=== PATIENT | male | born 1955 | race Caucasian/White ===

== ENCOUNTER → 2017-01-30 | Outpatient (CLI) | payer OTHER | END | disposition home or self-care (01) | LOC: LAB 10:38 | PROVIDERS: ATTEND Internal Medicine | DX: J45.31 Mild persistent asthma with (acute) exacerbation (principal) | CPT/HCPCS: 87086 ==

== ENCOUNTER 2017-07-10 16:49 | Inpatient (IN) | payer OTHER ==
[~2017-07-10] VITALS: Ht 165.1 cm; Wt 83.9 kg
[~2017-07-10 16:49] MED LIST: ASPI81CH43 PO; DOCU-94 PO; GABA-339 PO; IBUP800T24 PO; LOSA50TA6 PO; MORP15TA PO; OMEP20CA74 PO; SERT-274 PO
[2017-07-10] MEDS ORDERED: SODIUM CHLORIDE 0.9% 1,000 ML IV ONE (17:45)
[2017-07-10 17:55] LABS: Basophils # (auto) 0.1 uL; Basophils % (auto) 0.6 % (0.0-2.0); CONDITION Y; Eosinophils # (auto) 0.1 uL; Hemoglobin 15.6 g/dL (12.2-16.2); Mean Corpuscular Hemoglobin 29.9 pg (28.0-32.0); Mean Corpuscular Hgb Conc. 34.7 g/dL (32.0-36.0); Mean Corpuscular Volume 85.9 fL (80.0-100.0); Mean Platelet Volume 7.1 fL (7.4-10.4); Monocytes # (auto) 0.4 uL; Monocytes % (auto) 3.8 % (0.0-12.0); Neutrophils # (auto) 6.8 uL; Neutrophils % (auto) 65.6 % (37.0-80.0); Platelet Count (auto) 350 10^3/uL (140-450); Red Cell Distribution Width 14.3 % (11.6-16.0); White Blood Cell 10.4 10^3/uL (4.4-10.8)
[2017-07-10 18:12] LABS: Albumin 3.5 g/dL (3.4-5.0); BUN/Creatinine Ratio 11.8; Potassium 3.9 mmol/L (3.5-5.1)
[2017-07-10 18:14] LABS: Bilirubin, Total 0.4 mg/dL (0.2-1.0); Total Protein 7.4 g/dL (6.4-8.2)
[2017-07-10 18:18] LABS: Acetaminophen < 2.0 ug/mL (10-30); Salicylate < 1.7 mg/dL (2.8-20.0)
[2017-07-10] MEDS: SODIUM CHLORIDE 0.9% 1,000 ML IV SCH (20:01)
[2017-07-10] MEDS ORDERED: ONDANSETRON HCL 4 MG/2 ML VIAL IV PRN (20:15)
[2017-07-10] MEDS ORDERED: MORPHINE SULF INJ 2 MG/ML SYRINGE 1ML IV PRN (20:15)
[2017-07-10] MEDS ORDERED: DOCUSATE SOD 100 MG CAP PO PRN (20:15)
[2017-07-10] MEDS ORDERED: METOCLOPRAMIDE HCL 5MG/ml INJ 2ml VIAL IV PRN (20:15)
[2017-07-10] MEDS ORDERED: ALUM & MAG HYDROX-SIMETH LIQ(MAALOX) 30 ML PO PRN (20:15)
[2017-07-10] MEDS ORDERED: NITROGLYCERIN 0.4 MG SL TAB SL PRN (20:15)
[2017-07-10] MEDS ORDERED: DEXTROSE (50%) 50ML SYRG IV PRN (20:15)
[2017-07-10] MEDS: InsuLIN REG 1unit/0.01ml Soln (100units/ml) SC SCH (22:00)
[2017-07-10] MEDS: ACCU-CHEK COMFORT CURVE STRIP VI SCH (22:06)
[2017-07-11 00:53] VITALS: BP 166/102
[2017-07-11] MEDS: InsuLIN REG 1unit/0.01ml Soln (100units/ml) SC SCH ×6 (07:00→22:34)
[2017-07-11] MEDS: ACCU-CHEK COMFORT CURVE STRIP VI SCH ×4 (07:22→22:00)
[2017-07-11 08:19] LABS: Basophils # (auto) 0 uL; Basophils % (auto) 0.4 % (0.0-2.0); CONDITION Y; Eosinophils # (auto) 0.1 uL; Eosinophils % (auto) 0.6 % (0.0-7.0); Hematocrit 46.6 % (36.0-46.0); Hemoglobin 15.9 g/dL (12.2-16.2); Lymphocytes # (auto) 3.2 uL; Lymphocytes % (auto) 29.6 % (10.0-50.0); Mean Corpuscular Hemoglobin 29.8 pg (28.0-32.0); Mean Corpuscular Hgb Conc. 34.2 g/dL (32.0-36.0); Mean Corpuscular Volume 87.3 fL (80.0-100.0); Mean Platelet Volume 7.1 fL (7.4-10.4); Monocytes # (auto) 0.6 uL; Monocytes % (auto) 5.3 % (0.0-12.0); Neutrophils # (auto) 6.9 uL; Neutrophils % (auto) 64.1 % (37.0-80.0); Platelet Count (auto) 388 10^3/uL (140-450); Red Cell Distribution Width 14.4 % (11.6-16.0); White Blood Cell 10.8 10^3/uL (4.4-10.8)
[2017-07-11 08:33] LABS: Potassium 3.8 mmol/L (3.5-5.1)
[2017-07-11 08:38] LABS: Albumin 3.7 g/dL (3.4-5.0); BUN/Creatinine Ratio 11.6; Calcium 9.2 mg/dL (8.5-10.1)
[2017-07-11 08:40] LABS: Bilirubin, Total 0.5 mg/dL (0.2-1.0); Total Protein 7.7 g/dL (6.4-8.2)
[2017-07-11] MEDS: SODIUM CHLORIDE 0.9% 1,000 ML IV SCH (12:41)
[2017-07-11 22:00] VITALS: BP 156/94
[2017-07-11] MEDS: HYDROcodone-ACET 5/325MG TAB PO PRN (22:26)
[2017-07-12] MEDS: HYDROcodone-ACET 5/325MG TAB PO PRN ×3 (04:42→20:21)
[2017-07-12 05:12] VITALS: BP 155/74
[2017-07-12] MEDS: SODIUM CHLORIDE 0.9% 1,000 ML IV SCH ×2 (05:21→22:01)
[2017-07-12 06:24] LABS: Basophils # (auto) 0 uL; Basophils % (auto) 0.3 % (0.0-2.0); CONDITION Y; Eosinophils # (auto) 0.1 uL; Eosinophils % (auto) 1.3 % (0.0-7.0); Hematocrit 45.9 % (36.0-46.0); Hemoglobin 15.9 g/dL (12.2-16.2); Lymphocytes # (auto) 4.1 uL; Lymphocytes % (auto) 42.8 % (10.0-50.0); Mean Corpuscular Hemoglobin 30.3 pg (28.0-32.0); Mean Corpuscular Hgb Conc. 34.7 g/dL (32.0-36.0); Mean Corpuscular Volume 87.3 fL (80.0-100.0); Mean Platelet Volume 7.4 fL (7.4-10.4); Monocytes # (auto) 0.6 uL; Monocytes % (auto) 5.7 % (0.0-12.0); Neutrophils # (auto) 4.8 uL; Neutrophils % (auto) 49.9 % (37.0-80.0); Platelet Count (auto) 384 10^3/uL (140-450); Red Cell Distribution Width 14.4 % (11.6-16.0); White Blood Cell 9.7 10^3/uL (4.4-10.8)
[2017-07-12 06:45] LABS: Albumin 3.6 g/dL (3.4-5.0); Potassium 3.6 mmol/L (3.5-5.1)
[2017-07-12 06:48] LABS: BUN/Creatinine Ratio 17.9
[2017-07-12 06:50] LABS: Bilirubin, Total 0.6 mg/dL (0.2-1.0); Total Protein 7.4 g/dL (6.4-8.2)
[2017-07-12] MEDS: ACCU-CHEK COMFORT CURVE STRIP VI SCH ×4 (07:10→21:38)
[2017-07-12] MEDS: InsuLIN REG 1unit/0.01ml Soln (100units/ml) SC SCH ×4 (07:11→21:38)
[2017-07-12 08:00] VITALS: BP 198/89
[2017-07-12] MEDS ORDERED: cloNIDine HCL 0.1 MG TAB PO PRN (12:45)
[2017-07-12 20:00] VITALS: BP 121/49
[2017-07-12 22:00] VITALS: BP 121/49
[2017-07-13] MEDS: HYDROcodone-ACET 5/325MG TAB PO PRN ×2 (01:19→10:48)
[2017-07-13 05:00] VITALS: BP 144/78
[2017-07-13] MEDS: InsuLIN REG 1unit/0.01ml Soln (100units/ml) SC SCH ×4 (06:02→21:56)
[2017-07-13] MEDS: ACCU-CHEK COMFORT CURVE STRIP VI SCH ×4 (06:03→21:56)
[2017-07-13 09:00] VITALS: BP 147/83
[2017-07-13] MEDS ORDERED: HYDROcodone-ACET 10/325MG TAB PO ONE (12:30)
[2017-07-13 12:35] VITALS: BP 155/73
[2017-07-13] MEDS ORDERED: IBUP800T24 PO (15:48)
[2017-07-13] MEDS ORDERED: OMEP20CA74 PO (15:50)
[2017-07-13] MEDS ORDERED: INSUINJ IJ (15:52)
[2017-07-13] MEDS ORDERED: INSUINJ2 SC (15:53)
[2017-07-13] MEDS ORDERED: HYDR-2651 PO (15:54)
[2017-07-13] MEDS ORDERED: ASPI-498 PO (15:56)
[2017-07-13] MEDS ORDERED: LORazepam 2MG/ML-1ML VIAL IV PRN (16:15)
[2017-07-13] MEDS: HYDROcodone-ACET 10/325MG TAB PO PRN ×2 (16:20→20:30)
[2017-07-13 17:00] VITALS: BP 156/66
[2017-07-13] MEDS: SODIUM CHLORIDE 0.9% 1,000 ML IV SCH (17:41)
[2017-07-13 22:00] VITALS: BP 158/63
[2017-07-14] MEDS: HYDROcodone-ACET 10/325MG TAB PO PRN ×2 (02:49→08:45)
[2017-07-14] MEDS: InsuLIN REG 1unit/0.01ml Soln (100units/ml) SC SCH ×2 (06:33→11:30)
[2017-07-14] MEDS: ACCU-CHEK COMFORT CURVE STRIP VI SCH ×2 (06:33→11:30)
[2017-07-14] MEDS: SODIUM CHLORIDE 0.9% 1,000 ML IV SCH (07:21)
[2017-07-14] MEDS ORDERED: cefTRIAXone 1GM/50ML D5W 50 ML IV SCH (11:45)
== END 2017-07-14 16:08 | disposition home or self-care (01) | DRG 948 ==
LOC: EDBD 16:49 → EDUNIT# 16:49 → ER 16:58 → TELE 16:59 → TELE-WESTW 22:35
PROVIDERS: ADMIT Internal Medicine; ATTEND Family Medicine
DX: R41.82 Altered mental status, unspecified (principal); R45.851 Suicidal ideations; E11.40 Type 2 diabetes mellitus with diabetic neuropathy, unspecified; N39.0 Urinary tract infection, site not specified; E11.65 Type 2 diabetes mellitus with hyperglycemia; E66.01 Morbid (severe) obesity due to excess calories; M54.89 Other dorsalgia; F32.9 Major depressive disorder, single episode, unspecified; F41.9 Anxiety disorder, unspecified; I10 Essential (primary) hypertension; M51.36 Other intervertebral disc degeneration, lumbar region; G89.4 Chronic pain syndrome; J44.9 Chronic obstructive pulmonary disease, unspecified; Z86.73 Personal history of transient ischemic attack (TIA), and cerebral infarction without residual deficits; Z87.11 Personal history of peptic ulcer disease; Z79.4 Long term (current) use of insulin; Z83.3 Family history of diabetes mellitus; Z82.49 Family history of ischemic heart disease and other diseases of the circulatory system; Z91.041 Radiographic dye allergy status; Z79.82 Long term (current) use of aspirin; T42.4X5A Adverse effect of benzodiazepines, initial encounter
CPT/HCPCS: 36415; 51702; 70450; 71010; 80053; 80320; 80329; 82962; 85025; 96360; 99291; J1815

== ENCOUNTER 2017-07-14 13:55 | Emergency (ER) | payer OTHER ==
[~2017-07-14] VITALS: Ht 160 cm; Wt 72.6 kg
[~2017-07-14 13:55] MED LIST changes: +ASPI-498 PO; +HYDR-2651 PO; +INSUINJ IJ; +INSUINJ2 SC
[2017-07-14] MEDS ORDERED: HYDROcodone-ACET 5/325MG TAB PO ONE (15:30)
[2017-07-14] MEDS ORDERED: cloNIDine HCL 0.1 MG TAB PO ONE (15:30)
[2017-07-14] MEDS ORDERED: MORPHINE SULFATE 4 MG/ML SYRG IM ONE (17:00)
[2017-07-14] MEDS ORDERED: ONDANSETRON ODT 4 MG TAB PO ONE (17:00)
[2017-07-14 17:01] VITALS: BP 123/83
== END 2017-07-14 17:22 | disposition short-term general hospital (02) ==
LOC: ER 13:55
DX: F32.9 Major depressive disorder, single episode, unspecified (principal); F41.9 Anxiety disorder, unspecified; G89.29 Other chronic pain; R45.851 Suicidal ideations; M54.9 Dorsalgia, unspecified; J44.9 Chronic obstructive pulmonary disease, unspecified; E11.22 Type 2 diabetes mellitus with diabetic chronic kidney disease; N18.6 End stage renal disease; I12.0 Hypertensive chronic kidney disease with stage 5 chronic kidney disease or end stage renal disease; Z90.710 Acquired absence of both cervix and uterus; Z90.49 Acquired absence of other specified parts of digestive tract; I25.2 Old myocardial infarction
CPT/HCPCS: 96372; 99285; J2270

== ENCOUNTER 2017-08-19 15:20 | Inpatient (IN) | payer OTHER ==
[~2017-08-19] VITALS: Ht 162.6 cm; Wt 76.3 kg
[2017-08-19 15:00] VITALS: BP 152/75
[~2017-08-19 15:20] MED LIST changes: -ASPI81CH43 PO; -DOCU-94 PO; -GABA-339 PO; -LOSA50TA6 PO; -MORP15TA PO; -SERT-274 PO
[2017-08-19 18:00] VITALS: BP 110/62
[2017-08-19 21:16] VITALS: BP 135/75
[2017-08-19] MEDS ORDERED: GABA-497 PO (21:49)
[2017-08-19] MEDS ORDERED: LOSA25TA9 PO (21:49)
[2017-08-19] MEDS ORDERED: MORP30TA39 PO (21:49)
[2017-08-19] MEDS ORDERED: SERT-138 PO (21:49)
[2017-08-19] MEDS ORDERED: SODIUM CHLORIDE 0.9% 1,000 ML IV SCH (23:56)
[2017-08-20] MEDS ORDERED: DEXTROSE (50%) 50ML SYRG IV PRN
[2017-08-20] MEDS ORDERED: TEMAZEPAM 15 MG CAP PO PRN
[2017-08-20] MEDS ORDERED: ACETAMINOPHEN 325 MG TAB PO PRN
[2017-08-20] MEDS ORDERED: ONDANSETRON HCL 4 MG/2 ML VIAL IV PRN
[2017-08-20] MEDS ORDERED: hydrALAZINE HCL 25 MG TAB PO ONE (00:15)
[2017-08-20] MEDS: InsuLIN REG 1unit/0.01ml Soln (100units/ml) SC SCH ×4 (00:52→18:31)
[2017-08-20 00:59] LABS: Basophils # (auto) 0.1 uL; Basophils % (auto) 0.7 % (0.0-2.0); Eosinophils # (auto) 0.1 uL; Eosinophils % (auto) 0.6 % (0.0-7.0); Hematocrit 41.6 % (36.0-46.0); Hemoglobin 14.2 g/dL (12.2-16.2); Lymphocytes # (auto) 3.4 uL; Lymphocytes % (auto) 38.1 % (10.0-50.0); Mean Corpuscular Hemoglobin 30.6 pg (28.0-32.0); Mean Corpuscular Hgb Conc. 34.1 g/dL (32.0-36.0); Mean Corpuscular Volume 89.7 fL (80.0-100.0); Mean Platelet Volume 7.3 fL (6.9-10.8); Monocytes # (auto) 0.6 uL; Monocytes % (auto) 6.7 % (0.0-12.0); Neutrophils # (auto) 4.8 uL; Neutrophils % (auto) 53.9 % (37.0-80.0); Nucleated Red Blood Cells % 0.1 %; Platelet Count (auto) 253 10^3/uL (140-450); Red Cell Distribution Width 14.2 % (11.8-14.3); White Blood Cell 8.9 10^3/uL (4.4-10.8)
[2017-08-20 01:21] LABS: Albumin 3.6 g/dL (3.4-5.0); Calcium 9.1 mg/dL (8.5-10.1); Potassium 3.3 mmol/L (3.5-5.1)
[2017-08-20 01:23] LABS: BUN/Creatinine Ratio 18.4
[2017-08-20 01:30] LABS: Bilirubin, Total 0.5 mg/dL (0.2-1.0); Total Protein 7.1 g/dL (6.4-8.2)
[2017-08-20 05:29] VITALS: BP 139/70
[2017-08-20] MEDS: ACCU-CHEK COMFORT CURVE STRIP VI SCH ×4 (06:22→18:00)
[2017-08-20 09:00] VITALS: BP 152/92
[2017-08-20] MEDS ORDERED: LOSARTAN POTASSIUM 25 MG TAB PO SCH (10:00)
[2017-08-20] MEDS ORDERED: ENOXAPARIN SOD 40 MG/0.4 ML SYRINGE SC SCH (10:00)
[2017-08-20] MEDS ORDERED: SERTRALINE HCL 50 MG TAB PO SCH (10:00)
[2017-08-20] MEDS ORDERED: FAMOTIDINE 20 MG TAB PO SCH (10:00)
[2017-08-20] MEDS ORDERED: GABAPENTIN 300 MG CAP PO SCH (10:00)
[2017-08-20] MEDS: hydrALAZINE HCL 25 MG TAB PO SCH ×2 (11:12→11:17)
[2017-08-20 13:00] VITALS: BP 145/74
[2017-08-20] MEDS ORDERED: HYDROcodone-ACET 5/325MG TAB PO PRN ×2 (13:00)
[2017-08-20] MEDS ORDERED: MORPHINE SULF INJ 2 MG/ML SYRINGE 1ML IV ONE (13:45)
[2017-08-20 17:00] VITALS: BP 153/96
== END 2017-08-20 20:00 | DRG 918 ==
LOC: TELE-CENTR 15:20
PROVIDERS: ADMIT Internal Medicine; ATTEND Internal Medicine
DX: T50.992A Poisoning by other drugs, medicaments and biological substances, intentional self-harm, initial encounter (principal); I10 Essential (primary) hypertension; F32.9 Major depressive disorder, single episode, unspecified; F12.90 Cannabis use, unspecified, uncomplicated; E11.9 Type 2 diabetes mellitus without complications; G89.29 Other chronic pain; M54.9 Dorsalgia, unspecified; J44.9 Chronic obstructive pulmonary disease, unspecified; Z82.49 Family history of ischemic heart disease and other diseases of the circulatory system; Y92.098 Other place in other non-institutional residence as the place of occurrence of the external cause; Z86.73 Personal history of transient ischemic attack (TIA), and cerebral infarction without residual deficits; Z59.0 Homelessness; Z81.8 Family history of other mental and behavioral disorders; Z91.041 Radiographic dye allergy status
CPT/HCPCS: 36415; 80053; 80307; 82962; 85025; J1815

== ENCOUNTER 2017-08-21 08:30 | Emergency (ER) | payer OTHER ==
[~2017-08-21] VITALS: Ht 160 cm; Wt 77.1 kg
[~2017-08-21 08:30] MED LIST changes: +GABA-497 PO; -HYDR-2651 PO; +HYDR25TA35 PO; +LOSA25TA9 PO; +MORP30TA39 PO; +SERT-138 PO
[2017-08-21] MEDS ORDERED: OMEPRAZOLE 20MG/10ML ORAL SUSP PO ONE (10:45)
[2017-08-21] MEDS ORDERED: SERTRALINE HCL 50 MG TAB PO ONE (10:45)
[2017-08-21] MEDS ORDERED: LOSARTAN POTASSIUM 25 MG TAB PO ONE (10:45)
[2017-08-21] MEDS ORDERED: ASPirin-EC 81 mg tab PO ONE (10:45)
[2017-08-21] MEDS ORDERED: hydrALAZINE HCL 25 MG TAB PO ONE (10:45)
[2017-08-21] MEDS ORDERED: IBUPROFEN 800 MG TAB PO ONE (10:45)
[2017-08-21] MEDS ORDERED: PANTOPRAZOLE 40 MG TAB PO SCH (11:00)
[2017-08-21] MEDS ORDERED: InsuLIN REG 1unit/0.01ml Soln (100units/ml) SC SCH ×2 (11:30→12:00)
[2017-08-21] MEDS ORDERED: DEXTROSE (50%) 50ML SYRG IV ONE (11:45)
[2017-08-21] MEDS ORDERED: ACCU-CHEK COMFORT CURVE STRIP VI SCH (12:00)
[2017-08-21] MEDS ORDERED: DEXTROSE (50%) 50ML SYRG IV PRN (12:00)
[2017-08-21] MEDS ORDERED: GABAPENTIN 300 MG CAP PO ONE (14:45)
[2017-08-21 15:33] VITALS: BP 157/98
[2017-08-21] MEDS ORDERED: InsuLIN REG 1unit/0.01ml Soln (100units/ml) SC ONE (17:00)
[2017-08-21] MEDS ORDERED: ACCU-CHEK COMFORT CURVE STRIP VI ONE (17:00)
[2017-08-21] MEDS ORDERED: IBUPROFEN 800 MG TAB PO SCH (18:00)
[2017-08-21] MEDS ORDERED: GABAPENTIN 300 MG CAP PO SCH (22:00)
[2017-08-21] MEDS ORDERED: hydrALAZINE HCL 25 MG TAB PO SCH (22:00)
[2017-08-22] MEDS ORDERED: SERTRALINE HCL 50 MG TAB PO SCH (10:00)
[2017-08-22] MEDS ORDERED: ASPirin-EC 81 mg tab PO SCH (10:00)
[2017-08-22] MEDS ORDERED: OMEPRAZOLE 20MG/10ML ORAL SUSP PO SCH (10:00)
[2017-08-22] MEDS ORDERED: LOSARTAN POTASSIUM 25 MG TAB PO SCH (10:00)
== END 2017-08-21 15:57 | disposition short-term general hospital (02) ==
LOC: ER 08:30
DX: R45.851 Suicidal ideations (principal); F31.9 Bipolar disorder, unspecified; E11.9 Type 2 diabetes mellitus without complications; I12.0 Hypertensive chronic kidney disease with stage 5 chronic kidney disease or end stage renal disease; N18.6 End stage renal disease; Z90.49 Acquired absence of other specified parts of digestive tract; Z90.710 Acquired absence of both cervix and uterus
CPT/HCPCS: 96372; 99285; J1815

== ENCOUNTER 2017-11-15 19:44 | Emergency (ER) | payer OTHER, MEDICAID ==
[~2017-11-15] VITALS: Ht 162.6 cm; Wt 72.6 kg
[~2017-11-15 19:44] MED LIST changes: -GABA-497 PO; +GABA300C10 PO; +MORP-74 PO; -MORP30TA39 PO
[2017-11-15] MEDS ORDERED: LIDOCAINE 1% HCL (LOCAL ANESTH.) INJ 20ML MDV ONE (19:59)
[2017-11-15] MEDS ORDERED: ONDANSETRON HCL 4 MG/2 ML VIAL IV ONE (20:15)
[2017-11-15] MEDS ORDERED: HYDROmorphone HCL 2 MG/ML VL IV ONE (20:15)
[2017-11-15 21:46] VITALS: BP 150/81
[2017-11-15] MEDS ORDERED: HYDROcodone-ACET 10/325MG TAB PO ONE (22:00)
== END 2017-11-15 22:42 | disposition home or self-care (01) ==
LOC: ER 19:44 → EDBD 19:44 → ER 22:42
DX: S39.012A Strain of muscle, fascia and tendon of lower back, initial encounter (principal); M79.1 Myalgia; J44.9 Chronic obstructive pulmonary disease, unspecified; I12.0 Hypertensive chronic kidney disease with stage 5 chronic kidney disease or end stage renal disease; E11.22 Type 2 diabetes mellitus with diabetic chronic kidney disease; N18.6 End stage renal disease; G89.29 Other chronic pain; Z79.4 Long term (current) use of insulin; Z90.710 Acquired absence of both cervix and uterus; Z90.49 Acquired absence of other specified parts of digestive tract; Z86.73 Personal history of transient ischemic attack (TIA), and cerebral infarction without residual deficits; Z91.041 Radiographic dye allergy status; X58.XXXA Exposure to other specified factors, initial encounter; Y93.89 Activity, other specified; Y99.8 Other external cause status; Y92.89 Other specified places as the place of occurrence of the external cause
CPT/HCPCS: 72131; 96374; 96375; 99284; J1170; J2001; J2405; 93005

== ENCOUNTER 2017-11-16 14:31 | Emergency (ER) | payer OTHER, MEDICAID ==
[~2017-11-16] VITALS: Ht 165.1 cm; Wt 73.9 kg
[2017-11-16 14:57] VITALS: BP 169/89
[2017-11-16] MEDS ORDERED: HYDROmorphone HCL 2 MG/ML VL IM ONE (16:00)
[2017-11-16] MEDS ORDERED: ONDANSETRON ODT 4 MG TAB PO ONE (16:00)
== END 2017-11-16 17:15 | disposition home or self-care (01) ==
LOC: ER 14:31
DX: S33.5XXA Sprain of ligaments of lumbar spine, initial encounter (principal); J44.9 Chronic obstructive pulmonary disease, unspecified; I12.0 Hypertensive chronic kidney disease with stage 5 chronic kidney disease or end stage renal disease; E11.22 Type 2 diabetes mellitus with diabetic chronic kidney disease; N18.6 End stage renal disease; Z79.4 Long term (current) use of insulin; Z91.041 Radiographic dye allergy status; Z90.49 Acquired absence of other specified parts of digestive tract; Z90.710 Acquired absence of both cervix and uterus; Z90.89 Acquired absence of other organs; X58.XXXA Exposure to other specified factors, initial encounter; Y93.89 Activity, other specified; Y99.8 Other external cause status; Y92.89 Other specified places as the place of occurrence of the external cause
CPT/HCPCS: 93005; 96372; 99283; J1170; Q0162

== ENCOUNTER 2017-11-19 14:51 | Emergency (ER) | payer OTHER, MEDICAID ==
[~2017-11-19] VITALS: Ht 162.6 cm; Wt 61.2 kg
[2017-11-19 16:11] VITALS: BP 156/90
[2017-11-19] MEDS ORDERED: HYDROmorphone HCL 2 MG/ML VL IM ONE (17:30)
[2017-11-19] MEDS ORDERED: PROMETHAZINE HCL 25 MG/ML 1ML IM ONE (17:30)
== END 2017-11-19 18:27 | disposition home or self-care (01) ==
LOC: EDUNIT# 14:51 → EDBD 14:51 → ER 14:58
DX: G89.29 Other chronic pain (principal); M54.5 Low back pain; J20.9 Acute bronchitis, unspecified; J44.9 Chronic obstructive pulmonary disease, unspecified; I12.0 Hypertensive chronic kidney disease with stage 5 chronic kidney disease or end stage renal disease; E11.22 Type 2 diabetes mellitus with diabetic chronic kidney disease; N18.6 End stage renal disease; Z79.4 Long term (current) use of insulin; Z90.49 Acquired absence of other specified parts of digestive tract; Z90.710 Acquired absence of both cervix and uterus; Z79.899 Other long term (current) drug therapy; Z91.041 Radiographic dye allergy status
CPT/HCPCS: 96372; 99284; J1170; J2550

== ENCOUNTER 2018-01-24 10:05 | Emergency (ER) | payer OTHER, MEDICAID ==
[~2018-01-24] VITALS: Ht 160 cm; Wt 68.0 kg
[2018-01-24 10:43] LABS: Basophils # (auto) 0.1 uL; Basophils % (auto) 0.8 % (0.0-2.0); Eosinophils # (auto) 0.1 uL; Eosinophils % (auto) 0.6 % (0.0-7.0); Hematocrit 43.6 % (36.0-46.0); Hemoglobin 14.8 g/dL (12.2-16.2); Lymphocytes % (auto) 25.9 % (10.0-50.0); Mean Corpuscular Hemoglobin 29.3 pg (28.0-32.0); Mean Corpuscular Volume 86.1 fL (80.0-100.0); Monocytes # (auto) 0.5 uL; Neutrophils # (auto) 7.8 uL; Neutrophils % (auto) 68.7 % (37.0-80.0); Nucleated Red Blood Cells % 0.1 %; Platelet Count (auto) 245 10^3/uL (140-450); Red Blood Cells 5.07 10^6/uL (4.0-5.20); Red Cell Distribution Width 14.1 % (11.8-14.3); White Blood Cell 11.4 10^3/uL (4.4-10.8)
[2018-01-24 10:48] LABS: Urine Bacteria NONE SEEN /hpf (None Seen); Urine Blood Negative /uL (Negative); Urine Specific Gravity 1.028 (1.001-1.035); Urine WBC 3 /hpf (0 - 5)
[2018-01-24 11:02] LABS: Alanine Aminotransferase 19 U/L (13-56); Albumin 3.9 g/dL (3.4-5.0); Anion Gap 11 (5-15); Aspartate Aminotransferase 9 U/L (15-37); BUN/Creatinine Ratio 17.9; Blood Urea Nitrogen 15 mg/dL (7-18); Calcium 8.9 mg/dL (8.5-10.1); Carbon Dioxide 22 mmol/L (21-32); Chloride 101 mmol/L (98-107); GFR African American 88 mL/min; GFR Non-African American 73 mL/min; Glucose 382 mg/dL (74-106); Magnesium 2.1 mg/dL (1.6-2.6); Potassium 3.8 mmol/L (3.5-5.1); Sodium 134 mmol/L (136-145)
[2018-01-24 11:07] LABS: Alkaline Phosphatase 130 U/L (45-117); Bilirubin, Total 0.5 mg/dL (0.2-1.0); Total Protein 7.5 g/dL (6.4-8.2)
[2018-01-24] MEDS ORDERED: cefTRIAXone 1GM/10ml IVPUSH 10 ML IV ONE (13:00)
[2018-01-24] MEDS ORDERED: cefTRIAXone SOD 1,000 MG VL IM ONE (13:15)
[2018-01-24 13:21] VITALS: BP 145/77
== END 2018-01-24 13:41 | disposition home or self-care (01) ==
LOC: ER 10:05
DX: J18.9 Pneumonia, unspecified organism (principal); E11.69 Type 2 diabetes mellitus with other specified complication; J44.9 Chronic obstructive pulmonary disease, unspecified; I10 Essential (primary) hypertension; Z90.710 Acquired absence of both cervix and uterus; Z90.49 Acquired absence of other specified parts of digestive tract; Z90.89 Acquired absence of other organs; Z79.4 Long term (current) use of insulin; Z91.041 Radiographic dye allergy status
CPT/HCPCS: 36415; 74176; 80053; 81001; 83605; 83735; 84484; 85025; 87040; 93005; 96372; 99285; J0696

== ENCOUNTER 2018-04-04 20:19 | Emergency (ER) | payer OTHER, MEDICAID ==
[~2018-04-04] VITALS: Ht 162.6 cm; Wt 59.9 kg
[2018-04-05 02:29] LABS: Basophils # (auto) 0 uL; Basophils % (auto) 0.3 % (0.0-2.0); Eosinophils # (auto) 0.1 uL; Eosinophils % (auto) 1.1 % (0.0-7.0); Hematocrit 47.5 % (36.0-46.0); Hemoglobin 16.5 g/dL (12.2-16.2); Lymphocytes # (auto) 3.4 uL; Lymphocytes % (auto) 36.8 % (10.0-50.0); Mean Corpuscular Hemoglobin 29.6 pg (28.0-32.0); Mean Corpuscular Hgb Conc. 34.8 g/dL (32.0-36.0); Mean Corpuscular Volume 85.2 fL (80.0-100.0); Monocytes # (auto) 0.6 uL; Neutrophils % (auto) 54.8 % (37.0-80.0); Nucleated Red Blood Cells % 0.2 %; Platelet Count (auto) 244 10^3/uL (140-450); Red Blood Cells 5.57 10^6/uL (4.0-5.20); Red Cell Distribution Width 14.9 % (11.8-14.3); White Blood Cell 9.1 10^3/uL (4.4-10.8)
[2018-04-05] MEDS ORDERED: MORPHINE SULFATE INJECTION 1 ML ONE (03:36)
[2018-04-05] MEDS ORDERED: MORPHINE SULFATE 4 MG/ML SYR/VIAL IV ONE ×2 (03:45→06:00)
[2018-04-05] MEDS ORDERED: ONDANSETRON HCL 4 MG/2 ML VIAL IV ONE (03:45)
[2018-04-05 04:36] LABS: Albumin 3.7 g/dL (3.4-5.0); BUN/Creatinine Ratio 12.2; Calcium 8.7 mg/dL (8.5-10.1)
[2018-04-05 04:39] LABS: Bilirubin, Total 0.5 mg/dL (0.2-1.0); Total Protein 7.5 g/dL (6.4-8.2)
[2018-04-05 05:58] VITALS: BP 149/82
[2018-04-05] MEDS ORDERED: POTASSIUM CHL 20 Meq TABLET PO ONE (06:00)
== END 2018-04-05 06:35 | disposition home or self-care (01) ==
LOC: EDBD 20:19 → ER 20:19
DX: K29.00 Acute gastritis without bleeding (principal); K57.30 Diverticulosis of large intestine without perforation or abscess without bleeding; E87.6 Hypokalemia; J44.9 Chronic obstructive pulmonary disease, unspecified; E11.9 Type 2 diabetes mellitus without complications; I10 Essential (primary) hypertension; Z90.49 Acquired absence of other specified parts of digestive tract; Z90.89 Acquired absence of other organs; Z90.710 Acquired absence of both cervix and uterus; Z91.041 Radiographic dye allergy status
CPT/HCPCS: 36415; 71045; 74176; 80053; 82150; 83690; 84484; 85025; 93005; 96374; 96375; 96376; 99285; J2270; J2405

== ENCOUNTER 2018-04-10 21:49 | Inpatient (IN) | payer OTHER, MEDICAID ==
[~2018-04-10] VITALS: Ht 160 cm; Wt 71.1 kg
[2018-04-10 23:12] LABS: Basophils # (auto) 0.1 uL; Basophils % (auto) 1.1 % (0.0-2.0); Eosinophils # (auto) 0.1 uL; Eosinophils % (auto) 1.5 % (0.0-7.0); Hematocrit 43.9 % (36.0-46.0); Hemoglobin 15.3 g/dL (12.2-16.2); Lymphocytes # (auto) 3.5 uL; Lymphocytes % (auto) 36.8 % (10.0-50.0); Mean Corpuscular Hemoglobin 29.9 pg (28.0-32.0); Mean Corpuscular Hgb Conc. 34.7 g/dL (32.0-36.0); Mean Corpuscular Volume 86.1 fL (80.0-100.0); Monocytes # (auto) 0.5 uL; Monocytes % (auto) 5.6 % (0.0-12.0); Neutrophils # (auto) 5.2 uL; Nucleated Red Blood Cells % 0.2 %; Platelet Count (auto) 253 10^3/uL (140-450); Red Cell Distribution Width 14.5 % (11.8-14.3); White Blood Cell 9.4 10^3/uL (4.4-10.8)
[2018-04-10 23:30] LABS: Potassium 3.5 mmol/L (3.5-5.1)
[2018-04-10 23:40] LABS: Albumin 3.8 g/dL (3.4-5.0); BUN/Creatinine Ratio 22.1; Bilirubin, Total 0.3 mg/dL (0.2-1.0); Calcium 8.6 mg/dL (8.5-10.1); Total Protein 7.4 g/dL (6.4-8.2)
[2018-04-11] MEDS ORDERED: MORPHINE SULFATE 8mg/ml INJ SDV IV ONE ×2 (05:45→08:30)
[2018-04-11] MEDS ORDERED: ONDANSETRON HCL 4 MG/2 ML VIAL IV ONE ×2 (05:45→09:15)
[2018-04-11] MEDS ORDERED: SODIUM CHLORIDE 0.9% 500 ML IVB ONE (06:30)
[2018-04-11] MEDS ORDERED: PANTOPRAZOLE 40 MG/10 ML VIAL IV STA (06:30)
[2018-04-11 08:03] LABS: Magnesium 2.2 mg/dL (1.6-2.6)
[2018-04-11] MEDS ORDERED: ONDANSETRON HCL 4 MG/2 ML VIAL ONE (09:13)
[2018-04-11 09:33] LABS: Urine Bacteria FEW /hpf (None Seen); Urine Blood Negative /uL (Negative); Urine Mucus FEW (None Seen); Urine Specific Gravity 1.029 (1.001-1.035); Urine WBC 10 /hpf (0 - 5)
[2018-04-11] MEDS ORDERED: SERTRALINE HCL 50 MG TAB PO ONE ×2 (11:00→11:30)
[2018-04-11] MEDS ORDERED: LOSARTAN POTASSIUM 25 MG TAB PO ONE ×2 (11:00→11:30)
[2018-04-11] MEDS ORDERED: MORPHINE SULFATE 8mg/ml INJ SDV IV PRN (11:15)
[2018-04-11] MEDS ORDERED: TEMAZEPAM 15 MG CAP PO PRN (11:15)
[2018-04-11] MEDS ORDERED: DEXTROSE (50%) 50ML SYRG IV PRN (11:15)
[2018-04-11] MEDS ORDERED: DOCUSATE SOD 100 MG CAP PO PRN (11:15)
[2018-04-11] MEDS ORDERED: IBUPROFEN 800 MG TAB PO PRN (11:15)
[2018-04-11] MEDS ORDERED: ACETAMINOPHEN 325 MG TAB PO PRN (11:15)
[2018-04-11] MEDS ORDERED: HYDROcodone-ACET 5/325MG TAB PO PRN (11:15)
[2018-04-11] MEDS ORDERED: PANTOPRAZOLE 40 MG TAB PO ONE ×2 (11:15→11:30)
[2018-04-11] MEDS ORDERED: NITROGLYCERIN 0.4 MG SL TAB SL PRN (11:15)
[2018-04-11] MEDS ORDERED: cefTRIAXone 1GM/10ml IVPUSH 10 ML IV ONE (11:15)
[2018-04-11] MEDS ORDERED: MULTIPLE VITAMIN TAB PO ONE (11:30)
[2018-04-11] MEDS ORDERED: FAMOTIDINE 20 MG TAB PO ONE (11:30)
[2018-04-11] MEDS: ACCU-CHEK COMFORT CURVE STRIP VI SCH ×3 (11:55→21:46)
[2018-04-11] MEDS: InsuLIN REG 1unit/0.01ml Soln (100units/ml) SC SCH ×3 (11:55→21:46)
[2018-04-11] MEDS: metroNIDAZOLE 500MG/100ML 100 ML IV SCH ×3 (12:29→23:03)
[2018-04-11] MEDS: MORPHINE SULFATE 8mg/ml INJ SDV IV PRN ×4 (12:35→23:04)
[2018-04-11 13:30] VITALS: BP 149/75
[2018-04-11] MEDS: MORPHINE SULF 30 mg ER tab PO SCH ×2 (14:50→21:46)
[2018-04-11] MEDS: SODIUM CHLOR 0.9% PF (SALINE LOCK) 10ML VIAL/SYR IV SCH ×2 (14:50→21:46)
[2018-04-11] MEDS ORDERED: ALPR0.25 PO (15:14)
[2018-04-11 17:00] VITALS: BP 133/62
[2018-04-11] MEDS: INSULIN NPH Isophane (HUMAN) 1unit/0.01ml Susp(100units/ml) SC SCH (17:22)
[2018-04-11 17:59] LABS: Hematocrit 39.3 % (36.0-46.0); Hemoglobin 13.5 g/dL (12.2-16.2)
[2018-04-11 21:29] VITALS: BP 111/67
[2018-04-11] MEDS: PANTOPRAZOLE 40 MG/10 ML VIAL IV SCH (21:46)
[2018-04-11] MEDS ORDERED: FAMOTIDINE 20 MG TAB PO SCH (22:00)
[2018-04-12] MEDS: MORPHINE SULFATE 8mg/ml INJ SDV IV PRN ×5 (03:09→21:55)
[2018-04-12 04:48] VITALS: BP 109/50
[2018-04-12 05:55] LABS: Basophils # (auto) 0 uL; Basophils % (auto) 0.5 % (0.0-2.0); Eosinophils # (auto) 0.1 uL; Eosinophils % (auto) 2.2 % (0.0-7.0); Hematocrit 38.6 % (36.0-46.0); Hemoglobin 13.6 g/dL (12.2-16.2); Lymphocytes # (auto) 2.6 uL; Lymphocytes % (auto) 42.9 % (10.0-50.0); Mean Corpuscular Hemoglobin 30.5 pg (28.0-32.0); Mean Corpuscular Hgb Conc. 35.1 g/dL (32.0-36.0); Monocytes # (auto) 0.4 uL; Monocytes % (auto) 6.8 % (0.0-12.0); Neutrophils # (auto) 2.9 uL; Neutrophils % (auto) 47.6 % (37.0-80.0); Nucleated Red Blood Cells % 0.1 %; Platelet Count (auto) 189 10^3/uL (140-450); Red Blood Cells 4.44 10^6/uL (4.0-5.20); Red Cell Distribution Width 14.8 % (11.8-14.3); White Blood Cell 6.1 10^3/uL (4.4-10.8)
[2018-04-12] MEDS: metroNIDAZOLE 500MG/100ML 100 ML IV SCH ×4 (06:08→23:48)
[2018-04-12] MEDS: SODIUM CHLOR 0.9% PF (SALINE LOCK) 10ML VIAL/SYR IV SCH ×3 (06:08→23:42)
[2018-04-12] MEDS: MORPHINE SULF 30 mg ER tab PO SCH ×3 (06:09→23:42)
[2018-04-12] MEDS: ACCU-CHEK COMFORT CURVE STRIP VI SCH ×4 (06:09→21:56)
[2018-04-12] MEDS: InsuLIN REG 1unit/0.01ml Soln (100units/ml) SC SCH ×4 (06:09→21:56)
[2018-04-12] MEDS: INSULIN NPH Isophane (HUMAN) 1unit/0.01ml Susp(100units/ml) SC SCH ×2 (06:09→17:32)
[2018-04-12 06:12] LABS: Albumin 3.2 g/dL (3.4-5.0); BUN/Creatinine Ratio 15.5; Calcium 8.4 mg/dL (8.5-10.1)
[2018-04-12 06:14] LABS: Bilirubin, Total 0.4 mg/dL (0.2-1.0); Total Protein 6.2 g/dL (6.4-8.2)
[2018-04-12] MEDS: cefTRIAXone 1GM/10ml IVPUSH 10 ML IV SCH (08:19)
[2018-04-12 09:00] VITALS: BP 133/54
[2018-04-12] MEDS: MULTIPLE VITAMIN TAB PO SCH (09:37)
[2018-04-12] MEDS: PANTOPRAZOLE 40 MG/10 ML VIAL IV SCH ×2 (09:37→23:42)
[2018-04-12] MEDS: LOSARTAN POTASSIUM 25 MG TAB PO SCH (09:38)
[2018-04-12] MEDS: SERTRALINE HCL 50 MG TAB PO SCH (09:39)
[2018-04-12] MEDS ORDERED: PANTOPRAZOLE 40 MG TAB PO SCH (10:00)
[2018-04-12] MEDS ORDERED: GOLYTELY 4L KIT PO ONE (12:00)
[2018-04-12 13:00] VITALS: BP 150/75
[2018-04-12 17:00] VITALS: BP 125/51
[2018-04-12] MEDS: ONDANSETRON HCL 4 MG/2 ML VIAL IV PRN ×2 (17:22→21:55)
[2018-04-12 22:06] VITALS: BP 137/69
[2018-04-13] MEDS: MORPHINE SULFATE 8mg/ml INJ SDV IV PRN ×4 (02:30→18:43)
[2018-04-13 04:58] VITALS: BP 121/65
[2018-04-13] MEDS ORDERED: GOLYTELY 4L KIT PO ONE (06:00)
[2018-04-13] MEDS: MORPHINE SULF 30 mg ER tab PO SCH ×2 (06:10→13:35)
[2018-04-13] MEDS: metroNIDAZOLE 500MG/100ML 100 ML IV SCH ×3 (06:10→17:16)
[2018-04-13] MEDS: InsuLIN REG 1unit/0.01ml Soln (100units/ml) SC SCH ×3 (06:22→17:17)
[2018-04-13] MEDS: SODIUM CHLOR 0.9% PF (SALINE LOCK) 10ML VIAL/SYR IV SCH ×2 (06:22→13:35)
[2018-04-13] MEDS: INSULIN NPH Isophane (HUMAN) 1unit/0.01ml Susp(100units/ml) SC SCH ×2 (06:23→17:17)
[2018-04-13] MEDS: ACCU-CHEK COMFORT CURVE STRIP VI SCH ×3 (06:24→17:17)
[2018-04-13 07:23] VITALS: BP 144/81
[2018-04-13 08:00] VITALS: BP 144/81
[2018-04-13] MEDS: cefTRIAXone 1GM/10ml IVPUSH 10 ML IV SCH (08:50)
[2018-04-13] MEDS: LOSARTAN POTASSIUM 25 MG TAB PO SCH (08:51)
[2018-04-13] MEDS: PANTOPRAZOLE 40 MG/10 ML VIAL IV SCH (08:51)
[2018-04-13] MEDS: SERTRALINE HCL 50 MG TAB PO SCH (08:52)
[2018-04-13] MEDS: MULTIPLE VITAMIN TAB PO SCH (08:52)
[2018-04-13 08:57] LABS: INR 1.01 (0.9-1.15); Partial Thromboplastin Time 25.2 sec (23.78-33.04); Prothrombin Time 10.8 sec (9.27-12.13)
[2018-04-13] MEDS ORDERED: SODIUM CHLORIDE LOCK 10 ML ONE (10:27)
[2018-04-13] MEDS ORDERED: LIDOCAINE VISCOUS 2% 15ML UD ONE (10:27)
[2018-04-13] MEDS ORDERED: FLUMAZENIL 0.1 MG/ML INJ 10ML MDV IV ONE (10:27)
[2018-04-13] MEDS ORDERED: NALOXONE HCL 0.4 MG/ML VIAL ONE (10:27)
[2018-04-13] MEDS ORDERED: diphenhdrAMINE HCL 50 MG/1 ML VL ONE (10:28)
[2018-04-13] MEDS: fentaNYL CITRATE 100 MCG/2 ML VL ONE ×2 (11:30→11:40)
[2018-04-13] MEDS: MIDAZOLAM HCL 5 MG/ML-1ML VIAL ONE ×2 (11:30→11:40)
[2018-04-13] MEDS ORDERED: HYOSCYAMINE SULF 0.125 MG TAB PO PRN (12:00)
[2018-04-13 16:15] VITALS: BP 154/71
[2018-04-13] MEDS ORDERED: PANT40T PO (17:02)
[2018-04-13] MEDS ORDERED: DICY10CA55 PO (17:02)
[2018-04-13] MEDS ORDERED: CEPH-37 PO (17:09)
[2018-04-13 17:33] VITALS: BP 144/81
[2018-04-13] MEDS ORDERED: PANTOPRAZOLE 40 MG TAB PO SCH (22:00)
== END 2018-04-13 19:10 | disposition home or self-care (01) | DRG 394 ==
LOC: ER 21:49 → TELE 21:50 → TELE-WESTW 04-11 13:15
PROVIDERS: ADMIT Internal Medicine; ATTEND Internal Medicine
PROC: 0DB68ZX Excision of Stomach, Via Natural or Artificial Opening Endoscopic, Diagnostic (ICD-10-PCS; principal; 2018-04-13 11:28)
PROC: 0DJD8ZZ Inspection of Lower Intestinal Tract, Via Natural or Artificial Opening Endoscopic (ICD-10-PCS; 2018-04-13 11:28)
DX: K64.8 Other hemorrhoids (principal); N39.0 Urinary tract infection, site not specified; E11.21 Type 2 diabetes mellitus with diabetic nephropathy; K92.2 Gastrointestinal hemorrhage, unspecified; F32.9 Major depressive disorder, single episode, unspecified; E11.22 Type 2 diabetes mellitus with diabetic chronic kidney disease; F41.9 Anxiety disorder, unspecified; J44.9 Chronic obstructive pulmonary disease, unspecified; K44.9 Diaphragmatic hernia without obstruction or gangrene; K52.9 Noninfective gastroenteritis and colitis, unspecified; N18.2 Chronic kidney disease, stage 2 (mild); G89.29 Other chronic pain; K29.80 Duodenitis without bleeding; I12.9 Hypertensive chronic kidney disease with stage 1 through stage 4 chronic kidney disease, or unspecified chronic kidney disease; I25.10 Atherosclerotic heart disease of native coronary artery without angina pectoris; I25.2 Old myocardial infarction; Z72.0 Tobacco use; Z87.11 Personal history of peptic ulcer disease; Z90.710 Acquired absence of both cervix and uterus; Z91.041 Radiographic dye allergy status; Z79.899 Other long term (current) drug therapy; Z90.49 Acquired absence of other specified parts of digestive tract; Z90.89 Acquired absence of other organs; Z79.4 Long term (current) use of insulin
CPT/HCPCS: 36415; 74176; 80053; 81001; 82150; 82962; 83036; 83690; 83735; 84443; 85014; 85018; 85025; 85610; 85730; 87045; 87081; 87086; 87493; 87899; 93306; 94761; 96361; 96374; 96375; C9113; J1815; J2250; J2270; J2405; J3490

== ENCOUNTER 2018-05-06 21:36 | Emergency (ER) | payer OTHER, MEDICAID ==
[~2018-05-06] VITALS: Ht 167.6 cm; Wt 77.1 kg
[~2018-05-06 21:36] MED LIST changes: +ALPR0.25 PO; -ASPI-498 PO; +CEPH-37 PO; +DICY10CA55 PO; -IBUP800T24 PO; -OMEP20CA74 PO; +PANT40T PO
[2018-05-06 22:01] LABS: Basophils # (auto) 0.1 uL; Basophils % (auto) 0.6 % (0.0-2.0); Eosinophils # (auto) 0.1 uL; Eosinophils % (auto) 0.5 % (0.0-7.0); Hematocrit 45.7 % (36.0-46.0); Lymphocytes # (auto) 3.5 uL; Lymphocytes % (auto) 34.2 % (10.0-50.0); Mean Corpuscular Hemoglobin 30.2 pg (28.0-32.0); Mean Corpuscular Hgb Conc. 35.1 g/dL (32.0-36.0); Monocytes # (auto) 0.6 uL; Monocytes % (auto) 6.3 % (0.0-12.0); Neutrophils # (auto) 5.9 uL; Neutrophils % (auto) 58.4 % (37.0-80.0); Nucleated Red Blood Cells % 0.1 %; Platelet Count (auto) 282 10^3/uL (140-450); Red Blood Cells 5.31 10^6/uL (4.0-5.20); White Blood Cell 10.1 10^3/uL (4.4-10.8)
[2018-05-06 22:22] LABS: Alanine Aminotransferase 15 U/L (13-56); Albumin 3.8 g/dL (3.4-5.0); Alkaline Phosphatase 142 U/L (45-117); Anion Gap 12 (5-15); Aspartate Aminotransferase 9 U/L (15-37); BUN/Creatinine Ratio 15.1; Bilirubin, Total 0.4 mg/dL (0.2-1.0); Blood Urea Nitrogen 14 mg/dL (7-18); Calcium 8.8 mg/dL (8.5-10.1); Carbon Dioxide 17 mmol/L (21-32); Chloride 103 mmol/L (98-107); GFR African American 78 mL/min; GFR Non-African American 65 mL/min; Glucose 306 mg/dL (74-106); Potassium 3.6 mmol/L (3.5-5.1); Sodium 132 mmol/L (136-145); Total Protein 7.7 g/dL (6.4-8.2)
[2018-05-07] MEDS ORDERED: SODIUM CHLORIDE 0.9% 1,000 ML IV ONE ×2 (07:53)
[2018-05-07] MEDS ORDERED: KETOROLAC TROMETH 30 MG/ML 1ML VIAL IV ONE (08:00)
[2018-05-07 08:14] LABS: Urine Bacteria NONE SEEN /hpf (None Seen); Urine Blood TRACE /uL (Negative); Urine Budding Yeast LOADED /hpf (None Seen); Urine Mucus FEW (None Seen); Urine WBC 183 /hpf (0 - 5); Urine WBC Clumps PRESENT /hpf (None Seen)
[2018-05-07] MEDS ORDERED: InsuLIN REG 1unit/0.01ml Soln (100units/ml) IV ONE (08:15)
[2018-05-07] MEDS ORDERED: cefTRIAXone 1GM/10ml IVPUSH 10 ML IV ONE (10:15)
[2018-05-07 10:22] VITALS: BP 164/75
== END 2018-05-07 10:58 | disposition home or self-care (01) ==
LOC: EDBD 21:36 → ER 21:36
DX: N39.0 Urinary tract infection, site not specified (principal); E11.65 Type 2 diabetes mellitus with hyperglycemia; I25.10 Atherosclerotic heart disease of native coronary artery without angina pectoris; J44.9 Chronic obstructive pulmonary disease, unspecified; N18.9 Chronic kidney disease, unspecified; E11.22 Type 2 diabetes mellitus with diabetic chronic kidney disease; I12.9 Hypertensive chronic kidney disease with stage 1 through stage 4 chronic kidney disease, or unspecified chronic kidney disease; I25.2 Old myocardial infarction; Z87.440 Personal history of urinary (tract) infections; Z91.041 Radiographic dye allergy status; Z79.899 Other long term (current) drug therapy; Z90.49 Acquired absence of other specified parts of digestive tract; Z90.710 Acquired absence of both cervix and uterus
CPT/HCPCS: 36415; 74176; 80053; 81001; 82962; 84484; 85025; 96361; 96374; 96375; 99285; J1815; J1885; J7030; 93005

== ENCOUNTER 2018-07-05 22:09 | Emergency (ER) | payer OTHER, MEDICAID ==
[~2018-07-05] VITALS: Ht 162.6 cm; Wt 64.4 kg
[~2018-07-05 22:09] MED LIST changes: +HYDR-4296 PO; -HYDR25TA35 PO
[2018-07-05] MEDS ORDERED: PROMETHAZINE HCL 25 MG/ML 1ML IV ONE (23:30)
[2018-07-05] MEDS ORDERED: SODIUM CHLORIDE 0.9% 1,000 ML IV ONE (23:30)
[2018-07-06] MEDS ORDERED: fentaNYL CITRATE 100 MCG/2 ML VL IV ONE ×2 (00:45→03:15)
[2018-07-06] MEDS ORDERED: PANTOPRAZOLE 40 MG/10 ML VIAL IV STA (01:57)
[2018-07-06] MEDS ORDERED: SODIUM CHLORIDE 0.9% 1,000 ML IVB ONE (01:57)
[2018-07-06] MEDS ORDERED: ONDANSETRON HCL 4 MG/2 ML VIAL IV ONE (02:00)
[2018-07-06] MEDS ORDERED: IOHEXOL 300 MG/ML 100ML BOTTLE IJ ONE (02:04)
[2018-07-06 02:36] LABS: Basophils # (auto) 0.1 uL; Basophils % (auto) 0.9 % (0.0-2.0); Eosinophils # (auto) 0 uL; Eosinophils % (auto) 0.1 % (0.0-7.0); Hematocrit 48.5 % (36.0-46.0); Hemoglobin 16.7 g/dL (12.2-16.2); Lymphocytes % (auto) 25.5 % (10.0-50.0); Mean Corpuscular Hemoglobin 30.2 pg (28.0-32.0); Mean Corpuscular Hgb Conc. 34.4 g/dL (32.0-36.0); Mean Corpuscular Volume 87.9 fL (80.0-100.0); Monocytes # (auto) 0.5 uL; Monocytes % (auto) 4.2 % (0.0-12.0); Neutrophils # (auto) 8.1 uL; Neutrophils % (auto) 69.3 % (37.0-80.0); Nucleated Red Blood Cells % 0.1 %; Platelet Count (auto) 281 10^3/uL (140-450); Red Blood Cells 5.52 10^6/uL (4.0-5.20); White Blood Cell 11.6 10^3/uL (4.4-10.8)
[2018-07-06 02:55] LABS: Alanine Aminotransferase 19 U/L (13-56); Amylase 77 U/L (25-115); Anion Gap 12 (5-15); Aspartate Aminotransferase 13 U/L (15-37); BUN/Creatinine Ratio 11.1; Blood Urea Nitrogen 10 mg/dL (7-18); Carbon Dioxide 20 mmol/L (21-32); Chloride 107 mmol/L (98-107); GFR African American 81 mL/min; GFR Non-African American 67 mL/min; Glucose 181 mg/dL (74-106); Lipase 40 U/L (73-393); Magnesium 2.2 mg/dL (1.6-2.6); Potassium 3.5 mmol/L (3.5-5.1); Sodium 139 mmol/L (136-145)
[2018-07-06 03:01] LABS: Alkaline Phosphatase 123 U/L (45-117); Bilirubin, Total 0.5 mg/dL (0.2-1.0); Total Protein 8.3 g/dL (6.4-8.2)
[2018-07-06 03:06] LABS: INR 1.06 (0.9-1.15); Partial Thromboplastin Time 29.9 sec (23.78-33.04); Prothrombin Time 11.3 sec (9.27-12.13)
[2018-07-06] MEDS ORDERED: KETOROLAC TROMETH 30 MG/ML 1ML VIAL IV ONE (03:15)
[2018-07-06] MEDS ORDERED: PROMETHAZINE HCL 25 MG/ML 1ML IV ONE (03:45)
[2018-07-06 05:13] LABS: Urine Bacteria FEW /hpf (None Seen); Urine Blood TRACE /uL (Negative); Urine Specific Gravity 1.013 (1.001-1.035); Urine WBC 24 /hpf (0 - 5)
[2018-07-06 05:28] LABS: Amphetamine Screen, Urine NEGATIVE (NEGATIVE); Barbiturate Scree,Urine NEGATIVE (NEGATIVE); Benzodiazephine Screen, Urine POSITIVE (NEGATIVE); Cannabinoid Screen, Urine NEGATIVE (NEGATIVE); Cocaine Screen, Urine NEGATIVE (NEGATIVE); Opiate Scree,Urine NEGATIVE (NEGATIVE); Phencyclidine Screen, Urine NEGATIVE (NEGATIVE)
[2018-07-06 05:39] VITALS: BP 172/97
== END 2018-07-06 05:37 | disposition home or self-care (01) ==
LOC: ER 22:09 → EDBD 22:09 → ER 07-06 05:37
DX: N39.0 Urinary tract infection, site not specified (principal); R10.9 Unspecified abdominal pain; R11.2 Nausea with vomiting, unspecified; Z79.4 Long term (current) use of insulin; Z79.899 Other long term (current) drug therapy
CPT/HCPCS: 36415; 74176; 80053; 80307; 81001; 82150; 83605; 83690; 83735; 84484; 85025; 85610; 85730; 87086; 94761; 96361; 96374; 96375; 99285; C9113; J1885; J2550; J3010; J7030; Q9967

== ENCOUNTER 2018-07-10 03:00 | Observation (INO) | payer OTHER, MEDICAID ==
[~2018-07-10] VITALS: Ht 165.1 cm; Wt 65.8 kg
[2018-07-10 04:22] LABS: Basophils # (auto) 0.1 uL; Basophils % (auto) 0.6 % (0.0-2.0); Eosinophils # (auto) 0 uL; Hematocrit 50.6 % (36.0-46.0); Hemoglobin 17.5 g/dL (12.2-16.2); Lymphocytes # (auto) 2.3 uL; Lymphocytes % (auto) 20.3 % (10.0-50.0); Mean Corpuscular Hemoglobin 29.8 pg (28.0-32.0); Mean Corpuscular Hgb Conc. 34.6 g/dL (32.0-36.0); Monocytes # (auto) 0.3 uL; Neutrophils # (auto) 8.6 uL; Neutrophils % (auto) 76.1 % (37.0-80.0); Nucleated Red Blood Cells % 0.2 %; Platelet Count (auto) 330 10^3/uL (140-450); Red Blood Cells 5.88 10^6/uL (4.0-5.20); White Blood Cell 11.3 10^3/uL (4.4-10.8)
[2018-07-10 04:38] LABS: Alanine Aminotransferase 32 U/L (13-56); Albumin 4.3 g/dL (3.4-5.0); Amylase 82 U/L (25-115); Anion Gap 14 (5-15); Aspartate Aminotransferase 19 U/L (15-37); BUN/Creatinine Ratio 8.6; Blood Urea Nitrogen 8 mg/dL (7-18); Calcium 9.1 mg/dL (8.5-10.1); Carbon Dioxide 19 mmol/L (21-32); Chloride 102 mmol/L (98-107); GFR African American 78 mL/min; GFR Non-African American 65 mL/min; Glucose 255 mg/dL (74-106); Lipase 43 U/L (73-393); Potassium 3.3 mmol/L (3.5-5.1); Sodium 135 mmol/L (136-145)
[2018-07-10 04:43] LABS: Alkaline Phosphatase 131 U/L (45-117); Bilirubin, Total 0.9 mg/dL (0.2-1.0); Total Protein 8.8 g/dL (6.4-8.2)
[2018-07-10] MEDS ORDERED: ONDANSETRON HCL 4 MG/2 ML VIAL IV ONE (08:00)
[2018-07-10] MEDS ORDERED: MORPHINE SULFATE 4 MG/ML SYR/VIAL IV ONE (08:00)
[2018-07-10 09:08] LABS: Amphetamine Screen, Urine NEGATIVE (NEGATIVE); Barbiturate Scree,Urine NEGATIVE (NEGATIVE); Benzodiazephine Screen, Urine POSITIVE (NEGATIVE); Cannabinoid Screen, Urine NEGATIVE (NEGATIVE); Cocaine Screen, Urine NEGATIVE (NEGATIVE); Opiate Scree,Urine NEGATIVE (NEGATIVE); Phencyclidine Screen, Urine NEGATIVE (NEGATIVE)
[2018-07-10 09:22] VITALS: BP 177/91
[2018-07-10] MEDS ORDERED: POTASSIUM EFFERVESENT TAB 25 MEQ PO ONE (10:30)
== END 2018-07-10 10:59 | disposition home or self-care (01) | DRG 392 ==
LOC: ER 03:00 → EDBD 03:00 → OVERFLOW 03:01 → ER 10:59
PROVIDERS: ADMIT Anesthesiology; ATTEND Anesthesiology
DX: R10.9 Unspecified abdominal pain (principal); K57.92 Diverticulitis of intestine, part unspecified, without perforation or abscess without bleeding; N39.0 Urinary tract infection, site not specified; R11.2 Nausea with vomiting, unspecified; E87.6 Hypokalemia; K59.01 Slow transit constipation; F13.10 Sedative, hypnotic or anxiolytic abuse, uncomplicated; F10.10 Alcohol abuse, uncomplicated; I25.10 Atherosclerotic heart disease of native coronary artery without angina pectoris; J44.9 Chronic obstructive pulmonary disease, unspecified; I12.9 Hypertensive chronic kidney disease with stage 1 through stage 4 chronic kidney disease, or unspecified chronic kidney disease; E11.22 Type 2 diabetes mellitus with diabetic chronic kidney disease; N18.9 Chronic kidney disease, unspecified; F41.9 Anxiety disorder, unspecified; F32.9 Major depressive disorder, single episode, unspecified; K27.9 Peptic ulcer, site unspecified, unspecified as acute or chronic, without hemorrhage or perforation; G89.29 Other chronic pain; M54.9 Dorsalgia, unspecified
CPT/HCPCS: 36415; 71045; 74176; 80053; 80307; 82150; 83690; 84484; 85025; 93005; 96374; 96375; 99285; G0378; J2270; J2405

== ENCOUNTER 2018-09-05 11:09 | Emergency (ER) | payer OTHER, MEDICAID ==
[~2018-09-05] VITALS: Ht 160 cm; Wt 63.5 kg
[~2018-09-05 11:09] MED LIST changes: +LOSA25TA40 PO; -LOSA25TA9 PO
[2018-09-05] MEDS ORDERED: SODIUM CHLORIDE 0.9% 1,000 ML IV ONE (11:26)
[2018-09-05] MEDS ORDERED: ONDANSETRON HCL 4 MG/2 ML VIAL IV ONE ×2 (11:30→15:45)
[2018-09-05 11:37] LABS: Basophils # (auto) 0.1 uL; Basophils % (auto) 0.7 % (0.0-2.0); Eosinophils # (auto) 0 uL; Hematocrit 49.3 % (36.0-46.0); Hemoglobin 17.3 g/dL (12.2-16.2); Lymphocytes # (auto) 1.8 uL; Lymphocytes % (auto) 15.4 % (10.0-50.0); Mean Corpuscular Hemoglobin 30.4 pg (28.0-32.0); Mean Corpuscular Hgb Conc. 35.1 g/dL (32.0-36.0); Mean Corpuscular Volume 86.6 fL (80.0-100.0); Monocytes # (auto) 0.3 uL; Neutrophils # (auto) 9.4 uL; Neutrophils % (auto) 80.9 % (37.0-80.0); Platelet Count (auto) 304 10^3/uL (140-450); Red Blood Cells 5.69 10^6/uL (4.0-5.20); Red Cell Distribution Width 14.2 % (11.8-14.3); White Blood Cell 11.6 10^3/uL (4.4-10.8)
[2018-09-05] MEDS ORDERED: MORPHINE SULFATE 4 MG/ML SYR/VIAL IV ONE ×2 (11:45→13:30)
[2018-09-05 12:00] LABS: Alanine Aminotransferase 26 U/L (13-56); Albumin 4.8 g/dL (3.4-5.0); Amylase 56 U/L (25-115); Anion Gap 15 (5-15); Aspartate Aminotransferase 20 U/L (15-37); Blood Urea Nitrogen 12 mg/dL (7-18); Carbon Dioxide 20 mmol/L (21-32); Chloride 99 mmol/L (98-107); Glucose 321 mg/dL (74-106); Lipase 60 U/L (73-393); Magnesium 2.3 mg/dL (1.6-2.6); Potassium 3.1 mmol/L (3.5-5.1); Sodium 134 mmol/L (136-145)
[2018-09-05 12:05] LABS: Alkaline Phosphatase 136 U/L (45-117); BUN/Creatinine Ratio 10.9; Bilirubin, Total 0.9 mg/dL (0.2-1.0); GFR African American 64 mL/min; GFR Non-African American 53 mL/min; Total Protein 8.9 g/dL (6.4-8.2)
[2018-09-05] MEDS ORDERED: LABETALOL HCL 5 MG/ML ML 20ML VIAL IV ONE (13:15)
[2018-09-05] MEDS ORDERED: cefTRIAXone 1GM/50ML D5W 50 ML IV ONE (13:30)
[2018-09-05] MEDS ORDERED: POTASSIUM EFFERVESENT TAB 25 MEQ PO ONE (13:45)
[2018-09-05 14:56] VITALS: BP 142/68
== END 2018-09-05 14:45 | disposition home or self-care (01) ==
LOC: EDBD 11:09 → ER 11:09
DX: R11.2 Nausea with vomiting, unspecified (principal); I12.9 Hypertensive chronic kidney disease with stage 1 through stage 4 chronic kidney disease, or unspecified chronic kidney disease; E11.22 Type 2 diabetes mellitus with diabetic chronic kidney disease; N18.9 Chronic kidney disease, unspecified; J44.9 Chronic obstructive pulmonary disease, unspecified; I25.2 Old myocardial infarction; G89.29 Other chronic pain; Z90.49 Acquired absence of other specified parts of digestive tract; Z90.89 Acquired absence of other organs; Z90.710 Acquired absence of both cervix and uterus; Z91.041 Radiographic dye allergy status; Z88.8 Allergy status to other drugs, medicaments and biological substances
CPT/HCPCS: 36415; 74176; 80053; 82150; 83690; 83735; 84484; 85025; 93005; 96374; 96375; 96376; 99285; J0696; J2270; J2405

== ENCOUNTER → 2019-01-12 | Outpatient (CLI) | payer OTHER, MEDICAID ==
[2019-01-12 09:44] LABS: Basophils # (auto) 0 uL; Basophils % (auto) 0.3 % (0.0-2.0); Eosinophils # (auto) 0.1 uL; Eosinophils % (auto) 1.5 % (0.0-7.0); Hemoglobin 14.4 g/dL (12.2-16.2); Lymphocytes # (auto) 2.3 uL; Lymphocytes % (auto) 32.5 % (10.0-50.0); Mean Corpuscular Hemoglobin 30.2 pg (28.0-32.0); Mean Corpuscular Hgb Conc. 34.3 g/dL (32.0-36.0); Mean Corpuscular Volume 88.2 fL (80.0-100.0); Monocytes # (auto) 0.4 uL; Monocytes % (auto) 5.9 % (0.0-12.0); Neutrophils # (auto) 4.2 uL; Neutrophils % (auto) 59.8 % (37.0-80.0); Nucleated Red Blood Cells % 0.1 %; Platelet Count (auto) 228 10^3/uL (140-450); Red Blood Cells 4.76 10^6/uL (4.0-5.20); Red Cell Distribution Width 14.3 % (11.8-14.3); White Blood Cell 7.1 10^3/uL (4.4-10.8)
[2019-01-12 09:47] LABS: Urine Bacteria MOD /hpf (None Seen); Urine Blood Negative /uL (Negative); Urine Hyaline Cast FEW /lpf (0 - 2); Urine Mucus FEW (None Seen); Urine Specific Gravity 1.025 (1.001-1.035); Urine WBC 6 /hpf (0 - 5)
[2019-01-12 10:09] LABS: Potassium 3.7 mmol/L (3.5-5.1)
[2019-01-12 10:15] LABS: Free T4 (Free Thyroxine) 1.12 ng/dL (0.89-1.76)
[2019-01-12 10:18] LABS: Alcohol, Urine < 3.0 mg/dL (0-5); Amphetamine Screen, Urine NEGATIVE (NEGATIVE); Barbiturate Scree,Urine NEGATIVE (NEGATIVE); Benzodiazephine Screen, Urine NEGATIVE (NEGATIVE); Cannabinoid Screen, Urine NEGATIVE (NEGATIVE); Cocaine Screen, Urine NEGATIVE (NEGATIVE); Opiate Scree,Urine NEGATIVE (NEGATIVE); Phencyclidine Screen, Urine NEGATIVE (NEGATIVE)
[2019-01-12 10:19] LABS: Bilirubin, Total 0.3 mg/dL (0.2-1.0); Calcium 8.7 mg/dL (8.5-10.1); Total Protein 7.2 g/dL (6.4-8.2)
== END | disposition home or self-care (01) ==
LOC: LAB 09:00
PROVIDERS: ATTEND Internal Medicine
DX: E11.40 Type 2 diabetes mellitus with diabetic neuropathy, unspecified (principal); F11.20 Opioid dependence, uncomplicated; I11.0 Hypertensive heart disease with heart failure; I50.9 Heart failure, unspecified
CPT/HCPCS: 36415; 80053; 80061; 80307; 81001; 82043; 82607; 83036; 84439; 84443; 85025; 85652

== ENCOUNTER → 2019-02-17 | Outpatient (CLI) | payer OTHER | END | disposition home or self-care (01) | LOC: LAB 15:39 | PROVIDERS: ATTEND Urology | DX: N39.0 Urinary tract infection, site not specified (principal) | CPT/HCPCS: 87086 ==

== ENCOUNTER → 2019-05-26 | Outpatient (CLI) | payer OTHER ==
[2019-05-26 15:35] LABS: Urine Bacteria MANY /hpf (None Seen); Urine Blood Negative /uL (Negative); Urine Mucus FEW (None Seen); Urine Specific Gravity 1.013 (1.001-1.035); Urine WBC 51 /hpf (0 - 5)
== END | disposition home or self-care (01) ==
LOC: LAB 14:37
PROVIDERS: ATTEND Urology
DX: N39.9 Disorder of urinary system, unspecified (principal); R31.29 Other microscopic hematuria
CPT/HCPCS: 81001; 87086; 87088; 87186

== ENCOUNTER → 2019-08-11 | Outpatient (CLI) | payer OTHER ==
[~2019-08-11] MED LIST changes: +LOSA25TA38 PO; -LOSA25TA40 PO; -MORP-74 PO; +MORP30TA5 PO; -SERT-138 PO; +SERT50TA PO
== END | disposition home or self-care (01) ==
LOC: LAB 14:46
PROVIDERS: ATTEND Urology
DX: N39.0 Urinary tract infection, site not specified (principal)
CPT/HCPCS: 87086

== ENCOUNTER → 2019-09-29 | Outpatient (CLI) | payer MEDICARE | END | disposition home or self-care (01) | LOC: LAB 16:10 | PROVIDERS: ATTEND Urology | DX: N39.0 Urinary tract infection, site not specified (principal); J44.9 Chronic obstructive pulmonary disease, unspecified; F32.9 Major depressive disorder, single episode, unspecified; I13.2 Hypertensive heart and chronic kidney disease with heart failure and with stage 5 chronic kidney disease, or end stage renal disease; E11.22 Type 2 diabetes mellitus with diabetic chronic kidney disease; N18.6 End stage renal disease; I50.9 Heart failure, unspecified; I25.10 Atherosclerotic heart disease of native coronary artery without angina pectoris; F17.200 Nicotine dependence, unspecified, uncomplicated; Z90.49 Acquired absence of other specified parts of digestive tract; Z90.710 Acquired absence of both cervix and uterus; Z90.89 Acquired absence of other organs; Z88.8 Allergy status to other drugs, medicaments and biological substances; Z91.048 Other nonmedicinal substance allergy status | CPT/HCPCS: 87086; 87088; 87186 ==

== ENCOUNTER → 2021-04-11 | Outpatient (CLI) | payer MEDICARE | END | disposition home or self-care (01) | LOC: US 10:05 | DX: E04.1 Nontoxic single thyroid nodule (principal); I11.0 Hypertensive heart disease with heart failure; J44.9 Chronic obstructive pulmonary disease, unspecified; F32.9 Major depressive disorder, single episode, unspecified; F17.200 Nicotine dependence, unspecified, uncomplicated; F41.9 Anxiety disorder, unspecified; I50.9 Heart failure, unspecified; Z88.8 Allergy status to other drugs, medicaments and biological substances; Z91.041 Radiographic dye allergy status; Z98.890 Other specified postprocedural states; Z79.899 Other long term (current) drug therapy; Z90.710 Acquired absence of both cervix and uterus | CPT/HCPCS: 10005; 76536; 76942 ==

== ENCOUNTER 2022-08-04 10:12 | Inpatient (IN) | payer MEDICARE ==
[~2022-08-04] VITALS: Ht 167.6 cm; Wt 94.8 kg
[2022-08-04 11:18] LABS: Basophils # (auto) 0 10 ^3/uL (0-0.2); Basophils % (auto) 0.3 % (0.0-2.0); Eosinophils # (auto) 0 10 ^3/uL (0-0.8); Hematocrit 41.5 % (36.0-46.0); Lymphocytes # (auto) 1.1 10 ^3/uL (0.4-5.4); Lymphocytes % (auto) 10.4 % (10.0-50.0); Mean Corpuscular Hemoglobin 29.4 pg (28.0-32.0); Mean Corpuscular Hgb Conc. 33.7 g/dL (32.0-36.0); Mean Corpuscular Volume 87.1 fL (80.0-100.0); Monocytes # (auto) 0.3 10 ^3/uL (0-1.3); Monocytes % (auto) 2.4 % (0.0-12.0); Neutrophils # (auto) 9.6 10 ^3/uL (1.6-8.6); Neutrophils % (auto) 86.9 % (37.0-80.0); Red Blood Cells 4.77 10^6/uL (4.0-5.20); Red Cell Distribution Width 13.3 % (11.8-14.3)
[2022-08-04 11:41] LABS: Potassium 4.7 mmol/L (3.5-5.1)
[2022-08-04 12:12] LABS: Albumin 3.7 g/dL (3.4-5.0); Bilirubin, Total 0.5 mg/dL (0.2-1.0); Calcium 9.2 mg/dL (8.5-10.1); Total Protein 7.4 g/dL (6.4-8.2)
[2022-08-04] MEDS ORDERED: ENOXAPARIN SOD 80 MG/0.8ML SYRINGE SC ONE (12:45)
[2022-08-04] MEDS ORDERED: ONDANSETRON HCL 4 MG/2 ML VIAL IV ONE (13:00)
[2022-08-04] MEDS ORDERED: MORPHINE SULFATE 4 MG/ML SYR/VIAL IV ONE (13:00)
[2022-08-04] MEDS ORDERED: IOHEXOL 350 MG/ML 100ML IJ ONE (17:30)
[2022-08-04 19:20] LABS: Cholesterol 190 mg/dL (< 200); HDL Cholesterol 48 mg/dL (40-59); LDL Cholesterol 121 mg/dL (< 100); Triglycerides 85 mg/dL (< 150)
[2022-08-04 20:10] LABS: Urine Bacteria MANY /hpf (None Seen); Urine Blood 1+ /uL (Negative); Urine Mucus FEW (None Seen); Urine Specific Gravity 1.024 (1.001-1.035); Urine WBC 9 /hpf (0 - 5)
[2022-08-04] MEDS: MORPHINE SULFATE INJ 2 MG/ml SYRG IV PRN (20:11)
[2022-08-04] MEDS: GABAPENTIN 300 MG CAP PO SCH (22:26)
[2022-08-05] VITALS (23 sets, daily range): BP systolic 94–120; BP diastolic 49–69
[2022-08-05] MEDS: MORPHINE SULFATE INJ 2 MG/ml SYRG IV PRN ×3 (02:47→20:47)
[2022-08-05 05:04] LABS: Basophils # (auto) 0.1 10 ^3/uL (0-0.2); Basophils % (auto) 0.7 % (0.0-2.0); Eosinophils # (auto) 0 10 ^3/uL (0-0.8); Eosinophils % (auto) 0.2 % (0.0-7.0); Hematocrit 40.1 % (36.0-46.0); Hemoglobin 13.5 g/dL (12.2-16.2); Lymphocytes # (auto) 2.2 10 ^3/uL (0.4-5.4); Lymphocytes % (auto) 17.5 % (10.0-50.0); Mean Corpuscular Hemoglobin 29.4 pg (28.0-32.0); Mean Corpuscular Hgb Conc. 33.7 g/dL (32.0-36.0); Mean Corpuscular Volume 87.1 fL (80.0-100.0); Monocytes # (auto) 0.8 10 ^3/uL (0-1.3); Monocytes % (auto) 6.3 % (0.0-12.0); Neutrophils # (auto) 9.6 10 ^3/uL (1.6-8.6); Neutrophils % (auto) 75.3 % (37.0-80.0); Red Blood Cells 4.61 10^6/uL (4.0-5.20); Red Cell Distribution Width 13.2 % (11.8-14.3); White Blood Cell 12.7 10^3/uL (4.4-10.8)
[2022-08-05 05:32] LABS: Potassium 4.3 mmol/L (3.5-5.1)
[2022-08-05 05:43] LABS: Albumin 3.5 g/dL (3.4-5.0); Bilirubin, Total 0.6 mg/dL (0.2-1.0); Total Protein 6.7 g/dL (6.4-8.2)
[2022-08-05 07:02] LABS: INR 1.05 (0.9-1.15); Partial Thromboplastin Time 28.5 sec (24.6-33.4)
[2022-08-05] MEDS ORDERED: FAMOTIDINE (10MG/ML) 2ML VL IV ONE ×2 (08:45→13:46)
[2022-08-05] MEDS ORDERED: methylPREDNISolone SOD SUCC 125 MG/2 ML VL IV ONE (08:45)
[2022-08-05] MEDS: ASPirin 81 mg TAB PO SCH (11:38)
[2022-08-05] MEDS ORDERED: methylPREDNISolone SOD SUCC 125 MG/2 ML VL ONE (13:44)
[2022-08-05] MEDS ORDERED: ANGIOMAX 250 MG VIAL IV ONE (13:44)
[2022-08-05] MEDS ORDERED: VERAPAMIL 2.5MG/ML INJ 2ML VIAL IV ONE (13:45)
[2022-08-05] MEDS ORDERED: MIDAZOLAM HCL 2MG/2ML 2ml VIAL (1mg/ml) ONE (13:45)
[2022-08-05] MEDS ORDERED: diphenhdrAMINE HCL 50 MG/1 ML VL ONE (13:45)
[2022-08-05] MEDS ORDERED: fentaNYL CITRATE 100 MCG/2 ML VL ONE (13:45)
[2022-08-05] MEDS ORDERED: SODIUM CHL 0.9% 0 ML ONE (13:45)
[2022-08-05] MEDS ORDERED: HEPARIN SODIUM (PORCINE) 5000 UNITS/ML 1ML VIAL ONE ×2 (13:47→15:39)
[2022-08-05] MEDS ORDERED: LIDOCAINE 2%HCL (LOCAL ANESTH.) INJ 20ML MDV ONE (13:49)
[2022-08-05] MEDS ORDERED: IODIXANOL 320MG/ML 100ML BTL IV ONE (13:49)
[2022-08-05] MEDS ORDERED: HEPARIN DRIP/D5W 100UNITS/ML 250 ML IV SCH ×2 (14:45→15:45)
[2022-08-05] MEDS ORDERED: CLOPIDOGREL BISULFATE 75 MG TAB PO ONE (15:00)
[2022-08-05 15:47] LABS: Basophils # (auto) 0 10 ^3/uL (0-0.2); Basophils % (auto) 0.3 % (0.0-2.0); Eosinophils # (auto) 0 10 ^3/uL (0-0.8); Hematocrit 40.2 % (36.0-46.0); Hemoglobin 13.3 g/dL (12.2-16.2); Lymphocytes # (auto) 0.9 10 ^3/uL (0.4-5.4); Mean Corpuscular Hemoglobin 29.4 pg (28.0-32.0); Mean Corpuscular Volume 89.1 fL (80.0-100.0); Monocytes # (auto) 0.1 10 ^3/uL (0-1.3); Monocytes % (auto) 0.9 % (0.0-12.0); Neutrophils # (auto) 8.7 10 ^3/uL (1.6-8.6); Neutrophils % (auto) 89.8 % (37.0-80.0); Red Blood Cells 4.51 10^6/uL (4.0-5.20); Red Cell Distribution Width 13.1 % (11.8-14.3); White Blood Cell 9.7 10^3/uL (4.4-10.8)
[2022-08-05 16:18] LABS: INR 1.12 (0.9-1.15); Partial Thromboplastin Time 40.7 sec (24.6-33.4)
[2022-08-05] MEDS: GABAPENTIN 300 MG CAP PO SCH (22:22)
[2022-08-05] MEDS: ATORVASTATIN 20 MG TAB PO SCH (22:23)
[2022-08-05] MEDS: CARVEDILOL 3.125 MG TAB PO SCH (22:23)
[2022-08-05 23:11] LABS: INR 1.08 (0.9-1.15); Partial Thromboplastin Time 43.1 sec (24.6-33.4)
[2022-08-06] VITALS (53 sets, daily range): BP systolic 92–120; BP diastolic 39–64
[2022-08-06 04:43] LABS: Basophils # (auto) 0 10 ^3/uL (0-0.2); Basophils % (auto) 0.5 % (0.0-2.0); Eosinophils # (auto) 0 10 ^3/uL (0-0.8); Hematocrit 38.5 % (36.0-46.0); Hemoglobin 12.7 g/dL (12.2-16.2); Lymphocytes # (auto) 1.3 10 ^3/uL (0.4-5.4); Mean Corpuscular Hemoglobin 29.9 pg (28.0-32.0); Mean Corpuscular Volume 90.6 fL (80.0-100.0); Monocytes # (auto) 0.4 10 ^3/uL (0-1.3); Monocytes % (auto) 4.1 % (0.0-12.0); Neutrophils # (auto) 8.8 10 ^3/uL (1.6-8.6); Neutrophils % (auto) 83.4 % (37.0-80.0); Nucleated Red Blood Cells % 0.1 %; Red Blood Cells 4.25 10^6/uL (4.0-5.20); Red Cell Distribution Width 13.1 % (11.8-14.3); White Blood Cell 10.5 10^3/uL (4.4-10.8)
[2022-08-06 04:57] LABS: INR 1.13 (0.9-1.15); Partial Thromboplastin Time 45.3 sec (24.6-33.4)
[2022-08-06 04:58] LABS: BUN/Creatinine Ratio 27.4; Calcium 8.4 mg/dL (8.5-10.1); Potassium 4.4 mmol/L (3.5-5.1)
[2022-08-06] MEDS: ACCU-CHEK COMFORT CURVE STRIP VI SCH (07:00)
[2022-08-06] MEDS: MORPHINE SULFATE INJ 2 MG/ml SYRG IV PRN ×4 (07:51→19:40)
[2022-08-06] MEDS ORDERED: HEPARIN DRIP/D5W 100UNITS/ML 250 ML IV SCH ×2 (08:30→19:45)
[2022-08-06] MEDS: FUROSEMIDE 20 MG/2 ML VIAL IV SCH (10:00)
[2022-08-06] MEDS: CARVEDILOL 3.125 MG TAB PO SCH ×2 (10:00→21:48)
[2022-08-06] MEDS: ASPirin 81 mg TAB PO SCH (10:00)
[2022-08-06] MEDS ORDERED: INSULIN LANTUS (GLARGINE) 1 /0.01ml (100units/ml) SC ONE (12:00)
[2022-08-06] MEDS ORDERED: DEXTROSE (50%) 50ML SYRG IV PRN (12:00)
[2022-08-06 12:34] LABS: INR 1.04 (0.9-1.15); Partial Thromboplastin Time 50.2 sec (24.6-33.4)
[2022-08-06] MEDS: InsuLIN REG 1unit/0.01ml Soln (100units/ml) SC SCH ×2 (17:38→21:50)
[2022-08-06] MEDS ORDERED: CLOPIDOGREL 300 MG TAB PO ONE (17:45)
[2022-08-06 19:35] LABS: INR 0.87 (0.9-1.15)
[2022-08-06] MEDS: ATORVASTATIN 20 MG TAB PO SCH (21:48)
[2022-08-06] MEDS: GABAPENTIN 300 MG CAP PO SCH (21:48)
[2022-08-06] MEDS: RANOLAZINE ER 500 MG TAB PO SCH (21:48)
[2022-08-07] VITALS (21 sets, daily range): BP systolic 84–126; BP diastolic 41–53
[2022-08-07] MEDS: MORPHINE SULFATE INJ 2 MG/ml SYRG IV PRN ×4 (01:24→23:31)
[2022-08-07 01:42] LABS: INR 1.04 (0.9-1.15); Partial Thromboplastin Time 38.9 sec (24.6-33.4)
[2022-08-07] MEDS ORDERED: HEPARIN DRIP/D5W 100UNITS/ML 250 ML IV SCH ×2 (02:45→15:15)
[2022-08-07] MEDS: INSULIN LANTUS (GLARGINE) 1 /0.01ml (100units/ml) SC SCH (06:56)
[2022-08-07] MEDS: InsuLIN REG 1unit/0.01ml Soln (100units/ml) SC SCH ×4 (06:56→22:37)
[2022-08-07 08:16] LABS: Basophils # (auto) 0.1 10 ^3/uL (0-0.2); Basophils % (auto) 0.5 % (0.0-2.0); Eosinophils # (auto) 0.1 10 ^3/uL (0-0.8); Eosinophils % (auto) 0.5 % (0.0-7.0); Hematocrit 36.7 % (36.0-46.0); Hemoglobin 12.3 g/dL (12.2-16.2); Lymphocytes # (auto) 2.2 10 ^3/uL (0.4-5.4); Lymphocytes % (auto) 19.9 % (10.0-50.0); Mean Corpuscular Hemoglobin 29.7 pg (28.0-32.0); Mean Corpuscular Hgb Conc. 33.6 g/dL (32.0-36.0); Mean Corpuscular Volume 88.4 fL (80.0-100.0); Monocytes # (auto) 0.7 10 ^3/uL (0-1.3); Neutrophils # (auto) 8.1 10 ^3/uL (1.6-8.6); Neutrophils % (auto) 73.1 % (37.0-80.0); Red Blood Cells 4.15 10^6/uL (4.0-5.20); Red Cell Distribution Width 13.1 % (11.8-14.3); White Blood Cell 11.1 10^3/uL (4.4-10.8)
[2022-08-07 08:38] LABS: INR 1.06 (0.9-1.15); Partial Thromboplastin Time 61.6 sec (24.6-33.4)
[2022-08-07] MEDS: CARVEDILOL 3.125 MG TAB PO SCH ×2 (09:23→22:00)
[2022-08-07 09:41] LABS: Potassium 4.6 mmol/L (3.5-5.1)
[2022-08-07 09:42] LABS: Albumin 2.9 g/dL (3.4-5.0); Bilirubin, Total 0.6 mg/dL (0.2-1.0); Calcium 8.1 mg/dL (8.5-10.1); Total Protein 6.2 g/dL (6.4-8.2)
[2022-08-07] MEDS: RANOLAZINE ER 500 MG TAB PO SCH ×2 (10:15→22:26)
[2022-08-07] MEDS: DAPAGLIFLOZIN 5 MG TAB PO SCH (10:15)
[2022-08-07] MEDS: FUROSEMIDE 20 MG/2 ML VIAL IV SCH (10:15)
[2022-08-07] MEDS: CLOPIDOGREL BISULFATE 75 MG TAB PO SCH (10:15)
[2022-08-07] MEDS: ASPirin 81 mg TAB PO SCH (10:15)
[2022-08-07 14:33] LABS: INR 1.09 (0.9-1.15)
[2022-08-07 14:52] LABS: Partial Thromboplastin Time 80.1 sec (24.6-33.4)
[2022-08-07] MEDS: ACCU-CHEK COMFORT CURVE STRIP VI SCH ×2 (17:59→22:28)
[2022-08-07] MEDS ORDERED: ALBUTEROL SULF 2.5 MG/0.5ML(0.5%) NEB SOLN NEB SCH (18:00)
[2022-08-07] MEDS ORDERED: IPRATROPIUM BROM 0.5 MG/2.5ML INH SOL NEB SCH (18:00)
[2022-08-07] MEDS ORDERED: IPRATROPIUM BROM 0.5 MG/2.5ML INH SOL NEB PRN (19:00)
[2022-08-07] MEDS ORDERED: ALBUTEROL SULF 2.5 MG/0.5ML(0.5%) NEB SOLN NEB PRN (19:00)
[2022-08-07] MEDS: ATORVASTATIN 20 MG TAB PO SCH (22:26)
[2022-08-07] MEDS: GABAPENTIN 300 MG CAP PO SCH (22:26)
[2022-08-08] VITALS (22 sets, daily range): BP systolic 90–132; BP diastolic 43–62
[2022-08-08] MEDS: MORPHINE SULFATE INJ 2 MG/ml SYRG IV PRN ×6 (03:33→23:58)
[2022-08-08] MEDS: InsuLIN REG 1unit/0.01ml Soln (100units/ml) SC SCH ×4 (06:18→21:48)
[2022-08-08] MEDS: INSULIN LANTUS (GLARGINE) 1 /0.01ml (100units/ml) SC SCH (06:19)
[2022-08-08] MEDS: ACCU-CHEK COMFORT CURVE STRIP VI SCH ×4 (06:19→21:44)
[2022-08-08] MEDS: FUROSEMIDE 20 MG/2 ML VIAL IV SCH (10:16)
[2022-08-08] MEDS: ASPirin 81 mg TAB PO SCH (10:16)
[2022-08-08] MEDS: RANOLAZINE ER 500 MG TAB PO SCH ×2 (10:17→21:44)
[2022-08-08] MEDS: PANTOPRAZOLE 40 MG TAB PO SCH (10:17)
[2022-08-08] MEDS: DAPAGLIFLOZIN 5 MG TAB PO SCH (10:18)
[2022-08-08] MEDS: CLOPIDOGREL BISULFATE 75 MG TAB PO SCH (10:18)
[2022-08-08] MEDS: CARVEDILOL 3.125 MG TAB PO SCH ×2 (10:19→21:44)
[2022-08-08] MEDS ORDERED: SENNA 8.6 MG TAB PO ONE ×2 (10:45→11:45)
[2022-08-08] MEDS ORDERED: FLUoxetine HCL 20 MG CAP PO ONE (11:45)
[2022-08-08] MEDS: SENNA 8.6 MG TAB PO SCH (18:13)
[2022-08-08] MEDS: ATORVASTATIN 20 MG TAB PO SCH (21:44)
[2022-08-08] MEDS: GABAPENTIN 300 MG CAP PO SCH (21:49)
[2022-08-09] VITALS (21 sets, daily range): BP systolic 99–123; BP diastolic 42–64
[2022-08-09] MEDS: MORPHINE SULFATE INJ 2 MG/ml SYRG IV PRN ×5 (04:30→22:34)
[2022-08-09] MEDS: NITROGLYCERIN 0.4 MG SL TAB SL PRN ×2 (05:06→05:14)
[2022-08-09 05:13] LABS: Basophils # (auto) 0.1 10 ^3/uL (0-0.2); Basophils % (auto) 0.8 % (0.0-2.0); Eosinophils # (auto) 0.1 10 ^3/uL (0-0.8); Eosinophils % (auto) 1.6 % (0.0-7.0); Hemoglobin 13.4 g/dL (12.2-16.2); Lymphocytes # (auto) 3.4 10 ^3/uL (0.4-5.4); Lymphocytes % (auto) 36.1 % (10.0-50.0); Mean Corpuscular Hemoglobin 29.7 pg (28.0-32.0); Mean Corpuscular Hgb Conc. 34.2 g/dL (32.0-36.0); Mean Corpuscular Volume 86.8 fL (80.0-100.0); Monocytes # (auto) 0.8 10 ^3/uL (0-1.3); Neutrophils # (auto) 5.1 10 ^3/uL (1.6-8.6); Neutrophils % (auto) 53.5 % (37.0-80.0); Nucleated Red Blood Cells % 0.1 %; Red Cell Distribution Width 13.5 % (11.8-14.3); White Blood Cell 9.5 10^3/uL (4.4-10.8)
[2022-08-09 05:30] LABS: Anion Gap 9 (5-15); BUN/Creatinine Ratio 24.5; Blood Urea Nitrogen 25 mg/dL (7-18); Calcium 8.3 mg/dL (8.5-10.1); Carbon Dioxide 23 mmol/L (21-32); Chloride 101 mmol/L (98-107); GFR African American 69 mL/min; GFR Non-African American 57 mL/min; Glucose 183 mg/dL (74-106); Sodium 133 mmol/L (136-145)
[2022-08-09] MEDS ORDERED: methylPREDNISolone SOD SUCC 125 MG/2 ML VL ONE (06:01)
[2022-08-09] MEDS ORDERED: ANGIOMAX 250 MG VIAL IV ONE (06:01)
[2022-08-09] MEDS ORDERED: diphenhdrAMINE HCL 50 MG/1 ML VL ONE (06:02)
[2022-08-09] MEDS ORDERED: fentaNYL CITRATE 100 MCG/2 ML VL ONE (06:02)
[2022-08-09] MEDS ORDERED: VERAPAMIL 2.5MG/ML INJ 2ML VIAL IV ONE (06:02)
[2022-08-09] MEDS ORDERED: MIDAZOLAM HCL 2MG/2ML 2ml VIAL (1mg/ml) ONE (06:02)
[2022-08-09] MEDS ORDERED: SODIUM CHL 0.9% 50 ML ONE (06:02)
[2022-08-09] MEDS ORDERED: LIDOCAINE 2%HCL (LOCAL ANESTH.) INJ 20ML MDV ONE (06:02)
[2022-08-09] MEDS ORDERED: FAMOTIDINE (10MG/ML) 2ML VL IV ONE (06:03)
[2022-08-09] MEDS ORDERED: IODIXANOL 320MG/ML 100ML BTL IV ONE ×2 (06:33→06:49)
[2022-08-09] MEDS: InsuLIN REG 1unit/0.01ml Soln (100units/ml) SC SCH ×4 (07:00→23:09)
[2022-08-09] MEDS ORDERED: ASPirin 81 mg TAB ONE (07:00)
[2022-08-09] MEDS: INSULIN LANTUS (GLARGINE) 1 /0.01ml (100units/ml) SC SCH (07:00)
[2022-08-09] MEDS ORDERED: CLOPIDOGREL 300 MG TAB ONE (07:00)
[2022-08-09] MEDS: ACCU-CHEK COMFORT CURVE STRIP VI SCH ×4 (07:00→22:00)
[2022-08-09] MEDS: ASPirin 81 mg TAB PO SCH (07:35)
[2022-08-09] MEDS: CLOPIDOGREL BISULFATE 75 MG TAB PO SCH (07:35)
[2022-08-09] MEDS: DAPAGLIFLOZIN 5 MG TAB PO SCH (11:26)
[2022-08-09] MEDS: FLUoxetine HCL 20 MG CAP PO SCH (11:27)
[2022-08-09] MEDS: PANTOPRAZOLE 40 MG TAB PO SCH (11:28)
[2022-08-09] MEDS: CARVEDILOL 3.125 MG TAB PO SCH ×2 (11:28→22:32)
[2022-08-09] MEDS: RANOLAZINE ER 500 MG TAB PO SCH ×2 (11:28→22:32)
[2022-08-09] MEDS: FUROSEMIDE 20 MG/2 ML VIAL IV SCH (11:29)
[2022-08-09] MEDS: GABAPENTIN 300 MG CAP PO SCH (22:00)
[2022-08-09] MEDS: ATORVASTATIN 20 MG TAB PO SCH (22:31)
[2022-08-09] MEDS: SENNA 8.6 MG TAB PO SCH (22:32)
[2022-08-10] VITALS (17 sets, daily range): BP systolic 98–119; BP diastolic 41–63
[2022-08-10] MEDS: MORPHINE SULFATE INJ 2 MG/ml SYRG IV PRN ×6 (03:39→21:11)
[2022-08-10 06:08] LABS: Basophils # (auto) 0 10 ^3/uL (0-0.2); Basophils % (auto) 0.1 % (0.0-2.0); Eosinophils # (auto) 0 10 ^3/uL (0-0.8); Hematocrit 39.4 % (36.0-46.0); Hemoglobin 13.2 g/dL (12.2-16.2); Lymphocytes # (auto) 1.8 10 ^3/uL (0.4-5.4); Lymphocytes % (auto) 13.8 % (10.0-50.0); Mean Corpuscular Hemoglobin 29.5 pg (28.0-32.0); Mean Corpuscular Hgb Conc. 33.5 g/dL (32.0-36.0); Mean Corpuscular Volume 87.9 fL (80.0-100.0); Monocytes # (auto) 0.8 10 ^3/uL (0-1.3); Monocytes % (auto) 6.1 % (0.0-12.0); Neutrophils # (auto) 10.5 10 ^3/uL (1.6-8.6); Red Blood Cells 4.48 10^6/uL (4.0-5.20); Red Cell Distribution Width 13.3 % (11.8-14.3); White Blood Cell 13.1 10^3/uL (4.4-10.8)
[2022-08-10 06:19] LABS: Albumin 3.1 g/dL (3.4-5.0); Calcium 8.9 mg/dL (8.5-10.1); Potassium 4.7 mmol/L (3.5-5.1)
[2022-08-10 06:23] LABS: BUN/Creatinine Ratio 28.3; Bilirubin, Total 0.3 mg/dL (0.2-1.0); Total Protein 6.6 g/dL (6.4-8.2)
[2022-08-10] MEDS: ACCU-CHEK COMFORT CURVE STRIP VI SCH ×4 (07:00→21:12)
[2022-08-10] MEDS: INSULIN LANTUS (GLARGINE) 1 /0.01ml (100units/ml) SC SCH (07:00)
[2022-08-10] MEDS: InsuLIN REG 1unit/0.01ml Soln (100units/ml) SC SCH ×4 (08:09→21:13)
[2022-08-10] MEDS: FLUoxetine HCL 20 MG CAP PO SCH (09:50)
[2022-08-10] MEDS: CARVEDILOL 3.125 MG TAB PO SCH ×2 (09:50→21:12)
[2022-08-10] MEDS: RANOLAZINE ER 500 MG TAB PO SCH ×2 (09:51→21:11)
[2022-08-10] MEDS: ASPirin 81 mg TAB PO SCH (09:51)
[2022-08-10] MEDS: DAPAGLIFLOZIN 5 MG TAB PO SCH (09:51)
[2022-08-10] MEDS: CLOPIDOGREL BISULFATE 75 MG TAB PO SCH (09:51)
[2022-08-10] MEDS: FUROSEMIDE 20 MG/2 ML VIAL IV SCH (09:54)
[2022-08-10] MEDS: PANTOPRAZOLE 40 MG TAB PO SCH (09:56)
[2022-08-10] MEDS: LIDOCAINE 5% TOPICAL PATCH TOP SCH (10:00)
[2022-08-10] MEDS: SENNA 8.6 MG TAB PO SCH (21:11)
[2022-08-10] MEDS: ATORVASTATIN 20 MG TAB PO SCH (21:11)
[2022-08-10] MEDS: GABAPENTIN 300 MG CAP PO SCH (21:12)
[2022-08-11] VITALS (23 sets, daily range): BP systolic 101–128; BP diastolic 44–62
[2022-08-11] MEDS: MORPHINE SULFATE INJ 2 MG/ml SYRG IV PRN ×6 (02:07→22:48)
[2022-08-11 05:30] LABS: Basophils # (auto) 0.1 10 ^3/uL (0-0.2); Basophils % (auto) 0.5 % (0.0-2.0); Eosinophils # (auto) 0.1 10 ^3/uL (0-0.8); Eosinophils % (auto) 0.7 % (0.0-7.0); Hematocrit 36.8 % (36.0-46.0); Hemoglobin 12.5 g/dL (12.2-16.2); Lymphocytes # (auto) 3.6 10 ^3/uL (0.4-5.4); Lymphocytes % (auto) 31.3 % (10.0-50.0); Mean Corpuscular Volume 88.1 fL (80.0-100.0); Monocytes % (auto) 8.3 % (0.0-12.0); Neutrophils # (auto) 6.8 10 ^3/uL (1.6-8.6); Neutrophils % (auto) 59.2 % (37.0-80.0); Red Blood Cells 4.18 10^6/uL (4.0-5.20); Red Cell Distribution Width 13.3 % (11.8-14.3); White Blood Cell 11.5 10^3/uL (4.4-10.8)
[2022-08-11 05:49] LABS: Potassium 3.7 mmol/L (3.5-5.1)
[2022-08-11 05:55] LABS: Albumin 2.8 g/dL (3.4-5.0); BUN/Creatinine Ratio 30.9; Bilirubin, Total 0.3 mg/dL (0.2-1.0)
[2022-08-11] MEDS: INSULIN LANTUS (GLARGINE) 1 /0.01ml (100units/ml) SC SCH (06:19)
[2022-08-11] MEDS: InsuLIN REG 1unit/0.01ml Soln (100units/ml) SC SCH ×4 (06:19→22:00)
[2022-08-11] MEDS: ACCU-CHEK COMFORT CURVE STRIP VI SCH ×4 (07:00→21:47)
[2022-08-11] MEDS: DAPAGLIFLOZIN 5 MG TAB PO SCH (09:49)
[2022-08-11] MEDS: PANTOPRAZOLE 40 MG TAB PO SCH (09:59)
[2022-08-11] MEDS: FLUoxetine HCL 20 MG CAP PO SCH (09:59)
[2022-08-11] MEDS: CARVEDILOL 3.125 MG TAB PO SCH ×2 (09:59→21:47)
[2022-08-11] MEDS: CLOPIDOGREL BISULFATE 75 MG TAB PO SCH (09:59)
[2022-08-11] MEDS: FUROSEMIDE 20 MG/2 ML VIAL IV SCH (09:59)
[2022-08-11] MEDS: RANOLAZINE ER 500 MG TAB PO SCH ×2 (10:00→21:46)
[2022-08-11] MEDS: LIDOCAINE 5% TOPICAL PATCH TOP SCH (10:01)
[2022-08-11] MEDS: ASPirin 81 mg TAB PO SCH (10:01)
[2022-08-11] MEDS ORDERED: BISACODYL 5 MG EC TAB PO ONE (14:30)
[2022-08-11] MEDS ORDERED: POLYETHYLENE GLYCOL 17 GM PWDR PO ONE (14:30)
[2022-08-11 15:00] LABS: Urine Bacteria MANY /hpf (None Seen); Urine Blood 2+ /uL (Negative); Urine Mucus FEW (None Seen); Urine Specific Gravity 1.017 (1.001-1.035); Urine WBC 59 /hpf (0 - 5)
[2022-08-11] MEDS ORDERED: CEFTRIAXONE SODIUM 2 GM in D5W 5% 50 ML IV ONE (16:15)
[2022-08-11] MEDS: SENNA 8.6 MG TAB PO SCH (21:45)
[2022-08-11] MEDS: ATORVASTATIN 20 MG TAB PO SCH (21:47)
[2022-08-11] MEDS: GABAPENTIN 300 MG CAP PO SCH (22:00)
[2022-08-12] VITALS (10 sets, daily range): BP systolic 99–130; BP diastolic 42–68
[2022-08-12] MEDS: MORPHINE SULFATE INJ 2 MG/ml SYRG IV PRN ×4 (02:38→20:21)
[2022-08-12 06:10] LABS: Basophils # (auto) 0 10 ^3/uL (0-0.2); Basophils % (auto) 0.3 % (0.0-2.0); Eosinophils # (auto) 0.1 10 ^3/uL (0-0.8); Eosinophils % (auto) 0.6 % (0.0-7.0); Hematocrit 39.9 % (36.0-46.0); Hemoglobin 13.3 g/dL (12.2-16.2); Lymphocytes # (auto) 1.6 10 ^3/uL (0.4-5.4); Lymphocytes % (auto) 14.6 % (10.0-50.0); Mean Corpuscular Hemoglobin 29.5 pg (28.0-32.0); Mean Corpuscular Hgb Conc. 33.5 g/dL (32.0-36.0); Monocytes # (auto) 0.7 10 ^3/uL (0-1.3); Monocytes % (auto) 6.4 % (0.0-12.0); Neutrophils # (auto) 8.8 10 ^3/uL (1.6-8.6); Neutrophils % (auto) 78.1 % (37.0-80.0); Red Blood Cells 4.53 10^6/uL (4.0-5.20); Red Cell Distribution Width 13.5 % (11.8-14.3); White Blood Cell 11.3 10^3/uL (4.4-10.8)
[2022-08-12 06:31] LABS: Calcium 8.4 mg/dL (8.5-10.1); Potassium 4.1 mmol/L (3.5-5.1)
[2022-08-12 06:34] LABS: BUN/Creatinine Ratio 32.3
[2022-08-12] MEDS: InsuLIN REG 1unit/0.01ml Soln (100units/ml) SC SCH ×4 (07:00→23:07)
[2022-08-12] MEDS: ACCU-CHEK COMFORT CURVE STRIP VI SCH ×4 (07:00→22:00)
[2022-08-12] MEDS: INSULIN LANTUS (GLARGINE) 1 /0.01ml (100units/ml) SC SCH (07:00)
[2022-08-12] MEDS: cefTRIAXone 1GM/50ML D5W 50 ML IV SCH (09:00)
[2022-08-12] MEDS: LIDOCAINE 5% TOPICAL PATCH TOP SCH (09:51)
[2022-08-12] MEDS: ASPirin 81 mg TAB PO SCH (09:51)
[2022-08-12] MEDS: FLUoxetine HCL 20 MG CAP PO SCH (09:52)
[2022-08-12] MEDS: PANTOPRAZOLE 40 MG TAB PO SCH (09:52)
[2022-08-12] MEDS: CARVEDILOL 3.125 MG TAB PO SCH ×2 (09:52→22:15)
[2022-08-12] MEDS: FUROSEMIDE 20 MG/2 ML VIAL IV SCH ×2 (09:53→22:16)
[2022-08-12] MEDS: CLOPIDOGREL BISULFATE 75 MG TAB PO SCH (09:53)
[2022-08-12] MEDS: RANOLAZINE ER 500 MG TAB PO SCH ×2 (10:01→22:14)
[2022-08-12] MEDS ORDERED: METOPROLOL TARTRATE 1MG/1ML-5ML VIAL IV ONE (14:30)
[2022-08-12] MEDS ORDERED: MORPHINE SULFATE INJ 2 MG/ml SYRG IM ONE (14:30)
[2022-08-12 16:05] LABS: BUN/Creatinine Ratio 22.7; Calcium 8.6 mg/dL (8.5-10.1); Magnesium 2.2 mg/dL (1.6-2.6); Potassium 3.1 mmol/L (3.5-5.1)
[2022-08-12] MEDS ORDERED: HEPARIN 1,000 UNITS/ml 1ML VIAL IV ONE (16:45)
[2022-08-12] MEDS ORDERED: POTASSIUM CHL 20 Meq TABLET PO ONE ×3 (16:45→19:45)
[2022-08-12] MEDS ORDERED: POTASSIUM EFFERVESENT TAB 25 MEQ PO ONE (19:45)
[2022-08-12] MEDS: ATORVASTATIN 20 MG TAB PO SCH (22:14)
[2022-08-12] MEDS: SENNA 8.6 MG TAB PO SCH (22:14)
[2022-08-12] MEDS: GABAPENTIN 300 MG CAP PO SCH (22:14)
[2022-08-13] MEDS: MORPHINE SULFATE INJ 2 MG/ml SYRG IV PRN ×5 (01:35→19:56)
[2022-08-13 04:33] VITALS: BP 112/53
[2022-08-13] MEDS: ACCU-CHEK COMFORT CURVE STRIP VI SCH ×4 (06:49→21:27)
[2022-08-13] MEDS: INSULIN LANTUS (GLARGINE) 1 /0.01ml (100units/ml) SC SCH (06:53)
[2022-08-13] MEDS: InsuLIN REG 1unit/0.01ml Soln (100units/ml) SC SCH ×4 (06:54→21:27)
[2022-08-13 07:30] LABS: BUN/Creatinine Ratio 26.7; Calcium 8.6 mg/dL (8.5-10.1); Magnesium 2.4 mg/dL (1.6-2.6); Potassium 4.5 mmol/L (3.5-5.1)
[2022-08-13 09:00] VITALS: BP 102/51
[2022-08-13] MEDS: ASPirin 81 mg TAB PO SCH (09:23)
[2022-08-13] MEDS: FUROSEMIDE 20 MG/2 ML VIAL IV SCH ×2 (09:23→21:44)
[2022-08-13] MEDS: cefTRIAXone 1GM/50ML D5W 50 ML IV SCH (09:23)
[2022-08-13] MEDS: CLOPIDOGREL BISULFATE 75 MG TAB PO SCH (09:24)
[2022-08-13] MEDS: PANTOPRAZOLE 40 MG TAB PO SCH (09:24)
[2022-08-13] MEDS: FLUoxetine HCL 20 MG CAP PO SCH (09:24)
[2022-08-13] MEDS: CARVEDILOL 3.125 MG TAB PO SCH ×2 (09:25→21:45)
[2022-08-13] MEDS: LIDOCAINE 5% TOPICAL PATCH TOP SCH (10:30)
[2022-08-13] MEDS: RANOLAZINE ER 500 MG TAB PO SCH ×2 (10:40→21:44)
[2022-08-13] MEDS ORDERED: BISACODYL 10 MG RECT SUPP PR ONE (11:45)
[2022-08-13] MEDS ORDERED: LACTULOSE 20Gm/30ML SOLN PO ONE (11:45)
[2022-08-13 13:00] VITALS: BP 110/61
[2022-08-13 17:00] VITALS: BP 110/52
[2022-08-13] MEDS: GABAPENTIN 300 MG CAP PO SCH (21:27)
[2022-08-13] MEDS: SENNA 8.6 MG TAB PO SCH (21:44)
[2022-08-13] MEDS: ATORVASTATIN 20 MG TAB PO SCH (21:44)
[2022-08-13 22:00] VITALS: BP 98/49
[2022-08-14] MEDS: MORPHINE SULFATE INJ 2 MG/ml SYRG IV PRN ×3 (03:05→18:00)
[2022-08-14 04:11] LABS: Basophils # (auto) 0 10 ^3/uL (0-0.2); Basophils % (auto) 0.3 % (0.0-2.0); Eosinophils # (auto) 0.2 10 ^3/uL (0-0.8); Eosinophils % (auto) 1.8 % (0.0-7.0); Hematocrit 38.6 % (36.0-46.0); Hemoglobin 13.1 g/dL (12.2-16.2); Lymphocytes # (auto) 3.1 10 ^3/uL (0.4-5.4); Lymphocytes % (auto) 34.7 % (10.0-50.0); Mean Corpuscular Hemoglobin 29.5 pg (28.0-32.0); Mean Corpuscular Hgb Conc. 33.9 g/dL (32.0-36.0); Monocytes # (auto) 0.9 10 ^3/uL (0-1.3); Monocytes % (auto) 10.1 % (0.0-12.0); Neutrophils # (auto) 4.7 10 ^3/uL (1.6-8.6); Neutrophils % (auto) 53.1 % (37.0-80.0); Nucleated Red Blood Cells % 0.1 %; Red Blood Cells 4.44 10^6/uL (4.0-5.20); Red Cell Distribution Width 13.5 % (11.8-14.3); White Blood Cell 8.8 10^3/uL (4.4-10.8)
[2022-08-14 04:35] LABS: BUN/Creatinine Ratio 26.8; Calcium 8.5 mg/dL (8.5-10.1); Potassium 3.9 mmol/L (3.5-5.1)
[2022-08-14 04:49] VITALS: BP 114/56
[2022-08-14] MEDS: ACCU-CHEK COMFORT CURVE STRIP VI SCH ×3 (06:36→16:25)
[2022-08-14] MEDS: InsuLIN REG 1unit/0.01ml Soln (100units/ml) SC SCH ×3 (06:36→17:00)
[2022-08-14] MEDS: INSULIN LANTUS (GLARGINE) 1 /0.01ml (100units/ml) SC SCH (06:37)
[2022-08-14] MEDS: FLUoxetine HCL 20 MG CAP PO SCH (08:59)
[2022-08-14] MEDS: CLOPIDOGREL BISULFATE 75 MG TAB PO SCH (08:59)
[2022-08-14] MEDS: cefTRIAXone 1GM/50ML D5W 50 ML IV SCH (08:59)
[2022-08-14 09:00] VITALS: BP 123/66
[2022-08-14] MEDS: ASPirin 81 mg TAB PO SCH (09:00)
[2022-08-14] MEDS: PANTOPRAZOLE 40 MG TAB PO SCH (09:00)
[2022-08-14] MEDS: FUROSEMIDE 20 MG/2 ML VIAL IV SCH (09:00)
[2022-08-14] MEDS: CARVEDILOL 3.125 MG TAB PO SCH (09:01)
[2022-08-14] MEDS: LIDOCAINE 5% TOPICAL PATCH TOP SCH (09:01)
[2022-08-14] MEDS: RANOLAZINE ER 500 MG TAB PO SCH (10:30)
[2022-08-14] MEDS ORDERED: CLOP75TA70 PO (11:31)
[2022-08-14] MEDS ORDERED: ATOR20TA50 PO (11:31)
[2022-08-14] MEDS ORDERED: RANO500T PO (11:31)
[2022-08-14] MEDS ORDERED: ASPI-325 PO (11:31)
[2022-08-14] MEDS ORDERED: CAR3125T PO (11:31)
[2022-08-14] MEDS ORDERED: FURO1TAB31 PO (11:31)
[2022-08-14] MEDS ORDERED: EMPA1TAB3 PO (11:33)
[2022-08-14 13:00] VITALS: BP 118/49
[2022-08-14 13:21] VITALS: BP 123/66
[2022-08-14 17:00] VITALS: BP 131/65
[2022-08-14 18:00] VITALS: BP 116/83
== END 2022-08-14 18:59 | disposition home health service (06) | DRG 246 ==
LOC: EDBD 10:12 → ER 10:12 → TELE 17:55 → ICU WEST 08-05 15:03 → DOU IN ICU 08-06 17:40 → TELE-WESTW 08-12 10:59
PROVIDERS: ADMIT Registered Nurse; ATTEND Internal Medicine
PROC: 4A023N7 Measurement of Cardiac Sampling and Pressure, Left Heart, Percutaneous Approach (ICD-10-PCS; 2022-08-05)
PROC: B211YZZ Fluoroscopy of Multiple Coronary Arteries using Other Contrast (ICD-10-PCS; 2022-08-05)
PROC: 05HA33Z Insertion of Infusion Device into Left Brachial Vein, Percutaneous Approach (ICD-10-PCS; 2022-08-06)
PROC: B54NZZA Ultrasonography of Left Upper Extremity Veins, Guidance (ICD-10-PCS; 2022-08-06)
PROC: 027036Z Dilation of Coronary Artery, One Artery with Three Drug-eluting Intraluminal Devices, Percutaneous Approach (ICD-10-PCS; principal; 2022-08-09)
PROC: B240ZZ3 Ultrasonography of Single Coronary Artery, Intravascular (ICD-10-PCS; 2022-08-09)
PROC: B41FYZZ Fluoroscopy of Right Lower Extremity Arteries using Other Contrast (ICD-10-PCS; 2022-08-09)
DX: I21.3 ST elevation (STEMI) myocardial infarction of unspecified site (principal); I50.23 Acute on chronic systolic (congestive) heart failure; I13.0 Hypertensive heart and chronic kidney disease with heart failure and stage 1 through stage 4 chronic kidney disease, or unspecified chronic kidney disease; N17.9 Acute kidney failure, unspecified; N30.00 Acute cystitis without hematuria; E11.65 Type 2 diabetes mellitus with hyperglycemia; E66.9 Obesity, unspecified; N18.2 Chronic kidney disease, stage 2 (mild); Z20.822 Contact with and (suspected) exposure to COVID-19; E11.22 Type 2 diabetes mellitus with diabetic chronic kidney disease; G89.29 Other chronic pain; I25.10 Atherosclerotic heart disease of native coronary artery without angina pectoris; K44.9 Diaphragmatic hernia without obstruction or gangrene; J44.9 Chronic obstructive pulmonary disease, unspecified; Z72.0 Tobacco use; Z79.82 Long term (current) use of aspirin; Z82.49 Family history of ischemic heart disease and other diseases of the circulatory system; Z83.3 Family history of diabetes mellitus; Z87.11 Personal history of peptic ulcer disease; Z88.8 Allergy status to other drugs, medicaments and biological substances; Z90.710 Acquired absence of both cervix and uterus; Z68.31 Body mass index [BMI] 31.0-31.9, adult; Z90.49 Acquired absence of other specified parts of digestive tract
CPT/HCPCS: 36415; 71045; 71250; 74176; 75710; 80048; 80053; 80061; 81001; 82306; 82962; 83036; 83735; 83880; 84443; 84484; 85025; 85610; 85730; 86850; 86900; 86901; 87081; 87086; 87088; 87186; 92928; 92929; 92978; 93005; 93306; 93458; 93886; 94640; 96372; 96374; 96375; 97110; 97116; 97163; 97530; 99152; 99153; 99291; C1874; G0378; J0696; J1815; J2250; J2405; J3490; J7060; Q9967

== ENCOUNTER → 2022-12-18 | Outpatient (CLI) | payer MEDICARE ==
[~2022-12-18] VITALS: Ht 160 cm; Wt 73.5 kg
[~2022-12-18] MED LIST changes: +ASPI-325 PO; +ATOR20TA50 PO; +CAR3125T PO; -CEPH-37 PO; +CLOP75TA70 PO; +EMPA1TAB3 PO; +FURO1TAB31 PO; +HYDR-4798 PO; +RANO500T PO
[2022-12-18 12:35] LABS: Basophils # (auto) 0.1 10 ^3/uL (0-0.2); Basophils % (auto) 0.9 % (0.0-2.0); Eosinophils # (auto) 0.1 10 ^3/uL (0-0.8); Hematocrit 44.6 % (36.0-46.0); Hemoglobin 15.4 g/dL (12.2-16.2); Lymphocytes # (auto) 4.1 10 ^3/uL (0.4-5.4); Lymphocytes % (auto) 37.6 % (10.0-50.0); Mean Corpuscular Hemoglobin 30.3 pg (28.0-32.0); Mean Corpuscular Hgb Conc. 34.4 g/dL (32.0-36.0); Mean Corpuscular Volume 87.9 fL (80.0-100.0); Monocytes # (auto) 0.6 10 ^3/uL (0-1.3); Monocytes % (auto) 5.6 % (0.0-12.0); Neutrophils % (auto) 54.9 % (37.0-80.0); Nucleated Red Blood Cells % 0.1 %; Red Blood Cells 5.08 10^6/uL (4.0-5.20); Red Cell Distribution Width 13.4 % (11.8-14.3); White Blood Cell 10.9 10^3/uL (4.4-10.8)
[2022-12-18 12:50] LABS: INR 1.03 (0.9-1.15); Partial Thromboplastin Time 28.9 sec (24.6-33.4)
[2022-12-18 12:51] LABS: Albumin 4.4 g/dL (3.4-5.0); Calcium 9.1 mg/dL (8.5-10.1); Potassium 3.6 mmol/L (3.5-5.1)
[2022-12-18 12:54] LABS: BUN/Creatinine Ratio 11.5; Bilirubin, Total 0.4 mg/dL (0.2-1.0); Total Protein 7.8 g/dL (6.4-8.2)
== END | disposition home or self-care (01) ==
LOC: CATH 10:22 → EDSTATUS 02-09 14:49
PROVIDERS: ATTEND Internal Medicine
DX: U07.1 COVID-19 (principal); I50.9 Heart failure, unspecified; I25.10 Atherosclerotic heart disease of native coronary artery without angina pectoris
CPT/HCPCS: 36415; 80053; 85025; 85610; 85730; U0003

== ENCOUNTER 2023-02-09 07:01 | Day surgery (SDC) | payer MEDICARE ==
[2023-02-06 13:08] LABS: INR 1.03 (0.9-1.15); Partial Thromboplastin Time 28.6 sec (24.6-33.4)
[2023-02-06 13:14] LABS: BUN/Creatinine Ratio 19.1 (10.0-20.0); Calcium 9.3 mg/dL (8.5-10.1); Potassium 3.9 mmol/L (3.5-5.1)
[2023-02-06 13:44] LABS: Basophils # (auto) 0.1 10 ^3/uL (0-0.2); Basophils % (auto) 0.7 % (0.0-2.0); Eosinophils # (auto) 0.1 10 ^3/uL (0-0.8); Eosinophils % (auto) 1.4 % (0.0-7.0); Hematocrit 41.8 % (36.0-46.0); Hemoglobin 14.4 g/dL (12.2-16.2); Lymphocytes # (auto) 3.4 10 ^3/uL (0.4-5.4); Lymphocytes % (auto) 45.2 % (10.0-50.0); Mean Corpuscular Hemoglobin 30.3 pg (28.0-32.0); Mean Corpuscular Hgb Conc. 34.5 g/dL (32.0-36.0); Mean Corpuscular Volume 87.9 fL (80.0-100.0); Monocytes # (auto) 0.4 10 ^3/uL (0-1.3); Monocytes % (auto) 5.2 % (0.0-12.0); Neutrophils # (auto) 3.6 10 ^3/uL (1.6-8.6); Neutrophils % (auto) 47.5 % (37.0-80.0); Nucleated Red Blood Cells % 0.2 %; Red Blood Cells 4.76 10^6/uL (4.0-5.20); Red Cell Distribution Width 14.6 % (11.8-14.3); White Blood Cell 7.6 10^3/uL (4.4-10.8)
[2023-02-09] VITALS (25 sets, daily range): BP systolic 107–175; BP diastolic 45–102
[~2023-02-09] VITALS: Ht 160 cm; Wt 63.5 kg
[~2023-02-09 07:01] MED LIST changes: -ALPR0.25 PO; -DICY10CA55 PO; -GABA300C10 PO; -HYDR-4296 PO; -INSUINJ IJ; -INSUINJ2 SC; -MORP30TA5 PO; -RANO500T PO; +RANO500T3 PO; -SERT50TA PO
[2023-02-09] MEDS ORDERED: LIDOCAINE VISCOUS 2% 15ML UD MT ONE (08:00)
[2023-02-09] MEDS ORDERED: fentaNYL CITRATE 100 MCG/2 ML VL IV ONE (08:00)
[2023-02-09] MEDS ORDERED: diphenhdrAMINE HCL 50 MG/1 ML VL IV ONE ×2 (08:00)
[2023-02-09] MEDS ORDERED: MIDAZOLAM HCL 2MG/2ML 2ml VIAL (1mg/ml) IV ONE (08:26)
[2023-02-09] MEDS ORDERED: methylPREDNISolone SOD SUCC 125 MG/2 ML VL ONE (10:07)
[2023-02-09] MEDS ORDERED: HEPARIN SODIUM (PORCINE) 5000 UNITS/ML 1ML VIAL ONE (10:08)
[2023-02-09] MEDS ORDERED: ANGIOMAX 250 MG VIAL IV ONE (10:08)
[2023-02-09] MEDS ORDERED: SODIUM CHL 0.9% 50 ML ONE (10:08)
[2023-02-09] MEDS ORDERED: fentaNYL CITRATE 100 MCG/2 ML VL ONE (10:08)
[2023-02-09] MEDS ORDERED: FAMOTIDINE (10MG/ML) 2ML VL IV ONE (10:09)
[2023-02-09] MEDS ORDERED: MIDAZOLAM HCL 2MG/2ML 2ml VIAL (1mg/ml) ONE (10:15)
[2023-02-09] MEDS ORDERED: VERAPAMIL 2.5MG/ML INJ 2ML VIAL IV ONE (10:18)
[2023-02-09] MEDS ORDERED: HYDROmorphone HCL 2 MG/ML VL/or syr ONE (10:47)
[2023-02-09] MEDS ORDERED: IODIXANOL 320MG/ML 100ML BTL IV ONE (11:00)
[2023-02-09] MEDS ORDERED: ASPirin 81 mg TAB ONE (11:07)
[2023-02-09] MEDS ORDERED: CLOPIDOGREL 300 MG TAB ONE (11:07)
[2023-02-09] MEDS ORDERED: MORP2INJ4 (11:32)
[2023-02-09] MEDS ORDERED: LIDOCAINE 2%HCL (LOCAL ANESTH.) INJ 20ML MDV IJ ONE (15:17)
[2023-02-09] MEDS ORDERED: HEPARIN IN NS 1000U/500ML (2UNIT/ML) 500 ML BAG/KIT IV ONE (15:17)
== END 2023-02-09 18:25 | disposition home or self-care (01) ==
LOC: CATH 07:01
PROVIDERS: ATTEND Internal Medicine
DX: I25.118 Atherosclerotic heart disease of native coronary artery with other forms of angina pectoris (principal); I08.2 Rheumatic disorders of both aortic and tricuspid valves; I10 Essential (primary) hypertension; Z79.899 Other long term (current) drug therapy; Z98.890 Other specified postprocedural states; Z20.822 Contact with and (suspected) exposure to COVID-19
CPT/HCPCS: 36415; 80048; 85025; 85610; 85730; 93005; 93312; 93458; C1725; C1769; C1874; C1894; C9600; J0583; J1170; J1200; J1644; J2250; J2930; J3010; J3490; Q9967; U0003; 99152; 99153

== ENCOUNTER 2023-04-10 20:43 | Inpatient (IN) | payer MEDICARE ==
[~2023-04-10] VITALS: Ht 160 cm; Wt 69.0 kg
[~2023-04-10 20:43] MED LIST changes: +LOSA25TA15 PO; -LOSA25TA38 PO; +MORP2INJ4
[2023-04-10 21:11] LABS: Basophils # (auto) 0 10 ^3/uL (0-0.2); Basophils % (auto) 0.3 % (0.0-2.0); Eosinophils # (auto) 0.2 10 ^3/uL (0-0.8); Eosinophils % (auto) 2.1 % (0.0-7.0); Hematocrit 37.6 % (36.0-46.0); Lymphocytes # (auto) 3.3 10 ^3/uL (0.4-5.4); Lymphocytes % (auto) 43.9 % (10.0-50.0); Mean Corpuscular Hemoglobin 30.7 pg (28.0-32.0); Mean Corpuscular Hgb Conc. 34.6 g/dL (32.0-36.0); Mean Corpuscular Volume 88.5 fL (80.0-100.0); Monocytes # (auto) 0.5 10 ^3/uL (0-1.3); Monocytes % (auto) 7.3 % (0.0-12.0); Neutrophils # (auto) 3.5 10 ^3/uL (1.6-8.6); Neutrophils % (auto) 46.4 % (37.0-80.0); Nucleated Red Blood Cells % 0.1 %; Red Blood Cells 4.25 10^6/uL (4.0-5.20); Red Cell Distribution Width 13.1 % (11.8-14.3); White Blood Cell 7.5 10^3/uL (4.4-10.8)
[2023-04-10 21:30] LABS: Albumin 3.2 g/dL (3.4-5.0); BUN/Creatinine Ratio 18.5 (10.0-20.0); Magnesium 2.3 mg/dL (1.6-2.6); Potassium 3.8 mmol/L (3.5-5.1)
[2023-04-10 21:32] LABS: Bilirubin, Total 0.3 mg/dL (0.2-1.0); Total Protein 7.5 g/dL (6.4-8.2)
[2023-04-10 21:36] LABS: INR 0.98 (0.9-1.15); Partial Thromboplastin Time 27.8 sec (24.6-33.4)
[2023-04-10] MEDS ORDERED: MORPHINE SULFATE 4 MG/ML SYR/VIAL IV ONE (23:00)
[2023-04-10] MEDS ORDERED: ONDANSETRON HCL 4 MG/2 ML VIAL IV ONE (23:00)
[2023-04-11] MEDS ORDERED: ONDANSETRON HCL 4 MG/2 ML VIAL IV ONE (01:30)
[2023-04-11] MEDS ORDERED: HYDROmorphone HCL 2 MG/ML VL/or syr IV ONE ×3 (01:30→14:00)
[2023-04-11 01:45] LABS: Urine Bacteria MANY /hpf (None Seen); Urine Blood TRACE /uL (Negative); Urine Budding Yeast MANY /hpf (None Seen); Urine Mucus FEW (None Seen); Urine Specific Gravity 1.026 (1.001-1.035); Urine WBC 485 /hpf (0 - 5); Urine WBC Clumps PRESENT /hpf (None Seen)
[2023-04-11] MEDS ORDERED: ACETAMINOPHEN 325 MG TAB PO PRN (04:30)
[2023-04-11] MEDS ORDERED: DOCUSATE SOD 100 MG CAP PO PRN (04:30)
[2023-04-11] MEDS ORDERED: HYDROcodone-ACET 5/325MG TAB PO PRN (04:30)
[2023-04-11] MEDS ORDERED: cefTRIAXone 1GM/50ML D5W 50 ML IV ONE (04:30)
[2023-04-11] MEDS ORDERED: DEXTROSE (50%) 50ML SYRG IV PRN (04:30)
[2023-04-11] MEDS ORDERED: ONDANSETRON HCL 4 MG/2 ML VIAL IV PRN (04:30)
[2023-04-11] MEDS: SODIUM CHLOR 0.9% PF (SALINE LOCK) 10ML VIAL/SYR IV SCH ×3 (05:41→21:56)
[2023-04-11] MEDS ORDERED: NITROGLYCERIN 0.4 MG SL TAB SL PRN (06:15)
[2023-04-11] MEDS ORDERED: MORPHINE SULFATE INJ 2 MG/ml SYRG IV PRN (06:15)
[2023-04-11 06:37] LABS: Basophils # (auto) 0 10 ^3/uL (0-0.2); Basophils % (auto) 0.4 % (0.0-2.0); Eosinophils # (auto) 0.1 10 ^3/uL (0-0.8); Eosinophils % (auto) 1.8 % (0.0-7.0); Hematocrit 37.9 % (36.0-46.0); Hemoglobin 13.1 g/dL (12.2-16.2); Lymphocytes # (auto) 2.6 10 ^3/uL (0.4-5.4); Lymphocytes % (auto) 37.7 % (10.0-50.0); Mean Corpuscular Hemoglobin 31.2 pg (28.0-32.0); Mean Corpuscular Hgb Conc. 34.7 g/dL (32.0-36.0); Mean Corpuscular Volume 89.9 fL (80.0-100.0); Monocytes # (auto) 0.5 10 ^3/uL (0-1.3); Neutrophils # (auto) 3.5 10 ^3/uL (1.6-8.6); Neutrophils % (auto) 52.1 % (37.0-80.0); Nucleated Red Blood Cells % 0.1 %; Red Blood Cells 4.21 10^6/uL (4.0-5.20); Red Cell Distribution Width 12.9 % (11.8-14.3); White Blood Cell 6.8 10^3/uL (4.4-10.8)
[2023-04-11] MEDS: ACCU-CHEK COMFORT CURVE STRIP VI SCH ×4 (06:51→21:56)
[2023-04-11] MEDS: InsuLIN REG 1unit/0.01ml Soln (100units/ml) SC SCH ×4 (06:53→22:01)
[2023-04-11 07:03] LABS: Albumin 3.3 g/dL (3.4-5.0); Calcium 8.6 mg/dL (8.5-10.1); Potassium 4.2 mmol/L (3.5-5.1)
[2023-04-11 07:06] LABS: BUN/Creatinine Ratio 15.4 (10.0-20.0); Bilirubin, Total 0.3 mg/dL (0.2-1.0); Total Protein 7.4 g/dL (6.4-8.2)
[2023-04-11] MEDS: ASPirin 81 mg TAB PO SCH (09:47)
[2023-04-11] MEDS: FUROSEMIDE 40 MG/4 ML VIAL IV SCH (09:48)
[2023-04-11] MEDS: CARVEDILOL 3.125 MG TAB PO SCH ×3 (09:48→21:56)
[2023-04-11] MEDS ORDERED: CLOPIDOGREL BISULFATE 75 MG TAB PO ONE (13:30)
[2023-04-11 13:54] LABS: Cholesterol 102 mg/dL (< 200); Triglycerides 82 mg/dL (< 150)
[2023-04-11 13:57] LABS: HDL Cholesterol 40 mg/dL (40-59); LDL Cholesterol 55 mg/dL (< 100)
[2023-04-11] MEDS: HYDROmorphone HCL 2 MG/ML VL/or syr IV PRN ×2 (13:59→22:08)
[2023-04-11 17:03] VITALS: BP 124/51
[2023-04-11 17:57] VITALS: BP 124/51
[2023-04-11 20:00] VITALS: BP 131/57
[2023-04-11] MEDS: ATORVASTATIN 20 MG TAB PO SCH (21:55)
[2023-04-11 22:00] VITALS: BP 131/57
[2023-04-12] VITALS (7 sets, daily range): BP systolic 115–133; BP diastolic 52–70
[2023-04-12] MEDS: MORPHINE SULFATE INJ 2 MG/ml SYRG IV PRN ×2 (01:02→21:35)
[2023-04-12] MEDS: HYDROmorphone HCL 2 MG/ML VL/or syr IV PRN ×3 (04:58→15:40)
[2023-04-12] MEDS: SODIUM CHLOR 0.9% PF (SALINE LOCK) 10ML VIAL/SYR IV SCH ×3 (04:58→22:00)
[2023-04-12] MEDS: InsuLIN REG 1unit/0.01ml Soln (100units/ml) SC SCH ×4 (06:07→21:55)
[2023-04-12] MEDS: ACCU-CHEK COMFORT CURVE STRIP VI SCH ×4 (06:12→21:35)
[2023-04-12 06:40] LABS: Basophils # (auto) 0 10 ^3/uL (0-0.2); Basophils % (auto) 0.4 % (0.0-2.0); Eosinophils # (auto) 0.1 10 ^3/uL (0-0.8); Eosinophils % (auto) 1.3 % (0.0-7.0); Hematocrit 39.5 % (36.0-46.0); Hemoglobin 13.2 g/dL (12.2-16.2); Lymphocytes # (auto) 2.8 10 ^3/uL (0.4-5.4); Lymphocytes % (auto) 36.8 % (10.0-50.0); Mean Corpuscular Hgb Conc. 33.3 g/dL (32.0-36.0); Mean Corpuscular Volume 89.9 fL (80.0-100.0); Monocytes # (auto) 0.5 10 ^3/uL (0-1.3); Monocytes % (auto) 7.1 % (0.0-12.0); Neutrophils # (auto) 4.2 10 ^3/uL (1.6-8.6); Neutrophils % (auto) 54.4 % (37.0-80.0); Nucleated Red Blood Cells % 0.1 %; Red Blood Cells 4.39 10^6/uL (4.0-5.20); Red Cell Distribution Width 13.2 % (11.8-14.3); White Blood Cell 7.7 10^3/uL (4.4-10.8)
[2023-04-12 07:12] LABS: Albumin 3.1 g/dL (3.4-5.0); Calcium 8.6 mg/dL (8.5-10.1); Potassium 3.9 mmol/L (3.5-5.1)
[2023-04-12 07:16] LABS: Bilirubin, Total 0.2 mg/dL (0.2-1.0); Total Protein 7.1 g/dL (6.4-8.2)
[2023-04-12] MEDS ORDERED: CLOPIDOGREL BISULFATE 75 MG TAB PO SCH (10:00)
[2023-04-12] MEDS: cefTRIAXone 1GM/50ML D5W 50 ML IV SCH (10:10)
[2023-04-12] MEDS: CARVEDILOL 3.125 MG TAB PO SCH ×2 (10:23→21:34)
[2023-04-12] MEDS: FUROSEMIDE 40 MG/4 ML VIAL IV SCH (10:23)
[2023-04-12] MEDS: ASPirin 81 mg TAB PO SCH (10:23)
[2023-04-12] MEDS: ATORVASTATIN 20 MG TAB PO SCH (21:32)
[2023-04-13] VITALS (7 sets, daily range): BP systolic 110–127; BP diastolic 41–67
[2023-04-13] MEDS: HYDROmorphone HCL 2 MG/ML VL/or syr IV PRN ×3 (04:26→22:08)
[2023-04-13] MEDS: SODIUM CHLOR 0.9% PF (SALINE LOCK) 10ML VIAL/SYR IV SCH ×3 (06:02→22:07)
[2023-04-13] MEDS: ACCU-CHEK COMFORT CURVE STRIP VI SCH ×4 (06:03→22:07)
[2023-04-13] MEDS: InsuLIN REG 1unit/0.01ml Soln (100units/ml) SC SCH ×4 (06:07→22:17)
[2023-04-13] MEDS ORDERED: PANTOPRAZOLE 40 MG TAB PO SCH (10:00)
[2023-04-13] MEDS: cefTRIAXone 1GM/50ML D5W 50 ML IV SCH (10:53)
[2023-04-13] MEDS: FUROSEMIDE 40 MG/4 ML VIAL IV SCH (10:53)
[2023-04-13] MEDS: CLOPIDOGREL BISULFATE 75 MG TAB PO SCH (10:54)
[2023-04-13] MEDS: ASPirin 81 mg TAB PO SCH (10:54)
[2023-04-13] MEDS: CARVEDILOL 3.125 MG TAB PO SCH ×2 (10:55→22:07)
[2023-04-13] MEDS: MORPHINE SULFATE INJ 2 MG/ml SYRG IV PRN (10:55)
[2023-04-13] MEDS: ATORVASTATIN 20 MG TAB PO SCH (22:06)
[2023-04-14 05:00] VITALS: BP 123/79
[2023-04-14] MEDS: HYDROmorphone HCL 2 MG/ML VL/or syr IV PRN ×3 (05:00→14:11)
[2023-04-14 06:01] LABS: BUN/Creatinine Ratio 32.5 (10.0-20.0); Calcium 9.2 mg/dL (8.5-10.1); Potassium 3.1 mmol/L (3.5-5.1)
[2023-04-14] MEDS: ACCU-CHEK COMFORT CURVE STRIP VI SCH ×3 (06:14→17:00)
[2023-04-14] MEDS: SODIUM CHLOR 0.9% PF (SALINE LOCK) 10ML VIAL/SYR IV SCH ×2 (06:14→13:55)
[2023-04-14] MEDS: InsuLIN REG 1unit/0.01ml Soln (100units/ml) SC SCH ×3 (06:21→17:00)
[2023-04-14 08:00] VITALS: BP 121/52
[2023-04-14] MEDS ORDERED: POTASSIUM CHL 20 Meq TABLET PO ONE (08:45)
[2023-04-14 09:00] VITALS: BP 115/54
[2023-04-14] MEDS: cefTRIAXone 1GM/50ML D5W 50 ML IV SCH (09:12)
[2023-04-14] MEDS: FUROSEMIDE 40 MG/4 ML VIAL IV SCH (09:14)
[2023-04-14] MEDS: CLOPIDOGREL BISULFATE 75 MG TAB PO SCH (09:14)
[2023-04-14] MEDS: ASPirin 81 mg TAB PO SCH (09:14)
[2023-04-14] MEDS: CARVEDILOL 3.125 MG TAB PO SCH (09:15)
[2023-04-14 13:00] VITALS: BP 114/58
[2023-04-14] MEDS ORDERED: CEPH-510 PO (14:49)
[2023-04-14 16:38] VITALS: BP 110/50
== END 2023-04-14 18:48 | disposition home or self-care (01) | DRG 291 ==
LOC: EDBD 20:43 → ER 20:43 → TELE 04-11 06:05 → TELE-WESTW 04-11 16:59
PROVIDERS: ADMIT Nurse Practitioner Family; ATTEND Internal Medicine
DX: I13.0 Hypertensive heart and chronic kidney disease with heart failure and stage 1 through stage 4 chronic kidney disease, or unspecified chronic kidney disease (principal); I50.23 Acute on chronic systolic (congestive) heart failure; J96.20 Acute and chronic respiratory failure, unspecified whether with hypoxia or hypercapnia; E44.0 Moderate protein-calorie malnutrition; N30.00 Acute cystitis without hematuria; E11.65 Type 2 diabetes mellitus with hyperglycemia; I25.10 Atherosclerotic heart disease of native coronary artery without angina pectoris; J44.9 Chronic obstructive pulmonary disease, unspecified; F41.9 Anxiety disorder, unspecified; F32.A Depression, unspecified; G89.29 Other chronic pain; I25.5 Ischemic cardiomyopathy; E11.22 Type 2 diabetes mellitus with diabetic chronic kidney disease; N18.9 Chronic kidney disease, unspecified; I25.2 Old myocardial infarction; Z87.11 Personal history of peptic ulcer disease; Z90.710 Acquired absence of both cervix and uterus; Z90.49 Acquired absence of other specified parts of digestive tract; Z91.041 Radiographic dye allergy status; Z82.49 Family history of ischemic heart disease and other diseases of the circulatory system; Z83.3 Family history of diabetes mellitus; Z68.26 Body mass index [BMI] 26.0-26.9, adult; Z98.61 Coronary angioplasty status
CPT/HCPCS: 36415; 71045; 74018; 80048; 80053; 80061; 81001; 82607; 82962; 83036; 83735; 83880; 84443; 84484; 85025; 85610; 85730; 87086; 93005; 93306; 96365; 96375; 96376; G0378; J0696; J1815; J2405

== ENCOUNTER 2023-12-12 06:50 | Inpatient (IN) | payer MEDICARE ==
[~2023-12-12] VITALS: Ht 167.6 cm; Wt 60.3 kg
[~2023-12-12 06:50] MED LIST changes: +CEPH-510 PO
[2023-12-12] MEDS: ONDANSETRON HCL 4 MG/2 ML VIAL IV ONE ×2 (08:30→11:10)
[2023-12-12 08:34] LABS: Basophils # (auto) 0 10 ^3/uL (0-0.2); Basophils % (auto) 0.2 % (0.0-2.0); Eosinophils # (auto) 0.1 10 ^3/uL (0-0.8); Eosinophils % (auto) 0.5 % (0.0-7.0); Hematocrit 41.6 % (36.0-46.0); Lymphocytes # (auto) 1.8 10 ^3/uL (0.4-5.4); Lymphocytes % (auto) 16.5 % (10.0-50.0); Mean Corpuscular Hemoglobin 30.2 pg (28.0-32.0); Mean Corpuscular Hgb Conc. 33.7 g/dL (32.0-36.0); Mean Corpuscular Volume 89.7 fL (80.0-100.0); Monocytes # (auto) 0.6 10 ^3/uL (0-1.3); Monocytes % (auto) 5.7 % (0.0-12.0); Neutrophils # (auto) 8.3 10 ^3/uL (1.6-8.6); Neutrophils % (auto) 77.1 % (37.0-80.0); Nucleated Red Blood Cells % 0.1 %; Red Blood Cells 4.64 10^6/uL (4.0-5.20); Red Cell Distribution Width 13.6 % (11.8-14.3); White Blood Cell 10.8 10^3/uL (4.4-10.8)
[2023-12-12] MEDS: MORPHINE SULFATE 4 MG/ML SYR/VIAL IV ONE ×2 (08:34→11:11)
[2023-12-12] MEDS: SODIUM CHLORIDE 0.9% 500 ML IVB ONE (08:34)
[2023-12-12 08:35] VITALS: PULSE 69; RESP 15; O2SAT 99
[2023-12-12 08:47] LABS: INR 1.02 (0.9-1.15); Partial Thromboplastin Time 28.8 SEC (24.5-34.5); Prothrombin Time 10.7 sec (9.3-11.8)
[2023-12-12 08:52] LABS: Alanine Aminotransferase 23 U/L (7-40); Albumin 4.6 g/dL (3.2-4.8); Alkaline Phosphatase 94 U/L (46-116); Anion Gap 8 (5-15); Aspartate Aminotransferase 25 U/L (13-40); BUN/Creatinine Ratio 13.8 (10.0-20.0); Bilirubin, Total 0.4 mg/dL (0.2-1.0); Blood Urea Nitrogen 12 mg/dL (9-23); Carbon Dioxide 23 mmol/L (20-30); Chloride 104 mmol/L (98-107); Glucose 259 mg/dL (74-106); Potassium 4.1 mmol/L (3.5-5.1); Sodium 135 mmol/L (136-145); Total Protein 7.2 g/dL (5.7-8.2)
[2023-12-12 09:08] LABS: Lipase 33 U/L (12-53); Magnesium 2.1 mg/dL (1.6-2.6)
[2023-12-12] MEDS: BENZOCAINE (DENTAL) 20 % SPRAY 60ML MT ONE (12:24)
[2023-12-12] MEDS ORDERED: DEXTROSE (50%) 50ML SYRG IV PRN (14:45)
[2023-12-12 15:13] LABS: Urine Bacteria MOD /hpf (None Seen); Urine Blood 1+ /uL (Negative); Urine Budding Yeast MODERATE /hpf (None Seen); Urine Clarity HAZY (Clear); Urine Color Colorless (Yellow); Urine Protein, UAD TRACE (Negative); Urine Specific Gravity 1.022 (1.001-1.035); Urine Urobilinogen Normal (Negative); Urine WBC 179 /hpf (0 - 5); Urine pH 6.5 (5.0-8.0)
[2023-12-12] MEDS: HYDROmorphone HCL 2 MG/ML VL/or syr IV PRN ×2 (15:46→23:43)
[2023-12-12] MEDS: ONDANSETRON HCL 4 MG/2 ML VIAL IV PRN (15:46)
[2023-12-12] MEDS: METHYLNALTREXONE BROMIDE 12 MG/0.6 ML VIAL SC SCH (17:27)
[2023-12-12] MEDS: ACCU-CHEK COMFORT CURVE STRIP VI SCH (18:11)
[2023-12-12] MEDS: InsuLIN REG 1unit/0.01ml Soln (100units/ml) SC SCH (18:16)
[2023-12-12 20:00] VITALS: PULSE 81; RESP 13; O2SAT 98
[2023-12-12] MEDS: SODIUM CHLOR 0.9% PF (SALINE LOCK) 10ML VIAL/SYR IV SCH (22:29)
[2023-12-12 23:00] VITALS: BP 180/75; PULSE 74; RESP 18; TEMP 98; O2SAT 94
[2023-12-12] MEDS: CARVEDILOL 3.125 MG TAB PO SCH (23:42)
[2023-12-12] MEDS: ATORVASTATIN 20 MG TAB PO SCH (23:43)
[2023-12-13] VITALS (8 sets, daily range): BP systolic 135–180; BP diastolic 67–81; PULSE 73–95; RESP 17–20; TEMP 76–98.6; O2SAT 94–98
[2023-12-13] MEDS ORDERED: DEXTROSE (50%) 50ML SYRG IV SCH
[2023-12-13] MEDS: InsuLIN REG 1unit/0.01ml Soln (100units/ml) SC SCH (00:40)
[2023-12-13] MEDS: ACCU-CHEK COMFORT CURVE STRIP VI SCH (00:40)
[2023-12-13] MEDS: AMINO ACID INFUSION IN D10W 1,000 ML IV NR (01:08)
[2023-12-13 06:05] LABS: Basophils # (auto) 0 10 ^3/uL (0-0.2); Basophils % (auto) 0.1 % (0.0-2.0); Eosinophils # (auto) 0 10 ^3/uL (0-0.8); Hematocrit 46.4 % (36.0-46.0); Hemoglobin 15.2 g/dL (12.2-16.2); Lymphocytes # (auto) 2.1 10 ^3/uL (0.4-5.4); Lymphocytes % (auto) 14.7 % (10.0-50.0); Mean Corpuscular Hemoglobin 29.5 pg (28.0-32.0); Mean Corpuscular Hgb Conc. 32.9 g/dL (32.0-36.0); Mean Corpuscular Volume 89.7 fL (80.0-100.0); Monocytes # (auto) 0.8 10 ^3/uL (0-1.3); Neutrophils # (auto) 11.1 10 ^3/uL (1.6-8.6); Neutrophils % (auto) 79.2 % (37.0-80.0); Nucleated Red Blood Cells % 0.1 %; Red Blood Cells 5.17 10^6/uL (4.0-5.20); Red Cell Distribution Width 13.2 % (11.8-14.3)
[2023-12-13 06:21] LABS: Alanine Aminotransferase 30 U/L (7-40); Albumin 4.9 g/dL (3.2-4.8); Alkaline Phosphatase 90 U/L (46-116); Anion Gap 10 (5-15); Aspartate Aminotransferase 26 U/L (13-40); BUN/Creatinine Ratio 12.9 (10.0-20.0); Bilirubin, Total 0.5 mg/dL (0.2-1.0); Blood Urea Nitrogen 11 mg/dL (9-23); Carbon Dioxide 22 mmol/L (20-30); Chloride 106 mmol/L (98-107); Glucose 187 mg/dL (74-106); Phosphorus 3.8 mg/dL (2.4-5.1); Potassium 3.6 mmol/L (3.5-5.1); Sodium 138 mmol/L (136-145); Total Protein 7.8 g/dL (5.7-8.2); Triglycerides 77 mg/dL (< 150)
[2023-12-13] MEDS: FUROSEMIDE 40 MG TAB PO SCH (06:45)
[2023-12-13 07:12] LABS: Magnesium 2.1 mg/dL (1.6-2.6)
[2023-12-13] MEDS: RANOLAZINE ER 500 MG TAB PO SCH (10:00)
[2023-12-13] MEDS: ASPirin-EC 81 mg tab PO SCH (10:00)
[2023-12-13] MEDS: LOSARTAN POTASSIUM 50 MG TAB PO SCH (10:00)
[2023-12-13] MEDS ORDERED: CLOPIDOGREL BISULFATE 75 MG TAB PO SCH (10:00)
[2023-12-13] MEDS: cefTRIAXone 1GM/50ML D5W 50 ML IV SCH (10:43)
[2023-12-13] MEDS: PANTOPRAZOLE 40 MG/10 ML VIAL INJ IV SCH (11:43)
[2023-12-13] MEDS: LIDOCAINE 1% (LOCAL ANESTH.) PF 5ml SDV ID ONE (15:22)
[2023-12-13] MEDS: POTASSIUM CHL 20MEQ/100ML 100 ML IV ONE (16:52)
[2023-12-13] MEDS: metroNIDAZOLE 500MG/100ML 100 ML IV SCH (16:52)
[2023-12-13] MEDS: POTASSIUM ACETATE IV NR (20:26)
[2023-12-13] MEDS: SODIUM CHLORIDE IV NR (20:26)
[2023-12-13] MEDS: [UNRECOGNIZED DRUG - OTHER] IV NR (20:26)
[2023-12-13] MEDS: FAT EMULSION IV NR (20:26)
[2023-12-13] MEDS: SODIUM CHLOR 0.9% PF (SALINE LOCK) 10ML VIAL/SYR IV SCH (21:34)
[2023-12-14] VITALS (7 sets, daily range): BP systolic 147–185; BP diastolic 76–94; PULSE 91–115; RESP 16–20; TEMP 97.6–98.8; O2SAT 96–99
[2023-12-14 05:32] LABS: Basophils # (auto) 0 10 ^3/uL (0-0.2); Basophils % (auto) 0.1 % (0.0-2.0); Eosinophils # (auto) 0 10 ^3/uL (0-0.8); Hematocrit 47.8 % (36.0-46.0); Hemoglobin 15.7 g/dL (12.2-16.2); Lymphocytes # (auto) 2.3 10 ^3/uL (0.4-5.4); Lymphocytes % (auto) 15.6 % (10.0-50.0); Mean Corpuscular Hemoglobin 29.8 pg (28.0-32.0); Mean Corpuscular Hgb Conc. 32.9 g/dL (32.0-36.0); Mean Corpuscular Volume 90.7 fL (80.0-100.0); Monocytes # (auto) 1.1 10 ^3/uL (0-1.3); Monocytes % (auto) 7.6 % (0.0-12.0); Neutrophils # (auto) 11.3 10 ^3/uL (1.6-8.6); Neutrophils % (auto) 76.7 % (37.0-80.0); Nucleated Red Blood Cells % 0.1 %; Red Blood Cells 5.28 10^6/uL (4.0-5.20); Red Cell Distribution Width 13.4 % (11.8-14.3); White Blood Cell 14.8 10^3/uL (4.4-10.8)
[2023-12-14 05:50] LABS: Alanine Aminotransferase 19 U/L (7-40); Albumin 4.7 g/dL (3.2-4.8); Alkaline Phosphatase 84 U/L (46-116); Anion Gap 9 (5-15); Aspartate Aminotransferase 19 U/L (13-40); BUN/Creatinine Ratio 23.7 (10.0-20.0); Blood Urea Nitrogen 18 mg/dL (9-23); Calcium 9.5 mg/dL (8.7-10.4); Carbon Dioxide 24 mmol/L (20-30); Chloride 103 mmol/L (98-107); Glucose 170 mg/dL (74-106); Magnesium 2.2 mg/dL (1.6-2.6); Potassium 3.6 mmol/L (3.5-5.1); Sodium 136 mmol/L (136-145)
[2023-12-14 05:51] LABS: Bilirubin, Total 0.6 mg/dL (0.2-1.0); Phosphorus 2.7 mg/dL (2.4-5.1)
[2023-12-14 05:52] LABS: Total Protein 7.4 g/dL (5.7-8.2)
[2023-12-14] MEDS: MORPHINE SULFATE 4 MG/ML SYR/VIAL IV PRN (10:35)
[2023-12-14] MEDS ORDERED: LOSA50TA46 PO (13:29)
[2023-12-14] MEDS ORDERED: PANT40TA2 PO (13:31)
[2023-12-14] MEDS ORDERED: VERI2.5T PO (13:33)
[2023-12-14] MEDS: hydrALAZINE HCL 20 MG/ML VL IV PRN (17:25)
[2023-12-14] MEDS: TPN PER PHARMACY IV NR (20:36)
[2023-12-15] VITALS (15 sets, daily range): BP systolic 123–182; BP diastolic 63–91; PULSE 97–126; RESP 16–22; TEMP 97.1–98.6; O2SAT 94–100
[2023-12-15] MEDS ORDERED: fentaNYL CITRATE 100 MCG/2 ML VL ONE ×2 (06:58→09:00)
[2023-12-15 07:07] LABS: Alanine Aminotransferase 15 U/L (7-40); Albumin 4.4 g/dL (3.2-4.8); Alkaline Phosphatase 79 U/L (46-116); Anion Gap 6 (5-15); Aspartate Aminotransferase 17 U/L (13-40); BUN/Creatinine Ratio 29.6 (10.0-20.0); Blood Urea Nitrogen 24 mg/dL (9-23); Calcium 9.4 mg/dL (8.7-10.4); Carbon Dioxide 25 mmol/L (20-30); Chloride 104 mmol/L (98-107); Glucose 215 mg/dL (74-106); Magnesium 2.1 mg/dL (1.6-2.6); Potassium 3.3 mmol/L (3.5-5.1); Sodium 135 mmol/L (136-145)
[2023-12-15 07:08] LABS: Bilirubin, Total 0.6 mg/dL (0.2-1.0)
[2023-12-15] MEDS ORDERED: ONDANSETRON HCL 4 MG/2 ML VIAL IV PRN (07:15)
[2023-12-15] MEDS ORDERED: MEPERIDINE HCL (25 MG/ML) 1ML VIAL IV PRN (07:15)
[2023-12-15] MEDS ORDERED: ROCURONIUM 10MG/ML 10ML VIAL IV ONE (07:39)
[2023-12-15] MEDS ORDERED: PHENYLEPHRINE HCL 10 MG/ML VL ONE (07:43)
[2023-12-15] MEDS ORDERED: MEPERIDINE HCL (25 MG/ML) 1ML VIAL ONE ×2 (07:49→09:00)
[2023-12-15] MEDS ORDERED: SUGAMMADEX 200mg/2ml Vial (100MG/ML) IV ONE (09:07)
[2023-12-15] MEDS: ASPirin 300 MG RECTAL SUPP PR SCH (10:00)
[2023-12-15] MEDS: LABETALOL HCL 5 MG/ML 4ML SYRINGE IV PRN ×2 (10:12→12:28)
[2023-12-15] MEDS: hydrALAZINE HCL 20 MG/ML VL IV PRN (11:05)
[2023-12-15] MEDS: HYDROmorphone HCL 2 MG/ML VL/or syr IV PRN ×2 (13:20→18:42)
[2023-12-15] MEDS: POTASSIUM CHL 20MEQ/100ML 100 ML IV SCH (16:32)
[2023-12-15] MEDS: TPN PER PHARMACY IV NR (21:02)
[2023-12-16] VITALS (42 sets, daily range): BP systolic 143–181; BP diastolic 70–95; PULSE 99–134; RESP 13–26; TEMP 97–98.3; O2SAT 95–100
[2023-12-16 04:52] LABS: Alanine Aminotransferase 26 U/L (7-40); Albumin 4.3 g/dL (3.2-4.8); Alkaline Phosphatase 72 U/L (46-116); Anion Gap 9 (5-15); Aspartate Aminotransferase 31 U/L (13-40); BUN/Creatinine Ratio 18.9 (10.0-20.0); Bilirubin, Total 0.7 mg/dL (0.2-1.0); Blood Urea Nitrogen 14 mg/dL (9-23); Calcium 9.3 mg/dL (8.7-10.4); Carbon Dioxide 24 mmol/L (20-30); Chloride 109 mmol/L (98-107); Glucose 222 mg/dL (74-106); Magnesium 2.2 mg/dL (1.6-2.6); Phosphorus 1.4 mg/dL (2.4-5.1); Potassium 3.3 mmol/L (3.5-5.1); Sodium 142 mmol/L (136-145); Total Protein 6.9 g/dL (5.7-8.2)
[2023-12-16] MEDS: POTASSIUM PHOSPHATE 44 MEQ in D5W 5% 250 ML IV ONE (09:43)
[2023-12-16] MEDS: HYDROmorphone HCL 2 MG/ML VL/or syr IV PRN (13:34)
[2023-12-16] MEDS: ENOXAPARIN SOD 40 MG/0.4 ML SYRINGE SC ONE (18:03)
[2023-12-16] MEDS: METOPROLOL TARTRATE 1MG/1ML-5ML VIAL IV SCH (18:03)
[2023-12-16] MEDS: TPN PER PHARMACY IV NR (20:28)
[2023-12-17] VITALS (25 sets, daily range): BP systolic 143–174; BP diastolic 63–84; PULSE 105–135; RESP 12–37; TEMP 97.9–99.1; O2SAT 90–100
[2023-12-17 05:26] LABS: Alanine Aminotransferase 18 U/L (7-40); Albumin 4.1 g/dL (3.2-4.8); Alkaline Phosphatase 70 U/L (46-116); Anion Gap 8 (5-15); Aspartate Aminotransferase 19 U/L (13-40); BUN/Creatinine Ratio 28.2 (10.0-20.0); Blood Urea Nitrogen 20 mg/dL (9-23); Calcium 9.1 mg/dL (8.7-10.4); Carbon Dioxide 25 mmol/L (20-30); Chloride 114 mmol/L (98-107); Glucose 185 mg/dL (74-106); Magnesium 2.3 mg/dL (1.6-2.6); Potassium 3.5 mmol/L (3.5-5.1)
[2023-12-17 05:27] LABS: Bilirubin, Total 0.4 mg/dL (0.2-1.0); Total Protein 6.6 g/dL (5.7-8.2)
[2023-12-17 05:30] LABS: Sodium 147 mmol/L (136-145)
[2023-12-17] MEDS ORDERED: ASPirin 300 MG RECTAL SUPP PR SCH (10:00)
[2023-12-17] MEDS: ENOXAPARIN SOD 40 MG/0.4 ML SYRINGE SC SCH (10:03)
[2023-12-17] MEDS: POTASSIUM PHOSPHATE 44 MEQ in D5W 5% 250 ML IV ONE (18:41)
[2023-12-17] MEDS: TPN PER PHARMACY IV NR (20:19)
[2023-12-18] VITALS (15 sets, daily range): BP systolic 127–170; BP diastolic 60–89; PULSE 89–128; RESP 12–21; TEMP 97–98.8; O2SAT 94–99
[2023-12-18 07:04] LABS: Alanine Aminotransferase 53 U/L (7-40); Alkaline Phosphatase 85 U/L (46-116); Anion Gap 10 (5-15); Aspartate Aminotransferase 70 U/L (13-40); BUN/Creatinine Ratio 31.3 (10.0-20.0); Blood Urea Nitrogen 21 mg/dL (9-23); Carbon Dioxide 24 mmol/L (20-30); Chloride 112 mmol/L (98-107); Glucose 173 mg/dL (74-106); Magnesium 2.4 mg/dL (1.6-2.6); Potassium 3.9 mmol/L (3.5-5.1); Sodium 146 mmol/L (136-145)
[2023-12-18 07:05] LABS: Bilirubin, Total 0.7 mg/dL (0.2-1.0); Phosphorus 3.7 mg/dL (2.4-5.1); Total Protein 6.4 g/dL (5.7-8.2)
[2023-12-18] MEDS: ASPirin 300 MG RECTAL SUPP PR SCH (10:00)
[2023-12-18] MEDS: METOPROLOL TARTRATE 50 MG TAB PO ONE (11:00)
[2023-12-18] MEDS: TPN PER PHARMACY IV NR (20:01)
[2023-12-18] MEDS: DOCUSATE SOD 100 MG CAP PO PRN (21:17)
[2023-12-18] MEDS: METOPROLOL TARTRATE 50 MG TAB PO SCH (21:17)
[2023-12-19] VITALS (24 sets, daily range): BP systolic 101–167; BP diastolic 59–108; PULSE 85–111; RESP 13–20; TEMP 97.7–99.8; O2SAT 96–100
[2023-12-19 05:43] LABS: Alanine Aminotransferase 93 U/L (7-40); Albumin 3.8 g/dL (3.2-4.8); Alkaline Phosphatase 86 U/L (46-116); Anion Gap 6 (5-15); Aspartate Aminotransferase 83 U/L (13-40); BUN/Creatinine Ratio 38.7 (10.0-20.0); Blood Urea Nitrogen 24 mg/dL (9-23); Calcium 8.7 mg/dL (8.7-10.4); Carbon Dioxide 24 mmol/L (20-30); Chloride 111 mmol/L (98-107); Glucose 158 mg/dL (74-106); Magnesium 2.3 mg/dL (1.6-2.6); Potassium 4.6 mmol/L (3.5-5.1); Sodium 141 mmol/L (136-145)
[2023-12-19 05:44] LABS: Bilirubin, Total 0.9 mg/dL (0.2-1.0); Phosphorus 3.1 mg/dL (2.4-5.1); Total Protein 6.2 g/dL (5.7-8.2)
[2023-12-19 08:22] LABS: Basophils # (auto) 0.1 10 ^3/uL (0-0.2); Basophils % (auto) 0.5 % (0.0-2.0); Eosinophils # (auto) 0.2 10 ^3/uL (0-0.8); Eosinophils % (auto) 1.1 % (0.0-7.0); Hematocrit 43.7 % (36.0-46.0); Hemoglobin 13.8 g/dL (12.2-16.2); Lymphocytes # (auto) 2.6 10 ^3/uL (0.4-5.4); Lymphocytes % (auto) 17.7 % (10.0-50.0); Mean Corpuscular Hemoglobin 29.5 pg (28.0-32.0); Mean Corpuscular Hgb Conc. 31.7 g/dL (32.0-36.0); Mean Corpuscular Volume 93.2 fL (80.0-100.0); Monocytes % (auto) 6.9 % (0.0-12.0); Neutrophils # (auto) 10.8 10 ^3/uL (1.6-8.6); Neutrophils % (auto) 73.8 % (37.0-80.0); Nucleated Red Blood Cells % 0.1 %; Red Blood Cells 4.69 10^6/uL (4.0-5.20); Red Cell Distribution Width 13.9 % (11.8-14.3); White Blood Cell 14.7 10^3/uL (4.4-10.8)
[2023-12-19] MEDS ORDERED: KETOROLAC TROMETH 30 MG/ML 1ML VIAL IV PRN (08:45)
[2023-12-19] MEDS: KETOROLAC TROMETH 30 MG/ML 1ML VIAL IV PRN (12:20)
[2023-12-19] MEDS ORDERED: POLYETHYLENE GLYCOL 17 GM PWDR PO PRN (15:00)
[2023-12-19] MEDS: TPN PER PHARMACY IV NR (20:00)
[2023-12-20] VITALS (7 sets, daily range): BP systolic 99–135; BP diastolic 38–66; PULSE 66–89; RESP 16–18; TEMP 97.5–98.9; O2SAT 98–100
[2023-12-20 06:31] LABS: Alanine Aminotransferase 68 U/L (7-40); Albumin 3.5 g/dL (3.2-4.8); Alkaline Phosphatase 79 U/L (46-116); Anion Gap 9 (5-15); Aspartate Aminotransferase 56 U/L (13-40); BUN/Creatinine Ratio 38.5 (10.0-20.0); Blood Urea Nitrogen 30 mg/dL (9-23); Calcium 8.5 mg/dL (8.5-10.1); Carbon Dioxide 21 mmol/L (20-30); Chloride 107 mmol/L (98-107); Glucose 148 mg/dL (74-106); Potassium 4.4 mmol/L (3.5-5.1); Sodium 137 mmol/L (136-145); Triglycerides 81 mg/dL (< 150)
[2023-12-20 06:32] LABS: Bilirubin, Total 0.7 mg/dL (0.2-1.0); Phosphorus 3.6 mg/dL (2.4-5.1); Total Protein 5.8 g/dL (5.7-8.2)
[2023-12-20 07:00] LABS: Magnesium 2.2 mg/dL (1.6-2.6)
[2023-12-20] MEDS: EMPAGLIFLOZIN 10 MG TAB PO SCH (10:00)
[2023-12-20] MEDS: Ensure HIGH Protein Chocolate 8oz Bottle PO SCH (12:00)
[2023-12-20] MEDS: ACETAMINOPHEN 325 MG TAB PO PRN (12:49)
[2023-12-20] MEDS: TPN PER PHARMACY 0 ML IV SCH (15:15)
[2023-12-20] MEDS ORDERED: DEXTROSE (50%) 50ML SYRG IV PRN (18:30)
[2023-12-20 20:47] LABS: COVID19 ANTIGEN SOFIA FIA NEGATIVE (NEGATIVE)
[2023-12-21] VITALS (7 sets, daily range): BP systolic 106–120; BP diastolic 51–55; PULSE 62–100; RESP 16–18; TEMP 97.3–98.4; O2SAT 98–100
[2023-12-21] MEDS: ACCU-CHEK COMFORT CURVE STRIP VI SCH (00:18)
[2023-12-21] MEDS: InsuLIN REG 1unit/0.01ml Soln (100units/ml) SC SCH (00:20)
[2023-12-21] MEDS: FUROSEMIDE 40 MG TAB PO SCH (06:17)
[2023-12-21] MEDS: ceFAZolin 2 GM/D5W100ml 100 ML IV ONE (07:00)
[2023-12-21] MEDS: ROPIVACAINE 0.5% (5MG/ML) 20ML AMPULE IJ ONE (08:17)
[2023-12-21] MEDS: SUCCINYLCHOLINE CHLORIDE 20 MG/ML 10ML VIAL IV ONE (09:59)
[2023-12-21] MEDS: LABETALOL HCL 5 MG/ML 4ML SYRINGE IV ONE (10:09)
[2023-12-21] MEDS: hydrALAZINE HCL 20 MG/ML VL ONE (11:02)
[2023-12-21] MEDS: HYDROmorphone HCL 2 MG/ML VL/or syr ONE (13:17)
[2023-12-21] MEDS: CLOPIDOGREL BISULFATE 75 MG TAB PO SCH (13:22)
[2023-12-21] MEDS: POTASSIUM CHL 20MEQ/100ML 200 ML IV ONE (16:00)
[2023-12-21] MEDS: ENSURE CLEAR Mixed Berry 8oz Carton PO SCH (18:38)
[2023-12-22] VITALS (7 sets, daily range): BP systolic 122–141; BP diastolic 44–67; PULSE 64–82; RESP 14–17; TEMP 97.3–98.2; O2SAT 94–100
[2023-12-22] MEDS: metroNIDAZOLE 500MG/100ML 100 ML IV SCH (02:11)
[2023-12-23 04:52] VITALS: BP 129/57; PULSE 70; RESP 18; TEMP 98; O2SAT 98
[2023-12-23 08:00] VITALS: PULSE 67; RESP 18
[2023-12-23 08:38] VITALS: BP 135/78; PULSE 65; RESP 17; TEMP 98.3; O2SAT 100
[2023-12-23 11:50] VITALS: BP 121/49; PULSE 68; RESP 16; TEMP 98.2; O2SAT 100
== END 2023-12-23 16:30 | DRG 335 ==
LOC: EDBD 06:50 → ER 06:50 → OVERFLOW 14:44 → WEST WING 22:57 → DOU IN ICU 12-15 15:31 → TELE-EAST 12-19 23:39
PROVIDERS: ADMIT Internal Medicine; ATTEND Family Medicine
PROC: 0D9670Z Drainage of Stomach with Drainage Device, Via Natural or Artificial Opening (ICD-10-PCS; 2023-12-12)
PROC: 02HV33Z Insertion of Infusion Device into Superior Vena Cava, Percutaneous Approach (ICD-10-PCS; 2023-12-13)
PROC: B548ZZA Ultrasonography of Superior Vena Cava, Guidance (ICD-10-PCS; 2023-12-13)
PROC: 0DN80ZZ Release Small Intestine, Open Approach (ICD-10-PCS; 2023-12-15)
PROC: 0WQF0ZZ Repair Abdominal Wall, Open Approach (ICD-10-PCS; principal; 2023-12-15 07:28)
DX: K43.0 Incisional hernia with obstruction, without gangrene (principal); I50.23 Acute on chronic systolic (congestive) heart failure; N39.0 Urinary tract infection, site not specified; I13.0 Hypertensive heart and chronic kidney disease with heart failure and stage 1 through stage 4 chronic kidney disease, or unspecified chronic kidney disease; K43.9 Ventral hernia without obstruction or gangrene; I25.10 Atherosclerotic heart disease of native coronary artery without angina pectoris; I34.0 Nonrheumatic mitral (valve) insufficiency; Z20.822 Contact with and (suspected) exposure to COVID-19; J44.9 Chronic obstructive pulmonary disease, unspecified; G89.4 Chronic pain syndrome; E11.22 Type 2 diabetes mellitus with diabetic chronic kidney disease; N18.9 Chronic kidney disease, unspecified; B96.20 Unspecified Escherichia coli [E. coli] as the cause of diseases classified elsewhere; F17.200 Nicotine dependence, unspecified, uncomplicated; F41.9 Anxiety disorder, unspecified; F32.A Depression, unspecified; E78.00 Pure hypercholesterolemia, unspecified; I25.2 Old myocardial infarction; Z87.11 Personal history of peptic ulcer disease; Z98.61 Coronary angioplasty status; Z79.891 Long term (current) use of opiate analgesic; Z88.8 Allergy status to other drugs, medicaments and biological substances; Z91.041 Radiographic dye allergy status; Z90.49 Acquired absence of other specified parts of digestive tract; Z90.710 Acquired absence of both cervix and uterus; Z83.3 Family history of diabetes mellitus; Z82.49 Family history of ischemic heart disease and other diseases of the circulatory system; Z82.0 Family history of epilepsy and other diseases of the nervous system
CPT/HCPCS: 36415; 36569; 71045; 74018; 74176; 80053; 81001; 82962; 83605; 83690; 83735; 84100; 84478; 85025; 85610; 85730; 86850; 86900; 86901; 87081; 87086; 87088; 87186; 87426; 93005; 97110; 97163; 97530; C9113; G0378; J0330; J1815; J1885; J2212; J2405; J3480; J3490; J7060; J7131

== ENCOUNTER 2024-01-10 19:49 | Inpatient (IN) | payer MEDICARE ==
[~2024-01-10] VITALS: Ht 160 cm; Wt 65.5 kg
[~2024-01-10 19:49] MED LIST changes: -CEPH-510 PO; -LOSA25TA15 PO; +LOSA50TA46 PO; -MORP2INJ4; -PANT40T PO; +PANT40TA2 PO; +VERI2.5T PO
[2024-01-10 20:30] LABS: Basophils # (auto) 0 10 ^3/uL (0-0.2); Basophils % (auto) 0.4 % (0.0-2.0); Eosinophils # (auto) 0.2 10 ^3/uL (0-0.8); Eosinophils % (auto) 1.9 % (0.0-7.0); Hematocrit 41.8 % (36.0-46.0); Hemoglobin 13.6 g/dL (12.2-16.2); Lymphocytes # (auto) 3.6 10 ^3/uL (0.4-5.4); Lymphocytes % (auto) 41.9 % (10.0-50.0); Mean Corpuscular Hemoglobin 29.9 pg (28.0-32.0); Mean Corpuscular Hgb Conc. 32.6 g/dL (32.0-36.0); Mean Corpuscular Volume 91.7 fL (80.0-100.0); Monocytes # (auto) 0.7 10 ^3/uL (0-1.3); Monocytes % (auto) 7.5 % (0.0-12.0); Neutrophils # (auto) 4.2 10 ^3/uL (1.6-8.6); Neutrophils % (auto) 48.3 % (37.0-80.0); Nucleated Red Blood Cells % 0.2 %; Red Blood Cells 4.56 10^6/uL (4.0-5.20); Red Cell Distribution Width 15.1 % (11.8-14.3); White Blood Cell 8.7 10^3/uL (4.4-10.8)
[2024-01-10 20:45] LABS: INR 1.07 (0.9-1.15); Partial Thromboplastin Time 20.8 SEC (24.5-34.5); Prothrombin Time 11.2 sec (9.3-11.8)
[2024-01-10 21:27] LABS: Chloride 103 mmol/L (98-107); Sodium 137 mmol/L (136-145)
[2024-01-10 21:29] LABS: Anion Gap 10 (5-15); Carbon Dioxide 24 mmol/L (20-30)
[2024-01-10 21:30] LABS: Calcium 9.6 mg/dL (8.7-10.4)
[2024-01-10] MEDS: ONDANSETRON HCL 4 MG/2 ML VIAL IV ONE (21:33)
[2024-01-10] MEDS: MORPHINE SULFATE INJ 2 MG/ml SYRG IV ONE (21:33)
[2024-01-10] MEDS: ASPirin 81 mg TAB PO ONE (21:34)
[2024-01-10 21:35] LABS: Alkaline Phosphatase 94 U/L (46-116); Glucose 216 mg/dL (74-106)
[2024-01-10 21:37] LABS: Alanine Aminotransferase 49 U/L (7-40); Albumin 4.6 g/dL (3.2-4.8); Aspartate Aminotransferase 41 U/L (13-40); BUN/Creatinine Ratio 10.5 (10.0-20.0); Bilirubin, Total 0.3 mg/dL (0.2-1.0); Blood Urea Nitrogen 10 mg/dL (9-23); Potassium 3.7 mmol/L (3.5-5.1); Total Protein 7.6 g/dL (5.7-8.2)
[2024-01-10 21:41] VITALS: PULSE 91; RESP 17; O2SAT 100
[2024-01-10] MEDS ORDERED: DEXTROSE (50%) 50ML SYRG IV PRN (22:30)
[2024-01-10] MEDS ORDERED: DOCUSATE SOD 100 MG CAP PO PRN (22:30)
[2024-01-10] MEDS: HYDROcodone-ACET 5/325MG TAB PO PRN (23:03)
[2024-01-11] VITALS (10 sets, daily range): BP systolic 113–134; BP diastolic 60–67; PULSE 70–95; RESP 17–19; TEMP 97.6–98.5; O2SAT 98–100
[2024-01-11] MEDS: ONDANSETRON HCL 4 MG/2 ML VIAL IV PRN (01:43)
[2024-01-11] MEDS: MORPHINE SULFATE INJ 2 MG/ml SYRG IV PRN (02:17)
[2024-01-11] MEDS: SODIUM CHLOR 0.9% PF (SALINE LOCK) 10ML VIAL/SYR IV SCH (06:20)
[2024-01-11] MEDS: InsuLIN REG 1unit/0.01ml Soln (100units/ml) SC SCH ×2 (06:21→21:23)
[2024-01-11] MEDS: ACCU-CHEK COMFORT CURVE STRIP VI SCH (06:21)
[2024-01-11 06:34] LABS: Basophils # (auto) 0 10 ^3/uL (0-0.2); Basophils % (auto) 0.4 % (0.0-2.0); Eosinophils # (auto) 0.2 10 ^3/uL (0-0.8); Eosinophils % (auto) 2.5 % (0.0-7.0); Hematocrit 39.8 % (36.0-46.0); Hemoglobin 13.4 g/dL (12.2-16.2); Lymphocytes # (auto) 3.8 10 ^3/uL (0.4-5.4); Lymphocytes % (auto) 45.8 % (10.0-50.0); Mean Corpuscular Hemoglobin 30.2 pg (28.0-32.0); Mean Corpuscular Hgb Conc. 33.7 g/dL (32.0-36.0); Mean Corpuscular Volume 89.6 fL (80.0-100.0); Monocytes # (auto) 0.7 10 ^3/uL (0-1.3); Monocytes % (auto) 8.5 % (0.0-12.0); Neutrophils # (auto) 3.6 10 ^3/uL (1.6-8.6); Neutrophils % (auto) 42.8 % (37.0-80.0); Nucleated Red Blood Cells % 0.1 %; Red Blood Cells 4.44 10^6/uL (4.0-5.20); Red Cell Distribution Width 14.6 % (11.8-14.3); White Blood Cell 8.3 10^3/uL (4.4-10.8)
[2024-01-11 06:53] LABS: Alanine Aminotransferase 39 U/L (7-40); Alkaline Phosphatase 76 U/L (46-116); Anion Gap 10 (5-15); BUN/Creatinine Ratio 12.9 (10.0-20.0); Blood Urea Nitrogen 12 mg/dL (9-23); Calcium 9.5 mg/dL (8.5-10.1); Carbon Dioxide 26 mmol/L (20-30); Chloride 103 mmol/L (98-107); Glucose 234 mg/dL (74-106); Potassium 3.6 mmol/L (3.5-5.1); Sodium 139 mmol/L (136-145)
[2024-01-11 06:54] LABS: Aspartate Aminotransferase 33 U/L (13-40); Bilirubin, Total 0.2 mg/dL (0.2-1.0); Total Protein 6.6 g/dL (5.7-8.2)
[2024-01-11 09:04] LABS: Hepatitis B Surface Antigen Negative (Negative)
[2024-01-11] MEDS: CARVEDILOL 12.5 MG TAB PO SCH (09:11)
[2024-01-11] MEDS: ASPirin 81 mg TAB PO SCH (09:11)
[2024-01-11] MEDS: FAMOTIDINE (10MG/ML) 2ML VL IV SCH (09:11)
[2024-01-11] MEDS: ENOXAPARIN SOD 40 MG/0.4 ML SYRINGE SC SCH (09:11)
[2024-01-11] MEDS: FUROSEMIDE 40 MG/4 ML VIAL IV SCH (09:12)
[2024-01-11 09:26] LABS: Hepatitis C Antibody Negative (Negative)
[2024-01-11] MEDS: DOCUSATE SOD 100 MG CAP PO SCH (21:25)
[2024-01-11] MEDS: RANOLAZINE ER 500 MG TAB PO SCH (21:26)
[2024-01-11] MEDS: ATORVASTATIN 20 MG TAB PO SCH (21:27)
[2024-01-12] VITALS (8 sets, daily range): BP systolic 102–146; BP diastolic 57–64; PULSE 67–82; RESP 16–19; TEMP 97.7–98.6; O2SAT 99–100
[2024-01-12] MEDS: READI-CAT 2 (BARIUM SULF)(VANILLA SMOOTHIE) 450ML ONE (10:17)
[2024-01-12 11:47] LABS: Urine Bacteria FEW /hpf (None Seen); Urine Blood TRACE /uL (Negative); Urine Budding Yeast LOADED /hpf (None Seen); Urine Clarity CLOUDY (Clear); Urine Color Yellow (Yellow); Urine Protein, UAD 1+ (Negative); Urine Specific Gravity 1.024 (1.001-1.035); Urine Urobilinogen Normal (Negative); Urine WBC 577 /hpf (0 - 5); Urine WBC Clumps PRESENT /hpf (None Seen); Urine pH 6.5 (5.0-8.0)
[2024-01-12] MEDS: LACTULOSE 20Gm/30ML SOLN PO SCH (12:37)
[2024-01-12] MEDS ORDERED: ATOR10TA PO (13:50)
[2024-01-12] MEDS ORDERED: FLUO-125 PO (13:52)
[2024-01-13 05:00] VITALS: BP 129/60; PULSE 95; RESP 18; TEMP 97.8; O2SAT 98
[2024-01-13 08:00] VITALS: PULSE 64; O2SAT 100
[2024-01-13 09:00] VITALS: BP 148/63; PULSE 73; RESP 19; TEMP 98.4; O2SAT 100
[2024-01-13 13:00] VITALS: BP 123/54; PULSE 83; RESP 19; TEMP 98.1; O2SAT 100
[2024-01-13] MEDS: GASTROGRAFIN 30 ML SOL ONE (13:45)
[2024-01-13] MEDS: metroNIDAZOLE 500MG/100ML 100 ML IV SCH (16:09)
[2024-01-13] MEDS: cefTRIAXone 1GM/50ML D5W 50 ML IV ONE (16:09)
[2024-01-13 20:00] VITALS: PULSE 83; PULSE 85; RESP 18; O2SAT 100
[2024-01-13 22:00] VITALS: BP 159/79; PULSE 85; RESP 18; TEMP 98.1; O2SAT 100
[2024-01-14 05:00] VITALS: BP 138/58; PULSE 84; RESP 18; TEMP 98.5; O2SAT 100
[2024-01-14 07:29] LABS: Basophils # (auto) 0 10 ^3/uL (0-0.2); Basophils % (auto) 0.4 % (0.0-2.0); Eosinophils # (auto) 0.1 10 ^3/uL (0-0.8); Eosinophils % (auto) 1.9 % (0.0-7.0); Hematocrit 40.9 % (36.0-46.0); Hemoglobin 13.7 g/dL (12.2-16.2); Lymphocytes # (auto) 2.8 10 ^3/uL (0.4-5.4); Lymphocytes % (auto) 39.2 % (10.0-50.0); Mean Corpuscular Hemoglobin 30.3 pg (28.0-32.0); Mean Corpuscular Hgb Conc. 33.4 g/dL (32.0-36.0); Mean Corpuscular Volume 90.6 fL (80.0-100.0); Monocytes # (auto) 0.6 10 ^3/uL (0-1.3); Monocytes % (auto) 8.3 % (0.0-12.0); Neutrophils # (auto) 3.6 10 ^3/uL (1.6-8.6); Neutrophils % (auto) 50.2 % (37.0-80.0); Nucleated Red Blood Cells % 0.1 %; Red Blood Cells 4.52 10^6/uL (4.0-5.20); Red Cell Distribution Width 14.4 % (11.8-14.3); White Blood Cell 7.2 10^3/uL (4.4-10.8)
[2024-01-14 07:32] LABS: Anion Gap 7 (5-15); Carbon Dioxide 25 mmol/L (20-30); Chloride 107 mmol/L (98-107); Potassium 4.3 mmol/L (3.5-5.1); Sodium 139 mmol/L (136-145)
[2024-01-14 07:33] LABS: Calcium 9.4 mg/dL (8.5-10.1)
[2024-01-14 07:38] LABS: BUN/Creatinine Ratio 9.4 (10.0-20.0); Blood Urea Nitrogen 8 mg/dL (9-23); Glucose 177 mg/dL (74-106)
[2024-01-14 08:00] VITALS: PULSE 85; PULSE 89; O2SAT 99
[2024-01-14 09:05] VITALS: BP 104/64; PULSE 80; RESP 18; TEMP 98.1; O2SAT 100
[2024-01-14] MEDS: cefTRIAXone 1GM/50ML D5W 50 ML IV SCH (09:32)
[2024-01-14] MEDS: KETOROLAC TROMETH 30 MG/ML 1ML VIAL IV PRN (12:32)
[2024-01-14 17:35] VITALS: BP 150/82; PULSE 97; RESP 19; TEMP 98.1; O2SAT 99
[2024-01-14 20:00] VITALS: PULSE 91; O2SAT 100
[2024-01-14 22:00] VITALS: BP 122/62; PULSE 91; RESP 19; TEMP 97.5; O2SAT 100
[2024-01-15] VITALS (7 sets, daily range): BP systolic 127–150; BP diastolic 66–77; PULSE 71–91; RESP 16–19; TEMP 97.1–98.9; O2SAT 96–100
[2024-01-16] VITALS (7 sets, daily range): BP systolic 120–141; BP diastolic 50–69; PULSE 66–94; RESP 17–20; TEMP 97.3–99; O2SAT 99–100
[2024-01-16] MEDS: MORPHINE SULFATE INJ 2 MG/ml SYRG IV PRN ×2 (16:49→21:23)
[2024-01-17] VITALS (7 sets, daily range): BP systolic 103–149; BP diastolic 58–71; PULSE 71–105; RESP 16–19; TEMP 97.8–99; O2SAT 93–100
[2024-01-17] MEDS: IOHEXOL 300 MG/ML 100ML BOTTLE IJ ONE (09:54)
[2024-01-17] MEDS ORDERED: diphenhdrAMINE HCL 50 MG/1 ML VL IV PRN (16:00)
[2024-01-17] MEDS: NITROGLYCERIN 0.4 MG SL TAB SL PRN (21:49)
[2024-01-17] MEDS: MORPHINE SULF 15mg ER tab PO SCH (22:25)
[2024-01-17] MEDS: dilTIAZem 25 MG/5 ML VIAL IV ONE (22:57)
[2024-01-18] MEDS: MORPHINE SULFATE INJ 2 MG/ml SYRG IV PRN ×2 (03:49→14:47)
[2024-01-18 05:00] VITALS: BP 118/50; PULSE 73; RESP 17; TEMP 98.1; O2SAT 99
[2024-01-18 08:00] VITALS: PULSE 78; RESP 18; O2SAT 96
[2024-01-18 10:58] VITALS: BP 150/71; PULSE 87; RESP 19; TEMP 98.4; O2SAT 100
[2024-01-18 17:02] VITALS: BP 127/48; PULSE 84; RESP 19; TEMP 98.8; O2SAT 100
[2024-01-18 20:00] VITALS: BP 136/69; PULSE 85; RESP 16; TEMP 98.2; O2SAT 98
[2024-01-18 22:00] VITALS: BP 136/69; PULSE 85; RESP 16; TEMP 98.2; O2SAT 98
[2024-01-19 05:00] VITALS: BP 127/64; PULSE 85; RESP 18; TEMP 98.2; O2SAT 98
[2024-01-19 08:00] VITALS: PULSE 77; PULSE 89; RESP 18; O2SAT 98
[2024-01-19 08:36] VITALS: BP 130/71; PULSE 85; RESP 17; TEMP 97.4; O2SAT 97
[2024-01-19] MEDS: FAMOTIDINE 20 MG TAB PO SCH (09:28)
[2024-01-19 12:44] VITALS: BP 138/64; PULSE 89; RESP 18; TEMP 98.4; O2SAT 99
[2024-01-19] MEDS: MORPHINE SULFATE INJ 2 MG/ml SYRG IV ONE (16:20)
[2024-01-19 16:31] VITALS: BP 126/64; PULSE 83; RESP 18; TEMP 98.7; O2SAT 91
[2024-01-19 16:40] VITALS: BP 126/85; PULSE 95; TEMP 98.7
== END 2024-01-19 17:40 | DRG 389 ==
LOC: ER 19:49 → EDBD 19:49 → TELE-WESTW 22:25 → TELE 22:25 → TELE-WESTW 23:50
PROVIDERS: ADMIT Nurse Practitioner Family; ATTEND Internal Medicine
DX: K56.41 Fecal impaction (principal); I50.42 Chronic combined systolic (congestive) and diastolic (congestive) heart failure; I11.0 Hypertensive heart disease with heart failure; E11.65 Type 2 diabetes mellitus with hyperglycemia; I25.10 Atherosclerotic heart disease of native coronary artery without angina pectoris; J44.9 Chronic obstructive pulmonary disease, unspecified; I34.0 Nonrheumatic mitral (valve) insufficiency; G89.29 Other chronic pain; E78.5 Hyperlipidemia, unspecified; Z79.899 Other long term (current) drug therapy; Z82.49 Family history of ischemic heart disease and other diseases of the circulatory system; Z83.3 Family history of diabetes mellitus; Z79.84 Long term (current) use of oral hypoglycemic drugs; Z79.02 Long term (current) use of antithrombotics/antiplatelets; Z95.0 Presence of cardiac pacemaker; Z95.5 Presence of coronary angioplasty implant and graft; Z90.710 Acquired absence of both cervix and uterus; Z87.891 Personal history of nicotine dependence; Z99.81 Dependence on supplemental oxygen; Z87.11 Personal history of peptic ulcer disease
CPT/HCPCS: 36415; 71045; 74018; 74176; 80048; 80053; 81001; 82962; 83880; 84484; 85025; 85379; 85610; 85730; 86803; 87081; 87086; 87340; 93005; 93306; 93970; 97110; 97116; 97163; 97530; G0378; J1815; J1885; J2405; J3490

== ENCOUNTER 2024-04-09 17:34 | Emergency (ER) | payer MEDICARE, MEDICAID ==
[~2024-04-09] VITALS: Ht 167.6 cm; Wt 72.7 kg
[~2024-04-09 17:34] MED LIST changes: +ATOR10TA PO; -ATOR20TA50 PO; -CAR3125T PO; +CARV-214 PO; +FLUO-125 PO; +LOSA-534 PO; -LOSA50TA46 PO
[2024-04-09] MEDS: HYDROcodone-ACET 5/325MG TAB PO ONE ×2 (18:15→20:10)
[2024-04-09 18:21] LABS: Hematocrit 40.3 % (36.0-46.0); Hemoglobin 13.5 g/dL (12.2-16.2); Mean Corpuscular Hemoglobin 31.5 pg (28.0-32.0); Mean Corpuscular Hgb Conc. 33.5 g/dL (32.0-36.0); Mean Corpuscular Volume 93.8 fL (80.0-100.0); Red Blood Cells 4.29 10^6/uL (4.0-5.20); Red Cell Distribution Width 13.3 % (11.8-14.3)
[2024-04-09 18:22] LABS: Alanine Aminotransferase 20 U/L (7-40); Albumin 4.5 g/dL (3.2-4.8); Alkaline Phosphatase 120 U/L (46-116); Anion Gap 8 (5-15); Aspartate Aminotransferase 19 U/L (13-40); Bilirubin, Total 0.2 mg/dL (0.2-1.0); Calcium 10.3 mg/dL (8.7-10.4); Carbon Dioxide 22 mmol/L (20-30); Chloride 109 mmol/L (98-107); Glucose 245 mg/dL (74-106); Potassium 3.7 mmol/L (3.5-5.1); Sodium 139 mmol/L (136-145); Total Protein 7.1 g/dL (5.7-8.2)
[2024-04-09 18:25] LABS: Band Neutrophils % (manual) 0; Basophils % (manual) 0 (0.0-2.0); Blast Cells 0; Metamyelocytes % 0; Myelocytes % 0; Promyelocytes % 0; Reactive Lymphocytes 0
[2024-04-09 18:33] LABS: BUN/Creatinine Ratio 6.3 (10.0-20.0); Blood Urea Nitrogen < 5 mg/dL (9-23)
[2024-04-09 18:47] LABS: Eosinophils % (manual) 1 (0-7); Lymphocytes % (manual) 40 (10.0-50.0); Monocytes % (manual) 1 (0-12); Platelet Estimate Adequate
[2024-04-09 19:10] LABS: INR 1.06 (0.9-1.15); Partial Thromboplastin Time 28.2 SEC (24.5-34.5); Prothrombin Time 11.2 sec (9.3-11.8)
[2024-04-09 19:30] VITALS: PULSE 93; RESP 20; O2SAT 93
[2024-04-09 19:37] LABS: Urine Bacteria FEW /hpf (None Seen); Urine Blood Negative /uL (Negative); Urine Clarity Clear (Clear); Urine Color Colorless (Yellow); Urine Protein, UAD Negative (Negative); Urine Specific Gravity 1.005 (1.001-1.035); Urine Urobilinogen Normal (Negative); Urine WBC 41 /hpf (0 - 5); Urine pH 6.5 (5.0-9.0)
[2024-04-09] MEDS ORDERED: ACET500T58 PO (21:03)
[2024-04-09] MEDS ORDERED: BACDST PO (21:03)
[2024-04-09] MEDS: SULFAMETHOX W/TRIMETH(800/160MG) DS TAB PO ONE (21:29)
[2024-04-09 21:53] VITALS: TEMP 98.7
[2024-04-09 21:54] VITALS: BP 137/95; PULSE 101; RESP 19; O2SAT 98
== END 2024-04-09 22:09 | disposition home or self-care (01) ==
LOC: ER 17:34 → EDBD 17:34 → ER 22:09
DX: R07.89 Other chest pain (principal); N39.0 Urinary tract infection, site not specified; I13.0 Hypertensive heart and chronic kidney disease with heart failure and stage 1 through stage 4 chronic kidney disease, or unspecified chronic kidney disease; E11.22 Type 2 diabetes mellitus with diabetic chronic kidney disease; N18.9 Chronic kidney disease, unspecified; I50.9 Heart failure, unspecified; F41.9 Anxiety disorder, unspecified; F32.9 Major depressive disorder, single episode, unspecified; I25.2 Old myocardial infarction; I25.10 Atherosclerotic heart disease of native coronary artery without angina pectoris; Z98.890 Other specified postprocedural states; Z88.8 Allergy status to other drugs, medicaments and biological substances; Z91.041 Radiographic dye allergy status; Z79.899 Other long term (current) drug therapy
CPT/HCPCS: 36415; 71045; 80053; 81001; 84484; 85007; 85027; 85610; 85730; 93005

== ENCOUNTER 2024-05-14 11:01 | Inpatient (IN) | payer MEDICARE, MEDICAID ==
[~2024-05-14] VITALS: Ht 160 cm; Wt 65.3 kg
[2024-05-14] VITALS (7 sets, daily range): BP systolic 109–171; BP diastolic 50–76; PULSE 40–103; RESP 12–20; TEMP 97.4–98.1; O2SAT 2–100
[~2024-05-14 11:01] MED LIST changes: +ACET500T58 PO; +BACDST PO
[2024-05-14] MEDS: ASPirin 81 mg TAB PO ONE (11:30)
[2024-05-14] MEDS: ONDANSETRON HCL 4 MG/2 ML VIAL IV ONE (11:30)
[2024-05-14] MEDS: MORPHINE SULFATE INJ 2 MG/ml SYRG IV ONE (11:30)
[2024-05-14 11:51] LABS: Basophils # (auto) 0 10 ^3/uL (0-0.2); Basophils % (auto) 0.6 % (0.0-2.0); Eosinophils # (auto) 0 10 ^3/uL (0-0.8); Eosinophils % (auto) 0.3 % (0.0-7.0); Hemoglobin 13.5 g/dL (12.2-16.2); Lymphocytes # (auto) 2.5 10 ^3/uL (0.4-5.4); Lymphocytes % (auto) 32.5 % (10.0-50.0); Mean Corpuscular Hemoglobin 31.2 pg (28.0-32.0); Mean Corpuscular Hgb Conc. 34.5 g/dL (32.0-36.0); Mean Corpuscular Volume 90.5 fL (80.0-100.0); Monocytes # (auto) 0.4 10 ^3/uL (0-1.3); Monocytes % (auto) 4.9 % (0.0-12.0); Neutrophils # (auto) 4.8 10 ^3/uL (1.6-8.6); Neutrophils % (auto) 61.7 % (37.0-80.0); Red Blood Cells 4.31 10^6/uL (4.0-5.20); Red Cell Distribution Width 13.2 % (11.8-14.3); White Blood Cell 7.7 10^3/uL (4.4-10.8)
[2024-05-14 12:12] LABS: Alanine Aminotransferase 24 U/L (7-40); Albumin 4.6 g/dL (3.2-4.8); Alkaline Phosphatase 109 U/L (46-116); Anion Gap 8 (5-15); Aspartate Aminotransferase 15 U/L (13-40); BUN/Creatinine Ratio 14.3 (10.0-20.0); Blood Urea Nitrogen 10 mg/dL (9-23); Calcium 9.8 mg/dL (8.5-10.1); Carbon Dioxide 21 mmol/L (20-30); Chloride 110 mmol/L (98-107); Glucose 214 mg/dL (74-106); Potassium 3.6 mmol/L (3.5-5.1); Sodium 139 mmol/L (136-145)
[2024-05-14 12:13] LABS: Bilirubin, Total 0.3 mg/dL (0.2-1.0); Total Protein 6.9 g/dL (5.7-8.2)
[2024-05-14] MEDS ORDERED: MORPHINE SULFATE INJ 2 MG/ml SYRG IV PRN (12:30)
[2024-05-14] MEDS ORDERED: DEXTROSE (50%) 50ML SYRG IV PRN (12:30)
[2024-05-14] MEDS ORDERED: NITROGLYCERIN 0.4 MG SL TAB SL PRN (12:30)
[2024-05-14] MEDS ORDERED: ACETAMINOPHEN 325 MG TAB PO PRN (12:30)
[2024-05-14] MEDS ORDERED: ALBUTEROL SULF 2.5 MG/0.5ML(0.5%) NEB SOLN NEB PRN ×2 (12:45→14:00)
[2024-05-14 12:53] LABS: Triglycerides 90 mg/dL (< 150)
[2024-05-14 12:54] LABS: LDL Cholesterol 86 mg/dL (< 100)
[2024-05-14 12:55] LABS: Cholesterol 151 mg/dL (< 200); HDL Cholesterol 55 mg/dL (40-59)
[2024-05-14] MEDS ORDERED: ALBUTEROL SULF 2.5 MG/0.5ML(0.5%) NEB SOLN NEB SCH (14:00)
[2024-05-14] MEDS ORDERED: IPRATROPIUM BROM 0.5 MG/2.5ML INH SOL NEB PRN (14:00)
[2024-05-14] MEDS ORDERED: IPRATROPIUM BROM 0.5 MG/2.5ML INH SOL NEB SCH (14:00)
[2024-05-14 15:00] LABS: Urine Bacteria FEW /hpf (None Seen); Urine Blood Negative /uL (Negative); Urine Protein, UAD Negative (Negative); Urine Specific Gravity 1.011 (1.001-1.035); Urine Urobilinogen Normal (Negative); Urine WBC 53 /hpf (0 - 5); Urine pH 6.5 (5.0-9.0)
[2024-05-14 15:04] LABS: Urine Clarity Cloudy (Clear); Urine Color Yellow (Yellow)
[2024-05-14 15:13] LABS: COVID19 ANTIGEN SOFIA FIA NEGATIVE (NEGATIVE)
[2024-05-14 15:15] LABS: Rapid Influenza A Negative (Negative); Rapid Influenza B Negative (Negative)
[2024-05-14] MEDS: HYDROcodone-ACET 5/325MG TAB PO PRN (15:54)
[2024-05-14] MEDS: ACCU-CHEK COMFORT CURVE STRIP VI SCH (17:00)
[2024-05-14] MEDS: InsuLIN REG 1unit/0.01ml Soln (100units/ml) SC SCH (17:00)
[2024-05-14] MEDS: KETOROLAC TROMETH 30 MG/ML 1ML VIAL IV ONE (18:58)
[2024-05-14] MEDS: CARVEDILOL 3.125 MG TAB PO SCH (21:28)
[2024-05-14] MEDS: ATORVASTATIN 20 MG TAB PO SCH (21:31)
[2024-05-14] MEDS: FLUoxetine HCL 20 MG CAP PO SCH (21:31)
[2024-05-15] VITALS (13 sets, daily range): BP systolic 111–147; BP diastolic 43–73; PULSE 69–90; RESP 15–22; TEMP 97.2–98.7; O2SAT 2–100
[2024-05-15 06:16] LABS: Basophils # (auto) 0 10 ^3/uL (0-0.2); Basophils % (auto) 0.3 % (0.0-2.0); Eosinophils # (auto) 0.1 10 ^3/uL (0-0.8); Eosinophils % (auto) 1.3 % (0.0-7.0); Hemoglobin 12.7 g/dL (12.2-16.2); Lymphocytes # (auto) 3.1 10 ^3/uL (0.4-5.4); Lymphocytes % (auto) 41.4 % (10.0-50.0); Mean Corpuscular Hgb Conc. 34.3 g/dL (32.0-36.0); Mean Corpuscular Volume 90.6 fL (80.0-100.0); Monocytes # (auto) 0.6 10 ^3/uL (0-1.3); Monocytes % (auto) 7.5 % (0.0-12.0); Neutrophils # (auto) 3.7 10 ^3/uL (1.6-8.6); Neutrophils % (auto) 49.5 % (37.0-80.0); Nucleated Red Blood Cells % 0.1 %; Red Blood Cells 4.08 10^6/uL (4.0-5.20); Red Cell Distribution Width 13.5 % (11.8-14.3); White Blood Cell 7.5 10^3/uL (4.4-10.8)
[2024-05-15] MEDS: FUROSEMIDE 40 MG TAB PO SCH (06:46)
[2024-05-15] MEDS: LOSARTAN POTASSIUM 50 MG TAB PO SCH (08:54)
[2024-05-15] MEDS: ASPirin 81 mg TAB PO SCH (08:54)
[2024-05-15] MEDS: CLOPIDOGREL BISULFATE 75 MG TAB PO SCH (08:55)
[2024-05-15] MEDS: RANOLAZINE ER 500 MG TAB PO SCH (08:55)
[2024-05-15] MEDS ORDERED: PANTOPRAZOLE 40 MG TAB PO SCH (10:00)
[2024-05-15] MEDS: PANTOPRAZOLE 20 MG PO SCH (10:00)
[2024-05-15] MEDS: ENOXAPARIN SOD 40 MG/0.4 ML SYRINGE SC SCH (10:00)
[2024-05-15] MEDS: metOLazone 5 MG TAB PO ONE (10:00)
[2024-05-15] MEDS: VERICIGUAT 2.5 MG PO SCH (10:00)
[2024-05-16] VITALS (11 sets, daily range): BP systolic 125–141; BP diastolic 55–69; PULSE 65–102; RESP 16–22; TEMP 97.6–98.3; O2SAT 2–100
[2024-05-16 06:34] LABS: Basophils # (auto) 0 10 ^3/uL (0-0.2); Basophils % (auto) 0.2 % (0.0-2.0); Eosinophils # (auto) 0.1 10 ^3/uL (0-0.8); Eosinophils % (auto) 1.6 % (0.0-7.0); Hematocrit 38.4 % (36.0-46.0); Hemoglobin 13.2 g/dL (12.2-16.2); Lymphocytes # (auto) 3.2 10 ^3/uL (0.4-5.4); Lymphocytes % (auto) 41.3 % (10.0-50.0); Mean Corpuscular Hemoglobin 31.2 pg (28.0-32.0); Mean Corpuscular Hgb Conc. 34.4 g/dL (32.0-36.0); Mean Corpuscular Volume 90.6 fL (80.0-100.0); Monocytes # (auto) 0.5 10 ^3/uL (0-1.3); Monocytes % (auto) 6.8 % (0.0-12.0); Neutrophils # (auto) 3.8 10 ^3/uL (1.6-8.6); Neutrophils % (auto) 50.1 % (37.0-80.0); Nucleated Red Blood Cells % 0.1 %; Red Blood Cells 4.24 10^6/uL (4.0-5.20); Red Cell Distribution Width 13.4 % (11.8-14.3); White Blood Cell 7.6 10^3/uL (4.4-10.8)
[2024-05-16 06:38] LABS: Anion Gap 9 (5-15); Carbon Dioxide 22 mmol/L (20-30); Chloride 107 mmol/L (98-107); Potassium 3.9 mmol/L (3.5-5.1); Sodium 138 mmol/L (136-145)
[2024-05-16 06:39] LABS: Calcium 9.4 mg/dL (8.5-10.1)
[2024-05-16 06:44] LABS: BUN/Creatinine Ratio 18.9 (10.0-20.0); Blood Urea Nitrogen 14 mg/dL (9-23); Glucose 168 mg/dL (74-106)
[2024-05-17] VITALS (8 sets, daily range): BP systolic 110–140; BP diastolic 51–79; PULSE 69–91; RESP 17–20; TEMP 98.1–98.6; O2SAT 98–100
[2024-05-17] MEDS ORDERED: LANC28MI44 XX (18:54)
[2024-05-17] MEDS ORDERED: BLOO1KIT60 XX (18:54)
[2024-05-17] MEDS ORDERED: INSREGI SC (18:54)
[2024-05-17] MEDS ORDERED: INSU0.5M41 XX (18:54)
== END 2024-05-17 17:31 | disposition home or self-care (01) | DRG 280 ==
LOC: ER 11:01 → EDBD 11:01 → TELE 12:31 → TELE-CENTR 16:55
PROVIDERS: ADMIT Nurse Practitioner Family; ATTEND Internal Medicine
DX: I13.0 Hypertensive heart and chronic kidney disease with heart failure and stage 1 through stage 4 chronic kidney disease, or unspecified chronic kidney disease (principal); I50.43 Acute on chronic combined systolic (congestive) and diastolic (congestive) heart failure; I21.A1 Myocardial infarction type 2; J96.10 Chronic respiratory failure, unspecified whether with hypoxia or hypercapnia; I34.0 Nonrheumatic mitral (valve) insufficiency; I25.10 Atherosclerotic heart disease of native coronary artery without angina pectoris; E11.22 Type 2 diabetes mellitus with diabetic chronic kidney disease; J44.9 Chronic obstructive pulmonary disease, unspecified; F32.A Depression, unspecified; F41.9 Anxiety disorder, unspecified; Z20.822 Contact with and (suspected) exposure to COVID-19; N18.9 Chronic kidney disease, unspecified; G89.29 Other chronic pain; F11.10 Opioid abuse, uncomplicated; F17.200 Nicotine dependence, unspecified, uncomplicated; E78.5 Hyperlipidemia, unspecified; Z95.5 Presence of coronary angioplasty implant and graft; Z90.710 Acquired absence of both cervix and uterus; Z87.11 Personal history of peptic ulcer disease; Z91.199 Patient's noncompliance with other medical treatment and regimen due to unspecified reason; Z95.0 Presence of cardiac pacemaker; Z82.49 Family history of ischemic heart disease and other diseases of the circulatory system; Z83.3 Family history of diabetes mellitus
CPT/HCPCS: 36415; 71045; 73630; 80048; 80053; 80061; 81001; 82962; 83036; 83605; 83880; 84443; 84484; 85025; 85379; 87040; 87426; 87804; 93005; 93306; 93970; 96374; 96375; 97163; G0378; J1815; J1885; J2405

== ENCOUNTER 2024-08-25 01:04 | Inpatient (IN) | payer MEDICARE, MEDICAID ==
[~2024-08-25] VITALS: Ht 167.6 cm; Wt 69.3 kg
[2024-08-25] VITALS (7 sets, daily range): BP systolic 138–154; BP diastolic 76–88; PULSE 90–115; RESP 16–22; TEMP 97.5–98.7; O2SAT 97–100
[~2024-08-25 01:04] MED LIST changes: -BACDST PO; +BLOO1KIT60 XX; +INSREGI SC; +INSU0.5M41 XX; +LANC28MI44 XX
[2024-08-25] MEDS: SODIUM CHLORIDE 0.9% 1,000 ML IV ONE (02:00)
[2024-08-25] MEDS: DEXTROSE 10% 1,000 ML IV ONE ×2 (02:00→04:27)
[2024-08-25 02:28] LABS: Basophils # (auto) 0 10 ^3/uL (0-0.2); Basophils % (auto) 0.3 % (0.0-2.0); Eosinophils # (auto) 0.1 10 ^3/uL (0-0.8); Eosinophils % (auto) 0.4 % (0.0-7.0); Hematocrit 42.8 % (36.0-46.0); Hemoglobin 14.6 g/dL (12.2-16.2); Lymphocytes # (auto) 2.5 10 ^3/uL (0.4-5.4); Lymphocytes % (auto) 17.8 % (10.0-50.0); Mean Corpuscular Hemoglobin 32.4 pg (28.0-32.0); Mean Corpuscular Hgb Conc. 34.1 g/dL (32.0-36.0); Monocytes # (auto) 0.7 10 ^3/uL (0-1.3); Monocytes % (auto) 4.8 % (0.0-12.0); Neutrophils # (auto) 10.9 10 ^3/uL (1.6-8.6); Neutrophils % (auto) 76.7 % (37.0-80.0); Platelet Count (auto) 409 10^3/uL (140-450); Red Blood Cells 4.51 10^6/uL (4.0-5.20); Red Cell Distribution Width 13.7 % (11.8-14.3); White Blood Cell 14.2 10^3/uL (4.4-10.8)
[2024-08-25 02:34] LABS: Alanine Aminotransferase 42 U/L (7-40); Albumin 4.9 g/dL (3.2-4.8); Alkaline Phosphatase 111 U/L (46-116); Anion Gap 9 (5-15); Aspartate Aminotransferase 28 U/L (13-40); BUN/Creatinine Ratio 22.1 (10.0-20.0); Blood Urea Nitrogen 17 mg/dL (9-23); Calcium 9.7 mg/dL (8.7-10.4); Carbon Dioxide 22 mmol/L (20-31); Chloride 109 mmol/L (98-107); Glucose 60 mg/dL (74-106); Potassium 3.3 mmol/L (3.5-5.1); Sodium 140 mmol/L (136-145)
[2024-08-25 02:35] LABS: Bilirubin, Total 0.4 mg/dL (0.2-1.0); Total Protein 7.8 g/dL (5.7-8.2)
[2024-08-25 03:59] LABS: Urine Bacteria MANY /hpf (None Seen); Urine Blood TRACE /uL (Negative); Urine Clarity Turbid (Clear); Urine Color Colorless (Yellow); Urine Mucus FEW (None Seen); Urine Protein, UAD 1+ (Negative); Urine Specific Gravity 1.014 (1.001-1.035); Urine Urobilinogen Normal (Negative); Urine WBC 201 /hpf (0 - 5); Urine WBC Clumps PRESENT /hpf (None Seen); Urine pH 5.5 (5.0-9.0)
[2024-08-25] MEDS: HYDROcodone-ACET 5/325MG TAB PO ONE (10:44)
[2024-08-25] MEDS: FUROSEMIDE 100 MG/10ML VIAL IV ONE (12:15)
[2024-08-25] MEDS ORDERED: IPRATROPIUM BROM 0.5 MG/2.5ML INH SOL NEB ONE (12:30)
[2024-08-25] MEDS ORDERED: ALBUTEROL SULF 2.5 MG/0.5ML(0.5%) NEB SOLN NEB ONE (12:30)
[2024-08-25] MEDS ORDERED: ALBUTEROL SULF 2.5 MG/0.5ML(0.5%) NEB SOLN NEB PRN (12:30)
[2024-08-25] MEDS ORDERED: IPRATROPIUM BROM 0.5 MG/2.5ML INH SOL NEB PRN (12:30)
[2024-08-25 12:59] LABS: Magnesium 2.2 mg/dL (1.6-2.6)
[2024-08-25 13:01] LABS: Phosphorus 3.4 mg/dL (2.4-5.1)
[2024-08-25] MEDS: cefTRIAXone 1GM/50ML D5W 50 ML IV ONE (13:14)
[2024-08-25 13:50] LABS: INR 1.07 (0.9-1.15); Prothrombin Time 11.3 sec (9.3-11.8)
[2024-08-25] MEDS ORDERED: MORPHINE SULFATE INJ 2 MG/ml SYRG IV PRN (14:00)
[2024-08-25] MEDS ORDERED: NITROGLYCERIN 0.4 MG SL TAB SL PRN (14:00)
[2024-08-25] MEDS: POTASSIUM EFFERVESENT TAB 25 MEQ PO ONE (14:42)
[2024-08-25] MEDS: FUROSEMIDE 40 MG/4 ML VIAL IV SCH (18:50)
[2024-08-25] MEDS ORDERED: HYDR-4798 PO (20:25)
[2024-08-25] MEDS: HYDROcodone-ACET 10/325MG TAB PO PRN (20:44)
[2024-08-25] MEDS: FLUoxetine HCL 20 MG CAP PO SCH (20:58)
[2024-08-25] MEDS: ENOXAPARIN SOD 100 MG/1 ML SYRINGE SC SCH (20:59)
[2024-08-25] MEDS: CARVEDILOL 3.125 MG TAB PO SCH (20:59)
[2024-08-26] VITALS (10 sets, daily range): BP systolic 107–147; BP diastolic 55–82; PULSE 90–101; RESP 17–20; TEMP 97.1–98; O2SAT 98–100
[2024-08-26] MEDS ORDERED: EMPAGLIFLOZIN 10 MG TAB PO SCH (07:00)
[2024-08-26 08:11] LABS: Anion Gap 8 (5-15); Carbon Dioxide 27 mmol/L (20-31); Chloride 103 mmol/L (98-107); Sodium 138 mmol/L (136-145)
[2024-08-26 08:12] LABS: Calcium 9.8 mg/dL (8.7-10.4)
[2024-08-26 08:17] LABS: Blood Urea Nitrogen 24 mg/dL (9-23); Glucose 186 mg/dL (74-106)
[2024-08-26] MEDS: cefTRIAXone 1GM/50ML D5W 50 ML IV SCH (10:34)
[2024-08-26] MEDS: RANOLAZINE ER 500 MG TAB PO SCH (10:35)
[2024-08-26] MEDS: ATORVASTATIN 20 MG TAB PO SCH (10:37)
[2024-08-26] MEDS: LOSARTAN POTASSIUM 50 MG TAB PO SCH (10:38)
[2024-08-26] MEDS: PANTOPRAZOLE 40 MG TAB PO SCH (10:38)
[2024-08-26] MEDS: ASPirin-EC 81 mg tab PO SCH (10:39)
[2024-08-26] MEDS: CLOPIDOGREL BISULFATE 75 MG TAB PO SCH (10:39)
[2024-08-26] MEDS: VERICIGUAT PO SCH (10:40)
[2024-08-26 12:25] LABS: Basophils # (auto) 0.1 10 ^3/uL (0-0.2); Basophils % (auto) 0.7 % (0.0-2.0); Eosinophils # (auto) 0.1 10 ^3/uL (0-0.8); Eosinophils % (auto) 0.9 % (0.0-7.0); Hemoglobin 13.7 g/dL (12.2-16.2); Lymphocytes # (auto) 2.6 10 ^3/uL (0.4-5.4); Lymphocytes % (auto) 26.1 % (10.0-50.0); Mean Corpuscular Hemoglobin 32.4 pg (28.0-32.0); Mean Corpuscular Hgb Conc. 34.3 g/dL (32.0-36.0); Mean Corpuscular Volume 94.6 fL (80.0-100.0); Monocytes # (auto) 0.6 10 ^3/uL (0-1.3); Monocytes % (auto) 5.9 % (0.0-12.0); Neutrophils # (auto) 6.7 10 ^3/uL (1.6-8.6); Neutrophils % (auto) 66.4 % (37.0-80.0); Platelet Count (auto) 324 10^3/uL (140-450); Red Blood Cells 4.23 10^6/uL (4.0-5.20); Red Cell Distribution Width 13.3 % (11.8-14.3); White Blood Cell 10.1 10^3/uL (4.4-10.8)
[2024-08-26] MEDS ORDERED: FUROSEMIDE 40 MG/4 ML VIAL IV SCH (13:15)
[2024-08-26 13:24] LABS: COVID19 ANTIGEN SOFIA FIA NEGATIVE (NEGATIVE); Rapid Influenza A Negative (Negative); Rapid Influenza B Negative (Negative)
[2024-08-26] MEDS ORDERED: FLUO40CA PO (16:46)
[2024-08-26] MEDS ORDERED: DEXTROSE (50%) 50ML SYRG IV PRN (17:45)
[2024-08-26] MEDS: FUROSEMIDE 40 MG/4 ML VIAL IV SCH (18:22)
[2024-08-26] MEDS: ACCU-CHEK COMFORT CURVE STRIP VI SCH (21:52)
[2024-08-26] MEDS: InsuLIN REG 1unit/0.01ml Soln (100units/ml) SC SCH (22:00)
[2024-08-27] VITALS (9 sets, daily range): BP systolic 104–117; BP diastolic 49–65; PULSE 81–94; RESP 18–20; TEMP 97.5–98; O2SAT 98–100
[2024-08-27 06:31] LABS: Basophils # (auto) 0.1 10 ^3/uL (0-0.2); Basophils % (auto) 0.7 % (0.0-2.0); Eosinophils # (auto) 0.1 10 ^3/uL (0-0.8); Eosinophils % (auto) 1.3 % (0.0-7.0); Hematocrit 38.2 % (36.0-46.0); Hemoglobin 13.2 g/dL (12.2-16.2); Lymphocytes # (auto) 2.9 10 ^3/uL (0.4-5.4); Lymphocytes % (auto) 36.2 % (10.0-50.0); Mean Corpuscular Hemoglobin 32.6 pg (28.0-32.0); Mean Corpuscular Hgb Conc. 34.5 g/dL (32.0-36.0); Mean Corpuscular Volume 94.4 fL (80.0-100.0); Monocytes # (auto) 0.7 10 ^3/uL (0-1.3); Monocytes % (auto) 8.4 % (0.0-12.0); Neutrophils # (auto) 4.3 10 ^3/uL (1.6-8.6); Neutrophils % (auto) 53.4 % (37.0-80.0); Platelet Count (auto) 296 10^3/uL (140-450); Red Blood Cells 4.05 10^6/uL (4.0-5.20); Red Cell Distribution Width 13.5 % (11.8-14.3)
[2024-08-27 06:38] LABS: Chloride 103 mmol/L (98-107); Potassium 3.8 mmol/L (3.5-5.1); Sodium 139 mmol/L (136-145)
[2024-08-27 06:39] LABS: Anion Gap 8 (5-15); Calcium 9.8 mg/dL (8.7-10.4); Carbon Dioxide 28 mmol/L (20-31)
[2024-08-27 06:44] LABS: BUN/Creatinine Ratio 31.4 (10.0-20.0); Blood Urea Nitrogen 33 mg/dL (9-23); Glucose 158 mg/dL (74-106)
[2024-08-27] MEDS: ENOXAPARIN SOD 60 MG/0.6 ML SYRINGE SC SCH (10:02)
[2024-08-27 11:22] LABS: Urine Bacteria MANY /hpf (None Seen); Urine Blood 1+ /uL (Negative); Urine Clarity Turbid (Clear); Urine Color Light-Yellow (Yellow); Urine Mucus FEW (None Seen); Urine Protein, UAD TRACE (Negative); Urine Specific Gravity 1.015 (1.001-1.035); Urine Urobilinogen Normal (Negative); Urine WBC 515 /hpf (0 - 5); Urine pH 5.5 (5.0-9.0)
[2024-08-27 11:29] LABS: Amphetamine Screen, Urine Neg (NEGATIVE)
[2024-08-27 11:30] LABS: Barbiturate Scree,Urine Neg (NEGATIVE); Benzodiazephine Screen, Urine Neg (NEGATIVE); Cannabinoid Screen, Urine Neg (NEGATIVE); Cocaine Screen, Urine Neg (NEGATIVE); Opiate Scree,Urine Pos (NEGATIVE); Phencyclidine Screen, Urine Neg (NEGATIVE)
[2024-08-27] MEDS: metOLazone 5 MG TAB PO ONE (16:00)
[2024-08-27] MEDS: PIPERACILLIN-TAZOB 3.375GM 100 ML IV SCH (21:50)
[2024-08-28] VITALS (11 sets, daily range): BP systolic 102–119; BP diastolic 48–65; PULSE 78–90; RESP 14–18; TEMP 97.5–98.2; O2SAT 96–100
[2024-08-28 06:20] LABS: Basophils # (auto) 0 10 ^3/uL (0-0.2); Basophils % (auto) 0.3 % (0.0-2.0); Eosinophils # (auto) 0.2 10 ^3/uL (0-0.8); Eosinophils % (auto) 1.6 % (0.0-7.0); Hematocrit 38.7 % (36.0-46.0); Hemoglobin 13.4 g/dL (12.2-16.2); Lymphocytes # (auto) 3.5 10 ^3/uL (0.4-5.4); Lymphocytes % (auto) 37.2 % (10.0-50.0); Mean Corpuscular Hemoglobin 32.5 pg (28.0-32.0); Mean Corpuscular Hgb Conc. 34.5 g/dL (32.0-36.0); Mean Corpuscular Volume 94.1 fL (80.0-100.0); Monocytes # (auto) 0.8 10 ^3/uL (0-1.3); Monocytes % (auto) 8.9 % (0.0-12.0); Neutrophils # (auto) 4.8 10 ^3/uL (1.6-8.6); Platelet Count (auto) 304 10^3/uL (140-450); Red Blood Cells 4.12 10^6/uL (4.0-5.20); Red Cell Distribution Width 13.3 % (11.8-14.3); White Blood Cell 9.3 10^3/uL (4.4-10.8)
[2024-08-28 06:42] LABS: Anion Gap 8 (5-15); Carbon Dioxide 30 mmol/L (20-31); Chloride 99 mmol/L (98-107); Potassium 3.7 mmol/L (3.5-5.1); Sodium 137 mmol/L (136-145)
[2024-08-28 06:48] LABS: BUN/Creatinine Ratio 33.3 (10.0-20.0); Blood Urea Nitrogen 39 mg/dL (9-23); Glucose 136 mg/dL (74-106)
[2024-08-28] MEDS: POTASSIUM CHL 20 Meq TABLET PO ONE (12:57)
[2024-08-29] VITALS (9 sets, daily range): BP systolic 109–134; BP diastolic 52–68; PULSE 78–90; RESP 16–18; TEMP 97.4–98; O2SAT 98–100
[2024-08-29 06:48] LABS: Alanine Aminotransferase 35 U/L (7-40); Albumin 4.6 g/dL (3.2-4.8); Alkaline Phosphatase 87 U/L (46-116); Anion Gap 7 (5-15); Aspartate Aminotransferase 26 U/L (13-40); Blood Urea Nitrogen 41 mg/dL (9-23); Calcium 9.9 mg/dL (8.7-10.4); Carbon Dioxide 31 mmol/L (20-31); Chloride 99 mmol/L (98-107); Glucose 164 mg/dL (74-106); Potassium 3.7 mmol/L (3.5-5.1); Sodium 137 mmol/L (136-145)
[2024-08-29 06:49] LABS: Bilirubin, Total 0.4 mg/dL (0.2-1.0); Total Protein 7.2 g/dL (5.7-8.2)
[2024-08-29] MEDS: cefTRIAXone 1GM/50ML D5W 50 ML IV SCH (08:12)
[2024-08-29] MEDS: FUROSEMIDE 40 MG/4 ML VIAL IV SCH (10:07)
[2024-08-29] MEDS ORDERED: CEPH250C PO (15:08)
[2024-08-29] MEDS ORDERED: ASPI-325 PO (15:08)
[2024-08-29] MEDS ORDERED: ATOR10TA PO (15:08)
[2024-08-29] MEDS ORDERED: CLOP75TA70 PO (15:08)
[2024-08-30 00:46] VITALS: BP 109/63; PULSE 78; RESP 15; TEMP 98.2; O2SAT 100
[2024-08-30 04:56] VITALS: BP 113/58; PULSE 73; RESP 17; TEMP 97.5; O2SAT 99
[2024-08-30 07:00] LABS: Chloride 98 mmol/L (98-107); Potassium 3.4 mmol/L (3.5-5.1); Sodium 137 mmol/L (136-145)
[2024-08-30 07:01] LABS: Anion Gap 8 (5-15); Carbon Dioxide 31 mmol/L (20-31)
[2024-08-30 07:02] LABS: Calcium 9.9 mg/dL (8.7-10.4)
[2024-08-30 07:06] LABS: BUN/Creatinine Ratio 40.2 (10.0-20.0); Blood Urea Nitrogen 39 mg/dL (9-23); Glucose 155 mg/dL (74-106)
[2024-08-30 08:00] VITALS: PULSE 77; PULSE 85; RESP 16
[2024-08-30 09:00] VITALS: BP 131/65; PULSE 80; RESP 18; TEMP 97.4; O2SAT 100
[2024-08-30] MEDS: ENOXAPARIN SOD 40 MG/0.4 ML SYRINGE SC SCH (10:09)
[2024-08-30 14:06] VITALS: BP 118/56; PULSE 85; TEMP 36.3
[2024-08-30 17:00] VITALS: BP 117/63; PULSE 60; RESP 18; TEMP 98.2; O2SAT 100
== END 2024-08-30 18:50 | disposition home health service (06) | DRG 871 ==
LOC: ER 01:04 → EDBD 01:04 → TELE 13:58 → TELE-EAST 18:17
PROVIDERS: ADMIT Internal Medicine; ATTEND Internal Medicine
DX: A41.9 Sepsis, unspecified organism (principal); I50.43 Acute on chronic combined systolic (congestive) and diastolic (congestive) heart failure; I13.0 Hypertensive heart and chronic kidney disease with heart failure and stage 1 through stage 4 chronic kidney disease, or unspecified chronic kidney disease; J96.11 Chronic respiratory failure with hypoxia; N30.01 Acute cystitis with hematuria; E11.649 Type 2 diabetes mellitus with hypoglycemia without coma; E78.5 Hyperlipidemia, unspecified; E87.6 Hypokalemia; Z20.822 Contact with and (suspected) exposure to COVID-19; I25.10 Atherosclerotic heart disease of native coronary artery without angina pectoris; J44.9 Chronic obstructive pulmonary disease, unspecified; K21.9 Gastro-esophageal reflux disease without esophagitis; I16.0 Hypertensive urgency; I34.0 Nonrheumatic mitral (valve) insufficiency; N18.9 Chronic kidney disease, unspecified; E11.42 Type 2 diabetes mellitus with diabetic polyneuropathy; G89.29 Other chronic pain; E11.22 Type 2 diabetes mellitus with diabetic chronic kidney disease; T50.995A Adverse effect of other drugs, medicaments and biological substances, initial encounter; Z99.81 Dependence on supplemental oxygen; Z95.5 Presence of coronary angioplasty implant and graft; Z79.4 Long term (current) use of insulin; Z87.11 Personal history of peptic ulcer disease; Z90.710 Acquired absence of both cervix and uterus; Z90.49 Acquired absence of other specified parts of digestive tract; Z91.199 Patient's noncompliance with other medical treatment and regimen due to unspecified reason; Z83.3 Family history of diabetes mellitus; Z82.49 Family history of ischemic heart disease and other diseases of the circulatory system; I25.2 Old myocardial infarction; Y92.89 Other specified places as the place of occurrence of the external cause; Z88.8 Allergy status to other drugs, medicaments and biological substances; Z79.82 Long term (current) use of aspirin; Z79.899 Other long term (current) drug therapy
CPT/HCPCS: 36415; 71045; 80048; 80053; 80307; 81001; 82306; 82607; 82962; 83036; 83735; 83880; 84100; 84443; 84484; 85025; 85379; 85610; 87040; 87086; 87426; 87804; 93005; 93306; 93925; 93970; 96365; 96375; 97110; 97116; 97163; 97530; G0378; J1815; J2543

== ENCOUNTER 2024-09-13 09:37 | Inpatient (IN) | payer MEDICARE, MEDICAID ==
[~2024-09-13] VITALS: Ht 167.6 cm; Wt 66.0 kg
[~2024-09-13 09:37] MED LIST changes: -ACET500T58 PO; +CEPH250C PO; -FLUO-125 PO; +FLUO40CA PO
[2024-09-13 10:37] LABS: Basophils # (auto) 0 10 ^3/uL (0-0.2); Basophils % (auto) 0.4 % (0.0-2.0); Eosinophils # (auto) 0 10 ^3/uL (0-0.8); Eosinophils % (auto) 0.3 % (0.0-7.0); Hematocrit 38.8 % (36.0-46.0); Hemoglobin 13.1 g/dL (12.2-16.2); Lymphocytes # (auto) 1.2 10 ^3/uL (0.4-5.4); Lymphocytes % (auto) 15.2 % (10.0-50.0); Mean Corpuscular Hemoglobin 31.5 pg (28.0-32.0); Mean Corpuscular Hgb Conc. 33.7 g/dL (32.0-36.0); Mean Corpuscular Volume 93.7 fL (80.0-100.0); Monocytes # (auto) 0.3 10 ^3/uL (0-1.3); Monocytes % (auto) 3.7 % (0.0-12.0); Neutrophils # (auto) 6.6 10 ^3/uL (1.6-8.6); Neutrophils % (auto) 80.4 % (37.0-80.0); Nucleated Red Blood Cells % 0.1 %; Platelet Count (auto) 352 10^3/uL (140-450); Red Blood Cells 4.14 10^6/uL (4.0-5.20); Red Cell Distribution Width 13.2 % (11.8-14.3); White Blood Cell 8.2 10^3/uL (4.4-10.8)
[2024-09-13 10:47] LABS: Chloride 106 mmol/L (98-107); Potassium 3.8 mmol/L (3.5-5.1); Sodium 136 mmol/L (136-145)
[2024-09-13 10:48] LABS: Anion Gap 10 (5-15); Carbon Dioxide 20 mmol/L (20-31)
[2024-09-13 10:49] LABS: Calcium 9.9 mg/dL (8.7-10.4)
[2024-09-13 10:53] LABS: BUN/Creatinine Ratio 10.1 (10.0-20.0); Blood Urea Nitrogen 8 mg/dL (9-23); Glucose 285 mg/dL (74-106)
[2024-09-13 13:10] LABS: INR 1.08 (0.9-1.15); Partial Thromboplastin Time 28.3 SEC (24.5-34.5); Prothrombin Time 11.4 sec (9.3-11.8)
[2024-09-13] MEDS: HEPARIN SODIUM (PORCINE) 5000 UNITS/ML 1ML VIAL IV ONE ×2 (13:14→22:36)
[2024-09-13] MEDS: HEPARIN DRIP/D5W 100UNITS/ML 250 ML IV SCH ×2 (13:15→22:38)
[2024-09-13] MEDS: ASPirin 81 mg TAB PO ONE (13:15)
[2024-09-13] MEDS: SODIUM CHLOR 0.9% PF (SALINE LOCK) 10ML VIAL/SYR IV SCH ×2 (14:08→22:39)
[2024-09-13] MEDS ORDERED: ALBUTEROL SULF 2.5 MG/0.5ML(0.5%) NEB SOLN NEB PRN (15:15)
[2024-09-13] MEDS ORDERED: IPRATROPIUM BROM 0.5 MG/2.5ML INH SOL NEB PRN (15:15)
[2024-09-13] MEDS ORDERED: ACETAMINOPHEN 325 MG TAB PO PRN (15:15)
[2024-09-13] MEDS ORDERED: DEXTROSE (50%) 50ML SYRG IV PRN (15:15)
[2024-09-13] MEDS ORDERED: ONDANSETRON HCL 4 MG/2 ML VIAL IV PRN (15:15)
[2024-09-13] MEDS ORDERED: DOCUSATE SOD 100 MG CAP PO PRN (15:15)
[2024-09-13 15:53] VITALS: BP 144/76; PULSE 102; RESP 18; TEMP 98.9; O2SAT 98
[2024-09-13] MEDS ORDERED: MORPHINE SULFATE INJ 2 MG/ml SYRG IV PRN (16:00)
[2024-09-13] MEDS: HYDROcodone-ACET 5/325MG TAB PO PRN (16:00)
[2024-09-13] MEDS ORDERED: NITROGLYCERIN 0.4 MG SL TAB SL PRN (16:00)
[2024-09-13 16:02] VITALS: O2SAT 98
[2024-09-13] MEDS: InsuLIN REG 1unit/0.01ml Soln (100units/ml) SC SCH ×2 (17:29→22:13)
[2024-09-13] MEDS: ACCU-CHEK COMFORT CURVE STRIP VI SCH (17:29)
[2024-09-13 17:46] LABS: Urine Bacteria None Seen /hpf (None Seen)
[2024-09-13 18:08] LABS: COVID19 ANTIGEN SOFIA FIA NEGATIVE (NEGATIVE)
[2024-09-13 18:11] LABS: Urine Blood 1+ /uL (Negative); Urine Clarity Clear (Clear); Urine Color Yellow (Yellow); Urine Hyaline Cast FEW /lpf (0 - 2); Urine Mucus FEW (None Seen); Urine Protein, UAD 1+ (Negative); Urine Urobilinogen 2 mg/dL (Negative); Urine WBC 35 /hpf (0 - 5)
[2024-09-13 20:15] VITALS: O2SAT 96
[2024-09-13] MEDS: FUROSEMIDE 40 MG/4 ML VIAL IV ONE (20:15)
[2024-09-13] MEDS: ATORVASTATIN 20 MG TAB PO SCH (22:07)
[2024-09-13] MEDS: CARVEDILOL 3.125 MG TAB PO SCH (22:08)
[2024-09-13 22:15] LABS: INR 1.12 (0.9-1.15); Partial Thromboplastin Time 34.2 SEC (24.5-34.5); Prothrombin Time 11.8 sec (9.3-11.8)
[2024-09-13 22:42] VITALS: BP 120/66; PULSE 92; RESP 18; TEMP 97.8; O2SAT 96
[2024-09-14] VITALS (9 sets, daily range): BP systolic 117–121; BP diastolic 57–65; PULSE 88–96; RESP 16–19; TEMP 98–98.7; O2SAT 97–99
[2024-09-14 07:12] LABS: Basophils # (auto) 0 10 ^3/uL (0-0.2); Basophils % (auto) 0.3 % (0.0-2.0); Eosinophils # (auto) 0.1 10 ^3/uL (0-0.8); Eosinophils % (auto) 1.8 % (0.0-7.0); Hematocrit 36.3 % (36.0-46.0); Hemoglobin 12.3 g/dL (12.2-16.2); Lymphocytes # (auto) 2.3 10 ^3/uL (0.4-5.4); Lymphocytes % (auto) 34.7 % (10.0-50.0); Mean Corpuscular Hemoglobin 31.4 pg (28.0-32.0); Mean Corpuscular Hgb Conc. 33.8 g/dL (32.0-36.0); Mean Corpuscular Volume 93.1 fL (80.0-100.0); Monocytes # (auto) 0.4 10 ^3/uL (0-1.3); Monocytes % (auto) 6.5 % (0.0-12.0); Neutrophils # (auto) 3.8 10 ^3/uL (1.6-8.6); Neutrophils % (auto) 56.7 % (37.0-80.0); Nucleated Red Blood Cells % 0.1 %; Platelet Count (auto) 294 10^3/uL (140-450); Red Blood Cells 3.91 10^6/uL (4.0-5.20); Red Cell Distribution Width 13.1 % (11.8-14.3); White Blood Cell 6.7 10^3/uL (4.4-10.8)
[2024-09-14 07:26] LABS: Alanine Aminotransferase 21 U/L (7-40); Albumin 4.3 g/dL (3.2-4.8); Alkaline Phosphatase 77 U/L (46-116); Anion Gap 11 (5-15); Aspartate Aminotransferase 17 U/L (13-40); BUN/Creatinine Ratio 9.6 (10.0-20.0); Blood Urea Nitrogen 8 mg/dL (9-23); Calcium 9.6 mg/dL (8.7-10.4); Carbon Dioxide 22 mmol/L (20-31); Chloride 107 mmol/L (98-107); Glucose 151 mg/dL (74-106); Potassium 3.4 mmol/L (3.5-5.1); Sodium 140 mmol/L (136-145)
[2024-09-14 07:27] LABS: Bilirubin, Total 0.6 mg/dL (0.2-1.0); Total Protein 6.7 g/dL (5.7-8.2)
[2024-09-14] MEDS: FUROSEMIDE 40 MG/4 ML VIAL IV SCH ×2 (08:56→22:33)
[2024-09-14] MEDS: FAMOTIDINE (10MG/ML) 2ML VL IV SCH (08:56)
[2024-09-14] MEDS: EMPAGLIFLOZIN 10 MG TAB PO SCH (11:30)
[2024-09-14] MEDS: POTASSIUM EFFERVESENT TAB 25 MEQ PO ONE (11:30)
[2024-09-14] MEDS: CLOPIDOGREL BISULFATE 75 MG TAB PO SCH (13:11)
[2024-09-15] VITALS (8 sets, daily range): BP systolic 102–127; BP diastolic 52–63; PULSE 76–92; RESP 18–20; TEMP 97.4–98.2; O2SAT 97–99
[2024-09-15 05:47] LABS: Chloride 105 mmol/L (98-107); Potassium 3.5 mmol/L (3.5-5.1); Sodium 137 mmol/L (136-145)
[2024-09-15 05:48] LABS: Anion Gap 7 (5-15); Calcium 9.7 mg/dL (8.7-10.4); Carbon Dioxide 25 mmol/L (20-31)
[2024-09-15 05:53] LABS: BUN/Creatinine Ratio 12.1 (10.0-20.0); Blood Urea Nitrogen 11 mg/dL (9-23); Glucose 172 mg/dL (74-106)
[2024-09-15] MEDS: ASPirin-EC 81 mg tab PO SCH (09:42)
[2024-09-15] MEDS: POTASSIUM EFFERVESENT TAB 25 MEQ PO SCH (09:51)
[2024-09-15] MEDS ORDERED: LISINOPRIL 20 MG TAB PO SCH (10:00)
[2024-09-15] MEDS: LOSARTAN POTASSIUM 25 MG TAB PO SCH (11:30)
[2024-09-15] MEDS: HYDROcodone-ACET 10/325MG TAB PO PRN (14:29)
[2024-09-16] VITALS (9 sets, daily range): BP systolic 115–127; BP diastolic 48–61; PULSE 71–89; RESP 17–18; TEMP 97.4–98.3; O2SAT 96–99
[2024-09-16] MEDS: FLUoxetine HCL 20 MG CAP PO SCH (09:35)
[2024-09-16 09:47] LABS: Chloride 101 mmol/L (98-107); Potassium 4.1 mmol/L (3.5-5.1); Sodium 137 mmol/L (136-145)
[2024-09-16 09:48] LABS: Anion Gap 9 (5-15); Calcium 9.7 mg/dL (8.7-10.4); Carbon Dioxide 27 mmol/L (20-31)
[2024-09-16 09:53] LABS: BUN/Creatinine Ratio 20.2 (10.0-20.0); Blood Urea Nitrogen 21 mg/dL (9-23); Glucose 202 mg/dL (74-106)
[2024-09-16 09:54] LABS: Magnesium 2.2 mg/dL (1.6-2.6)
[2024-09-16] MEDS ORDERED: FLUoxetine HCL 20 MG CAP PO SCH (10:00)
[2024-09-16] MEDS: AMOXICILLIN TRIHYDRATE 250 MG CAP PO SCH (15:57)
[2024-09-16] MEDS: SPIRONOLACTONE 25 MG TAB PO SCH (18:07)
[2024-09-17] VITALS (10 sets, daily range): BP systolic 104–123; BP diastolic 46–70; PULSE 61–82; RESP 17–18; TEMP 97.6–99.2; O2SAT 99–100
[2024-09-17 04:45] LABS: Chloride 102 mmol/L (98-107); Sodium 135 mmol/L (136-145)
[2024-09-17 04:46] LABS: Anion Gap 6 (5-15); Carbon Dioxide 27 mmol/L (20-31)
[2024-09-17 04:47] LABS: Calcium 9.7 mg/dL (8.7-10.4)
[2024-09-17 04:51] LABS: BUN/Creatinine Ratio 20.6 (10.0-20.0); Blood Urea Nitrogen 22 mg/dL (9-23); Glucose 114 mg/dL (74-106)
[2024-09-17] MEDS: FUROSEMIDE 40 MG TAB PO SCH (11:04)
[2024-09-18] VITALS (9 sets, daily range): BP systolic 100–122; BP diastolic 49–63; PULSE 66–78; RESP 18–20; TEMP 97.5–98.3; O2SAT 98–100
[2024-09-18 06:40] LABS: Anion Gap 7 (5-15); Carbon Dioxide 27 mmol/L (20-31); Chloride 102 mmol/L (98-107); Potassium 4.5 mmol/L (3.5-5.1); Sodium 136 mmol/L (136-145)
[2024-09-18 06:41] LABS: Calcium 10.2 mg/dL (8.7-10.4)
[2024-09-18 06:46] LABS: BUN/Creatinine Ratio 27.5 (10.0-20.0); Blood Urea Nitrogen 28 mg/dL (9-23); Glucose 151 mg/dL (74-106)
[2024-09-18 06:47] LABS: Magnesium 2.4 mg/dL (1.6-2.6)
[2024-09-19] VITALS (10 sets, daily range): BP systolic 89–120; BP diastolic 37–67; PULSE 68–104; RESP 16–19; TEMP 97.3–97.9; O2SAT 97–100
[2024-09-20 01:00] VITALS: BP 98/51; PULSE 72; RESP 18; TEMP 97.7; O2SAT 94
[2024-09-20 05:00] VITALS: BP 115/61; PULSE 70; RESP 17; TEMP 98; O2SAT 100
[2024-09-20 08:00] VITALS: PULSE 75; O2SAT 99
[2024-09-20 09:00] VITALS: BP 111/52; PULSE 74; RESP 18; TEMP 97.9; O2SAT 99
== END 2024-09-20 09:20 | disposition home or self-care (01) | DRG 280 ==
LOC: EDBD 09:37 → ER 09:37 → TELE 15:48 → TELE-WESTW 21:19
PROVIDERS: ADMIT Internal Medicine Geriatric Medicine; ATTEND Nurse Practitioner Acute Care
DX: I13.0 Hypertensive heart and chronic kidney disease with heart failure and stage 1 through stage 4 chronic kidney disease, or unspecified chronic kidney disease (principal); I50.43 Acute on chronic combined systolic (congestive) and diastolic (congestive) heart failure; I21.A1 Myocardial infarction type 2; J96.01 Acute respiratory failure with hypoxia; E87.1 Hypo-osmolality and hyponatremia; N39.0 Urinary tract infection, site not specified; E11.65 Type 2 diabetes mellitus with hyperglycemia; Z20.822 Contact with and (suspected) exposure to COVID-19; E87.6 Hypokalemia; G89.29 Other chronic pain; I25.10 Atherosclerotic heart disease of native coronary artery without angina pectoris; E11.22 Type 2 diabetes mellitus with diabetic chronic kidney disease; N18.9 Chronic kidney disease, unspecified; J44.9 Chronic obstructive pulmonary disease, unspecified; I34.0 Nonrheumatic mitral (valve) insufficiency; M19.09 Primary osteoarthritis, other specified site; Z90.710 Acquired absence of both cervix and uterus; Z99.81 Dependence on supplemental oxygen; Z95.5 Presence of coronary angioplasty implant and graft; Z87.11 Personal history of peptic ulcer disease; Z83.3 Family history of diabetes mellitus; Z82.49 Family history of ischemic heart disease and other diseases of the circulatory system
CPT/HCPCS: 36415; 71045; 80048; 80053; 81001; 82962; 83735; 83880; 84484; 85025; 85610; 85730; 87081; 87086; 87088; 87186; 87426; 93005; 96365; 96372; 96375; 97163; G0378; J1815; J3490

== ENCOUNTER 2024-09-25 10:11 | Inpatient (IN) | payer MEDICARE, MEDICAID ==
[~2024-09-25] VITALS: Ht 160 cm; Wt 65.3 kg
[~2024-09-25 10:11] MED LIST changes: -CEPH250C PO; +FURO40TA4 PO; -RANO500T3 PO; -VERI2.5T PO
--- NOTE | 2024-09-25 10:23 | ED.PDOC ---
HPI Comments 68y F who presents to the ED via EMS for chief complaint of chest pain. Per EMS, pt woke up this AM short of breath and started having chest pains. Pt states daughter came back home and states she told daughter of her symptoms and EMS was called to the scene. Upon ED arrival, EMS states they did EKG which showed CO and 3 further EKG were done which did not show CO. EMS states pt was given 324 ASA and pt states chest pain and shortness of breath lessened which was alleviated upon arrival to the ED. Pt in the ED, states her pain was left side of chest, non-radiating, intermittent, "jolt" sensation, with no associated exacerbating or relieving factors. Pt otherwise denies diaphoresis, palpitations, nausea, vomiting, fever, cough, chills, dysuria, headache, or dizziness. Pt otherwise has noted history of 2x CO, CHF, HTN, and DM2. Pt otherwise denies any other symptoms at this time. Chief Complaint: Chest Pain Time Seen by MD: 10:20 Primary Care Provider: Gabriela Reviewed Notes: Nurses Notes, Evaporative Cooler Installer Notes, Medications, Allergies Allergies: Coded Allergies: Iodine (Verified Allergy, Unknown, 04/04/18) Lorazepam (Verified Allergy, Unknown, 09/05/18) Home Meds Active Scripts Atorvastatin Calcium (Lipitor) 10 Mg Tab, 1 TAB PO DAILY for 30 Days, #30 TAB Prov:VARSHA LOFTON RESIDENT 08/29/24 Clopidogrel Bisulfate (CLOPIDOGREL) 75 Mg Tab, 75 MG PO DAILY for 30 Days, #30 TAB Prov:VARSHA LOFTON RESIDENT 08/29/24 Aspirin (Aspirin Low Dose) 81 Mg Tab, 81 MG PO DAILY for 30 Days, #30 TAB Prov:VARSHA LOFTON RESIDENT 08/29/24 Insulin Syringe/Needle U-100 (Bd Insulin Syringe Ultraf) 0.5 Mg/31 G Mis, MG XX TID, #100 2 Refills . Prov:KJ HERMOSILLO RESIDENT 05/17/24 Lancets (ACTI-YOLANDA LANCETS 28G) 28 G Mis, G XX TID PRN, #100 2 Refills Utilizes to measure blood glucose with glucometer. Prov:KJ HERMOSILLO RESIDENT 05/17/24 Blood Glucose Monitoring Suppl (D-Care Glucometer Kit/Glu W/Device) 1 Kit Kit, KIT XX TID, #1 2 Refills Please measure blood globus via glucometer. At least 3 times a day. Preferably before each meal. Prov:KJ HERMOSILLO RESIDENT 05/17/24 Insulin Regular (Human) (Novolin R) 100 Unit/Ml Inj, 0 UNITS SC ACHS for 90 Days, #90 INJ Please use insulin Reglan 3 times a day before meal. Follow below instruction. Please check glucose via glucometer 3 times a day. If blood glucose is between 150 and 200 please administer 2 units of regular insulin. If blood glucose is between 200-250 please administer 4 units of regular insulin. If blood sugar is between 250 and 300 please administer 8 units of regular insulin. If blood sugar between 300-350 please administered 10 units of regular insulin. If blood sugars between 350 and 400 please administer 12 units of regular insulin. If blood sugars greater than 400 please talk to /come to the hospital. Prov:KJ HERMOSILLO RESIDENT 05/17/24 Empagliflozin (Jardiance) 25 Mg Tab, 25 MG PO QAM for 30 Days, #30 TAB Prov:NUHA CORREIA MD 08/14/22 Furosemide (Lasix) 40 Mg Tab, 40 MG PO QAM for 30 Days, #30 TAB Prov:NUHA CORREIA MD 08/14/22 Carvedilol (COREG) 3.125 Mg Tab, 3.125 MG PO Q12HR for 30 Days, #60 TAB Prov:NUHA CORREIA MD 08/14/22 Reported Medications Fluoxetine Hcl (Fluoxetine Hcl) 40 Mg Cap, 40 MG PO BID, CAP 08/26/24 Hydrocodone-Acetaminophen (Hydrocodone Bitartrate/AC 10-325 mg) 1 Tab Tab, 1 TAB PO Q6HP, TAB 08/25/24 Pantoprazole Sodium Sesquihydr (Protonix) 40 Mg Tab, 20 MG PO DAILY 12/14/23 Losartan Potassium (Losartan Potassium) 50 Mg Tab, 1 TAB PO DAILY 12/14/23 Information Source: Patient, Emergency Med Personnel Mode of Arrival: EMS Brought in by: EMS Severity: Moderate Timing: Minutes, Hours Duration: Since onset Prehospital treatment: 12 Lead EKG, ASA Location: Chest (L) Radiation: No Radiation Quality: Sharp Onset: At Rest Cardiac Risk Factors: Family History, HTN, Diabetes PE Risk Factors: None History of: Similar pain in past, CO Modifying Factors: Rest Associated Signs and Symptoms: SOB Past Medical History PAST MEDICAL HISTORY: Anxiety, CAD, CHF, CKF, COPD, Depression, DM, HTN, CO, PUD, UTI'S Surgical History: Appendectomy, Cholecystectomy, , Hernia Repair, Hysterectomy, Pacemaker, PTCA, Tonsillectomy Surgical History (Other): back surgery, abdominal surgery, 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 History: No Pertinent 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 History Family History Family History: Unknown Social History Smoker: Cigarettes Alcohol: Denies ETOH Use Drugs: Denies Drug Use Lives In: Home Constitutional: denies: chills, diaphoresis, fatigue, fever, malaise, sweats, weakness, others EENTM: denies: blurred vision, double vision, ear bleeding, ear discharge, ear drainage, ear pain, ear ringing, eye pain, eye redness, hearing loss, mouth pain, mouth swelling, nasal discharge, nose bleeding, nose congestion, nose pain, photophobia, tearing, throat pain, throat swelling, voice changes, others Respiratory: reports: shortness of breath; denies: cough, hemoptysis, ort hopnea, SOB at rest, SOB with excertion, stridor, wheezing, others Cardiovascular: reports: chest pain; denies: dizzy spells, diaphoresis, Dyspnea on exertion, edema, irregular heart beat, left arm pain, lightheadedness, palpitations, PND, syncope, others Gastrointestinal: denies: abdomen distended, abdominal pain, blood streaked bowels, constipated, diarrhea, dysphagia, difficulty swallowing, hematemesis, melena, nausea, poor appetite, poor fluid intake, rectal bleeding, rectal pain, vomiting, others Genitourinary: denies: abnormal vagina bleeding, burning, dyspareunia, dysuria, flank pain, frequency, hematuria, incontinence, pain, , vagina discharge, urgency, others Neurological: denies: dizziness, fainting, headache, left sided numbness, left sided weakness, numbness, paresthesia, pre-existing deficit, right sided numbness, right sided weakness, seizure, speech problems, tingling, tremors, w eakness, others Musculoskeletal: denies: back pain, gout, joint pain, joint swelling, muscle pain, muscle stiffness, neck pain, others Integumetry: denies: bruises, change in color, change in hair/nails, dryness, laceration, lesions, lumps, rash, wounds, others Allergic/Immunocompromised: denies: Difficulty Healing, Frequent Infections, Hives, Itching, others Hematologic/Lymphatic: denies: anemia, blood clots, easy bleeding, easy bruising, swollen glands, others Endocrine: denies: excessive hunger, excessive sweating, excessive thirst, excessive urination, flushing, intolerance to cold, intolerance to heat, unexplained weight gain, unexplained weight loss, others Psychiatric: denies: anxiety, bipolar disorder, depression, hopeless, panic disorder, schizophrenia, sleepless, suicidal, others All Other Systems: Reviewed and Negative Physical Exam General Appearance: Moderate Distress HEENT: Normal ENT Inspection, Pharynx Normal, TMs Normal Neck: Full Range of Motion, Non-Tender, Normal, Normal Inspection Respiratory: Chest Non-Tender, Decreased Breath Sounds, No Accessory Muscle Use, Rales, Respiratory Distress Cardiovascular: No Edema, No JVD, No Murmur, No Gallop, Normal Peripheral Pulses, Regular Rate/Rhythm Breast Exam: Deferred Gastrointestinal: No Organomegaly, Non Tender, No Pulsatile Mass, Normal Bowel Sounds, Soft Genitalia: Deferred Pelvic: Deferred Rectal: Deferred Extremities: No calf tenderness, Normal capillary refill, Normal inspection, Normal range of motion, Non-tender, No pedal edema Musculoskeletal : Apperance: Normal Neurologic: Alert, haul driver II-XII nml as Tested, Motor Weakness, Normal Affect, Normal Mood, No Sensory Deficits Cerebellar Function: Normal Reflexes: Normal Skin: Dry, Normal Color, Warm Lymphatic: No Adenopathy EKG EKG : Pulse Rate (adult): 74 [place]: Normal Cardiac Rhythm: NSR Block: None Hypertrophy: LAE ST: Normal Was a procedure done? Was a procedure done?: No CP Differential Dx Differential Diagnosis: A-fib, A-Flutter, Angina, Anxiety / Panic Attack, Atrial Dysrhythmia, AV Block 1st Degree, AV Block 2nd Degree, Electrolyte Disorder, Heart Failure, CO, PVC's Other Differential Diagnosis acute coronary syndrome, Differential Diagnosis: HTN Essential, HTN Accelerated X-Ray, Labs, Meds, VS Vital Signs Date Time Temp Pulse Resp B/P (MAP) Pulse Ox O2 Delivery O2 Flow Rate FiO2 09/25/24 11:13 85 09/25/24 10:23 74 09/25/24 10:16 84 09/25/24 10:11 98.2 95 18 145/84 (104) 99 Lab Test 09/25/24 11:40 09/25/24 10:28 Range/Units Troponin I High Sensitivity 28 22 </=34 ng/L White Blood Count 8.3 4.4-10.8 10^3/uL Red Blood Count 4.43 4.0-5.20 10^6/uL Hemoglobin 13.9 12.2-16.2 g/dL Hematocrit 40.7 36.0-46.0 % Mean Corpuscular Volume 91.9 80.0-100.0 fL Mean Corpuscular Hemoglobin 31.3 28.0-32.0 pg Mean Corpuscular Hemoglobin Concent 34.1 32.0-36.0 g/dL Red Cell Distribution Width 13.1 11.8-14.3 % Platelet Count 281 140-450 10^3/uL Mean Platelet Volume 7.1 6.9-10.8 fL Neutrophils (%) (Auto) 52.1 37.0-80.0 % Lymphocytes (%) (Auto) 41.1 10.0-50.0 % Monocytes (%) (Auto) 5.6 0.0-12.0 % Eosinophils (%) (Auto) 0.9 0.0-7.0 % Basophils (%) (Auto) 0.3 0.0-2.0 % Neutrophils # (Auto) 4.3 1.6-8.6 10 ^3/uL Lymphocytes # (Auto) 3.4 0.4-5.4 10 ^3/uL Monocytes # (Auto) 0.5 0-1.3 10 ^3/uL Eosinophils # (Auto) 0.1 0-0.8 10 ^3/uL Basophils # (Auto) 0 0-0.2 10 ^3/uL Nucleated Red Blood Cells 0.1 % Sodium Level 138 136-145 mmol/L Potassium Level 4.2 3.5-5.1 mmol/L Chloride Level 109 H 98-107 mmol/L Carbon Dioxide Level 20 20-31 mmol/L Anion Gap 9 5-15 Blood Urea Nitrogen 17 9-23 mg/dL Creatinine 0.95 0.550-1.02 mg/dL Glomerular Filtration Rate Calc 64 >90 mL/min BUN/Creatinine Ratio 17.9 10.0-20.0 Serum Glucose 235 H 74-106 mg/dL Calcium Level 10.3 8.7-10.4 mg/dL B-Type Natriuretic Peptide 637.20 0-100 pg/mL EKG shows sinus at 85 LAE normal sinus rhythm The chest x-ray shows: IMPRESSION: 1. Pulmonary vascular congestion. Improved bibasilar airspace disease when compared to 09/16/2024. The patient's CBC and chemistry panel is within normal limits The BNP is 637.20 At this time, the patient was given Lasix 40 mg IV push The patient is being admitted to the hospitalist A cardiology consult will be obtained. Images Reviewed?: Images reviewed and evaluated by me Time of 1ST Reevaluation: 10:50 Reevaluation 1ST: Unchanged Patient Education/Counseling: Diagnosis, Treatment, Prognosis Family Education/Counseling: No Family Present Departure 1 Departure Time of Disposition: 13:20 Impression: Primary Impression: Acute myocardial ischemia Additional Impression: Acute on chronic diastolic heart failure Disposition: ADMITTED INPATIENT Admit to: [facility] Condition: Fair Critical Care Note Critical Care Time?: Yes (35 min-critical care time only) Stability Stability form required: Yes Unstable for transfer: Telemetry monitoring (Telemetry monitoring required), ED Physician Assesment (Clinical assesment) Heart Score Heart Score: Heart Score Response (Comments) Value History Moderate Suspicious 1 EKG Normal 0 Age >65 2 Risk Factors >3 or Hx ASHD 2 Troponin Normal limit 0 Total 5 I personally scribed for SHEILA EMERY MD ([email or web address]) on 09/25/24 at 10:23. Electronically submitted by Libby Sanchez ([email or web address]). SHEILA EMERY MD Sep 25, 2024 10:23
[2024-09-25 10:47] LABS: Basophils # (auto) 0 10 ^3/uL (0-0.2); Basophils % (auto) 0.3 % (0.0-2.0); Eosinophils # (auto) 0.1 10 ^3/uL (0-0.8); Eosinophils % (auto) 0.9 % (0.0-7.0); Hematocrit 40.7 % (36.0-46.0); Hemoglobin 13.9 g/dL (12.2-16.2); Lymphocytes # (auto) 3.4 10 ^3/uL (0.4-5.4); Lymphocytes % (auto) 41.1 % (10.0-50.0); Mean Corpuscular Hemoglobin 31.3 pg (28.0-32.0); Mean Corpuscular Hgb Conc. 34.1 g/dL (32.0-36.0); Mean Corpuscular Volume 91.9 fL (80.0-100.0); Monocytes # (auto) 0.5 10 ^3/uL (0-1.3); Monocytes % (auto) 5.6 % (0.0-12.0); Neutrophils # (auto) 4.3 10 ^3/uL (1.6-8.6); Neutrophils % (auto) 52.1 % (37.0-80.0); Nucleated Red Blood Cells % 0.1 %; Platelet Count (auto) 281 10^3/uL (140-450); Red Blood Cells 4.43 10^6/uL (4.0-5.20); Red Cell Distribution Width 13.1 % (11.8-14.3); White Blood Cell 8.3 10^3/uL (4.4-10.8)
[2024-09-25 10:56] LABS: Chloride 109 mmol/L (98-107); Potassium 4.2 mmol/L (3.5-5.1); Sodium 138 mmol/L (136-145)
[2024-09-25 10:57] LABS: Anion Gap 9 (5-15); Calcium 10.3 mg/dL (8.7-10.4); Carbon Dioxide 20 mmol/L (20-31)
[2024-09-25 11:02] LABS: BUN/Creatinine Ratio 17.9 (10.0-20.0); Blood Urea Nitrogen 17 mg/dL (9-23); Glucose 235 mg/dL (74-106)
--- NOTE | 2024-09-25 11:02 | ECG ---
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
--- NOTE | 2024-09-25 11:14 | ECG ---
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
--- NOTE | 2024-09-25 11:23 | DVH ---
CHEST RADIOGRAPH Indication:CP Technique: Single frontal view of the chest was obtained COMPARISON: XY CHEST PORTABLE on DOS: 09/16/24, FINDINGS: Lines and Tubes: Stable AICD/pacemaker Lungs: Pulmonary vascular congestion. Improved bibasilar airspace disease. Pleura: No effusion. No pneumothorax. Cardiomediastinal contours: Unremarkable Bones: Degenerative changes. IMPRESSION: 1. Pulmonary vascular congestion. Improved bibasilar airspace disease when compared to 09/16/2024.
[2024-09-25 15:30] VITALS: O2SAT 96
[2024-09-25] MEDS ORDERED: ONDANSETRON HCL 4 MG/2 ML VIAL IV PRN (15:45)
[2024-09-25] MEDS ORDERED: ACETAMINOPHEN 325 MG TAB PO PRN (15:45)
[2024-09-25] MEDS ORDERED: DEXTROSE (50%) 50ML SYRG IV PRN (15:45)
[2024-09-25] MEDS ORDERED: NITROGLYCERIN 0.4 MG SL TAB SL PRN (15:45)
--- NOTE | 2024-09-25 16:44 | DVHHP2 ---
History of Present Illness Reason for Visit: Shortness of Breath History of Present Illness 68 yo female with CHF, HTN< DM and chronic back pain comes with complaints of stated shortness of breath and states that it was associated with acute chest pain on evaluation patient in no acute distress but does have a cardiac history and also states that she is having severe back pain and needs help controlling her pain and her breathing Cardiovascular: CHF Endocrine: Diabetes Review of Systems Constitutional: No: Fever, Chills, Sweats, Weakness, Malaise, Other Eyes: No: Pain, Vision change, Conjunctivae inflammation, Eyelid inflammation, Other, Redness ENT: No: Ear pain, Ear discharge, Nose pain, Nose discharge, Nose congestion, Mouth pain, Mouth swelling, Throat pain, Throat swelling, Other Respiratory: Shortness of breath, Wheezing; No: Cough, Dry, SOB with excertion, Hemoptysis, Pleuritic Pain, Sputum, Wheezing, Other Cardiovascular: Chest Pain; No: Palpitations, Orthopnea, Paroxysmal Noc. Dyspnea, Edema, Lt Headedness, Other Gastrointestinal: No: Nausea, Vomiting, Abdominal Pain, Diarrhea, Constipation, Melena, Hematochezia, Other Genitourinary: No Dysuria, No Frequency, No Incontinence, No Hematuria, No Retention, No Other Musculoskeletal: back pain; No: other, neck pain, shoulder pain, arm pain, hand pain, leg pain, foot pain Skin: No: Rash, Lesions, Jaundice, Bruising, Other Neurological: No: Weakness, Numbness, Incoordination, Change in speech, Confusion, Seizures, Other Allergies: Coded Allergies: Iodine (Verified Allergy, Unknown, 04/04/18) Lorazepam (Verified Allergy, Unknown, 09/05/18) Medications Current Medications Medications Dose Ordered Sig/Yesica Route Start Time Stop Time Status Last Admin Dose Admin Aspirin 81 mg DAILY PO 09/26/24 10:00 Carvedilol 3.125 mg Q12HR PO 09/25/24 22:00 Clopidogrel Bisulfate 75 mg DAILY PO 09/26/24 10:00 Acetaminophen/ Hydrocodone Bitart 1 tab Q6HP PO 09/25/24 18:00 Losartan Potassium 50 mg DAILY PO 09/26/24 10:00 Pantoprazole Sodium 40 mg DAILY PO 09/26/24 10:00 Atorvastatin Calcium 10 mg HS PO 09/25/24 22:00 Fluoxetine HCl 40 mg BID PO 09/26/24 10:00 Acetaminophen 650 mg Q6HP PRN PO 09/25/24 15:45 Docusate Sodium 100 mg DAILY PO 09/26/24 10:00 Ondansetron HCl 4 mg Q4HP PRN IV 09/25/24 15:45 Nitroglycerin 0.4 mg Q5MINP PRN SL 09/25/24 15:45 Morphine Sulfate 2 mg Q30M PRN IV 09/25/24 15:45 Furosemide 40 mg BID IV 09/25/24 22:00 Diagnostic Test (Pha) 1 strip ACHS 09/25/24 17:00 Insulin Human Regular HS SC 09/25/24 22:00 Insulin Human Regular AC SC 09/25/24 17:00 Dextrose 50 ml UD PRN IV 09/25/24 15:45 Exam Vital Signs Vital Signs Date Time Temp Pulse Resp B/P (MAP) Pulse Ox O2 Delivery O2 Flow Rate FiO2 09/25/24 15:20 96 18 130/62 (84) 98 09/25/24 10:11 98.2 General Appearance: Alert, Oriented X3 HEENT: Atraumatic, PERRLA Respiratory: Clear to auscultation, Normal air movement Cardiovascular: Regular rate, Normal S1, Normal S2 Abdominal: Normal bowel sounds, Soft Extremities: No clubbing, No cyanosis Skin: No rashes, No breakdown Neuro: Normal gait, Normal speech Psych/Mental Status: Mood NL Labs/Xrays Labs Test 09/25/24 15:49 09/25/24 10:28 Range/Units White Blood Count 8.3 4.4-10.8 10^3/uL Red Blood Count 4.43 4.0-5.20 10^6/uL Hemoglobin 13.9 12.2-16.2 g/dL Hematocrit 40.7 36.0-46.0 % Mean Corpuscular Volume 91.9 80.0-100.0 fL Mean Corpuscular Hemoglobin 31.3 28.0-32.0 pg Mean Corpuscular Hemoglobin Concent 34.1 32.0-36.0 g/dL Red Cell Distribution Width 13.1 11.8-14.3 % Platelet Count 281 140-450 10^3/uL Mean Platelet Volume 7.1 6.9-10.8 fL Neutrophils (%) (Auto) 52.1 37.0-80.0 % Lymphocytes (%) (Auto) 41.1 10.0-50.0 % Monocytes (%) (Auto) 5.6 0.0-12.0 % Eosinophils (%) (Auto) 0.9 0.0-7.0 % Basophils (%) (Auto) 0.3 0.0-2.0 % Neutrophils # (Auto) 4.3 1.6-8.6 10 ^3/uL Lymphocytes # (Auto) 3.4 0.4-5.4 10 ^3/uL Monocytes # (Auto) 0.5 0-1.3 10 ^3/uL Eosinophils # (Auto) 0.1 0-0.8 10 ^3/uL Basophils # (Auto) 0 0-0.2 10 ^3/uL Nucleated Red Blood Cells 0.1 % Sodium Level 138 136-145 mmol/L Potassium Level 4.2 3.5-5.1 mmol/L Chloride Level 109 H 98-107 mmol/L Carbon Dioxide Level 20 20-31 mmol/L Anion Gap 9 5-15 Blood Urea Nitrogen 17 9-23 mg/dL Creatinine 0.95 0.550-1.02 mg/dL Glomerular Filtration Rate Calc 64 >90 mL/min BUN/Creatinine Ratio 17.9 10.0-20.0 Serum Glucose 235 H 74-106 mg/dL Calcium Level 10.3 8.7-10.4 mg/dL B-Type Natriuretic Peptide 637.20 0-100 pg/mL Assessment/Plan Assessment/Plan Admit Tele Chest Pain Nonspecific History CAD complaints of chest pain Trops times 3 negative monitor for acute changes and monitor closely given history Acute on Chronic CHF exacerbation Patient with CXR showing congestion BNP elevated 637 IV lasix BID monitor BUN/CR c/w home meds Chronic back pain PRN pain meds DM Hyperglycemia Insulin sliding scale Plan discussed with: Patient My Orders Orders - TALAT RAMIREZ MD Procedure Category Date Status Time Aspirin Enteric PHA 09/26/24 In Process Coated Tablet 10:00 Carvedilol Tablet PHA 09/25/24 In Process (Coreg Tablet) 22:00 Clopidogrel Bisulfate PHA 09/26/24 In Process (Plavix) 10:00 Hydrocodone-Acet PHA 09/25/24 In Process 10/325mg Tab ([place] 18:00 Losartan Tablet PHA 09/26/24 In Process (Cozaar Tablet) 10:00 Pantoprazole Tablet PHA 09/26/24 In Process (Protonix Tablet) 10:00 Admit ADMIT 09/25/24 Transmitted 15:34 Code Status CODE 09/25/24 Transmitted 15:34 Vital Signs DIANA 09/25/24 In Process 15:34 Hardware Designer DIANA 09/25/24 In Process 15:34 Cardiac DIET 09/25/24 Transmitted Diet-2gna,Lofat,Lochol Dinner Acetaminophen Tablet PHA 09/25/24 In Process (Tylenol Tablet) 15:45 Docusate Sodium PHA 09/26/24 In Process Capsule (Colace 10:00 Complete Blood Count LAB 09/26/24 Verified 04:00 Basic Metabolic Panel LAB 09/26/24 Verified 04:00 Ondansetron Hcl PHA 09/25/24 In Process (Zofran) 15:45 Electrocardigram EKG 09/25/24 Logged 15:34 Troponin-I Hs LAB 09/25/24 In Process 15:34 Cardiac DIANA 09/25/24 In Process Rehabilitation - Outpa Comprehensive LAB 09/27/24 Verified Metabolic Panel 04:00 Nitroglycerin PHA 09/25/24 In Process Sublingual (Ntrostat 15:45 Morphine Sulfate PHA 09/25/24 In Process Injection 15:45 Stat Ekg For Chest DIANA 09/25/24 In Process Pain 15:34 Notify Of Changes BANNER 09/25/24 In Process From Base 15:34 Design Assembler For BANNER 09/25/24 In Process 24 Hours 15:34 Emergency Dysrhythmia BANNER 09/25/24 In Process Protocol 15:34 Rhythm Strips Once BANNER 09/25/24 In Process Every Shift 15:34 Oxygen By Nasal RT 09/25/24 Transmitted Cannula 15:34 Electrocardigram EKG 09/25/24 Logged 16:34 Electrocardigram EKG 09/25/24 Logged 18:34 Troponin-I Hs LAB 09/25/24 Logged 16:34 Troponin-I Hs LAB 09/25/24 Logged 18:34 Furosemide Injection PHA 09/25/24 In Process (Lasix Injection) 22:00 Glucose Blood PHA 09/25/24 In Process (Accu-Chek Comfort 17:00 Insulin R (Human) PHA 09/25/24 In Process (Insulin R) 22:00 Insulin R (Human) PHA 09/25/24 In Process (Insulin R) 17:00 Dextrose 50% Syringe PHA 09/25/24 In Process 15:45 Atorvastatin (Lipitor) PHA 09/25/24 In Process 22:00 Fluoxetine Capsule PHA 09/26/24 In Process (Prozac Capsule) 10:00 Morphine Sulfate PHA 09/25/24 Transmitted Injection 16:30 Problem List: (1) Diabetes mellitus with hyperglycemia (2) CHF (congestive heart failure) (3) Chest pain (4) Cardiomegaly (5) Pulmonary edema (6) Acute on chronic diastolic heart failure Date of Service: Sep 25, 2024 Billing Provider: TALAT RAMIREZ MD Common Visit Codes: 79328-ELSONCE INP/OBS CARE (HIGH) TALAT RAMIREZ MD Sep 25, 2024 16:44
[2024-09-25] MEDS: MORPHINE SULFATE INJ 2 MG/ml SYRG IV PRN ×2 (16:49→16:50)
[2024-09-25] MEDS: FUROSEMIDE 40 MG/4 ML VIAL IV ONE (16:49)
[2024-09-25] MEDS ORDERED: InsuLIN REG 1unit/0.01ml Soln (100units/ml) SC SCH (17:00)
[2024-09-25] MEDS: ACCU-CHEK COMFORT CURVE STRIP VI SCH (18:10)
[2024-09-25] MEDS: InsuLIN REG 1unit/0.01ml Soln (100units/ml) SC SCH ×2 (18:10→22:40)
[2024-09-25 19:25] VITALS: PULSE 96; RESP 16; O2SAT 100
[2024-09-25] MEDS: HYDROcodone-ACET 10/325MG TAB PO SCH (19:41)
[2024-09-25] MEDS ORDERED: ATORVASTATIN 20 MG TAB PO SCH (22:00)
[2024-09-25 22:05] VITALS: BP 118/59; PULSE 74; RESP 17; RESP 19; TEMP 97.7; O2SAT 100
[2024-09-25] MEDS: FUROSEMIDE 40 MG/4 ML VIAL IV SCH (22:36)
[2024-09-25] MEDS: CARVEDILOL 3.125 MG TAB PO SCH (22:38)
[2024-09-25] MEDS: ATORVASTATIN 20 MG TAB PO SCH (22:39)
[2024-09-26] VITALS (8 sets, daily range): BP systolic 101–121; BP diastolic 44–57; PULSE 62–88; RESP 17–19; TEMP 97.7–98.4; O2SAT 96–100
[2024-09-26 05:09] LABS: Urine Bacteria FEW /hpf (None Seen); Urine Blood 2+ /uL (Negative); Urine Clarity Turbid (Clear); Urine Color Colorless (Yellow); Urine Hyaline Cast MANY /lpf (0 - 2); Urine Mucus FEW (None Seen); Urine Protein, UAD Negative (Negative); Urine Specific Gravity 1.009 (1.001-1.035); Urine Urobilinogen Normal (Negative); Urine WBC 134 /hpf (0 - 5); Urine WBC Clumps PRESENT /hpf (None Seen)
[2024-09-26 05:44] LABS: Basophils # (auto) 0 10 ^3/uL (0-0.2); Basophils % (auto) 0.4 % (0.0-2.0); Eosinophils # (auto) 0.2 10 ^3/uL (0-0.8); Eosinophils % (auto) 2.1 % (0.0-7.0); Hematocrit 39.1 % (36.0-46.0); Hemoglobin 13.1 g/dL (12.2-16.2); Lymphocytes # (auto) 4.2 10 ^3/uL (0.4-5.4); Lymphocytes % (auto) 48.7 % (10.0-50.0); Mean Corpuscular Hemoglobin 31.3 pg (28.0-32.0); Mean Corpuscular Hgb Conc. 33.6 g/dL (32.0-36.0); Mean Corpuscular Volume 93.2 fL (80.0-100.0); Monocytes # (auto) 0.6 10 ^3/uL (0-1.3); Monocytes % (auto) 6.7 % (0.0-12.0); Neutrophils # (auto) 3.6 10 ^3/uL (1.6-8.6); Neutrophils % (auto) 42.1 % (37.0-80.0); Nucleated Red Blood Cells % 0.1 %; Platelet Count (auto) 286 10^3/uL (140-450); Red Blood Cells 4.19 10^6/uL (4.0-5.20); Red Cell Distribution Width 13.4 % (11.8-14.3); White Blood Cell 8.6 10^3/uL (4.4-10.8)
[2024-09-26 06:01] LABS: Anion Gap 10 (5-15); Carbon Dioxide 20 mmol/L (20-31); Chloride 110 mmol/L (98-107); Potassium 3.6 mmol/L (3.5-5.1); Sodium 140 mmol/L (136-145)
[2024-09-26 06:03] LABS: Calcium 9.9 mg/dL (8.7-10.4)
[2024-09-26 06:07] LABS: Blood Urea Nitrogen 18 mg/dL (9-23); Glucose 94 mg/dL (74-106)
[2024-09-26] MEDS: FLUoxetine HCL 20 MG CAP PO SCH (11:21)
[2024-09-26] MEDS: CLOPIDOGREL BISULFATE 75 MG TAB PO SCH (11:21)
[2024-09-26] MEDS: PANTOPRAZOLE 40 MG TAB PO SCH (11:22)
[2024-09-26] MEDS: ASPirin-EC 81 mg tab PO SCH (11:22)
[2024-09-26] MEDS: LOSARTAN POTASSIUM 50 MG TAB PO SCH (11:23)
[2024-09-26] MEDS: DOCUSATE SOD 100 MG CAP PO SCH (11:23)
--- NOTE | 2024-09-26 13:15 | DVHPN2 ---
Reviewed: Care Plan, H&P, Labs, Medications, Previous Orders, Radiology Changes from previous H/P or p: No Changes Eyes: No Pain, No Vision change, No Conjunctivae inflammation, No Eyelid inflammation, No Other, No Redness ENT: No Ear pain, No Ear discharge, No Nose pain, No Nose discharge, No Nose congestion, No Mouth pain, No Mouth swelling, No Throat pain, No Throat swelling, No Other Cardiovascular: Chest Pain; No Palpitations, No Orthopnea, No Paroxysmal Noc. Dyspnea, No Edema, No Lt Headedness, No Other Respiratory: No Cough, No Dry; Shortness of breath; No SOB with excertion; W heezing; No Hemoptysis, No Pleuritic Pain, No Sputum, No Other Gastrointestinal: No Nausea, No Vomiting, No Abdominal Pain, No Diarrhea, No Constipation, No Melena, No Hematochezia, No Other Genitourinary: No Dysuria, No Frequency, No Incontinence, No Hematuria, No Retention, No Other Musculoskeletal: No other, No neck pain, No shoulder pain, No arm pain; back pain; No hand pain, No leg pain, No foot pain Skin: No Rash, No Lesions, No Jaundice, No Bruising, No Other Objective Vitals Vital Signs Date Time Temp Pulse Resp B/P (MAP) Pulse Ox O2 Delivery O2 Flow Rate FiO2 09/26/24 11:25 72 18 108/58 09/26/24 09:45 97.7 100 97.7 09/25/24 22:05 Nasal Cannula* 2 28 Intake/Output Intake and Output 09/26/24 07:00 Intake Total 700 ml Output Total 1575 ml Balance -875 ml Intake Oral 700 ml Output Urine Total 1575 ml Medications Current Medications Medications Dose Ordered Sig/Yesica Route Start Time Stop Time Status Last Admin Dose Admin Aspirin 81 mg DAILY PO 09/26/24 10:00 09/26/24 11:22 81 MG Carvedilol 3.125 mg Q12HR PO 09/25/24 22:00 09/26/24 11:22 3.125 MG Clopidogrel Bisulfate 75 mg DAILY PO 09/26/24 10:00 09/26/24 11:21 75 MG Acetaminophen/ Hydrocodone Bitart 1 tab Q6HP PO 09/25/24 18:00 09/26/24 12:53 1 TAB Losartan Potassium 50 mg DAILY PO 09/26/24 10:00 09/26/24 11:23 50 MG Pantoprazole Sodium 40 mg DAILY PO 09/26/24 10:00 09/26/24 11:22 40 MG Atorvastatin Calcium 10 mg HS PO 09/25/24 22:00 09/25/24 22:39 10 MG Fluoxetine HCl 40 mg BID PO 09/26/24 10:00 09/26/24 11:21 40 MG Acetaminophen 650 mg Q6HP PRN PO 09/25/24 15:45 Docusate Sodium 100 mg DAILY PO 09/26/24 10:00 09/26/24 11:23 100 MG Ondansetron HCl 4 mg Q4HP PRN IV 09/25/24 15:45 Nitroglycerin 0.4 mg Q5MINP PRN SL 09/25/24 15:45 Morphine Sulfate 2 mg Q30M PRN IV 09/25/24 15:45 Furosemide 40 mg BID IV 09/25/24 22:00 09/26/24 11:24 40 MG Diagnostic Test (Pha) 1 strip ACHS 09/25/24 17:00 09/26/24 11:50 1 STRIP Insulin Human Regular HS SC 09/25/24 22:00 09/25/24 22:40 4 UNITS Insulin Human Regular AC SC 09/25/24 17:00 09/26/24 11:54 9 UNITS Dextrose 50 ml UD PRN IV 09/25/24 15:45 Morphine Sulfate 1 mg Q4HP PRN IV 09/25/24 16:30 09/26/24 11:25 1 MG Laboratory Results Laboratory Tests 09/26/24 04:39 Chemistry Test 09/26/24 04:39 Calcium Level 9.9 mg/dL (8.7-10.4) Urinalysis Test 09/26/24 04:15 Urine Color Colorless (Yellow) Urine Clarity Turbid (Clear) H Urine pH 5.0 (5.0-9.0) Urine Specific [place] 1.009 (1.001-1.035) Urine Protein Negative (Negative) Urine Ketones Negative (Negative) Urine Blood 2+ /uL (Negative) H Urine Nitrite Negative (Negative) Urine Bilirubin Negative (Negative) Urine Urobilinogen Normal mg/dL (Negative) Urine Leukocyte Esterase 3+ /uL (Negative) Urine RBC 44 /hpf (0 - 4) Urine WBC 134 /hpf (0 - 5) Urine WBC Clumps Present /hpf (None Seen) Urine Squamous Epithelial Cells Few /hpf (<5) Urine Bacteria Few /hpf (None Seen) H Urine Hyaline Casts Many /lpf (0 - 2) Urine Mucus Few (None Seen) Urine Glucose Normal mg/dL (Normal) Microbiology Microbiology Date/Time Source Procedure Growth Status 09/25/24 23:35 Nose MRSA Screen - Final Complete Labs and/or images reviewed: Labs reviewed by me, Image(s) reviewed by me Assessment/Plan Assessment/Plan Chest pain rule out coronary artery disease: Troponin negative x3, treatment per ACS protocol Sepsis secondary to acute urinary tract infection: Blood cultures urine cultures Acute urinary tract infection: Rocephin -acute hypoxic respiratory failure: Oxygen by nasal came -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 ejection fraction 20% -NSTEMI, probably type 2 -coronary artery disease with previous stenting -chronic back pain -hypokalemia Anxiety: Xanax 1 mg PO TID Plan discussed with: Patient Date of Service: Sep 26, 2024 Billing Provider: MEL FUNEZ MD Common Visit Codes: [id number] INP/OBS CARE(HIGH) MEL FUNEZ MD Sep 26, 2024 13:15
[2024-09-26] MEDS: cefTRIAXone 1GM/50ML D5W 50 ML IV ONE (18:14)
[2024-09-27] VITALS (7 sets, daily range): BP systolic 99–112; BP diastolic 47–51; PULSE 61–83; RESP 16–18; TEMP 98–98.6; O2SAT 95–100
[2024-09-27 06:51] LABS: Alanine Aminotransferase 26 U/L (7-40); Alkaline Phosphatase 70 U/L (46-116); Anion Gap 7 (5-15); BUN/Creatinine Ratio 28.1 (10.0-20.0); Blood Urea Nitrogen 27 mg/dL (9-23); Calcium 9.8 mg/dL (8.7-10.4); Carbon Dioxide 23 mmol/L (20-31); Chloride 106 mmol/L (98-107); Glucose 181 mg/dL (74-106); Potassium 3.7 mmol/L (3.5-5.1); Sodium 136 mmol/L (136-145)
[2024-09-27 06:52] LABS: Albumin 4.4 g/dL (3.2-4.8); Aspartate Aminotransferase 19 U/L (13-40)
[2024-09-27 06:53] LABS: Bilirubin, Total 0.3 mg/dL (0.2-1.0); Total Protein 6.6 g/dL (5.7-8.2)
[2024-09-27] MEDS: cefTRIAXone 1GM/50ML D5W 50 ML IV SCH (09:06)
--- NOTE | 2024-09-27 09:51 | ECG ---
[facility] Test Date: 2024-09-25 Test Time: 13:31:37 Pat Name: FRANKLIN REYES Department: ER Room: [facility] A Gender: F Suspect Artist: INOCENCIO : 1955 Requested By: SHEILA EMERY Order Number: [id number] Reading MD: Myles Glover Measurements Intervals [place] Rate: 89 P: 33 HI: 165 QRS: -58 QRSD: 89 T: 52 QT: 376 QTc: 458 Interpretive Statements Sinus rhythm Probable left atrial enlargement Left anterior fascicular block Extensive anterior infarct, old Electronically Signed On 10-06-2024 12:44:26 PST by Myles Glover Please click the below link to view image of tracing.
--- NOTE | 2024-09-27 11:35 | DVHPN2 ---
Reviewed: Care Plan, H&P, Labs, Medications, Previous Orders, Radiology Changes from previous H/P or p: No Changes Eyes: No Pain, No Vision change, No Conjunctivae inflammation, No Eyelid inflammation, No Other, No Redness ENT: No Ear pain, No Ear discharge, No Nose pain, No Nose discharge, No Nose congestion, No Mouth pain, No Mouth swelling, No Throat pain, No Throat swelling, No Other Cardiovascular: Chest Pain; No Palpitations, No Orthopnea, No Paroxysmal Noc. Dyspnea, No Edema, No Lt Headedness, No Other Respiratory: No Cough, No Dry; Shortness of breath; No SOB with excertion; W heezing; No Hemoptysis, No Pleuritic Pain, No Sputum, No Other Gastrointestinal: No Nausea, No Vomiting, No Abdominal Pain, No Diarrhea, No Constipation, No Melena, No Hematochezia, No Other Genitourinary: No Dysuria, No Frequency, No Incontinence, No Hematuria, No Retention, No Other Musculoskeletal: No other, No neck pain, No shoulder pain, No arm pain; back pain; No hand pain, No leg pain, No foot pain Skin: No Rash, No Lesions, No Jaundice, No Bruising, No Other Objective Vitals Vital Signs Date Time Temp Pulse Resp B/P (MAP) Pulse Ox O2 Delivery O2 Flow Rate FiO2 09/27/24 09:08 109/57 09/27/24 09:08 79 09/27/24 08:50 98.6 16 100 98.6 09/26/24 20:00 Nasal Cannula* 3 32 Intake/Output Intake and Output 09/27/24 07:00 Intake Total 925 ml Output Total 1250 ml Balance -325 ml Intake Oral 875 ml IV Total 50 ml Output Urine Total 1250 ml Medications Current Medications Medications Dose Ordered Sig/Yesica Route Start Time Stop Time Status Last Admin Dose Admin Aspirin 81 mg DAILY PO 09/26/24 10:00 09/27/24 09:08 81 MG Carvedilol 3.125 mg Q12HR PO 09/25/24 22:00 09/26/24 11:22 3.125 MG Clopidogrel Bisulfate 75 mg DAILY PO 09/26/24 10:00 09/27/24 09:07 75 MG Acetaminophen/ Hydrocodone Bitart 1 tab Q6HP PO 09/25/24 18:00 09/27/24 05:51 1 TAB Losartan Potassium 50 mg DAILY PO 09/26/24 10:00 09/26/24 11:23 50 MG Pantoprazole Sodium 40 mg DAILY PO 09/26/24 10:00 09/27/24 09:07 40 MG Atorvastatin Calcium 10 mg HS PO 09/25/24 22:00 09/26/24 21:06 10 MG Fluoxetine HCl 40 mg BID PO 09/26/24 10:00 09/27/24 09:11 40 MG Acetaminophen 650 mg Q6HP PRN PO 09/25/24 15:45 Docusate Sodium 100 mg DAILY PO 09/26/24 10:00 09/27/24 09:07 100 MG Ondansetron HCl 4 mg Q4HP PRN IV 09/25/24 15:45 Nitroglycerin 0.4 mg Q5MINP PRN SL 09/25/24 15:45 Morphine Sulfate 2 mg Q30M PRN IV 09/25/24 15:45 Furosemide 40 mg BID IV 09/25/24 22:00 09/27/24 09:07 40 MG Diagnostic Test (Pha) 1 strip ACHS 09/25/24 17:00 09/27/24 06:26 1 STRIP Insulin Human Regular HS SC 09/25/24 22:00 09/25/24 22:40 4 UNITS Insulin Human Regular AC SC 09/25/24 17:00 09/26/24 11:54 9 UNITS Dextrose 50 ml UD PRN IV 09/25/24 15:45 Morphine Sulfate 1 mg Q4HP PRN IV 09/25/24 16:30 09/26/24 11:25 1 MG Ceftriaxone Sodium 50 ml @ 100 mls/hr DAILY@ IV 09/27/24 09:00 09/27/24 09:06 100 MLS/HR Laboratory Results Laboratory Tests 09/26/24 04:39 09/27/24 05:40 Chemistry Test 09/27/24 05:40 Albumin 4.4 g/dL (3.2-4.8) Calcium Level 9.8 mg/dL (8.7-10.4) Total Protein 6.6 g/dL (5.7-8.2) LFT Test 09/27/24 05:40 Alanine Aminotransferase (ALT) 26 U/L (7-40) Alkaline Phosphatase 70 U/L (46-116) Aspartate Amino Transferase (AST) 19 U/L (13-40) Total Bilirubin 0.3 mg/dL (0.2-1.0) Urinalysis Test 09/26/24 04:15 Urine Color Colorless (Yellow) Urine Clarity Turbid (Clear) H Urine pH 5.0 (5.0-9.0) Urine Specific [place] 1.009 (1.001-1.035) Urine Protein Negative (Negative) Urine Ketones Negative (Negative) Urine Blood 2+ /uL (Negative) H Urine Nitrite Negative (Negative) Urine Bilirubin Negative (Negative) Urine Urobilinogen Normal mg/dL (Negative) Urine Leukocyte Esterase 3+ /uL (Negative) Urine RBC 44 /hpf (0 - 4) Urine WBC 134 /hpf (0 - 5) Urine WBC Clumps Present /hpf (None Seen) Urine Squamous Epithelial Cells Few /hpf (<5) Urine Bacteria Few /hpf (None Seen) H Urine Hyaline Casts Many /lpf (0 - 2) Urine Mucus Few (None Seen) Urine Glucose Normal mg/dL (Normal) Microbiology Microbiology Date/Time Source Procedure Growth Status 09/25/24 23:35 Nose MRSA Screen - Final Complete Labs and/or images reviewed: Labs reviewed by me, Image(s) reviewed by me Assessment/Plan Assessment/Plan Chest pain rule out coronary artery disease: Troponin negative x3, treatment per ACS protocol Sepsis secondary to acute urinary tract infection: Blood cultures urine cultures Acute urinary tract infection: Rocephin -acute hypoxic respiratory failure: Oxygen by nasal came -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 Ricardo pending ejection fraction 20% -NSTEMI, probably type 2 -coronary artery disease with previous stenting -chronic back pain -hypokalemia Anxiety: Xanax 1 mg PO TID Plan discussed with: Patient My Orders Orders - MEL FUNEZ MD Procedure Category Date Status Time Blood Culture RAGHAV 09/26/24 In Process 13:17 Urine Bacterial RAGHAV 09/26/24 In Process Culture 13:17 Ceftriaxone 1gm/50ml PHA 09/27/24 In Process D5w (Rocephin) 09:00 * Cardiology Consult CONS 09/26/24 Transmitted 14:18 Date of Service: Sep 27, 2024 Billing Provider: MEL FUNEZ MD Common Visit Codes: [id number] INP/OBS CARE(HIGH) MEL FUNEZ MD Sep 27, 2024 11:35
--- NOTE | 2024-09-27 12:51 | DVHINCON2 ---
Date of service: Sep 27, 2024 History of Present Illness 68 yo F with hx of severe chf, cad s/p pci, mitral regurg, htn admitted for sob and UTI. pt admitted for ADHF. Past Medical History reviewed Family History: Cardiovascular disease G8 FATHER Diabetes during Diabetes mellitus G8 FATHER FH: dementia G8 MOTHER Hypertension G8 MOTHER Allergies: Coded Allergies: Iodine (Verified Allergy, Unknown, 04/04/18) Lorazepam (Verified Allergy, Unknown, 09/05/18) Home Meds Active Scripts Atorvastatin Calcium (Lipitor) 10 Mg Tab, 1 TAB PO DAILY for 30 Days, #30 TAB Prov:VARSHA LOFTON RESIDENT 08/29/24 Clopidogrel Bisulfate (CLOPIDOGREL) 75 Mg Tab, 75 MG PO DAILY for 30 Days, #30 TAB Prov:VARSHA LOFTON RESIDENT 08/29/24 Aspirin (Aspirin Low Dose) 81 Mg Tab, 81 MG PO DAILY for 30 Days, #30 TAB Prov:VARSHA LOFTON RESIDENT 08/29/24 Insulin Syringe/Needle U-100 (Bd Insulin Syringe Ultraf) 0.5 Mg/31 G Mis, MG XX TID, #100 2 Refills . Prov:KJ HERMOSILLO RESIDENT 05/17/24 Lancets (ACTI-YOLANDA LANCETS 28G) 28 G Mis, G XX TID PRN, #100 2 Refills Utilizes to measure blood glucose with glucometer. Prov:JK HERMOSILLO RESIDENT 05/17/24 Blood Glucose Monitoring Suppl (D-Care Glucometer Kit/Glu W/Device) 1 Kit Kit, KIT XX TID, #1 2 Refills Please measure blood globus via glucometer. At least 3 times a day. Preferably before each meal. Prov:KJ HERMOSILLO RESIDENT 05/17/24 Insulin Regular (Human) (Novolin R) 100 Unit/Ml Inj, 0 UNITS SC ACHS for 90 Days, #90 INJ Please use insulin Reglan 3 times a day before meal. Follow below instruction. Please check glucose via glucometer 3 times a day. If blood glucose is between 150 and 200 please administer 2 units of regular insulin. If blood glucose is between 200-250 please administer 4 units of regular insulin. If blood sugar is between 250 and 300 please administer 8 units of regular insulin. If blood sugar between 300-350 please administered 10 units of regular insulin. If blood sugars between 350 and 400 please administer 12 units of regular insulin. If blood sugars greater than [address]come to the hospital. Prov:KJ HERMOSILLO RESIDENT 05/17/24 Empagliflozin (Jardiance) 25 Mg Tab, 25 MG PO QAM for 30 Days, #30 TAB Prov:NUHA CORREIA MD 08/14/22 Carvedilol (COREG) 3.125 Mg Tab, 3.125 MG PO Q12HR for 30 Days, #60 TAB Prov:NUHA CORREIA MD 08/14/22 Reported Medications Furosemide (Furosemide) 40 Mg Tab, 1 TAB PO DAILY for 90 Days, #90 09/26/24 Fluoxetine Hcl (Fluoxetine Hcl) 40 Mg Cap, 40 MG PO BID, CAP 08/26/24 Hydrocodone-Acetaminophen (Hydrocodone Bitartrate/AC 10-325 mg) 1 Tab Tab, 1 TAB PO Q6HP, TAB 08/25/24 Pantoprazole Sodium Sesquihydr (Protonix) 40 Mg Tab, 20 MG PO DAILY 12/14/23 Losartan Potassium (Losartan Potassium) 50 Mg Tab, 1 TAB PO DAILY 12/14/23 Current Medications Current Medications Medications (Trade) Dose Ordered Sig/Yesica Route PRN Reason Start Time Stop Time Status Last Admin Ceftriaxone Sodium 50 ml @ 100 mls/hr DAILY@09 IV 09/27/24 09:00 09/27/24 09:06 Review of Systems 10 pt ros otherwise negative Vital Signs Vital Signs Date Time Temp Pulse Resp B/P (MAP) Pulse Ox O2 Delivery O2 Flow Rate FiO2 09/27/24 09:08 109/57 09/27/24 09:08 79 09/27/24 08:50 98.6 16 100 98.6 09/26/24 20:00 Nasal Cannula* 3 32 Physical Exam nad s1 s2 rrr ctab soft nt/nd trivia ledema Labs/Diagnostic Data Labs Test 09/27/24 11:32 09/27/24 05:40 09/26/24 04:39 09/26/24 04:15 Range/Units POC Glucose 303 H 70-106 mg/dl Sodium Level 136 136-145 mmol/L Potassium Level 3.7 3.5-5.1 mmol/L Chloride Level 106 98-107 mmol/L Carbon Dioxide Level 23 20-31 mmol/L Anion Gap 7 5-15 Blood Urea Nitrogen 27 H 9-23 mg/dL Creatinine 0.96 0.550-1.02 mg/dL Glomerular Filtration Rate Calc 64 >90 mL/min BUN/Creatinine Ratio 28.1 H 10.0-20.0 Serum Glucose 181 H 74-106 mg/dL Calcium Level 9.8 8.7-10.4 mg/dL Total Bilirubin 0.3 0.2-1.0 mg/dL Aspartate Amino Transferase (AST) 19 13-40 U/L Alanine Aminotransferase (ALT) 26 7-40 U/L Alkaline Phosphatase 70 46-116 U/L Total Protein 6.6 5.7-8.2 g/dL Albumin 4.4 3.2-4.8 g/dL White Blood Count 8.6 4.4-10.8 10^3/uL Red Blood Count 4.19 4.0-5.20 10^6/uL Hemoglobin 13.1 12.2-16.2 g/dL Hematocrit 39.1 36.0-46.0 % Mean Corpuscular Volume 93.2 80.0-100.0 fL Mean Corpuscular Hemoglobin 31.3 28.0-32.0 pg Mean Corpuscular Hemoglobin Concent 33.6 32.0-36.0 g/dL Red Cell Distribution Width 13.4 11.8-14.3 % Platelet Count 286 140-450 10^3/uL Mean Platelet Volume 7.3 6.9-10.8 fL Neutrophils (%) (Auto) 42.1 37.0-80.0 % Lymphocytes (%) (Auto) 48.7 10.0-50.0 % Monocytes (%) (Auto) 6.7 0.0-12.0 % Eosinophils (%) (Auto) 2.1 0.0-7.0 % Basophils (%) (Auto) 0.4 0.0-2.0 % Neutrophils # (Auto) 3.6 1.6-8.6 10 ^3/uL Lymphocytes # (Auto) 4.2 0.4-5.4 10 ^3/uL Monocytes # (Auto) 0.6 0-1.3 10 ^3/uL Eosinophils # (Auto) 0.2 0-0.8 10 ^3/uL Basophils # (Auto) 0 0-0.2 10 ^3/uL Nucleated Red Blood Cells 0.1 % Urine Color Colorless Yellow Urine Clarity Turbid H Clear Urine pH 5.0 5.0-9.0 Urine Specific [place] 1.009 1.001-1.035 Urine Protein Negative Negative Urine Ketones Negative Negative Urine Blood 2+ H Negative /uL Urine Nitrite Negative Negative Urine Bilirubin Negative Negative Urine Urobilinogen Normal Negative mg/dL Urine Leukocyte Esterase 3+ Negative /uL Urine RBC 44 0 - 4 /hpf Urine WBC 134 0 - 5 /hpf Urine WBC Clumps Present None Seen /hpf Urine Squamous Epithelial Cells Few <5 /hpf Urine Bacteria Few H None Seen /hpf Urine Hyaline Casts Many 0 - 2 /lpf Urine Mucus Few None Seen Urine Glucose Normal Normal mg/dL Test 09/25/24 21:30 09/25/24 10:28 Range/Units Troponin I High Sensitivity 31 </=34 ng/L B-Type Natriuretic Peptide 637.20 0-100 pg/mL Microbiology Date/Time Source Procedure Growth Status 09/25/24 23:35 Nose MRSA Screen - Final Complete Assessment acute on chronic systolic and diastolic HF NYHA class III CKD htn cad s/p pic HL uti Plan/Recommendation cont abx resume HF meds add verquvo 2.5 mg daily on DC pt needs home health, likely some of her issue is lack of home health for repeat admissions Plan discussed with: Patient KOLTON RAMOS MD Sep 27, 2024 12:51
--- NOTE | 2024-09-27 13:59 | CONS ---
Pharmacy Clinical Information: From [facility] Heart Failure Fallout Report, JenniferPadmini mendoza is a 68 year old female with PMH of CAD s/p PCI, DM, CKD, COPD, CHF (LVEF 25 - 30%), mitral regurgitation, and hx of recurrent UTI. Her home medications for heart failure include carvedilol, losartan, empagliflozin, and furosemide. Her inpatient medications include carvedilol, losartan, and furosemide. SGLT2i is not recommended due to hypotension and UTI. MRA is not recommended due to hypotension. Consider switching carvedilol to metoprolol succinate due to COPD. SISSY CORDERO PHARMACIST Sep 27, 2024 13:59
[2024-09-28] VITALS (8 sets, daily range): BP systolic 103–133; BP diastolic 42–60; PULSE 52–83; RESP 16–20; TEMP 97.7–98.9; O2SAT 97–99
--- NOTE | 2024-09-28 07:45 | DVHPN2 ---
Progress Note Date Seen: Sep 28, 2024 Medical Necessity Reason Pt with a Central, PICC or Fol: No Subjective Patient reports: Feels better Other Systems: diuresed Objective vital signs Vital Sign Date Time Temp Pulse Resp B/P (MAP) Pulse Ox O2 Delivery O2 Flow Rate FiO2 09/28/24 05:00 98.3 76 17 110/42 (64) 99 98.3 09/27/24 20:00 Nasal Cannula* 3 32 Total Intake and Output 09/27/24 09/27/24 09/28/24 15:00 23:00 07:00 Intake Total 50 ml 800 ml Output Total 1200 ml 500 ml Balance 50 ml -400 ml -500 ml medications Current Medications Medications Dose Ordered Sig/Yesica Route Start Time Stop Time Status Last Admin Dose Admin Aspirin 81 mg DAILY PO 09/26/24 10:00 09/27/24 09:08 81 MG Carvedilol 3.125 mg Q12HR PO 09/25/24 22:00 09/26/24 11:22 3.125 MG Clopidogrel Bisulfate 75 mg DAILY PO 09/26/24 10:00 09/27/24 09:07 75 MG Acetaminophen/ Hydrocodone Bitart 1 tab Q6HP PO 09/25/24 18:00 09/28/24 06:11 1 TAB Losartan Potassium 50 mg DAILY PO 09/26/24 10:00 09/26/24 11:23 50 MG Pantoprazole Sodium 40 mg DAILY PO 09/26/24 10:00 09/27/24 09:07 40 MG Atorvastatin Calcium 10 mg HS PO 09/25/24 22:00 09/27/24 23:04 10 MG Fluoxetine HCl 40 mg BID PO 09/26/24 10:00 09/27/24 09:11 40 MG Acetaminophen 650 mg Q6HP PRN PO 09/25/24 15:45 Docusate Sodium 100 mg DAILY PO 09/26/24 10:00 09/27/24 09:07 100 MG Ondansetron HCl 4 mg Q4HP PRN IV 09/25/24 15:45 Nitroglycerin 0.4 mg Q5MINP PRN SL 09/25/24 15:45 Morphine Sulfate 2 mg Q30M PRN IV 09/25/24 15:45 Furosemide 40 mg BID IV 09/25/24 22:00 09/27/24 09:07 40 MG Diagnostic Test (Pha) 1 strip ACHS 09/25/24 17:00 09/27/24 23:05 1 STRIP Insulin Human Regular HS SC 09/25/24 22:00 09/25/24 22:40 4 UNITS Insulin Human Regular AC SC 09/25/24 17:00 09/27/24 11:54 12 UNITS Dextrose 50 ml UD PRN IV 09/25/24 15:45 Morphine Sulfate 1 mg Q4HP PRN IV 09/25/24 16:30 09/26/24 11:25 1 MG Ceftriaxone Sodium 50 ml @ 100 mls/hr DAILY@09 IV 09/27/24 09:00 09/27/24 09:06 100 MLS/HR Examination: GENERAL:Abnormal, HEENT:Abnormal, LUNGS:Abnormal, CVS:Abnormal, ABDOMEN:Abnormal laboratory and microbiology Laboratory Tests 09/27/24 05:40 09/26/24 04:39 Test 09/27/24 05:40 Range/Units Serum Glucose 181 H 74-106 mg/dL Microbiology Date/Time Source Procedure Growth Status 09/26/24 18:30 Voided Urine Urine Culture - Preliminary Resulted 09/26/24 14:03 Blood Blood Culture - Preliminary NO GROWTH AFTER 24 HOURS OF INCUBATION. Resulted 09/25/24 23:35 Nose MRSA Screen - Final Complete Problem List/Assessment/Plan Problem List/Assessment/Plan severe chf htn cad s/p pci frailty ckd start verquov 2.5 mg po daily on dc pt needs home health otherwise continued readmission given inability to work, would not recommend advanced therapies cont dapt statin Plan discussed with: Patient Date of Service: Sep 28, 2024 Billing Provider: KOLTON RAMOS MD Common Visit Codes: NOT BILLABLE KOLTON RAMOS MD Sep 28, 2024 07:45
[2024-09-28] MEDS ORDERED: DEXTROSE (50%) 50ML SYRG IV PRN (12:45)
[2024-09-28] MEDS: InsuLIN REG 1unit/0.01ml Soln (100units/ml) SC SCH (16:36)
[2024-09-28] MEDS: ACCU-CHEK COMFORT CURVE STRIP VI SCH (16:37)
[2024-09-29] VITALS (9 sets, daily range): BP systolic 115–139; BP diastolic 46–64; PULSE 60–84; RESP 16–19; TEMP 97.6–98.6; O2SAT 96–100
[2024-09-29] MEDS: [UNRECOGNIZED DRUG - OTHER] PO SCH (09:50)
--- NOTE | 2024-09-29 11:06 | DVHPN2 ---
Reviewed: Care Plan, H&P, Labs, Medications, Previous Orders, Radiology Changes from previous H/P or p: No Changes Eyes: No Pain, No Vision change, No Conjunctivae inflammation, No Eyelid inflammation, No Other, No Redness ENT: No Ear pain, No Ear discharge, No Nose pain, No Nose discharge, No Nose congestion, No Mouth pain, No Mouth swelling, No Throat pain, No Throat swelling, No Other Cardiovascular: Chest Pain; No Palpitations, No Orthopnea, No Paroxysmal Noc. Dyspnea, No Edema, No Lt Headedness, No Other Respiratory: No Cough, No Dry; Shortness of breath; No SOB with excertion; W heezing; No Hemoptysis, No Pleuritic Pain, No Sputum, No Other Gastrointestinal: No Nausea, No Vomiting, No Abdominal Pain, No Diarrhea, No Constipation, No Melena, No Hematochezia, No Other Genitourinary: No Dysuria, No Frequency, No Incontinence, No Hematuria, No Retention, No Other Musculoskeletal: No other, No neck pain, No shoulder pain, No arm pain; back pain; No hand pain, No leg pain, No foot pain Skin: No Rash, No Lesions, No Jaundice, No Bruising, No Other Objective Vitals Vital Signs Date Time Temp Pulse Resp B/P (MAP) Pulse Ox O2 Delivery O2 Flow Rate FiO2 09/29/24 09:51 124/47 09/29/24 09:51 84 09/29/24 09:00 97.6 18 97 97.6 09/29/24 08:05 Nasal Cannula* 1 24 Intake/Output Intake and Output 09/29/24 07:00 Intake Total 1400 ml Output Total 3700 ml Balance -2300 ml Intake Oral 1350 ml IV Total 50 ml Output Urine Total 3700 ml Medications Current Medications Medications Dose Ordered Sig/Yesica Route Start Time Stop Time Status Last Admin Dose Admin Aspirin 81 mg DAILY PO 09/26/24 10:00 09/29/24 09:51 81 MG Carvedilol 3.125 mg Q12HR PO 09/25/24 22:00 09/29/24 09:51 3.125 MG Clopidogrel Bisulfate 75 mg DAILY PO 09/26/24 10:00 09/29/24 09:51 75 MG Acetaminophen/ Hydrocodone Bitart 1 tab Q6HP PO 09/25/24 18:00 09/29/24 08:32 1 TAB Losartan Potassium 50 mg DAILY PO 09/26/24 10:00 09/29/24 09:51 50 MG Pantoprazole Sodium 40 mg DAILY PO 09/26/24 10:00 09/29/24 09:52 40 MG Atorvastatin Calcium 10 mg HS PO 09/25/24 22:00 09/28/24 22:17 10 MG Fluoxetine HCl 40 mg BID PO 09/26/24 10:00 09/29/24 09:52 40 MG Acetaminophen 650 mg Q6HP PRN PO 09/25/24 15:45 Docusate Sodium 100 mg DAILY PO 09/26/24 10:00 09/27/24 09:07 100 MG Ondansetron HCl 4 mg Q4HP PRN IV 09/25/24 15:45 Nitroglycerin 0.4 mg Q5MINP PRN SL 09/25/24 15:45 Morphine Sulfate 2 mg Q30M PRN IV 09/25/24 15:45 Furosemide 40 mg BID IV 09/25/24 22:00 09/29/24 09:50 40 MG Morphine Sulfate 1 mg Q4HP PRN IV 09/25/24 16:30 09/28/24 09:53 1 MG Ceftriaxone Sodium 50 ml @ 100 mls/hr DAILY@09 IV 09/27/24 09:00 09/29/24 09:02 100 MLS/HR Patient Own Medication 2.5 mg DAILY PO 09/29/24 10:00 Diagnostic Test (Pha) 1 strip ACHS 09/28/24 17:00 09/29/24 07:00 1 STRIP Insulin Human Regular ACHS SC 09/28/24 17:00 09/29/24 08:17 6 UNITS Dextrose 50 ml UD PRN IV 09/28/24 12:45 Laboratory Results Laboratory Tests 09/26/24 04:39 09/27/24 05:40 Urinalysis Test 09/26/24 04:15 Urine Color Colorless (Yellow) Urine Clarity Turbid (Clear) H Urine pH 5.0 (5.0-9.0) Urine Specific [place] 1.009 (1.001-1.035) Urine Protein Negative (Negative) Urine Ketones Negative (Negative) Urine Blood 2+ /uL (Negative) H Urine Nitrite Negative (Negative) Urine Bilirubin Negative (Negative) Urine Urobilinogen Normal mg/dL (Negative) Urine Leukocyte Esterase 3+ /uL (Negative) Urine RBC 44 /hpf (0 - 4) Urine WBC 134 /hpf (0 - 5) Urine WBC Clumps Present /hpf (None Seen) Urine Squamous Epithelial Cells Few /hpf (<5) Urine Bacteria Few /hpf (None Seen) H Urine Hyaline Casts Many /lpf (0 - 2) Urine Mucus Few (None Seen) Urine Glucose Normal mg/dL (Normal) Microbiology Microbiology Date/Time Source Procedure Growth Status 09/26/24 18:30 Voided Urine Urine Culture - Final Escherichia coli Complete 09/26/24 14:03 Blood Blood Culture - Preliminary NO GROWTH AFTER 48 HOURS OF INCUBATION. 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 Ricardo appreciated ejection fraction 20%; recommended verquov 2.5 mg po daily on dc and home health or SNF -NSTEMI, probably type 2 -coronary artery disease with previous stenting -chronic back pain -hypokalemia Anxiety: Xanax 1 mg PO TID Physical therapy ordered Left message for patient's daughter Aaliyah [phone] to call back regarding discharge plan. Plan discussed with: Patient My Orders Orders - MEL FUNEZ MD Procedure Category Date Status Time (Nf) Verquov PHA 09/29/24 In Process 10:00 Pt Request For Service PT 09/28/24 Logged 11:58 Glucose Blood PHA 09/28/24 In Process (Accu-Chek Comfort 17:00 Insulin R (Human) PHA 09/28/24 In Process (Insulin R) 17:00 Dextrose 50% Syringe PHA 09/28/24 In Process 12:45 Date of Service: Sep 29, 2024 Billing Provider: MEL FUNEZ MD Common Visit Codes: [id number] INP/OBS CARE(HIGH) MEL FUNEZ MD Sep 29, 2024 11:06
--- NOTE | 2024-09-29 11:24 | DVHPN2 ---
Progress Note Date Seen: Sep 29, 2024 Medical Necessity Reason Pt with a Central, PICC or Fol: No Subjective Patient reports: Feels better Objective vital signs Vital Sign Date Time Temp Pulse Resp B/P (MAP) Pulse Ox O2 Delivery O2 Flow Rate FiO2 09/29/24 09:51 124/47 09/29/24 09:51 84 09/29/24 09:00 97.6 18 97 97.6 09/29/24 08:05 Nasal Cannula* 1 24 Total Intake and Output 09/28/24 09/28/24 09/29/24 15:00 23:00 07:00 Intake Total 50 ml 800 ml 550 ml Output Total 1600 ml 2100 ml Balance 50 ml -800 ml -1550 ml medications Current Medications Medications Dose Ordered Sig/Yesica Route Start Time Stop Time Status Last Admin Dose Admin Aspirin 81 mg DAILY PO 09/26/24 10:00 09/29/24 09:51 81 MG Carvedilol 3.125 mg Q12HR PO 09/25/24 22:00 09/29/24 09:51 3.125 MG Clopidogrel Bisulfate 75 mg DAILY PO 09/26/24 10:00 09/29/24 09:51 75 MG Acetaminophen/ Hydrocodone Bitart 1 tab Q6HP PO 09/25/24 18:00 09/29/24 08:32 1 TAB Losartan Potassium 50 mg DAILY PO 09/26/24 10:00 09/29/24 09:51 50 MG Pantoprazole Sodium 40 mg DAILY PO 09/26/24 10:00 09/29/24 09:52 40 MG Atorvastatin Calcium 10 mg HS PO 09/25/24 22:00 09/28/24 22:17 10 MG Fluoxetine HCl 40 mg BID PO 09/26/24 10:00 09/29/24 09:52 40 MG Acetaminophen 650 mg Q6HP PRN PO 09/25/24 15:45 Docusate Sodium 100 mg DAILY PO 09/26/24 10:00 09/27/24 09:07 100 MG Ondansetron HCl 4 mg Q4HP PRN IV 09/25/24 15:45 Nitroglycerin 0.4 mg Q5MINP PRN SL 09/25/24 15:45 Morphine Sulfate 2 mg Q30M PRN IV 09/25/24 15:45 Furosemide 40 mg BID IV 09/25/24 22:00 09/29/24 09:50 40 MG Morphine Sulfate 1 mg Q4HP PRN IV 09/25/24 16:30 09/28/24 09:53 1 MG Ceftriaxone Sodium 50 ml @ 100 mls/hr DAILY@09 IV 09/27/24 09:00 09/29/24 09:02 100 MLS/HR Patient Own Medication 2.5 mg DAILY PO 09/29/24 10:00 Diagnostic Test (Pha) 1 strip ACHS 09/28/24 17:00 09/29/24 07:00 1 STRIP Insulin Human Regular ACHS SC 09/28/24 17:00 09/29/24 08:17 6 UNITS Dextrose 50 ml UD PRN IV 09/28/24 12:45 Examination: GENERAL:Abnormal, LUNGS:Abnormal, CVS:Abnormal, ABDOMEN:Abnormal laboratory and microbiology Laboratory Tests 09/27/24 05:40 09/26/24 04:39 Test 09/27/24 05:40 Range/Units Serum Glucose 181 H 74-106 mg/dL Microbiology Date/Time Source Procedure Growth Status 09/26/24 18:30 Voided Urine Urine Culture - Final Escherichia coli Complete 09/26/24 14:03 Blood Blood Culture - Preliminary NO GROWTH AFTER 48 HOURS OF INCUBATION. Resulted 09/25/24 23:35 Nose MRSA Screen - Final Complete Problem List/Assessment/Plan Problem List/Assessment/Plan severe chf htn cad s/p pci frailty ckd start verquov 2.5 mg po daily on dc pt needs home health otherwise continued readmission given inability to work, would not recommend advanced therapies cont dapt statin Plan discussed with: Patient Date of Service: Sep 29, 2024 Billing Provider: KOLTON RAMOS MD Common Visit Codes: NOT BILLABLE KOLTON RAMOS MD Sep 29, 2024 11:24
[2024-09-30 05:00] VITALS: BP 112/50; PULSE 67; RESP 19; TEMP 97.1; O2SAT 99
[2024-09-30 08:00] VITALS: PULSE 64; PULSE 78; RESP 16; O2SAT 100
[2024-09-30 09:29] VITALS: BP 98/51; PULSE 78; RESP 16; TEMP 98.3; O2SAT 100
[2024-09-30] MEDS ORDERED: HYDR-4902 PO (10:54)
--- NOTE | 2024-09-30 11:02 | DVHDS2 ---
Discharge Summary Date of Admission Sep 25, 2024 at 15:34 Date of Discharge: Sep 30, 2024 Admitting Diagnosis Chest pain Wounds: None Labs/Diagnostic Data: Laboratory Results Test 09/30/24 06:43 09/27/24 05:40 09/26/24 04:39 09/26/24 04:15 POC Glucose 118 mg/dl (70-106) Sodium Level 136 mmol/L (136-145) Potassium Level 3.7 mmol/L (3.5-5.1) Chloride Level 106 mmol/L (98-107) Carbon Dioxide Level 23 mmol/L (20-31) Anion Gap 7 (5-15) Blood Urea Nitrogen 27 mg/dL (9-23) Creatinine 0.96 mg/dL (0.550-1.02) Glomerular Filtration Rate Calc 64 mL/min (>90) BUN/Creatinine Ratio 28.1 (10.0-20.0) Serum Glucose 181 mg/dL (74-106) Calcium Level 9.8 mg/dL (8.7-10.4) Total Bilirubin 0.3 mg/dL (0.2-1.0) Aspartate Amino Transferase (AST) 19 U/L (13-40) Alanine Aminotransferase (ALT) 26 U/L (7-40) Alkaline Phosphatase 70 U/L (46-116) Total Protein 6.6 g/dL (5.7-8.2) Albumin 4.4 g/dL (3.2-4.8) White Blood Count 8.6 10^3/uL (4.4-10.8) Red Blood Count 4.19 10^6/uL (4.0-5.20) Hemoglobin 13.1 g/dL (12.2-16.2) Hematocrit 39.1 % (36.0-46.0) Mean Corpuscular Volume 93.2 fL (80.0-100.0) Mean Corpuscular Hemoglobin 31.3 pg (28.0-32.0) Mean Corpuscular Hemoglobin Concent 33.6 g/dL (32.0-36.0) Red Cell Distribution Width 13.4 % (11.8-14.3) Platelet Count 286 10^3/uL (140-450) Mean Platelet Volume 7.3 fL (6.9-10.8) Neutrophils (%) (Auto) 42.1 % (37.0-80.0) Lymphocytes (%) (Auto) 48.7 % (10.0-50.0) Monocytes (%) (Auto) 6.7 % (0.0-12.0) Eosinophils (%) (Auto) 2.1 % (0.0-7.0) Basophils (%) (Auto) 0.4 % (0.0-2.0) Neutrophils # (Auto) 3.6 10 ^3/uL (1.6-8.6) Lymphocytes # (Auto) 4.2 10 ^3/uL (0.4-5.4) Monocytes # (Auto) 0.6 10 ^3/uL (0-1.3) Eosinophils # (Auto) 0.2 10 ^3/uL (0-0.8) Basophils # (Auto) 0 10 ^3/uL (0-0.2) Nucleated Red Blood Cells 0.1 % Urine Color Colorless (Yellow) Urine Clarity Turbid (Clear) Urine pH 5.0 (5.0-9.0) Urine Specific [place] 1.009 (1.001-1.035) Urine Protein Negative (Negative) Urine Ketones Negative (Negative) Urine Blood 2+ /uL (Negative) Urine Nitrite Negative (Negative) Urine Bilirubin Negative (Negative) Urine Urobilinogen Normal mg/dL (Negative) Urine Leukocyte Esterase 3+ /uL (Negative) Urine RBC 44 /hpf (0 - 4) Urine WBC 134 /hpf (0 - 5) Urine WBC Clumps Present /hpf (None Seen) Urine Squamous Epithelial Cells Few /hpf (<5) Urine Bacteria Few /hpf (None Seen) Urine Hyaline Casts Many /lpf (0 - 2) Urine Mucus Few (None Seen) Urine Glucose Normal mg/dL (Normal) Test 09/25/24 21:30 09/25/24 10:28 Troponin I High Sensitivity 31 ng/L (</=34) B-Type Natriuretic Peptide 637.20 pg/mL (0-100) Other Laboratory Tests 09/27/24 05:40 09/26/24 04:39 Brief Hx & Hospital Course: 68-year-old female with a history of chronic respiratory failure on home oxygen congestive heart failure coronary artery disease with a previous stenting chronic back pain on narcotics anxiety noncompliance came in complaining of chest pain. Troponin negative x3 seen by her frame catcher Dr. Ricardo advised to continue all previous home medications and advised to add VERQUOV 2.5 mg p.o. daily on discharge but unable to transmit the prescription as it is not in the system. Patient had non ST-elevation [place] probably type 2. Patient was treated with a TA CHF medications also had acute urinary tract infection treated with a Rocephin patient is being discharged home. Prescription for Stonewall transmitted to the pharmacy. Discussed with the patient's daughter and power of defense attorney Aaliyah at length on the phone and she advised the patient to go to [facility] as she can not take care of at home. But the patient refused to go to [facility] and requesting to be discharged home. RN Phoenix at bedside at the time of discharge. 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 Ricardo appreciated ejection fraction 20%; recommended verquov 2.5 mg po daily on dc and home health or SNF -NSTEMI, probably type 2 -coronary artery disease with previous stenting -chronic back pain -hypokalemia Anxiety: Xanax 1 mg PO TID Discharge Disposition: Home Discharge Instruct/Medications Diet: Cardiac 2g Na,low cholest Activity: Light activity Follow Up/Referral: Continue all your home medications Follow up with the primary Dr and frame catcher Dr. Ricardo Medications: [place]wall Transmitted to the pharmacy Dr Ricardo recommended VERQUOV 2.5 mg p.o. daily on discharge, unable to transmitted as it is not in the system 35 (Time taken for discharge summary 35 minutes) Discharge Statement: "Patient was advised to return to the ER or call 911 if any headaches, dizziness, shortness of breath, chest pain, abdominal pain, bleeding, fevers, or worsening of medical condition. Patient was counseled about treatment plan, medications, possible side effects, patientverbalized understanding. All questions were answered to the best of my ability. 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 Ricardo appreciated ejection fraction 20%; recommended verquov 2.5 mg po daily on dc and home health or SNF -NSTEMI, probably type 2 -coronary artery disease with previous stenting -chronic back pain -hypokalemia Anxiety: Xanax 1 mg PO TID Date of Service: Sep 30, 2024 Billing Provider: MEL FUNEZ MD Common Visit Codes: [id number] DISCH DAY >30min MEL FUNEZ MD Sep 30, 2024 11:02
[2024-09-30 11:18] VITALS: BP 98/51; PULSE 78; TEMP 36.8
[2024-09-30 14:00] VITALS: BP 103/51; PULSE 79; RESP 16; TEMP 98.6; O2SAT 100
[2024-09-30 14:01] VITALS: BP 103/51; PULSE 79; RESP 16; TEMP 98.6; O2SAT 100
== END 2024-09-30 16:13 | disposition home or self-care (01) | DRG 871 ==
LOC: ER 10:11 → EDBD 10:11 → TELE 15:34 → TELE-WESTW 22:04
PROVIDERS: ADMIT Hospitalist; ATTEND Family Medicine
DX: A41.9 Sepsis, unspecified organism (principal); I21.A1 Myocardial infarction type 2; I50.43 Acute on chronic combined systolic (congestive) and diastolic (congestive) heart failure; J96.21 Acute and chronic respiratory failure with hypoxia; N39.0 Urinary tract infection, site not specified; I13.0 Hypertensive heart and chronic kidney disease with heart failure and stage 1 through stage 4 chronic kidney disease, or unspecified chronic kidney disease; E11.65 Type 2 diabetes mellitus with hyperglycemia; F41.9 Anxiety disorder, unspecified; E87.6 Hypokalemia; E11.22 Type 2 diabetes mellitus with diabetic chronic kidney disease; J44.9 Chronic obstructive pulmonary disease, unspecified; I25.10 Atherosclerotic heart disease of native coronary artery without angina pectoris; F32.A Depression, unspecified; F17.210 Nicotine dependence, cigarettes, uncomplicated; G89.29 Other chronic pain; I34.0 Nonrheumatic mitral (valve) insufficiency; N18.9 Chronic kidney disease, unspecified; Z88.8 Allergy status to other drugs, medicaments and biological substances; Z91.041 Radiographic dye allergy status; Z87.11 Personal history of peptic ulcer disease; Z90.710 Acquired absence of both cervix and uterus; Z90.49 Acquired absence of other specified parts of digestive tract; Z95.5 Presence of coronary angioplasty implant and graft; Z83.3 Family history of diabetes mellitus; Z82.49 Family history of ischemic heart disease and other diseases of the circulatory system; Z99.81 Dependence on supplemental oxygen; Z79.891 Long term (current) use of opiate analgesic; Z91.199 Patient's noncompliance with other medical treatment and regimen due to unspecified reason
CPT/HCPCS: 36415; 71045; 80048; 80053; 81001; 82962; 83880; 84484; 85025; 87040; 87081; 87086; 87088; 87186; 93005; 96374; 97163; 99291; G0378; J1815

== ENCOUNTER 2024-10-23 06:16 | Inpatient (IN) | payer MEDICARE, MEDICAID ==
[~2024-10-23] VITALS: Ht 160 cm; Wt 64.0 kg
[2024-10-23] VITALS (7 sets, daily range): BP systolic 127–129; BP diastolic 69–72; PULSE 101–114; RESP 16–99; TEMP 98.5–98.6; O2SAT 95–98
[~2024-10-23 06:16] MED LIST changes: -FURO1TAB31 PO; +HYDR-4902 PO
--- NOTE | 2024-10-23 06:56 | ED.PDOC ---
SOB-HPI HPI Comments 68F BIBA w/ prior Hx of COPD, Anxiety, Pacemaker and Stentsx5 which may be associated to the c/c of SOB. EMS report that the family called for the pt, due from her having SOB which has been worsening for the past 3 days associated w/ CP as well. EMS reports that the pt was also complaining of BOYLE as well as supposed to be on 1L [place] at home but when they were on scene the pt, the pt was not on any oxygen. EMS note that the pt has been very non-compliant w/ her medications. PMHx of CAD, CKF, Depression, DM, HTN, VT, PUD, and UTI's. SHx of Appendectomy, Cholecystectomy, Tonsillectomy, Hernia Repair, Hysterectomy and PTCA. Denies chills, fever, N/V/D, or other associated symptoms, modifiers, or recent injuries at this time. Chief Complaint: Shortness of Breath Time Seen by MD: 06:20 Primary Care Provider: SABIHA Davis notes: Nurses Notes, Medical Center Director Notes, Medications, Allergies Information Source: Patient, Emergency Med Personnel Mode of Arrival: EMS Severity: Moderate Timing: Days Duration: Since onset, Days Context: Spontaneous Onset PE Risk Factors: None History of: COPD, Anxiety Prehospital treatment: Oxygen Associated Signs and Symptoms: Anxiety Quality: Aching Radiation: No Radiation Location: Substernal If cough with SOB: Non-Productive Past Medical History PAST MEDICAL HISTORY: Anxiety, CAD, CKF, COPD, Depression, DM, HTN, VT, PUD, UTI'S Surgical History: Appendectomy, Cholecystectomy, Hernia Repair, Hysterectomy, Pacemaker, PTCA, Tonsillectomy Surgical History (Other): Stents x5 HAT MAKER History: No Pertinent HAT MAKER History Family History Family History: Reviewed,noncontributory to illness, Unknown Social History Smoker: Unknown Alcohol: Unknown Drugs: Unknown Lives In: Home Constitutional: denies: chills, diaphoresis, fatigue, fever, malaise, sweats, weakness, others EENTM: denies: blurred vision, double vision, ear bleeding, ear discharge, ear drainage, ear pain, ear ringing, eye pain, eye redness, hearing loss, mouth pain , mouth swelling, nasal discharge, nose bleeding, nose congestion, nose pain, photophobia, tearing, throat pain, throat swelling, voice changes, others Respiratory: reports: shortness of breath; denies: cough, hemoptysis, orthopnea, SOB at rest, SOB with excertion, stridor, wheezing, others Cardiovascular: reports: chest pain; denies: dizzy spells, diaphoresis, Dyspnea on exertion, edema, irregular heart beat, left arm pain, lightheadedness, palpitations, PND, syncope, others Gastrointestinal: denies: abdomen distended, abdominal pain, blood streaked bowels, constipated, diarrhea, dysphagia, difficulty swallowing, hematemesis, melena, nausea, poor appetite, poor fluid intake, rectal bleeding, rectal pain, vomiting, others Genitourinary: denies: abnormal vagina bleeding, burning, dyspareunia, dysuria, flank pain, frequency, hematuria, incontinence, pain, , vagina discharge, urgency, others Neurological: reports: headache; denies: dizziness, fainting, left sided numbness, left sided weakness, numbness, paresthesia, pre-existing deficit, right sided numbness, right sided weakness, seizure, speech problems, tingling, tremors, weakness, others Musculoskeletal: denies: back pain, gout, joint pain, joint swelling, muscle pain, muscle stiffness, neck pain, others Integumetry: denies: bruises, change in color, change in hair/nails, dryness, laceration, lesions, lumps, rash, wounds, others Allergic/Immunocompromised: denies: Difficulty Healing, Frequent Infections, Hives, Itching, others Hematologic/Lymphatic: denies: anemia, blood clots, easy bleeding, easy bruising, swollen glands, others Endocrine: denies: excessive hunger, excessive sweating, excessive thirst, excessive urination, flushing, intolerance to cold, intolerance to heat, u nexplained weight gain, unexplained weight loss, others Psychiatric: denies: anxiety, bipolar disorder, depression, hopeless, panic disorder, schizophrenia, sleepless, suicidal, others All Other Systems: Reviewed and Negative Physical Exam General Appearance: Moderate Distress, Normal HEENT: Normal ENT Inspection, Pharynx Normal, TMs Normal Neck: Full Range of Motion, Non-Tender, Normal, Normal Inspection Respiratory: Chest Non-Tender, No Accessory Muscle Use, No Respiratory Distress, Other (Coarse breath sounds) Cardiovascular: No Edema, No JVD, No Murmur, No Gallop, Normal Peripheral Pulses, Regular Rate/Rhythm Breast Exam: Deferred Gastrointestinal: No Organomegaly, Non Tender, No Pulsatile Mass, Normal Bowel Sounds, Soft Genitalia: Deferred Pelvic: Deferred Rectal: Deferred Extremities: No calf tenderness, Normal capillary refill, Normal inspection, Normal range of motion, Non-tender, No pedal edema Musculoskeletal : Apperance: Normal Neurologic: Alert, foamite mixer II-XII nml as Tested, No Motor Deficits, Normal Affect, Normal Mood, No Sensory Deficits Cerebellar Function: NOT DONE Reflexes: NOT DONE Skin: Dry, Normal Color, Warm Peripheral Pulses: 3+ Radial (R), 3+ Radial (L) Lymphatic: No Adenopathy Was a procedure done? Was a procedure done?: No Differential Dx Differential Diagnosis: Anxiety, Asthma, Bronchitis, CHF, COPD X-Ray, Labs, Meds, VS Vital Signs Date Time Temp Pulse Resp B/P (MAP) Pulse Ox O2 Delivery O2 Flow Rate FiO2 10/23/24 06:26 112 10/23/24 06:16 97.7 109 18 155/86 (109) 98 Patient alert. Complaining of shortness a breath. Tachycardia. Blood pressure elevated. Saturation pristine on room air. Reviewed her previous visit. History of CHF. Unknown whether she is compliant with her medication. Was given Lasix. Explained to the patient. Continue cardiac monitoring. Time of 1ST Reevaluation: 06:50 Reevaluation 1ST: Unchanged Patient Education/Counseling: Diagnosis, Treatment, Prognosis Family Education/Counseling: No Family Present Departure 1 Departure Time of Disposition: 07:20 Impression: Primary Impression: CHF (congestive heart failure) Qualified Codes: I50.43 - Acute on chronic combined systolic (congestive) and diastolic (congestive) heart failure Disposition: ADMITTED INPATIENT Admit to: Med Surg Condition: Guarded Critical Care Note Critical Care Time?: Yes (45 min-critical care time only) Stability Stability form required: No Heart Score Heart Score: Heart Score Response (Comments) Value History Slightly Suspicious 0 EKG Normal 0 Age >65 2 Risk Factors >3 or Hx ASHD 2 Troponin Normal limit 0 Total 4 I personally scribed for SALOMON LEW MD ([email or web address]) on 10/23/24 at 06:56. Electronically submitted by Desmond Clay ([email or web address]). SALOMON LEW MD Oct 23, 2024 06:56
[2024-10-23 08:18] LABS: Basophils # (auto) 0 10 ^3/uL (0-0.2); Basophils % (auto) 0.3 % (0.0-2.0); Eosinophils # (auto) 0 10 ^3/uL (0-0.8); Eosinophils % (auto) 0.5 % (0.0-7.0); Hematocrit 39.1 % (36.0-46.0); Lymphocytes # (auto) 1.6 10 ^3/uL (0.4-5.4); Lymphocytes % (auto) 18.8 % (10.0-50.0); Mean Corpuscular Hemoglobin 30.3 pg (28.0-32.0); Mean Corpuscular Hgb Conc. 33.2 g/dL (32.0-36.0); Mean Corpuscular Volume 91.2 fL (80.0-100.0); Monocytes # (auto) 0.5 10 ^3/uL (0-1.3); Monocytes % (auto) 5.5 % (0.0-12.0); Neutrophils # (auto) 6.3 10 ^3/uL (1.6-8.6); Neutrophils % (auto) 74.9 % (37.0-80.0); Platelet Count (auto) 365 10^3/uL (140-450); Red Blood Cells 4.29 10^6/uL (4.0-5.20); Red Cell Distribution Width 13.7 % (11.8-14.3); White Blood Cell 8.4 10^3/uL (4.4-10.8)
[2024-10-23 08:25] LABS: Anion Gap 10 (5-15); Carbon Dioxide 22 mmol/L (20-31); Chloride 102 mmol/L (98-107); Potassium 3.8 mmol/L (3.5-5.1)
[2024-10-23 08:26] LABS: Calcium 10.1 mg/dL (8.7-10.4)
[2024-10-23 08:31] LABS: Blood Urea Nitrogen 11 mg/dL (9-23)
[2024-10-23 08:35] LABS: Glucose 398 mg/dL (74-106); Sodium 134 mmol/L (136-145)
[2024-10-23] MEDS: HYDROcodone-ACET 5/325MG TAB PO PRN ×2 (09:16→16:00)
[2024-10-23] MEDS: ENOXAPARIN SOD 60 MG/0.6 ML SYRINGE SC ONE (09:16)
[2024-10-23] MEDS: HYDROcodone-ACET 5/325MG TAB ONE (09:19)
[2024-10-23] MEDS ORDERED: IPRATROPIUM BROM 0.5 MG/2.5ML INH SOL NEB PRN (10:15)
[2024-10-23] MEDS ORDERED: ALBUTEROL SULF 2.5 MG/0.5ML(0.5%) NEB SOLN NEB PRN (10:15)
[2024-10-23] MEDS ORDERED: ATOR10TA52 PO (10:24)
[2024-10-23] MEDS ORDERED: NITROGLYCERIN 0.4 MG SL TAB SL PRN (10:30)
[2024-10-23] MEDS ORDERED: MORPHINE SULFATE INJ 2 MG/ml SYRG IV PRN (10:30)
[2024-10-23] MEDS ORDERED: DEXTROSE (50%) 50ML SYRG IV PRN (10:30)
[2024-10-23] MEDS ORDERED: hydrALAZINE HCL 20 MG/ML VL IV PRN (10:45)
--- NOTE | 2024-10-23 10:46 | DVHHP2 ---
History of Present Illness Reason for Visit: Shortness of breath History of Present Illness This 68-year-old female presents in the ED via EMS with a chief complaint of shortness of breath. The patient reports progressive shortness of breath associated with dyspnea, orthopnea, and sharp chest pain that is worse on exertion started a few days ago. Upon reviewing medical records the patient was hospitalized in this facility multiple times with similar complaint in the past few months. The patient states seen her beta tester Dr. Ricardo three weeks ago for a hospital follow-up. The patient reports has been taking her diuretics and the rest of her medication as prescribed. The patient with past medical history of COPD on O2 at home, CHF with 25% EF, CAD s/p pci, PPM, hypertension, diabetes, CKD, tobacco use. Past Medical History As stated in HPI Past Surgical History PCI Family History Reviewed, non-contributory to the management of this case. Past Social History The patient lives at home, denies smoking, alcohol or illicit drugs abuse. Review of Systems Constitutional: Yes: Malaise; No: Fever, Chills, Sweats, Weakness, Other Eyes: No: Pain, Vision change, Conjunctivae inflammation, Eyelid inflammation, Other, Redness ENT: No: Ear pain, Ear discharge, Nose pain, Nose discharge, Nose congestion, Mouth pain, Mouth swelling, Throat pain, Throat swelling, Other Respiratory: Shortness of breath, SOB with excertion; No: Cough, Dry, Wheezing, Hemoptysis, Pleuritic Pain, Sputum, Wheezing, Other Cardiovascular: Chest Pain, Orthopnea, Paroxysmal Noc. Dyspnea; No: Palpitations, Edema, Lt Headedness, Other Gastrointestinal: No: Nausea, Vomiting, Abdominal Pain, Diarrhea, Constipation, Melena, Hematochezia, Other Genitourinary: No Dysuria, No Frequency, No Incontinence, No Hematuria, No Retention, No Other Musculoskeletal: No: other, neck pain, shoulder pain, arm pain, back pain, hand pain, leg pain, foot pain Skin: No: Rash, Lesions, Jaundice, Bruising, Other Neurological: No: Weakness, Numbness, Incoordination, Change in speech, Confusion, Seizures, Other Allergies: Coded Allergies: Iodine (Verified Allergy, Unknown, 04/04/18) Lorazepam (Verified Allergy, Unknown, 09/05/18) Medications Current Medications Medications Dose Ordered Sig/Yesica Route Start Time Stop Time Status Last Admin Dose Admin Acetaminophen/ Hydrocodone Bitart 1 tab Q4HPRN PRN PO 10/23/24 09:00 10/23/24 09:16 1 TAB Furosemide 60 mg DAILY IV 10/24/24 10:00 UNV Albuterol 2.5 mg Q4HPRN PRN NEB 10/23/24 10:15 UNV Albuterol 2.5 mg Q6HR NEB 10/23/24 12:00 UNV Ipratropium [place] 0.5 mg Q4HPRN PRN NEB 10/23/24 10:15 UNV Ipratropium [place] 0.5 mg Q6HR NEB 10/23/24 12:00 UNV Aspirin 81 mg DAILY PO 10/24/24 10:00 UNV Carvedilol 3.125 mg Q12HR PO 10/23/24 22:00 UNV Clopidogrel Bisulfate 75 mg DAILY PO 10/24/24 10:00 UNV Losartan Potassium 50 mg DAILY PO 10/24/24 10:00 UNV Pantoprazole Sodium 20 mg DAILY PO 10/24/24 10:00 UNV Patient Own Medication 1 tab DAILY PO 10/24/24 10:00 UNV Patient Own Medication 25 mg QAM PO 10/24/24 07:00 UNV Patient Own Medication 40 mg BID PO 10/23/24 22:00 UNV Diagnostic Test (Pha) 1 strip ACHS 10/23/24 11:30 UNV Insulin Human Regular ACHS SC 10/23/24 11:30 UNV Dextrose 50 ml UD PRN IV 10/23/24 10:30 UNV Acetaminophen/ Hydrocodone Bitart 1 tab Q4HP PRN PO 10/23/24 10:30 UNV Acetaminophen 650 mg Q6HP PRN PO 10/23/24 10:30 UNV Morphine Sulfate 2 mg Q4HPRN PRN IV 10/23/24 10:30 UNV Nitroglycerin 0.4 mg Q5MINP PRN SL 10/23/24 10:30 UNV Morphine Sulfate 2 mg Q30M PRN IV 10/23/24 10:30 UNV Insulin Glargine 10 units HS SC 10/23/24 22:00 UNV Exam Vital Signs Vital Signs Date Time Temp Pulse Resp B/P (MAP) Pulse Ox O2 Delivery O2 Flow Rate FiO2 10/23/24 10:32 109 25 142/87 (105) 94 10/23/24 08:19 98.6 98.6 10/23/24 08:19 Room Air General Appearance: Alert, Oriented X3, Cooperative, mild distress HEENT: Atraumatic, PERRLA, EOMI Respiratory: Other (Diminished lung sounds) Cardiovascular: Regular rate, Normal S1, Other (GALVAN, no edema) Abdominal: Normal bowel sounds, Soft, No tenderness Extremities: No clubbing, No cyanosis, No edema, Normal pulses Skin: No rashes, No breakdown, No significant lesion Neuro: Normal gait, Normal speech, Strength at 5/5 X4 ext Psych/Mental Status: Mental status NL Labs/Xrays Labs Test 10/23/24 09:15 10/23/24 08:00 Range/Units Troponin I High Sensitivity 46 *H </=34 ng/L White Blood Count 8.4 4.4-10.8 10^3/uL Red Blood Count 4.29 4.0-5.20 10^6/uL Hemoglobin 13.0 12.2-16.2 g/dL Hematocrit 39.1 36.0-46.0 % Mean Corpuscular Volume 91.2 80.0-100.0 fL Mean Corpuscular Hemoglobin 30.3 28.0-32.0 pg Mean Corpuscular Hemoglobin Concent 33.2 32.0-36.0 g/dL Red Cell Distribution Width 13.7 11.8-14.3 % Platelet Count 365 140-450 10^3/uL Mean Platelet Volume 7.0 6.9-10.8 fL Neutrophils (%) (Auto) 74.9 37.0-80.0 % Lymphocytes (%) (Auto) 18.8 10.0-50.0 % Monocytes (%) (Auto) 5.5 0.0-12.0 % Eosinophils (%) (Auto) 0.5 0.0-7.0 % Basophils (%) (Auto) 0.3 0.0-2.0 % Neutrophils # (Auto) 6.3 1.6-8.6 10 ^3/uL Lymphocytes # (Auto) 1.6 0.4-5.4 10 ^3/uL Monocytes # (Auto) 0.5 0-1.3 10 ^3/uL Eosinophils # (Auto) 0 0-0.8 10 ^3/uL Basophils # (Auto) 0 0-0.2 10 ^3/uL Nucleated Red Blood Cells 0.0 % Sodium Level 134 L 136-145 mmol/L Potassium Level 3.8 3.5-5.1 mmol/L Chloride Level 102 98-107 mmol/L Carbon Dioxide Level 22 20-31 mmol/L Anion Gap 10 5-15 Blood Urea Nitrogen 11 9-23 mg/dL Creatinine 0.92 0.550-1.02 mg/dL Glomerular Filtration Rate Calc 67 >90 mL/min BUN/Creatinine Ratio 12.0 10.0-20.0 Serum Glucose 398 H 74-106 mg/dL Calcium Level 10.1 8.7-10.4 mg/dL B-Type Natriuretic Peptide 1914.62 0-100 pg/mL Assessment/Plan Assessment/Plan #Acute on chronic systolic and diastolic heart failure #HFrEF, EF 25% # GALVAN # Presence of PPM Admit to telemetry unit IV diuretics F/C --Strict intake and output, daily weight Cardiology with Dr. Ricardo Continue heart failure medication # NSTEMI likely type 2 # atypical chest pain #CAD s/p PCI Plavix, asa, statins Trend troponin # hypertension Carvedilol Furosemide Hydralazine as needed Monitor BP DASH diet # acute on chronic respiratory failure # COPD exacerbation Med neb treatment O2 supplement #CKD stage 2 Monitor # diabetes type 2 with hyperglycemia, A1C 7.8 ISS Lantus Check A1c # depression, anxiety Fluoxetine # GERD PPI # Ex-tobacco user #?Medical noncompliance Multiple hospitalization in the last few months Counseled DVT and PPI prophylaxis Medical plan discussed with patient and RN Plan discussed with: Patient My Orders Orders - LYNETTE WILEY TECHNICAL ADJUSTER Procedure Category Date Status Time B-Type Natriuretic LAB 10/24/24 Verified Peptide 04:00 Furosemide Injection PHA 10/24/24 Logged (Lasix Injection) 10:00 Magnesium LAB 10/23/24 In Process 10:10 Furosemide Injection PHA 10/23/24 Logged (Lasix Injection) 10:15 Insert Perrin Catheter DIANA 10/23/24 In Process 10:10 Albuterol Medneb PHA 10/23/24 Logged (Ventolin Medneb) 10:15 Albuterol Medneb PHA 10/23/24 Logged (Ventolin Medneb) 12:00 Ipratropium Medneb PHA 10/23/24 Logged (Atrovent Medneb) 10:15 Ipratropium Medneb PHA 10/23/24 Logged (Atrovent Medneb) 12:00 Aspirin Enteric PHA 10/24/24 Logged Coated Tablet 10:00 Carvedilol Tablet PHA 10/23/24 Logged (Coreg Tablet) 22:00 Clopidogrel Bisulfate PHA 10/24/24 Logged (Plavix) 10:00 Losartan Tablet PHA 10/24/24 Logged (Cozaar Tablet) 10:00 Pantoprazole Tablet PHA 10/24/24 Logged (Protonix Tablet) 10:00 (Nf) Atorvastatin PHA 10/24/24 Logged Calcium (Lipitor) 10:00 (Nf) Empagliflozin PHA 10/24/24 Logged (Jardiance) 07:00 (Nf) Fluoxetine Hcl PHA 10/23/24 Logged 22:00 Glucose Blood PHA 10/23/24 Logged (Accu-Chek Comfort 11:30 Insulin R (Human) PHA 10/23/24 Logged (Insulin R) 11:30 Dextrose 50% Syringe PHA 10/23/24 Logged 10:30 * Cardiology Consult CONS 10/23/24 Transmitted 10:25 Admit ADMIT 10/23/24 Transmitted 10:25 Code Status CODE 10/23/24 Transmitted 10:25 Hydrocodone-Acet PHA 10/23/24 Logged 5/325mg Tab ([place] 10:30 Fall Risk Precautions DIANA 10/23/[address] 10:25 Complete Blood Count LAB 10/24/24 Verified 04:00 Comprehensive LAB 10/24/24 Verified Metabolic Panel 04:00 Cardiac DIET 10/23/24 Transmitted Diet-2gna,Lofat,Lochol Lunch Condition: Fair DIANA 10/23/24 In Process 10:25 Acetaminophen Tablet PHA 10/23/24 Logged (Tylenol Tablet) 10:30 Morphine Sulfate PHA 10/23/24 Logged Injection 10:30 Nitroglycerin PHA 10/23/24 Logged Sublingual (Ntrostat 10:30 Morphine Sulfate PHA 10/23/24 Logged Injection 10:30 Stat Ekg For Chest DIANA 10/23/24 In Process Pain 10:25 Notify Of Changes DIANA 10/23/24 In Process From Base 10:25 Dye Penetrant Testing Technician For DIANA 10/23/24 In Process 24 Hours 10:25 Emergency Dysrhythmia DIANA 10/23/24 In Process Protocol 10:25 Rhythm Strips Once DIANA 10/23/24 In Process Every Shift 10:25 Oxygen By Nasal RT 10/23/24 Transmitted Cannula 10:25 Insulin Lantus PHA 10/23/24 Logged (Glargine) (Lantus) 22:00 Hemoglobin A1c LAB 10/23/24 In Process 10:25 Troponin-I Hs LAB 10/24/24 Verified 04:00 Electrocardigram EKG 10/24/24 Logged 04:00 Chest Portable XY 10/24/24 Logged 04:00 Daily Weight DIANA 10/23/24 In Process 10:25 Strict I & O DIANA 10/23/24 In Process 10:25 Date of Service: Oct 23, 2024 Billing Provider: LYNETTE WILEY Common Visit Codes: [id number] INP/OBS CARE (HIGH) LYNETTE WILEYP Oct 23, 2024 10:46
--- NOTE | 2024-10-23 10:50 | DVH ---
CHEST RADIOGRAPH Indication: sob Technique: Single frontal view of the chest was obtained COMPARISON: XY CHEST PORTABLE on DOS: 09/25/24 Comments: There is rightward rotation. FINDINGS: Lines and Tubes: Left-sided dual-chamber pacemaker / ICD is in place. Lungs: There is right mid/lower lung consolidation. Hazy left lower lung opacity. Pleura: Indistinctness of the bilateral hemidiaphragms . No pneumothorax. Cardiomediastinal contours: Cardiac silhouette is mostly obscured due to lung opacities. Bones: Unremarkable IMPRESSION: 1. Right mid/lower lung consolidation is concerning for pneumonia. There is also left basilar consoli dation/atelectasis. 2. Probable small bilateral pleural effusions.
[2024-10-23] MEDS: FUROSEMIDE 20 MG/2 ML VIAL IV ONE (10:56)
[2024-10-23] MEDS: FUROSEMIDE 40 MG/4 ML VIAL IV ONE (11:01)
[2024-10-23] MEDS: ACCU-CHEK COMFORT CURVE STRIP VI SCH (11:48)
[2024-10-23] MEDS: InsuLIN REG 1unit/0.01ml Soln (100units/ml) SC SCH (11:53)
[2024-10-23 11:55] LABS: Urine Bacteria FEW /hpf (None Seen); Urine Blood 2+ /uL (Negative); Urine Clarity Ex.Turbid (Clear); Urine Color Colorless (Yellow); Urine Protein, UAD 1+ (Negative); Urine Specific Gravity 1.014 (1.001-1.035); Urine Urobilinogen Normal (Negative); Urine WBC 2252 /hpf (0 - 5); Urine WBC Clumps PRESENT /hpf (None Seen); Urine pH 5.5 (5.0-9.0)
[2024-10-23] MEDS: IPRATROPIUM BROM 0.5 MG/2.5ML INH SOL NEB SCH (13:35)
[2024-10-23] MEDS: ALBUTEROL SULF 2.5 MG/0.5ML(0.5%) NEB SOLN NEB SCH (13:35)
[2024-10-23] MEDS: MORPHINE SULFATE INJ 2 MG/ml SYRG IV PRN (17:38)
[2024-10-23] MEDS: INSULIN LANTUS (GLARGINE) 1 /0.01ml (100units/ml) SC SCH (23:37)
[2024-10-23] MEDS: CARVEDILOL 3.125 MG TAB PO SCH (23:49)
[2024-10-23] MEDS: FLUoxetine HCL 20 MG CAP PO SCH (23:50)
[2024-10-24] VITALS (16 sets, daily range): BP systolic 89–123; BP diastolic 49–74; PULSE 88–102; RESP 16–99; TEMP 97.8–98.3; O2SAT 95–100
[2024-10-24 05:56] LABS: Basophils # (auto) 0 10 ^3/uL (0-0.2); Basophils % (auto) 0.3 % (0.0-2.0); Eosinophils # (auto) 0.1 10 ^3/uL (0-0.8); Eosinophils % (auto) 1.4 % (0.0-7.0); Hematocrit 35.1 % (36.0-46.0); Lymphocytes # (auto) 2.1 10 ^3/uL (0.4-5.4); Lymphocytes % (auto) 29.3 % (10.0-50.0); Mean Corpuscular Hemoglobin 31.1 pg (28.0-32.0); Mean Corpuscular Hgb Conc. 34.1 g/dL (32.0-36.0); Mean Corpuscular Volume 91.2 fL (80.0-100.0); Monocytes # (auto) 0.5 10 ^3/uL (0-1.3); Monocytes % (auto) 7.1 % (0.0-12.0); Neutrophils # (auto) 4.5 10 ^3/uL (1.6-8.6); Neutrophils % (auto) 61.9 % (37.0-80.0); Nucleated Red Blood Cells % 0.1 %; Platelet Count (auto) 308 10^3/uL (140-450); Red Blood Cells 3.85 10^6/uL (4.0-5.20); White Blood Cell 7.3 10^3/uL (4.4-10.8)
[2024-10-24 06:11] LABS: Alanine Aminotransferase 22 U/L (7-40); Albumin 4.1 g/dL (3.2-4.8); Alkaline Phosphatase 98 U/L (46-116); Anion Gap 10 (5-15); BUN/Creatinine Ratio 20.7 (10.0-20.0); Blood Urea Nitrogen 23 mg/dL (9-23); Calcium 9.7 mg/dL (8.7-10.4); Carbon Dioxide 24 mmol/L (20-31); Chloride 102 mmol/L (98-107); Potassium 4.2 mmol/L (3.5-5.1); Sodium 136 mmol/L (136-145)
[2024-10-24 06:12] LABS: Bilirubin, Total 0.5 mg/dL (0.2-1.0); Total Protein 6.2 g/dL (5.7-8.2)
[2024-10-24 06:33] LABS: Aspartate Aminotransferase 10 U/L (13-40); Glucose 357 mg/dL (74-106)
--- NOTE | 2024-10-24 06:52 | DVH ---
CHEST RADIOGRAPH Indication: SOB Technique: Single frontal view of the chest was obtained Comparison: XY CHEST PORTABLE on DOS: 10/23/24, XY CHEST PORTABLE on DOS: 09/25/24, XY CHEST PORTABLE on DOS: 09/16/24, XY CHEST PORTABLE on DOS: 09/15/24, XY CHEST PORTABLE on DOS: 09/13/24, XY CHEST POR TABLE on DOS: 10/23/24 FINDINGS: Lines and Tubes: Left-sided dual-chamber pacemaker / ICD is in place. Lungs: There is right mid/lower lung consolidation. Hazy left lower lung opacity. Pleura: Indistinctness of the bilateral hemidiaphragms . No pneumothorax. Cardiomediastinal contours: Cardiac silhouette is mostly obscured due to lung opacities. Bones: Unremarkable IMPRESSION: 1. Right mid/lower lung consolidation is concerning for pneumonia. There is also left basilar consoli dation/atelectasis. 2. Probable small bilateral pleural effusions.
[2024-10-24] MEDS: EMPAGLIFLOZIN 10 MG TAB PO SCH (06:57)
--- NOTE | 2024-10-24 08:22 | DVHINCON2 ---
Date of service: Oct 24, 2024 Referring Physician 10 pt joelle otherwise negative History of Present Illness History of Present Illness This 68-year-old female presents in the ED via EMS with a chief complaint of shortness of breath. The patient reports progressive shortness of breath associated with dyspnea, orthopnea, and sharp chest pain that is worse on exertion started a few days ago. Upon reviewing medical records the patient was hospitalized in this facility multiple times with similar complaint in the past few months. The patient states seen her radio frequency engineer Dr. Ramos three weeks ago for a hospital follow-up. The patient reports has been taking her diuretics and the rest of her medication as prescribed. The patient with past medical history of COPD on O2 at home, CHF with 25% EF, CAD s/p pci, PPM, hypertension, diabetes, CKD, tobacco use. Past Medical History As stated in HPI Past Surgical History PCI Family History Reviewed, non-contributory to the management of this case. Past Social History The patient lives at home, denies smoking, alcohol or illicit drugs abuse. Past Medical History reviewed Family History: Cardiovascular disease G8 FATHER Diabetes during Diabetes mellitus G8 FATHER FH: dementia G8 MOTHER Hypertension G8 MOTHER Allergies: Coded Allergies: Iodine (Verified Allergy, Unknown, 04/04/18) Lorazepam (Verified Allergy, Unknown, 09/05/18) Home Meds Active Scripts Hydrocodone-Acetaminophen (Hydrocodone Bitartrate/AC 5-325 mg) 1 Tab Tab, 1 TAB PO QID PRN, #40 TAB Prov:MEL FUNEZ MD 09/30/24 Atorvastatin Calcium (Lipitor) 10 Mg Tab, 1 TAB PO DAILY for 30 Days, #30 TAB Prov:VARHSA LOFTON RESIDENT 08/29/24 Clopidogrel Bisulfate (CLOPIDOGREL) 75 Mg Tab, 75 MG PO DAILY for 30 Days, #30 TAB Prov:VARSHA LOFTON RESIDENT 08/29/24 Aspirin (Aspirin Low Dose) 81 Mg Tab, 81 MG PO DAILY for 30 Days, #30 TAB Prov:VARSHA LOFTON RESIDENT 08/29/24 Insulin Syringe/Needle U-100 (Bd Insulin Syringe Ultraf) 0.5 Mg/31 G Mis, MG XX TID, #100 2 Refills . Prov:KJ HERMOSILLO RESIDENT 05/17/24 Lancets (ACTI-YOLANDA LANCETS 28G) 28 G Mis, G XX TID PRN, #100 2 Refills Utilizes to measure blood glucose with glucometer. Prov:KJ HERMOSILLO RESIDENT 05/17/24 Blood Glucose Monitoring Suppl (D-Care Glucometer Kit/Glu W/Device) 1 Kit Kit, KIT XX TID, #1 2 Refills Please measure blood globus via glucometer. At least 3 times a day. Preferably before each meal. Prov:KJ HERMOSILLO RESIDENT 05/17/24 Insulin Regular (Human) (Novolin R) 100 Unit/Ml Inj, 0 UNITS SC ACHS for 90 Days, #90 INJ Please use insulin Reglan 3 times a day before meal. Follow below instruction. Please check glucose via glucometer 3 times a day. If blood glucose is between 150 and 200 please administer 2 units of regular insulin. If blood glucose is between 200-250 please administer 4 units of regular insulin. If blood sugar is between 250 and 300 please administer 8 units of regular insulin. If blood sugar between 300-350 please administered 10 units of regular insulin. If blood sugars between 350 and 400 please administer 12 units of regular insulin. If blood sugars greater than 400 please talk to /come to the hospital. Prov:KJ HERMOSILLO RESIDENT 05/17/24 Empagliflozin (Jardiance) 25 Mg Tab, 25 MG PO QAM for 30 Days, #30 TAB Prov:NUHA CORREIA MD 08/14/22 Carvedilol (COREG) 3.125 Mg Tab, 3.125 MG PO Q12HR for 30 Days, #60 TAB Prov:NUHA CORREIA MD 08/14/22 Reported Medications Atorvastatin Calcium (ATORVASTATIN CALCIUM) 10 Mg Tab, 1 TAB PO DAILY 10/23/24 Furosemide (Furosemide) 40 Mg Tab, 1 TAB PO DAILY for 90 Days, #90 09/26/24 Fluoxetine Hcl (Fluoxetine Hcl) 40 Mg Cap, 40 MG PO BID, CAP 08/26/24 Hydrocodone-Acetaminophen (Hydrocodone Bitartrate/AC 10-325 mg) 1 Tab Tab, 1 TAB PO Q6HP, TAB 08/25/24 Pantoprazole Sodium Sesquihydr (Protonix) 40 Mg Tab, 20 MG PO DAILY 12/14/23 Losartan Potassium (Losartan Potassium) 50 Mg Tab, 1 TAB PO DAILY 12/14/23 Current Medications Current Medications Medications (Trade) Dose Ordered Sig/Yesica Route PRN Reason Start Time Stop Time Status Last Admin Acetaminophen/ Hydrocodone Bitart ([place] 5/325MG Tab) 1 tab Q4HPRN PRN PO SEVERE PAIN (7-10 PAIN SCALE) 10/23/24 09:00 10/23/24 10:47 DC 10/23/24 09:16 Furosemide (Lasix Injection) 60 mg DAILY IV 10/24/24 10:00 Albuterol (Ventolin Medneb) 2.5 mg Q4HPRN PRN NEB SHORTNESS OF BREATH 10/23/24 10:15 Albuterol (Ventolin Medneb) 2.5 mg Q6HR NEB 10/23/24 12:00 10/24/24 06:02 Ipratropium [place] (Atrovent Medneb) 0.5 mg Q4HPRN PRN NEB SHORTNESS OF BREATH 10/23/24 10:15 Ipratropium [place] (Atrovent Medneb) 0.5 mg Q6HR NEB 10/23/24 12:00 10/24/24 06:02 Aspirin (Ecotrin Enteric Coated Tablet) 81 mg DAILY PO 10/24/24 10:00 Carvedilol (Coreg Tablet) 3.125 mg Q12HR PO 10/23/24 22:00 10/23/24 23:49 Clopidogrel Bisulfate (Plavix) 75 mg DAILY PO 10/24/24 10:00 Losartan Potassium (Cozaar Tablet) 50 mg DAILY PO 10/24/24 10:00 Pantoprazole Sodium (Protonix Tablet) 20 mg DAILY PO 10/24/24 10:00 Atorvastatin Calcium (Lipitor) 10 mg DAILY PO 10/24/24 10:00 Empaglifozin (Jardiance) 25 mg QAM PO 10/24/24 07:00 10/24/24 06:57 Fluoxetine HCl (PROzac CAPSULE) 40 mg BID PO 10/23/24 22:00 Diagnostic Test (Pha) (Accu-Chek Comfort Curve T) 1 strip ACHS 10/23/24 11:30 10/23/24 23:33 Insulin Human Regular (InsuLIN R) ACHS SC 10/23/24 11:30 10/24/24 06:59 Dextrose 50 ml UD PRN IV Blood Sugar LESS THAN 60 10/23/24 10:30 Acetaminophen/ Hydrocodone Bitart ([place] 5/325MG Tab) 1 tab Q4HP PRN PO MODERATE PAIN (4-6 PAIN SCALE) 10/23/24 10:30 10/24/24 03:30 Acetaminophen (Tylenol Tablet) 650 mg Q6HP PRN PO PAIN SCALE 1-3 OR TEMP>100.4 10/23/24 10:30 Morphine Sulfate 2 mg Q4HPRN PRN IV SEVERE PAIN (7-10 PAIN SCALE) 10/23/24 10:30 10/24/24 06:58 Nitroglycerin (Ntrostat Sublingual) 0.4 mg Q5MINP PRN SL FOR CHEST PAIN 10/23/24 10:30 Morphine Sulfate 2 mg Q30M PRN IV FOR CHEST PAIN 10/23/24 10:30 Insulin Glargine (Lantus) 10 units HS SC 10/23/24 22:00 10/23/24 23:37 Hydralazine HCl (Apresoline Injection) 10 mg Q6HP PRN IV SBP>150 10/23/24 10:45 Review of Systems 10 pt ros otherwise negative Vital Signs Vital Signs Date Time Temp Pulse Resp B/P (MAP) Pulse Ox O2 Delivery O2 Flow Rate FiO2 10/24/24 06:58 94 14 110/62 10/24/24 05:00 98.0 99 98.0 10/24/24 00:08 Nasal Cannula* 2 28 Labs/Diagnostic Data Labs Test 10/24/24 06:46 10/24/24 05:20 10/23/24 11:34 10/23/24 08:00 Range/Units POC Glucose 334 H 70-106 mg/dl White Blood Count 7.3 4.4-10.8 10^3/uL Red Blood Count 3.85 L 4.0-5.20 10^6/uL Hemoglobin 12.0 L 12.2-16.2 g/dL Hematocrit 35.1 #L 36.0-46.0 % Mean Corpuscular Volume 91.2 80.0-100.0 fL Mean Corpuscular Hemoglobin 31.1 28.0-32.0 pg Mean Corpuscular Hemoglobin Concent 34.1 32.0-36.0 g/dL Red Cell Distribution Width 14.0 11.8-14.3 % Platelet Count 308 140-450 10^3/uL Mean Platelet Volume 7.1 6.9-10.8 fL Neutrophils (%) (Auto) 61.9 37.0-80.0 % Lymphocytes (%) (Auto) 29.3 10.0-50.0 % Monocytes (%) (Auto) 7.1 0.0-12.0 % Eosinophils (%) (Auto) 1.4 0.0-7.0 % Basophils (%) (Auto) 0.3 0.0-2.0 % Neutrophils # (Auto) 4.5 1.6-8.6 10 ^3/uL Lymphocytes # (Auto) 2.1 0.4-5.4 10 ^3/uL Monocytes # (Auto) 0.5 0-1.3 10 ^3/uL Eosinophils # (Auto) 0.1 0-0.8 10 ^3/uL Basophils # (Auto) 0 0-0.2 10 ^3/uL Nucleated Red Blood Cells 0.1 % Sodium Level 136 136-145 mmol/L Potassium Level 4.2 3.5-5.1 mmol/L Chloride Level 102 98-107 mmol/L Carbon Dioxide Level 24 20-31 mmol/L Anion Gap 10 5-15 Blood Urea Nitrogen 23 # 9-23 mg/dL Creatinine 1.11 H 0.550-1.02 mg/dL Glomerular Filtration Rate Calc 53 >90 mL/min BUN/Creatinine Ratio 20.7 H 10.0-20.0 Serum Glucose 357 H 74-106 mg/dL Calcium Level 9.7 8.7-10.4 mg/dL Total Bilirubin 0.5 0.2-1.0 mg/dL Aspartate Amino Transferase (AST) 10 L 13-40 U/L Alanine Aminotransferase (ALT) 22 7-40 U/L Alkaline Phosphatase 98 46-116 U/L Troponin I High Sensitivity 56 *H </=34 ng/L B-Type Natriuretic Peptide 1327.97 0-100 pg/mL Total Protein 6.2 5.7-8.2 g/dL Albumin 4.1 3.2-4.8 g/dL Urine Color Colorless Yellow Urine Clarity Ex.turbid Clear Urine pH 5.5 5.0-9.0 Urine Specific [place] 1.014 1.001-1.035 Urine Protein 1+ H Negative Urine Ketones Negative Negative Urine Blood 2+ H Negative /uL Urine Nitrite Negative Negative Urine Bilirubin Negative Negative Urine Urobilinogen Normal Negative mg/dL Urine Leukocyte Esterase 3+ Negative /uL Urine RBC 90 0 - 4 /hpf Urine WBC 2252 0 - 5 /hpf Urine WBC Clumps Present None Seen /hpf Urine Squamous Epithelial Cells None seen <5 /hpf Urine Bacteria Few H None Seen /hpf Urine Glucose 4+ H Normal mg/dL Hemoglobin A1c 9.3 H <5.7 % A1C Magnesium Level 2.2 1.6-2.6 mg/dL Assessment acute on chronic systolic and diastolic class IV HF ckd htn cad s/p pci mitral regurg Plan/Recommendation iv lasix cont HF meds added verquvo as outpt would not qualify for biv icd little therapeutic options given severe chf and lack of mobility/ ambulation Plan discussed with: Patient KOLTON RAMOS MD Oct 24, 2024 08:22
[2024-10-24] MEDS: FUROSEMIDE 100 MG/10ML VIAL IV SCH (08:56)
[2024-10-24] MEDS: LOSARTAN POTASSIUM 50 MG TAB PO SCH (08:59)
[2024-10-24] MEDS: ATORVASTATIN 20 MG TAB PO SCH (09:00)
[2024-10-24] MEDS: ASPirin-EC 81 mg tab PO SCH (09:00)
[2024-10-24] MEDS: CLOPIDOGREL BISULFATE 75 MG TAB PO SCH (09:00)
[2024-10-24] MEDS: PANTOPRAZOLE 40 MG TAB PO SCH (09:01)
--- NOTE | 2024-10-24 13:11 | DVHPN2 ---
Changes from previous H/P or p: No Changes Eyes: No Pain, No Vision change, No Conjunctivae inflammation, No Eyelid inflammation, No Other, No Redness ENT: No Ear pain, No Ear discharge, No Nose pain, No Nose discharge, No Nose congestion, No Mouth pain, No Mouth swelling, No Throat pain, No Throat swelling, No Other Cardiovascular: Chest Pain; No Palpitations; Orthopnea, Paroxysmal Noc. Dyspnea ; No Edema, No Lt Headedness, No Other Respiratory: No Cough, No Dry; Shortness of breath, SOB with excertion; No Wheezing, No Hemoptysis, No Pleuritic Pain, No Sputum, No Other Gastrointestinal: No Nausea, No Vomiting, No Abdominal Pain, No Diarrhea, No Constipation, No Melena, No Hematochezia, No Other Genitourinary: No Dysuria, No Frequency, No Incontinence, No Hematuria, No Retention, No Other Musculoskeletal: No other, No neck pain, No shoulder pain, No arm pain, No back pain, No hand pain, No leg pain, No foot pain Skin: No Rash, No Lesions, No Jaundice, No Bruising, No Other Objective Vitals Vital Signs Date Time Temp Pulse Resp B/P (MAP) Pulse Ox O2 Delivery O2 Flow Rate FiO2 10/24/24 12:57 98.0 95 16 98/49 (65) 98 98.0 10/24/24 10:00 Nasal Cannula 2.0 10/24/24 10:00 28 Intake/Output Intake and Output 10/24/24 07:00 Intake Total 830 ml Output Total 900 ml Balance -70 ml Intake Oral 830 ml Output Urine Total 900 ml Medications Current Medications Medications Dose Ordered Sig/Yesica Route Start Time Stop Time Status Last Admin Dose Admin Furosemide 60 mg DAILY IV 10/24/24 10:00 10/24/24 08:56 60 MG Albuterol 2.5 mg Q4HPRN PRN NEB 10/23/24 10:15 Albuterol 2.5 mg Q6HR NEB 10/23/24 12:00 10/24/24 11:38 2.5 MG Ipratropium [place] 0.5 mg Q4HPRN PRN NEB 10/23/24 10:15 Ipratropium [place] 0.5 mg Q6HR NEB 10/23/24 12:00 10/24/24 11:37 0.5 MG Aspirin 81 mg DAILY PO 10/24/24 10:00 10/24/24 09:00 81 MG Carvedilol 3.125 mg Q12HR PO 10/23/24 22:00 10/24/24 08:59 3.125 MG Clopidogrel Bisulfate 75 mg DAILY PO 10/24/24 10:00 10/24/24 09:00 75 MG Losartan Potassium 50 mg DAILY PO 10/24/24 10:00 10/24/24 08:59 50 MG Pantoprazole Sodium 20 mg DAILY PO 10/24/24 10:00 10/24/24 09:01 20 MG Atorvastatin Calcium 10 mg DAILY PO 10/24/24 10:00 10/24/24 09:00 10 MG Empaglifozin 25 mg QAM PO 10/24/24 07:00 10/24/24 06:57 25 MG Fluoxetine HCl 40 mg BID PO 10/23/24 22:00 10/24/24 09:02 40 MG Diagnostic Test (Pha) 1 strip ACHS 10/23/24 11:30 10/24/24 11:30 1 STRIP Insulin Human Regular ACHS SC 10/23/24 11:30 10/24/24 13:01 6 UNITS Dextrose 50 ml UD PRN IV 10/23/24 10:30 Acetaminophen/ Hydrocodone Bitart 1 tab Q4HP PRN PO 10/23/24 10:30 10/24/24 09:01 1 TAB Acetaminophen 650 mg Q6HP PRN PO 10/23/24 10:30 Morphine Sulfate 2 mg Q4HPRN PRN IV 10/23/24 10:30 10/24/24 06:58 2 MG Nitroglycerin 0.4 mg Q5MINP PRN SL 10/23/24 10:30 Morphine Sulfate 2 mg Q30M PRN IV 10/23/24 10:30 Insulin Glargine 10 units HS SC 10/23/24 22:00 10/23/24 23:37 10 UNITS Hydralazine HCl 10 mg Q6HP PRN IV 10/23/24 10:45 Laboratory Results Laboratory Tests 10/24/24 05:20 Chemistry Test 10/24/24 05:20 Albumin 4.1 g/dL (3.2-4.8) Calcium Level 9.7 mg/dL (8.7-10.4) Total Protein 6.2 g/dL (5.7-8.2) Cardiac Markers Test 10/24/24 05:20 B-Type Natriuretic Peptide 1327.97 pg/mL (0-100) LFT Test 10/24/24 05:20 Alanine Aminotransferase (ALT) 22 U/L (7-40) Alkaline Phosphatase 98 U/L (46-116) Aspartate Amino Transferase (AST) 10 U/L (13-40) L Total Bilirubin 0.5 mg/dL (0.2-1.0) Urinalysis Test 10/23/24 11:34 Urine Color Colorless (Yellow) Urine Clarity Ex.turbid (Clear) Urine pH 5.5 (5.0-9.0) Urine Specific [place] 1.014 (1.001-1.035) Urine Protein 1+ (Negative) H Urine Ketones Negative (Negative) Urine Blood 2+ /uL (Negative) H Urine Nitrite Negative (Negative) Urine Bilirubin Negative (Negative) Urine Urobilinogen Normal mg/dL (Negative) Urine Leukocyte Esterase 3+ /uL (Negative) Urine RBC 90 /hpf (0 - 4) Urine WBC 2252 /hpf (0 - 5) Urine WBC Clumps Present /hpf (None Seen) Urine Squamous Epithelial Cells None seen /hpf (<5) Urine Bacteria Few /hpf (None Seen) H Urine Glucose 4+ mg/dL (Normal) H Labs and/or images reviewed: Labs reviewed by me, Image(s) reviewed by me Assessment/Plan Assessment/Plan Chest pain rule out coronary artery disease: Troponin negative x3, treatment per ACS protocol acute hypoxic respiratory failure: Oxygen by nasal came 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
--- NOTE | 2024-10-24 15:08 | ECG ---
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
[2024-10-25] VITALS (10 sets, daily range): BP systolic 86–138; BP diastolic 39–82; PULSE 57–94; RESP 12–18; TEMP 97.1–98.7; O2SAT 94–99
--- NOTE | 2024-10-25 10:29 | DVHPN2 ---
Reviewed: Care Plan, H&P, Labs, Medications, Previous Orders, Radiology Changes from previous H/P or p: No Changes Eyes: No Pain, No Vision change, No Conjunctivae inflammation, No Eyelid inflammation, No Other, No Redness ENT: No Ear pain, No Ear discharge, No Nose pain, No Nose discharge, No Nose congestion, No Mouth pain, No Mouth swelling, No Throat pain, No Throat swelling, No Other Cardiovascular: Chest Pain; No Palpitations; Orthopnea, Paroxysmal Noc. Dyspnea ; No Edema, No Lt Headedness, No Other Respiratory: No Cough, No Dry; Shortness of breath, SOB with excertion; No Wheezing, No Hemoptysis, No Pleuritic Pain, No Sputum, No Other Gastrointestinal: No Nausea, No Vomiting, No Abdominal Pain, No Diarrhea, No Constipation, No Melena, No Hematochezia, No Other Genitourinary: No Dysuria, No Frequency, No Incontinence, No Hematuria, No Retention, No Other Musculoskeletal: No other, No neck pain, No shoulder pain, No arm pain, No back pain, No hand pain, No leg pain, No foot pain Skin: No Rash, No Lesions, No Jaundice, No Bruising, No Other Objective Vitals Vital Signs Date Time Temp Pulse Resp B/P (MAP) Pulse Ox O2 Delivery O2 Flow Rate FiO2 10/25/24 09:33 99 16 107/51 10/25/24 09:00 97.6 97 97.6 10/25/24 06:40 Nasal Cannula 2.0 10/25/24 06:40 28 Intake/Output Intake and Output 10/25/24 07:00 Intake Total 1962 ml Output Total 2025 ml Balance -63 ml Intake Oral 1962 ml Output Urine Total 2025 ml Medications Current Medications Medications Dose Ordered Sig/Yesica Route Start Time Stop Time Status Last Admin Dose Admin Furosemide 60 mg DAILY IV 10/24/24 10:00 10/25/24 09:27 60 MG Albuterol 2.5 mg Q4HPRN PRN NEB 10/23/24 10:15 Albuterol 2.5 mg Q6HR NEB 10/23/24 12:00 10/24/24 11:38 2.5 MG Ipratropium [place] 0.5 mg Q4HPRN PRN NEB 10/23/24 10:15 Ipratropium [place] 0.5 mg Q6HR NEB 10/23/24 12:00 10/24/24 11:37 0.5 MG Aspirin 81 mg DAILY PO 10/24/24 10:00 10/25/24 09:30 81 MG Carvedilol 3.125 mg Q12HR PO 10/23/24 22:00 10/24/24 21:20 3.125 MG Clopidogrel Bisulfate 75 mg DAILY PO 10/24/24 10:00 10/25/24 09:28 75 MG Losartan Potassium 50 mg DAILY PO 10/24/24 10:00 10/25/24 09:29 50 MG Pantoprazole Sodium 20 mg DAILY PO 10/24/24 10:00 10/25/24 09:29 20 MG Atorvastatin Calcium 10 mg DAILY PO 10/24/24 10:00 10/25/24 09:30 10 MG Empaglifozin 25 mg QAM PO 10/24/24 07:00 10/25/24 06:52 25 MG Fluoxetine HCl 40 mg BID PO 10/23/24 22:00 10/25/24 09:30 40 MG Diagnostic Test (Pha) 1 strip ACHS 10/23/24 11:30 10/25/24 06:52 1 STRIP Insulin Human Regular ACHS SC 10/23/24 11:30 10/24/24 21:35 3 UNITS Dextrose 50 ml UD PRN IV 10/23/24 10:30 Acetaminophen/ Hydrocodone Bitart 1 tab Q4HP PRN PO 10/23/24 10:30 10/24/24 17:47 1 TAB Acetaminophen 650 mg Q6HP PRN PO 10/23/24 10:30 Morphine Sulfate 2 mg Q4HPRN PRN IV 10/23/24 10:30 10/25/24 09:33 2 MG Nitroglycerin 0.4 mg Q5MINP PRN SL 10/23/24 10:30 Morphine Sulfate 2 mg Q30M PRN IV 10/23/24 10:30 Insulin Glargine 10 units HS SC 10/23/24 22:00 10/24/24 21:35 10 UNITS Hydralazine HCl 10 mg Q6HP PRN IV 10/23/24 10:45 Laboratory Results Laboratory Tests 10/24/24 05:20 Urinalysis Test 10/23/24 11:34 Urine Color Colorless (Yellow) Urine Clarity Ex.turbid (Clear) Urine pH 5.5 (5.0-9.0) Urine Specific [place] 1.014 (1.001-1.035) Urine Protein 1+ (Negative) H Urine Ketones Negative (Negative) Urine Blood 2+ /uL (Negative) H Urine Nitrite Negative (Negative) Urine Bilirubin Negative (Negative) Urine Urobilinogen Normal mg/dL (Negative) Urine Leukocyte Esterase 3+ /uL (Negative) Urine RBC 90 /hpf (0 - 4) Urine WBC 2252 /hpf (0 - 5) Urine WBC Clumps Present /hpf (None Seen) Urine Squamous Epithelial Cells None seen /hpf (<5) Urine Bacteria Few /hpf (None Seen) H Urine Glucose 4+ mg/dL (Normal) H Microbiology Microbiology Date/Time Source Procedure Growth Status 10/23/24 23:20 Nose MRSA Screen - Final Complete Labs and/or images reviewed: Labs reviewed by me, Image(s) reviewed by me Assessment/Plan Assessment/Plan Chest pain rule out coronary artery disease: Troponin negative x3, treatment per ACS protocol cardiology consult by Dr. Ricardo appreciated Acute hypoxic respiratory failure: Oxygen by nasal canula Acute on chronic decompensated systolic and diastolic heart failure : Cardiology consult by Dr. Ricardo appreciated ejection fraction 20%; recommended added Verquvo as a outpatient NSTEMI, probably type 2 coronary artery disease with previous stenting chronic back pain Presence of pacemaker Hypokalemia Depression Anxiety: Xanax 1 mg PO TID Physical therapy ordered Laura test ordered Flu test ordered Time spent 65 minutes Patient is full code Advanced care planning time 20 mts Plan discussed with: Patient Date of Service: Oct 25, 2024 Billing Provider: MEL FUNEZ MD Common Visit Codes: [id number] INP/OBS CARE(HIGH) MEL FUNEZ MD Oct 25, 2024 10:29
--- NOTE | 2024-10-25 13:00 | DVHPN2 ---
Progress Note Date Seen: Oct 25, 2024 Medical Necessity Reason Pt with a Central, PICC or Fol: No Objective vital signs Vital Sign Date Time Temp Pulse Resp B/P (MAP) Pulse Ox O2 Delivery O2 Flow Rate FiO2 10/25/24 12:42 94 116/59 10/25/24 10:03 16 10/25/24 10:00 97 Nasal Cannula 2.0 10/25/24 10:00 28 10/25/24 09:00 97.6 97.6 Total Intake and Output 10/24/24 10/24/24 10/25/24 15:00 23:00 07:00 Intake Total 422 ml 1200 ml 340 ml Output Total 1550 ml 475 ml Balance 422 ml -350 ml -135 ml medications Current Medications Medications Dose Ordered Sig/Yesica Route Start Time Stop Time Status Last Admin Dose Admin Furosemide 60 mg DAILY IV 10/24/24 10:00 10/25/24 09:27 60 MG Albuterol 2.5 mg Q4HPRN PRN NEB 10/23/24 10:15 Albuterol 2.5 mg Q6HR NEB 10/23/24 12:00 10/24/24 11:38 2.5 MG Ipratropium [place] 0.5 mg Q4HPRN PRN NEB 10/23/24 10:15 Ipratropium [place] 0.5 mg Q6HR NEB 10/23/24 12:00 10/24/24 11:37 0.5 MG Aspirin 81 mg DAILY PO 10/24/24 10:00 10/25/24 09:30 81 MG Carvedilol 3.125 mg Q12HR PO 10/23/24 22:00 10/25/24 11:42 3.125 MG Clopidogrel Bisulfate 75 mg DAILY PO 10/24/24 10:00 10/25/24 09:28 75 MG Losartan Potassium 50 mg DAILY PO 10/24/24 10:00 10/25/24 09:29 50 MG Pantoprazole Sodium 20 mg DAILY PO 10/24/24 10:00 10/25/24 09:29 20 MG Atorvastatin Calcium 10 mg DAILY PO 10/24/24 10:00 10/25/24 09:30 10 MG Empaglifozin 25 mg QAM PO 10/24/24 07:00 10/25/24 06:52 25 MG Fluoxetine HCl 40 mg BID PO 10/23/24 22:00 10/25/24 09:30 40 MG Diagnostic Test (Pha) 1 strip ACHS 10/23/24 11:30 10/25/24 11:43 1 STRIP Insulin Human Regular ACHS SC 10/23/24 11:30 10/25/24 12:44 10 UNITS Dextrose 50 ml UD PRN IV 10/23/24 10:30 Acetaminophen/ Hydrocodone Bitart 1 tab Q4HP PRN PO 10/23/24 10:30 10/25/24 11:48 1 TAB Acetaminophen 650 mg Q6HP PRN PO 10/23/24 10:30 Morphine Sulfate 2 mg Q4HPRN PRN IV 10/23/24 10:30 10/25/24 09:33 2 MG Nitroglycerin 0.4 mg Q5MINP PRN SL 10/23/24 10:30 Morphine Sulfate 2 mg Q30M PRN IV 10/23/24 10:30 Insulin Glargine 10 units HS SC 10/23/24 22:00 10/24/24 21:35 10 UNITS Hydralazine HCl 10 mg Q6HP PRN IV 10/23/24 10:45 Examination: GENERAL:Abnormal, HEENT:Abnormal, LUNGS:Abnormal, CVS:Abnormal, ABDOMEN:Abnormal laboratory and microbiology Laboratory Tests 10/24/24 05:20 Test 10/24/24 05:20 Range/Units Serum Glucose 357 H 74-106 mg/dL Microbiology Date/Time Source Procedure Growth Status 10/23/24 23:20 Nose MRSA Screen - Final Complete Problem List/Assessment/Plan Problem List/Assessment/Plan nyha class IV hf ckd htn cad mitral regurg high risk of readmission consider hospice if pt amenable cont HF meds, verquvo on dc Plan discussed with: Patient Date of Service: Oct 25, 2024 Billing Provider: KOLTON RAMOS MD Common Visit Codes: NOT BILLABLE KOLTON RAMOS MD Oct 25, 2024 13:00
[2024-10-25 18:23] LABS: COVID19 ANTIGEN SOFIA FIA NEGATIVE (NEGATIVE)
[2024-10-25 18:24] LABS: Rapid Influenza A Negative (Negative); Rapid Influenza B Negative (Negative)
[2024-10-26] VITALS (12 sets, daily range): BP systolic 88–109; BP diastolic 40–65; PULSE 78–96; RESP 16–19; TEMP 97.3–98.1; O2SAT 96–98
--- NOTE | 2024-10-26 13:36 | DVHPN2 ---
Reviewed: Care Plan, H&P, Labs, Medications, Previous Orders, Radiology Changes from previous H/P or p: No Changes Eyes: No Pain, No Vision change, No Conjunctivae inflammation, No Eyelid inflammation, No Other, No Redness ENT: No Ear pain, No Ear discharge, No Nose pain, No Nose discharge, No Nose congestion, No Mouth pain, No Mouth swelling, No Throat pain, No Throat swelling, No Other Cardiovascular: Chest Pain; No Palpitations; Orthopnea, Paroxysmal Noc. Dyspnea ; No Edema, No Lt Headedness, No Other Respiratory: No Cough, No Dry; Shortness of breath, SOB with excertion; No Wheezing, No Hemoptysis, No Pleuritic Pain, No Sputum, No Other Gastrointestinal: No Nausea, No Vomiting, No Abdominal Pain, No Diarrhea, No Constipation, No Melena, No Hematochezia, No Other Genitourinary: No Dysuria, No Frequency, No Incontinence, No Hematuria, No Retention, No Other Musculoskeletal: No other, No neck pain, No shoulder pain, No arm pain, No back pain, No hand pain, No leg pain, No foot pain Skin: No Rash, No Lesions, No Jaundice, No Bruising, No Other Objective Vitals Vital Signs Date Time Temp Pulse Resp B/P (MAP) Pulse Ox O2 Delivery O2 Flow Rate FiO2 10/26/24 12:02 96 18 109/65 10/26/24 09:00 98.1 98 98.1 10/26/24 08:20 Nasal Cannula* 1 24 Intake/Output Intake and Output 10/26/24 07:00 Intake Total 2288 ml Output Total 3300 ml Balance -1012 ml Intake Oral 2288 ml Output Urine Total 3300 ml Medications Current Medications Medications Dose Ordered Sig/Yesica Route Start Time Stop Time Status Last Admin Dose Admin Furosemide 60 mg DAILY IV 10/24/24 10:00 10/26/24 11:31 60 MG Albuterol 2.5 mg Q4HPRN PRN NEB 10/23/24 10:15 Albuterol 2.5 mg Q6HR NEB 10/23/24 12:00 10/24/24 11:38 2.5 MG Ipratropium [place] 0.5 mg Q4HPRN PRN NEB 10/23/24 10:15 Ipratropium [place] 0.5 mg Q6HR NEB 10/23/24 12:00 129/24 11:37 0.5 MG Aspirin 81 mg DAILY PO 10/24/24 10:00 10/26/24 11:30 81 MG Carvedilol 3.125 mg Q12HR PO 10/23/24 22:00 10/26/24 11:32 3.125 MG Clopidogrel Bisulfate 75 mg DAILY PO 10/24/24 10:00 10/26/24 11:28 75 MG Losartan Potassium 50 mg DAILY PO 10/24/24 10:00 10/26/24 11:32 50 MG Pantoprazole Sodium 20 mg DAILY PO 10/24/24 10:00 10/26/24 11:30 20 MG Atorvastatin Calcium 10 mg DAILY PO 10/24/24 10:00 10/26/24 11:28 10 MG Empaglifozin 25 mg QAM PO 10/24/24 07:00 10/26/24 06:59 25 MG Fluoxetine HCl 40 mg BID PO 10/23/24 22:00 10/26/24 11:26 40 MG Diagnostic Test (Pha) 1 strip ACHS 10/23/24 11:30 10/26/24 12:55 1 STRIP Insulin Human Regular ACHS SC 10/23/24 11:30 10/26/24 12:57 4 UNITS Dextrose 50 ml UD PRN IV 10/23/24 10:30 Acetaminophen/ Hydrocodone Bitart 1 tab Q4HP PRN PO 10/23/24 10:30 10/25/24 16:40 1 TAB Acetaminophen 650 mg Q6HP PRN PO 10/23/24 10:30 Morphine Sulfate 2 mg Q4HPRN PRN IV 10/23/24 10:30 10/26/24 12:02 2 MG Nitroglycerin 0.4 mg Q5MINP PRN SL 10/23/24 10:30 Morphine Sulfate 2 mg Q30M PRN IV 10/23/24 10:30 Insulin Glargine 10 units HS SC 10/23/24 22:00 10/25/24 21:45 10 UNITS Hydralazine HCl 10 mg Q6HP PRN IV 10/23/24 10:45 Laboratory Results Laboratory Tests 10/24/24 05:20 Urinalysis Test 10/23/24 11:34 Urine Color Colorless (Yellow) Urine Clarity Ex.turbid (Clear) Urine pH 5.5 (5.0-9.0) Urine Specific [place] 1.014 (1.001-1.035) Urine Protein 1+ (Negative) H Urine Ketones Negative (Negative) Urine Blood 2+ /uL (Negative) H Urine Nitrite Negative (Negative) Urine Bilirubin Negative (Negative) Urine Urobilinogen Normal mg/dL (Negative) Urine Leukocyte Esterase 3+ /uL (Negative) Urine RBC 90 /hpf (0 - 4) Urine WBC 2252 /hpf (0 - 5) Urine WBC Clumps Present /hpf (None Seen) Urine Squamous Epithelial Cells None seen /hpf (<5) Urine Bacteria Few /hpf (None Seen) H Urine Glucose 4+ mg/dL (Normal) H Microbiology Microbiology Date/Time Source Procedure Growth Status 10/23/24 23:20 Nose MRSA Screen - Final Complete Labs and/or images reviewed: Labs reviewed by me, Image(s) reviewed by me Assessment/Plan Assessment/Plan Chest pain rule out coronary artery disease: Troponin negative x3, treatment per ACS protocol cardiology consult by Dr. Ricardo appreciated Acute hypoxic respiratory failure: Oxygen by nasal canula Acute on chronic decompensated systolic and diastolic heart failure : Cardiology consult by Dr. Ricardo appreciated ejection fraction 20%; recommended added Verquvo as a outpatient NSTEMI, probably type 2 coronary artery disease with previous stenting chronic back pain Presence of pacemaker Hypokalemia Depression Anxiety: Xanax 1 mg PO TID Physical therapy ordered Laura test ordered Flu test ordered Patient to be discharged to nursing home facility tomorrow Plan discussed with: Patient Date of Service: Oct 26, 2024 Billing Provider: MEL FUNEZ MD Common Visit Codes: [id number] INP/OBS CARE(HIGH) MEL FUNEZ MD Oct 26, 2024 13:36
[2024-10-26] MEDS: ACETAMINOPHEN 325 MG TAB PO PRN (22:41)
[2024-10-27] VITALS (8 sets, daily range): BP systolic 13–121; BP diastolic 54–71; PULSE 79–91; RESP 16–19; TEMP 97.1–98.4; O2SAT 96–100
--- NOTE | 2024-10-27 10:28 | DVHPN2 ---
Reviewed: Care Plan, H&P, Labs, Medications, Previous Orders, Radiology Changes from previous H/P or p: No Changes Eyes: No Pain, No Vision change, No Conjunctivae inflammation, No Eyelid inflammation, No Other, No Redness ENT: No Ear pain, No Ear discharge, No Nose pain, No Nose discharge, No Nose congestion, No Mouth pain, No Mouth swelling, No Throat pain, No Throat swelling, No Other Cardiovascular: Chest Pain; No Palpitations; Orthopnea, Paroxysmal Noc. Dyspnea ; No Edema, No Lt Headedness, No Other Respiratory: No Cough, No Dry; Shortness of breath, SOB with excertion; No Wheezing, No Hemoptysis, No Pleuritic Pain, No Sputum, No Other Gastrointestinal: No Nausea, No Vomiting, No Abdominal Pain, No Diarrhea, No Constipation, No Melena, No Hematochezia, No Other Genitourinary: No Dysuria, No Frequency, No Incontinence, No Hematuria, No Retention, No Other Musculoskeletal: No other, No neck pain, No shoulder pain, No arm pain, No back pain, No hand pain, No leg pain, No foot pain Skin: No Rash, No Lesions, No Jaundice, No Bruising, No Other Objective Vitals Vital Signs Date Time Temp Pulse Resp B/P (MAP) Pulse Ox O2 Delivery O2 Flow Rate FiO2 10/27/24 09:42 118/71 10/27/24 09:41 86 10/27/24 08:10 97.4 17 98 97.4 10/26/24 20:00 Nasal Cannula* 1 24 Intake/Output Intake and Output 10/27/24 07:00 Intake Total 994 ml Output Total 2300 ml Balance -1306 ml Intake Oral 994 ml Output Urine Total 2300 ml Medications Current Medications Medications Dose Ordered Sig/Yesica Route Start Time Stop Time Status Last Admin Dose Admin Furosemide 60 mg DAILY IV 10/24/24 10:00 10/27/24 09:40 60 MG Aspirin 81 mg DAILY PO 10/24/24 10:00 10/27/24 09:43 81 MG Carvedilol 3.125 mg Q12HR PO 10/23/24 22:00 10/27/24 09:41 3.125 MG Clopidogrel Bisulfate 75 mg DAILY PO 10/24/24 10:00 10/27/24 09:42 75 MG Losartan Potassium 50 mg DAILY PO 10/24/24 10:00 10/27/24 09:42 50 MG Pantoprazole Sodium 20 mg DAILY PO 10/24/24 10:00 10/27/24 09:41 20 MG Atorvastatin Calcium 10 mg DAILY PO 10/24/24 10:00 10/27/24 09:42 10 MG Empaglifozin 25 mg QAM PO 10/24/24 07:00 10/27/24 06:01 25 MG Fluoxetine HCl 40 mg BID PO 10/23/24 22:00 10/27/24 09:41 40 MG Diagnostic Test (Pha) 1 strip ACHS 10/23/24 11:30 10/27/24 06:01 1 STRIP Insulin Human Regular ACHS SC 10/23/24 11:30 10/26/24 22:48 6 UNITS Dextrose 50 ml UD PRN IV 10/23/24 10:30 Acetaminophen/ Hydrocodone Bitart 1 tab Q4HP PRN PO 10/23/24 10:30 10/27/24 09:42 1 TAB Acetaminophen 650 mg Q6HP PRN PO 10/23/24 10:30 10/26/24 22:41 650 MG Morphine Sulfate 2 mg Q4HPRN PRN IV 10/23/24 10:30 10/27/24 04:50 2 MG Nitroglycerin 0.4 mg Q5MINP PRN SL 10/23/24 10:30 Morphine Sulfate 2 mg Q30M PRN IV 10/23/24 10:30 Insulin Glargine 10 units HS SC 10/23/24 22:00 10/26/24 22:00 10 UNITS Hydralazine HCl 10 mg Q6HP PRN IV 10/23/24 10:45 Laboratory Results Laboratory Tests 10/24/24 05:20 Urinalysis Test 10/23/24 11:34 Urine Color Colorless (Yellow) Urine Clarity Ex.turbid (Clear) Urine pH 5.5 (5.0-9.0) Urine Specific [place] 1.014 (1.001-1.035) Urine Protein 1+ (Negative) H Urine Ketones Negative (Negative) Urine Blood 2+ /uL (Negative) H Urine Nitrite Negative (Negative) Urine Bilirubin Negative (Negative) Urine Urobilinogen Normal mg/dL (Negative) Urine Leukocyte Esterase 3+ /uL (Negative) Urine RBC 90 /hpf (0 - 4) Urine WBC 2252 /hpf (0 - 5) Urine WBC Clumps Present /hpf (None Seen) Urine Squamous Epithelial Cells None seen /hpf (<5) Urine Bacteria Few /hpf (None Seen) H Urine Glucose 4+ mg/dL (Normal) H Microbiology Microbiology Date/Time Source Procedure Growth Status 10/23/24 23:20 Nose MRSA Screen - Final Complete Labs and/or images reviewed: Labs reviewed by me, Image(s) reviewed by me Assessment/Plan Assessment/Plan Noncardiac chest pain: Troponin negative x3, treatment per ACS protocol cardiology consult by Dr. Ricardo appreciated Acute hypoxic respiratory failure: Oxygen by nasal canula Acute on chronic decompensated systolic and diastolic heart failure : Cardiology consult by Dr. Ricardo appreciated ejection fraction 20%; recommended Verquvo as a outpatient NSTEMI, probably type 2 History of coronary artery disease with previous stenting chronic back pain Recurrent falls at home Presence of pacemaker Hypokalemia Depression Anxiety: Xanax Laura test negative Flu test neg Physical therapy ordered Patient to be discharged to halfway facility for rehab Plan discussed with: Patient Date of Service: Oct 27, 2024 Billing Provider: MEL FUNEZ MD Common Visit Codes: [id number] INP/OBS CARE(HIGH) MEL FUNEZ MD Oct 27, 2024 10:28
--- NOTE | 2024-10-27 10:32 | DVHDS2 ---
Discharge Summary Date of Admission Oct 23, 2024 at 10:25 Date of Discharge: Oct 27, 2024 Admitting Diagnosis Chest pain and shortness of breaths Wounds: None Labs/Diagnostic Data: Laboratory Results Test 10/27/24 05:56 10/25/24 14:35 10/24/24 05:20 10/23/24 11:34 POC Glucose 116 mg/dl (70-106) Influenza Type A Antigen Negative (Negative) Influenza Type B Antigen Negative (Negative) SARS-CoV-2 Antigen (Rapid) Negative (NEGATIVE) White Blood Count 7.3 10^3/uL (4.4-10.8) Red Blood Count 3.85 10^6/uL (4.0-5.20) Hemoglobin 12.0 g/dL (12.2-16.2) Hematocrit 35.1 % (36.0-46.0) Mean Corpuscular Volume 91.2 fL (80.0-100.0) Mean Corpuscular Hemoglobin 31.1 pg (28.0-32.0) Mean Corpuscular Hemoglobin Concent 34.1 g/dL (32.0-36.0) Red Cell Distribution Width 14.0 % (11.8-14.3) Platelet Count 308 10^3/uL (140-450) Mean Platelet Volume 7.1 fL (6.9-10.8) Neutrophils (%) (Auto) 61.9 % (37.0-80.0) Lymphocytes (%) (Auto) 29.3 % (10.0-50.0) Monocytes (%) (Auto) 7.1 % (0.0-12.0) Eosinophils (%) (Auto) 1.4 % (0.0-7.0) Basophils (%) (Auto) 0.3 % (0.0-2.0) Neutrophils # (Auto) 4.5 10 ^3/uL (1.6-8.6) Lymphocytes # (Auto) 2.1 10 ^3/uL (0.4-5.4) Monocytes # (Auto) 0.5 10 ^3/uL (0-1.3) Eosinophils # (Auto) 0.1 10 ^3/uL (0-0.8) Basophils # (Auto) 0 10 ^3/uL (0-0.2) Nucleated Red Blood Cells 0.1 % Sodium Level 136 mmol/L (136-145) Potassium Level 4.2 mmol/L (3.5-5.1) Chloride Level 102 mmol/L (98-107) Carbon Dioxide Level 24 mmol/L (20-31) Anion Gap 10 (5-15) Blood Urea Nitrogen 23 mg/dL (9-23) Creatinine 1.11 mg/dL (0.550-1.02) Glomerular Filtration Rate Calc 53 mL/min (>90) BUN/Creatinine Ratio 20.7 (10.0-20.0) Serum Glucose 357 mg/dL (74-106) Calcium Level 9.7 mg/dL (8.7-10.4) Total Bilirubin 0.5 mg/dL (0.2-1.0) Aspartate Amino Transferase (AST) 10 U/L (13-40) Alanine Aminotransferase (ALT) 22 U/L (7-40) Alkaline Phosphatase 98 U/L (46-116) Troponin I High Sensitivity 56 ng/L (</=34) B-Type Natriuretic Peptide 1327.97 pg/mL (0-100) Total Protein 6.2 g/dL (5.7-8.2) Albumin 4.1 g/dL (3.2-4.8) Urine Color Colorless (Yellow) Urine Clarity Ex.turbid (Clear) Urine pH 5.5 (5.0-9.0) Urine Specific [place] 1.014 (1.001-1.035) Urine Protein 1+ (Negative) Urine Ketones Negative (Negative) Urine Blood 2+ /uL (Negative) Urine Nitrite Negative (Negative) Urine Bilirubin Negative (Negative) Urine Urobilinogen Normal mg/dL (Negative) Urine Leukocyte Esterase 3+ /uL (Negative) Urine RBC 90 /hpf (0 - 4) Urine WBC 2252 /hpf (0 - 5) Urine WBC Clumps Present /hpf (None Seen) Urine Squamous Epithelial Cells None seen /hpf (<5) Urine Bacteria Few /hpf (None Seen) Urine Glucose 4+ mg/dL (Normal) Test 10/23/24 08:00 Hemoglobin A1c 9.3 % A1C (<5.7) Magnesium Level 2.2 mg/dL (1.6-2.6) Other Laboratory Tests 10/24/24 05:20 Brief Hx & Hospital Course: 68-year-old female with a history of coronary artery disease status post stents chronic hypoxic respiratory failure on home oxygen 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 Zambrano ejection fraction 20 percent patient has chronic cardiomyopathy. Patient was treated with Xanax for anxiety Laura test negative flu test is negative. Secondary to recurrent falls physical therapy was ordered who recommended halfway facility placement, patient agrees and being discharged to halfway facility Generalized Condition stable but poor at the time of discharge Consults/Reason for consult Cardiology Dr. Ale Zambrano Operations or Procedures Echocardiogram Condition at Discharge: Fair Final Diagnosis/Problems List Noncardiac chest pain: Troponin negative x3, treatment per ACS protocol cardiology consult by Dr. Ricardo appreciated Acute hypoxic respiratory failure: Oxygen by nasal canula Acute on chronic decompensated systolic and diastolic heart failure : Cardiology consult by Dr. Ricardo appreciated ejection fraction 20%; recommended [facility] as a outpatient NSTEMI, probably type 2 History of coronary artery disease with previous stenting chronic back pain Recurrent falls at home Presence of pacemaker Hypokalemia Depression Anxiety: Xanax Laura test negative Flu test neg Discharge Disposition: [facility] Discharge Instruct/Medications Diet: Cardiac 2g Na,low cholest Activity: Light activity Follow Up/Referral: Follow up with the [facility] Medications: See list 39 (Time taken for discharge summary 39 minutes) Discharge Statement: "Patient was advised to return to the ER or call 911 if any headaches, dizziness, shortness of breath, chest pain, abdominal pain, bleeding, fevers, or worsening of medical condition. Patient was counseled about treatment plan, medications, possible side effects, patientverbalized understanding. All questions were answered to the best of my ability. This discharge took greater then 30 minutes in planning, reviewing documentation, counseling the patient, and discussing with other team members." ASSESSMENT ASSESSMENT Hospital Course Marginal improvement Assessment Noncardiac chest pain: Troponin negative x3, treatment per ACS protocol cardiology consult by Dr. Ricardo appreciated Acute hypoxic respiratory failure: Oxygen by nasal canula Acute on chronic decompensated systolic and diastolic heart failure : Cardiology consult by Dr. Ricardo appreciated ejection fraction 20%; recommended [place] as a outpatient NSTEMI, probably type 2 History of coronary artery disease with previous stenting chronic back pain Recurrent falls at home Presence of pacemaker Hypokalemia Depression Anxiety: Xanax Laura test negative Flu test neg Date of Service: Oct 27, 2024 Billing Provider: MEL FUNEZ MD Common Visit Codes: 90434-QAU/OBS DISCH DAY >30min MEL FUNEZ MD Oct 27, 2024 10:31
== END 2024-10-27 19:25 | DRG 280 ==
LOC: ER 06:16 → EDBD 06:16 → TELE 10:25 → TELE-E-ADS 10:35 → TELE 10:35 → EAST 22:10 → TELE-E-ADS 23:50
PROVIDERS: ADMIT Registered Nurse; ATTEND Family Medicine
DX: I13.0 Hypertensive heart and chronic kidney disease with heart failure and stage 1 through stage 4 chronic kidney disease, or unspecified chronic kidney disease (principal); I50.43 Acute on chronic combined systolic (congestive) and diastolic (congestive) heart failure; I21.A1 Myocardial infarction type 2; J96.21 Acute and chronic respiratory failure with hypoxia; J44.1 Chronic obstructive pulmonary disease with (acute) exacerbation; E11.65 Type 2 diabetes mellitus with hyperglycemia; E11.22 Type 2 diabetes mellitus with diabetic chronic kidney disease; R29.6 Repeated falls; Z20.822 Contact with and (suspected) exposure to COVID-19; E87.6 Hypokalemia; F32.A Depression, unspecified; F41.9 Anxiety disorder, unspecified; G89.29 Other chronic pain; I34.0 Nonrheumatic mitral (valve) insufficiency; K21.9 Gastro-esophageal reflux disease without esophagitis; N18.2 Chronic kidney disease, stage 2 (mild); I25.10 Atherosclerotic heart disease of native coronary artery without angina pectoris; Z90.49 Acquired absence of other specified parts of digestive tract; Z90.710 Acquired absence of both cervix and uterus; Z87.11 Personal history of peptic ulcer disease; Z95.5 Presence of coronary angioplasty implant and graft; Z99.81 Dependence on supplemental oxygen; Z88.1 Allergy status to other antibiotic agents; Z91.041 Radiographic dye allergy status; Z87.891 Personal history of nicotine dependence; Z83.3 Family history of diabetes mellitus; Z82.49 Family history of ischemic heart disease and other diseases of the circulatory system; Z95.0 Presence of cardiac pacemaker
CPT/HCPCS: 36415; 71045; 80048; 80053; 81001; 82962; 83036; 83735; 83880; 84484; 85025; 87081; 87426; 87804; 93005; 94640; 97163; 99291; G0378; J1815

== ENCOUNTER 2024-10-31 01:35 | Inpatient (IN) | payer MEDICARE, MEDICAID ==
[~2024-10-31] VITALS: Ht 165.1 cm; Wt 73.8 kg
[2024-10-31] VITALS (9 sets, daily range): BP systolic 92–116; BP diastolic 51–57; PULSE 74–86; RESP 16–18; TEMP 97.6–98.1; O2SAT 95–99
[~2024-10-31 01:35] MED LIST changes: -BLOO1KIT60 XX; -HYDR-4902 PO; -INSU0.5M41 XX; -LANC28MI44 XX
--- NOTE | 2024-10-31 01:59 | ED.PDOC ---
History of Present Illness HPI Comments 68-year-old female brought in by EMS presents with a chief complaint of abdominal pain x 4 hours with associated nausea and vomiting. Patient is a poor historian. Patient reports that her pain is localized to her epigastric region, non-radiating, was rated a 12/10 before pain meds, and was accompanied by nausea and vomiting. Patient was given Fentanyl 100mcg and Zofran 4mg by boring machine set up operator en route to ER. Patient mentions that right now she does not have any pain. Chief Complaint: Abdominal Pain Time Seen by MD: 01:47 Primary Care Provider: SABIHA Reviewed Notes: Medications, Allergies Allergies: Coded Allergies: Iodine (Verified Allergy, Unknown, 04/04/18) Lorazepam (Verified Allergy, Unknown, 09/05/18) Home Meds Active Scripts Atorvastatin Calcium (Lipitor) 10 Mg Tab, 1 TAB PO DAILY for 30 Days, #30 TAB Prov:VARSHA LOFTON RESIDENT 08/29/24 Clopidogrel Bisulfate (CLOPIDOGREL) 75 Mg Tab, 75 MG PO DAILY for 30 Days, #30 TAB Prov:VARSHA LOFTON RESIDENT 08/29/24 Aspirin (Aspirin Low Dose) 81 Mg Tab, 81 MG PO DAILY for 30 Days, #30 TAB Prov:VARSHA LOFTON RESIDENT 08/29/24 Insulin Regular (Human) (Novolin R) 100 Unit/Ml Inj, 0 UNITS SC ACHS for 90 Days, #90 INJ Please use insulin Reglan 3 times a day before meal. Follow below instruction. Please check glucose via glucometer 3 times a day. If blood glucose is between 150 and 200 please administer 2 units of regular insulin. If blood glucose is between 200-250 please administer 4 units of regular insulin. If blood sugar is between 250 and 300 please administer 8 units of regular insulin. If blood sugar between 300-350 please administered 10 units of regular insulin. If blood sugars between 350 and 400 please administer 12 units of regular insulin. If blood sugars greater than 400 please talk to /come to the hospital. Prov:KJ HERMOSILLO RESIDENT 05/17/24 Empagliflozin (Jardiance) 25 Mg Tab, 25 MG PO QAM for 30 Days, #30 TAB Prov:NUHA CORREIA MD 08/14/22 Carvedilol (COREG) 3.125 Mg Tab, 3.125 MG PO Q12HR for 30 Days, #60 TAB Prov:NUHA CORREIA MD 08/14/22 Reported Medications Furosemide (Furosemide) 40 Mg Tab, 1 TAB PO DAILY for 90 Days, #90 09/26/24 Fluoxetine Hcl (Fluoxetine Hcl) 40 Mg Cap, 40 MG PO BID, CAP 08/26/24 Hydrocodone-Acetaminophen (Hydrocodone Bitartrate/AC 10-325 mg) 1 Tab Tab, 1 TAB PO Q6HP, TAB 08/25/24 Pantoprazole Sodium Sesquihydr (Protonix) 40 Mg Tab, 20 MG PO DAILY 12/14/23 Losartan Potassium (Losartan Potassium) 50 Mg Tab, 1 TAB PO DAILY 12/14/23 Information Source: Patient, Emergency Med Personnel Mode of Arrival: EMS Severity: Moderate Timing: Hours Duration: Since onset Prehospital treatment: Pain Meds (Fentanyl 100mcg) Past Medical History PAST MEDICAL HISTORY: Anxiety, CAD, CKF, COPD, Depression, DM, HTN, TX, PUD, UTI'S Surgical History: Appendectomy, Cholecystectomy, Hernia Repair, Hysterectomy, Pacemaker, PTCA, Tonsillectomy VENEREAL DISEASE CONTROL HEAD History: No Pertinent VENEREAL DISEASE CONTROL HEAD History Family History Family History: Reviewed,noncontributory to illness, Unknown Social History Smoker: Unknown Alcohol: Unknown Drugs: Unknown Lives In: Home Constitutional: denies: chills, diaphoresis, fatigue, fever, malaise, sweats, weakness, others EENTM: denies: blurred vision, double vision, ear bleeding, ear discharge, ear drainage, ear pain, ear ringing, eye pain, eye redness, hearing loss, mouth pain, mouth swelling, nasal discharge, nose bleeding, nose congestion, nose pain, photophobia, tearing, throat pain, throat swelling, voice changes, others Respiratory: denies: cough, hemoptysis, orthopnea, SOB at rest, shortness of breath, SOB with excertion, stridor, wheezing, others Cardiovascular: denies: chest pain, dizzy spells, diaphoresis, Dyspnea on exertion, edema, irregular heart beat, left arm pain, lightheadedness, palpitations, PND, syncope, others Gastrointestinal: reports: abdominal pain, nausea, vomiting; denies: abdomen distended, blood streaked bowels, constipated, diarrhea, dysphagia, difficulty swallowing, hematemesis, melena, poor appetite, poor fluid intake, rectal bleeding, rectal pain, others Genitourinary: denies: abnormal vagina bleeding, burning, dyspareunia, dysuria, flank pain, frequency, hematuria, incontinence, pain, , vagina discharge, urgency, others Neurological: denies: dizziness, fainting, headache, left sided numbness, left sided weakness, numbness, paresthesia, pre-existing deficit, right sided numbness, right sided weakness, seizure, speech problems, tingling, tremors, weakness, others Musculoskeletal: denies: back pain, gout, joint pain, joint swelling, muscle pain, muscle stiffness, neck pain, others Integumetry: denies: bruises, change in color, change in hair/nails, dryness, laceration, lesions, lumps, rash, wounds, others Allergic/Immunocompromised: denies: Difficulty Healing, Frequent Infections, Hives, Itching, others Hematologic/Lymphatic: denies: anemia, blood clots, easy bleeding, easy bruising, swollen glands, others Endocrine: denies: excessive hunger, excessive sweating, excessive thirst, excessive urination, flushing, intolerance to cold, intolerance to heat, unexplained weight gain, unexplained weight loss, others Psychiatric: denies: anxiety, bipolar disorder, depression, hopeless, panic disorder, schizophrenia, sleepless, suicidal, others All Other Systems: Reviewed and Negative Physical Exam General Appearance: No Apparent Distress, Normal, Other (PLEASANTLY CONFUSED) HEENT: Normal ENT Inspection, Pharynx Normal, TMs Normal Neck: Full Range of Motion, Non-Tender, Normal, Normal Inspection Respiratory: Chest Non-Tender, Lungs Clear, No Accessory Muscle Use, No Respiratory Distress, Normal Breath Sounds, Other (USING NASAL CANNULA) Cardiovascular: No Edema, No JVD, No Murmur, No Gallop, Normal Peripheral Pulses, Regular Rate/Rhythm Breast Exam: Deferred Gastrointestinal: No Organomegaly, Non Tender, No Pulsatile Mass, Normal Bowel Sounds, Soft Genitalia: Deferred Pelvic: Deferred Rectal: Deferred Extremities: No calf tenderness, Normal capillary refill, Normal inspection, Normal range of motion, Non-tender, No pedal edema Musculoskeletal : Apperance: Normal Neurologic: Alert, district court reporter II-XII nml as Tested, No Motor Deficits, Normal Affect, Normal Mood, No Sensory Deficits Cerebellar Function: Normal Reflexes: Normal Skin: Dry, Normal Color, Warm Lymphatic: No Adenopathy Was a procedure done? Was a procedure done?: No Differential Dx Considerations may include: Gastritis, gastroenteritis, small-bowel obstruction, colitis X-Ray, Labs, Meds, VS Vital Signs Date Time Temp Pulse Resp B/P (MAP) Pulse Ox O2 Delivery O2 Flow Rate FiO2 10/31/24 03:34 90 16 97 Nasal Cannula 0.5 10/31/24 03:18 97.6 90 16 116/57 (76) 97 97.6 10/31/24 01:44 98.6 80 18 162/70 (100) 95 10/31/24 01:43 80 Lab Test 10/31/24 03:25 10/31/24 02:53 10/31/24 02:26 Range/Units Troponin I High Sensitivity Pending 54 *H </=34 ng/L Urine Color Light-yellow Yellow Urine Clarity Turbid H Clear Urine pH 5.5 5.0-9.0 Urine Specific [place] 1.027 1.001-1.035 Urine Protein Trace H Negative Urine Ketones Negative Negative Urine Blood Trace H Negative /uL Urine Nitrite Negative Negative Urine Bilirubin Negative Negative Urine Urobilinogen Normal Negative mg/dL Urine Leukocyte Esterase 2+ Negative /uL Urine RBC 3 0 - 4 /hpf Urine WBC 158 0 - 5 /hpf Urine WBC Clumps Present None Seen /hpf Urine Squamous Epithelial Cells Few <5 /hpf Urine Bacteria None seen None Seen /hpf Urine Yeast (Budding) Moderate None Seen /hpf Urine Glucose 4+ H Normal mg/dL White Blood Count 16.4 #H 4.4-10.8 10^3/uL Red Blood Count 4.65 4.0-5.20 10^6/uL Hemoglobin 13.8 12.2-16.2 g/dL Hematocrit 41.8 # 36.0-46.0 % Mean Corpuscular Volume 89.9 80.0-100.0 fL Mean Corpuscular Hemoglobin 29.7 28.0-32.0 pg Mean Corpuscular Hemoglobin Concent 33.1 32.0-36.0 g/dL Red Cell Distribution Width 14.1 11.8-14.3 % Platelet Count 331 140-450 10^3/uL Mean Platelet Volume 7.5 6.9-10.8 fL Neutrophils (%) (Auto) 86.7 H 37.0-80.0 % Lymphocytes (%) (Auto) 8.0 L 10.0-50.0 % Monocytes (%) (Auto) 4.7 0.0-12.0 % Eosinophils (%) (Auto) 0.4 0.0-7.0 % Basophils (%) (Auto) 0.2 0.0-2.0 % Neutrophils # (Auto) 14.2 H 1.6-8.6 10 ^3/uL Lymphocytes # (Auto) 1.3 0.4-5.4 10 ^3/uL Monocytes # (Auto) 0.8 0-1.3 10 ^3/uL Eosinophils # (Auto) 0.1 0-0.8 10 ^3/uL Basophils # (Auto) 0 0-0.2 10 ^3/uL Nucleated Red Blood Cells 0.0 % Sodium Level 137 136-145 mmol/L Potassium Level 3.8 3.5-5.1 mmol/L Chloride Level 100 98-107 mmol/L Carbon Dioxide Level 24 20-31 mmol/L Anion Gap 13 5-15 Blood Urea Nitrogen 28 H 9-23 mg/dL Creatinine 1.01 0.550-1.02 mg/dL Glomerular Filtration Rate Calc 60 >90 mL/min BUN/Creatinine Ratio 27.7 H 10.0-20.0 Serum Glucose 234 H 74-106 mg/dL Calcium Level 10.5 H 8.7-10.4 mg/dL Total Bilirubin 0.6 0.2-1.0 mg/dL Aspartate Amino Transferase (AST) 20 13-40 U/L Alanine Aminotransferase (ALT) 25 7-40 U/L Alkaline Phosphatase 101 46-116 U/L Total Protein 7.3 5.7-8.2 g/dL Albumin 4.9 H 3.2-4.8 g/dL Lipase 23 12-53 U/L Time of 1ST Reevaluation: 02:17 Reevaluation 1ST: Unchanged Patient Education/Counseling: Diagnosis, Treatment, Prognosis Family Education/Counseling: No Family Present Departure 1 Departure Time of Disposition: 03:43 (Patient presented with abdominal pain that was concerning for possible appendicits, gastritis, cholecystitis, colitis, gastroenteritis, sbo, or orther possible surgical emergency. Data: 1. I ordered and reviewed the result of at least 3 labs including a CBC, BMP, and Urinalysis. 2. I independently interpreted the following tests: CT Abdoment and Pelvis is concerning for small bowel obstruction .Risk:This patient has a high risk of morbidity due to further diagnostic testing or treatment and may suffer from an acute abdominal process disorder. Workup reveals small-bowel obstruction and patient should be admitted for further workup. and possible expert consultation. ) Impression: Primary Impression: Small bowel obstruction Additional Impressions: Projectile vomiting with nausea Generalized abdominal pain Disposition: 09 ADMITTED INPATIENT Admit to: Med Surg Condition: Serious Critical Care Note Critical Care Time?: Yes Critical care comment: Severe abdominal pain Authorized and Performed by: Shane Gracia MD Total critical care time: Approximately 42 minutes Due to a high probability of clinically significant, life threatening deterioration, the patient required my highest level of preparedness to intervene emergently and I personally spent this critical care time directly and personally managing the patient. This critical care time included obtaining a history; examining the patient; pulse oximetry; ordering and review of studies; arranging urgent treatment with development of a management plan; evaluation of patient's response to treatment; frequent reassessment; and, discussions with other providers. This critical care time was performed to assess and manage the high probability of imminent, life-threatening deterioration that could result in multi-organ failure. It was exclusive of separately billable procedures and treating other patients and teaching time. Please see my other sections and the rest of the note for further information on patient assessment and treatment. Stability Stability form required: No I personally scribed for SHANE GRACIA MD ([email or web address]) on 10/31/24 at 01:59. Electronically submitted by Irving Pena ([email or web address]). SHANE GRACIA MD Oct 31, 2024 01:59
[2024-10-31] MEDS: IOHEXOL 300 MG/ML 100ML BOTTLE IJ ONE (02:26)
--- NOTE | 2024-10-31 02:39 | ECG ---
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
[2024-10-31 02:51] LABS: Basophils # (auto) 0 10 ^3/uL (0-0.2); Basophils % (auto) 0.2 % (0.0-2.0); Eosinophils # (auto) 0.1 10 ^3/uL (0-0.8); Eosinophils % (auto) 0.4 % (0.0-7.0); Hematocrit 41.8 % (36.0-46.0); Hemoglobin 13.8 g/dL (12.2-16.2); Lymphocytes # (auto) 1.3 10 ^3/uL (0.4-5.4); Mean Corpuscular Hemoglobin 29.7 pg (28.0-32.0); Mean Corpuscular Hgb Conc. 33.1 g/dL (32.0-36.0); Mean Corpuscular Volume 89.9 fL (80.0-100.0); Monocytes # (auto) 0.8 10 ^3/uL (0-1.3); Monocytes % (auto) 4.7 % (0.0-12.0); Neutrophils # (auto) 14.2 10 ^3/uL (1.6-8.6); Neutrophils % (auto) 86.7 % (37.0-80.0); Platelet Count (auto) 331 10^3/uL (140-450); Red Blood Cells 4.65 10^6/uL (4.0-5.20); Red Cell Distribution Width 14.1 % (11.8-14.3); White Blood Cell 16.4 10^3/uL (4.4-10.8)
[2024-10-31 02:53] LABS: Alanine Aminotransferase 25 U/L (7-40); Alkaline Phosphatase 101 U/L (46-116); Anion Gap 13 (5-15); Aspartate Aminotransferase 20 U/L (13-40); Bilirubin, Total 0.6 mg/dL (0.2-1.0); Carbon Dioxide 24 mmol/L (20-31); Chloride 100 mmol/L (98-107); Lipase 23 U/L (12-53); Potassium 3.8 mmol/L (3.5-5.1); Sodium 137 mmol/L (136-145); Total Protein 7.3 g/dL (5.7-8.2)
[2024-10-31 02:59] LABS: Albumin 4.9 g/dL (3.2-4.8); Calcium 10.5 mg/dL (8.7-10.4); Glucose 234 mg/dL (74-106)
[2024-10-31 03:18] LABS: BUN/Creatinine Ratio 27.7 (10.0-20.0)
[2024-10-31 03:20] LABS: Blood Urea Nitrogen 28 mg/dL (9-23)
--- NOTE | 2024-10-31 03:21 | DVH ---
Critical Findings Examination: ABPL CLINICAL INDICATION: abdominal pain COMPARISON: None. CONTRAST USED: None. TECHNIQUE: A plain CT study of the abdomen and pelvis is performed. The examination was performed with [address] scan is done according to ALARA (As Low as Reasonably Achievable). Multip lanar reconstructions were obtained. FINDINGS: The lack of intravenous contrast limits evaluation of solid organ and other structures, differentiati on / separation and intraluminal evaluation of vessels and ureter from surrounding structures, and ev aluation of organ or abnormal enhancement. CT ABDOMEN: Visualized lower thorax: The evaluation of lung bases demonstrates no focal infiltrates or pleural effusion. Radiopaque intracardiac leads noted, likely pacemaker leads. Advised clinical correlation. Mild esophageal hiatus hernia. Unenhanced liver: The liver is enlarged in size with the right lobe, measuring approximately 17 cm. There is no intrahepatic biliary radicle dilatation. Gallbladder: The gallbladder is surgically absent. The common bile duct is not dilated. Unenhanced pancreas: The pancreas is normal in size and shape. No focal lesion is seen within. The peripancreatic fat planes are normal. Unenhanced spleen: The spleen is normal in size and does not show any focal abnormality. Retroperitoneum: Hypodense lesion of approximate size 12 x 19 mm noted in the left adrenal gland. Advised further enrrique luation with MRI abdomen without contrast. Right adrenal gland is normal in size and morphology in this unenhanced CT scan. There is no significant retroperitoneal lymphadenopathy. The kidneys are normal in size with no hydronephrosis or renal calculi. Hypodense subcentimetric cystic lesions at lower pole of left kidney, larger of approximate size 8 mm at the lower pole of left kidney laterally, likely simple renal cortical cysts. Advised further enrrique luation with CT abdomen and pelvis with contrast. Vessels: Calcific atherosclerotic aorto-iliac plaques noted. Otherwise, the aorta, IVC and the mesenteric ves sels cannot be commented in this unenhanced CT scan. Stomach and bowel: Jejunal and proximal ileal loops are dilated (diameter up to approximately 3.5 cm) with few abnormal air-fluid levels with transition point in the mid ileum along with collapsed distal ileum, suggestive of small bowel obstruction. Advised clinical correlation. The bowel loops are unremarkable. There is no ascites. Skeletal system: Spinal fixation orthopedic hardware noted from L2-S1 vertebrae, post-operative changes. Please corre late with operative history. Degenerative changes in the visualized thoracolumbar spine and pelvic bones. CT PELVIS: Appendix: The appendix is not visualized. Colon: Post-operative changes in the cecum in right iliac fossa. Please correlate with operative history. Diverticulosis without diverticulitis in the sigmoid colon. The rest of the visualized colon and rectum are unremarkable. Urinary bladder: The urinary bladder is unremarkable. Pelvic organs: The uterus is not visualized, please correlate with operative history. No adnexal mass. No significant pelvic lymphadenopathy is identified. No abnormal fluid collection is seen. Radiopaque device giving adjacent streak artifacts noted in the subcutaneous plane of the anterior ab dominal wall in the left paraumbilical regions. Advised clinical correlation. IMPRESSION: 1. Jejunal and proximal ileal loops are dilated (diameter up to approximately 3.5 cm) with few abnor mal air-fluid levels with transition point in the mid ileum along with collapsed distal ileum, sugges tive of small bowel obstruction. Advised clinical correlation. 2. No abdominal mass or adenopathy. 3. No ascites. 4. No free air or inflammatory changes. 5. Chronic and / or ancillary findings as described above. Electronically Signed 10/31/2024 03:20 Nayan Vazquez
[2024-10-31 03:29] LABS: Urine Bacteria None Seen /hpf (None Seen)
[2024-10-31 03:40] LABS: Urine Blood TRACE /uL (Negative); Urine Budding Yeast MODERATE /hpf (None Seen); Urine Clarity Turbid (Clear); Urine Color Light-Yellow (Yellow); Urine Protein, UAD TRACE (Negative); Urine Specific Gravity 1.027 (1.001-1.035); Urine Urobilinogen Normal (Negative); Urine WBC 158 /hpf (0 - 5); Urine WBC Clumps PRESENT /hpf (None Seen); Urine pH 5.5 (5.0-9.0)
--- NOTE | 2024-10-31 07:26 | DVHHP2 ---
History of Present Illness Reason for Visit: abdominal pain History of Present Illness Tori Nguyen is a 68-year-old female with past medical history of coronary artery disease, hypertension, diabetes, COPD, CKD, anxiety, depression, PUD, UTI's, small-bowel obstruction in December 05, 2023, stents placed years ago per patient, , hysterectomy, appendectomy, and tubal ligation who presents to the ED today for abdominal pain, nausea, vomiting x1 week. Patient reports that her abdominal pain is 9/10, is aching, pressure-like and constant in nature. Patient reports that there are no aggravating or relieving factors. Patient reports that she vomited few times white in color. Patient denies fever, chills, chest pain, shortness of breath, diarrhea, headache, lightheadedness, and dizziness. Patient also states that she lives in a [place] [facility] facility and uses a front wheel walker. Patient also reported that she had 5 stents placed years ago and she is compliant with her medications. Patient reports that you she uses home oxygen and does not know how much. Cardiovascular: CAD, HTN Pulmonary: COPD GI: Peptic Ulcer disease Psych: Anxiety, Depression Renal/: Chronic renal failure, UTI Endocrine: Diabetes Past Surgical History: Appendectomy, , Hysterectomy, Tubal Ligation Past Surgical History cardiac stents placed years ago per patient Family History: None Smoke: No ALCOHOL: none Lives: Other Domestic Violence: Neg Review of Systems Constitutional: No: Fever, Chills, Sweats, Weakness, Malaise, Other Eyes: No: Pain, Vision change, Conjunctivae inflammation, Eyelid inflammation, Other, Redness ENT: No: Ear pain, Ear discharge, Nose pain, Nose discharge, Nose congestion, Mouth pain, Mouth swelling, Throat pain, Throat swelling, Other Respiratory: No: Cough, Dry, Shortness of breath, SOB with excertion, Wheezing, Hemoptysis, Pleuritic Pain, Sputum, Wheezing, Other Cardiovascular: No: Chest Pain, Palpitations, Orthopnea, Paroxysmal Noc. Dyspnea, Edema, Lt Headedness, Other Gastrointestinal: Nausea, Vomiting, Abdominal Pain; No: Diarrhea, Constipation, Melena, Hematochezia, Other Genitourinary: No Dysuria, No Frequency, No Incontinence, No Hematuria, No Retention, No Other Musculoskeletal: No: other, neck pain, shoulder pain, arm pain, back pain, hand pain, leg pain, foot pain Skin: No: Rash, Lesions, Jaundice, Bruising, Other Neurological: No: Weakness, Numbness, Incoordination, Change in speech, Confusion, Seizures, Other Allergies: Coded Allergies: Iodine (Verified Allergy, Unknown, 04/04/18) Lorazepam (Verified Allergy, Unknown, 09/05/18) Exam Vital Signs Vital Signs Date Time Temp Pulse Resp B/P (MAP) Pulse Ox O2 Delivery O2 Flow Rate FiO2 10/31/24 06:45 Nasal Cannula* 2 28 10/31/24 06:00 87 15 118/58 (78) 99 10/31/24 03:18 97.6 97.6 General Appearance: Alert, Oriented X3, Cooperative, No acute distress HEENT: Atraumatic, PERRLA, EOMI, Mucous membr. moist/pink Respiratory: Clear to auscultation, Normal air movement Cardiovascular: Normal S1, Normal S2, No murmurs Abdominal: Soft Extremities: No clubbing, No cyanosis, No edema, Normal pulses, No tenderness/swelling Skin: No rashes, No breakdown, No significant lesion Neuro: Normal gait, Normal speech, Strength at 5/5 X4 ext, Normal tone, Sensation intact Psych/Mental Status: Mental status NL, Mood NL Labs/Xrays Labs Test 10/31/24 05:32 10/31/24 02:53 10/31/24 02:26 Range/Units Troponin I High Sensitivity 56 *H </=34 ng/L Urine Color Light-yellow Yellow Urine Clarity Turbid H Clear Urine pH 5.5 5.0-9.0 Urine Specific [place] 1.027 1.001-1.035 Urine Protein Trace H Negative Urine Ketones Negative Negative Urine Blood Trace H Negative /uL Urine Nitrite Negative Negative Urine Bilirubin Negative Negative Urine Urobilinogen Normal Negative mg/dL Urine Leukocyte Esterase 2+ Negative /uL Urine RBC 3 0 - 4 /hpf Urine WBC 158 0 - 5 /hpf Urine WBC Clumps Present None Seen /hpf Urine Squamous Epithelial Cells Few <5 /hpf Urine Bacteria None seen None Seen /hpf Urine Yeast (Budding) Moderate None Seen /hpf Urine Glucose 4+ H Normal mg/dL White Blood Count 16.4 #H 4.4-10.8 10^3/uL Red Blood Count 4.65 4.0-5.20 10^6/uL Hemoglobin 13.8 12.2-16.2 g/dL Hematocrit 41.8 # 36.0-46.0 % Mean Corpuscular Volume 89.9 80.0-100.0 fL Mean Corpuscular Hemoglobin 29.7 28.0-32.0 pg Mean Corpuscular Hemoglobin Concent 33.1 32.0-36.0 g/dL Red Cell Distribution Width 14.1 11.8-14.3 % Platelet Count 331 140-450 10^3/uL Mean Platelet Volume 7.5 6.9-10.8 fL Neutrophils (%) (Auto) 86.7 H 37.0-80.0 % Lymphocytes (%) (Auto) 8.0 L 10.0-50.0 % Monocytes (%) (Auto) 4.7 0.0-12.0 % Eosinophils (%) (Auto) 0.4 0.0-7.0 % Basophils (%) (Auto) 0.2 0.0-2.0 % Neutrophils # (Auto) 14.2 H 1.6-8.6 10 ^3/uL Lymphocytes # (Auto) 1.3 0.4-5.4 10 ^3/uL Monocytes # (Auto) 0.8 0-1.3 10 ^3/uL Eosinophils # (Auto) 0.1 0-0.8 10 ^3/uL Basophils # (Auto) 0 0-0.2 10 ^3/uL Nucleated Red Blood Cells 0.0 % Sodium Level 137 136-145 mmol/L Potassium Level 3.8 3.5-5.1 mmol/L Chloride Level 100 98-107 mmol/L Carbon Dioxide Level 24 20-31 mmol/L Anion Gap 13 5-15 Blood Urea Nitrogen 28 H 9-23 mg/dL Creatinine 1.01 0.550-1.02 mg/dL Glomerular Filtration Rate Calc 60 >90 mL/min BUN/Creatinine Ratio 27.7 H 10.0-20.0 Serum Glucose 234 H 74-106 mg/dL Calcium Level 10.5 H 8.7-10.4 mg/dL Total Bilirubin 0.6 0.2-1.0 mg/dL Aspartate Amino Transferase (AST) 20 13-40 U/L Alanine Aminotransferase (ALT) 25 7-40 U/L Alkaline Phosphatase 101 46-116 U/L Total Protein 7.3 5.7-8.2 g/dL Albumin 4.9 H 3.2-4.8 g/dL Lipase 23 12-53 U/L Examination: ABPL CLINICAL INDICATION: abdominal pain COMPARISON: None. FINDINGS: The lack of intravenous contrast limits evaluation of solid organ and other structures, differentiation / separation and intraluminal evaluation of vessels and ureter from surrounding structures, and evaluation of organ or abnormal enhancement. CT ABDOMEN: Visualized lower thorax: The evaluation of lung bases demonstrates no focal infiltrates or pleural effusion. Radiopaque intracardiac leads noted, likely pacemaker leads. Advised clinical correlation. Mild esophageal hiatus hernia. Unenhanced liver: The liver is enlarged in size with the right lobe, measuring approximately 17 cm. There is no intrahepatic biliary radicle dilatation. Gallbladder: The gallbladder is surgically absent. The common bile duct is not dilated. Unenhanced pancreas: The pancreas is normal in size and shape. No focal lesion is seen within. The peripancreatic fat planes are normal. Unenhanced spleen: The spleen is normal in size and does not show any focal abnormality. Retroperitoneum: Hypodense lesion of approximate size 12 x 19 mm noted in the left adrenal gland. Advised further evaluation with MRI abdomen without contrast. Right adrenal gland is normal in size and morphology in this unenhanced CT scan. There is no significant retroperitoneal lymphadenopathy. The kidneys are normal in size with no hydronephrosis or renal calculi. Hypodense subcentimetric cystic lesions at lower pole of left kidney, larger of approximate size 8 mm at the lower pole of left kidney laterally, likely simple renal cortical cysts. Advised further evaluation with CT abdomen and pelvis with contrast. Vessels: Calcific atherosclerotic aorto-iliac plaques noted. Otherwise, the aorta, IVC and the mesenteric vessels cannot be commented in this unenhanced CT scan. Stomach and bowel: Jejunal and proximal ileal loops are dilated (diameter up to approximately 3.5 cm) with few abnormal air-fluid levels with transition point in the mid ileum along with collapsed distal ileum, suggestive of small bowel obstruction. Advised clinical correlation. The bowel loops are unremarkable. There is no ascites. Skeletal system: Spinal fixation orthopedic hardware noted from L2-S1 vertebrae, post-operative changes. Please correlate with operative history. Degenerative changes in the visualized thoracolumbar spine and pelvic bones. CT PELVIS: Appendix: The appendix is not visualized. Colon: Post-operative changes in the cecum in right iliac fossa. Please correlate with operative history. Diverticulosis without diverticulitis in the sigmoid colon. The rest of the visualized colon and rectum are unremarkable. Urinary bladder: The urinary bladder is unremarkable. Pelvic organs: The uterus is not visualized, please correlate with operative history. No adnexal mass. No significant pelvic lymphadenopathy is identified. No abnormal fluid collection is seen. Radiopaque device giving adjacent streak artifacts noted in the subcutaneous plane of the anterior abdominal wall in the left paraumbilical regions. Advised clinical correlation. IMPRESSION: 1. Jejunal and proximal ileal loops are dilated (diameter up to approximately 3.5 cm) with few abnormal air-fluid levels with transition point in the mid ileum along with collapsed distal ileum, suggestive of small bowel obstruction. Advised clinical correlation. 2. No abdominal mass or adenopathy. 3. No ascites. 4. No free air or inflammatory changes. 5. Chronic and / or ancillary findings as described above. CHEST RADIOGRAPH Indication: NG TUBE PLACEMENT Technique: Single frontal view of the chest was obtained Comparison: XY CHEST PORTABLE on DOS: 10/24/24, XY CHEST PORTABLE on DOS: 10/23/24, XY CHEST PORTABLE on DOS: 09/25/24, XY CHEST PORTABLE on DOS: 09/16/24, XY CHEST PORTABLE on DOS: 09/15/24, XY CHEST PORTABLE on DOS: 10/24/24 FINDINGS: Lines and Tubes: Left-sided dual-chamber pacemaker / ICD is in place. Lungs: There is right mid/lower lung consolidation. Hazy left lower lung opacity. Pleura: Indistinctness of the bilateral hemidiaphragms . No pneumothorax. Cardiomediastinal contours: Cardiac silhouette is mostly obscured due to lung opacities. Bones: Unremarkable IMPRESSION: 1. Right mid/lower lung consolidation is concerning for pneumonia. There is also left basilar consolidation/atelectasis. 2. Probable small bilateral pleural effusions. Assessment/Plan Assessment/Plan Assessment/Plan: SBO Elevated troponin's Leukocytosis likely 2nd to PNA UTI Glucosuria cards cx gen sx cx ngt LIS IV Abx - cefipime and flagyl ECHO on 08/26/24 EF 25% labs ekg cxr ct a/p ekg am labs am trend troponin's lipase tsh lipid ua lactic DM2 HgbA1C ISS and accuchecks CAD home meds held - poss sx COPD resp txs O2 dependent HTN Chronic HF monitor continue home meds Anxiety Depression continue home meds PUD protonix FEN/PPX npo ivf hold ac's for poss sx protonix Discussed plan of care with patient and nurse Admit to tele Home medications reconciled Plan discussed with: Patient Date of Service: Oct 31, 2024 Billing Provider: KACEY ESTRADA Common Visit Codes: [id number] INP/OBS CARE (MOD) KACEY ESTRADA Oct 31, 2024 07:26
[2024-10-31] MEDS ORDERED: ONDANSETRON HCL 4 MG/2 ML VIAL IV PRN (08:00)
[2024-10-31] MEDS ORDERED: NITROGLYCERIN 0.4 MG SL TAB SL PRN ×2 (08:00)
[2024-10-31] MEDS ORDERED: MORPHINE SULFATE 4 MG/ML SYR/VIAL IV PRN (08:00)
[2024-10-31] MEDS ORDERED: ACETAMINOPHEN 325 MG TAB PO PRN (08:00)
[2024-10-31] MEDS ORDERED: ZOLPIDEM TARTRATE 5 MG TAB PO PRN (08:00)
[2024-10-31] MEDS ORDERED: MORPHINE SULFATE INJ 2 MG/ml SYRG IV PRN (08:00)
--- NOTE | 2024-10-31 08:09 | DVH ---
CHEST RADIOGRAPH Indication: NG TUBE PLACEMENT Technique: Single frontal view of the chest was obtained Comparison: XY CHEST PORTABLE on DOS: 10/24/24, XY CHEST PORTABLE on DOS: 10/23/24, XY CHEST PORTABLE o n DOS: 09/25/24, XY CHEST PORTABLE on DOS: 09/16/24, XY CHEST PORTABLE on DOS: 09/15/24, XY CHEST PORT ABLE on DOS: 10/24/24 FINDINGS: Lines and Tubes: Left-sided dual-chamber pacemaker / ICD is in place. Lungs: There is right mid/lower lung consolidation. Hazy left lower lung opacity. Pleura: Indistinctness of the bilateral hemidiaphragms . No pneumothorax. Cardiomediastinal contours: Cardiac silhouette is mostly obscured due to lung opacities. Bones: Unremarkable IMPRESSION: 1. Right mid/lower lung consolidation is concerning for pneumonia. There is also left basilar consoli dation/atelectasis. 2. Probable small bilateral pleural effusions.
[2024-10-31] MEDS: SODIUM CHLORIDE 0.9% 1,000 ML IV SCH (08:25)
[2024-10-31] MEDS: MAALOX PLUS or MAALOX 30 ML PO ONE (08:25)
[2024-10-31] MEDS ORDERED: metroNIDAZOLE 500MG/100ML 100 ML IV ONE (08:30)
[2024-10-31] MEDS ORDERED: cefTRIAXone 1GM/50ML D5W 50 ML IV ONE (08:30)
[2024-10-31] MEDS ORDERED: AZITHROMYCIN 500MG/ 250ML 250 ML IV ONE (08:30)
[2024-10-31] MEDS ORDERED: DEXTROSE (50%) 50ML SYRG IV PRN (08:45)
[2024-10-31] MEDS ORDERED: ALBUTEROL SULF 2.5 MG/0.5ML(0.5%) NEB SOLN NEB PRN (08:45)
[2024-10-31] MEDS ORDERED: IPRATROPIUM BROM 0.5 MG/2.5ML INH SOL NEB PRN (08:45)
[2024-10-31] MEDS ORDERED: cefTRIAXone 1GM/50ML D5W 50 ML IV SCH (09:00)
[2024-10-31] MEDS: MORPHINE SULFATE INJ 2 MG/ml SYRG IV PRN (09:31)
--- NOTE | 2024-10-31 09:46 | DVHINCON2 ---
Date of service: Oct 31, 2024 History of Present Illness Patient is a 68-year-old female with a history of multiple medical problems including coronary artery disease status post stent, hypertension, diabetes, [place] PD, CKD, and also history of previous small-bowel obstruction in November of 2023 now admitted secondary to one-week history of diffuse abdominal pain associated with nausea and vomiting. Patient denies any flatus or bowel movements with the last two days. Past Medical History Coronary artery disease status post stent placement, hypertension, COPD, peptic ulcer disease, anxiety, depression, chronic kidney disease Past Surgical History Cholecystectomy, appendectomy, tubal ligation, hysterectomy. Family History: Cardiovascular disease G8 FATHER Diabetes during Diabetes mellitus G8 FATHER FH: dementia G8 MOTHER Hypertension G8 MOTHER Family History Noncontributory Social History No alcohol, tobacco, IV drug use Allergies: Coded Allergies: Iodine (Verified Allergy, Unknown, 04/04/18) Lorazepam (Verified Allergy, Unknown, 09/05/18) Home Meds Active Scripts Atorvastatin Calcium (Lipitor) 10 Mg Tab, 1 TAB PO DAILY for 30 Days, #30 TAB Prov:VARSHA LOFTON RESIDENT 08/29/24 Clopidogrel Bisulfate (CLOPIDOGREL) 75 Mg Tab, 75 MG PO DAILY for 30 Days, #30 TAB Prov:VARSHA LOFTON RESIDENT 08/29/24 Aspirin (Aspirin Low Dose) 81 Mg Tab, 81 MG PO DAILY for 30 Days, #30 TAB Prov:VARSHA LOFTON RESIDENT 08/29/24 Insulin Regular (Human) (Novolin R) 100 Unit/Ml Inj, 0 UNITS SC ACHS for 90 Days, #90 INJ Please use insulin Reglan 3 times a day before meal. Follow below instruction. Please check glucose via glucometer 3 times a day. If blood glucose is between 150 and 200 please administer 2 units of regular insulin. If blood glucose is between 200-250 please administer 4 units of regular insulin. If blood sugar is between 250 and 300 please administer 8 units of regular insulin. If blood sugar between 300-350 please administered 10 units of regular insulin. If blood sugars between 350 and 400 please administer 12 units of regular insulin. If blood sugars greater than 400 please talk to /come to the hospital. Prov:KJ HERMOSILLO RESIDENT 05/17/24 Carvedilol (COREG) 3.125 Mg Tab, 3.125 MG PO Q12HR for 30 Days, #60 TAB Prov:NUHA CORREIA MD 08/14/22 Reported Medications Furosemide (Furosemide) 40 Mg Tab, 1 TAB PO DAILY for 90 Days, #90 09/26/24 Fluoxetine Hcl (Fluoxetine Hcl) 40 Mg Cap, 40 MG PO BID, CAP 08/26/24 Hydrocodone-Acetaminophen (Hydrocodone Bitartrate/AC 10-325 mg) 1 Tab Tab, 1 TAB PO Q6HP, TAB 08/25/24 Pantoprazole Sodium Sesquihydr (Protonix) 40 Mg Tab, 20 MG PO DAILY 12/14/23 Losartan Potassium (Losartan Potassium) 50 Mg Tab, 1 TAB PO DAILY 12/14/23 Current Medications Current Medications Medications (Trade) Dose Ordered Sig/Yesica Route PRN Reason Start Time Stop Time Status Last Admin Sodium Chloride 1,000 ml @ 75 mls/hr [id number] IV 10/31/24 08:00 10/31/24 08:25 Morphine Sulfate 2 mg Q30MP PRN IV FOR CHEST PAIN 10/31/24 08:00 UNV Acetaminophen (Tylenol Tablet) 650 mg Q6HP PRN PO MILD PAIN (1-3 PAIN SCALE) 10/31/24 08:00 Zolpidem Tartrate (Ambien) 5 mg QHSP PRN PO FOR INSOMNIA 10/31/24 08:00 Docusate Sodium (Colace Capsule) 100 mg DAILY PO 10/31/24 10:00 Nitroglycerin (Ntrostat Sublingual) 0.4 mg Q5MINP PRN SL FOR CHEST PAIN 10/31/24 08:00 UNV Ondansetron HCl (Zofran) 4 mg Q4HP PRN IV NAUSEA / VOMITING 10/31/24 08:00 Hold Nitroglycerin (Ntrostat Sublingual) 0.4 mg Q5MINP PRN SL FOR CHEST PAIN 10/31/24 08:00 Morphine Sulfate 2 mg Q30M PRN IV FOR CHEST PAIN 10/31/24 08:00 Ceftriaxone Sodium 50 ml @ 100 mls/hr DAILY@09 IV 10/31/24 09:00 UNV Azithromycin 250 ml @ 125 mls/hr DAILY IV 10/31/24 10:00 UNV Carvedilol (Coreg Tablet) 3.125 mg Q12HR PO 10/31/24 10:00 10/31/24 08:34 DC Furosemide (Lasix Tablet) 40 mg DAILY PO 10/31/24 10:00 10/31/24 08:34 DC Losartan Potassium (Cozaar Tablet) 50 mg DAILY PO 10/31/24 10:00 10/31/24 08:34 DC Pantoprazole Sodium (Protonix Tablet) 20 mg DAILY PO 10/31/24 10:00 10/31/24 08:34 DC Patient Own Medication 1 tab DAILY PO 10/31/24 10:00 10/31/24 08:34 DC Patient Own Medication 25 mg QAM PO 11/01/24 07:00 10/31/24 08:34 DC Patient Own Medication 40 mg BID PO 10/31/24 10:00 10/31/24 08:34 DC Cefepime HCl 50 ml @ 12.5 mls/hr Q12HR IV 10/31/24 10:00 10/31/24 08:34 DC Metronidazole 100 ml @ 100 mls/hr Q8HR IV 10/31/24 14:00 10/31/24 08:34 DC Albuterol (Ventolin Medneb) 2.5 mg Q4HPRN PRN NEB SHORTNESS OF BREATH 10/31/24 08:45 Ipratropium [place] (Atrovent Medneb) 0.5 mg Q4HPRN PRN NEB SHORTNESS OF BREATH 10/31/24 08:45 Metronidazole 100 ml @ 100 mls/hr Q8H IV 10/31/24 17:00 Cefepime HCl 50 ml @ 12.5 mls/hr Q12HR IV 10/31/24 10:00 Carvedilol (Coreg Tablet) 3.125 mg Q12HR PO 10/31/24 10:00 Furosemide (Lasix Tablet) 40 mg DAILY PO 10/31/24 10:00 Losartan Potassium (Cozaar Tablet) 50 mg DAILY PO 10/31/24 10:00 Pantoprazole Sodium (Protonix Tablet) 20 mg DAILY PO 10/31/24 10:00 Future Hold Atorvastatin Calcium (Lipitor) 20 mg HS PO 10/31/24 22:00 Empaglifozin (Jardiance) 25 mg QAM PO 11/01/24 07:00 Fluoxetine HCl (PROzac CAPSULE) 40 mg BID PO 10/31/24 10:00 Diagnostic Test (Pha) (Accu-Chek Comfort Curve T) 1 strip Q6HR 10/31/24 12:00 Insulin Human Regular (InsuLIN R) Q6HR SC 10/31/24 12:00 Dextrose 50 ml UD PRN IV Blood Sugar LESS THAN 60 10/31/24 08:45 Morphine Sulfate 1 mg Q4HP PRN IV SEVERE PAIN (7-10 PAIN SCALE) 10/31/24 09:00 Vital Signs Vital Signs Date Time Temp Pulse Resp B/P (MAP) Pulse Ox O2 Delivery O2 Flow Rate FiO2 10/31/24 09:13 96 Nasal Cannula* 1 24 10/31/24 08:50 91 10/31/24 08:00 16 117/62 (80) 10/31/24 03:18 97.6 97.6 Physical Exam GEN: Age-appropriate female in no acute distress. Alert. HEENT: Normocephalic atraumatic. Moist mucous membranes. Anicteric sclerae. CV: RRR Respiratory: Coarse breath sounds ABD: There is a subcutaneous pain pump in the left lower quadrant. Minimal distention with minimal tenderness to palpation. Chest x-ray: Right mid/lower lung consolidation concerning for pneumonia CT of the abdomen and pelvis: Jejunal and proximal ileal loops that are dilated up to 3.5 cm with a few abnormal air-fluid levels with a transition point in the mid ileum suggestive of small-bowel obstruction. Labs/Diagnostic Data Labs Test 10/31/24 09:23 10/31/24 05:32 10/31/24 02:53 10/31/24 02:26 Range/Units Troponin I High Sensitivity 56 *H </=34 ng/L Thyroid Stimulating Hormone (TSH) 0.79 0.55-4.78 uIU/mL Urine Color Light-yellow Yellow Urine Clarity Turbid H Clear Urine pH 5.5 5.0-9.0 Urine Specific [place] 1.027 1.001-1.035 Urine Protein Trace H Negative Urine Ketones Negative Negative Urine Blood Trace H Negative /uL Urine Nitrite Negative Negative Urine Bilirubin Negative Negative Urine Urobilinogen Normal Negative mg/dL Urine Leukocyte Esterase 2+ Negative /uL Urine RBC 3 0 - 4 /hpf Urine WBC 158 0 - 5 /hpf Urine WBC Clumps Present None Seen /hpf Urine Squamous Epithelial Cells Few <5 /hpf Urine Bacteria None seen None Seen /hpf Urine Yeast (Budding) Moderate None Seen /hpf Urine Glucose 4+ H Normal mg/dL White Blood Count 16.4 #H 4.4-10.8 10^3/uL Red Blood Count 4.65 4.0-5.20 10^6/uL Hemoglobin 13.8 12.2-16.2 g/dL Hematocrit 41.8 # 36.0-46.0 % Mean Corpuscular Volume 89.9 80.0-100.0 fL Mean Corpuscular Hemoglobin 29.7 28.0-32.0 pg Mean Corpuscular Hemoglobin Concent 33.1 32.0-36.0 g/dL Red Cell Distribution Width 14.1 11.8-14.3 % Platelet Count 331 140-450 10^3/uL Mean Platelet Volume 7.5 6.9-10.8 fL Neutrophils (%) (Auto) 86.7 H 37.0-80.0 % Lymphocytes (%) (Auto) 8.0 L 10.0-50.0 % Monocytes (%) (Auto) 4.7 0.0-12.0 % Eosinophils (%) (Auto) 0.4 0.0-7.0 % Basophils (%) (Auto) 0.2 0.0-2.0 % Neutrophils # (Auto) 14.2 H 1.6-8.6 10 ^3/uL Lymphocytes # (Auto) 1.3 0.4-5.4 10 ^3/uL Monocytes # (Auto) 0.8 0-1.3 10 ^3/uL Eosinophils # (Auto) 0.1 0-0.8 10 ^3/uL Basophils # (Auto) 0 0-0.2 10 ^3/uL Nucleated Red Blood Cells 0.0 % Sodium Level 137 136-145 mmol/L Potassium Level 3.8 3.5-5.1 mmol/L Chloride Level 100 98-107 mmol/L Carbon Dioxide Level 24 20-31 mmol/L Anion Gap 13 5-15 Blood Urea Nitrogen 28 H 9-23 mg/dL Creatinine 1.01 0.550-1.02 mg/dL Glomerular Filtration Rate Calc 60 >90 mL/min BUN/Creatinine Ratio 27.7 H 10.0-20.0 Serum Glucose 234 H 74-106 mg/dL Calcium Level 10.5 H 8.7-10.4 mg/dL Total Bilirubin 0.6 0.2-1.0 mg/dL Aspartate Amino Transferase (AST) 20 13-40 U/L Alanine Aminotransferase (ALT) 25 7-40 U/L Alkaline Phosphatase 101 46-116 U/L Total Protein 7.3 5.7-8.2 g/dL Albumin 4.9 H 3.2-4.8 g/dL Lipase 23 12-53 U/L Assessment 1. Small-bowel obstruction 2. Coronary artery disease with elevated troponins 3. UTI 4. Possible right lobe pneumonia Plan/Recommendation 1. Continue NG tube decompression 2. Patient is allergic to iodine in which case Gastrografin small-bowel follow- through is contraindicated. This was discussed with Dr. Frye, the radiologist. 3. Cardiology consult for possible surgical intervention if needed. Plan discussed with: Patient BRIAN WILKINSON MD Oct 31, 2024 09:46
[2024-10-31] MEDS: metroNIDAZOLE 500MG/100ML 100 ML IV ONE (09:53)
[2024-10-31] MEDS: FLUoxetine HCL 20 MG CAP PO SCH (10:00)
[2024-10-31] MEDS ORDERED: FLUOXETINE HCL 40 MG PO SCH (10:00)
[2024-10-31] MEDS ORDERED: CEFEPIME 1GM/ 50ML 50 ML IV SCH (10:00)
[2024-10-31] MEDS ORDERED: LOSARTAN POTASSIUM 50 MG TAB PO SCH (10:00)
[2024-10-31] MEDS ORDERED: PANTOPRAZOLE 40 MG TAB PO SCH ×2 (10:00)
[2024-10-31] MEDS: CARVEDILOL 3.125 MG TAB PO SCH (10:00)
[2024-10-31] MEDS: LOSARTAN POTASSIUM 50 MG TAB PO SCH (10:00)
[2024-10-31] MEDS: DOCUSATE SOD 100 MG CAP PO SCH (10:00)
[2024-10-31] MEDS: FUROSEMIDE 40 MG TAB PO SCH (10:00)
[2024-10-31] MEDS ORDERED: FUROSEMIDE 40 MG TAB PO SCH (10:00)
[2024-10-31] MEDS ORDERED: PATIENTS OWN MEDICATION (Atorvastatin Calcium (Lipitor) 1 TAB) PO SCH (10:00)
[2024-10-31] MEDS ORDERED: CARVEDILOL 3.125 MG TAB PO SCH (10:00)
[2024-10-31] MEDS ORDERED: AZITHROMYCIN 500MG/ 250ML 250 ML IV SCH (10:00)
[2024-10-31 10:26] LABS: INR 1.06 (0.9-1.15); Partial Thromboplastin Time 27.4 SEC (24.5-34.5); Prothrombin Time 11.2 sec (9.3-11.8)
--- NOTE | 2024-10-31 11:47 | DVHINCON2 ---
Date of service: Oct 31, 2024 History of Present Illness 68 yo F with hx of cad , severe chf, ckd, mitral regurg admitted for SBO. pt had SBO 11 months ago. pt is very ill in general and non ambulatory. Past Medical History reviewed Family History: Cardiovascular disease G8 FATHER Diabetes during Diabetes mellitus G8 FATHER FH: dementia G8 MOTHER Hypertension G8 MOTHER Allergies: Coded Allergies: Iodine (Verified Allergy, Unknown, 04/04/18) Lorazepam (Verified Allergy, Unknown, 09/05/18) Home Meds Active Scripts Atorvastatin Calcium (Lipitor) 10 Mg Tab, 1 TAB PO DAILY for 30 Days, #30 TAB Prov:VARSHA LOFTON RESIDENT 08/29/24 Clopidogrel Bisulfate (CLOPIDOGREL) 75 Mg Tab, 75 MG PO DAILY for 30 Days, #30 TAB Prov:VARSHA LOFTON RESIDENT 08/29/24 Aspirin (Aspirin Low Dose) 81 Mg Tab, 81 MG PO DAILY for 30 Days, #30 TAB Prov:VARSHA LOFTON RESIDENT 08/29/24 Insulin Regular (Human) (Novolin R) 100 Unit/Ml Inj, 0 UNITS SC ACHS for 90 Days, #90 INJ Please use insulin Reglan 3 times a day before meal. Follow below instruction. Please check glucose via glucometer 3 times a day. If blood glucose is between 150 and 200 please administer 2 units of regular insulin. If blood glucose is between 200-250 please administer 4 units of regular insulin. If blood sugar is between 250 and 300 please administer 8 units of regular insulin. If blood sugar between 300-350 please administered 10 units of regular insulin. If blood sugars between 350 and 400 please administer 12 units of regular insulin. If blood sugars greater than 400 please talk to /come to the hospital. Prov:KJ HERMOSILLO RESIDENT 05/17/24 Carvedilol (COREG) 3.125 Mg Tab, 3.125 MG PO Q12HR for 30 Days, #60 TAB Prov:NUHA CORREIA MD 08/14/22 Reported Medications Furosemide (Furosemide) 40 Mg Tab, 1 TAB PO DAILY for 90 Days, #90 09/26/24 Fluoxetine Hcl (Fluoxetine Hcl) 40 Mg Cap, 40 MG PO BID, CAP 08/26/24 Hydrocodone-Acetaminophen (Hydrocodone Bitartrate/AC 10-325 mg) 1 Tab Tab, 1 TAB PO Q6HP, TAB 08/25/24 Pantoprazole Sodium Sesquihydr (Protonix) 40 Mg Tab, 20 MG PO DAILY 12/14/23 Losartan Potassium (Losartan Potassium) 50 Mg Tab, 1 TAB PO DAILY 12/14/23 Current Medications Current Medications Medications (Trade) Dose Ordered Sig/Yesica Route PRN Reason Start Time Stop Time Status Last Admin Sodium Chloride 1,000 ml @ 75 mls/hr [id number] IV 10/31/24 08:00 10/31/24 08:25 Morphine Sulfate 2 mg Q30MP PRN IV FOR CHEST PAIN 10/31/24 08:00 UNV Acetaminophen (Tylenol Tablet) 650 mg Q6HP PRN PO MILD PAIN (1-3 PAIN SCALE) 10/31/24 08:00 Zolpidem Tartrate (Ambien) 5 mg QHSP PRN PO FOR INSOMNIA 10/31/24 08:00 Docusate Sodium (Colace Capsule) 100 mg DAILY PO 10/31/24 10:00 Nitroglycerin (Ntrostat Sublingual) 0.4 mg Q5MINP PRN SL FOR CHEST PAIN 10/31/24 08:00 UNV Ondansetron HCl (Zofran) 4 mg Q4HP PRN IV NAUSEA / VOMITING 10/31/24 08:00 Hold Nitroglycerin (Ntrostat Sublingual) 0.4 mg Q5MINP PRN SL FOR CHEST PAIN 10/31/24 08:00 Morphine Sulfate 2 mg Q30M PRN IV FOR CHEST PAIN 10/31/24 08:00 Ceftriaxone Sodium 50 ml @ 100 mls/hr DAILY@09 IV 10/31/24 09:00 UNV Azithromycin 250 ml @ 125 mls/hr DAILY IV 10/31/24 10:00 UNV Carvedilol (Coreg Tablet) 3.125 mg Q12HR PO 10/31/24 10:00 10/31/24 08:34 DC Furosemide (Lasix Tablet) 40 mg DAILY PO 10/31/24 10:00 10/31/24 08:34 DC Losartan Potassium (Cozaar Tablet) 50 mg DAILY PO 10/31/24 10:00 10/31/24 08:34 DC Pantoprazole Sodium (Protonix Tablet) 20 mg DAILY PO 10/31/24 10:00 10/31/24 08:34 DC Patient Own Medication 1 tab DAILY PO 10/31/24 10:00 10/31/24 08:34 DC Patient Own Medication 25 mg QAM PO 11/01/24 07:00 10/31/24 08:34 DC Patient Own Medication 40 mg BID PO 10/31/24 10:00 10/31/24 08:34 DC Cefepime HCl 50 ml @ 12.5 mls/hr Q12HR IV 10/31/24 10:00 10/31/24 08:34 DC Metronidazole 100 ml @ 100 mls/hr Q8HR IV 10/31/24 14:00 10/31/24 08:34 DC Albuterol (Ventolin Medneb) 2.5 mg Q4HPRN PRN NEB SHORTNESS OF BREATH 10/31/24 08:45 Ipratropium [place] (Atrovent Medneb) 0.5 mg Q4HPRN PRN NEB SHORTNESS OF BREATH 10/31/24 08:45 Metronidazole 100 ml @ 100 mls/hr Q8H IV 10/31/24 17:00 Cefepime HCl 50 ml @ 12.5 mls/hr Q12HR IV 10/31/24 10:00 Carvedilol (Coreg Tablet) 3.125 mg Q12HR PO 10/31/24 10:00 Furosemide (Lasix Tablet) 40 mg DAILY PO 10/31/24 10:00 Losartan Potassium (Cozaar Tablet) 50 mg DAILY PO 10/31/24 10:00 Pantoprazole Sodium (Protonix Tablet) 20 mg DAILY PO 10/31/24 10:00 Hold Atorvastatin Calcium (Lipitor) 20 mg HS PO 10/31/24 22:00 Empaglifozin (Jardiance) 25 mg QAM PO 11/01/24 07:00 Fluoxetine HCl (PROzac CAPSULE) 40 mg BID PO 10/31/24 10:00 Diagnostic Test (Pha) (Accu-Chek Comfort Curve T) 1 strip Q6HR 10/31/24 12:00 Insulin Human Regular (InsuLIN R) Q6HR SC 10/31/24 12:00 Dextrose 50 ml UD PRN IV Blood Sugar LESS THAN 60 10/31/24 08:45 Morphine Sulfate 1 mg Q4HP PRN IV SEVERE PAIN (7-10 PAIN SCALE) 10/31/24 09:00 10/31/24 09:31 Review of Systems 10 pt ros otherwise negative Vital Signs Vital Signs Date Time Temp Pulse Resp B/P (MAP) Pulse Ox O2 Delivery O2 Flow Rate FiO2 10/31/24 10:20 90 12 120/56 10/31/24 10:00 97 10/31/24 09:43 97.6 1.0 24 97.6 10/31/24 09:13 Nasal Cannula* Physical Exam nad s1 s2 rrr diffuse rhonchi abd soft /nt/nd trivial edema Labs/Diagnostic Data Labs Test 10/31/24 09:23 10/31/24 05:32 10/31/24 02:53 10/31/24 02:26 Range/Units Prothrombin Time 11.2 9.3-11.8 sec Prothrombin Time INR 1.06 0.9-1.15 Activated Partial Thromboplast Time 27.4 24.5-34.5 SEC Lactic Acid Level 0.9 0.4-2.0 mmol/L Troponin I High Sensitivity 56 *H </=34 ng/L Thyroid Stimulating Hormone (TSH) 0.79 0.55-4.78 uIU/mL Urine Color Light-yellow Yellow Urine Clarity Turbid H Clear Urine pH 5.5 5.0-9.0 Urine Specific [place] 1.027 1.001-1.035 Urine Protein Trace H Negative Urine Ketones Negative Negative Urine Blood Trace H Negative /uL Urine Nitrite Negative Negative Urine Bilirubin Negative Negative Urine Urobilinogen Normal Negative mg/dL Urine Leukocyte Esterase 2+ Negative /uL Urine RBC 3 0 - 4 /hpf Urine WBC 158 0 - 5 /hpf Urine WBC Clumps Present None Seen /hpf Urine Squamous Epithelial Cells Few <5 /hpf Urine Bacteria None seen None Seen /hpf Urine Yeast (Budding) Moderate None Seen /hpf Urine Glucose 4+ H Normal mg/dL White Blood Count 16.4 #H 4.4-10.8 10^3/uL Red Blood Count 4.65 4.0-5.20 10^6/uL Hemoglobin 13.8 12.2-16.2 g/dL Hematocrit 41.8 # 36.0-46.0 % Mean Corpuscular Volume 89.9 80.0-100.0 fL Mean Corpuscular Hemoglobin 29.7 28.0-32.0 pg Mean Corpuscular Hemoglobin Concent 33.1 32.0-36.0 g/dL Red Cell Distribution Width 14.1 11.8-14.3 % Platelet Count 331 140-450 10^3/uL Mean Platelet Volume 7.5 6.9-10.8 fL Neutrophils (%) (Auto) 86.7 H 37.0-80.0 % Lymphocytes (%) (Auto) 8.0 L 10.0-50.0 % Monocytes (%) (Auto) 4.7 0.0-12.0 % Eosinophils (%) (Auto) 0.4 0.0-7.0 % Basophils (%) (Auto) 0.2 0.0-2.0 % Neutrophils # (Auto) 14.2 H 1.6-8.6 10 ^3/uL Lymphocytes # (Auto) 1.3 0.4-5.4 10 ^3/uL Monocytes # (Auto) 0.8 0-1.3 10 ^3/uL Eosinophils # (Auto) 0.1 0-0.8 10 ^3/uL Basophils # (Auto) 0 0-0.2 10 ^3/uL Nucleated Red Blood Cells 0.0 % Sodium Level 137 136-145 mmol/L Potassium Level 3.8 3.5-5.1 mmol/L Chloride Level 100 98-107 mmol/L Carbon Dioxide Level 24 20-31 mmol/L Anion Gap 13 5-15 Blood Urea Nitrogen 28 H 9-23 mg/dL Creatinine 1.01 0.550-1.02 mg/dL Glomerular Filtration Rate Calc 60 >90 mL/min BUN/Creatinine Ratio 27.7 H 10.0-20.0 Serum Glucose 234 H 74-106 mg/dL Calcium Level 10.5 H 8.7-10.4 mg/dL Total Bilirubin 0.6 0.2-1.0 mg/dL Aspartate Amino Transferase (AST) 20 13-40 U/L Alanine Aminotransferase (ALT) 25 7-40 U/L Alkaline Phosphatase 101 46-116 U/L Total Protein 7.3 5.7-8.2 g/dL Albumin 4.9 H 3.2-4.8 g/dL Lipase 23 12-53 U/L Assessment hx of nyha class III HF ckd cad s/p pci sbo failure to thrive Plan/Recommendation pt high risk from cv complication rate pt had surgery 11 months ago , was in rehab for a long time after pt is non ambulatory and admitted judy 2-3 weeks for Acute HF as her baseline which is bad to begin with pt should proceed to surgery if indicated , possibly tomorrow poor prognosis, hold dapt for now Plan discussed with: Patient KOLTON RAMOS MD Oct 31, 2024 11:47
[2024-10-31] MEDS: CEFEPIME 1GM/ 50ML 50 ML IV SCH (11:50)
[2024-10-31] MEDS: InsuLIN REG 1unit/0.01ml Soln (100units/ml) SC SCH (12:00)
[2024-10-31] MEDS: ACCU-CHEK COMFORT CURVE STRIP VI SCH (12:06)
[2024-10-31] MEDS ORDERED: metroNIDAZOLE 500MG/100ML 100 ML IV SCH (14:00)
[2024-10-31] MEDS: metroNIDAZOLE 500MG/100ML 100 ML IV SCH (17:45)
[2024-10-31] MEDS: ATORVASTATIN 20 MG TAB PO SCH (22:00)
[2024-11-01] VITALS (11 sets, daily range): BP systolic 102–122; BP diastolic 46–61; PULSE 68–76; RESP 16–18; TEMP 97.5–98.8; O2SAT 97–100
[2024-11-01] MEDS: EMPAGLIFLOZIN 10 MG TAB PO SCH (06:47)
[2024-11-01] MEDS ORDERED: PATIENTS OWN MEDICATION (Empagliflozin (Jardiance) 25 MG) PO SCH (07:00)
[2024-11-01 07:23] LABS: Basophils # (auto) 0 10 ^3/uL (0-0.2); Basophils % (auto) 0.5 % (0.0-2.0); Eosinophils # (auto) 0.1 10 ^3/uL (0-0.8); Hematocrit 38.4 % (36.0-46.0); Hemoglobin 12.9 g/dL (12.2-16.2); Lymphocytes # (auto) 2.9 10 ^3/uL (0.4-5.4); Mean Corpuscular Hemoglobin 30.7 pg (28.0-32.0); Mean Corpuscular Hgb Conc. 33.6 g/dL (32.0-36.0); Mean Corpuscular Volume 91.3 fL (80.0-100.0); Monocytes # (auto) 0.4 10 ^3/uL (0-1.3); Monocytes % (auto) 6.8 % (0.0-12.0); Neutrophils % (auto) 46.7 % (37.0-80.0); Nucleated Red Blood Cells % 0.2 %; Platelet Count (auto) 267 10^3/uL (140-450); Red Blood Cells 4.21 10^6/uL (4.0-5.20); Red Cell Distribution Width 14.1 % (11.8-14.3); White Blood Cell 6.5 10^3/uL (4.4-10.8)
[2024-11-01 07:26] LABS: Alanine Aminotransferase 27 U/L (7-40); Albumin 4.2 g/dL (3.2-4.8); Alkaline Phosphatase 83 U/L (46-116); Anion Gap 10 (5-15); Aspartate Aminotransferase 28 U/L (13-40); Calcium 9.9 mg/dL (8.7-10.4); Carbon Dioxide 26 mmol/L (20-31); Chloride 106 mmol/L (98-107); Sodium 142 mmol/L (136-145)
[2024-11-01 07:27] LABS: Bilirubin, Total 0.6 mg/dL (0.2-1.0); Total Protein 6.3 g/dL (5.7-8.2)
[2024-11-01 07:41] LABS: Blood Urea Nitrogen 25 mg/dL (9-23); Glucose 130 mg/dL (74-106)
--- NOTE | 2024-11-01 11:46 | DVHPN2 ---
Progress Note - Dictate Date Seen: Nov 01, 2024 Medical Necessity Reason Pt with a Central, PICC or Fol: No Subjective E: no major events o/n. still c/o abd pain. denies flatus/BM vital signs Vital Sign Date Time Temp Pulse Resp B/P (MAP) Pulse Ox O2 Delivery O2 Flow Rate FiO2 11/01/24 10:15 100 Nasal Cannula 2.0 11/01/24 10:15 28 11/01/24 08:48 97.5 73 16 122/59 (80) 97.5 Total Intake and Output 10/31/24 10/31/24 11/01/24 15:00 23:00 07:00 Intake Total 325 ml 100 ml 0 ml Output Total 550 ml Balance 325 ml 100 ml -550 ml medications Current Medications Medications Dose Ordered Sig/Yesica Route Start Time Stop Time Status Last Admin Dose Admin Sodium Chloride 1,000 ml @ 75 mls/hr [id number] IV 10/31/24 08:00 10/31/24 08:25 75 MLS/HR Morphine Sulfate 2 mg Q30MP PRN IV 10/31/24 08:00 UNV Acetaminophen 650 mg Q6HP PRN PO 10/31/24 08:00 Zolpidem Tartrate 5 mg QHSP PRN PO 10/31/24 08:00 Docusate Sodium 100 mg DAILY PO 10/31/24 10:00 Nitroglycerin 0.4 mg Q5MINP PRN SL 10/31/24 08:00 UNV Ondansetron HCl 4 mg Q4HP PRN IV 10/31/24 08:00 Hold Nitroglycerin 0.4 mg Q5MINP PRN SL 10/31/24 08:00 Morphine Sulfate 2 mg Q30M PRN IV 10/31/24 08:00 Ceftriaxone Sodium 50 ml @ 100 mls/hr DAILY@09 IV 10/31/24 09:00 UNV Azithromycin 250 ml @ 125 mls/hr DAILY IV 10/31/24 10:00 UNV Albuterol 2.5 mg Q4HPRN PRN NEB 10/31/24 08:45 Ipratropium [place] 0.5 mg Q4HPRN PRN NEB 10/31/24 08:45 Metronidazole 100 ml @ 100 mls/hr Q8H IV 10/31/24 17:00 11/01/24 08:50 100 MLS/HR Cefepime HCl 50 ml @ 12.5 mls/hr Q12HR IV 10/31/24 10:00 11/01/24 09:56 12.5 MLS/HR Carvedilol 3.125 mg Q12HR PO 10/31/24 10:00 Furosemide 40 mg DAILY PO 10/31/24 10:00 Losartan Potassium 50 mg DAILY PO 10/31/24 10:00 Pantoprazole Sodium 20 mg DAILY PO 10/31/24 10:00 Hold Atorvastatin Calcium 20 mg HS PO 10/31/24 22:00 Empaglifozin 25 mg QAM PO 11/01/24 07:00 Fluoxetine HCl 40 mg BID PO 10/31/24 10:00 Diagnostic Test (Pha) 1 strip Q6HR 10/31/24 12:00 11/01/24 06:00 1 STRIP Insulin Human Regular Q6HR SC 10/31/24 12:00 Dextrose 50 ml UD PRN IV 10/31/24 08:45 Acetaminophen/ Hydrocodone Bitart 1 tab Q8HPRN PRN PO 10/31/24 21:15 Morphine Sulfate 2 mg Q6HPRN PRN IV 11/01/24 11:45 UNV Potassium Chloride/Dextrose/ Sod Cl 1,000 ml @ 100 mls/hr Q10H IV 11/01/24 11:45 UNV objective GEN: NAD ABD: soft. min TTP. laboratory and microbiology Laboratory Tests 11/01/24 06:37 Test 11/01/24 06:37 Range/Units Serum Glucose 130 H 74-106 mg/dL Assessment/Plan A: 1. Small-bowel obstruction 2. Coronary artery disease with elevated troponins 3. UTI 4. Possible right lobe pneumonia P: 1. KUB 2. cardiac clearance for possible surgical intervention if her symptoms don't improve. Plan discussed with: Patient BRIAN WILKINSON MD Nov 01, 2024 11:46
[2024-11-01] MEDS: MORPHINE SULFATE INJ 2 MG/ml SYRG IV PRN (11:51)
[2024-11-01] MEDS ORDERED: PPN PER PHARMACY 0 ML IV SCH (12:45)
--- NOTE | 2024-11-01 12:53 | DVHPN2 ---
Progress Note Date Seen: Nov 01, 2024 Medical Necessity Reason Pt with a Central, PICC or Fol: No Subjective Other Systems: still no bowel movement pt hungry \ Objective vital signs Vital Sign Date Time Temp Pulse Resp B/P (MAP) Pulse Ox O2 Delivery O2 Flow Rate FiO2 11/01/24 11:51 70 18 105/50 11/01/24 10:15 100 Nasal Cannula 2.0 11/01/24 10:15 28 11/01/24 08:48 97.5 97.5 Total Intake and Output 10/31/24 10/31/24 11/01/24 15:00 23:00 07:00 Intake Total 325 ml 100 ml 0 ml Output Total 550 ml Balance 325 ml 100 ml -550 ml medications Current Medications Medications Dose Ordered Sig/Yesica Route Start Time Stop Time Status Last Admin Dose Admin Morphine Sulfate 2 mg Q30MP PRN IV 10/31/24 08:00 UNV Acetaminophen 650 mg Q6HP PRN PO 10/31/24 08:00 Zolpidem Tartrate 5 mg QHSP PRN PO 10/31/24 08:00 Docusate Sodium 100 mg DAILY PO 10/31/24 10:00 Nitroglycerin 0.4 mg Q5MINP PRN SL 10/31/24 08:00 UNV Ondansetron HCl 4 mg Q4HP PRN IV 10/31/24 08:00 Hold Nitroglycerin 0.4 mg Q5MINP PRN SL 10/31/24 08:00 Morphine Sulfate 2 mg Q30M PRN IV 10/31/24 08:00 Ceftriaxone Sodium 50 ml @ 100 mls/hr DAILY@09 IV 10/31/24 09:00 UNV Azithromycin 250 ml @ 125 mls/hr DAILY IV 10/31/24 10:00 UNV Albuterol 2.5 mg Q4HPRN PRN NEB 10/31/24 08:45 Ipratropium [place] 0.5 mg Q4HPRN PRN NEB 10/31/24 08:45 Metronidazole 100 ml @ 100 mls/hr Q8H IV 10/31/24 17:00 11/01/24 08:50 100 MLS/HR Cefepime HCl 50 ml @ 12.5 mls/hr Q12HR IV 10/31/24 10:00 11/01/24 09:56 12.5 MLS/HR Carvedilol 3.125 mg Q12HR PO 10/31/24 10:00 Furosemide 40 mg DAILY PO 10/31/24 10:00 Losartan Potassium 50 mg DAILY PO 10/31/24 10:00 Pantoprazole Sodium 20 mg DAILY PO 10/31/24 10:00 Hold Atorvastatin Calcium 20 mg HS PO 10/31/24 22:00 Empaglifozin 25 mg QAM PO 11/01/24 07:00 Fluoxetine HCl 40 mg BID PO 10/31/24 10:00 Diagnostic Test (Pha) 1 strip Q6HR 10/31/24 12:00 11/01/24 11:51 1 STRIP Insulin Human Regular Q6HR SC 10/31/24 12:00 Dextrose 50 ml UD PRN IV 10/31/24 08:45 Acetaminophen/ Hydrocodone Bitart 1 tab Q8HPRN PRN PO 10/31/24 21:15 Morphine Sulfate 2 mg Q6HPRN PRN IV 11/01/24 11:45 11/01/24 11:51 2 MG Potassium Chloride/Dextrose/ Sod Cl 1,000 ml @ 100 mls/hr Q10H IV 11/01/24 11:45 Examination: GENERAL:Abnormal, HEENT:Abnormal, LUNGS:Abnormal, CVS:Abnormal, ABDOMEN:Abnormal laboratory and microbiology Laboratory Tests 11/01/24 06:37 Test 11/01/24 06:37 Range/Units Serum Glucose 130 H 74-106 mg/dL Problem List/Assessment/Plan Problem List/Assessment/Plan pt may need surgery possibly tomorrow with dr Cardoso pt is high risk from cv complication rate, pt should proceed to surgery if indicated per general surgery pt had sbo surgery 11 months ago and had prolonged hospital and SNF treatment, her baseline is very poor as per note 10/31 hold dapt Plan discussed with: Patient Date of Service: Nov 01, 2024 Billing Provider: KOLTON RAMOS MD Common Visit Codes: NOT BILLABLE KOLTON RAMOS MD Nov 01, 2024 12:53
[2024-11-01] MEDS: D5W/SOD CHL 0.45%/KCL 20MEQ 1,000 ML IV SCH (13:46)
--- NOTE | 2024-11-01 13:47 | DVH ---
EXAM: XY KUB ABDOMEN SINGLE VIEW HISTORY: SBO COMPARISON: XY KUB ABDOMEN SINGLE VIEW on DOS: 01/13/24, XY KUB ABDOMEN SINGLE VIEW on DOS: 12/13/23, X Y KUB ABDOMEN SINGLE VIEW on DOS: 04/12/23 TECHNIQUE: Single AP of the abdomen and pelvis was obtained. Findings: Frontal view of the abdomen demonstrates a nonobstructive bowel gas pattern. No visualized renal calc yovani. There is no evidence of an acute fracture, dislocation, blastic, or lytic lesions. The visualized portions of the lung bases are unremarkable. No radiopaque foreign bodies. No superficial soft tissue abnormalities. Impression: 1. Nonobstructive bowel gas pattern. 2. No visualized renal calculi.
[2024-11-01 13:53] LABS: Magnesium 2.3 mg/dL (1.6-2.6)
[2024-11-01 13:55] LABS: Phosphorus 3.4 mg/dL (2.4-5.1)
--- NOTE | 2024-11-01 15:26 | DVHPN2 ---
Subjective Seen and examined at bedside. Still has NGT. No bowel movement. Changes from previous H/P or p: No Changes Eyes: No Pain, No Vision change, No Conjunctivae inflammation, No Eyelid inflammation, No Other, No Redness ENT: No Ear pain, No Ear discharge, No Nose pain, No Nose discharge, No Nose congestion, No Mouth pain, No Mouth swelling, No Throat pain, No Throat swelling, No Other Cardiovascular: No Chest Pain, No Palpitations, No Orthopnea, No Paroxysmal Noc. Dyspnea, No Edema, No Lt Headedness, No Other Respiratory: No Cough, No Dry, No Shortness of breath, No SOB with excertion, No Wheezing, No Hemoptysis, No Pleuritic Pain, No Sputum, No Other Gastrointestinal: No Nausea, No Vomiting; Abdominal Pain; No Diarrhea, No Constipation, No Melena, No Hematochezia, No Other Genitourinary: No Dysuria, No Frequency, No Incontinence, No Hematuria, No Retention, No Other Musculoskeletal: No other, No neck pain, No shoulder pain, No arm pain, No back pain, No hand pain, No leg pain, No foot pain Skin: No Rash, No Lesions, No Jaundice, No Bruising, No Other Objective Vitals Vital Signs Date Time Temp Pulse Resp B/P (MAP) Pulse Ox O2 Delivery O2 Flow Rate FiO2 11/01/24 13:00 98.3 76 17 106/52 (70) 100 98.3 11/01/24 10:15 Nasal Cannula 2.0 11/01/24 10:15 28 Intake/Output Intake and Output 11/01/24 07:00 Intake Total 425 ml Output Total 550 ml Balance -125 ml Intake Oral 0 ml IV Total 425 ml Output Urine Total 550 ml Exam Gen: in bed NAD Cvs: N S1/S2, RRR Resp: Diminished Abd: No bowel sounds Dictaphone Typist: AAO x 4 Medications Current Medications Medications Dose Ordered Sig/Yesica Route Start Time Stop Time Status Last Admin Dose Admin Morphine Sulfate 2 mg Q30MP PRN IV 10/31/24 08:00 UNV Acetaminophen 650 mg Q6HP PRN PO 10/31/24 08:00 Zolpidem Tartrate 5 mg QHSP PRN PO 10/31/24 08:00 Docusate Sodium 100 mg DAILY PO 10/31/24 10:00 Nitroglycerin 0.4 mg Q5MINP PRN SL 12/16/24 08:00 UNV Ondansetron HCl 4 mg Q4HP PRN IV 10/31/24 08:00 Hold Nitroglycerin 0.4 mg Q5MINP PRN SL 10/31/24 08:00 Morphine Sulfate 2 mg Q30M PRN IV 10/31/24 08:00 Ceftriaxone Sodium 50 ml @ 100 mls/hr DAILY@09 IV 10/31/24 09:00 UNV Azithromycin 250 ml @ 125 mls/hr DAILY IV 10/31/24 10:00 UNV Albuterol 2.5 mg Q4HPRN PRN NEB 10/31/24 08:45 Ipratropium [place] 0.5 mg Q4HPRN PRN NEB 10/31/24 08:45 Metronidazole 100 ml @ 100 mls/hr Q8H IV 10/31/24 17:00 11/01/24 08:50 100 MLS/HR Cefepime HCl 50 ml @ 12.5 mls/hr Q12HR IV 10/31/24 10:00 11/01/24 09:56 12.5 MLS/HR Carvedilol 3.125 mg Q12HR PO 10/31/24 10:00 Furosemide 40 mg DAILY PO 10/31/24 10:00 Losartan Potassium 50 mg DAILY PO 10/31/24 10:00 Pantoprazole Sodium 20 mg DAILY PO 10/31/24 10:00 Hold Atorvastatin Calcium 20 mg HS PO 10/31/24 22:00 Empaglifozin 25 mg QAM PO 11/01/24 07:00 Fluoxetine HCl 40 mg BID PO 10/31/24 10:00 Diagnostic Test (Pha) 1 strip Q6HR 10/31/24 12:00 11/01/24 11:51 1 STRIP Insulin Human Regular Q6HR SC 10/31/24 12:00 Dextrose 50 ml UD PRN IV 10/31/24 08:45 Acetaminophen/ Hydrocodone Bitart 1 tab Q8HPRN PRN PO 10/31/24 21:15 Morphine Sulfate 2 mg Q6HPRN PRN IV 11/01/24 11:45 11/01/24 11:51 2 MG Potassium Chloride/Dextrose/ Sod Cl 1,000 ml @ 100 mls/hr Q10H IV 11/01/24 11:45 11/01/24 13:46 100 MLS/HR Amino Acids 0 ml @ 0 mls/hr PER PHARMACY IV 11/01/24 12:45 Amino Acids/ Electrolytes/ Dextrose 1,000 ml @ 41 mls/hr DAILY@2200 IV 11/01/24 22:00 11/02/24 21:59 Laboratory Results Laboratory Tests 11/01/24 06:37 Chemistry Test 11/01/24 06:37 Albumin 4.2 g/dL (3.2-4.8) Calcium Level 9.9 mg/dL (8.7-10.4) Magnesium Level 2.3 mg/dL (1.6-2.6) Phosphorus Level 3.4 mg/dL (2.4-5.1) Total Protein 6.3 g/dL (5.7-8.2) LFT Test 11/01/24 06:37 Alanine Aminotransferase (ALT) 27 U/L (7-40) Alkaline Phosphatase 83 U/L (46-116) Aspartate Amino Transferase (AST) 28 U/L (13-40) Total Bilirubin 0.6 mg/dL (0.2-1.0) Urinalysis Test 10/31/24 02:53 Urine Color Light-yellow (Yellow) Urine Clarity Turbid (Clear) H Urine pH 5.5 (5.0-9.0) Urine Specific [place] 1.027 (1.001-1.035) Urine Protein Trace (Negative) H Urine Ketones Negative (Negative) Urine Blood Trace /uL (Negative) H Urine Nitrite Negative (Negative) Urine Bilirubin Negative (Negative) Urine Urobilinogen Normal mg/dL (Negative) Urine Leukocyte Esterase 2+ /uL (Negative) Urine RBC 3 /hpf (0 - 4) Urine WBC 158 /hpf (0 - 5) Urine WBC Clumps Present /hpf (None Seen) Urine Squamous Epithelial Cells Few /hpf (<5) Urine Bacteria None seen /hpf (None Seen) Urine Yeast (Budding) Moderate /hpf (None Seen) Urine Glucose 4+ mg/dL (Normal) H Assessment/Plan Assessment/Plan # Small Bowel Obstruction - NGT - Surgical Cx # Left Adrenal Mass? - Outpatient MRI # Chronic Systolic CHF - Monitor for fluid overload # DM2 A1c 9.3 # Acute Cystitis - Abx # Tropenemia # Goals of care >18 mins FULL CODE Plan discussed with: Patient My Orders Orders - NUHA CORREIA MD Procedure Category Date Status Time Basic Metabolic Panel LAB 11/02/24 Verified 04:00 Complete Blood Count LAB 11/02/24 Verified 04:00 B-Type Natriuretic LAB 11/02/24 Verified Peptide 04:00 Date of Service: Nov 01, 2024 Billing Provider: NUHA CORREIA MD Common Visit Codes: [id number] INP/OBS CARE(HIGH) Secondary Visit Codes: [id number] CARE PLAN 30 MINUTES NUHA CORREIA MD Nov 01, 2024 15:26
--- NOTE | 2024-11-01 16:38 | DVH ---
Procedure: CT CHEST WITHOUT CONTRAST Reason for study/Clinical History: 68 years old, Female; Right PNA. Comparison Study: None available at time of dictation. Exam Date: 11/01/2024 04:15 PM TECHNIQUE: Multidetector CT of the chest was performed from the lung apices to the upper abdomen with out the use of intravenous contract. Axial, coronal and sagittal multiplanar reformats were performed . Radiation dose Information: CT Dose: CTDI volume is 8 mGy. Dose-length product is 336 mGy*cm The dose indicators for CT are the volume computed Tomography (CT) dose Index (CTDIvol) and the dose Length product (DLP), and are measured in units of mGy and mGy-cm, respectively. These indicators are not patient dose, but values generated from the CT scanner acquisition factors. The report includes radiation exposure data for exposures received during this examination. FINDINGS: Lower neck: Nasogastric tube in place. Lungs: Mild atelectasis and scarring in the lung bases. Heart/Vascular Structures: Normal heart size. No pericardial effusion. Lymph Nodes: No adenopathy Pleura: No pleural effusion or significant pneumothorax. Musculoskeletal: No acute osseous abnormality. Soft tissues: Normal. Upper abdomen: Limited portions of the upper abdomen are unremarkable. IMPRESSION: 1. Mild atelectasis and scarring in the lung bases. No focal consolidation to suggest pneumonia. Radiation optimization: All CT scans at this facility use at least one of these dose optimization julian hniques: Automated exposure control mA and/or kV adjustment per patient size (includes targeted exams where dose is matched to clinical indication) or iterative reconstruction. HS:Y
[2024-11-01] MEDS: AMINO ACID INFUSION IN D10W 1,000 ML IV SCH (21:19)
[2024-11-01] MEDS: SODIUM CHLORIDE 0.9% 1,000 ML IV SCH (21:20)
[2024-11-02] VITALS (12 sets, daily range): BP systolic 82–119; BP diastolic 41–59; PULSE 64–70; RESP 14–18; TEMP 97.3–98.3; O2SAT 97–100
--- NOTE | 2024-11-02 05:15 | DVH ---
Exam: XY KUB ABDOMEN SINGLE VIEW Indication: sbo f/u Comparison: XY KUB ABDOMEN SINGLE VIEW on DOS: 11/01/24, XY KUB ABDOMEN SINGLE VIEW on DOS: 01/13/24, XY KUB ABDOMEN SINGLE VIEW on DOS: 12/13/23 Technique: 2 radiographic views of the abdomen. Findings: Stimulator device overlies the central abdomen. Nonspecific bowel-gas pattern. There is no definite evidence for pneumoperitoneum. No abnormal calcifications noted. Impression: Nonspecific bowel-gas pattern, unchanged.
[2024-11-02 07:32] LABS: Alanine Aminotransferase 29 U/L (7-40); Albumin 3.9 g/dL (3.2-4.8); Alkaline Phosphatase 72 U/L (46-116); Anion Gap 7 (5-15); BUN/Creatinine Ratio 24.7 (10.0-20.0); Bilirubin, Total 0.5 mg/dL (0.2-1.0); Blood Urea Nitrogen 20 mg/dL (9-23); Calcium 9.6 mg/dL (8.7-10.4); Carbon Dioxide 25 mmol/L (20-31); Magnesium 2.2 mg/dL (1.6-2.6); Phosphorus 2.9 mg/dL (2.4-5.1); Potassium 3.9 mmol/L (3.5-5.1); Sodium 140 mmol/L (136-145); Total Protein 6.2 g/dL (5.7-8.2)
--- NOTE | 2024-11-02 07:37 | DVHPN2 ---
Progress Note - Dictate Date Seen: Nov 02, 2024 Medical Necessity Reason Pt with a Central, PICC or Fol: No Subjective E: no major events o/n. denies N/V. vital signs Vital Sign Date Time Temp Pulse Resp B/P (MAP) Pulse Ox O2 Delivery O2 Flow Rate FiO2 11/02/24 05:00 97.3 70 18 101/48 (65) 100 97.3 11/01/24 20:00 Nasal Cannula* 2 28 Total Intake and Output 11/01/24 11/01/24 11/02/24 14:59 22:59 06:59 Intake Total 150 ml 600 ml 755 ml Output Total 350 ml 350 ml Balance 150 ml 250 ml 405 ml medications Current Medications Medications Dose Ordered Sig/Yesica Route Start Time Stop Time Status Last Admin Dose Admin Morphine Sulfate 2 mg Q30MP PRN IV 10/31/24 08:00 UNV Acetaminophen 650 mg Q6HP PRN PO 10/31/24 08:00 Zolpidem Tartrate 5 mg QHSP PRN PO 10/31/24 08:00 Docusate Sodium 100 mg DAILY PO 10/31/24 10:00 Nitroglycerin 0.4 mg Q5MINP PRN SL 10/31/24 08:00 UNV Ondansetron HCl 4 mg Q4HP PRN IV 10/31/24 08:00 Hold Nitroglycerin 0.4 mg Q5MINP PRN SL 10/31/24 08:00 Morphine Sulfate 2 mg Q30M PRN IV 10/31/24 08:00 Ceftriaxone Sodium 50 ml @ 100 mls/hr DAILY@09 IV 10/31/24 09:00 UNV Azithromycin 250 ml @ 125 mls/hr DAILY IV 10/31/24 10:00 UNV Albuterol 2.5 mg Q4HPRN PRN NEB 10/31/24 08:45 Ipratropium [place] 0.5 mg Q4HPRN PRN NEB 10/31/24 08:45 Metronidazole 100 ml @ 100 mls/hr Q8H IV 10/31/24 17:00 11/02/24 01:43 100 MLS/HR Cefepime HCl 50 ml @ 12.5 mls/hr Q12HR IV 10/31/24 10:00 11/01/24 21:37 12.5 MLS/HR Furosemide 40 mg DAILY PO 10/31/24 10:00 Losartan Potassium 50 mg DAILY PO 10/31/24 10:00 Pantoprazole Sodium 20 mg DAILY PO 10/31/24 10:00 Hold Atorvastatin Calcium 20 mg HS PO 10/31/24 22:00 Fluoxetine HCl 40 mg BID PO 10/31/24 10:00 Diagnostic Test (Pha) 1 strip Q6HR 10/31/24 12:00 11/02/24 07:02 1 STRIP Insulin Human Regular Q6HR SC 10/31/24 12:00 11/02/24 07:03 2 UNITS Dextrose 50 ml UD PRN IV 10/31/24 08:45 Acetaminophen/ Hydrocodone Bitart 1 tab Q8HPRN PRN PO 10/31/24 21:15 Morphine Sulfate 2 mg Q6HPRN PRN IV 11/01/24 11:45 11/02/24 00:23 2 MG Amino Acids 0 ml @ 0 mls/hr PER PHARMACY IV 11/01/24 12:45 Amino Acids/ Electrolytes/ Dextrose 1,000 ml @ 41 mls/hr DAILY@2200 IV 11/01/24 22:00 11/02/24 21:59 11/01/24 21:19 41 MLS/HR Sodium Chloride 1,000 ml @ 59 mls/hr [id number] IV 11/01/24 19:45 11/01/24 21:20 59 MLS/HR objective GEN: NAD ABD: soft. min TTP. KUB: unremarkable. laboratory and microbiology Laboratory Tests 11/01/24 06:37 Test 11/02/24 06:28 Range/Units Serum Glucose Pending Assessment/Plan A: 1. resolved pSBO 2. Coronary artery disease with elevated troponins 3. UTI 4. Possible right lobe pneumonia P: 1. dc ngt and start clear liquid diet. Plan discussed with: Patient BRIAN WILKINSON MD Nov 02, 2024 07:37
[2024-11-02 07:46] LABS: Aspartate Aminotransferase 42 U/L (13-40); Chloride 108 mmol/L (98-107); Glucose 143 mg/dL (74-106)
--- NOTE | 2024-11-02 11:38 | DVHPN2 ---
Progress Note Date Seen: Nov 02, 2024 Medical Necessity Reason Pt with a Central, PICC or Fol: No Subjective Patient reports: Feels better Objective vital signs Vital Sign Date Time Temp Pulse Resp B/P (MAP) Pulse Ox O2 Delivery O2 Flow Rate FiO2 11/02/24 09:45 Nasal Cannula* 3 32 11/02/24 09:24 69 18 119/59 11/02/24 08:45 97.6 100 97.6 Total Intake and Output 11/01/24 11/01/24 11/02/24 15:00 23:00 07:00 Intake Total 150 ml 600 ml 755 ml Output Total 350 ml 350 ml Balance 150 ml 250 ml 405 ml medications Current Medications Medications Dose Ordered Sig/Yesica Route Start Time Stop Time Status Last Admin Dose Admin Morphine Sulfate 2 mg Q30MP PRN IV 10/31/24 08:00 UNV Acetaminophen 650 mg Q6HP PRN PO 10/31/24 08:00 Zolpidem Tartrate 5 mg QHSP PRN PO 10/31/24 08:00 Docusate Sodium 100 mg DAILY PO 10/31/24 10:00 11/02/24 10:55 100 MG Nitroglycerin 0.4 mg Q5MINP PRN SL 10/31/24 08:00 UNV Ondansetron HCl 4 mg Q4HP PRN IV 10/31/24 08:00 Hold Nitroglycerin 0.4 mg Q5MINP PRN SL 10/31/24 08:00 Morphine Sulfate 2 mg Q30M PRN IV 10/31/24 08:00 Ceftriaxone Sodium 50 ml @ 100 mls/hr DAILY@09 IV 10/31/24 09:00 UNV Azithromycin 250 ml @ 125 mls/hr DAILY IV 10/31/24 10:00 UNV Albuterol 2.5 mg Q4HPRN PRN NEB 10/31/24 08:45 Ipratropium [place] 0.5 mg Q4HPRN PRN NEB 10/31/24 08:45 Metronidazole 100 ml @ 100 mls/hr Q8H IV 10/31/24 17:00 11/02/24 09:08 100 MLS/HR Cefepime HCl 50 ml @ 12.5 mls/hr Q12HR IV 10/31/24 10:00 11/02/24 10:56 12.5 MLS/HR Furosemide 40 mg DAILY PO 10/31/24 10:00 11/02/24 08:53 40 MG Losartan Potassium 50 mg DAILY PO 10/31/24 10:00 Pantoprazole Sodium 20 mg DAILY PO 10/31/24 10:00 Hold Atorvastatin Calcium 20 mg HS PO 10/31/24 22:00 Fluoxetine HCl 40 mg BID PO 10/31/24 10:00 11/02/24 08:52 40 MG Diagnostic Test (Pha) 1 strip Q6HR 10/31/24 12:00 11/02/24 07:02 1 STRIP Insulin Human Regular Q6HR SC 10/31/24 12:00 11/02/24 07:03 2 UNITS Dextrose 50 ml UD PRN IV 10/31/24 08:45 Acetaminophen/ Hydrocodone Bitart 1 tab Q8HPRN PRN PO 10/31/24 21:15 Morphine Sulfate 2 mg Q6HPRN PRN IV 11/01/24 11:45 11/02/24 08:54 2 MG Amino Acids 0 ml @ 0 mls/hr PER PHARMACY IV 11/01/24 12:45 Amino Acids/ Electrolytes/ Dextrose 1,000 ml @ 41 mls/hr DAILY@2200 IV 11/01/24 22:00 11/02/24 21:59 11/01/24 21:19 41 MLS/HR Sodium Chloride 1,000 ml @ 59 mls/hr [id number] IV 11/01/24 19:45 11/01/24 21:20 59 MLS/HR Fat Emulsion Intravenous 50 ml/ Sodium Acetate 20 meq/Potassium Acetate 10 meq/ Potassium Phosphate 26.4 meq/Magnesium Sulfate 4 meq/ Multivitamins 10 ml/Chromium/ Copper/Manganese/ Zinc 1 ml/Amino Acids/Dextrose/ Purified Water 1,283 ml @ 53 mls/hr [id number] IV 11/02/24 22:00 11/03/24 22:12 Examination: GENERAL:Abnormal, HEENT:Abnormal, LUNGS:Abnormal, CVS:Abnormal, ABDOMEN:Abnormal laboratory and microbiology Laboratory Tests 11/02/24 06:28 11/01/24 06:37 Test 11/02/24 06:28 Range/Units Serum Glucose 143 H 74-106 mg/dL Microbiology Date/Time Source Procedure Growth Status 10/31/24 22:00 Nose MRSA Screen - Final Complete Problem List/Assessment/Plan Problem List/Assessment/Plan pt may need surgery possibly tomorrow with dr Cardoso pt is high risk from cv complication rate, pt should proceed to surgery if indicated per general surgery pt had sbo surgery 11 months ago and had prolonged hospital and SNF treatment, her baseline is very poor as per note 10/31 hold dapt dc NGT and conservative management non operative per notes Plan discussed with: Patient Dietary Evaluation Review Comments: 1) If pt appetite remains poor, increase TPN to meet at least 75% of estimated needs 2) Advance pt diet when medically feasible to a CCHO 60g/Cardiac diet 3) Once meals are advanced onsider Glucerna nutrition shake 1 ctn TID with meals if pt appetite remains poor 4) Continue current plan of care Expected Outcomes/Goals: 1) Pt appetite to improve 2) F/U in 2-3 days Date of Service: Nov 02, 2024 Billing Provider: KOLTON RAMOS MD Common Visit Codes: NOT BILLABLE KOLTON RAMOS MD Nov 02, 2024 11:38
--- NOTE | 2024-11-02 13:24 | DVHPN2 ---
Subjective Seen and examined at bedside. DC NGT. Start clear liquids. Changes from previous H/P or p: No Changes Eyes: No Pain, No Vision change, No Conjunctivae inflammation, No Eyelid inflammation, No Other, No Redness ENT: No Ear pain, No Ear discharge, No Nose pain, No Nose discharge, No Nose congestion, No Mouth pain, No Mouth swelling, No Throat pain, No Throat swelling, No Other Cardiovascular: No Chest Pain, No Palpitations, No Orthopnea, No Paroxysmal Noc. Dyspnea, No Edema, No Lt Headedness, No Other Respiratory: No Cough, No Dry, No Shortness of breath, No SOB with excertion, No Wheezing, No Hemoptysis, No Pleuritic Pain, No Sputum, No Other Gastrointestinal: No Nausea, No Vomiting, No Diarrhea, No Constipation, No Melena, No Hematochezia, No Other Genitourinary: No Dysuria, No Frequency, No Incontinence, No Hematuria, No Retention, No Other Musculoskeletal: No other, No neck pain, No shoulder pain, No arm pain, No back pain, No hand pain, No leg pain, No foot pain Skin: No Rash, No Lesions, No Jaundice, No Bruising, No Other Objective Vitals Vital Signs Date Time Temp Pulse Resp B/P (MAP) Pulse Ox O2 Delivery O2 Flow Rate FiO2 11/02/24 13:10 98.2 64 16 93/41 (58) 100 98.2 11/02/24 09:45 Nasal Cannula* 3 32 Intake/Output Intake and Output 11/02/24 07:00 Intake Total 1505 ml Output Total 700 ml Balance 805 ml Intake Oral 0 ml IV Total 1505 ml Output Urine Total 700 ml Exam Gen: in bed NAD Cvs: N S1/S2, RRR Resp: Diminished Abd: No bowel sounds [employer]: AAO x 4 Medications Current Medications Medications Dose Ordered Sig/Yesica Route Start Time Stop Time Status Last Admin Dose Admin Morphine Sulfate 2 mg Q30MP PRN IV 10/31/24 08:00 UNV Acetaminophen 650 mg Q6HP PRN PO 10/31/24 08:00 Zolpidem Tartrate 5 mg QHSP PRN PO 10/31/24 08:00 Docusate Sodium 100 mg DAILY PO 10/31/24 10:00 11/02/24 10:55 100 MG Nitroglycerin 0.4 mg Q5MINP PRN SL 10/31/24 08:00 UNV Ondansetron HCl 4 mg Q4HP PRN IV 10/31/24 08:00 Hold Nitroglycerin 0.4 mg Q5MINP PRN SL 10/31/24 08:00 Morphine Sulfate 2 mg Q30M PRN IV 10/31/24 08:00 Ceftriaxone Sodium 50 ml @ 100 mls/hr DAILY@09 IV 10/31/24 09:00 UNV Azithromycin 250 ml @ 125 mls/hr DAILY IV 10/31/24 10:00 UNV Albuterol 2.5 mg Q4HPRN PRN NEB 10/31/24 08:45 Ipratropium [place] 0.5 mg Q4HPRN PRN NEB 10/31/24 08:45 Metronidazole 100 ml @ 100 mls/hr Q8H IV 10/31/24 17:00 11/02/24 09:08 100 MLS/HR Cefepime HCl 50 ml @ 12.5 mls/hr Q12HR IV 10/31/24 10:00 11/02/24 10:56 12.5 MLS/HR Furosemide 40 mg DAILY PO 10/31/24 10:00 11/02/24 08:53 40 MG Losartan Potassium 50 mg DAILY PO 10/31/24 10:00 Pantoprazole Sodium 20 mg DAILY PO 10/31/24 10:00 Hold Atorvastatin Calcium 20 mg HS PO 10/31/24 22:00 Fluoxetine HCl 40 mg BID PO 10/31/24 10:00 11/02/24 08:52 40 MG Diagnostic Test (Pha) 1 strip Q6HR 10/31/24 12:00 11/02/24 11:39 1 STRIP Insulin Human Regular Q6HR SC 10/31/24 12:00 11/02/24 11:39 4 UNITS Dextrose 50 ml UD PRN IV 10/31/24 08:45 Acetaminophen/ Hydrocodone Bitart 1 tab Q8HPRN PRN PO 10/31/24 21:15 Morphine Sulfate 2 mg Q6HPRN PRN IV 11/01/24 11:45 11/02/24 08:54 2 MG Amino Acids 0 ml @ 0 mls/hr PER PHARMACY IV 11/01/24 12:45 Amino Acids/ Electrolytes/ Dextrose 1,000 ml @ 41 mls/hr DAILY@2200 IV 11/01/24 22:00 11/02/24 21:59 11/01/24 21:19 41 MLS/HR Sodium Chloride 1,000 ml @ 59 mls/hr [id number] IV 11/01/24 19:45 11/02/24 21:59 11/01/24 21:20 59 MLS/HR Fat Emulsion Intravenous 50 ml/ Sodium Acetate 20 meq/Potassium Acetate 10 meq/ Potassium Phosphate 26.4 meq/Magnesium Sulfate 4 meq/ Multivitamins 10 ml/Chromium/ Copper/Manganese/ Zinc 1 ml/Amino Acids/Dextrose/ Purified Water 1,283 ml @ 53 mls/hr [id number] IV 11/02/24 22:00 11/03/24 22:12 Sodium Chloride 1,000 ml @ 50 mls/hr Q20H IV 11/02/24 22:00 Laboratory Results Laboratory Tests 11/01/24 06:37 11/02/24 06:28 Chemistry Test 11/02/24 06:28 Albumin 3.9 g/dL (3.2-4.8) Calcium Level 9.6 mg/dL (8.7-10.4) Magnesium Level 2.2 mg/dL (1.6-2.6) Phosphorus Level 2.9 mg/dL (2.4-5.1) Total Protein 6.2 g/dL (5.7-8.2) Cardiac Markers Test 11/02/24 06:28 B-Type Natriuretic Peptide 403.26 pg/mL (0-100) LFT Test 11/02/24 06:28 Alanine Aminotransferase (ALT) 29 U/L (7-40) Alkaline Phosphatase 72 U/L (46-116) Aspartate Amino Transferase (AST) 42 U/L (13-40) H Total Bilirubin 0.5 mg/dL (0.2-1.0) Urinalysis Test 10/31/24 02:53 Urine Color Light-yellow (Yellow) Urine Clarity Turbid (Clear) H Urine pH 5.5 (5.0-9.0) Urine Specific [place] 1.027 (1.001-1.035) Urine Protein Trace (Negative) H Urine Ketones Negative (Negative) Urine Blood Trace /uL (Negative) H Urine Nitrite Negative (Negative) Urine Bilirubin Negative (Negative) Urine Urobilinogen Normal mg/dL (Negative) Urine Leukocyte Esterase 2+ /uL (Negative) Urine RBC 3 /hpf (0 - 4) Urine WBC 158 /hpf (0 - 5) Urine WBC Clumps Present /hpf (None Seen) Urine Squamous Epithelial Cells Few /hpf (<5) Urine Bacteria None seen /hpf (None Seen) Urine Yeast (Budding) Moderate /hpf (None Seen) Urine Glucose 4+ mg/dL (Normal) H Microbiology Microbiology Date/Time Source Procedure Growth Status 10/31/24 22:00 Nose MRSA Screen - Final Complete Assessment/Plan Assessment/Plan # Small Bowel Obstruction - NGT DC - Surgical Cx - Start clears # Left Adrenal Mass? - Outpatient MRI # Chronic Systolic CHF - Monitor for fluid overload # DM2 A1c 9.3 # Acute Cystitis - Abx # Tropenemia # Goals of care >18 mins FULL CODE Plan discussed with: Patient My Orders Orders - NUHA CORREIA MD Procedure Category Date Status Time Chest Without Contrast CT 11/01/24 Resulted 15:23 Date of Service: Nov 02, 2024 Billing Provider: NUHA CORREIA MD Common Visit Codes: [id number] INP/OBS CARE(HIGH) NUHA CORREIA MD Nov 02, 2024 13:24
[2024-11-02] MEDS: SODIUM CHLORIDE 0.9% 1,000 ML IV SCH (22:00)
[2024-11-02] MEDS: PPN PER PHARMACY IV NR (22:03)
[2024-11-03] VITALS (8 sets, daily range): BP systolic 95–118; BP diastolic 55–72; PULSE 61–97; RESP 17–19; TEMP 97.9–98.4; O2SAT 98–99
[2024-11-03] MEDS: HYDROcodone-ACET 5/325MG TAB PO PRN (02:04)
[2024-11-03 07:07] LABS: Alanine Aminotransferase 30 U/L (7-40); Albumin 3.7 g/dL (3.2-4.8); Alkaline Phosphatase 65 U/L (46-116); Anion Gap 8 (5-15); Aspartate Aminotransferase 38 U/L (13-40); BUN/Creatinine Ratio 23.3 (10.0-20.0); Blood Urea Nitrogen 17 mg/dL (9-23); Calcium 9.3 mg/dL (8.7-10.4); Carbon Dioxide 24 mmol/L (20-31); Chloride 105 mmol/L (98-107); Potassium 3.7 mmol/L (3.5-5.1); Sodium 137 mmol/L (136-145); Triglycerides 65 mg/dL (< 150)
[2024-11-03 07:08] LABS: Bilirubin, Total 0.5 mg/dL (0.2-1.0); Phosphorus 2.7 mg/dL (2.4-5.1); Total Protein 5.9 g/dL (5.7-8.2)
[2024-11-03 07:11] LABS: Glucose 184 mg/dL (74-106)
--- NOTE | 2024-11-03 08:22 | DVHPN2 ---
Progress Note - Dictate Date Seen: Nov 03, 2024 Medical Necessity Reason Pt with a Central, PICC or Fol: No Subjective E: no major events o/n. feels about the same. jerome clear liquid diet. +flatus vital signs Vital Sign Date Time Temp Pulse Resp B/P (MAP) Pulse Ox O2 Delivery O2 Flow Rate FiO2 11/03/24 07:30 Room Air* 0 21 11/03/24 06:38 68 14 102/61 11/03/24 05:00 98.0 99 98.0 Total Intake and Output 11/02/24 11/02/24 11/03/24 14:59 22:59 06:59 Intake Total 100 ml 900 ml 600 ml Output Total 1600 ml 550 ml Balance 100 ml -700 ml 50 ml medications Current Medications Medications Dose Ordered Sig/Yesica Route Start Time Stop Time Status Last Admin Dose Admin Morphine Sulfate 2 mg Q30MP PRN IV 10/31/24 08:00 UNV Acetaminophen 650 mg Q6HP PRN PO 10/31/24 08:00 Zolpidem Tartrate 5 mg QHSP PRN PO 10/31/24 08:00 Docusate Sodium 100 mg DAILY PO 10/31/24 10:00 11/02/24 10:55 100 MG Nitroglycerin 0.4 mg Q5MINP PRN SL 10/31/24 08:00 UNV Ondansetron HCl 4 mg Q4HP PRN IV 10/31/24 08:00 Hold Nitroglycerin 0.4 mg Q5MINP PRN SL 10/31/24 08:00 Morphine Sulfate 2 mg Q30M PRN IV 10/31/24 08:00 Ceftriaxone Sodium 50 ml @ 100 mls/hr DAILY@09 IV 10/31/24 09:00 UNV Azithromycin 250 ml @ 125 mls/hr DAILY IV 10/31/24 10:00 UNV Albuterol 2.5 mg Q4HPRN PRN NEB 10/31/24 08:45 Cancel Ipratropium [place] 0.5 mg Q4HPRN PRN NEB 10/31/24 08:45 Cancel Metronidazole 100 ml @ 100 mls/hr Q8H IV 10/31/24 17:00 11/03/24 02:44 100 MLS/HR Cefepime HCl 50 ml @ 12.5 mls/hr Q12HR IV 10/31/24 10:00 11/02/24 21:57 12.5 MLS/HR Furosemide 40 mg DAILY PO 10/31/24 10:00 11/02/24 08:53 40 MG Losartan Potassium 50 mg DAILY PO 10/31/24 10:00 Pantoprazole Sodium 20 mg DAILY PO 10/31/24 10:00 Hold Atorvastatin Calcium 20 mg HS PO 10/31/24 22:00 11/02/24 21:56 20 MG Fluoxetine HCl 40 mg BID PO 10/31/24 10:00 11/02/24 21:56 40 MG Diagnostic Test (Pha) 1 strip Q6HR 10/31/24 12:00 11/03/24 05:46 1 STRIP Insulin Human Regular Q6HR SC 10/31/24 12:00 11/03/24 05:51 3 UNITS Dextrose 50 ml UD PRN IV 10/31/24 08:45 Acetaminophen/ Hydrocodone Bitart 1 tab Q8HPRN PRN PO 10/31/24 21:15 11/03/24 02:04 1 TAB Morphine Sulfate 2 mg Q6HPRN PRN IV 11/01/24 11:45 11/03/24 06:03 2 MG Amino Acids 0 ml @ 0 mls/hr PER PHARMACY IV 11/01/24 12:45 Fat Emulsion Intravenous 50 ml/ Sodium Acetate 20 meq/Potassium Acetate 10 meq/ Potassium Phosphate 26.4 meq/Magnesium Sulfate 4 meq/ Multivitamins 10 ml/Chromium/ Copper/Manganese/ Zinc 1 ml/Amino Acids/Dextrose/ Purified Water 1,283 ml @ 53 mls/hr [id number] IV 11/02/24 22:00 11/03/24 22:12 11/02/24 22:03 53 MLS/HR Sodium Chloride 1,000 ml @ 45 mls/hr [id number] IV 11/02/24 22:00 11/02/24 22:00 45 MLS/HR objective GEN: NAD ABD: soft. min TTP. laboratory and microbiology Laboratory Tests 11/03/24 06:04 11/01/24 06:37 Test 11/03/24 06:04 Range/Units Serum Glucose 184 H 74-106 mg/dL Assessment/Plan A: 1. resolving pSBO P: 1. advance to full liquid diet. if jerome, poss dc home if ok with hospitalist Dietary Evaluation Review Comments: 1) If pt appetite remains poor, increase TPN to meet at least 75% of estimated needs 2) Advance pt diet when medically feasible to a CCHO 60g/Cardiac diet 3) Once meals are advanced onsider Glucerna nutrition shake 1 ctn TID with meals if pt appetite remains poor 4) Continue current plan of care Expected Outcomes/Goals: 1) Pt appetite to improve 2) F/U in 2-3 days Plan discussed with: Patient BRIAN WILKINSON MD Nov 03, 2024 08:22
[2024-11-03 08:34] LABS: Basophils # (auto) 0 10 ^3/uL (0-0.2); Basophils % (auto) 0.3 % (0.0-2.0); Eosinophils # (auto) 0.2 10 ^3/uL (0-0.8); Eosinophils % (auto) 2.3 % (0.0-7.0); Hematocrit 34.4 % (36.0-46.0); Hemoglobin 11.5 g/dL (12.2-16.2); Lymphocytes # (auto) 2.5 10 ^3/uL (0.4-5.4); Lymphocytes % (auto) 38.3 % (10.0-50.0); Mean Corpuscular Hemoglobin 30.5 pg (28.0-32.0); Mean Corpuscular Hgb Conc. 33.4 g/dL (32.0-36.0); Mean Corpuscular Volume 91.3 fL (80.0-100.0); Monocytes # (auto) 0.4 10 ^3/uL (0-1.3); Monocytes % (auto) 6.3 % (0.0-12.0); Neutrophils # (auto) 3.4 10 ^3/uL (1.6-8.6); Neutrophils % (auto) 52.8 % (37.0-80.0); Platelet Count (auto) 201 10^3/uL (140-450); Red Blood Cells 3.77 10^6/uL (4.0-5.20); Red Cell Distribution Width 13.8 % (11.8-14.3); White Blood Cell 6.4 10^3/uL (4.4-10.8)
--- NOTE | 2024-11-03 16:28 | DVHPN2 ---
Subjective Seen and examined at bedside. Passing Flatus+ Changes from previous H/P or p: No Changes Eyes: No Pain, No Vision change, No Conjunctivae inflammation, No Eyelid inflammation, No Other, No Redness ENT: No Ear pain, No Ear discharge, No Nose pain, No Nose discharge, No Nose congestion, No Mouth pain, No Mouth swelling, No Throat pain, No Throat swelling, No Other Cardiovascular: No Chest Pain, No Palpitations, No Orthopnea, No Paroxysmal Noc. Dyspnea, No Edema, No Lt Headedness, No Other Respiratory: No Cough, No Dry, No Shortness of breath, No SOB with excertion, No Wheezing, No Hemoptysis, No Pleuritic Pain, No Sputum, No Other Gastrointestinal: No Nausea, No Vomiting, No Diarrhea, No Constipation, No Melena, No Hematochezia, No Other Genitourinary: No Dysuria, No Frequency, No Incontinence, No Hematuria, No Retention, No Other Musculoskeletal: No other, No neck pain, No shoulder pain, No arm pain, No back pain, No hand pain, No leg pain, No foot pain Skin: No Rash, No Lesions, No Jaundice, No Bruising, No Other Objective Vitals Vital Signs Date Time Temp Pulse Resp B/P (MAP) Pulse Ox O2 Delivery O2 Flow Rate FiO2 11/03/24 13:22 84 17 126/56 11/03/24 12:49 98.3 98 98.3 11/03/24 10:30 Room Air 0.0 11/03/24 10:30 21 Intake/Output Intake and Output 11/03/24 07:00 Intake Total 1600 ml Output Total 2150 ml Balance -550 ml Intake Oral 1500 ml IV Total 100 ml Output Urine Total 2150 ml Exam Gen: in bed NAD Cvs: N S1/S2, RRR Resp: Diminished Abd: No bowel sounds English As A [employer] 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: AAO x 4 Medications Current Medications Medications Dose Ordered Sig/Yesica Route Start Time Stop Time Status Last Admin Dose Admin Morphine Sulfate 2 mg Q30MP PRN IV 10/31/24 08:00 UNV Acetaminophen 650 mg Q6HP PRN PO 10/31/24 08:00 Zolpidem Tartrate 5 mg QHSP PRN PO 10/31/24 08:00 Docusate Sodium 100 mg DAILY PO 10/31/24 10:00 11/02/24 10:55 100 MG Nitroglycerin 0.4 mg Q5MINP PRN SL 10/31/24 08:00 UNV Ondansetron HCl 4 mg Q4HP PRN IV 10/31/24 08:00 Hold Nitroglycerin 0.4 mg Q5MINP PRN SL 10/31/24 08:00 Morphine Sulfate 2 mg Q30M PRN IV 10/31/24 08:00 Ceftriaxone Sodium 50 ml @ 100 mls/hr DAILY@09 IV 10/31/24 09:00 UNV Azithromycin 250 ml @ 125 mls/hr DAILY IV 10/31/24 10:00 UNV Albuterol 2.5 mg Q4HPRN PRN NEB 10/31/24 08:45 Cancel Ipratropium [place] 0.5 mg Q4HPRN PRN NEB 10/31/24 08:45 Cancel Metronidazole 100 ml @ 100 mls/hr Q8H IV 10/31/24 17:00 11/03/24 10:16 100 MLS/HR Cefepime HCl 50 ml @ 12.5 mls/hr Q12HR IV 10/31/24 10:00 11/03/24 11:14 12.5 MLS/HR Furosemide 40 mg DAILY PO 10/31/24 10:00 11/03/24 10:16 40 MG Losartan Potassium 50 mg DAILY PO 10/31/24 10:00 Pantoprazole Sodium 20 mg DAILY PO 10/31/24 10:00 Hold Atorvastatin Calcium 20 mg HS PO 10/31/24 22:00 11/02/24 21:56 20 MG Fluoxetine HCl 40 mg BID PO 10/31/24 10:00 11/03/24 10:16 40 MG Diagnostic Test (Pha) 1 strip Q6HR 10/31/24 12:00 11/03/24 11:14 1 STRIP Insulin Human Regular Q6HR SC 10/31/24 12:00 11/03/24 11:14 6 UNITS Dextrose 50 ml UD PRN IV 10/31/24 08:45 Acetaminophen/ Hydrocodone Bitart 1 tab Q8HPRN PRN PO 10/31/24 21:15 11/03/24 02:04 1 TAB Morphine Sulfate 2 mg Q6HPRN PRN IV 11/01/24 11:45 11/03/24 13:22 2 MG Amino Acids 0 ml @ 0 mls/hr PER PHARMACY IV 11/01/24 12:45 Fat Emulsion Intravenous 50 ml/ Sodium Acetate 20 meq/Potassium Acetate 10 meq/ Potassium Phosphate 26.4 meq/Magnesium Sulfate 4 meq/ Multivitamins 10 ml/Chromium/ Copper/Manganese/ Zinc 1 ml/Amino Acids/Dextrose/ Purified Water 1,283 ml @ 53 mls/hr [id number] IV 11/02/24 22:00 11/03/24 22:12 11/02/24 22:03 53 MLS/HR Sodium Chloride 1,000 ml @ 45 mls/hr [id number] IV 11/02/24 22:00 11/02/24 22:00 45 MLS/HR Fat Emulsion Intravenous 150 ml/Sodium Chloride 20 meq/ Potassium Acetate 20 meq/Potassium Phosphate 22 meq/ Magnesium Sulfate 8 meq/ Multivitamins 10 ml/Chromium/ Copper/Manganese/ Zinc 1 ml/Insulin Human Regular 4 units/Amino Acids/ Dextrose/Purified Water 1,533.04 ml @ 64 mls/hr [id number] IV 11/03/24 22:00 11/04/24 21:59 Cancel Laboratory Results Laboratory Tests 11/03/24 06:04 Chemistry Test 11/03/24 06:04 Albumin 3.7 g/dL (3.2-4.8) Calcium Level 9.3 mg/dL (8.7-10.4) Magnesium Level 2.0 mg/dL (1.6-2.6) Phosphorus Level 2.7 mg/dL (2.4-5.1) Total Protein 5.9 g/dL (5.7-8.2) Lipid panel Test 11/03/24 06:04 Triglycerides Level 65 mg/dL (< 150) LFT Test 11/03/24 06:04 Alanine Aminotransferase (ALT) 30 U/L (7-40) Alkaline Phosphatase 65 U/L (46-116) Aspartate Amino Transferase (AST) 38 U/L (13-40) Total Bilirubin 0.5 mg/dL (0.2-1.0) Urinalysis Test 10/31/24 02:53 Urine Color Light-yellow (Yellow) Urine Clarity Turbid (Clear) H Urine pH 5.5 (5.0-9.0) Urine Specific [place] 1.027 (1.001-1.035) Urine Protein Trace (Negative) H Urine Ketones Negative (Negative) Urine Blood Trace /uL (Negative) H Urine Nitrite Negative (Negative) Urine Bilirubin Negative (Negative) Urine Urobilinogen Normal mg/dL (Negative) Urine Leukocyte Esterase 2+ /uL (Negative) Urine RBC 3 /hpf (0 - 4) Urine WBC 158 /hpf (0 - 5) Urine WBC Clumps Present /hpf (None Seen) Urine Squamous Epithelial Cells Few /hpf (<5) Urine Bacteria None seen /hpf (None Seen) Urine Yeast (Budding) Moderate /hpf (None Seen) Urine Glucose 4+ mg/dL (Normal) H Microbiology Microbiology Date/Time Source Procedure Growth Status 10/31/24 22:00 Nose MRSA Screen - Final Complete Assessment/Plan Assessment/Plan # Small Bowel Obstruction - Flatus+ - Start clears # Left Adrenal Mass? - Outpatient MRI # Chronic Systolic CHF - Monitor for fluid overload # DM2 A1c 9.3 # Acute Cystitis - Abx # Tropenemia # Goals of care >18 mins FULL CODE Plan discussed with: Patient My Orders Orders - NUHA CORREIA MD Procedure Category Date Status Time Apply Z-Guard [facility] 11/02/24 In Process 18:04 Oob To Chair [facility] 11/03/24 In Process 08:29 Basic Metabolic Panel LAB 11/04/24 Verified 04:00 Complete Blood Count LAB 11/04/24 Verified 04:00 Date of Service: Nov 03, 2024 Billing Provider: NUHA CORREIA MD Common Visit Codes: [id number] INP/OBS CARE(HIGH) NUHA CORREIA MD Nov 03, 2024 16:28
[2024-11-03] MEDS ORDERED: PPN PER PHARMACY IV NR (22:00)
[2024-11-04] VITALS (9 sets, daily range): BP systolic 94–120; BP diastolic 56–63; PULSE 58–78; RESP 16–19; TEMP 97.4–99; O2SAT 94–100
[2024-11-04 06:46] LABS: Basophils # (auto) 0 10 ^3/uL (0-0.2); Basophils % (auto) 0.5 % (0.0-2.0); Eosinophils # (auto) 0.1 10 ^3/uL (0-0.8); Eosinophils % (auto) 1.9 % (0.0-7.0); Hematocrit 26.1 % (36.0-46.0); Hemoglobin 8.7 g/dL (12.2-16.2); Lymphocytes # (auto) 1.8 10 ^3/uL (0.4-5.4); Lymphocytes % (auto) 40.1 % (10.0-50.0); Mean Corpuscular Hemoglobin 30.8 pg (28.0-32.0); Mean Corpuscular Hgb Conc. 33.3 g/dL (32.0-36.0); Mean Corpuscular Volume 92.7 fL (80.0-100.0); Monocytes # (auto) 0.4 10 ^3/uL (0-1.3); Monocytes % (auto) 7.8 % (0.0-12.0); Neutrophils # (auto) 2.3 10 ^3/uL (1.6-8.6); Neutrophils % (auto) 49.7 % (37.0-80.0); Nucleated Red Blood Cells % 0.1 %; Platelet Count (auto) 170 10^3/uL (140-450); Red Blood Cells 2.82 10^6/uL (4.0-5.20); Red Cell Distribution Width 13.7 % (11.8-14.3); White Blood Cell 4.6 10^3/uL (4.4-10.8)
[2024-11-04 07:00] LABS: Alanine Aminotransferase 19 U/L (7-40); Anion Gap 10 (5-15); BUN/Creatinine Ratio 16.4 (10.0-20.0); Blood Urea Nitrogen 10 mg/dL (9-23); Glucose 90 mg/dL (74-106); Sodium 141 mmol/L (136-145)
[2024-11-04 07:13] LABS: Albumin 2.2 g/dL (3.2-4.8); Alkaline Phosphatase 41 U/L (46-116); Aspartate Aminotransferase 41 U/L (13-40); Bilirubin, Total 0.3 mg/dL (0.2-1.0); Carbon Dioxide 18 mmol/L (20-31); Chloride 113 mmol/L (98-107); Magnesium 1.1 mg/dL (1.6-2.6); Phosphorus 6.1 mg/dL (2.4-5.1); Total Protein 3.3 g/dL (5.7-8.2)
[2024-11-04 07:17] LABS: Calcium 5.6 mg/dL (8.7-10.4); Potassium 2.5 mmol/L (3.5-5.1)
[2024-11-04] MEDS: MAGNESIUM SULFATE 1GM/100ML 100 ML IV SCH ×2 (08:25→12:00)
[2024-11-04] MEDS: CALCIUM GLUC 1,000mg/50ml-NS 50 ML IV ONE (11:41)
[2024-11-04 12:17] LABS: Hematocrit 36.3 % (36.0-46.0); Hemoglobin 12.2 g/dL (12.2-16.2)
[2024-11-04] MEDS: POTASSIUM CHLORIDE 60 MEQ, LIDOCAINE 1% (LOCAL ANESTH.) 6 ML in SODIUM CHL 0.9% 500 ML IV ONE (12:27)
[2024-11-04] MEDS: POTASSIUM CHLORIDE 40 MEQ, LIDOCAINE 1% (LOCAL ANESTH.) 4 ML in SODIUM CHL 0.9% 250 ML IV ONE (13:41)
--- NOTE | 2024-11-04 13:45 | DVHPN2 ---
Subjective Seen and examined at bedside. Had a bowel movement. Likely lab error this AM. Will DC tomorrow if tolerating diet and ambulating Changes from previous H/P or p: No Changes Eyes: No Pain, No Vision change, No Conjunctivae inflammation, No Eyelid inflammation, No Other, No Redness ENT: No Ear pain, No Ear discharge, No Nose pain, No Nose discharge, No Nose congestion, No Mouth pain, No Mouth swelling, No Throat pain, No Throat swelling, No Other Cardiovascular: No Chest Pain, No Palpitations, No Orthopnea, No Paroxysmal Noc. Dyspnea, No Edema, No Lt Headedness, No Other Respiratory: No Cough, No Dry, No Shortness of breath, No SOB with excertion, No Wheezing, No Hemoptysis, No Pleuritic Pain, No Sputum, No Other Gastrointestinal: No Nausea, No Vomiting, No Abdominal Pain, No Diarrhea, No Constipation, No Melena, No Hematochezia, No Other Genitourinary: No Dysuria, No Frequency, No Incontinence, No Hematuria, No Retention, No Other Musculoskeletal: No other, No neck pain, No shoulder pain, No arm pain, No back pain, No hand pain, No leg pain, No foot pain Skin: No Rash, No Lesions, No Jaundice, No Bruising, No Other Objective Vitals Vital Signs Date Time Temp Pulse Resp B/P (MAP) Pulse Ox O2 Delivery O2 Flow Rate FiO2 11/04/24 12:40 99.0 74 16 119/59 (79) 99 99.0 11/04/24 08:00 Room Air* 0 21 Intake/Output Intake and Output 11/04/24 06:59 Intake Total 430 ml Output Total 2350 ml Balance -1920 ml Intake Oral 380 ml IV Total 50 ml Output Urine Total 2350 ml # Bowel Movements 1 Exam Gen: in bed NAD Cvs: N S1/S2, RRR Resp: Diminished Abd: 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 Medications Current Medications Medications Dose Ordered Sig/Yesica Route Start Time Stop Time Status Last Admin Dose Admin Morphine Sulfate 2 mg Q30MP PRN IV 10/31/24 08:00 UNV Acetaminophen 650 mg Q6HP PRN PO 10/31/24 08:00 Zolpidem Tartrate 5 mg QHSP PRN PO 10/31/24 08:00 Docusate Sodium 100 mg DAILY PO 10/31/24 10:00 11/04/24 09:43 100 MG Nitroglycerin 0.4 mg Q5MINP PRN SL 10/31/24 08:00 UNV Ondansetron HCl 4 mg Q4HP PRN IV 10/31/24 08:00 Hold Nitroglycerin 0.4 mg Q5MINP PRN SL 10/31/24 08:00 Morphine Sulfate 2 mg Q30M PRN IV 10/31/24 08:00 Ceftriaxone Sodium 50 ml @ 100 mls/hr DAILY@09 IV 10/31/24 09:00 UNV Azithromycin 250 ml @ 125 mls/hr DAILY IV 10/31/24 10:00 UNV Albuterol 2.5 mg Q4HPRN PRN NEB 10/31/24 08:45 Cancel Ipratropium [place] 0.5 mg Q4HPRN PRN NEB 10/31/24 08:45 Cancel Metronidazole 100 ml @ 100 mls/hr Q8H IV 10/31/24 17:00 11/04/24 12:17 100 MLS/HR Cefepime HCl 50 ml @ 12.5 mls/hr Q12HR IV 10/31/24 10:00 11/03/24 22:45 12.5 MLS/HR Pantoprazole Sodium 20 mg DAILY PO 10/31/24 10:00 Hold Atorvastatin Calcium 20 mg HS PO 10/31/24 22:00 11/03/24 22:45 20 MG Fluoxetine HCl 40 mg BID PO 10/31/24 10:00 11/04/24 09:43 40 MG Diagnostic Test (Pha) 1 strip Q6HR 10/31/24 12:00 11/04/24 06:21 1 STRIP Insulin Human Regular Q6HR SC 10/31/24 12:00 11/03/24 23:05 2 UNITS Dextrose 50 ml UD PRN IV 10/31/24 08:45 Acetaminophen/ Hydrocodone Bitart 1 tab Q8HPRN PRN PO 10/31/24 21:15 11/03/24 22:55 1 TAB Morphine Sulfate 2 mg Q6HPRN PRN IV 11/01/24 11:45 11/04/24 09:44 2 MG Amino Acids 0 ml @ 0 mls/hr PER PHARMACY IV 11/01/24 12:45 Fat Emulsion Intravenous 150 ml/Sodium Chloride 20 meq/ Potassium Acetate 20 meq/Potassium Phosphate 22 meq/ Magnesium Sulfate 8 meq/ Multivitamins 10 ml/Chromium/ Copper/Manganese/ Zinc 1 ml/Insulin Human Regular 4 units/Amino Acids/ Dextrose/Purified Water 1,533.04 ml @ 64 mls/hr [id number] IV 11/03/24 22:00 11/04/24 21:59 Cancel Magnesium Sulfate/ Dextrose 100 ml @ 100 mls/hr Q1HR IV 11/04/24 12:00 11/04/24 14:59 Laboratory Results Laboratory Tests 11/04/24 06:05 11/04/24 11:59 Chemistry Test 11/04/24 06:05 Albumin 2.2 g/dL (3.2-4.8) L Calcium Level 5.6 mg/dL (8.7-10.4) *L Magnesium Level 1.1 mg/dL (1.6-2.6) L Phosphorus Level 6.1 mg/dL (2.4-5.1) H Total Protein 3.3 g/dL (5.7-8.2) L LFT Test 11/04/24 06:05 Alanine Aminotransferase (ALT) 19 U/L (7-40) Alkaline Phosphatase 41 U/L (46-116) L Aspartate Amino Transferase (AST) 41 U/L (13-40) H Total Bilirubin 0.3 mg/dL (0.2-1.0) Urinalysis Test 10/31/24 02:53 Urine Color Light-yellow (Yellow) Urine Clarity Turbid (Clear) H Urine pH 5.5 (5.0-9.0) Urine Specific [place] 1.027 (1.001-1.035) Urine Protein Trace (Negative) H Urine Ketones Negative (Negative) Urine Blood Trace /uL (Negative) H Urine Nitrite Negative (Negative) Urine Bilirubin Negative (Negative) Urine Urobilinogen Normal mg/dL (Negative) Urine Leukocyte Esterase 2+ /uL (Negative) Urine RBC 3 /hpf (0 - 4) Urine WBC 158 /hpf (0 - 5) Urine WBC Clumps Present /hpf (None Seen) Urine Squamous Epithelial Cells Few /hpf (<5) Urine Bacteria None seen /hpf (None Seen) Urine Yeast (Budding) Moderate /hpf (None Seen) Urine Glucose 4+ mg/dL (Normal) H Microbiology Microbiology Date/Time Source Procedure Growth Status 10/31/24 22:00 Nose MRSA Screen - Final Complete Assessment/Plan Assessment/Plan # Small Bowel Obstruction- improving - Flatus+ - Start clears # Left Adrenal Mass? - Outpatient MRI # Chronic Systolic CHF - Monitor for fluid overload # DM2 A1c 9.3 # Acute Cystitis - Abx # Tropenemia # Goals of care >18 mins FULL CODE Plan discussed with: Patient My Orders Orders - NUHA CORREIA MD Procedure Category Date Status Time Magnesium Sulfate PHA 11/04/24 In Process 1gm/100ml 12:00 Potassium Chloride PHA 11/04/24 In Process (Potassium Chloride). 11:15 Type And Screen BBK 11/04/24 In Process 11:09 Comprehensive LAB 11/04/24 Logged Metabolic Panel 15:00 Date of Service: Nov 04, 2024 Billing Provider: NUHA CORREIA MD Common Visit Codes: [id number] INP/OBS CARE(MOD) NUHA CORREIA MD Nov 04, 2024 13:45
[2024-11-04 17:06] LABS: Albumin 4.6 g/dL (3.2-4.8); Alkaline Phosphatase 93 U/L (46-116); Anion Gap 7 (5-15); BUN/Creatinine Ratio 10.8 (10.0-20.0); Bilirubin, Total 0.5 mg/dL (0.2-1.0); Blood Urea Nitrogen 10 mg/dL (9-23); Carbon Dioxide 25 mmol/L (20-31); Chloride 102 mmol/L (98-107); Potassium 4.8 mmol/L (3.5-5.1); Total Protein 7.4 g/dL (5.7-8.2)
[2024-11-04 17:34] LABS: Alanine Aminotransferase 74 U/L (7-40); Aspartate Aminotransferase 114 U/L (13-40); Glucose 196 mg/dL (74-106); Sodium 134 mmol/L (136-145)
[2024-11-05] VITALS (7 sets, daily range): BP systolic 95–124; BP diastolic 46–61; PULSE 61–81; RESP 18–19; TEMP 97.6–97.9; O2SAT 98–100
[2024-11-05 06:39] LABS: Basophils # (auto) 0 10 ^3/uL (0-0.2); Basophils % (auto) 0.4 % (0.0-2.0); Eosinophils # (auto) 0.1 10 ^3/uL (0-0.8); Eosinophils % (auto) 1.9 % (0.0-7.0); Hematocrit 34.8 % (36.0-46.0); Lymphocytes # (auto) 2.1 10 ^3/uL (0.4-5.4); Lymphocytes % (auto) 35.1 % (10.0-50.0); Mean Corpuscular Hemoglobin 31.2 pg (28.0-32.0); Mean Corpuscular Hgb Conc. 34.4 g/dL (32.0-36.0); Mean Corpuscular Volume 90.6 fL (80.0-100.0); Monocytes # (auto) 0.4 10 ^3/uL (0-1.3); Monocytes % (auto) 7.4 % (0.0-12.0); Neutrophils # (auto) 3.3 10 ^3/uL (1.6-8.6); Neutrophils % (auto) 55.2 % (37.0-80.0); Platelet Count (auto) 216 10^3/uL (140-450); Red Blood Cells 3.84 10^6/uL (4.0-5.20)
[2024-11-05 07:12] LABS: Albumin 3.7 g/dL (3.2-4.8); Alkaline Phosphatase 73 U/L (46-116); Anion Gap 7 (5-15); BUN/Creatinine Ratio 11.8 (10.0-20.0); Bilirubin, Total 0.4 mg/dL (0.2-1.0); Blood Urea Nitrogen 9 mg/dL (9-23); Calcium 9.3 mg/dL (8.7-10.4); Carbon Dioxide 24 mmol/L (20-31); Phosphorus 2.5 mg/dL (2.4-5.1); Potassium 4.2 mmol/L (3.5-5.1); Sodium 138 mmol/L (136-145); Total Protein 5.8 g/dL (5.7-8.2)
[2024-11-05 07:14] LABS: Alanine Aminotransferase 71 U/L (7-40); Aspartate Aminotransferase 100 U/L (13-40); Chloride 107 mmol/L (98-107); Glucose 145 mg/dL (74-106)
--- NOTE | 2024-11-05 09:46 | DVHPN2 ---
Progress Note Date Seen: Nov 05, 2024 Medical Necessity Reason Pt with a Central, PICC or Fol: No Objective vital signs Vital Sign Date Time Temp Pulse Resp B/P (MAP) Pulse Ox O2 Delivery O2 Flow Rate FiO2 11/05/24 09:00 97.9 72 18 111/61 (78) 99 97.9 11/04/24 20:00 Room Air* 0 21 Total Intake and Output 11/04/24 11/04/24 11/05/24 15:00 23:00 07:00 Intake Total 100 ml 800 ml 850 ml Output Total 1250 ml 1000 ml Balance 100 ml -450 ml -150 ml medications Current Medications Medications Dose Ordered Sig/Yesica Route Start Time Stop Time Status Last Admin Dose Admin Morphine Sulfate 2 mg Q30MP PRN IV 10/31/24 08:00 UNV Acetaminophen 650 mg Q6HP PRN PO 10/31/24 08:00 Zolpidem Tartrate 5 mg QHSP PRN PO 10/31/24 08:00 Docusate Sodium 100 mg DAILY PO 10/31/24 10:00 11/04/24 09:43 100 MG Nitroglycerin 0.4 mg Q5MINP PRN SL 10/31/24 08:00 UNV Ondansetron HCl 4 mg Q4HP PRN IV 10/31/24 08:00 Hold Nitroglycerin 0.4 mg Q5MINP PRN SL 10/31/24 08:00 Morphine Sulfate 2 mg Q30M PRN IV 10/31/24 08:00 Ceftriaxone Sodium 50 ml @ 100 mls/hr DAILY@09 IV 10/31/24 09:00 UNV Azithromycin 250 ml @ 125 mls/hr DAILY IV 10/31/24 10:00 UNV Albuterol 2.5 mg Q4HPRN PRN NEB 10/31/24 08:45 Cancel Ipratropium [place] 0.5 mg Q4HPRN PRN NEB 10/31/24 08:45 Cancel Metronidazole 100 ml @ 100 mls/hr Q8H IV 10/31/24 17:00 11/05/24 08:47 100 MLS/HR Cefepime HCl 50 ml @ 12.5 mls/hr Q12HR IV 10/31/24 10:00 11/04/24 21:54 12.5 MLS/HR Pantoprazole Sodium 20 mg DAILY PO 10/31/24 10:00 Hold Atorvastatin Calcium 20 mg HS PO 10/31/24 22:00 11/04/24 21:54 20 MG Fluoxetine HCl 40 mg BID PO 10/31/24 10:00 11/04/24 21:54 40 MG Diagnostic Test (Pha) 1 strip Q6HR 10/31/24 12:00 11/05/24 07:03 1 STRIP Insulin Human Regular Q6HR SC 10/31/24 12:00 11/05/24 07:03 2 UNITS Dextrose 50 ml UD PRN IV 10/31/24 08:45 Acetaminophen/ Hydrocodone Bitart 1 tab Q8HPRN PRN PO 10/31/24 21:15 11/04/24 19:52 1 TAB Morphine Sulfate 2 mg Q6HPRN PRN IV 11/01/24 11:45 11/05/24 08:46 2 MG Amino Acids 0 ml @ 0 mls/hr PER PHARMACY IV 11/01/24 12:45 Fat Emulsion Intravenous 150 ml/Sodium Chloride 20 meq/ Potassium Acetate 20 meq/Potassium Phosphate 22 meq/ Magnesium Sulfate 8 meq/ Multivitamins 10 ml/Chromium/ Copper/Manganese/ Zinc 1 ml/Insulin Human Regular 4 units/Amino Acids/ Dextrose/Purified Water 1,533.04 ml @ 64 mls/hr [id number] IV 11/03/24 22:00 11/04/24 21:59 Cancel laboratory and microbiology Laboratory Tests 11/05/24 06:05 Test 11/05/24 06:05 Range/Units Serum Glucose 145 H 74-106 mg/dL Problem List/Assessment/Plan Problem List/Assessment/Plan 11/05/24 f/u for . patient having bowel activity, abdomen non distended, non tender, tolerating po intake, no indication for surgical intervention, please recall if needed Plan discussed with: Patient Dietary Evaluation Review Comments: 1) If pt appetite remains poor, increase TPN to meet at least 75% of estimated needs 2) Advance pt diet when medically feasible to a CCHO 60g/Cardiac diet 3) Once meals are advanced onsider Glucerna nutrition shake 1 ctn TID with meals if pt appetite remains poor 4) Continue current plan of care Expected Outcomes/Goals: 1) Pt appetite to improve 2) F/U in 2-3 days NIKO PONCE MD Nov 05, 2024 09:46
--- NOTE | 2024-11-05 12:58 | DVHDS2 ---
Discharge Summary Date of Admission Oct 31, 2024 at 07:50 Date of Discharge: Nov 05, 2024 Admitting Diagnosis Small Bowel Obstruction Labs/Diagnostic Data: Laboratory Results Test 11/05/24 12:13 11/05/24 06:05 11/03/24 06:04 11/02/24 06:28 POC Glucose 184 mg/dl (70-106) White Blood Count 6.0 10^3/uL (4.4-10.8) Red Blood Count 3.84 10^6/uL (4.0-5.20) Hemoglobin 12.0 g/dL (12.2-16.2) Hematocrit 34.8 % (36.0-46.0) Mean Corpuscular Volume 90.6 fL (80.0-100.0) Mean Corpuscular Hemoglobin 31.2 pg (28.0-32.0) Mean Corpuscular Hemoglobin Concent 34.4 g/dL (32.0-36.0) Red Cell Distribution Width 14.0 % (11.8-14.3) Platelet Count 216 10^3/uL (140-450) Mean Platelet Volume 7.8 fL (6.9-10.8) Neutrophils (%) (Auto) 55.2 % (37.0-80.0) Lymphocytes (%) (Auto) 35.1 % (10.0-50.0) Monocytes (%) (Auto) 7.4 % (0.0-12.0) Eosinophils (%) (Auto) 1.9 % (0.0-7.0) Basophils (%) (Auto) 0.4 % (0.0-2.0) Neutrophils # (Auto) 3.3 10 ^3/uL (1.6-8.6) Lymphocytes # (Auto) 2.1 10 ^3/uL (0.4-5.4) Monocytes # (Auto) 0.4 10 ^3/uL (0-1.3) Eosinophils # (Auto) 0.1 10 ^3/uL (0-0.8) Basophils # (Auto) 0 10 ^3/uL (0-0.2) Nucleated Red Blood Cells 0.0 % Sodium Level 138 mmol/L (136-145) Potassium Level 4.2 mmol/L (3.5-5.1) Chloride Level 107 mmol/L (98-107) Carbon Dioxide Level 24 mmol/L (20-31) Anion Gap 7 (5-15) Blood Urea Nitrogen 9 mg/dL (9-23) Creatinine 0.76 mg/dL (0.550-1.02) Glomerular Filtration Rate Calc 84 mL/min (>90) BUN/Creatinine Ratio 11.8 (10.0-20.0) Serum Glucose 145 mg/dL (74-106) Calcium Level 9.3 mg/dL (8.7-10.4) Phosphorus Level 2.5 mg/dL (2.4-5.1) Magnesium Level 2.0 mg/dL (1.6-2.6) Total Bilirubin 0.4 mg/dL (0.2-1.0) Aspartate Amino Transferase (AST) 100 U/L (13-40) Alanine Aminotransferase (ALT) 71 U/L (7-40) Alkaline Phosphatase 73 U/L (46-116) Total Protein 5.8 g/dL (5.7-8.2) Albumin 3.7 g/dL (3.2-4.8) Triglycerides Level 65 mg/dL (< 150) B-Type Natriuretic Peptide 403.26 pg/mL (0-100) Test 11/01/24 06:37 10/31/24 09:23 10/31/24 05:32 10/31/24 02:53 Troponin I High Sensitivity 36 ng/L (</=34) Prothrombin Time 11.2 sec (9.3-11.8) Prothrombin Time INR 1.06 (0.9-1.15) Activated Partial Thromboplast Time 27.4 SEC (24.5-34.5) Lactic Acid Level 0.9 mmol/L (0.4-2.0) Thyroid Stimulating Hormone (TSH) 0.79 uIU/mL (0.55-4.78) Urine Color Light-yellow (Yellow) Urine Clarity Turbid (Clear) Urine pH 5.5 (5.0-9.0) Urine Specific [place] 1.027 (1.001-1.035) Urine Protein Trace (Negative) Urine Ketones Negative (Negative) Urine Blood Trace /uL (Negative) Urine Nitrite Negative (Negative) Urine Bilirubin Negative (Negative) Urine Urobilinogen Normal mg/dL (Negative) Urine Leukocyte Esterase 2+ /uL (Negative) Urine RBC 3 /hpf (0 - 4) Urine WBC 158 /hpf (0 - 5) Urine WBC Clumps Present /hpf (None Seen) Urine Squamous Epithelial Cells Few /hpf (<5) Urine Bacteria None seen /hpf (None Seen) Urine Yeast (Budding) Moderate /hpf (None Seen) Urine Glucose 4+ mg/dL (Normal) Test 10/31/24 02:26 Lipase 23 U/L (12-53) Other Laboratory Tests 11/05/24 06:05 Brief Hx & Hospital Course: Patient is a 68-year-old female with a history of multiple medical problems including coronary artery disease status post stent, hypertension, diabetes, COPD, CKD, and also history of previous small-bowel obstruction in November of 2023 now admitted secondary to one-week history of diffuse abdominal pain associated with nausea and vomiting. Patient denies any flatus or bowel movements with the last two days. Patient was seen in Surgical consult. Patient was treated medically, bowel obstruction resolved. Patient is tolerating diet, no abdominal pain. Patient will be discharged back to SNF. Patient needs an outpatient MRI of the Adrenals as outpatient. Condition at Discharge: Poor Final Diagnosis/Problems List # Small Bowel Obstruction- improving # Left Adrenal Mass? - Outpatient MRI # Chronic Systolic CHF - Monitor for fluid overload # DM2 A1c 9.3 # Acute Cystitis - Abx # Tropenemia # Goals of care >18 mins FULL CODE Discharge Disposition: Home Discharge Instruct/Medications Diet: Regular Activity: Light activity Follow Up/Referral: Dr. Oskar Ayala Medications: See [facility] Discharge Statement: "Patient was advised to return to the ER or call 911 if any headaches, dizziness, shortness of breath, chest pain, abdominal pain, bleeding, fevers, or worsening of medical condition. Patient was counseled about treatment plan, medications, possible side effects, patientverbalized understanding. All questions were answered to the best of my ability. This discharge took greater then 30 minutes in planning, reviewing documentation, counseling the patient, and discussing with other team members." ASSESSMENT ASSESSMENT Assessment Date of Service: Nov 05, 2024 Billing Provider: NUHA CORREIA MD Common Visit Codes: 56438-DXL/OBS DISCH DAY >30min NUHA CORREIA MD Nov 05, 2024 12:58
== END 2024-11-05 18:40 | DRG 388 ==
LOC: ER 01:35 → EDBD 01:35 → TELE 07:50 → OVERFLOW 07:51 → ER 07:56 → TELE-CENTR 19:05
PROVIDERS: ATTEND Internal Medicine
PROC: 0D9670Z Drainage of Stomach with Drainage Device, Via Natural or Artificial Opening (ICD-10-PCS; principal; 2024-10-31)
DX: K56.600 Partial intestinal obstruction, unspecified as to cause (principal); J69.0 Pneumonitis due to inhalation of food and vomit; I13.0 Hypertensive heart and chronic kidney disease with heart failure and stage 1 through stage 4 chronic kidney disease, or unspecified chronic kidney disease; I50.22 Chronic systolic (congestive) heart failure; N30.00 Acute cystitis without hematuria; E44.1 Mild protein-calorie malnutrition; I25.10 Atherosclerotic heart disease of native coronary artery without angina pectoris; J44.9 Chronic obstructive pulmonary disease, unspecified; N18.9 Chronic kidney disease, unspecified; F32.A Depression, unspecified; F41.9 Anxiety disorder, unspecified; R81 Glycosuria; I34.0 Nonrheumatic mitral (valve) insufficiency; E11.22 Type 2 diabetes mellitus with diabetic chronic kidney disease; R62.7 Adult failure to thrive; Z88.8 Allergy status to other drugs, medicaments and biological substances; Z91.041 Radiographic dye allergy status; Z90.710 Acquired absence of both cervix and uterus; Z90.49 Acquired absence of other specified parts of digestive tract; Z95.5 Presence of coronary angioplasty implant and graft; Z87.11 Personal history of peptic ulcer disease; Z99.81 Dependence on supplemental oxygen; Z82.49 Family history of ischemic heart disease and other diseases of the circulatory system; Z83.3 Family history of diabetes mellitus; Z68.27 Body mass index [BMI] 27.0-27.9, adult; Z79.4 Long term (current) use of insulin; Z79.82 Long term (current) use of aspirin; Z79.899 Other long term (current) drug therapy
CPT/HCPCS: 36415; 71045; 71250; 74018; 74176; 80053; 81001; 82962; 83605; 83690; 83735; 83880; 84100; 84443; 84478; 84484; 85014; 85018; 85025; 85610; 85730; 86850; 86900; 86901; 87081; 93005; 96365; 99291; G0378; J1815; J2003; J3490; J7131

== ENCOUNTER 2025-03-21 23:21 | Inpatient (IN) | payer MEDICARE, MEDICAID ==
[~2025-03-21] VITALS: Ht 167.6 cm; Wt 55.9 kg
[~2025-03-21 23:21] MED LIST changes: +ATOR10TA52 PO; +EMPA1TAB PO; -EMPA1TAB3 PO; +GABA-1250 PO; +POTA-228 PO
[2025-03-22] VITALS: PULSE 74; RESP 18; O2SAT 97
--- NOTE | 2025-03-22 00:05 | ED.PDOC ---
Altered Mental Status HPI Comments 69-year-old female BIBA with sudden onset of ALOC after taking a nap today around 1500. Patient has a urinary catheter in pace and urine is dark and cloudy. PMHx of COPD, HTN, CHF, and Dementia. Patient is oriented only to self at this time. Chief Complaint: ALOC Time Seen by MD: 23:36 Primary Care Provider: SABIHA Reviewed Notes: Medications, Allergies Allergies: Coded Allergies: Codeine (Verified Allergy, Unknown, 03/21/25) Iodine (Verified Allergy, Unknown, 04/04/18) Lorazepam (Verified Allergy, Unknown, 09/05/18) Home Meds Active Scripts Atorvastatin Calcium (Lipitor) 10 Mg Tab, 1 TAB PO DAILY for 30 Days, #30 TAB Prov:VARSHA LOFTON RESIDENT 08/29/24 Clopidogrel Bisulfate (CLOPIDOGREL) 75 Mg Tab, 75 MG PO DAILY for 30 Days, #30 TAB Prov:VARSHA LOFTON RESIDENT 08/29/24 Aspirin (Aspirin Low Dose) 81 Mg Tab, 81 MG PO DAILY for 30 Days, #30 TAB Prov:VARSHA LOFTON RESIDENT 08/29/24 Insulin Regular (Human) (Novolin R) 100 Unit/Ml Inj, 0 UNITS SC ACHS for 90 Days, #90 INJ Please use insulin Reglan 3 times a day before meal. Follow below instruction. Please check glucose via glucometer 3 times a day. If blood glucose is between 150 and 200 please administer 2 units of regular insulin. If blood glucose is between 200-250 please administer 4 units of regular insulin. If blood sugar is between 250 and 300 please administer 8 units of regular insulin. If blood sugar between 300-350 please administered 10 units of regular insulin. If blood sugars between 350 and 400 please administer 12 units of regular insulin. If blood sugars greater than 400 please talk to /come to the hospital. Prov:KJ HERMOSILLO RESIDENT 05/17/24 Carvedilol (COREG) 3.125 Mg Tab, 3.125 MG PO Q12HR for 30 Days, #60 TAB Prov:NUHA CORREIA MD 08/14/22 Reported Medications Furosemide (Furosemide) 40 Mg Tab, 1 TAB PO DAILY for 90 Days, #90 09/26/24 Fluoxetine Hcl (Fluoxetine Hcl) 40 Mg Cap, 40 MG PO BID, CAP 08/26/24 Hydrocodone-Acetaminophen (Hydrocodone Bitartrate/AC 10-325 mg) 1 Tab Tab, 1 TAB PO Q6HP, TAB 08/25/24 Pantoprazole Sodium Sesquihydr (Protonix) 40 Mg Tab, 20 MG PO DAILY 12/14/23 Losartan Potassium (Losartan Potassium) 50 Mg Tab, 1 TAB PO DAILY 12/14/23 Information Source: Emergency Med Personnel Mode of Arrival: EMS Severity: Unable to Care for Self Timing: Hours Duration: Since onset Prehospital treatment: Web Marketing Coordinator Quality: Change in Behavior, Confusion Recent: Urinary Symptoms History of: Indwelling Perrin Vital Signs Vital Signs Date Time Temp Pulse Resp B/P (MAP) Pulse Ox O2 Delivery O2 Flow Rate FiO2 03/22/25 03:00 98.9 03/22/25 02:56 70 15 127/56 (79) 99 03/22/25 01:44 Nasal Cannula* 2 28 Physical Exam General: Awake, alert and oriented. No acute distress. Skin: Skin in warm, dry and intact. Appropriate color for ethnicity. HEENT: The head is normocephalic and atraumatic. Conjunctivae are clear without exudates or hemorrhage. Sclera is non-icteric. EOM are intact. No signs of nystagmus. Eyelids are normal in appearance without swelling or lesions. Oral mucosa is pink and moist Neck: The neck is supple with normal range of motion. No JVD. Cardiac: Heart rate and rhythm are normal. No murmurs, gallops, or rubs are auscultated. Respiratory: No signs of respiratory distress. Lung sounds are clear in all lobes bilaterally without rales, rhonchi, or wheezes. Abdominal: Abdomen is soft, generally tender without distention. Palpable implant in LUQ, Bowel sounds are present and normoactive in all four quadrants. Extremities: Upper and lower extremities are atraumatic in appearance without deformity or edema. Neurological: The patient is awake, alert and oriented to person, place, and time with normal speech. Speech is clear. There is no facial asymmetry. Psychiatric: Appropriate mood and affect. Good judgement and insight. Review of Systems: Unable to obtain secondary to altered mental status Past Medical History PAST MEDICAL HISTORY: Anxiety, CAD, CKF, COPD, Dementia, Depression, DM, HTN, NV, PUD, UTI'S Surgical History: Appendectomy, Cholecystectomy, Hernia Repair, Hysterectomy, Pacemaker, PTCA, Tonsillectomy INDIVIDUAL PENSION ADVISER History: No Pertinent INDIVIDUAL PENSION ADVISER History Family History Family History: Reviewed,noncontributory to illness, Unknown Social History Smoker: Unknown Alcohol: Unknown Drugs: Unknown Lives In: Home Was a procedure done? Was a procedure done?: No Differential Diagnosis (ALOC) Differential Diagnosis: Dehydration, Hypoglycemia, DKA, Encephalopathy, Sepsis, Hypoxemia, Seizure, CVA, Drug Overdose, ETOH Intoxication, Heart Failure, Other X-Ray, Labs, Meds, VS Vital Signs Date Time Temp Pulse Resp B/P (MAP) Pulse Ox O2 Delivery O2 Flow Rate FiO2 03/22/25 03:00 98.9 03/22/25 02:56 98.9 70 15 127/56 (79) 99 98.9 03/22/25 01:44 97 Nasal Cannula* 2 28 03/22/25 01:44 74 03/22/25 00:00 99.7 74 18 126/57 (80) 97 99.7 03/22/25 00:00 74 18 97 Nasal Cannula* 2 28 03/21/25 23:42 79 03/21/25 23:31 98.3 80 30 139/64 (89) 97 98.3 Lab Test 03/22/25 01:50 03/22/25 01:15 03/22/25 00:38 03/22/25 00:15 Range/Units Influenza Type A Antigen Negative Negative Influenza Type B Antigen Negative Negative SARS-CoV-2 Antigen (Rapid) Negative NEGATIVE Urine Color Light-orange Yellow Urine Clarity Turbid H Clear Urine pH 6.0 5.0-9.0 Urine Specific [place] 1.016 1.001-1.035 Urine Protein 1+ H Negative Urine Ketones Negative Negative Urine Blood 1+ H Negative /uL Urine Nitrite Negative Negative Urine Bilirubin Negative Negative Urine Urobilinogen 4 H Negative mg/dL Urine Leukocyte Esterase 3+ Negative /uL Urine RBC 25 0 - 4 /hpf Urine WBC Clumps Present None Seen /hpf Urine Microscopic WBC 596 H 0-5 /HPF Urine Squamous Epithelial Cells Few <5 /hpf Urine Bacteria Mod H None Seen /hpf Urine Mucus Few None Seen Urine Glucose 3+ H Normal mg/dL POC Glucose 314 H 70-106 mg/dl White Blood Count 10.9 H 4.4-10.8 10^3/uL Red Blood Count 3.87 L 4.0-5.20 10^6/uL Hemoglobin 9.9 L 12.2-16.2 g/dL Hematocrit 29.9 L 36.0-46.0 % Mean Corpuscular Volume 77.3 L 80.0-100.0 fL Mean Corpuscular Hemoglobin 25.5 L 28.0-32.0 pg Mean Corpuscular Hemoglobin Concent 32.9 32.0-36.0 g/dL Red Cell Distribution Width 17.7 H 11.8-14.3 % Platelet Count 386 140-450 10^3/uL Mean Platelet Volume 7.4 6.9-10.8 fL Neutrophils (%) (Auto) 86.0 H 37.0-80.0 % Lymphocytes (%) (Auto) 7.5 L 10.0-50.0 % Monocytes (%) (Auto) 5.3 0.0-12.0 % Eosinophils (%) (Auto) 0.6 0.0-7.0 % Basophils (%) (Auto) 0.6 0.0-2.0 % Neutrophils # (Auto) 9.4 H 1.6-8.6 10 ^3/uL Lymphocytes # (Auto) 0.8 0.4-5.4 10 ^3/uL Monocytes # (Auto) 0.6 0-1.3 10 ^3/uL Eosinophils # (Auto) 0.1 0-0.8 10 ^3/uL Basophils # (Auto) 0.1 0-0.2 10 ^3/uL Nucleated Red Blood Cells 0.0 % Sodium Level 133 L 136-145 mmol/L Potassium Level 3.8 3.5-5.1 mmol/L Chloride Level 102 98-107 mmol/L Carbon Dioxide Level 23 20-31 mmol/L Anion Gap 8 5-15 Blood Urea Nitrogen 12 9-23 mg/dL Creatinine 1.08 H 0.550-1.02 mg/dL Glomerular Filtration Rate Calc 55 >90 mL/min BUN/Creatinine Ratio 11.1 10.0-20.0 Serum Glucose 298 H 74-106 mg/dL Hemoglobin A1c 11.5 H <5.7 % A1C Lactic Acid Level 1.9 0.4-2.0 mmol/L Calcium Level 8.5 L 8.7-10.4 mg/dL Total Bilirubin 0.6 0.2-1.0 mg/dL Aspartate Amino Transferase (AST) 54 H 13-40 U/L Alanine Aminotransferase (ALT) 36 7-40 U/L Alkaline Phosphatase 137 H 46-116 U/L Troponin I High Sensitivity 16 </=34 ng/L B-Type Natriuretic Peptide 2378.35 0-100 pg/mL Total Protein 6.8 5.7-8.2 g/dL Albumin 4.1 3.2-4.8 g/dL Thyroid Stimulating Hormone (TSH) 3.30 0.55-4.78 uIU/mL Current Medications Medications (Trade) Dose Ordered Sig/Yesica Route Start Time Stop Time Status Last Admin Sodium Chloride 1,000 ml @ 1,000 mls/hr Q1H ONCE IV 03/22/25 00:00 03/22/25 00:59 DC 03/22/25 00:08 Vancomycin HCl 250 ml @ 250 mls/hr ONCE ONCE IV 03/22/25 02:45 03/22/25 03:44 DC 03/22/25 03:30 Ceftriaxone Sodium 50 ml @ 100 mls/hr ONCE ONCE IV 03/22/25 02:45 03/22/25 03:14 DC 03/22/25 03:02 Acetaminophen (Tylenol Tablet) 650 mg ONCE ONCE PO 03/22/25 03:00 03/22/25 03:02 DC 03/22/25 03:00 PATIENT: FRANKLIN REYES ACCT: [id number] UNIT: [id number] : 1955 LOC: ER ROOM / BED: / AGE / SEX: 69 / F ADM STATUS: REG ER SERVICE [id number] ORDERING PHYSICIAN: HA OLIVO MD PROCEDURE(s): ABPL - CT AB PEL WO CON-NO ORAL OR IV REASON: Altered mental status, abdominal ORDER NUMBER(s): [id number], ACCESSION NUMBER(s): [id number] CLINICAL HISTORY: Altered mental status, abdominal TECHNIQUE: CT of the abdomen and pelvis was performed without intravenous contrast. This exam was performed according to our departmental dose optimization program. Up-to-date CT equipment and radiation dose reduction techniques are utilized as appropriate. CTDI: 22.28 DLP: 1203.2 WID: COMPARISON: CT CT AB PEL WO CON-NO ORAL OR IV on DOS: 10/31/24, FINDINGS: Lower Thorax: Mild cardiomegaly. There is interlobular septal thickening in the lung bases. There are small bilateral pleural effusions. There are patchy and confluent ground-glass opacities in the lung bases. There are pacer leads terminating in the right atrial appendage and right ventricle. Partially imaged coronary artery calcifications up to marked in the left anterior descending coronary artery. Small pericardial effusion. Liver and Biliary system: Mild hepatomegaly measuring 21 cm craniocaudal. No definite hepatic lesion. Prior cholecystectomy. There is no biliary ductal dilatation. Spleen: Unremarkable. Adrenal Glands and Kidneys: Mild thickening of the left adrenal gland. Normal right adrenal gland. There is no hydronephrosis or nephrolithiasis. Mild bilateral renal cortical scarring. Pancreas and Retroperitoneum: Atrophic pancreas. No retroperitoneal lymphadenopathy. Aorta and Major Vessels: Aortoiliac vessels are normal in caliber with [id number] calcified atherosclerotic plaque. Bowel, Mesentery and Peritoneal space: Normal caliber small and large bowel. Moderate retained stool in the colon. Prior appendectomy. Mild ascites. Mild mesenteric venous congestion. There is no free air or fluid collection. Pelvis: Bladder wall thickening. A Perrin catheter is seen in the urinary bladder which is decompressed. Prior hysterectomy. There is no pelvic lymphadenopathy. Abdominal wall and Osseous Structures: Body wall edema. Bony demineralization. Moderate degenerative narrowing of the bilateral hips. Posterior spinal fixation hardware from L3 -S1. Anterior screws in the L4 and S1 vertebral bodies. Interbody fusion at L3-L4 , L4-L5, and L5-S1. Multilevel lower thoracic and lumbar spondylosis. IMPRESSION: 1. CHF/volume overload, with mild cardiomegaly, interstitial pulmonary edema, small bilateral pleural effusions, mesenteric venous congestion and mild ascites, and body wall edema. 2. Patchy and confluent ground-glass opacities in the lung bases which could be alveolar pulmonary edema though multifocal pneumonia is also consideration. 3. Circumferential bladder wall thickening which may be in part due to underdistention about a Perrin catheter. Correlate with urinalysis if there is clinical concern for cystitis. ATED BY: SERENA NOBLES MD DICTATED DATE/TIME: 03/22/25127 SIGNED BY: SERENA NOBLES MD SIGNED DATE/TIME: 03/22/25127 PATIENT: FRANKLIN REYES ACCT: [id number] UNIT: [id number] : 1955 LOC: ER ROOM / BED: / AGE / SEX: 69 / F ADM STATUS: REG ER SERVICE [id number] ORDERING PHYSICIAN: HA OLIVO MD PROCEDURE(s): CXR1 - CHEST XRAY 1 VIEW REASON: Suspected Sepsis ORDER NUMBER(s): [id number], ACCESSION NUMBER(s): [id number] CHEST RADIOGRAPH Indication: Suspected Sepsis Technique: Single frontal view of the chest was obtained COMPARISON: XY CHEST XRAY 1 VIEW on DOS: 10/31/24, XY CHEST PORTABLE on DOS: 10/24/24, XY CHEST PORTABLE on DOS: 10/23/24, XY CHEST PORTABLE on DOS: 09/25/24, XY CHEST PORTABLE on DOS: 09/16/24 FINDINGS: Lines and Tubes: None Lungs: Progressive diffuse increased prominence of the pulmonary vasculature suggestive of sequelae of pulmonary vascular congestion. Mild patchy densities within the right lung base consistent with developing infiltrate versus consolidation. Left basilar atelectasis. Left pleural effusion not excluded. No pneumothorax. Cardiomediastinal contours: Unremarkable. Left anterior chest wall cardiac pacing device redemonstrated. Bones: Unremarkable IMPRESSION: 1. Diffuse increased prominence of the pulmonary vasculature with patchy right lung base airspace disease suggestive of developing infiltrate and/or consolidation. Left basilar atelectasis. 2. Small left pleural effusion not excluded. ATED BY: VLAD SORIANO MD DICTATED DATE/TIME: 03/22/25114 SIGNED BY: VLAD SORIANO MD SIGNED DATE/TIME: 03/22/25114 CC: Time of 1ST Reevaluation: 00:06 Reevaluation 1ST: Unchanged Patient Education/Counseling: Need For Follow Up Family Education/Counseling: No Family Present Departure 1 Departure Time of Disposition: 02:49 Impression: Primary Impression: Altered mental status Additional Impression: Urinary tract infection Disposition: ADMITTED INPATIENT Condition: Serious Comments Patient admitted to hospitalist service for further treatment, evaluation and monitoring. Critical Care Note Critical Care Time?: No Stability Stability form required: No Heart Score Heart Score: Heart Score Response (Comments) Value History N/A 0 EKG N/A 0 Age N/A 0 Risk Factors N/A 0 Troponin N/A 0 Total 0 I personally scribed for HA OLIVO MD ([email or web address]) on 03/22/25 at 00:05. Electronically submitted by Irving Pena ([email or web address]). HA OLIVO MD March 22, 2025 00:05
[2025-03-22] MEDS: SODIUM CHLORIDE 0.9% 1,000 ML IV ONE (00:08)
[2025-03-22 00:37] LABS: Basophils # (auto) 0.1 10 ^3/uL (0-0.2); Basophils % (auto) 0.6 % (0.0-2.0); Eosinophils # (auto) 0.1 10 ^3/uL (0-0.8); Eosinophils % (auto) 0.6 % (0.0-7.0); Hematocrit 29.9 % (36.0-46.0); Hemoglobin 9.9 g/dL (12.2-16.2); Lymphocytes # (auto) 0.8 10 ^3/uL (0.4-5.4); Lymphocytes % (auto) 7.5 % (10.0-50.0); Mean Corpuscular Hemoglobin 25.5 pg (28.0-32.0); Mean Corpuscular Hgb Conc. 32.9 g/dL (32.0-36.0); Mean Corpuscular Volume 77.3 fL (80.0-100.0); Monocytes # (auto) 0.6 10 ^3/uL (0-1.3); Monocytes % (auto) 5.3 % (0.0-12.0); Neutrophils # (auto) 9.4 10 ^3/uL (1.6-8.6); Platelet Count (auto) 386 10^3/uL (140-450); Red Blood Cells 3.87 10^6/uL (4.0-5.20); Red Cell Distribution Width 17.7 % (11.8-14.3); White Blood Cell 10.9 10^3/uL (4.4-10.8)
[2025-03-22 00:46] LABS: Alanine Aminotransferase 36 U/L (7-40); Albumin 4.1 g/dL (3.2-4.8); Anion Gap 8 (5-15); BUN/Creatinine Ratio 11.1 (10.0-20.0); Blood Urea Nitrogen 12 mg/dL (9-23); Carbon Dioxide 23 mmol/L (20-31); Chloride 102 mmol/L (98-107); Potassium 3.8 mmol/L (3.5-5.1); Total Protein 6.8 g/dL (5.7-8.2)
[2025-03-22 00:47] LABS: Bilirubin, Total 0.6 mg/dL (0.2-1.0)
[2025-03-22 00:59] LABS: Sodium 133 mmol/L (136-145)
[2025-03-22 01:00] LABS: Alkaline Phosphatase 137 U/L (46-116); Aspartate Aminotransferase 54 U/L (13-40); Calcium 8.5 mg/dL (8.7-10.4); Glucose 298 mg/dL (74-106)
--- NOTE | 2025-03-22 01:17 | DVH ---
CHEST RADIOGRAPH Indication: Suspected Sepsis Technique: Single frontal view of the chest was obtained COMPARISON: XY CHEST XRAY 1 VIEW on DOS: 10/31/24, XY CHEST PORTABLE on DOS: 10/24/24, XY CHEST PORTAB LE on DOS: 10/23/24, XY CHEST PORTABLE on DOS: 09/25/24, XY CHEST PORTABLE on DOS: 09/16/24 FINDINGS: Lines and Tubes: None Lungs: Progressive diffuse increased prominence of the pulmonary vasculature suggestive of sequelae o f pulmonary vascular congestion. Mild patchy densities within the right lung base consistent with dev eloping infiltrate versus consolidation. Left basilar atelectasis. Left pleural effusion not exclude d. No pneumothorax. Cardiomediastinal contours: Unremarkable. Left anterior chest wall cardiac pacing device redemonstra jorgito. Bones: Unremarkable IMPRESSION: 1. Diffuse increased prominence of the pulmonary vasculature with patchy right lung base airspace dis ease suggestive of developing infiltrate and/or consolidation. Left basilar atelectasis. 2. Small left pleural effusion not excluded.
--- NOTE | 2025-03-22 01:30 | DVH ---
CLINICAL HISTORY: Altered mental status, abdominal TECHNIQUE: CT of the abdomen and pelvis was performed without intravenous contrast. This exam was per formed according to our departmental dose optimization program. Up-to-date CT equipment and radiation dose reduction techniques are utilized as appropriate. CTDI: 22.28 DLP: 1203.2 WID: COMPARISON: CT CT AB PEL WO CON-NO ORAL OR IV on DOS: 10/31/24, FINDINGS: Lower Thorax: Mild cardiomegaly. There is interlobular septal thickening in the lung bases. There are small bilateral pleural effusions. There are patchy and confluent ground-glass opacities in the lung bases. There are pacer leads terminating in the right atrial appendage and right ventricle. Partiall y imaged coronary artery calcifications up to marked in the left anterior descending coronary artery. Small pericardial effusion. Liver and Biliary system: Mild hepatomegaly measuring 21 cm craniocaudal. No definite hepatic lesion. Prior cholecystectomy. There is no biliary ductal dilatation. Spleen: Unremarkable. Adrenal Glands and Kidneys: Mild thickening of the left adrenal gland. Normal right adrenal gland. Th ere is no hydronephrosis or nephrolithiasis. Mild bilateral renal cortical scarring. Pancreas and Retroperitoneum: Atrophic pancreas. No retroperitoneal lymphadenopathy. Aorta and Major Vessels: Aortoiliac vessels are normal in caliber with [id number] calcified ath erosclerotic plaque. Bowel, Mesentery and Peritoneal space: Normal caliber small and large bowel. Moderate retained stool in the colon. Prior appendectomy. Mild ascites. Mild mesenteric venous congestion. There is no free air or fluid collection. Pelvis: Bladder wall thickening. A Perrin catheter is seen in the urinary bladder which is decompresse d. Prior hysterectomy. There is no pelvic lymphadenopathy. Abdominal wall and Osseous Structures: Body wall edema. Bony demineralization. Moderate degenerative narrowing of the bilateral hips. Posterior spinal fixation hardware from L3 -S1. Anterior screws in the L4 and S1 vertebral bodies. Interbody fusion at L3-L4 , L4-L5, and L5-S1. Multilevel lower thor acic and lumbar spondylosis. IMPRESSION: 1. CHF/volume overload, with mild cardiomegaly, interstitial pulmonary edema, small bilateral pleural effusions, mesenteric venous congestion and mild ascites, and body wall edema. 2. Patchy and confluent ground-glass opacities in the lung bases which could be alveolar pulmonary ed alanis though multifocal pneumonia is also consideration. 3. Circumferential bladder wall thickening which may be in part due to underdistention about a Perrin catheter. Correlate with urinalysis if there is clinical concern for cystitis.
[2025-03-22 02:36] LABS: Urine Bacteria MOD /hpf (None Seen); Urine Blood 1+ /uL (Negative); Urine Clarity Turbid (Clear); Urine Color Light-Orange (Yellow); Urine Mucus FEW (None Seen); Urine Protein, UAD 1+ (Negative); Urine Specific Gravity 1.016 (1.001-1.035); Urine Squamous Epithelial Cell FEW /hpf (<5); Urine Urobilinogen 4 mg/dL (Negative); Urine WBC 596 /HPF (0-5); Urine WBC Clumps PRESENT /hpf (None Seen)
[2025-03-22] MEDS: ACETAMINOPHEN 325 MG TAB PO ONE (03:00)
[2025-03-22] MEDS: cefTRIAXone 1GM/50ML D5W 50 ML IV ONE (03:02)
[2025-03-22 03:28] LABS: Rapid Influenza A Negative (Negative); Rapid Influenza B Negative (Negative)
[2025-03-22] MEDS: VANCOMYCIN 1GM/200ML PM 250 ML IV ONE (03:30)
[2025-03-22] MEDS ORDERED: cefTRIAXone 1GM/50ML D5W 50 ML IV ONE (03:45)
[2025-03-22] MEDS ORDERED: DEXTROSE (50%) 50ML SYRG IV PRN ×3 (03:45→19:45)
[2025-03-22] MEDS ORDERED: VANCOMYCIN PER PHARMACY 0 MG IV SCH (03:45)
[2025-03-22] MEDS ORDERED: ACETAMINOPHEN 325 MG TAB PO PRN (03:45)
[2025-03-22 04:37] LABS: COVID19 ANTIGEN SOFIA FIA NEGATIVE (NEGATIVE)
--- NOTE | 2025-03-22 05:12 | DVHHP2 ---
History of Present Illness Reason for Visit: acute metabolic encephalopathy History of Present Illness 69-year-old female with a past medical history significant for ischemic cardiomyopathy with reduced ejection fraction (EF 25%), multiple myocardial infarctions, coronary artery disease status post multiple stent placements (in cluding RCA in 2022 and LAD in 2021), ICD placement, and small bowel obstruction with history of abdominal surgeries and a known ventral hernia, was brought to the ED by EMS for evaluation of altered mental status. According to her daughter (not at bedside), the patient was noted to be confused and not acting like herself after waking from a nap around 3 PM today. In the ED, she was found to have temperature 99.4 overnight, with leukocytosis and signs of both pulmonary and urinary tract infection. Images revealed cardiomegaly, pulmonary edema, and ground glass opacities suggestive of pneumonia. CT abdomen/pelvis demonstrated bladder wall thickening, consistent with a likely urinary source. Given her cardiac history, PE and radiographic findings, she is also suspected to be in acute heart failure exacerbation. PAST MEDICAL HISTORY: Heart failure with reduced EF (25%) Coronary artery disease Status post stents (RCA 2022, LAD 2021) ICD placement Recurrent small bowel obstruction Ventral hernia Anxiety Dementia COPD Surgical History: Appendectomy, Cholecystectomy, Hernia Repair, Hysterectomy, Pacemaker, PTCA, Tonsillectomy, Spine surgeries Social History Smoker: Unknown Alcohol: Unknown Drugs: Unknown Lives In: Home Review of Systems Review of Systems Unable to obtain due to altered mental status Allergies: Coded Allergies: Codeine (Verified Allergy, Unknown, 03/21/25) Iodine (Verified Allergy, Unknown, 04/04/18) Lorazepam (Verified Allergy, Unknown, 09/05/18) Medications Current Medications Medications Dose Ordered Sig/Yesica Route Start Time Stop Time Status Last Admin Dose Admin Acetaminophen 650 mg Q6HP PRN PO 03/22/25 03:45 Enoxaparin Sodium 40 mg DAILY SC 03/22/25 10:00 Vancomycin HCl 0 ml @ 0 mls/hr UD IV 03/22/25 03:45 UNV Diagnostic Test (Pha) 1 strip ACHS 03/22/25 07:00 Insulin Human Regular ACHS SC 03/22/25 07:00 Dextrose 50 ml UD PRN IV 03/22/25 03:45 Aspirin 81 mg DAILY PO 03/22/25 10:00 Clopidogrel Bisulfate 75 mg DAILY PO 03/22/25 10:00 Atorvastatin Calcium 10 mg HS PO 03/22/25 22:00 Furosemide 40 mg DAILY IV 03/22/25 10:00 Insulin Glargine 15 units HS SC 03/22/25 22:00 Azithromycin 250 ml @ 125 mls/hr DAILY IV 03/22/25 10:00 UNV Pantoprazole Sodium 40 mg DAILY IV 03/22/25 10:00 Exam Vital Signs Vital Signs Date Time Temp Pulse Resp B/P (MAP) Pulse Ox O2 Delivery O2 Flow Rate FiO2 03/22/25 04:00 98.7 03/22/25 02:56 70 15 127/56 (79) 99 03/22/25 01:44 Nasal Cannula* 2 28 Exam PHYSICAL EXAMINATION: General: Altered, A0X2: person and place Vitals: t 99.4, requiring supplemental oxygen 2 lts HEENT: No meningeal signs Cardiovascular: S1 S2, murmur aortic foci Pulmonary: Bibasilar crackles Abdomen: Soft, non-distended, known hernia Neuro: No focal deficits, encephalopathic Skin: sacral wound 5 cm Labs/Xrays Labs Test 03/22/25 01:50 03/22/25 01:15 03/22/25 00:38 03/22/25 00:15 Range/Units Influenza Type A Antigen Negative Negative Influenza Type B Antigen Negative Negative SARS-CoV-2 Antigen (Rapid) Negative NEGATIVE Urine Color Light-orange Yellow Urine Clarity Turbid H Clear Urine pH 6.0 5.0-9.0 Urine Specific [place] 1.016 1.001-1.035 Urine Protein 1+ H Negative Urine Ketones Negative Negative Urine Blood 1+ H Negative /uL Urine Nitrite Negative Negative Urine Bilirubin Negative Negative Urine Urobilinogen 4 H Negative mg/dL Urine Leukocyte Esterase 3+ Negative /uL Urine RBC 25 0 - 4 /hpf Urine WBC Clumps Present None Seen /hpf Urine Microscopic WBC 596 H 0-5 /HPF Urine Squamous Epithelial Cells Few <5 /hpf Urine Bacteria Mod H None Seen /hpf Urine Mucus Few None Seen Urine Glucose 3+ H Normal mg/dL POC Glucose 314 H 70-106 mg/dl White Blood Count 10.9 H 4.4-10.8 10^3/uL Red Blood Count 3.87 L 4.0-5.20 10^6/uL Hemoglobin 9.9 L 12.2-16.2 g/dL Hematocrit 29.9 L 36.0-46.0 % Mean Corpuscular Volume 77.3 L 80.0-100.0 fL Mean Corpuscular Hemoglobin 25.5 L 28.0-32.0 pg Mean Corpuscular Hemoglobin Concent 32.9 32.0-36.0 g/dL Red Cell Distribution Width 17.7 H 11.8-14.3 % Platelet Count 386 140-450 10^3/uL Mean Platelet Volume 7.4 6.9-10.8 fL Neutrophils (%) (Auto) 86.0 H 37.0-80.0 % Lymphocytes (%) (Auto) 7.5 L 10.0-50.0 % Monocytes (%) (Auto) 5.3 0.0-12.0 % Eosinophils (%) (Auto) 0.6 0.0-7.0 % Basophils (%) (Auto) 0.6 0.0-2.0 % Neutrophils # (Auto) 9.4 H 1.6-8.6 10 ^3/uL Lymphocytes # (Auto) 0.8 0.4-5.4 10 ^3/uL Monocytes # (Auto) 0.6 0-1.3 10 ^3/uL Eosinophils # (Auto) 0.1 0-0.8 10 ^3/uL Basophils # (Auto) 0.1 0-0.2 10 ^3/uL Nucleated Red Blood Cells 0.0 % Sodium Level 133 L 136-145 mmol/L Potassium Level 3.8 3.5-5.1 mmol/L Chloride Level 102 98-107 mmol/L Carbon Dioxide Level 23 20-31 mmol/L Anion Gap 8 5-15 Blood Urea Nitrogen 12 9-23 mg/dL Creatinine 1.08 H 0.550-1.02 mg/dL Glomerular Filtration Rate Calc 55 >90 mL/min BUN/Creatinine Ratio 11.1 10.0-20.0 Serum Glucose 298 H 74-106 mg/dL Lactic Acid Level 1.9 0.4-2.0 mmol/L Calcium Level 8.5 L 8.7-10.4 mg/dL Total Bilirubin 0.6 0.2-1.0 mg/dL Aspartate Amino Transferase (AST) 54 H 13-40 U/L Alanine Aminotransferase (ALT) 36 7-40 U/L Alkaline Phosphatase 137 H 46-116 U/L Troponin I High Sensitivity 16 </=34 ng/L B-Type Natriuretic Peptide 2378.35 0-100 pg/mL Total Protein 6.8 5.7-8.2 g/dL Albumin 4.1 3.2-4.8 g/dL Assessment/Plan Assessment/Plan #Acute metabolic encephalopathy due to sepsis #Sepsis due to PNA+ UTI+ sacral wound #Pneumonia gram+/gram- #Complicated UTI: bladder thickening #Chronic wahl indwelling #Sacral wound stage 2-3 #Acute on chronic HFrEF #s/p stent placements #CAD #Dementia #Possible COPD exacerbation #s/p ICD #Ventral hernia #DM type 2 #Hypertension #Anxiety #Chronic lumbar pain s/p spine surgery Admit Med/surg Diabetic diet after swallow evaluation O2 2 LT Ceftriaxone + Vancomycin + Azithromycin Panculture Head Ct scan ECHO + EKG ICD interrogation Clopidogrel + Aspirin Hold on GDMT due to sepsis Furosemide IV low dose ISS + lantus 15 SC Protonix IV Enoxaparin 40 mg SC PT evaluation Tylenol + Ketorolac for pain Case discussed with Dr Armendariz Full code for now but further discussion should be done with the family Plan discussed with: Patient, Other (rn) My Orders Orders - THANIA YOUSIF RESIDENT Procedure Category Date Status Time Admit ADMIT 03/22/25 Transmitted 03:35 Code Status CODE 03/22/25 Transmitted 03:35 Vital Signs DIANA 03/22/25 In Process 03:35 Review Orders With [facility] 03/22/25 In Process Adm. 03:35 Regular Diet DIET 03/22/25 Transmitted Breakfast Acetaminophen Tablet PHA 03/22/25 In Process (Tylenol Tablet) 03:45 Notify Of Changes DIANA 03/22/25 In Process From Base 03:35 Advance Directive DIANA 03/22/25 In Process 03:35 Echo 2d Mode Cardiac US 03/22/25 Logged DOP 03:35 Routine Bacterial RAGHAV 03/22/25 Logged Culture 03:35 Patient Condition ORDERS 03/22/25 Transmitted 03:35 Allergies DIANA 03/22/25 In Process 03:35 Enoxaparin Sodium PHA 03/22/25 In Process (Lovenox) 10:00 Ceftriaxone 1gm/50ml PHA 03/22/25 Pending D5w (Rocephin) 03:45 Vancomycin Per PHA 03/22/25 Pending Pharmacy 03:45 Glucose Blood PHA 03/22/25 In Process (Accu-Chek Comfort 07:00 Insulin R (Human) PHA 03/22/25 In Process (Insulin R) 07:00 Dextrose 50% Syringe PHA 03/22/25 In Process 03:45 Aspirin Tablet PHA 03/22/25 In Process 10:00 Clopidogrel Bisulfate PHA 03/22/25 In Process (Plavix) 10:00 Atorvastatin (Lipitor) PHA 03/22/25 In Process 22:00 Furosemide Injection PHA 03/22/25 In Process (Lasix Injection) 10:00 Insulin Lantus PHA 03/22/25 In Process (Glargine) (Lantus) 22:00 * Wound Consult CONS 03/22/25 Transmitted Routine Bacterial RAGHAV 03/22/25 Logged Culture 03:41 Respiratory Culture RAGHAV 03/22/25 Logged W/ Gs 03:[address] 03/22/25 Logged 03:41 Electrocardigram EKG 03/22/25 Logged 03:43 Azithromycin 500mg/ PHA 03/22/25 Pending 250ml (Zithromax 50 10:00 Assess Pacemaker DIANA 03/22/25 In Process Function 03:46 Communication Order ORDERS 03/22/25 Transmitted 03:46 Complete Blood Count LAB 03/22/25 Logged 03:48 Comprehensive LAB 03/22/25 Logged Metabolic Panel 03:48 Pantoprazole PHA 03/22/25 In Process (Protonix) 10:00 Hemoglobin A1c LAB 03/22/25 Logged 04:21 Date of Service: March 22, 2025 Billing Provider: NUHA ARMENDARIZ MD Common Visit Codes: [id number] INP/OBS CARE (HIGH) THANIA YOUSIF RESIDENT March 22, 2025 05:12
[2025-03-22] MEDS ORDERED: KETOROLAC TROMETH 30 MG/ML 1ML VIAL IV PRN (05:15)
--- NOTE | 2025-03-22 06:12 | DVH ---
EXAM: CT Head Without Intravenous Contrast CLINICAL INDICATION: aloc TECHNIQUE: Axial computed tomography images of the head/brain without intravenous contrast. This CT exam was performed using one or more of the following dose reduction techniques: automated exposure control, adjustment of the mA and/or kV according to patient size, and/or use of iterative reconstru ction technique. CONTRAST: RADIATION DOSE: CTDIvol = 34.08 mGy, DLP = 742.07 mGy-cm COMPARISON: CT HEAD WITHOUT CONTRAST on DOS: 02/12/24 FINDINGS: BRAIN AND EXTRA-AXIAL SPACES: Apparent hypodense lesion in the right basal ganglia could be artifac t. This could be further evaluated with MRI. Areas of decreased attenuation in the deep cerebral whi te matter are consistent with small vessel ischemic/degenerative changes. No acute intracranial hemo rrhage. BONES/JOINTS: Unremarkable. No acute fracture. SOFT TISSUES: Unremarkable. SINUSES: Unremarkable as visualized. No acute sinusitis. MASTOID AIR CELLS: Unremarkable as visualized. No mastoid effusion. OTHER FINDINGS: . IMPRESSION: 1. No acute intracranial hemorrhage. 2. Apparent hypodense lesion in the right basal ganglia could be artifact. This could be further enrrique luated with MRI. 3. Small vessel ischemic/degenerative changes.
[2025-03-22] MEDS: ACCU-CHEK COMFORT CURVE STRIP VI SCH ×3 (06:34→23:50)
[2025-03-22] MEDS: InsuLIN REG 1unit/0.01ml Soln (100units/ml) SC SCH ×3 (06:36→23:51)
[2025-03-22 06:43] LABS: Basophils # (auto) 0 10 ^3/uL (0-0.2); Eosinophils # (auto) 0 10 ^3/uL (0-0.8); Monocytes # (auto) 0.6 10 ^3/uL (0-1.3); Neutrophils # (auto) 6.9 10 ^3/uL (1.6-8.6)
[2025-03-22 06:44] LABS: Basophils % (auto) 0.5 % (0.0-2.0); Eosinophils % (auto) 0.4 % (0.0-7.0); Hematocrit 29.7 % (36.0-46.0); Hemoglobin 9.6 g/dL (12.2-16.2); Lymphocytes # (auto) 1.3 10 ^3/uL (0.4-5.4); Mean Corpuscular Hemoglobin 25.2 pg (28.0-32.0); Mean Corpuscular Hgb Conc. 32.4 g/dL (32.0-36.0); Mean Corpuscular Volume 77.9 fL (80.0-100.0); Monocytes % (auto) 6.9 % (0.0-12.0); Neutrophils % (auto) 77.2 % (37.0-80.0); Platelet Count (auto) 315 10^3/uL (140-450); Red Blood Cells 3.82 10^6/uL (4.0-5.20); Red Cell Distribution Width 17.4 % (11.8-14.3)
[2025-03-22 06:57] LABS: Alanine Aminotransferase 39 U/L (7-40); Albumin 3.8 g/dL (3.2-4.8); Anion Gap 9 (5-15); BUN/Creatinine Ratio 11.9 (10.0-20.0); Blood Urea Nitrogen 12 mg/dL (9-23); Carbon Dioxide 24 mmol/L (20-31); Chloride 102 mmol/L (98-107); Potassium 3.7 mmol/L (3.5-5.1); Total Protein 6.4 g/dL (5.7-8.2)
[2025-03-22 06:58] LABS: Alkaline Phosphatase 129 U/L (46-116); Aspartate Aminotransferase 70 U/L (13-40); Calcium 8.6 mg/dL (8.7-10.4); Glucose 280 mg/dL (74-106); Sodium 135 mmol/L (136-145)
[2025-03-22 07:20] LABS: Bilirubin, Total 0.6 mg/dL (0.2-1.0)
[2025-03-22 07:45] VITALS: PULSE 64; RESP 14; O2SAT 99
[2025-03-22] MEDS: INSULIN LANTUS (GLARGINE) 1 /0.01ml (100units/ml) SC ONE (09:23)
[2025-03-22] MEDS ORDERED: AZITHROMYCIN 500MG/ 250ML 250 ML IV SCH (10:00)
[2025-03-22] MEDS ORDERED: FUROSEMIDE 40 MG/4 ML VIAL IV SCH (10:00)
[2025-03-22] MEDS: AZITHROMYCIN 250 MG TAB PO SCH (10:25)
[2025-03-22] MEDS: PANTOPRAZOLE 40 MG/10 ML VIAL INJ IV SCH (10:25)
[2025-03-22] MEDS: ASPirin 81 mg TAB PO SCH (10:25)
[2025-03-22] MEDS: ENOXAPARIN SOD 40 MG/0.4 ML SYRINGE SC SCH (10:26)
[2025-03-22] MEDS: CLOPIDOGREL BISULFATE 75 MG TAB PO SCH (10:26)
--- NOTE | 2025-03-22 13:19 | ECG ---
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
[2025-03-22 15:30] VITALS: BP 134/63; PULSE 67; RESP 16; TEMP 97.4; O2SAT 98
--- NOTE | 2025-03-22 16:07 | DVHPNRES ---
Progress Note Date Seen: March 22, 2025 Resident Creating Document: CLAUDIA SMITH RESIDENT Medical Necessity Reason Pt with a Central, PICC or Fol: Yes The following are medically ne: Perrin Catheter Subjective Review of Systems Patient is a 69-year-old female with a past medical history as described below was brought to the ED via EMS because of altered mental status. According to her daughter (not at bedside), the patient was noted to be confused and not acting like herself after waking from a nap around 3 PM today. Daughter reported that "she kept looking through me" and was not responding appropriately following which she called the EMS. Patient has been bed-bound for the last 4 months and was apparently released from rehab facility about 4 weeks ago. Patient also has a Perrin's catheter since the last 4 months sudden gets changed every 30 days. At baseline per the daughter patient is A&O x4 till yesterday afternoon when she noticed that the patient was altered. Past medical history: ID/coronary artery disease s/p 3 ДМИТРИЙ to LAD and 1 to RCA, HFrEF, depression, COPD, type 2 diabetes mellitus, chronic back pain status post multiple back surgeries on pain management, history of small-bowel obstruction, ventral hernia Past surgical history: Exploratory laparotomy for SBO, s/p AICD placement, s/p PCI, cholecystectomy, appendectomy Social history: Lives with her daughter, discharged from a physical therapy rehab facility about 4 weeks ago, was smoking until September 2024 and denies alcohol and any other drug use Home medications: Carvedilol 3.125 mg b.i.d., clopidogrel and aspirin, Lasix 40 mg, losartan 50 mg, insulin Review of systems Patient seen and examined at the bedside Alert and oriented X 2 and is following commands with comprehensible speech and no focal weakness Reports of back pain, denies chest pain or shortness of breath while on oxygen at 2 L/min Objective vital signs Vital Sign Date Time Temp Pulse Resp B/P (MAP) Pulse Ox O2 Delivery O2 Flow Rate FiO2 03/22/25 14:00 64 14 126/68 (87) 99 03/22/25 07:45 97.9 97.9 03/22/25 07:45 Room Air* 0 21 Total Intake and Output 03/21/25 03/21/25 03/22/25 15:00 23:00 07:00 Intake Total 1300 ml Balance 1300 ml medications Current Medications Medications Dose Ordered Sig/Yesica Route Start Time Stop Time Status Last Admin Dose Admin Acetaminophen 650 mg Q6HP PRN PO 03/22/25 03:45 Enoxaparin Sodium 40 mg DAILY SC 03/22/25 10:00 03/22/25 10:26 40 MG Vancomycin HCl 0 ml @ 0 mls/hr UD IV 03/22/25 03:45 Aspirin 81 mg DAILY PO 03/22/25 10:00 03/22/25 10:25 81 MG Clopidogrel Bisulfate 75 mg DAILY PO 03/22/25 10:00 03/22/25 10:26 75 MG Furosemide 40 mg DAILY IV 03/22/25 10:00 Hold Pantoprazole Sodium 40 mg DAILY IV 03/22/25 10:00 03/22/25 10:25 40 MG Atorvastatin Calcium 40 mg HS PO 03/22/25 22:00 Diagnostic Test (Pha) 1 strip Q6HR 03/22/25 12:00 03/22/25 12:53 1 STRIP Insulin Human Regular Q6HR SC 03/22/25 12:00 03/22/25 12:55 3 UNITS Dextrose 50 ml UD PRN IV 03/22/25 08:30 Azithromycin 500 mg DAILY PO 03/22/25 10:00 03/22/25 10:25 500 MG Ceftriaxone Sodium 50 ml @ 100 mls/hr DAILY@09 IV 03/23/25 09:00 Vancomycin HCl 200 ml @ 200 mls/hr DAILY IV 03/23/25 04:00 Examination Constitutional: Patient was alert and oriented x2 and is confused Gen - mild conjunctival pallor, no icterus, no cyanosis, no clubbing, no LAD, no edema . Skin - Patients skin is warm and dry. HEENT - normocephalic, atraumatic, moist mucous membranes. Neck - full ROM, no LAD, jugular which venous distention seen up to the middle half of SCM Pulmonary - B/L air entry with diffuse crackles, no wheezing, no stridor. cardiovascular - variable S1,S2 heard, no added sounds, no murmurs heard. capillary refill normal about 2 secs. GI - soft abdomen with minimal generalized tenderness to palpation. no hepatospleenomegaly. Bowel sounds normoactive Neurological - Bilateral upper extremity strength 4/5, bilateral lower extremity strength 3/5, no facial droop, comprehensible speech, no tremor, no sensory deficiets. laboratory and microbiology Laboratory Tests 03/22/25 06:20 Test 03/22/25 06:20 Range/Units Serum Glucose 280 H 74-106 mg/dL Problem List/Assessment/Plan Problem List/Assessment/Plan Acute metabolic encephalopathy likely due to UTI - head CT shows no acute intracranial hemorrhage, small-vessel ischemic changes seen - on antibiotics Acute on chronic hypoxic respiratory failure COPD ? Exacerbation Pneumonia likely due to Gram +/- bacteria Pulmonary edema Small bilateral pleural effusions - on oxygen with a cannula, maintain SpO2 88-92% - IV antibiotics Acute on chronic heart failure with reduced ejection fraction Ischemic cardiomyopathy Cardiomegaly Coronary artery disease s/p PCI with 4 ДМИТРИЙ - last echo in August 2024 shows LVEF 25% with anterior anteroseptal anteroapical wall akinesia - BNP elevated - as the patient currently is in sepsis, we held diuresis - GDMT currently held because of the patient being in sepsis - on DAPT - cardiology consulted Sepsis likely due to pneumonia/UTI Sacral ulcer stage II - urine, blood, sputum, wound culture pending - urinary bladder wall thickening seen on CT - IV antibiotics vancomycin and ceftriaxone Uncontrolled type 2 diabetes with hyperglycemia - HbA1c 11.5% - insulin Lantus low dose at 15 units - mild ISS History of SBO s/p exploratory laparotomy Currently no GI issues - swallow evaluation done patient tolerating mechanical soft diet Microcytic hypochromic anemia - ferritin and iron panel pending DVT prophylaxis: Enoxaparin PUD prophylaxis: Protonix Goals of care discussed with the patient's daughter for over 27 minutes. Full code Plan discussed with Dr. Azevedo Plan discussed with: Patient, Daughter (Aaliyah), Other (RN) My Orders My Orders Orders - CLAUDIA SMITH RESIDENT Procedure Category Date Status Time Atorvastatin (Lipitor) PHA 03/22/25 In Process 22:00 Glucose Blood PHA 03/22/25 In Process (Accu-Chek Comfort 12:00 Insulin R (Human) PHA 03/22/25 In Process (Insulin R) 12:00 Dextrose 50% Syringe PHA 03/22/25 In Process 08:30 Pharmacy DIANA 03/22/25 In Process Clarification: 08:45 Urine Bacterial RAGHAV 03/22/25 Uncollected Culture 08:55 Wound Culture W/ Gs RAGHAV 03/22/25 Uncollected 08:55 Azithromycin Tablet PHA 03/22/25 In Process (Zithromax Tablet) 10:00 Ceftriaxone 1gm/50ml PHA 03/23/25 In Process D5w (Rocephin) 09:00 Date of Service: March 22, 2025 Billing Provider: LARISA AZEVEDO MD Common Visit Codes: [id number] CARE 30-74 MIN CLAUDIA SMITH RESIDENT March 22, 2025 16:07 LARISA AZEVEDO MD March 23, 2025 21:05
[2025-03-22] MEDS ORDERED: HYDROcodone-ACET 5/325MG TAB PO PRN (18:00)
[2025-03-22] MEDS: HYDROcodone-ACET 5/325MG TAB PO PRN (18:29)
[2025-03-22 20:00] VITALS: PULSE 71; RESP 16; O2SAT 100
[2025-03-22 21:00] VITALS: BP 142/67; PULSE 71; RESP 16; TEMP 97.7; O2SAT 100
[2025-03-22] MEDS: ATORVASTATIN 20 MG TAB PO SCH (21:45)
[2025-03-22] MEDS ORDERED: ATORVASTATIN 20 MG TAB PO SCH (22:00)
[2025-03-22] MEDS ORDERED: INSULIN LANTUS (GLARGINE) 1 /0.01ml (100units/ml) SC SCH (22:00)
[2025-03-23] VITALS (55 sets, daily range): BP systolic 79–165; BP diastolic 36–77; PULSE 60–94; RESP 0–28; TEMP 97.5–98.2; O2SAT 91–100
[2025-03-23] MEDS: VANCOMYCIN 1GM/200ML PM 200 ML IV SCH (04:35)
[2025-03-23 06:08] LABS: Basophils # (auto) 0 10 ^3/uL (0-0.2); Hemoglobin 9.7 g/dL (12.2-16.2); Lymphocytes # (auto) 1.3 10 ^3/uL (0.4-5.4); Monocytes # (auto) 0.5 10 ^3/uL (0-1.3); Neutrophils # (auto) 5.4 10 ^3/uL (1.6-8.6); White Blood Cell 7.4 10^3/uL (4.4-10.8)
[2025-03-23 06:10] LABS: Basophils % (auto) 0.4 % (0.0-2.0); Eosinophils # (auto) 0.2 10 ^3/uL (0-0.8); Eosinophils % (auto) 2.3 % (0.0-7.0); Hematocrit 29.8 % (36.0-46.0); Lymphocytes % (auto) 17.7 % (10.0-50.0); Mean Corpuscular Hemoglobin 25.1 pg (28.0-32.0); Mean Corpuscular Hgb Conc. 32.6 g/dL (32.0-36.0); Monocytes % (auto) 6.8 % (0.0-12.0); Neutrophils % (auto) 72.8 % (37.0-80.0); Platelet Count (auto) 321 10^3/uL (140-450); Red Blood Cells 3.87 10^6/uL (4.0-5.20); Red Cell Distribution Width 17.6 % (11.8-14.3)
[2025-03-23 06:29] LABS: % Iron Saturation 8.6 % (15-50)
[2025-03-23 06:35] LABS: Albumin 3.8 g/dL (3.2-4.8); Anion Gap 9 (5-15); BUN/Creatinine Ratio 12.8 (10.0-20.0); Bilirubin, Total 0.5 mg/dL (0.2-1.0); Blood Urea Nitrogen 12 mg/dL (9-23); Calcium 9.3 mg/dL (8.7-10.4); Carbon Dioxide 26 mmol/L (20-31); Chloride 103 mmol/L (98-107); Magnesium 2.1 mg/dL (1.6-2.6); Potassium 3.8 mmol/L (3.5-5.1); Sodium 138 mmol/L (136-145); Total Protein 6.4 g/dL (5.7-8.2)
[2025-03-23 06:39] LABS: Alanine Aminotransferase 42 U/L (7-40); Alkaline Phosphatase 128 U/L (46-116); Aspartate Aminotransferase 69 U/L (13-40); Glucose 142 mg/dL (74-106)
[2025-03-23] MEDS: IPRATROPIUM BROM 0.5 MG/2.5ML INH SOL NEB ONE (08:50)
[2025-03-23] MEDS: ALBUTEROL SULF 2.5 MG/0.5ML(0.5%) NEB SOLN NEB ONE (08:50)
[2025-03-23] MEDS: FUROSEMIDE 40 MG/4 ML VIAL IV ONE ×3 (09:22→20:41)
[2025-03-23 09:26] LABS: Base Excess -6.6 mmol/L (-2.0-3.0)
[2025-03-23] MEDS ORDERED: FUROSEMIDE 20 MG/2 ML VIAL IV ONE (10:30)
[2025-03-23] MEDS: cefTRIAXone 1GM/50ML D5W 50 ML IV SCH (10:40)
[2025-03-23] MEDS ORDERED: fentaNYL Drip 2500mCg/250mlNS 250 ML IV SCH (11:15)
[2025-03-23] MEDS ORDERED: MIDAZOLAM DRIP 50 mg/50mL 50 ML IV SCH (11:15)
[2025-03-23] MEDS: ETOMIDATE (2MG/ML) 20ML VIAL IV ONE ×3 (11:16→18:05)
[2025-03-23] MEDS: ROCURONIUM 10MG/ML 10ML VIAL IV ONE ×3 (11:16→18:05)
[2025-03-23] MEDS: fentaNYL Drip 2500mCg/250mlNS 250 ML IV ONE (11:17)
[2025-03-23] MEDS: NOREPINEPHRINE 8 MG/250ML KIT 250 ML IV ONE (11:17)
[2025-03-23] MEDS: IPRATROPIUM BROM 0.5 MG/2.5ML INH SOL NEB SCH (12:15)
[2025-03-23] MEDS: hydrOXYzine HCL 10 MG TAB PO ONE (12:15)
[2025-03-23] MEDS: ALBUTEROL SULF 2.5 MG/0.5ML(0.5%) NEB SOLN NEB SCH (12:15)
[2025-03-23] MEDS: methylPREDNISolone SOD SUCC 40 MG/ML VL IV ONE (12:26)
--- NOTE | 2025-03-23 14:06 | DVH ---
CHEST RADIOGRAPH Indication: INTUBATION Technique: Single frontal view of the chest was obtained COMPARISON: XY CHEST XRAY 1 VIEW on DOS: 03/22/25, XY CHEST XRAY 1 VIEW on DOS: 10/31/24, XY CHEST PORT ABLE on DOS: 10/24/24, XY CHEST PORTABLE on DOS: 10/23/24, XY CHEST PORTABLE on DOS: 09/25/24 FINDINGS: Lines and Tubes: Right central venous catheter, endotracheal tube and enteric catheter in satisfactor y position. Left chest AICD in satisfactory position. Lungs: Multifocal airspace disease. Pleura: No effusion. No pneumothorax. Cardiomediastinal contours: Cardiomegaly Bones: Unremarkable IMPRESSION: Increased multifocal airspace disease. Lines and tubes in satisfactory position.
--- NOTE | 2025-03-23 14:25 | DVHINCON2 ---
Date of service: March 23, 2025 History of Present Illness 69 yo F with class IV CHF, systolic HF, Mitral regurg, severe cad s/p pci, non ambulatory chronically ill pt admitted for ADHF. pt was on bipap but has severe pulm infiltrates. pt now intubated. Past Medical History revfiewed Family History: Cardiovascular disease G8 MOTHER G8 FATHER Diabetes during Diabetes mellitus G8 MOTHER G8 FATHER FH: dementia G8 MOTHER Hypertension G8 MOTHER Allergies: Coded Allergies: Codeine (Verified Allergy, Unknown, 03/21/25) Iodine (Verified Allergy, Unknown, 04/04/18) Lorazepam (Verified Allergy, Unknown, 09/05/18) Home Meds Active Scripts Clopidogrel Bisulfate (CLOPIDOGREL) 75 Mg Tab, 75 MG PO DAILY for 30 Days, #30 TAB Prov:VARSHA LOFTON RESIDENT 08/29/24 Aspirin (Aspirin Low Dose) 81 Mg Tab, 81 MG PO DAILY for 30 Days, #30 TAB Prov:VARSHA LOFTON RESIDENT 08/29/24 Insulin Regular (Human) (Novolin R) 100 Unit/Ml Inj, 0 UNITS SC ACHS for 90 Days, #90 INJ Please use insulin Reglan 3 times a day before meal. Follow below instruction. Please check glucose via glucometer 3 times a day. If blood glucose is between 150 and 200 please administer 2 units of regular insulin. If blood glucose is between 200-250 please administer 4 units of regular insulin. If blood sugar is between 250 and 300 please administer 8 units of regular insulin. If blood sugar between 300-350 please administered 10 units of regular insulin. If blood sugars between 350 and 400 please administer 12 units of regular insulin. If blood sugars greater than 400 please talk to /come to the hospital. Prov:KJ HERMOSILLO RESIDENT 05/17/24 Carvedilol (COREG) 3.125 Mg Tab, 3.125 MG PO Q12HR for 30 Days, #60 TAB Prov:NUHA CORREIA MD 08/14/22 Reported Medications Hydrocodone-Acetaminophen (Hydrocodone Bitartrate/AC 10-325 mg) 1 Tab Tab, 1 TAB PO Q6HR PRN for 30 Days, #120 03/23/25 Gabapentin (Gabapentin) 300 Mg Cap, CAP PO UD for 30 Days, #120 TAKE 1 CAPSULE BY MOUTH IN THE MORNING, AND TAKE 2 CAPSULES BY MOUTH AT NIGHT. IF NO RELIEF, MAY INCREASE TO 3 CAPSULES AT NIGHT. 03/23/25 Fluoxetine Hcl (Fluoxetine Hcl) 40 Mg Cap, 2 CAP PO DAILY for 30 Days, #60 03/23/25 Atorvastatin Calcium (ATORVASTATIN CALCIUM) 10 Mg Tab, 1 TAB PO DAILY for 30 Days, #30 03/23/25 Potassium Chloride (Potassium Chloride ER) 10 Meq Tab, 1 TAB PO DAILY for 30 Days, #30 03/23/25 Empagliflozin (Jardiance) 10 Mg Tab, 1 TAB PO DAILY for 30 Days, #30 03/23/25 Furosemide (Furosemide) 40 Mg Tab, 1 TAB PO DAILY for 90 Days, #90 09/26/24 Pantoprazole Sodium Sesquihydr (Protonix) 40 Mg Tab, 20 MG PO DAILY 12/14/23 Losartan Potassium (Losartan Potassium) 50 Mg Tab, 1 TAB PO DAILY 12/14/23 Current Medications Current Medications Medications (Trade) Dose Ordered Sig/Yesica Route PRN Reason Start Time Stop Time Status Last Admin Atorvastatin Calcium (Lipitor) 10 mg HS PO 03/22/25 22:00 03/22/25 08:32 DC Insulin Glargine (Lantus) 15 units HS SC 03/22/25 22:00 03/22/25 08:32 DC Atorvastatin Calcium (Lipitor) 40 mg HS PO 03/22/25 22:00 03/22/25 21:45 Ceftriaxone Sodium 50 ml @ 100 mls/hr DAILY@09 IV 03/23/25 09:00 03/23/25 10:40 Vancomycin HCl 200 ml @ 200 mls/hr DAILY IV 03/23/25 04:00 03/23/25 04:35 Acetaminophen/ Hydrocodone Bitart (Moran 5/325MG Tab) 1 tab Q6HPRN PRN PO MODERATE PAIN (4-6 PAIN SCALE) 03/22/25 18:00 03/22/25 18:00 DC Acetaminophen/ Hydrocodone Bitart (Moran 5/325MG Tab) 1 tab Q6HPRN PRN PO MODERATE PAIN (4-6 PAIN SCALE) 03/22/25 18:00 03/22/25 18:29 Diagnostic Test (Pha) (Accu-Chek Comfort Curve T) 1 strip Q6HR 03/23/25 00:00 03/23/25 05:30 Insulin Human Regular (InsuLIN R) Q6HR SC 03/23/25 00:00 03/23/25 05:30 Dextrose 50 ml UD PRN IV Blood Sugar LESS THAN 60 03/22/25 19:45 Albuterol (Ventolin Medneb) 2.5 mg Q6HR NEB 03/23/25 12:00 03/23/25 12:15 Ipratropium [place] (Atrovent Medneb) 0.5 mg Q6HR NEB 03/23/25 12:00 03/23/25 12:15 Midazolam HCl 50 ml @ 1 mls/hr Q24H IV 03/23/25 11:15 03/23/25 11:16 DC Fentanyl Citrate 250 ml @ 2.5 mls/hr Q24H IV 03/23/25 11:15 Hold Fentanyl Citrate 250 ml @ 2.5 mls/hr Q24H IV 03/23/25 13:00 UNV Norepinephrine Bitartrate 250 ml @ 3.75 mls/hr Q24H IV 03/23/25 13:00 UNV Review of Systems not obtained Vital Signs Vital Signs Date Time Temp Pulse Resp B/P (MAP) Pulse Ox O2 Delivery O2 Flow Rate FiO2 03/23/25 13:00 88 22 136/47 (76) 95 80 03/23/25 12:15 Facial BiPAP Mask 03/23/25 08:50 4 03/23/25 08:34 97.7 97.7 Physical Exam intubated sedated s1 s2 rrr diffuse rhonchi abd soft non tender Labs/Diagnostic Data Labs Test 03/23/25 12:35 03/23/25 09:20 03/23/25 04:45 03/22/25 01:50 Range/Units POC Glucose 312 H 70-106 mg/dl Blood Gas Specimen Type Arterial Blood Gas Sample Site Right radial Blood Gas Patient Temperature 37.0 Arterial Blood Date Drawn [id number] Arterial Blood pH 7.353 7.350-7.450 Arterial Blood Partial Pressure CO2 33.2 32.0-45.0 mmHg Arterial Blood Partial Pressure O2 77.3 L 83.0-108.0 mmHg Arterial Blood HCO3 18.0 L 21.0-28.0 mmol/L Arterial Blood Oxygen Saturation 92.8 L 94.0-98.0 % Arterial Blood Base Excess -6.6 L -2.0-3.0 mmol/L Arterial Blood Oxyhemoglobin 92.2 L 94.0-98.0 % Arterial Blood Carboxyhemoglobin 0.5 0.5-1.5 % Arterial Blood Methemoglobin 0.1 0.0-1.5 % Moustapha Test Modified Blood Gas Total Hemoglobin 11.40 L 12.0-16.0 g/dL Blood Gas Set Respiration Rate 12.0 Blood Gas Modality Mask - bipap FiO2 % 40.0 Blood Gas EPAP 5 Blood Gas IPAP 12 White Blood Count 7.4 4.4-10.8 10^3/uL Red Blood Count 3.87 L 4.0-5.20 10^6/uL Hemoglobin 9.7 L 12.2-16.2 g/dL Hematocrit 29.8 L 36.0-46.0 % Mean Corpuscular Volume 77.0 L 80.0-100.0 fL Mean Corpuscular Hemoglobin 25.1 L 28.0-32.0 pg Mean Corpuscular Hemoglobin Concent 32.6 32.0-36.0 g/dL Red Cell Distribution Width 17.6 H 11.8-14.3 % Platelet Count 321 140-450 10^3/uL Mean Platelet Volume 7.5 6.9-10.8 fL Neutrophils (%) (Auto) 72.8 37.0-80.0 % Lymphocytes (%) (Auto) 17.7 10.0-50.0 % Monocytes (%) (Auto) 6.8 0.0-12.0 % Eosinophils (%) (Auto) 2.3 0.0-7.0 % Basophils (%) (Auto) 0.4 0.0-2.0 % Neutrophils # (Auto) 5.4 1.6-8.6 10 ^3/uL Lymphocytes # (Auto) 1.3 0.4-5.4 10 ^3/uL Monocytes # (Auto) 0.5 0-1.3 10 ^3/uL Eosinophils # (Auto) 0.2 0-0.8 10 ^3/uL Basophils # (Auto) 0 0-0.2 10 ^3/uL Nucleated Red Blood Cells 0.0 % Sodium Level 138 136-145 mmol/L Potassium Level 3.8 3.5-5.1 mmol/L Chloride Level 103 98-107 mmol/L Carbon Dioxide Level 26 20-31 mmol/L Anion Gap 9 5-15 Blood Urea Nitrogen 12 9-23 mg/dL Creatinine 0.94 0.550-1.02 mg/dL Glomerular Filtration Rate Calc 65 >90 mL/min BUN/Creatinine Ratio 12.8 10.0-20.0 Serum Glucose 142 H 74-106 mg/dL Calcium Level 9.3 8.7-10.4 mg/dL Magnesium Level 2.1 1.6-2.6 mg/dL Iron Level 22 L 50-170 ug/dL Total Iron Binding Capacity 257 250-425 ug/dL Percent Iron Saturation 8.6 L 15-50 % Ferritin 61.3 10-291 ng/mL Total Bilirubin 0.5 0.2-1.0 mg/dL Aspartate Amino Transferase (AST) 69 H 13-40 U/L Alanine Aminotransferase (ALT) 42 H 7-40 U/L Alkaline Phosphatase 128 H 46-116 U/L Total Protein 6.4 5.7-8.2 g/dL Albumin 3.8 3.2-4.8 g/dL Influenza Type A Antigen Negative Negative Influenza Type B Antigen Negative Negative SARS-CoV-2 Antigen (Rapid) Negative NEGATIVE Test 03/22/25 01:15 03/22/25 00:15 Range/Units Urine Color Light-orange Yellow Urine Clarity Turbid H Clear Urine pH 6.0 5.0-9.0 Urine Specific [place] 1.016 1.001-1.035 Urine Protein 1+ H Negative Urine Ketones Negative Negative Urine Blood 1+ H Negative /uL Urine Nitrite Negative Negative Urine Bilirubin Negative Negative Urine Urobilinogen 4 H Negative mg/dL Urine Leukocyte Esterase 3+ Negative /uL Urine RBC 25 0 - 4 /hpf Urine WBC Clumps Present None Seen /hpf Urine Microscopic WBC 596 H 0-5 /HPF Urine Squamous Epithelial Cells Few <5 /hpf Urine Bacteria Mod H None Seen /hpf Urine Mucus Few None Seen Urine Glucose 3+ H Normal mg/dL Hemoglobin A1c 11.5 H <5.7 % A1C Lactic Acid Level 1.9 0.4-2.0 mmol/L Troponin I High Sensitivity 16 </=34 ng/L B-Type Natriuretic Peptide 2378.35 0-100 pg/mL Thyroid Stimulating Hormone (TSH) 3.30 0.55-4.78 uIU/mL Microbiology Date/Time Source Procedure Growth Status 03/23/25 05:42 Nose MRSA Screen - Final Complete 03/22/25 09:57 Voided Urine Urine Culture - Preliminary Resulted 03/22/25 00:15 Blood Blood Culture - Preliminary Resulted Assessment acute on chronic class IV systolic HF ckd cad s/ p pci IVCD weakness frailty HTN Plan/Recommendation iv lasix consider adding milrinone gtt as bp 160s cont dapt resp management per specialist HF Meds, beta gni, poor /guarded prognsis uti chronic wahl as stated in previous notes last year pt not a candidate for aggressive measures given her very poor functional status , still the case 40 mins critical care time spent Plan discussed with: Patient KOLTON RAMOS MD March 23, 2025 14:25
[2025-03-23 14:38] LABS: Base Excess -1.6 mmol/L (-2.0-3.0)
[2025-03-23] MEDS: MILRINONE 20MG/100ML 100 ML IV SCH (14:45)
[2025-03-23] MEDS: MILRINONE 4 MG in SODIUM CHL 0.9% 50 ML IV ONE (14:45)
[2025-03-23] MEDS: PROPOFOL 100 ML IV ONE (15:41)
--- NOTE | 2025-03-23 17:52 | DVHNC2 ---
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) Indication: Hypotension Room prepared for procedure: Yes Barrel Finisher performed hand hygien: Yes Maximal sterile barrier precau: Mask/Eye shield, Sterile gown, Cap, Sterlie gloves, Large sterlie drape Skin Preparation: Chlorhexidine gluconate, Providine iodine Skin preparation completely dr: Yes Insertion site: Right, Infraclavicular Central line catheter type: Iyn-dylnqove-cpe dialysis Number of lumens: 3 Central line exchanged over a: No Antiseptic ointment applied to: Yes Post Assessment: Chest X-Ray, Proper placement UTO Consent YES Notes Right subclavian Vein triple lumen central venous catheter placed at 15 cm and sut[address] in place Position confirmed in the X ray Date of Service: March 23, 2025 Billing Provider: LARISA AZEVEDO MD Common Visit Codes: PROCEDURE ONLY Procedure Codes: [id number] NON-TUNNEL CV CATH CLAUDIA SMITH March 23, 2025 17:52 LARISA AZEVEDO MD March 23, 2025 21:06
--- NOTE | 2025-03-23 17:56 | DVHNC2 ---
Intubation Indication: Respiratory Insufficiency Prep: Preoxygenation Pretreated with: Sedation Medicated with: Other (Rocuronium) Intubation Approach: Orotracheal Informed consent obtained: Yes Notes 8mm ET tube placed at 24 cm at the lip Positive color change on the calorimetric capnograph condensation seen in the ETT B/L chest rise and breath sounds heard placement confirmed with an X ray Date of Service: March 23, 2025 Billing Provider: CLAUDIA SMITH Common Visit Codes: PROCEDURE ONLY Procedure Codes: [id number] CLAUDIA SMITH March 23, 2025 17:56 LARISA AZEVEDO MD March 23, 2025 21:06
--- NOTE | 2025-03-23 17:56 | DVHPNRES ---
Progress Note Date Seen: March 23, 2025 Resident Creating Document: CLAUDIA SMITH RESIDENT Medical Necessity Reason Pt with a Central, PICC or Fol: Yes The following are medically ne: Perrin Catheter Subjective Review of Systems HPI Patient is a 69-year-old female with a past medical history as described below was brought to the ED via EMS because of altered mental status. According to her daughter (not at bedside), the patient was noted to be confused and not acting like herself after waking from a nap around 3 PM today. Daughter reported that "she kept looking through me" and was not responding appropriately following which she called the EMS. Patient has been bed-bound for the last 4 months and was apparently released from rehab facility about 4 weeks ago. Patient also has a Perrin's catheter since the last 4 months sudden gets changed every 30 days. At baseline per the daughter patient is A&O x4 till yesterday afternoon when she noticed that the patient was altered. Past medical history: AK/coronary artery disease s/p 3 ДМИТРИЙ to LAD and 1 to RCA, HFrEF, depression, COPD, type 2 diabetes mellitus, chronic back pain status post multiple back surgeries on pain management, history of small-bowel obstruction, ventral hernia Past surgical history: Exploratory laparotomy for SBO, s/p AICD placement, s/p PCI, cholecystectomy, appendectomy Social history: Lives with her daughter, discharged from a physical therapy rehab facility about 4 weeks ago, was smoking until September 2024 and denies alcohol and any other drug use Home medications: Carvedilol 3.125 mg b.i.d., clopidogrel and aspirin, Lasix 40 mg, losartan 50 mg, insulin Review of systems Patient seen and examined at the bedside In the morning patient was seen to have increased respiratory rate with the work of breathing, bilateral crackles and wheezing was heard on auscultation Patient was given breathing treatment and was put on BiPAP On BiPAP for 2-3 hours with the patient was wearing out with increased work of breathing and had to be intubated and put on mechanical ventilation after discussion with the patient and her daughter Perrin's catheter was changed Objective vital signs Vital Sign Date Time Temp Pulse Resp B/P (MAP) Pulse Ox O2 Delivery O2 Flow Rate FiO2 03/23/25 16:10 68 22 113/52 (72) 93 50 03/23/25 12:15 Facial BiPAP Mask 03/23/25 08:50 4 03/23/25 08:34 97.7 97.7 Total Intake and Output 03/22/25 03/22/25 03/23/25 15:00 23:00 07:00 Intake Total 0 ml 700 ml Output Total 700 ml 250 ml Balance -700 ml 450 ml medications Current Medications Medications Dose Ordered Sig/Yesica Route Start Time Stop Time Status Last Admin Dose Admin Acetaminophen 650 mg Q6HP PRN PO 03/22/25 03:45 Enoxaparin Sodium 40 mg DAILY SC 03/22/25 10:00 03/23/25 10:43 40 MG Vancomycin HCl 0 ml @ 0 mls/hr UD IV 03/22/25 03:45 Aspirin 81 mg DAILY PO 03/22/25 10:00 03/22/25 10:25 81 MG Clopidogrel Bisulfate 75 mg DAILY PO 03/22/25 10:00 03/22/25 10:26 75 MG Furosemide 40 mg DAILY IV 03/22/25 10:00 Hold Pantoprazole Sodium 40 mg DAILY IV 03/22/25 10:00 03/23/25 10:40 40 MG Atorvastatin Calcium 40 mg HS PO 03/22/25 22:00 03/22/25 21:45 40 MG Ceftriaxone Sodium 50 ml @ 100 mls/hr DAILY@09 IV 03/23/25 09:00 03/23/25 10:40 100 MLS/HR Vancomycin HCl 200 ml @ 200 mls/hr DAILY IV 03/23/25 04:00 03/23/25 04:35 200 MLS/HR Acetaminophen/ Hydrocodone Bitart 1 tab Q6HPRN PRN PO 03/22/25 18:00 03/22/25 18:29 1 TAB Diagnostic Test (Pha) 1 strip Q6HR 03/23/25 00:00 03/23/25 05:30 1 STRIP Insulin Human Regular Q6HR SC 03/23/25 00:00 03/23/25 05:30 2 UNITS Dextrose 50 ml UD PRN IV 03/22/25 19:45 Albuterol 2.5 mg Q6HR NEB 03/23/25 12:00 03/23/25 12:15 2.5 MG Ipratropium [place] 0.5 mg Q6HR NEB 03/23/25 12:00 03/23/25 12:15 0.5 MG Fentanyl Citrate 250 ml @ 2.5 mls/hr Q24H IV 03/23/25 13:00 Norepinephrine Bitartrate 250 ml @ 3.75 mls/hr Q24H IV 03/23/25 13:00 Milrinone Lactate 100 ml @ 8.494 mls/ hr [id number] IV 03/23/25 14:45 Examination Constitutional: Sedated and on mechanical ventilation, RASS -3 Gen - mild conjunctival pallor, no icterus, no cyanosis, no clubbing, no LAD, no edema . Skin - Patients skin is warm and dry. HEENT - normocephalic, atraumatic, moist mucous membranes. Neck - full ROM, no LAD, jugular which venous distention seen up to the middle half of SCM Pulmonary - B/L air entry with diffuse crackles, expiratory wheezing, no stridor. cardiovascular - variable S1,S2 heard, no added sounds, systolic murmur heard at the apex. capillary refill less than 3 seconds GI - soft abdomen. Bowel sounds normoactive Neurological - patient is sedated on mechanical ventilation, pupils equal and reactive, gag reflex present, bilateral plantar reflex downgoing laboratory and microbiology Laboratory Tests 03/23/25 04:45 Test 03/23/25 04:45 Range/Units Serum Glucose 142 H 74-106 mg/dL Microbiology Date/Time Source Procedure Growth Status 03/23/25 05:42 Nose MRSA Screen - Final Complete 03/22/25 09:57 Voided Urine Urine Culture - Preliminary Resulted 03/22/25 00:15 Blood Blood Culture - Preliminary Resulted Problem List/Assessment/Plan Problem List/Assessment/Plan Neurology Acute metabolic encephalopathy likely due to UTI - head CT shows no acute intracranial hemorrhage, small-vessel ischemic changes seen - on mechanical ventilation Respiratory Acute on chronic hypoxic respiratory failure COPD ? Exacerbation Pneumonia likely due to Gram +/- bacteria Pulmonary edema Small bilateral pleural effusions - on mechanical ventilation - IV Lasix - nebs q.6 hours Cardiovascular Acute on chronic heart failure with reduced ejection fraction Ischemic cardiomyopathy Cardiomegaly Coronary artery disease s/p PCI with 4 ДМИТРИЙ Shock likely cardiogenic/septic - last echo in August 2024 shows LVEF 25% with anterior anteroseptal anteroapical wall akinesia - BNP elevated - diuresis - GDMT currently held because of the patient being in shock - on DAPT - vasopressor with norepinephrine - cardiology consulted Infectious disease Septic shock likely due to pneumonia/UTI Sacral ulcer stage II - urine, blood, sputum, wound culture pending - urinary bladder wall thickening seen on CT - IV antibiotics vancomycin and ceftriaxone Endocrinology Uncontrolled type 2 diabetes with hyperglycemia - HbA1c 11.5% - mild ISS , patient NPO GI History of SBO s/p exploratory laparotomy Currently no GI issues Hematology Microcytic hypochromic anemia ?Anemia of chronic disease DVT prophylaxis: Enoxaparin PUD prophylaxis: Protonix Right subclavian triple-lumen central venous catheter started on 03/23 Perrin's catheter was changed on 03/23 Patient intubated on 03/23 Goals of care discussed with the patient's daughter for over 26 minutes. Full code Critical care time spent excluding procedures: 76 minutes Plan discussed with Dr. Azevedo Plan discussed with: Daughter (Aaliyah), Other (RN ( Zoila )) My Orders My Orders Orders - CLAUDIA SMITH RESIDENT Procedure Category Date Status Time Cleanse Wound With DIANA 03/22/25 In Process Wound Clean 16:25 * Dietary Consult CONS 03/22/25 Transmitted 19:09 Glucose Blood PHA 03/23/25 In Process (Accu-Chek Comfort 00:00 Insulin R (Human) PHA 03/23/25 In Process (Insulin R) 00:00 Dextrose 50% Syringe PHA 03/22/25 In Process 19:45 Albuterol Medneb PHA 03/23/25 In Process (Ventolin Medneb) 12:00 Ipratropium Medneb PHA 03/23/25 In Process (Atrovent Medneb) 12:00 BIPAP RT 03/23/25 Logged 09:10 Abg W/ Co-Ox RT 03/23/25 Logged 09:16 Ventilator Setup RT 03/23/25 Logged 13:00 Respiratory Culture RAGHAV 03/23/25 In Process W/ Gs 13:03 Abg W/ Co-Ox RT 03/23/25 Logged 14:00 Lactic Acid W/ Reflex LAB 03/23/25 Logged Order 17:35 Comprehensive LAB 03/23/25 Logged Metabolic Panel 17:35 Dietary Evaluation Review Comments: Nutrition Recommendation: 1. TF Pivot 1.5 @ 45 ml/hr x 24 hr (GOAL) along with Pro-stat 1 pk daily. Begin @ 10 ml/hr; advance by 10 ml Q4 hrs or as tolerated to 45 ml/hr x 24 hrs 2. Provide free water flushes of 30 ml Q6 hrs (120 ml total); adjust PRN 3. Syd 1 pk BID, Vit C 500mg BID, Zinc sulfate 220 mb BID x 10 days, MVI w minerals 1 tab daily 4. Monitor BMP/lytes and replete to WNL/PRN TF Provision: TF at goal to provide 1080 ml total volume, 1620 kcal (+Pro-stat 100 kcal = 1720 kcal), 101 gm pro (+15gm prostat = 116gm), 820 ml H20 (meets 100% est. kcal needs, 100% est. pro needs) Expected Outcomes/Goals: To meet at least 75% estimated needs pressure ulcer & DTI to improve FU 2-3 days Date of Service: March 23, 2025 Billing Provider: LARISA AZEVEDO MD Common Visit Codes: [id number] CARE 30-74 MIN (crit care time 90 minutes), [id number] CARE-EACH +30MIN CLAUDIA SMITH RESIDENT March 23, 2025 17:56 LARISA AZEVEDO MD March 23, 2025 21:07
[2025-03-23] MEDS: NOREPINEPHRINE 8 MG/250ML KIT 250 ML IV SCH (18:06)
[2025-03-23] MEDS: fentaNYL Drip 2500mCg/250mlNS 250 ML IV SCH (18:07)
[2025-03-23] MEDS: INSULIN LISPRO (HUMAN) 100 UNITS/ML ML SC ONE (18:48)
[2025-03-23] MEDS: PROPOFOL 100 ML IV SCH (18:50)
[2025-03-23 18:54] LABS: Urine Bacteria FEW /hpf (None Seen); Urine Blood 1+ /uL (Negative); Urine Clarity Ex.Turbid (Clear); Urine Color Light-Brown (Yellow); Urine Mucus FEW (None Seen); Urine Protein, UAD TRACE (Negative); Urine Specific Gravity 1.009 (1.001-1.035); Urine Squamous Epithelial Cell FEW /hpf (<5); Urine Urobilinogen Normal (Negative); Urine WBC 630 /HPF (0-5); Urine WBC Clumps PRESENT /hpf (None Seen); Urine pH 5.5 (5.0-9.0)
[2025-03-23 19:02] LABS: Albumin 3.7 g/dL (3.2-4.8); Anion Gap 11 (5-15); BUN/Creatinine Ratio 12.5 (10.0-20.0); Bilirubin, Total 0.9 mg/dL (0.2-1.0); Blood Urea Nitrogen 14 mg/dL (9-23); Carbon Dioxide 24 mmol/L (20-31); Chloride 102 mmol/L (98-107); Potassium 3.9 mmol/L (3.5-5.1); Sodium 137 mmol/L (136-145); Total Protein 6.6 g/dL (5.7-8.2)
[2025-03-23 19:10] LABS: Alanine Aminotransferase 67 U/L (7-40); Alkaline Phosphatase 141 U/L (46-116); Aspartate Aminotransferase 161 U/L (13-40); Glucose 293 mg/dL (74-106)
[2025-03-23] MEDS: INSULIN LANTUS (GLARGINE) 1 /0.01ml (100units/ml) SC SCH (21:38)
[2025-03-24] VITALS (108 sets, daily range): BP systolic 93–136; BP diastolic 39–58; PULSE 60–77; RESP 14–24; TEMP 99–99.7; O2SAT 92–100
[2025-03-24 05:02] LABS: Basophils # (auto) 0 10 ^3/uL (0-0.2); Eosinophils # (auto) 0 10 ^3/uL (0-0.8); Hemoglobin 9.4 g/dL (12.2-16.2); Monocytes # (auto) 0.7 10 ^3/uL (0-1.3); Neutrophils # (auto) 9.4 10 ^3/uL (1.6-8.6); Neutrophils % (auto) 85.1 % (37.0-80.0); White Blood Cell 11.1 10^3/uL (4.4-10.8)
[2025-03-24 05:09] LABS: Hematocrit 29.2 % (36.0-46.0); Lymphocytes # (auto) 0.9 10 ^3/uL (0.4-5.4); Lymphocytes % (auto) 8.6 % (10.0-50.0); Mean Corpuscular Hemoglobin 24.7 pg (28.0-32.0); Mean Corpuscular Hgb Conc. 32.3 g/dL (32.0-36.0); Mean Corpuscular Volume 76.3 fL (80.0-100.0); Monocytes % (auto) 6.3 % (0.0-12.0); Platelet Count (auto) 452 10^3/uL (140-450); Red Blood Cells 3.83 10^6/uL (4.0-5.20); Red Cell Distribution Width 17.6 % (11.8-14.3)
[2025-03-24 05:22] LABS: Albumin 3.7 g/dL (3.2-4.8); Anion Gap 12 (5-15); BUN/Creatinine Ratio 16.9 (10.0-20.0); Bilirubin, Total 0.5 mg/dL (0.2-1.0); Blood Urea Nitrogen 21 mg/dL (9-23); Carbon Dioxide 26 mmol/L (20-31); Chloride 102 mmol/L (98-107); Potassium 3.6 mmol/L (3.5-5.1); Sodium 140 mmol/L (136-145); Total Protein 6.3 g/dL (5.7-8.2)
[2025-03-24 05:31] LABS: Magnesium 1.9 mg/dL (1.6-2.6)
[2025-03-24] MEDS: FUROSEMIDE 100 MG/10ML VIAL IV SCH (05:41)
--- NOTE | 2025-03-24 05:44 | DVH ---
CHEST RADIOGRAPH Indication: intubated, pulmonary edema Technique: Single frontal view of the chest was obtained COMPARISON: XY CHEST XRAY 1 VIEW on DOS: 03/23/25, XY CHEST XRAY 1 VIEW on DOS: 03/22/25, XY CHEST XRAY 1 VIEW on DOS: 10/31/24, XY CHEST PORTABLE on DOS: 10/24/24, XY CHEST PORTABLE on DOS: 10/23/24 FINDINGS: Lines and Tubes: Endotracheal tube, enteric catheter and right central venous catheter in satisfactor y position. Left chest wall AICD. Lungs: Multifocal airspace disease. Pleura: No effusion. No pneumothorax. Cardiomediastinal contours: Cardiomegaly Bones: Unremarkable IMPRESSION: Lines and tubes in satisfactory position. No significant interval change.
[2025-03-24 05:51] LABS: Alanine Aminotransferase 77 U/L (7-40); Alkaline Phosphatase 127 U/L (46-116); Aspartate Aminotransferase 190 U/L (13-40); Calcium 8.5 mg/dL (8.7-10.4); Glucose 127 mg/dL (74-106)
[2025-03-24 06:38] LABS: Base Excess -0.6 mmol/L (-2.0-3.0)
[2025-03-24] MEDS: acetaZOLAMIDE SODIUM 500 MG VL IV ONE (08:19)
[2025-03-24] MEDS: MAGNESIUM SULFATE 1GM/100ML 100 ML IV ONE (16:10)
[2025-03-24] MEDS: POTASSIUM CHL 20MEQ/50ML 50 ML IV SCH (16:13)
[2025-03-24] MEDS ORDERED: ACETAMINOPHEN 325 MG TAB PO PRN (17:45)
[2025-03-24] MEDS: Glucerna 1.2 Cal 1Liter BOTTLE GT SCH (18:10)
[2025-03-24 20:17] LABS: Base Excess -1.9 mmol/L (-2.0-3.0)
--- NOTE | 2025-03-24 21:30 | DVHPNRES ---
Progress Note Date Seen: March 24, 2025 Resident Creating Document: CLAUDIA SMITH RESIDENT Medical Necessity Reason Pt with a Central, PICC or Fol: Yes The following are medically ne: Perrin Catheter Subjective Review of Systems Patient seen and examined at the bedside Lightly sedated with RASS -2 chest x ray reviewed shows improved lung rascon with less congestion patient on minimal ventilator settings net negative fluid balance of -1.6L ABG- normal Objective vital signs Vital Sign Date Time Temp Pulse Resp B/P (MAP) Pulse Ox O2 Delivery O2 Flow Rate FiO2 03/24/25 20:41 60 22 111/43 (65) 99 30 03/24/25 20:00 99.1 99.1 03/24/25 20:00 Mechanical Ventilator+ 03/23/25 20:00 2 Total Intake and Output 03/23/25 03/23/25 03/24/25 15:00 23:00 07:00 Intake Total 50 ml 106.165 ml 170.77 ml Output Total 1500 ml 400 ml Balance 50 ml -1393.835 ml -229.23 ml medications Current Medications Medications Dose Ordered Sig/Yesica Route Start Time Stop Time Status Last Admin Dose Admin Enoxaparin Sodium 40 mg DAILY SC 03/22/25 10:00 03/24/25 10:27 40 MG Vancomycin HCl 0 ml @ 0 mls/hr UD IV 03/22/25 03:45 Aspirin 81 mg DAILY PO 03/22/25 10:00 03/24/25 10:27 81 MG Clopidogrel Bisulfate 75 mg DAILY PO 03/22/25 10:00 03/24/25 10:27 75 MG Pantoprazole Sodium 40 mg DAILY IV 03/22/25 10:00 03/24/25 10:27 40 MG Ceftriaxone Sodium 50 ml @ 100 mls/hr DAILY@09 IV 03/23/25 09:00 03/24/25 08:20 100 MLS/HR Vancomycin HCl 200 ml @ 200 mls/hr DAILY IV 03/23/25 04:00 03/24/25 10:27 200 MLS/HR Diagnostic Test (Pha) 1 strip Q6HR 03/23/25 00:00 03/24/25 17:38 1 STRIP Insulin Human Regular Q6HR SC 03/23/25 00:00 03/24/25 18:26 2 UNITS Dextrose 50 ml UD PRN IV 03/22/25 19:45 Albuterol 2.5 mg Q6HR NEB 03/23/25 12:00 03/24/25 18:38 2.5 MG Ipratropium [place] 0.5 mg Q6HR NEB 03/23/25 12:00 03/24/25 18:38 0.5 MG Fentanyl Citrate 250 ml @ 2.5 mls/hr Q24H IV 03/23/25 13:00 03/24/25 05:45 12.5 MLS/HR Norepinephrine Bitartrate 250 ml @ 3.75 mls/hr Q24H IV 03/23/25 13:00 03/23/25 18:06 3.75 MLS/HR Propofol 100 ml @ 2.265 mls/ hr Q24H IV 03/23/25 18:30 03/24/25 16:13 4.53 MLS/HR Enteral Nutritional Formula 1,000 ml 30ML/HR GT 03/24/25 14:30 03/24/25 18:10 1,000 ML Acetaminophen 650 mg Q6HP PRN PO 03/24/25 17:45 Furosemide 80 mg BIDD IV 03/25/25 06:00 Examination Constitutional: Sedated and on mechanical ventilation, RASS -3 Gen - mild conjunctival pallor, no icterus, no cyanosis, no clubbing, no LAD, no edema . Skin - Patients skin is warm and dry. HEENT - normocephalic, atraumatic, moist mucous membranes. Neck - full ROM, no LAD, jugular venous distention seen Pulmonary - B/L air entry with improved crackles, expiratory wheezing, no stridor. cardiovascular - variable S1,S2 heard, no added sounds, systolic murmur heard at the apex. capillary refill less than 3 seconds GI - soft abdomen. Bowel sounds normoactive Neurological - patient is sedated on mechanical ventilation, pupils equal and reactive, gag reflex present, bilateral plantar reflex downgoing laboratory and microbiology Laboratory Tests 03/24/25 04:25 Test 03/24/25 04:25 Range/Units Serum Glucose 127 H 74-106 mg/dL Microbiology Date/Time Source Procedure Growth Status 03/23/25 13:05 Sputum Gram Stain - Final Resulted 03/23/25 13:05 Sputum Respiratory Culture - Preliminary Resulted 03/23/25 05:42 Nose MRSA Screen - Final Complete 03/22/25 09:57 Voided Urine Urine Culture - Final Complete 03/22/25 00:15 Blood Blood Culture - Final Staphylococcus epidermidis Complete Problem List/Assessment/Plan Problem List/Assessment/Plan Neurology Acute metabolic encephalopathy likely due to UTI - head CT shows no acute intracranial hemorrhage, small-vessel ischemic changes seen - on mechanical ventilation, minimal vent settings Respiratory Acute on chronic hypoxic respiratory failure COPD ? Exacerbation Pneumonia likely due to Gram +/- bacteria Pulmonary edema Small bilateral pleural effusions - on mechanical ventilation - IV Lasix - nebs q.6 hours Cardiovascular Acute on chronic heart failure with reduced ejection fraction Ischemic cardiomyopathy Cardiomegaly Coronary artery disease s/p PCI with 4 ДМИТРИЙ Shock likely cardiogenic/septic - last echo in August 2024 shows LVEF 25% with anterior anteroseptal anteroapical wall akinesia - BNP elevated - diuresis - GDMT currently held because of the patient being in shock - on DAPT - vasopressor with norepinephrine - cardiology on board Infectious disease Septic shock likely due to pneumonia/UTI Sacral ulcer stage II - urine cultures show mixed teresa , blood cultures show staph epidermidis- repeated cultures, sputum, wound culture pending - urinary bladder wall thickening seen on CT - IV antibiotics vancomycin and ceftriaxone Endocrinology Uncontrolled type 2 diabetes with hyperglycemia - HbA1c 11.5% - mild ISS GI History of SBO s/p exploratory laparotomy Currently no GI issues - started on diet with NG tube Hematology Microcytic hypochromic anemia ?Anemia of chronic disease DVT prophylaxis: Enoxaparin PUD prophylaxis: Protonix Right subclavian triple-lumen central venous catheter started on 03/23 Perrin's catheter was changed on 03/23 Patient intubated on 03/23 Goals of care discussed with the patient's daughter for over 26 minutes. Full code Critical care time spent excluding procedures: 51 minutes Plan discussed with Dr. Ram Plan discussed with: Daughter, Other (RN ( Zoila )) My Orders My Orders Orders - CLAUDIA SMITH RESIDENT Procedure Category Date Status Time Blood Culture RAGHAV 03/24/25 In Process (Pediatric) 13:57 Nutritional PHA 03/24/25 In Process Supplements (Glucerna 14:30 Abg W/ Co-Ox RT 03/24/25 Logged 19:00 Ventilator Orders RT 03/24/25 Transmitted 17:37 Acetaminophen Tablet PHA 03/24/25 In Process (Tylenol Tablet) 17:45 Furosemide Injection PHA 03/25/25 In Process (Lasix Injection) 06:00 Dietary Evaluation Review Comments: Nutrition Recommendation: 1. TF Pivot 1.5 @ 45 ml/hr x 24 hr (GOAL) along with Pro-stat 1 pk daily. Begin @ 10 ml/hr; advance by 10 ml Q4 hrs or as tolerated to 45 ml/hr x 24 hrs 2. Provide free water flushes of 30 ml Q6 hrs (120 ml total); adjust PRN 3. Syd 1 pk BID, Vit C 500mg BID, Zinc sulfate 220 mb BID x 10 days, MVI w minerals 1 tab daily 4. Monitor BMP/lytes and replete to WNL/PRN TF Provision: TF at goal to provide 1080 ml total volume, 1620 kcal (+Pro-stat 100 kcal = 1720 kcal), 101 gm pro (+15gm prostat = 116gm), 820 ml H20 (meets 100% est. kcal needs, 100% est. pro needs) Expected Outcomes/Goals: To meet at least 75% estimated needs pressure ulcer & DTI to improve FU 2-3 days Date of Service: March 24, 2025 Billing Provider: LARISA RAM MD Common Visit Codes: [id number] CARE 30-74 MIN CLAUDIA SMITH RESIDENT March 24, 2025 21:29 LARISA RAM MD March 25, 2025 15:46
[2025-03-25] VITALS (110 sets, daily range): BP systolic 99–143; BP diastolic 42–77; PULSE 60–95; RESP 11–24; TEMP 98.8–100.2; O2SAT 92–100
[2025-03-25 05:24] LABS: Basophils # (auto) 0.1 10 ^3/uL (0-0.2); Eosinophils # (auto) 0.1 10 ^3/uL (0-0.8); Monocytes # (auto) 0.8 10 ^3/uL (0-1.3); Neutrophils # (auto) 7.3 10 ^3/uL (1.6-8.6); White Blood Cell 9.7 10^3/uL (4.4-10.8)
[2025-03-25 05:27] LABS: Basophils % (auto) 0.8 % (0.0-2.0); Eosinophils % (auto) 1.1 % (0.0-7.0); Hematocrit 29.2 % (36.0-46.0); Hemoglobin 9.4 g/dL (12.2-16.2); Lymphocytes # (auto) 1.4 10 ^3/uL (0.4-5.4); Lymphocytes % (auto) 14.3 % (10.0-50.0); Mean Corpuscular Hemoglobin 24.8 pg (28.0-32.0); Mean Corpuscular Hgb Conc. 32.1 g/dL (32.0-36.0); Mean Corpuscular Volume 77.1 fL (80.0-100.0); Monocytes % (auto) 8.7 % (0.0-12.0); Neutrophils % (auto) 75.1 % (37.0-80.0); Platelet Count (auto) 419 10^3/uL (140-450); Red Blood Cells 3.79 10^6/uL (4.0-5.20); Red Cell Distribution Width 17.8 % (11.8-14.3)
[2025-03-25 05:39] LABS: Anion Gap 10 (5-15); Carbon Dioxide 27 mmol/L (20-31); Chloride 103 mmol/L (98-107); Sodium 140 mmol/L (136-145)
[2025-03-25] MEDS: FUROSEMIDE 100 MG/10ML VIAL IV SCH ×2 (05:41→11:29)
[2025-03-25 05:45] LABS: BUN/Creatinine Ratio 19.5 (10.0-20.0); Calcium 8.2 mg/dL (8.7-10.4); Glucose 108 mg/dL (74-106); Magnesium 2.2 mg/dL (1.6-2.6); Potassium 3.2 mmol/L (3.5-5.1)
[2025-03-25 05:50] LABS: Blood Urea Nitrogen 23 mg/dL (9-23)
--- NOTE | 2025-03-25 06:24 | DVH ---
CHEST RADIOGRAPH Indication: on vent., pulm edema Technique: Single frontal view of the chest was obtained COMPARISON: XY CHEST PORTABLE on DOS: 03/24/25, XY CHEST XRAY 1 VIEW on DOS: 03/23/25, XY CHEST XRAY 1 EW on DOS: 03/22/25, XY CHEST XRAY 1 VIEW on DOS: 10/31/24, XY CHEST PORTABLE on DOS: 10/24/24 FINDINGS: Lines and Tubes: Unchanged. Lungs: Progressive interval decrease in bilateral consolidative pulmonary airspace disease predominat ing within the lung bases. The upper lung zones remain clear. Pleura: No effusion. No pneumothorax. Cardiomediastinal contours: Unremarkable Bones: Unremarkable IMPRESSION: 1. Progressive interval decrease in bilateral consolidative pulmonary airspace disease within the low er lung zones. 2. Lines and tubes unchanged.
[2025-03-25] MEDS ORDERED: SODIUM CHL 0.9% 100 ML IV ONE (06:45)
[2025-03-25] MEDS: POTASSIUM CHL 20MEQ/50ML 50 ML IV SCH (06:49)
[2025-03-25] MEDS: SODIUM CHL 0.9% 100 ML IV SCH (06:50)
[2025-03-25 07:32] LABS: Base Excess 0.8 mmol/L (-2.0-3.0)
--- NOTE | 2025-03-25 11:51 | MEDREC ---
[facility] Intervention Section I [facility] Intervention: Review courses of therapy (The final wound culture showed Coagulase Negative Staphylococcus and blood culture showed Staphylococcus epidermidis. Please review the Vancomycin use and redraw due to possible contamination in culture samples) IMELDA LAYTON March 25, 2025 11:51
--- NOTE | 2025-03-25 16:03 | DVHPNRES ---
Progress Note Date Seen: March 25, 2025 Resident Creating Document: KJ HERMOSILLO RESIDENT Medical Necessity Reason Pt with a Central, PICC or Fol: Yes The following are medically ne: Perrin Catheter Subjective Review of Systems Patient seen and examined at bedside Continue feeding via G-tube Sedated on mechanical ventilation, RASS minus two Urine output around 1.5 L till 4:00 p.m., has been given Lasix IV On low-dose Levophed to mics Failed CPAP trial, continue on a CBC mode. 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 Objective vital signs Vital Sign Date Time Temp Pulse Resp B/P (MAP) Pulse Ox O2 Delivery O2 Flow Rate FiO2 03/25/25 14:45 100.2 69 14 125/52 (76) 95 100.2 03/25/25 14:38 30 03/25/25 14:00 Mechanical Ventilator+ 03/23/25 20:00 2 Total Intake and Output 03/24/25 03/24/25 03/25/25 15:00 23:00 07:00 Intake Total 181.315 ml 196.24 ml 354.52 ml Output Total 650 ml 680 ml Balance 181.315 ml -453.76 ml -325.48 ml medications Current Medications Medications Dose Ordered Sig/Yesica Route Start Time Stop Time Status Last Admin Dose Admin Enoxaparin Sodium 40 mg DAILY SC 03/22/25 10:00 03/25/25 09:11 40 MG Vancomycin HCl 0 ml @ 0 mls/hr UD IV 03/22/25 03:45 Aspirin 81 mg DAILY PO 03/22/25 10:00 03/25/25 09:11 81 MG Clopidogrel Bisulfate 75 mg DAILY PO 03/22/25 10:00 03/25/25 09:11 75 MG Pantoprazole Sodium 40 mg DAILY IV 03/22/25 10:00 03/25/25 09:11 40 MG Ceftriaxone Sodium 50 ml @ 100 mls/hr DAILY@09 IV 03/23/25 09:00 03/25/25 09:11 100 MLS/HR Vancomycin HCl 200 ml @ 200 mls/hr DAILY IV 03/23/25 04:00 03/25/25 09:12 200 MLS/HR Diagnostic Test (Pha) 1 strip Q6HR 03/23/25 00:00 03/25/25 11:30 1 STRIP Insulin Human Regular Q6HR SC 03/23/25 00:00 03/25/25 11:30 2 UNITS Dextrose 50 ml UD PRN IV 03/22/25 19:45 Albuterol 2.5 mg Q6HR NEB 03/23/25 12:00 03/25/25 13:27 2.5 MG Ipratropium [place] 0.5 mg Q6HR NEB 03/23/25 12:00 03/25/25 13:27 0.5 MG Fentanyl Citrate 250 ml @ 2.5 mls/hr Q24H IV 03/23/25 13:00 03/25/25 02:32 10 MLS/HR Norepinephrine Bitartrate 250 ml @ 3.75 mls/hr Q24H IV 03/23/25 13:00 03/23/25 18:06 3.75 MLS/HR Propofol 100 ml @ 2.265 mls/ hr Q24H IV 03/23/25 18:30 03/25/25 05:42 4.53 MLS/HR Enteral Nutritional Formula 1,000 ml 30ML/HR GT 03/24/25 14:30 03/24/25 18:10 1,000 ML Furosemide 40 mg BIDD IV 03/25/25 09:45 03/25/25 11:29 40 MG Examination Constitutional: Sedated and on mechanical ventilation, RASS -3 Gen - mild conjunctival pallor, no icterus, no cyanosis, no clubbing, no LAD, no edema . Skin - Patients skin is warm and dry. HEENT - normocephalic, atraumatic, moist mucous membranes. Neck - full ROM, no LAD, jugular venous distention seen Pulmonary - B/L air entry with improved crackles, expiratory wheezing, no stridor. cardiovascular - variable S1,S2 heard, no added sounds, systolic murmur heard at the apex. capillary refill less than 3 seconds GI - soft abdomen. Bowel sounds normoactive Neurological - patient is sedated on mechanical ventilation, pupils equal and reactive, gag reflex present, bilateral plantar reflex downgoing laboratory and microbiology Laboratory Tests 03/25/25 05:00 Test 03/25/25 05:00 Range/Units Serum Glucose 108 H 74-106 mg/dL Microbiology Date/Time Source Procedure Growth Status 03/24/25 14:50 Blood Blood Culture - Preliminary NO GROWTH AFTER 24 HOURS OF INCUBATION. Resulted 03/23/25 13:05 Sputum Gram Stain - Final Resulted 03/23/25 13:05 Sputum Respiratory Culture - Preliminary Resulted 03/23/25 05:42 Nose MRSA Screen - Final Complete 03/22/25 09:57 Voided Urine Urine Culture - Final Complete Problem List/Assessment/Plan Problem List/Assessment/Plan Acute metabolic encephalopathy likely due to UTI - head CT shows no acute intracranial hemorrhage, small-vessel ischemic changes seen - on mechanical ventilation, minimal vent settings Respiratory Acute on chronic hypoxic respiratory failure COPD ? Exacerbation Pneumonia likely due to Gram +/- bacteria Pulmonary edema Small bilateral pleural effusions - on mechanical ventilation - IV Lasix 40 b.i.d., - nebs q.6 hours Cardiovascular Acute on chronic heart failure with reduced ejection fraction Ischemic cardiomyopathy Cardiomegaly Coronary artery disease s/p PCI with 4 ДМИТРИЙ Shock likely cardiogenic/septic - last echo in August 2024 shows LVEF 25% with anterior anteroseptal anteroapical wall akinesia - BNP elevated - diuresis - GDMT currently held because of the patient being in shock - on DAPT - vasopressor with norepinephrine - cardiology on board Infectious disease Septic shock likely due to pneumonia/UTI Sacral ulcer stage II - urine cultures show mixed teresa , blood cultures show staph epidermidis- repeat blood culture negative. - urinary bladder wall thickening seen on CT - IV antibiotics vancomycin and ceftriaxone Endocrinology Uncontrolled type 2 diabetes with hyperglycemia - HbA1c 11.5% - mild ISS GI History of SBO s/p exploratory laparotomy Currently no GI issues - started on diet with NG tube Hematology Microcytic hypochromic anemia ?Anemia of chronic disease DVT prophylaxis: Enoxaparin PUD prophylaxis: Protonix Right subclavian triple-lumen central venous catheter started on 03/23 Perrin's catheter was changed on 03/23 Patient intubated on 03/23 Goals of care discussed with the patient's daughter for over 26 minutes. Full code Critical care time spent excluding procedures: 74 minutes Patient was plan for CPAP trial, she was tachypneic, therefore CPAP trial was stopped, resumed on a.c./VC mode. Resume feeding. Blood culture negative. Continuing current antibiotic regimen. Pending other culture. Reduced dose of Lasix 40 mg IV b.i.d., significant urine output till 5:00 p.m.. 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 Continue monitor electrolyte. Plan for CPAP trial again tomorrow morning again. Plan discussed with Dr. Azevedo Plan discussed with: Other (RN) My Orders My Orders Orders - KJ HERMOSILLO RESIDENT Procedure Category Date Status Time Furosemide Injection PHA 03/25/25 In Process (Lasix Injection) 09:45 Cpap Trial For Am ORDERS 03/25/25 Transmitted 11:37 Dietary Evaluation Review Comments: Nutrition Recommendation: 1. TF Pivot 1.5 @ 45 ml/hr x 24 hr (GOAL) along with Pro-stat 1 pk daily. Begin @ 10 ml/hr; advance by 10 ml Q4 hrs or as tolerated to 45 ml/hr x 24 hrs 2. Provide free water flushes of 30 ml Q6 hrs (120 ml total); adjust PRN 3. Syd 1 pk BID, Vit C 500mg BID, Zinc sulfate 220 mb BID x 10 days, MVI w minerals 1 tab daily 4. Monitor BMP/lytes and replete to WNL/PRN TF Provision: TF at goal to provide 1080 ml total volume, 1620 kcal (+Pro-stat 100 kcal = 1720 kcal), 101 gm pro (+15gm prostat = 116gm), 820 ml H20 (meets 100% est. kcal needs, 100% est. pro needs) Expected Outcomes/Goals: To meet at least 75% estimated needs pressure ulcer & DTI to improve FU 2-3 days Date of Service: March 25, 2025 Billing Provider: LARISA AZEVEDO MD Common Visit Codes: [id number] CARE 30-74 MIN KJ HERMOSILLO March 25, 2025 16:03 LARISA AZEVEDO MD March 27, 2025 14:09
[2025-03-26] VITALS (109 sets, daily range): BP systolic 98–159; BP diastolic 38–76; PULSE 60–101; RESP 13–26; TEMP 96–99.9; O2SAT 89–100
[2025-03-26 05:26] LABS: Basophils # (auto) 0 10 ^3/uL (0-0.2); Basophils % (auto) 0.3 % (0.0-2.0); Eosinophils # (auto) 0.1 10 ^3/uL (0-0.8); Eosinophils % (auto) 1.3 % (0.0-7.0); Monocytes # (auto) 0.7 10 ^3/uL (0-1.3); Neutrophils # (auto) 7.1 10 ^3/uL (1.6-8.6); White Blood Cell 9.1 10^3/uL (4.4-10.8)
[2025-03-26 05:29] LABS: Hematocrit 29.9 % (36.0-46.0); Hemoglobin 9.7 g/dL (12.2-16.2); Lymphocytes # (auto) 1.2 10 ^3/uL (0.4-5.4); Lymphocytes % (auto) 12.9 % (10.0-50.0); Mean Corpuscular Hemoglobin 24.9 pg (28.0-32.0); Mean Corpuscular Hgb Conc. 32.4 g/dL (32.0-36.0); Mean Corpuscular Volume 76.7 fL (80.0-100.0); Monocytes % (auto) 7.8 % (0.0-12.0); Neutrophils % (auto) 77.7 % (37.0-80.0); Nucleated Red Blood Cells % 0.1 %; Platelet Count (auto) 407 10^3/uL (140-450); Red Cell Distribution Width 17.3 % (11.8-14.3)
[2025-03-26 05:55] LABS: Anion Gap 10 (5-15)
[2025-03-26 05:56] LABS: Calcium 9.3 mg/dL (8.7-10.4)
[2025-03-26 05:58] LABS: Carbon Dioxide 28 mmol/L (20-31); Chloride 103 mmol/L (98-107); Potassium 3.4 mmol/L (3.5-5.1); Sodium 141 mmol/L (136-145)
[2025-03-26 06:00] LABS: BUN/Creatinine Ratio 18.7 (10.0-20.0); Blood Urea Nitrogen 20 mg/dL (9-23)
[2025-03-26 06:01] LABS: Glucose 162 mg/dL (74-106); Magnesium 2.1 mg/dL (1.6-2.6)
--- NOTE | 2025-03-26 06:53 | DVH ---
CHEST RADIOGRAPH Indication: on vent Technique: Single frontal view of the chest was obtained Comparison: XY CHEST XRAY 1 VIEW on DOS: 03/25/25, XY CHEST PORTABLE on DOS: 03/24/25, XY CHEST XRAY 1 V IEW on DOS: 03/23/25, XY CHEST XRAY 1 VIEW on DOS: 03/22/25, XY CHEST XRAY 1 VIEW on DOS: 10/31/24, XY CH EST XRAY 1 VIEW on DOS: 03/25/25 FINDINGS: Lines and Tubes: Unchanged. Lungs: Progressive interval decrease in bilateral consolidative pulmonary airspace disease predominat ing within the lung bases. The upper lung zones remain clear. Pleura: No effusion. No pneumothorax. Cardiomediastinal contours: Unremarkable Bones: Unremarkable IMPRESSION: 1. Progressive interval decrease in bilateral consolidative pulmonary airspace disease within the low er lung zones. 2. Lines and tubes unchanged.
[2025-03-26 07:48] LABS: Base Excess 4.9 mmol/L (-2.0-3.0)
[2025-03-26] MEDS: POTASSIUM CHL 20MEQ/50ML 50 ML IV SCH (09:04)
[2025-03-26] MEDS: DEXMEDETOMIDINE HCL IN D5W 100 ML IV SCH (10:30)
[2025-03-26] MEDS: FUROSEMIDE 40 MG/4 ML VIAL IV ONE (12:49)
[2025-03-26] MEDS: methylPREDNISolone SOD SUCC 40 MG/ML VL IV ONE (12:50)
--- NOTE | 2025-03-26 17:41 | DVHPNRES ---
Progress Note Date Seen: March 26, 2025 Resident Creating Document: CLAUDIA SMITH RESIDENT Medical Necessity Reason Pt with a Central, PICC or Fol: Yes The following are medically ne: Perrin Catheter Subjective Review of Systems Patient seen and examined at the bedside Patient was off sedation, agitated and was started on Precedex for a CPAP trial chest x ray reviewed shows improved lung rascon with less congestion patient could not be put on CPAP trial because she was agitated and not awake net negative fluid balance of -1.8L ABG- showed mixed respiratory acidosis and metabolic alkalosis Objective vital signs Vital Sign Date Time Temp Pulse Resp B/P (MAP) Pulse Ox O2 Delivery O2 Flow Rate FiO2 03/26/25 16:54 60 22 103/47 (65) 98 30 03/26/25 16:00 Mechanical Ventilator+ 03/26/25 12:00 96.0 96.0 Total Intake and Output 03/25/25 03/25/25 03/26/25 15:00 23:00 07:00 Intake Total 417.180 ml 446.24 ml 458.27 ml Output Total 2300 ml 750 ml Balance 417.180 ml -1853.76 ml -291.73 ml medications Current Medications Medications Dose Ordered Sig/Yesica Route Start Time Stop Time Status Last Admin Dose Admin Enoxaparin Sodium 40 mg DAILY SC 03/22/25 10:00 03/26/25 09:06 40 MG Vancomycin HCl 0 ml @ 0 mls/hr UD IV 03/22/25 03:45 Aspirin 81 mg DAILY PO 03/22/25 10:00 03/26/25 09:05 81 MG Clopidogrel Bisulfate 75 mg DAILY PO 03/22/25 10:00 03/26/25 09:05 75 MG Pantoprazole Sodium 40 mg DAILY IV 03/22/25 10:00 03/26/25 09:04 40 MG Ceftriaxone Sodium 50 ml @ 100 mls/hr DAILY@09 IV 03/23/25 09:00 03/26/25 07:44 100 MLS/HR Vancomycin HCl 200 ml @ 200 mls/hr DAILY IV 03/23/25 04:00 03/26/25 09:02 200 MLS/HR Diagnostic Test (Pha) 1 strip Q6HR 03/23/25 00:00 03/26/25 12:00 1 STRIP Insulin Human Regular Q6HR SC 03/23/25 00:00 03/26/25 11:33 2 UNITS Dextrose 50 ml UD PRN IV 03/22/25 19:45 Albuterol 2.5 mg Q6HR NEB 03/23/25 12:00 03/26/25 13:41 2.5 MG Ipratropium [place] 0.5 mg Q6HR NEB 03/23/25 12:00 03/26/25 13:41 0.5 MG Fentanyl Citrate 250 ml @ 2.5 mls/hr Q24H IV 03/23/25 13:00 03/26/25 03:40 7.5 MLS/HR Norepinephrine Bitartrate 250 ml @ 3.75 mls/hr Q24H IV 03/23/25 13:00 03/25/25 17:12 3.75 MLS/HR Propofol 100 ml @ 2.265 mls/ hr Q24H IV 03/23/25 18:30 03/26/25 04:57 4.53 MLS/HR Enteral Nutritional Formula 1,000 ml 30ML/HR GT 03/24/25 14:30 03/24/25 18:10 1,000 ML Acetaminophen 650 mg Q6HP PRN GT 03/25/25 18:45 Furosemide 80 mg BIDD IV 03/26/25 18:00 Methylprednisolone Sodium Succinate 20 mg BID IV 03/27/25 10:00 Examination Constitutional: Sedated and on mechanical ventilation, RASS -3 Gen - mild conjunctival pallor, no icterus, no cyanosis, no clubbing, no LAD, no edema . Skin - Patients skin is warm and dry. HEENT - normocephalic, atraumatic, moist mucous membranes. Neck - full ROM, no LAD, jugular venous distention seen Pulmonary - B/L air entry with improved crackles, expiratory wheezing, no stridor. cardiovascular - variable S1,S2 heard, no added sounds, systolic murmur heard at the apex. capillary refill less than 3 seconds GI - soft abdomen. Bowel sounds normoactive Neurological - patient is sedated on mechanical ventilation, pupils equal and reactive, gag reflex present, bilateral plantar reflex downgoing laboratory and microbiology Laboratory Tests 03/26/25 05:10 Test 03/26/25 05:10 Range/Units Serum Glucose 162 H 74-106 mg/dL Microbiology Date/Time Source Procedure Growth Status 03/24/25 14:50 Blood Blood Culture - Preliminary NO GROWTH AFTER 48 HOURS OF INCUBATION. Resulted 03/23/25 13:05 Sputum Gram Stain - Final Complete 03/23/25 13:05 Sputum Respiratory Culture - Final Complete 03/23/25 05:42 Nose MRSA Screen - Final Complete 03/22/25 09:57 Voided Urine Urine Culture - Final Complete Problem List/Assessment/Plan Problem List/Assessment/Plan Neurology Acute metabolic encephalopathy likely due to UTI - head CT shows no acute intracranial hemorrhage, small-vessel ischemic changes seen - on mechanical ventilation, minimal vent settings Respiratory Acute on chronic hypoxic respiratory failure COPD ? Exacerbation Pneumonia likely due to Gram +/- bacteria Pulmonary edema Small bilateral pleural effusions - on mechanical ventilation - IV Lasix - nebs q.6 hours Cardiovascular Acute on chronic heart failure with reduced ejection fraction Ischemic cardiomyopathy Cardiomegaly Coronary artery disease s/p PCI with 4 ДМИТРИЙ Shock likely cardiogenic/septic - last echo in August 2024 shows LVEF 25% with anterior anteroseptal anteroapical wall akinesia - BNP elevated - diuresis - GDMT currently held because of the patient being in shock - on DAPT - vasopressor if required - cardiology on board Infectious disease Septic shock likely due to pneumonia/UTI Sacral ulcer stage II - urine cultures show mixed teresa , blood cultures show staph epidermidis- repeat cultures negative, sputum, wound culture pending - urinary bladder wall thickening seen on CT - IV antibiotics vancomycin and ceftriaxone Endocrinology Uncontrolled type 2 diabetes with hyperglycemia - HbA1c 11.5% - mild ISS GI History of SBO s/p exploratory laparotomy Currently no GI issues - started on diet with NG tube Hematology Microcytic hypochromic anemia ?Anemia of chronic disease DVT prophylaxis: Enoxaparin PUD prophylaxis: Protonix Right subclavian triple-lumen central venous catheter started on 03/23 Perrin's catheter was changed on 03/23 Patient intubated on 03/23 Patient could not be put on CPAP trial because she was agitated and sedated and could not be awake to follow commands. Goals of care discussed with the patient's daughter for over 23 minutes. Full code Critical care time spent excluding procedures: 71 minutes Plan discussed with Dr. Ram Plan discussed with: Other (RN (Eli)) My Orders My Orders Orders - CLAUDIA SMITH RESIDENT Procedure Category Date Status Time Dexmedetomidine Hcl PHA 03/26/25 In Process In D5w (Precedex) 10:30 Furosemide Injection PHA 03/26/25 In Process (Lasix Injection) 18:00 Methylprednisolone PHA 03/27/25 In Process Sod Succ (Solu Medrol 10:00 Basic Metabolic Panel LAB 03/27/25 Verified 04:00 Complete Blood Count LAB 03/27/25 Verified 04:00 Magnesium LAB 03/27/25 Verified 04:00 Chest Xray 1 View XY 03/27/25 Logged 04:00 Abg W/ Co-Ox RT 03/27/25 Logged 04:00 Dietary Evaluation Review Comments: Nutrition Recommendation: 1. TF Pivot 1.5 @ 45 ml/hr x 24 hr (GOAL) along with Pro-stat 1 pk daily. Begin @ 10 ml/hr; advance by 10 ml Q4 hrs or as tolerated to 45 ml/hr x 24 hrs 2. Provide free water flushes of 30 ml Q6 hrs (120 ml total); adjust PRN 3. Syd 1 pk BID, Vit C 500mg BID, Zinc sulfate 220 mb BID x 10 days, MVI w minerals 1 tab daily 4. Monitor BMP/lytes and replete to WNL/PRN TF Provision: TF at goal to provide 1080 ml total volume, 1620 kcal (+Pro-stat 100 kcal = 1720 kcal), 101 gm pro (+15gm prostat = 116gm), 820 ml H20 (meets 100% est. kcal needs, 100% est. pro needs) Expected Outcomes/Goals: To meet at least 75% estimated needs pressure ulcer & DTI to improve FU 2-3 days Date of Service: March 26, 2025 Billing Provider: LARISA RAM MD Common Visit Codes: [id number] CARE 30-74 MIN CLAUDIA SMITH RESIDENT March 26, 2025 17:41 LARISA RAM MD March 27, 2025 14:17
[2025-03-26] MEDS: FUROSEMIDE 100 MG/10ML VIAL IV SCH (17:44)
[2025-03-27] VITALS (106 sets, daily range): BP systolic 88–164; BP diastolic 36–80; PULSE 60–106; RESP 10–26; TEMP 98.8–100.4; O2SAT 89–100
--- NOTE | 2025-03-27 05:11 | DVH ---
CHEST RADIOGRAPH Indication: on vent, b/l pulm edema Technique: Single frontal view of the chest was obtained COMPARISON: XY CHEST XRAY 1 VIEW on DOS: 03/26/25, XY CHEST XRAY 1 VIEW on DOS: 03/25/25, XY CHEST PORT ABLE on DOS: 03/24/25, XY CHEST XRAY 1 VIEW on DOS: 03/23/25, XY CHEST XRAY 1 VIEW on DOS: 03/22/25 FINDINGS: Lines and Tubes: Endotracheal tube, enteric catheter in satisfactory position. Left chest wall pacem jeramy. Lungs: Multifocal airspace disease. Pleura: No effusion. No pneumothorax. Cardiomediastinal contours: Unremarkable Bones: Unremarkable IMPRESSION: Lines and tubes in satisfactory position. No significant interval change.
[2025-03-27 05:54] LABS: Basophils # (auto) 0 10 ^3/uL (0-0.2); Basophils % (auto) 0.1 % (0.0-2.0); Eosinophils # (auto) 0 10 ^3/uL (0-0.8); Hemoglobin 9.4 g/dL (12.2-16.2); Monocytes # (auto) 0.5 10 ^3/uL (0-1.3)
[2025-03-27 05:57] LABS: Hematocrit 29.3 % (36.0-46.0); Lymphocytes # (auto) 1.2 10 ^3/uL (0.4-5.4); Lymphocytes % (auto) 13.4 % (10.0-50.0); Mean Corpuscular Hemoglobin 24.3 pg (28.0-32.0); Mean Corpuscular Hgb Conc. 31.9 g/dL (32.0-36.0); Mean Corpuscular Volume 76.3 fL (80.0-100.0); Neutrophils % (auto) 80.5 % (37.0-80.0); Platelet Count (auto) 368 10^3/uL (140-450); Red Blood Cells 3.84 10^6/uL (4.0-5.20); Red Cell Distribution Width 17.4 % (11.8-14.3); White Blood Cell 8.6 10^3/uL (4.4-10.8)
[2025-03-27 06:02] LABS: Chloride 104 mmol/L (98-107); Sodium 144 mmol/L (136-145)
[2025-03-27 06:03] LABS: Anion Gap 10 (5-15); Calcium 9.7 mg/dL (8.7-10.4); Carbon Dioxide 30 mmol/L (20-31)
[2025-03-27 06:09] LABS: Magnesium 2.3 mg/dL (1.6-2.6)
[2025-03-27 06:10] LABS: Blood Urea Nitrogen 24 mg/dL (9-23); Glucose 118 mg/dL (74-106)
[2025-03-27 06:48] LABS: Base Excess 3.2 mmol/L (-2.0-3.0)
[2025-03-27] MEDS: methylPREDNISolone SOD SUCC 40 MG/ML VL IV SCH (09:09)
[2025-03-27] MEDS: FUROSEMIDE 40 MG/4 ML VIAL IV ONE (09:38)
--- NOTE | 2025-03-27 10:49 | DVHSR ---
APPROVED REPORT EXAM: Two-dimensional and M-mode echocardiogram with Doppler and color Doppler. Blood Pressure: 136/64 mmHg INDICATION Heart Failure Surgery/Intervention Pacemaker: RISK FACTORS Height: 5'6, Weight: 166 DIMENSIONS LVDd5.6 (3.8-5.7cm)LA (2D)4.3 (1.9-4.0cm)Aortic Root3.1 (2.0-3.7cm) LVDs4.4 (2.5-4.0cm)LA (MM) (1.9-4.0cm)Aortic Cusp Exc1.4 (1.5-2.0cm) EF (%) 25.0 (55-70%)Rt. Atrium4.0 (1.9-4.0cm)Asc. Aorta3.6 cm IVSd0.9 (0.7-1.1cm)RV (D)4.3 (1.8-2.4cm) PWd1.0 (0.7-1.1cm) Mitral Valve MitralMitral Stenosis E wavem/sMV Mean GR.4mmHg A wavem/sMV Peak GR.115mmHg E/A ratio0.02D MVAcm2 Aortic Valve Aortic ValveAortic Stenosis V10.86m/Adrienne Mean GR.3mmHg V21.17m/Adrienne Peak GR.5mmHg LVOT Diameter2.1 (1.8-2.4cm)Doppler AVA2.54cm2 AI P 1/2 Feuz228.35ms Pulmonic Valve V20.88m/s Tricuspid Valve TR Velocity3.52m/s [id number] Conclusion lvef 20% by visual estimate dilated LV anteroseptum is akinetic RV dysfuniton biatrial enlargement moderate to severe aortic regurg severe mitral regurg moderate to severe tricuspid regurg
[2025-03-27] MEDS: ACETAMINOPHEN 650 mg PER 20.3 mL UD GT PRN (11:21)
--- NOTE | 2025-03-27 12:35 | DVHPN2 ---
Progress Note Date Seen: March 27, 2025 Medical Necessity Reason Pt with a Central, PICC or Fol: Yes The following are medically ne: Perrin Catheter Subjective Other Systems: diuresed well cpap trial today Objective vital signs Vital Sign Date Time Temp Pulse Resp B/P (MAP) Pulse Ox O2 Delivery O2 Flow Rate FiO2 03/27/25 11:53 90 15 147/68 (94) 92 30 03/27/25 11:21 100.4 03/27/25 10:00 Mechanical Ventilator+ Total Intake and Output 03/26/25 03/26/25 03/27/25 15:00 23:00 07:00 Intake Total 387.915 ml 266.59 ml 283.5 ml Output Total 1405 ml 800 ml Balance 387.915 ml -1138.41 ml -516.5 ml medications Current Medications Medications Dose Ordered Sig/Yesica Route Start Time Stop Time Status Last Admin Dose Admin Enoxaparin Sodium 40 mg DAILY SC 03/22/25 10:00 03/27/25 09:08 40 MG Vancomycin HCl 0 ml @ 0 mls/hr UD IV 03/22/25 03:45 Aspirin 81 mg DAILY PO 03/22/25 10:00 03/27/25 09:09 81 MG Clopidogrel Bisulfate 75 mg DAILY PO 03/22/25 10:00 03/27/25 09:09 75 MG Pantoprazole Sodium 40 mg DAILY IV 03/22/25 10:00 03/27/25 09:08 40 MG Ceftriaxone Sodium 50 ml @ 100 mls/hr DAILY@09 IV 03/23/25 09:00 03/27/25 09:08 100 MLS/HR Vancomycin HCl 200 ml @ 200 mls/hr DAILY IV 03/23/25 04:00 03/27/25 12:59 03/27/25 10:44 200 MLS/HR Diagnostic Test (Pha) 1 strip Q6HR 03/23/25 00:00 03/27/25 11:46 1 STRIP Insulin Human Regular Q6HR SC 03/23/25 00:00 03/27/25 11:46 4 UNITS Dextrose 50 ml UD PRN IV 03/22/25 19:45 Albuterol 2.5 mg Q6HR NEB 03/23/25 12:00 03/27/25 11:53 2.5 MG Ipratropium [place] 0.5 mg Q6HR NEB 03/23/25 12:00 03/27/25 11:53 0.5 MG Fentanyl Citrate 250 ml @ 2.5 mls/hr Q24H IV 03/23/25 13:00 03/27/25 04:54 10 MLS/HR Norepinephrine Bitartrate 250 ml @ 3.75 mls/hr Q24H IV 03/23/25 13:00 03/25/25 17:12 3.75 MLS/HR Propofol 100 ml @ 2.265 mls/ hr Q24H IV 03/23/25 18:30 03/27/25 04:53 4.53 MLS/HR Enteral Nutritional Formula 1,000 ml 30ML/HR GT 03/24/25 14:30 03/24/25 18:10 1,000 ML Acetaminophen 650 mg Q6HP PRN GT 03/25/25 18:45 03/27/25 11:21 650 MG Furosemide 80 mg BIDD IV 03/26/25 18:00 03/27/25 06:01 80 MG Methylprednisolone Sodium Succinate 20 mg BID IV 03/27/25 10:00 03/27/25 09:09 20 MG Vancomycin HCl 100 ml @ 100 mls/hr DAILY IV 03/28/25 10:00 Examination: GENERAL:Abnormal, HEENT:Abnormal, LUNGS:Abnormal, CVS:Abnormal, ABDOMEN:Abnormal laboratory and microbiology Laboratory Tests 03/27/25 05:04 Test 03/27/25 05:04 Range/Units Serum Glucose 118 H 74-106 mg/dL Microbiology Date/Time Source Procedure Growth Status 03/24/25 14:50 Blood Blood Culture - Preliminary NO GROWTH AFTER 48 HOURS OF INCUBATION. Resulted 03/23/25 13:05 Sputum Gram Stain - Final Complete 03/23/25 13:05 Sputum Respiratory Culture - Final Complete 03/23/25 05:42 Nose MRSA Screen - Final Complete 03/22/25 09:57 Voided Urine Urine Culture - Final Complete Problem List/Assessment/Plan Problem List/Assessment/Plan severe ICM severe valve disease/ chronic resp failure non ambulatory ckd HTN HL cont lasix cpap trial, extubate when feasible cont dapt cont GDMT, hf meds poor prognosis Plan discussed with: Other (rn) Dietary Evaluation Review Comments: Nutrition Recommendation: 1. TF Pivot 1.5 @ 45 ml/hr x 24 hr (GOAL) along with Pro-stat 1 pk daily. Begin @ 10 ml/hr; advance by 10 ml Q4 hrs or as tolerated to 45 ml/hr x 24 hrs 2. Provide free water flushes of 30 ml Q6 hrs (120 ml total); adjust PRN 3. Syd 1 pk BID, Vit C 500mg BID, Zinc sulfate 220 mb BID x 10 days, MVI w minerals 1 tab daily 4. Monitor BMP/lytes and replete to WNL/PRN TF Provision: TF at goal to provide 1080 ml total volume, 1620 kcal (+Pro-stat 100 kcal = 1720 kcal), 101 gm pro (+15gm prostat = 116gm), 820 ml H20 (meets 100% est. kcal needs, 100% est. pro needs) Expected Outcomes/Goals: To meet at least 75% estimated needs pressure ulcer & DTI to improve FU 2-3 days Date of Service: March 27, 2025 Billing Provider: KOLTON RAMOS MD Common Visit Codes: NOT BILLABLE KOLTON RAMOS MD March 27, 2025 12:34
[2025-03-27] MEDS: LOSARTAN POTASSIUM 50 MG TAB PO ONE (13:44)
--- NOTE | 2025-03-27 16:52 | DVHPNRES ---
Progress Note Date Seen: March 27, 2025 Resident Creating Document: CLAUDIA SMITH RESIDENT Medical Necessity Reason Pt with a Central, PICC or Fol: Yes The following are medically ne: Perrin Catheter Subjective Review of Systems Patient seen and examined at the bedside Patient was off sedation, and put on spontaneous breathing for 2 hours chest x ray reviewed shows improved lung rascon with less congestion patient could not be put on CPAP trial because she was not awake enough and not following commands net negative fluid balance of -1260ml over last 24 hrs, cummulative balance since the patient has been here -3800ml ABG- compensated Objective vital signs Vital Sign Date Time Temp Pulse Resp B/P (MAP) Pulse Ox O2 Delivery O2 Flow Rate FiO2 03/27/25 15:59 76 25 122/49 (73) 97 35 03/27/25 14:00 Mechanical Ventilator+ 03/27/25 13:30 99.5 99.5 Total Intake and Output 03/26/25 03/26/25 03/27/25 15:00 23:00 07:00 Intake Total 387.915 ml 266.59 ml 283.5 ml Output Total 1405 ml 800 ml Balance 387.915 ml -1138.41 ml -516.5 ml medications Current Medications Medications Dose Ordered Sig/Yesica Route Start Time Stop Time Status Last Admin Dose Admin Enoxaparin Sodium 40 mg DAILY SC 03/22/25 10:00 03/27/25 09:08 40 MG Vancomycin HCl 0 ml @ 0 mls/hr UD IV 03/22/25 03:45 Aspirin 81 mg DAILY PO 03/22/25 10:00 03/27/25 09:09 81 MG Clopidogrel Bisulfate 75 mg DAILY PO 03/22/25 10:00 03/27/25 09:09 75 MG Pantoprazole Sodium 40 mg DAILY IV 03/22/25 10:00 03/27/25 09:08 40 MG Ceftriaxone Sodium 50 ml @ 100 mls/hr DAILY@09 IV 03/23/25 09:00 03/27/25 09:08 100 MLS/HR Diagnostic Test (Pha) 1 strip Q6HR 03/23/25 00:00 03/27/25 11:46 1 STRIP Insulin Human Regular Q6HR SC 03/23/25 00:00 03/27/25 11:46 4 UNITS Dextrose 50 ml UD PRN IV 03/22/25 19:45 Albuterol 2.5 mg Q6HR NEB 03/23/25 12:00 03/27/25 11:53 2.5 MG Ipratropium [place] 0.5 mg Q6HR NEB 03/23/25 12:00 03/27/25 11:53 0.5 MG Fentanyl Citrate 250 ml @ 2.5 mls/hr Q24H IV 03/23/25 13:00 03/27/25 04:54 10 MLS/HR Norepinephrine Bitartrate 250 ml @ 3.75 mls/hr Q24H IV 03/23/25 13:00 03/25/25 17:12 3.75 MLS/HR Propofol 100 ml @ 2.265 mls/ hr Q24H IV 03/23/25 18:30 03/27/25 04:53 4.53 MLS/HR Enteral Nutritional Formula 1,000 ml 30ML/HR GT 03/24/25 14:30 03/24/25 18:10 1,000 ML Acetaminophen 650 mg Q6HP PRN GT 03/25/25 18:45 03/27/25 11:21 650 MG Furosemide 80 mg BIDD IV 03/26/25 18:00 03/27/25 06:01 80 MG Methylprednisolone Sodium Succinate 20 mg BID IV 03/27/25 10:00 03/27/25 09:09 20 MG Vancomycin HCl 100 ml @ 100 mls/hr DAILY IV 03/28/25 10:00 Examination Constitutional: Sedated and on mechanical ventilation, RASS -3 Gen - mild conjunctival pallor, no icterus, no cyanosis, no clubbing, no LAD, no edema . Skin - Patients skin is warm and dry. HEENT - normocephalic, atraumatic, moist mucous membranes. Neck - full ROM, no LAD, jugular venous distention seen Pulmonary - B/L air entry with improved crackles, expiratory wheezing, no stridor. cardiovascular - variable S1,S2 heard, no added sounds, systolic murmur heard at the apex. capillary refill less than 2 seconds GI - soft abdomen. Bowel sounds normoactive Neurological - patient is sedated on mechanical ventilation, pupils equal and reactive, gag reflex present, bilateral plantar reflex downgoing laboratory and microbiology Laboratory Tests 03/27/25 05:04 Test 03/27/25 05:04 Range/Units Serum Glucose 118 H 74-106 mg/dL Microbiology Date/Time Source Procedure Growth Status 03/24/25 14:50 Blood Blood Culture - Preliminary NO GROWTH AFTER 72 HOURS OF INCUBATION. Resulted 03/23/25 13:05 Sputum Gram Stain - Final Complete 03/23/25 13:05 Sputum Respiratory Culture - Final Complete 03/23/25 05:42 Nose MRSA Screen - Final Complete 03/22/25 09:57 Voided Urine Urine Culture - Final Complete Problem List/Assessment/Plan Problem List/Assessment/Plan Neurology Acute metabolic encephalopathy likely due to UTI - head CT shows no acute intracranial hemorrhage, small-vessel ischemic changes seen - on mechanical ventilation, minimal vent settings Respiratory Acute on chronic hypoxic respiratory failure COPD ? Exacerbation Pneumonia likely due to Gram +/- bacteria Pulmonary edema Small bilateral pleural effusions - on mechanical ventilation - IV Lasix - nebs q.6 hours Cardiovascular Acute on chronic heart failure with reduced ejection fraction Ischemic cardiomyopathy Cardiomegaly Coronary artery disease s/p PCI with 4 ДМИТРИЙ Shock likely cardiogenic/septic - echo in August 2024 shows LVEF 25% with anterior anteroseptal anteroapical wall akinesia - new echo done on 03/27/2025 showed LVEF 20 % with the visual estimate, dilated LV, akinetic anteroseptal, RV dysfunction, biatrial enlargement [id number] aortic regurg, severe mitral regurg, [id number] tricuspid regurg - BNP elevated - diuresis - GDMT - started on losartan - on DAPT - vasopressor if required - cardiology on board Infectious disease Septic shock likely due to pneumonia/UTI Sacral ulcer stage II - urine cultures show mixed teresa , blood cultures show staph epidermidis- repeat cultures negative, sputum, wound culture pending - urinary bladder wall thickening seen on CT - IV antibiotics vancomycin and ceftriaxone Endocrinology Uncontrolled type 2 diabetes with hyperglycemia - HbA1c 11.5% - mild ISS GI History of SBO s/p exploratory laparotomy Currently no GI issues - started on diet with NG tube Hematology Microcytic hypochromic anemia ?Anemia of chronic disease - monitoring H&H DVT prophylaxis: Enoxaparin PUD prophylaxis: Protonix Right subclavian triple-lumen central venous catheter started on 03/23 Perrin's catheter was changed on 03/23 Patient intubated on 03/23 Patient could not be put on CPAP trial because she was not awake enough to follow commands. Goals of care discussed with the patient's daughter Yue for over 23 minutes. Full code Critical care time spent excluding procedures: 69 minutes Plan discussed with Dr. Ram Plan discussed with: Daughter, Other (RN ( Sharee Marsh )) Dietary Evaluation Review Comments: Nutrition Recommendation: 1. TF Pivot 1.5 @ 45 ml/hr x 24 hr (GOAL) along with Pro-stat 1 pk daily. Begin @ 10 ml/hr; advance by 10 ml Q4 hrs or as tolerated to 45 ml/hr x 24 hrs 2. Provide free water flushes of 30 ml Q6 hrs (120 ml total); adjust PRN 3. Syd 1 pk BID, Vit C 500mg BID, Zinc sulfate 220 mb BID x 10 days, MVI w minerals 1 tab daily 4. Monitor BMP/lytes and replete to WNL/PRN TF Provision: TF at goal to provide 1080 ml total volume, 1620 kcal (+Pro-stat 100 kcal = 1720 kcal), 101 gm pro (+15gm prostat = 116gm), 820 ml H20 (meets 100% est. kcal needs, 100% est. pro needs) Expected Outcomes/Goals: To meet at least 75% estimated needs pressure ulcer & DTI to improve FU 2-3 days Date of Service: March 27, 2025 Billing Provider: LARISA RAM MD Common Visit Codes: [id number] CARE 30-74 MIN CLAUDIA SMITH RESIDENT March 27, 2025 16:52 LARISA RAM MD March 31, 2025 10:23
[2025-03-28] VITALS (109 sets, daily range): BP systolic 69–184; BP diastolic 36–127; PULSE 60–123; RESP 12–32; TEMP 97–100.4; O2SAT 89–100
[2025-03-28 06:46] LABS: Basophils # (auto) 0 10 ^3/uL (0-0.2); Eosinophils # (auto) 0 10 ^3/uL (0-0.8); Hematocrit 28.6 % (36.0-46.0); Hemoglobin 9.1 g/dL (12.2-16.2); Lymphocytes # (auto) 0.4 10 ^3/uL (0.4-5.4); Mean Corpuscular Hemoglobin 24.2 pg (28.0-32.0); Mean Corpuscular Hgb Conc. 31.9 g/dL (32.0-36.0); Mean Corpuscular Volume 75.9 fL (80.0-100.0); Monocytes # (auto) 0.2 10 ^3/uL (0-1.3); Monocytes % (auto) 2.7 % (0.0-12.0); Neutrophils # (auto) 6.7 10 ^3/uL (1.6-8.6); Neutrophils % (auto) 91.3 % (37.0-80.0); Platelet Count (auto) 365 10^3/uL (140-450); Red Blood Cells 3.77 10^6/uL (4.0-5.20); Red Cell Distribution Width 17.5 % (11.8-14.3); White Blood Cell 7.4 10^3/uL (4.4-10.8)
[2025-03-28 06:55] LABS: Base Excess 0.1 mmol/L (-2.0-3.0)
[2025-03-28 06:58] LABS: Anion Gap 12 (5-15); Calcium 9.1 mg/dL (8.7-10.4); Carbon Dioxide 30 mmol/L (20-31); Chloride 101 mmol/L (98-107); Sodium 143 mmol/L (136-145)
[2025-03-28 07:04] LABS: BUN/Creatinine Ratio 24.1 (10.0-20.0); Magnesium 2.2 mg/dL (1.6-2.6)
[2025-03-28 07:06] LABS: Blood Urea Nitrogen 26 mg/dL (9-23); Glucose 234 mg/dL (74-106); Potassium 3.2 mmol/L (3.5-5.1)
--- NOTE | 2025-03-28 09:16 | DVH ---
EXAM: XY CHEST XRAY 1 VIEW Indication: on vent., position of ETT, b/l pulm edema Technique: Single frontal view of the chest was obtained Comparison: XY CHEST XRAY 1 VIEW on DOS: 03/27/25, XY CHEST XRAY 1 VIEW on DOS: 03/26/25, XY CHEST XRAY 1 VIEW on DOS: 03/25/25, XY CHEST PORTABLE on DOS: 03/24/25, XY CHEST XRAY 1 VIEW on DOS: 03/23/25 FINDINGS: Lines and Tubes: Endotracheal tube projects 4.3 cm above the concha. Cardiac pacemaker projects over left chest wall. Enteric tube is in appropriate position. Lungs: Multifocal airspace consolidative opacities. Pleura: No effusion. No pneumothorax. Cardiomediastinal contours: Unchanged. Bones: No acute osseous abnormality. IMPRESSION: No significant change compared to prior exam.
[2025-03-28] MEDS: POTASSIUM CHL 20MEQ/100ML 100 ML IV SCH (09:17)
[2025-03-28] MEDS: FUROSEMIDE 40 MG/4 ML VIAL IV ONE (09:17)
[2025-03-28] MEDS: VANCOMYCIN 750MG KIT 100 ML IV SCH (10:48)
[2025-03-28] MEDS: PIPERACILLIN-TAZOB 3.375GM 100 ML IV ONE (11:35)
--- NOTE | 2025-03-28 12:21 | DVH ---
EXAM: CT HEAD WITHOUT CONTRAST INDICATION: neuro changes TECHNIQUE: CT of the head without intravenous contrast. Coronal and sagittal reformatted images are s ubmitted. Radiation Dose : 1. Head: CT Dose: CTDI volume is 55.57 mGy. Dose-length product is 1095.05 mGy*cm The dose indicators for CT are the volume Computed Tomography (CT) Dose Index (CTDIvol) and the Dose Length Product (DLP), and are measured in units of mGy and mGy-cm, respectively. These indicators are not patient dose, but values generated from the CT scanner acquisition factors. The report includes radiation exposure data for exposures received during this examination. All CT scans at this medical facility are performed using dose modulation techniques as appropriate to a performed exam including the following: Automated exposure control was utilized; adjustment of the MA and/or KV according to patient size; and use of iterative reconstruction technique. COMPARISON: CT HEAD WITHOUT CONTRAST on DOS: 03/22/25 FINDINGS: There is no evidence of acute intracranial hemorrhage, extra-axial collection, mass effect, midline s hift, herniation or hydrocephalus. There are periventricular and subcortical hypodensities, nonspecific, but likely reflecting sequelae of chronic microvascular ischemic changes. Generalized volume loss. The ventricles, sulci and cisterns are age appropriate. The granados-white differentiation is intact. The visualized paranasal sinuses and mastoid air cells are clear. No depressed calvarial fracture. The surrounding soft tissues are unremarkable. Endotracheal and enteric tubes are partially visualized. IMPRESSION: 1. No evidence of acute intracranial abnormality.
[2025-03-28] MEDS: ENALAPRILAT 1.25 MG/ML-1ML VIAL IV ONE (13:18)
[2025-03-28] MEDS: PIPERACILLIN-TAZOB 3.375GM 100 ML IV SCH (15:39)
--- NOTE | 2025-03-28 20:21 | DVHPNRES ---
Progress Note Date Seen: March 28, 2025 Resident Creating Document: JHCLAUDIA ELMORE RESIDENT Medical Necessity Reason Pt with a Central, PICC or Fol: Yes The following are medically ne: Perrin Catheter Subjective Review of Systems Patient seen and examined at the bedside Patient was off sedation and responding to commands chest x ray reviewed shows congestion with suspected right lower lobe developing consolidation patient could not be put on CPAP trial because she was not awake enough and not following commands net negative fluid balance of -2917ml over last 24 hrs, cummulative balance since the patient has been here -8729ml ABG- compensated Objective vital signs Vital Sign Date Time Temp Pulse Resp B/P (MAP) Pulse Ox O2 Delivery O2 Flow Rate FiO2 03/28/25 19:01 90 Mechanical Ventilator+ 30 30 03/28/25 19:00 96 23 140/69 (92) 03/28/25 18:45 98.8 98.8 Total Intake and Output 03/27/25 03/27/25 03/28/25 15:00 23:00 07:00 Intake Total 289.835 ml 28.080 ml 280.405 ml Output Total 1900 ml 1615 ml Balance 289.835 ml -1871.920 ml -1334.595 ml medications Current Medications Medications Dose Ordered Sig/Yesica Route Start Time Stop Time Status Last Admin Dose Admin Enoxaparin Sodium 40 mg DAILY SC 03/22/25 10:00 03/28/25 08:11 40 MG Vancomycin HCl 0 ml @ 0 mls/hr UD IV 03/22/25 03:45 Aspirin 81 mg DAILY PO 03/22/25 10:00 03/28/25 08:12 81 MG Clopidogrel Bisulfate 75 mg DAILY PO 03/22/25 10:00 03/28/25 08:12 75 MG Pantoprazole Sodium 40 mg DAILY IV 03/22/25 10:00 03/28/25 08:11 40 MG Diagnostic Test (Pha) 1 strip Q6HR 03/23/25 00:00 03/28/25 18:08 1 STRIP Insulin Human Regular Q6HR SC 03/23/25 00:00 03/28/25 17:30 4 UNITS Dextrose 50 ml UD PRN IV 03/22/25 19:45 Albuterol 2.5 mg Q6HR NEB 03/23/25 12:00 03/28/25 19:00 2.5 MG Ipratropium [place] 0.5 mg Q6HR NEB 03/23/25 12:00 03/28/25 19:00 0.5 MG Fentanyl Citrate 250 ml @ 2.5 mls/hr Q24H IV 03/23/25 13:00 03/28/25 16:49 2.5 MLS/HR Norepinephrine Bitartrate 250 ml @ 3.75 mls/hr Q24H IV 03/23/25 13:00 03/25/25 17:12 3.75 MLS/HR Propofol 100 ml @ 2.265 mls/ hr Q24H IV 03/23/25 18:30 03/27/25 04:53 4.53 MLS/HR Enteral Nutritional Formula 1,000 ml 30ML/HR GT 03/24/25 14:30 03/27/25 21:53 1,000 ML Acetaminophen 650 mg Q6HP PRN GT 03/25/25 18:45 03/27/25 11:21 650 MG Furosemide 80 mg BIDD IV 03/26/25 18:00 03/28/25 17:39 80 MG Methylprednisolone Sodium Succinate 20 mg BID IV 03/27/25 10:00 03/28/25 08:11 20 MG Piperacillin Sod/ Tazobactam Sod 100 ml @ 25 mls/hr Q8HR IV 03/28/25 14:00 03/28/25 15:39 25 MLS/HR Vancomycin HCl 150 ml @ 150 mls/hr Q24H IV 03/29/25 10:00 Enalaprilat 0.625 mg Q6HP PRN IV 03/28/25 18:15 Examination Constitutional: Sedated and on mechanical ventilation, RASS -3 Gen - mild conjunctival pallor, no icterus, no cyanosis, no clubbing, no LAD, no edema . Skin - Patients skin is warm and dry. HEENT - normocephalic, atraumatic, moist mucous membranes. Neck - full ROM, no LAD, jugular venous distention seen Pulmonary - B/L air entry with improved crackles, expiratory wheezing, no stridor. cardiovascular - variable S1,S2 heard, no added sounds, systolic murmur heard at the apex. capillary refill less than 2 seconds GI - soft abdomen. Bowel sounds normoactive Neurological - patient is sedated on mechanical ventilation, pupils equal and reactive, gag reflex present, bilateral plantar reflex downgoing laboratory and microbiology Laboratory Tests 03/28/25 04:48 Test 03/28/25 04:48 Range/Units Serum Glucose 234 H 74-106 mg/dL Microbiology Date/Time Source Procedure Growth Status 03/24/25 14:50 Blood Blood Culture - Preliminary NO GROWTH AFTER 72 HOURS OF INCUBATION. Resulted 03/23/25 13:05 Sputum Gram Stain - Final Complete 03/23/25 13:05 Sputum Respiratory Culture - Final Complete 03/23/25 05:42 Nose MRSA Screen - Final Complete 03/22/25 09:57 Voided Urine Urine Culture - Final Complete Problem List/Assessment/Plan Problem List/Assessment/Plan Neurology Acute metabolic encephalopathy likely due to UTI - head CT shows no acute intracranial hemorrhage, small-vessel ischemic changes seen - on mechanical ventilation, minimal vent settings - on 03/28 patient in the morning had dilated pupils with sudden change in neurological status following which CT head without contrast was done which did not show any acute intracranial abnormality Respiratory Acute on chronic hypoxic respiratory failure COPD ? Exacerbation Pneumonia likely due to Gram +/- bacteria Pulmonary edema Small bilateral pleural effusions - on mechanical ventilation - IV Lasix - nebs q.6 hours - IV antibiotics vancomycin and Zosyn Cardiovascular Acute on chronic heart failure with reduced ejection fraction Ischemic cardiomyopathy Cardiomegaly Coronary artery disease s/p PCI with 4 ДМИТРИЙ Shock likely cardiogenic/septic - echo in August 2024 shows LVEF 25% with anterior anteroseptal anteroapical wall akinesia - new echo done on 03/27/2025 showed LVEF 20 % with the visual estimate, dilated LV, akinetic anteroseptal, RV dysfunction, biatrial enlargement [id number] aortic regurg, severe mitral regurg, [id number] tricuspid regurg - BNP elevated - diuresis - GDMT - started on losartan - on DAPT - vasopressor if required - cardiology on board Infectious disease Septic shock likely due to pneumonia/UTI Sacral ulcer stage II - urine cultures show mixed teresa , blood cultures show staph epidermidis- repeat cultures negative, sputum, wound culture pending - urinary bladder wall thickening seen on CT - IV antibiotics vancomycin and Zosyn Endocrinology Uncontrolled type 2 diabetes with hyperglycemia - HbA1c 11.5% - mild ISS GI History of SBO s/p exploratory laparotomy Currently no GI issues - started on diet with NG tube Hematology Microcytic hypochromic anemia ?Anemia of chronic disease - monitoring H&H DVT prophylaxis: Enoxaparin PUD prophylaxis: Protonix Right subclavian triple-lumen central venous catheter started on 03/23 Perrin's catheter was changed on 03/23 Patient intubated on 03/23 Patient could not be put on CPAP trial because she was not awake enough to follow commands. Goals of care discussed with the patient's daughter Yue for over 37 minutes. Code status changed to do not resuscitate Critical care time spent excluding procedures: 69 minutes Plan discussed with Dr. Ram Plan discussed with: Daughter (Yue), Other (RN ( Salma )) My Orders My Orders Orders - CLAUDIA SMITH RESIDENT Procedure Category Date Status Time Chest Xray 1 View XY 03/28/25 Resulted 08:30 Piperacillin-Tazob PHA 03/28/25 In Process 3.375gm (Zosyn 3.375g 14:00 *Consult CONS 03/28/25 Transmitted / 11:57 Enalaprilat Injection PHA 03/28/25 In Process (Vasotec Injection 18:15 Basic Metabolic Panel LAB 03/29/25 Verified 04:00 Magnesium LAB 03/29/25 Verified 04:00 Chest Xray 1 View XY 03/29/25 Logged 04:00 Abg W/ Co-Ox RT 03/29/25 Logged 04:00 Dietary Evaluation Review Comments: Nutrition Recommendation: 1. TF Pivot 1.5 @ 45 ml/hr x 24 hr (GOAL) along with Pro-stat 1 pk daily. Begin @ 10 ml/hr; advance by 10 ml Q4 hrs or as tolerated to 45 ml/hr x 24 hrs 2. Provide free water flushes of 30 ml Q6 hrs (120 ml total); adjust PRN 3. Syd 1 pk BID, Vit C 500mg BID, Zinc sulfate 220 mb BID x 10 days, MVI w minerals 1 tab daily 4. Monitor BMP/lytes and replete to WNL/PRN TF Provision: TF at goal to provide 1080 ml total volume, 1620 kcal (+Pro-stat 100 kcal = 1720 kcal), 101 gm pro (+15gm prostat = 116gm), 820 ml H20 (meets 100% est. kcal needs, 100% est. pro needs) Expected Outcomes/Goals: To meet at least 75% estimated needs pressure ulcer & DTI to improve FU 2-3 days Date of Service: March 28, 2025 Billing Provider: LARISA RAM MD Common Visit Codes: [id number] CARE 30-74 MIN CLAUDIA SMITH RESIDENT March 28, 2025 20:21 LARISA RAM MD March 31, 2025 10:27
--- NOTE | 2025-03-28 21:03 | DVHINCON2 ---
Date of service: March 28, [address] Fernandes Reason for Consultation Abnormal CXR, evaluate for bronchoscopy History of Present Illness Year old woman history of ischemic cardiomyopathy with reduced ejection fraction 25%, multiple myocardial infarctions, CAD status post multiple stent placements, ICD placement, small bowel obstruction with prior abdominal surgeries, ventral hernia who was brought in due to altered mental status. Patient is currently sedated, intubated on mechanical ventilator. History is obtained from RN, and MD Cyr for patient. Patient is having increased endotracheal tube secretions. Chest x-ray demonstrates bilateral opacities. Pulmonary consultation is called for evaluation and bronchoscopy. Review of systems: Unable to obtain due to patient's critical condition. Past medical history: Heart failure with reduced ejection fraction, CAD, status post stent placement, ICD placement,, ICD placement, recurrent small-bowel obstruction, ventral hernia, anxiety, dementia, COPD Past surgical history: Appendectomy, cholecystectomy, hernia repair, hysterectomy, pacemaker, tonsillectomy, spine surgeries Medications: Reviewed Allergies: Codeine, iodine, lorazepam Social history: Unable to obtain due to patient's critical condition. Family history: No family history of premature CAD. No family history of lung disease Family History: Cardiovascular disease G8 MOTHER G8 FATHER Diabetes during Diabetes mellitus G8 MOTHER G8 FATHER FH: dementia G8 MOTHER Hypertension G8 MOTHER Allergies: Coded Allergies: Codeine (Verified Allergy, Unknown, 03/21/25) Iodine (Verified Allergy, Unknown, 04/04/18) Lorazepam (Verified Allergy, Unknown, 09/05/18) Home Meds Active Scripts Clopidogrel Bisulfate (CLOPIDOGREL) 75 Mg Tab, 75 MG PO DAILY for 30 Days, #30 TAB Prov:VARSHA LOFTON RESIDENT 08/29/24 Aspirin (Aspirin Low Dose) 81 Mg Tab, 81 MG PO DAILY for 30 Days, #30 TAB Prov:VARSHA LOFTON RESIDENT 08/29/24 Insulin Regular (Human) (Novolin R) 100 Unit/Ml Inj, 0 UNITS SC ACHS for 90 Days, #90 INJ Please use insulin Reglan 3 times a day before meal. Follow below instruction. Please check glucose via glucometer 3 times a day. If blood glucose is between 150 and 200 please administer 2 units of regular insulin. If blood glucose is between 200-250 please administer 4 units of regular insulin. If blood sugar is between 250 and 300 please administer 8 units of regular insulin. If blood sugar between 300-350 please administered 10 units of regular insulin. If blood sugars between 350 and 400 please administer 12 units of regular insulin. If blood sugars greater than 400 please talk to DrKinjal/come to the hospital. Prov:KJ HERMOSILLO RESIDENT 05/17/24 Carvedilol (COREG) 3.125 Mg Tab, 3.125 MG PO Q12HR for 30 Days, #60 TAB Prov:NUHA CORREIA MD 08/14/22 Reported Medications Hydrocodone-Acetaminophen (Hydrocodone Bitartrate/AC 10-325 mg) 1 Tab Tab, 1 TAB PO Q6HR PRN for 30 Days, #120 03/23/25 Gabapentin (Gabapentin) 300 Mg Cap, CAP PO UD for 30 Days, #120 TAKE 1 CAPSULE BY MOUTH IN THE MORNING, AND TAKE 2 CAPSULES BY MOUTH AT NIGHT. IF NO RELIEF, MAY INCREASE TO 3 CAPSULES AT NIGHT. 03/23/25 Fluoxetine Hcl (Fluoxetine Hcl) 40 Mg Cap, 2 CAP PO DAILY for 30 Days, #60 03/23/25 Atorvastatin Calcium (ATORVASTATIN CALCIUM) 10 Mg Tab, 1 TAB PO DAILY for 30 Days, #30 03/23/25 Potassium Chloride (Potassium Chloride ER) 10 Meq Tab, 1 TAB PO DAILY for 30 Days, #30 03/23/25 Empagliflozin (Jardiance) 10 Mg Tab, 1 TAB PO DAILY for 30 Days, #30 03/23/25 Furosemide (Furosemide) 40 Mg Tab, 1 TAB PO DAILY for 90 Days, #90 09/26/24 Pantoprazole Sodium Sesquihydr (Protonix) 40 Mg Tab, 20 MG PO DAILY 12/14/23 Losartan Potassium (Losartan Potassium) 50 Mg Tab, 1 TAB PO DAILY 12/14/23 Current Medications Current Medications Medications (Trade) Dose Ordered Sig/Yesica Route PRN Reason Start Time Stop Time Status Last Admin Vancomycin HCl 100 ml @ 100 mls/hr DAILY IV 03/28/25 10:00 03/28/25 12:23 DC 03/28/25 10:48 Potassium Chloride 100 ml @ 50 mls/hr Q2H IV 03/28/25 08:45 03/28/25 14:44 DC 03/28/25 13:17 Piperacillin Sod/ Tazobactam Sod 100 ml @ 25 mls/hr Q8HR IV 03/28/25 14:00 03/28/25 15:39 Vancomycin HCl 150 ml @ 150 mls/hr Q24H IV 03/29/25 10:00 Enalaprilat (Vasotec Injection) 0.625 mg Q6HP PRN IV SBP>160 03/28/25 18:15 Vital Signs Vital Signs Date Time Temp Pulse Resp B/P (MAP) Pulse Ox O2 Delivery O2 Flow Rate FiO2 03/28/25 20:00 78 20 115/48 (70) 96 30 03/28/25 19:01 Mechanical Ventilator+ 03/28/25 18:45 98.8 98.8 Physical Exam Gen.: Patient lying in bed in medical ICU. Sedated, intubated on mechanical ventilator. Head: Normocephalic, atraumatic. Eyes: PERRLA. Ears: Normal external anatomy. Throat: Endotracheal tube and orogastric tube in place. Neck: Supple, trachea midline. Chest: Transmitted breath sounds bilaterally. Decreased air entry bilaterally. No wheezing. Bibasilar crackles. Cardio vascular: Positive S1, positive S2. Regular rate and rhythm. Abdomen: Positive bowel sounds in all 4 quadrants. Soft, nontender, nondistended. : Perrin in place. Normal external genitalia. Rectal: Deferred Skin: Warm, dry. Intact. Extremities: 2+ radial pulses bilaterally. No lower extremity edema. Neuro: Sedated. Labs/Diagnostic Data Labs Test 03/28/25 16:15 03/28/25 06:47 03/28/25 04:48 03/27/25 06:38 Range/Units POC Glucose 243 H 70-106 mg/dl Blood Gas Specimen Type Arterial Blood Gas Sample Site Left radial Blood Gas Patient Temperature 37.0 Arterial Blood Date Drawn [id number] Arterial Blood pH 7.405 7.350-7.450 Arterial Blood Partial Pressure CO2 40.4 32.0-45.0 mmHg Arterial Blood Partial Pressure O2 69.7 L 83.0-108.0 mmHg Arterial Blood HCO3 24.7 21.0-28.0 mmol/L Arterial Blood Oxygen Saturation 91.8 L 94.0-98.0 % Arterial Blood Base Excess 0.1 -2.0-3.0 mmol/L Arterial Blood Oxyhemoglobin 90.9 L 94.0-98.0 % Arterial Blood Carboxyhemoglobin 0.8 0.5-1.5 % Arterial Blood Methemoglobin 0.2 0.0-1.5 % Moustapha Test Modified Blood Gas Total Hemoglobin 11.70 L 12.0-16.0 g/dL Blood Gas Set Respiration Rate 20.0 Blood Gas Modality Vent - ac Blood Gas Spontaneous Rate 24 FiO2 % 35.0 Blood Gas Tidal Volume 400.0 Blood Gas PEEP or CPAP 5.0 White Blood Count 7.4 4.4-10.8 10^3/uL Red Blood Count 3.77 L 4.0-5.20 10^6/uL Hemoglobin 9.1 L 12.2-16.2 g/dL Hematocrit 28.6 L 36.0-46.0 % Mean Corpuscular Volume 75.9 L 80.0-100.0 fL Mean Corpuscular Hemoglobin 24.2 L 28.0-32.0 pg Mean Corpuscular Hemoglobin Concent 31.9 L 32.0-36.0 g/dL Red Cell Distribution Width 17.5 H 11.8-14.3 % Platelet Count 365 140-450 10^3/uL Mean Platelet Volume 7.3 6.9-10.8 fL Neutrophils (%) (Auto) 91.3 H 37.0-80.0 % Lymphocytes (%) (Auto) 6.0 L 10.0-50.0 % Monocytes (%) (Auto) 2.7 0.0-12.0 % Eosinophils (%) (Auto) 0.0 0.0-7.0 % Basophils (%) (Auto) 0.0 0.0-2.0 % Neutrophils # (Auto) 6.7 1.6-8.6 10 ^3/uL Lymphocytes # (Auto) 0.4 0.4-5.4 10 ^3/uL Monocytes # (Auto) 0.2 0-1.3 10 ^3/uL Eosinophils # (Auto) 0 0-0.8 10 ^3/uL Basophils # (Auto) 0 0-0.2 10 ^3/uL Nucleated Red Blood Cells 0.0 % Sodium Level 143 136-145 mmol/L Potassium Level 3.2 L 3.5-5.1 mmol/L Chloride Level 101 98-107 mmol/L Carbon Dioxide Level 30 20-31 mmol/L Anion Gap 12 5-15 Blood Urea Nitrogen 26 H 9-23 mg/dL Creatinine 1.08 H 0.550-1.02 mg/dL Glomerular Filtration Rate Calc 55 >90 mL/min BUN/Creatinine Ratio 24.1 H 10.0-20.0 Serum Glucose 234 H 74-106 mg/dL Calcium Level 9.1 8.7-10.4 mg/dL Magnesium Level 2.2 1.6-2.6 mg/dL Blood Gas Critical Value Read Back Yes Blood Gas Notified Whom fernanda Fernandes md Blood Gas Notified Time [id number] Blood Gas Notified By Pest Control Chemical Technician francisco gutierrez Test 03/27/25 05:04 03/26/25 11:12 03/24/25 04:25 03/23/25 18:26 Range/Units Random Vancomycin Level 19.2 H 5-10 ug/mL Vancomycin Level Trough 38.4 *H 5-10 ug/mL Total Bilirubin 0.5 0.2-1.0 mg/dL Aspartate Amino Transferase (AST) 190 H 13-40 U/L Alanine Aminotransferase (ALT) 77 H 7-40 U/L Alkaline Phosphatase 127 H 46-116 U/L Total Protein 6.3 5.7-8.2 g/dL Albumin 3.7 3.2-4.8 g/dL Lactic Acid Level 1.4 0.4-2.0 mmol/L Test 03/23/25 17:00 03/23/25 09:20 03/23/25 04:45 03/22/25 01:50 Range/Units Urine Color Light-brown Yellow Urine Clarity Ex.turbid Clear Urine pH 5.5 5.0-9.0 Urine Specific Proctor 1.009 1.001-1.035 Urine Protein Trace H Negative Urine Ketones Negative Negative Urine Blood 1+ H Negative /uL Urine Nitrite Negative Negative Urine Bilirubin Negative Negative Urine Urobilinogen Normal Negative mg/dL Urine Leukocyte Esterase 3+ Negative /uL Urine RBC 54 0 - 4 /hpf Urine WBC Clumps Present None Seen /hpf Urine Microscopic WBC 630 H 0-5 /HPF Urine Squamous Epithelial Cells Few <5 /hpf Urine Bacteria Few H None Seen /hpf Urine Mucus Few None Seen Urine Glucose Trace Normal mg/dL Blood Gas EPAP 5 Blood Gas IPAP 12 Iron Level 22 L 50-170 ug/dL Total Iron Binding Capacity 257 250-425 ug/dL Percent Iron Saturation 8.6 L 15-50 % Ferritin 61.3 10-291 ng/mL Influenza Type A Antigen Negative Negative Influenza Type B Antigen Negative Negative SARS-CoV-2 Antigen (Rapid) Negative NEGATIVE Test 03/22/25 00:15 Range/Units Hemoglobin A1c 11.5 H <5.7 % A1C Troponin I High Sensitivity 16 </=34 ng/L B-Type Natriuretic Peptide 2378.35 0-100 pg/mL Thyroid Stimulating Hormone (TSH) 3.30 0.55-4.78 uIU/mL Microbiology Date/Time Source Procedure Growth Status 03/24/25 14:50 Blood Blood Culture - Preliminary NO GROWTH AFTER 72 HOURS OF INCUBATION. Resulted 03/23/25 13:05 Sputum Gram Stain - Final Complete 03/23/25 13:05 Sputum Respiratory Culture - Final Complete 03/23/25 05:42 Nose MRSA Screen - Final Complete 03/22/25 09:57 Voided Urine Urine Culture - Final Complete Assessment Impression: Acute hypoxic respiratory failure On mechanical ventilator Acute metabolic encephalopathy Urinary tract infection line COPD Pneumonia likely due to g negative versus Gram-positive bacteria Pulmonary edema Small pleural effusion Atelectasis Plan: s/p intubation on mechanical ventilator Increased ET tube secretions, will plan for bronchoscopy. Plan for BAL of RML. Will send for fungal and bacterial cultures. CXR image and report reviewed. ABG reviewed. Compensated. On precedex drip. On AC with RR 24, Vt 400 mL, Peep 5, FIo2 35%. Titrate FIO2 to keep O2 saturation above 92%. VAP bundle Daily ABG and CXR while intubated. Sedate for ventilatory synchrony Continue antibiotics. F/u cultures. Monitor renal function due to Acute kidney injury. Monitor electrolytes. Supplement as necessary. Monitor ins outs. Nutritional support. Accucheks, ISS. GI/DVT prophylaxis. Signing off. Please see separate procedure note for full details. FURTHER MANAGEMENT PER HOSPITALIST. Condition: Critical Prognosis: Poor given multiple comorbidities. Rest of plan per hospitalist and other consultants. A total of 36 minutes of critical care time was spent reviewing the patient record, examining the patient, making a diagnostic and therapeutic plan, discussing this plan with the medical personnel, following up on diagnostic studies and following the patient for clinical stability excluding any and all procedures. At least 50% of this time was spent in direct, [id number] contact. Thank you Dr. Fernandes for allowing me to participate in this patient's care. Please do not hesitate to contact me if you have any questions or concerns. This medical document was created using an electronic medical record system with [employer] dictation system. Although this document has been carefully reviewed, there may still be some phonetic and typographical errors. These areas are purely typographical due to imperfections of the software programs, and do not reflect any compromise in the patient's medical care. Plan discussed with: URMILA Dennis MD March 28, 2025 21:03
--- NOTE | 2025-03-28 22:44 | DVHNC2 ---
Procedure - Bronchoscopy procedure note: Indications: Right and left lower lobe atelectasis, Possible mucous plugging. Medicines: See BODY ENGINEER notes. Complications: None Procedure: Patient medications and allergies reviewed. The risks and benefits of the procedure and the sedation options and risk were discussed with the patient's healthcare proxy. All questions were answered and informed consent was obtained. Patient identification and proposed procedure were verified prior to the procedure by the physician, and a nurse, and the respiratory therapist in ICU room. The heart rate, respiratory rate, oxygen saturations, blood pressure, adequacy of pulmonary ventilation, and response to care were monitored throughout the procedure. The physical status of the patient was reassessed after the procedure. After obtaining informed consent, the bronchoscope was introduced through the endotracheal tube and advanced into the trachea bronchial tree of both lungs. The procedure was accomplished without difficulty. The patient tolerated the procedure well. Findings: The trachea is in normal caliber. The concha is sharp. The tracheobronchial tree of the right lung was examined to at least the first subsegmental level. The bronchial mucosa and anatomy in the right lung are normal. There are no endobronchial lesions. There was copious whitish secretions from right main stem bronchus onward throughout R4-R10. Right middle lobe (RML) Bronchoalveolar lavage (BAL) obtained. RML BAL sent for gram stain and culture, and fungal culture. The left upper lobe, lingula, and left lower lobe were examined to at least the first subsegmental level. Bronchial mucosa and anatomy in the left upper lobe and lingula are normal. There were no endobronchial lesions. There was copious whitish secretions from left main stem bronchus onward throughout L1-L10. Mucous plugging removed from L5-L10. There was no active bleeding at the completion of the procedure. Estimated blood loss: Less than 5 mL. Impression: Right and Left lower lobe atelectasis due to mucous plugging Lingula and RML atelectasis due mucous plugging Mucous plugging from L5-L10 and R4-R10 RML BAL performed Recommendation: Follow-up RML BAL results. Oral care and suctioning. Procedure codes: 74439, bronchoscopy, rigid and flexible, including fluoroscopic guidance, one performed; with bronchial endobronchial broncho-alveolar lavage, single or multiple sites URMILA LLOYD MD March 28, 2025 22:44
[2025-03-29] VITALS (99 sets, daily range): BP systolic 109–175; BP diastolic 44–122; PULSE 78–111; RESP 11–28; TEMP 99.1–100.9; O2SAT 88–100
--- NOTE | 2025-03-29 05:17 | DVH ---
EXAM: XR Chest, 1 View CLINICAL INDICATION: on vent., b/L congestion, Right lower consolidation TECHNIQUE: Frontal view of the chest. COMPARISON: XY CHEST XRAY 1 VIEW on DOS: 03/28/25, XY CHEST XRAY 1 VIEW on DOS: 03/27/25, XY CHEST XR AY 1 VIEW on DOS: 03/26/25, XY CHEST XRAY 1 VIEW on DOS: 03/25/25, XY CHEST PORTABLE on DOS: 03/24/25 FINDINGS: LUNGS AND PLEURAL SPACES: Congestive heart failure. Underlying pneumonia can not be excluded. No p neumothorax. HEART: Unremarkable. No cardiomegaly. MEDIASTINUM: Unremarkable. Normal mediastinal contour. BONES/JOINTS: Unremarkable. No acute fracture. TUBES, LINES AND DEVICES: The endotracheal tube (ETT) is in satisfactory position. Left-sided card iac pacemaker. OTHER FINDINGS: . IMPRESSION: Congestive heart failure. Underlying pneumonia can not be excluded.
[2025-03-29 05:31] LABS: Base Excess 9.8 mmol/L (-2.0-3.0)
[2025-03-29 05:35] LABS: Basophils # (auto) 0 10 ^3/uL (0-0.2); Chloride 101 mmol/L (98-107); Eosinophils # (auto) 0 10 ^3/uL (0-0.8); Hemoglobin 10.7 g/dL (12.2-16.2); Monocytes # (auto) 0.7 10 ^3/uL (0-1.3); Platelet Count (auto) 484 10^3/uL (140-450); Red Cell Distribution Width 18.1 % (11.8-14.3)
[2025-03-29 05:36] LABS: Anion Gap 14 (5-15); Calcium 9.8 mg/dL (8.7-10.4)
[2025-03-29 05:39] LABS: Basophils % (auto) 0.2 % (0.0-2.0); Hematocrit 33.2 % (36.0-46.0); Lymphocytes # (auto) 0.6 10 ^3/uL (0.4-5.4); Lymphocytes % (auto) 4.3 % (10.0-50.0); Mean Corpuscular Hemoglobin 24.3 pg (28.0-32.0); Mean Corpuscular Hgb Conc. 32.1 g/dL (32.0-36.0); Mean Corpuscular Volume 75.9 fL (80.0-100.0); Monocytes % (auto) 5.2 % (0.0-12.0); Neutrophils # (auto) 12.5 10 ^3/uL (1.6-8.6); Neutrophils % (auto) 90.3 % (37.0-80.0); Red Blood Cells 4.38 10^6/uL (4.0-5.20); White Blood Cell 13.8 10^3/uL (4.4-10.8)
[2025-03-29 05:42] LABS: Magnesium 2.2 mg/dL (1.6-2.6)
[2025-03-29 05:59] LABS: Blood Urea Nitrogen 32 mg/dL (9-23); Carbon Dioxide 32 mmol/L (20-31); Glucose 292 mg/dL (74-106); Potassium 2.9 mmol/L (3.5-5.1); Sodium 147 mmol/L (136-145)
[2025-03-29] MEDS: ENALAPRILAT 1.25 MG/ML-1ML VIAL IV PRN (06:21)
[2025-03-29] MEDS: POTASSIUM CHL 20MEQ/100ML 100 ML IV SCH ×3 (06:37→18:04)
--- NOTE | 2025-03-29 07:36 | DVHPN2 ---
Progress Note Date Seen: March 29, 2025 Medical Necessity Reason Pt with a Central, PICC or Fol: Yes The following are medically ne: Perrin Catheter Subjective Other Systems: intubated no cpap done diuresed well Objective vital signs Vital Sign Date Time Temp Pulse Resp B/P (MAP) Pulse Ox O2 Delivery O2 Flow Rate FiO2 03/29/25 07:00 86 17 149/54 (85) 100 03/29/25 06:30 30 03/29/25 06:00 Mechanical Ventilator+ 03/29/25 04:00 99.9 99.9 Total Intake and Output 03/28/25 03/28/25 03/29/25 14:59 22:59 06:59 Intake Total 61.455 ml 85.0 ml 310 ml Output Total 1750 ml 1600 ml Balance 61.455 ml -1665.0 ml -1290 ml medications Current Medications Medications Dose Ordered Sig/Yesica Route Start Time Stop Time Status Last Admin Dose Admin Enoxaparin Sodium 40 mg DAILY SC 03/22/25 10:00 03/28/25 08:11 40 MG Vancomycin HCl 0 ml @ 0 mls/hr UD IV 03/22/25 03:45 Aspirin 81 mg DAILY PO 03/22/25 10:00 03/28/25 08:12 81 MG Clopidogrel Bisulfate 75 mg DAILY PO 03/22/25 10:00 03/28/25 08:12 75 MG Pantoprazole Sodium 40 mg DAILY IV 03/22/25 10:00 03/28/25 08:11 40 MG Diagnostic Test (Pha) 1 strip Q6HR 03/23/25 00:00 03/29/25 06:08 1 STRIP Insulin Human Regular Q6HR SC 03/23/25 00:00 03/29/25 06:09 6 UNITS Dextrose 50 ml UD PRN IV 03/22/25 19:45 Albuterol 2.5 mg Q6HR NEB 03/23/25 12:00 03/29/25 06:33 2.5 MG Ipratropium [place] 0.5 mg Q6HR NEB 03/23/25 12:00 03/29/25 06:33 0.5 MG Fentanyl Citrate 250 ml @ 2.5 mls/hr Q24H IV 03/23/25 13:00 03/28/25 16:49 2.5 MLS/HR Norepinephrine Bitartrate 250 ml @ 3.75 mls/hr Q24H IV 03/23/25 13:00 03/25/25 17:12 3.75 MLS/HR Propofol 100 ml @ 2.265 mls/ hr Q24H IV 03/23/25 18:30 03/27/25 04:53 4.53 MLS/HR Enteral Nutritional Formula 1,000 ml 30ML/HR GT 03/24/25 14:30 03/28/25 21:26 1,000 ML Acetaminophen 650 mg Q6HP PRN GT 03/25/25 18:45 03/29/25 02:58 650 MG Furosemide 80 mg BIDD IV 03/26/25 18:00 03/28/25 17:39 80 MG Methylprednisolone Sodium Succinate 20 mg BID IV 03/27/25 10:00 03/28/25 20:56 20 MG Piperacillin Sod/ Tazobactam Sod 100 ml @ 25 mls/hr Q8HR IV 03/28/25 14:00 03/29/25 06:08 25 MLS/HR Vancomycin HCl 150 ml @ 150 mls/hr Q24H IV 03/29/25 10:00 Enalaprilat 0.625 mg Q6HP PRN IV 03/28/25 18:15 03/29/25 06:21 0.625 MG Potassium Chloride 100 ml @ 50 mls/hr Q2H IV 03/29/25 06:30 03/29/25 10:29 03/29/25 06:37 50 MLS/HR Examination: GENERAL:Abnormal, HEENT:Abnormal, LUNGS:Abnormal, CVS:Abnormal, ABDOMEN:Abnormal laboratory and microbiology Laboratory Tests 03/29/25 04:54 Test 03/29/25 04:54 Range/Units Serum Glucose 292 H 74-106 mg/dL Microbiology Date/Time Source Procedure Growth Status 03/24/25 14:50 Blood Blood Culture - Preliminary NO GROWTH AFTER 72 HOURS OF INCUBATION. Resulted 03/23/25 13:05 Sputum Gram Stain - Final Complete 03/23/25 13:05 Sputum Respiratory Culture - Final Complete 03/23/25 05:42 Nose MRSA Screen - Final Complete 03/22/25 09:57 Voided Urine Urine Culture - Final Complete Problem List/Assessment/Plan Problem List/Assessment/Plan severe ICM severe valve disease/ chronic resp failure non ambulatory ckd HTN HL cont lasix cpap trial, extubate when feasible cont dapt cont GDMT, hf meds poor prognosis contraction alkalosis--would cut down diuretic dosing today, also treat hypokalemia, per primary service Plan discussed with: Other (rn) Dietary Evaluation Review Comments: Nutrition Recommendation: 1. TF Pivot 1.5 @ 45 ml/hr x 24 hr (GOAL) along with Pro-stat 1 pk daily. Begin @ 10 ml/hr; advance by 10 ml Q4 hrs or as tolerated to 45 ml/hr x 24 hrs 2. Provide free water flushes of 30 ml Q6 hrs (120 ml total); adjust PRN 3. Syd 1 pk BID, Vit C 500mg BID, Zinc sulfate 220 mb BID x 10 days, MVI w minerals 1 tab daily 4. Monitor BMP/lytes and replete to WNL/PRN TF Provision: TF at goal to provide 1080 ml total volume, 1620 kcal (+Pro-stat 100 kcal = 1720 kcal), 101 gm pro (+15gm prostat = 116gm), 820 ml H20 (meets 100% est. kcal needs, 100% est. pro needs) Expected Outcomes/Goals: To meet at least 75% estimated needs pressure ulcer & DTI to improve FU 2-3 days Date of Service: March 29, 2025 Billing Provider: KOLTON RAMOS MD Common Visit Codes: NOT BILLABLE KOLTON RAMOS MD March 29, 2025 07:36
[2025-03-29] MEDS: SPIRONOLACTONE 25 MG TAB PO ONE (07:45)
[2025-03-29] MEDS: VANCOMYCIN 750mg/150ml 150 ML IV SCH (09:46)
[2025-03-29] MEDS: FUROSEMIDE 100 MG/10ML VIAL IV SCH (09:48)
[2025-03-29 14:01] LABS: Base Excess 7.8 mmol/L (-2.0-3.0)
[2025-03-29] MEDS: ACETAMINOPHEN 650 MG RECT SUPP PR PRN (14:46)
[2025-03-29] MEDS ORDERED: ENALAPRILAT 1.25 MG/ML-1ML VIAL IV PRN ×2 (17:45→19:15)
[2025-03-29] MEDS ORDERED: KETOROLAC TROMETH 30 MG/ML 1ML VIAL IV PRN (17:45)
[2025-03-29] MEDS: ACETYLCYSTEINE 10 %(100MG/ML) SOL 4ML NEB SCH (18:38)
[2025-03-29 18:43] LABS: Urine Bacteria None Seen /hpf (None Seen)
[2025-03-29 19:10] LABS: Urine Blood 1+ /uL (Negative); Urine Clarity Clear (Clear); Urine Color Light-Yellow (Yellow); Urine Hyaline Cast FEW /lpf (0 - 2); Urine Protein, UAD 1+ (Negative); Urine Specific Gravity 1.016 (1.001-1.035); Urine Squamous Epithelial Cell FEW /hpf (<5); Urine Urobilinogen Normal (Negative); Urine WBC < 1 /HPF (0-5); Urine pH 6.5 (5.0-9.0)
[2025-03-29] MEDS: FUROSEMIDE 40 MG/4 ML VIAL IV ONE (20:06)
[2025-03-29] MEDS: NITROGLYCERIN 50MG/250ML 250 ML IV SCH (20:07)
--- NOTE | 2025-03-29 20:45 | DVHPN2 ---
Progress Note - Dictate Date Seen: March 29, 2025 Medical Necessity Reason Pt with a Central, PICC or Fol: Yes The following are medically ne: Wahl Catheter Reason for wahl catheter: Strict I&O Subjective Patient seen and examined at bedside. S/p extubation, on supplemental oxygen Overnight events reviewed. vital signs Vital Sign Date Time Temp Pulse Resp B/P (MAP) Pulse Ox O2 Delivery O2 Flow Rate FiO2 03/29/25 20:20 155/61 03/29/25 20:00 100.4 98 19 98 100.4 03/29/25 18:38 Nasal Cannula* 2 28 Total Intake and Output 03/28/25 03/28/25 03/29/25 15:00 23:00 07:00 Intake Total 50.925 ml 120.0 ml 360 ml Output Total 1750 ml 1600 ml Balance 50.925 ml -1630.0 ml -1240 ml medications Current Medications Medications Dose Ordered Sig/Yesica Route Start Time Stop Time Status Last Admin Dose Admin Enoxaparin Sodium 40 mg DAILY SC 03/22/25 10:00 03/29/25 09:50 40 MG Vancomycin HCl 0 ml @ 0 mls/hr UD IV 03/22/25 03:45 Aspirin 81 mg DAILY PO 03/22/25 10:00 03/29/25 09:51 81 MG Clopidogrel Bisulfate 75 mg DAILY PO 03/22/25 10:00 03/29/25 09:51 75 MG Pantoprazole Sodium 40 mg DAILY IV 03/22/25 10:00 03/29/25 09:48 40 MG Diagnostic Test (Pha) 1 strip Q6HR 03/23/25 00:00 03/29/25 18:04 1 STRIP Insulin Human Regular Q6HR SC 03/23/25 00:00 03/29/25 18:07 4 UNITS Dextrose 50 ml UD PRN IV 03/22/25 19:45 Albuterol 2.5 mg Q6HR NEB 03/23/25 12:00 03/29/25 18:38 2.5 MG Ipratropium [place] 0.5 mg Q6HR NEB 03/23/25 12:00 03/29/25 18:37 0.5 MG Enteral Nutritional Formula 1,000 ml 30ML/HR GT 03/24/25 14:30 03/28/25 21:26 1,000 ML Acetaminophen 650 mg Q6HP PRN GT 03/25/25 18:45 03/29/25 02:58 650 MG Methylprednisolone Sodium Succinate 20 mg BID IV 03/27/25 10:00 03/29/25 09:49 20 MG Piperacillin Sod/ Tazobactam Sod 100 ml @ 25 mls/hr Q8HR IV 03/28/25 14:00 03/29/25 13:51 25 MLS/HR Vancomycin HCl 150 ml @ 150 mls/hr Q24H IV 03/29/25 10:00 03/29/25 09:46 150 MLS/HR Furosemide 60 mg DAILY IV 03/29/25 10:00 03/29/25 09:48 60 MG Acetaminophen 650 mg Q6HP PRN [place] 03/29/25 14:15 03/29/25 14:46 650 MG Acetylcysteine 100 mg Q6HR NEB 03/29/25 18:00 03/29/25 18:38 100 MG Ketorolac Tromethamine 15 mg Q6HPRN PRN IV 03/29/25 17:45 04/03/25 17:44 Hold Potassium Chloride 100 ml @ 50 mls/hr Q2H IV 03/29/25 17:45 03/29/25 21:44 03/29/25 20:06 50 MLS/HR Enalaprilat 1.25 mg Q6HP PRN IV 03/29/25 19:15 Nitroglycerin 250 ml @ 1.5 mls/hr Q24H IV 03/29/25 19:30 03/29/25 20:07 1.5 MLS/HR objective Gen.: Patient lying in bed in no apparent distress. On supplemental oxygen. Head: Normocephalic, atraumatic. Eyes: EOMI/PERRLA. Ears: Normal hearing. Normal anatomy. Neck/trachea: Trachea midline, supple. Nose: Normal external anatomy. Mouth: Moist mucous membranes. Chest: Decreased air entry bilaterally. No wheezing or rhonchi. Cardiovascular: Positive S1, positive S2. Regular rate and rhythm. Abdomen: Positive bowel sounds in all 4 quadrants. Soft, non-tender, non- distended. : Deferred. Rectal: Deferred. Skin: Warm, dry. Intact. Extremities: 2+ radial pulses bilaterally. No lower extremity edema. Neuro: Awake, alert, oriented x3. No gross motor or sensory deficits. Cranial nerves II through XII intact. Gait not assessed. laboratory and microbiology Laboratory Tests 03/29/25 16:30 03/29/25 04:54 Test 03/29/25 04:54 Range/Units Serum Glucose 292 H 74-106 mg/dL Assessment/Plan Impression: Acute hypoxic respiratory failure Mechanical ventilation, s/p extubation Acute metabolic encephalopathy Urinary tract infection line COPD Pneumonia likely due to g negative versus Gram-positive bacteria Pulmonary edema Small pleural effusion Atelectasis Events: Patient seen at bedside S/p CPAP She tolerated CPAP and was extubated uneventfully at 11:20 AM. Currently on supplemental oxygen, 2 LPM NC Taper O2 as tolerated No distress Patient is DNR status Head of bed elevation Aspiration precautions Continue IV steroids Continue antibiotics Incentive spirometry Diurese with Lasix Monitor renal function Monitor electrolytes. Supplement as necessary. Potassium supplementation Monitor ins and outs S/p bronchoscopy with BAL of RML on 03/28/25 - cleared mucous plugging from L5- L10 and R4-R10 Please see separate procedure note for details. Sent for fungal and bacterial cultures. Labs and imaging reviewed. Rest of plan as noted below. Plan: S/p extubation On supplemental oxygen Titrate to keep O2 sats above 90%. Continue antibiotics. F/u cultures. IV steroids Monitor renal function due to acute kidney injury. Monitor electrolytes. Supplement as necessary. Monitor ins outs. Nutritional support. Accu-Cheks, ISS. GI/DVT prophylaxis. Signing off. FURTHER MANAGEMENT PER HOSPITALIST. Condition: Critical Prognosis: Poor given multiple comorbidities. Rest of plan per hospitalist and other consultants. A total of 35 minutes of critical care time was spent reviewing the patient record, examining the patient, making a diagnostic and therapeutic plan, discussing this plan with the medical personnel, following up on diagnostic studies and following the patient for clinical stability excluding any and all procedures. At least 50% of this time was spent in direct, [id number] contact. Thank you Dr. Fernandes for allowing me to participate in this patient's care. Please do not hesitate to contact me if you have any questions or concerns. This medical document was created using an electronic medical record system with [employer] system. Although this document has been carefully reviewed, there may still be some phonetic and typographical errors. These areas are purely typographical due to imperfections of the software programs, and do not reflect any compromise in the patient's medical care. Dietary Evaluation Review Comments: Nutrition Recommendation: 1. TF Pivot 1.5 @ 45 ml/hr x 24 hr (GOAL) along with Pro-stat 1 pk daily. Begin @ 10 ml/hr; advance by 10 ml Q4 hrs or as tolerated to 45 ml/hr x 24 hrs 2. Provide free water flushes of 30 ml Q6 hrs (120 ml total); adjust PRN 3. Syd 1 pk BID, Vit C 500mg BID, Zinc sulfate 220 mb BID x 10 days, MVI w minerals 1 tab daily 4. Monitor BMP/lytes and replete to WNL/PRN TF Provision: TF at goal to provide 1080 ml total volume, 1620 kcal (+Pro-stat 100 kcal = 1720 kcal), 101 gm pro (+15gm prostat = 116gm), 820 ml H20 (meets 100% est. kcal needs, 100% est. pro needs) Expected Outcomes/Goals: To meet at least 75% estimated needs pressure ulcer & DTI to improve FU 2-3 days Plan discussed with: Other (JOURDAN Cabrera) Critical Care Time(min): 35 URMILA LLOYD MD March 29, 2025 20:45
--- NOTE | 2025-03-29 21:43 | DVHPNRES ---
Progress Note Date Seen: March 29, 2025 Resident Creating Document: CLAUDIA SMITH RESIDENT Medical Necessity Reason Pt with a Central, PICC or Fol: Yes The following are medically ne: Wahl Catheter Reason for wahl catheter: Strict I&O Subjective Review of Systems Patient seen and examined at the bedside Patient extubated today after which he was put on BiPAP and then transition to nasal cannula net negative fluid balance of -2900ml over last 24 hrs, cummulative balance since the patient has been here -11L ABG showed metabolic alkalosis Objective vital signs Vital Sign Date Time Temp Pulse Resp B/P (MAP) Pulse Ox O2 Delivery O2 Flow Rate FiO2 03/29/25 21:12 151/74 03/29/25 20:00 94 15 100 Nasal Cannula* 2 28 03/29/25 20:00 100.4 100.4 Total Intake and Output 03/28/25 03/28/25 03/29/25 15:00 23:00 07:00 Intake Total 50.925 ml 120.0 ml 360 ml Output Total 1750 ml 1600 ml Balance 50.925 ml -1630.0 ml -1240 ml medications Current Medications Medications Dose Ordered Sig/Yesica Route Start Time Stop Time Status Last Admin Dose Admin Enoxaparin Sodium 40 mg DAILY SC 03/22/25 10:00 03/29/25 09:50 40 MG Vancomycin HCl 0 ml @ 0 mls/hr UD IV 03/22/25 03:45 Aspirin 81 mg DAILY PO 03/22/25 10:00 03/29/25 09:51 81 MG Clopidogrel Bisulfate 75 mg DAILY PO 03/22/25 10:00 03/29/25 09:51 75 MG Pantoprazole Sodium 40 mg DAILY IV 03/22/25 10:00 03/29/25 09:48 40 MG Diagnostic Test (Pha) 1 strip Q6HR 03/23/25 00:00 03/29/25 18:04 1 STRIP Insulin Human Regular Q6HR SC 03/23/25 00:00 03/29/25 18:07 4 UNITS Dextrose 50 ml UD PRN IV 03/22/25 19:45 Albuterol 2.5 mg Q6HR NEB 03/23/25 12:00 03/29/25 18:38 2.5 MG Ipratropium [place] 0.5 mg Q6HR NEB 03/23/25 12:00 03/29/25 18:37 0.5 MG Enteral Nutritional Formula 1,000 ml 30ML/HR GT 03/24/25 14:30 03/28/25 21:26 1,000 ML Acetaminophen 650 mg Q6HP PRN GT 03/25/25 18:45 03/29/25 02:58 650 MG Methylprednisolone Sodium Succinate 20 mg BID IV 03/27/25 10:00 03/29/25 09:49 20 MG Piperacillin Sod/ Tazobactam Sod 100 ml @ 25 mls/hr Q8HR IV 03/28/25 14:00 03/29/25 13:51 25 MLS/HR Vancomycin HCl 150 ml @ 150 mls/hr Q24H IV 03/29/25 10:00 03/29/25 09:46 150 MLS/HR Furosemide 60 mg DAILY IV 03/29/25 10:00 03/29/25 09:48 60 MG Acetaminophen 650 mg Q6HP PRN [place] 03/29/25 14:15 03/29/25 14:46 650 MG Acetylcysteine 100 mg Q6HR NEB 03/29/25 18:00 03/29/25 18:38 100 MG Ketorolac Tromethamine 15 mg Q6HPRN PRN IV 03/29/25 17:45 04/03/25 17:44 Hold Potassium Chloride 100 ml @ 50 mls/hr Q2H IV 03/29/25 17:45 03/29/25 21:44 03/29/25 20:06 50 MLS/HR Enalaprilat 1.25 mg Q6HP PRN IV 03/29/25 19:15 Nitroglycerin 250 ml @ 1.5 mls/hr Q24H IV 03/29/25 19:30 03/29/25 20:07 1.5 MLS/HR Examination Constitutional: Patient extubated , following commands but is delirious Gen - mild conjunctival pallor, no icterus, no cyanosis, no clubbing, no LAD, no edema . Skin - Patients skin is warm and dry. HEENT - normocephalic, atraumatic, moist mucous membranes. Neck - full ROM, no LAD, jugular venous distention seen Pulmonary - B/L air entry with improved crackles, expiratory wheezing, no stridor. cardiovascular - variable S1,S2 heard, no added sounds, systolic murmur heard at the apex. capillary refill less than 2 seconds GI - soft abdomen. Bowel sounds normoactive Neurological - following commands, delirious laboratory and microbiology Laboratory Tests 03/29/25 16:30 03/29/25 04:54 Test 03/29/25 04:54 Range/Units Serum Glucose 292 H 74-106 mg/dL Microbiology Date/Time Source Procedure Growth Status 03/24/25 14:50 Blood Blood Culture - Final NO GROWTH AFTER 5 DAYS OF INCUBATION. Complete 03/23/25 13:05 Sputum Gram Stain - Final Complete 03/23/25 13:05 Sputum Respiratory Culture - Final Complete 03/23/25 05:42 Nose MRSA Screen - Final Complete 03/22/25 09:57 Voided Urine Urine Culture - Final Complete Problem List/Assessment/Plan Problem List/Assessment/Plan Neurology Acute metabolic encephalopathy likely due to UTI and hypoxic respiratory failure - head CT shows no acute intracranial hemorrhage, small-vessel ischemic changes seen - on mechanical ventilation, minimal vent settings - on 03/28 patient in the morning had dilated pupils with sudden change in neurological status following which CT head without contrast was done which did not show any acute intracranial abnormality Respiratory Acute on chronic hypoxic respiratory failure COPD ? Exacerbation Pneumonia likely due to Gram +/- bacteria Pulmonary edema Small bilateral pleural effusions - on mechanical ventilation - IV Lasix - nebs q.6 hours - IV antibiotics vancomycin and Zosyn Cardiovascular Acute on chronic heart failure with reduced ejection fraction Ischemic cardiomyopathy Cardiomegaly Coronary artery disease s/p PCI with 4 ДМИТРИЙ Shock likely cardiogenic/septic - echo in August 2024 shows LVEF 25% with anterior anteroseptal anteroapical wall akinesia - new echo done on 03/27/2025 showed LVEF 20 % with the visual estimate, dilated LV, akinetic anteroseptal, RV dysfunction, biatrial enlargement [id number] aortic regurg, severe mitral regurg, [id number]-[id number] tricuspid regurg - BNP elevated - diuresis - GDMT - started on losartan - on DAPT - vasopressor if required - cardiology on board Infectious disease Septic shock likely due to pneumonia/UTI Sacral ulcer stage II - urine cultures show mixed teresa , blood cultures show staph epidermidis- repeat cultures negative, sputum, wound culture pending - urinary bladder wall thickening seen on CT - IV antibiotics vancomycin and Zosyn Nephrology 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 Code status: DNR Critical care time spent excluding procedures: 63 minutes Plan discussed with Dr. Ram Plan discussed with: Other (Daughter, RN (Deborah)) My Orders My Orders Orders - CLAUDIA SMITH RESIDENT Procedure Category Date Status Time Cpap Trial For Am ORDERS 03/29/25 Transmitted 09:06 Abg W/ Co-Ox RT 03/29/25 Logged 10:51 Cpap/Sed Vacation Med ORDERS 03/29/25 Transmitted Weaning 08:50 Acetaminophen PHA 03/29/25 In Process Suppository (Tylenol 14:15 Acetylcysteine PHA 03/29/25 In Process Inhalation 10% 18:00 Blood Culture RAGHAV 03/29/25 In Process 17:40 Urine Bacterial RAGHAV 03/29/25 In Process Culture 18:53 Ketorolac Injection PHA 03/29/25 In Process (Toradol Injection) 17:45 Potassium Chl PHA 03/29/25 In Process 20meq/100ml 17:45 Enalaprilat Injection PHA 03/29/25 In Process (Vasotec Injection 19:15 Nitroglycerin PHA 03/29/25 In Process 50mg/250ml (Tridil) 19:30 Pharmacy [facility] 03/29/25 In Process Clarification: 20:53 Dietary Evaluation Review Comments: Nutrition Recommendation: 1. TF Pivot 1.5 @ 45 ml/hr x 24 hr (GOAL) along with Pro-stat 1 pk daily. Begin @ 10 ml/hr; advance by 10 ml Q4 hrs or as tolerated to 45 ml/hr x 24 hrs 2. Provide free water flushes of 30 ml Q6 hrs (120 ml total); adjust PRN 3. Syd 1 pk BID, Vit C 500mg BID, Zinc sulfate 220 mb BID x 10 days, MVI w minerals 1 tab daily 4. Monitor BMP/lytes and replete to WNL/PRN TF Provision: TF at goal to provide 1080 ml total volume, 1620 kcal (+Pro-stat 100 kcal = 1720 kcal), 101 gm pro (+15gm prostat = 116gm), 820 ml H20 (meets 100% est. kcal needs, 100% est. pro needs) Expected Outcomes/Goals: To meet at least 75% estimated needs pressure ulcer & DTI to improve FU 2-3 days Date of Service: March 29, 2025 Billing Provider: LARISA RAM MD Common Visit Codes: [id number] CARE 30-74 MIN CLAUDIA SMITH RESIDENT March 29, 2025 21:43 LARISA RAM MD March 31, 2025 10:27
[2025-03-29] MEDS: HALOPERIDOL LACTATE 5 MG/ML INJ VIAL IM ONE (22:44)
[2025-03-30] VITALS (100 sets, daily range): BP systolic 118–165; BP diastolic 52–80; PULSE 80–103; RESP 14–33; TEMP 98.4–100.2; O2SAT 91–100
[2025-03-30 04:59] LABS: Basophils # (auto) 0 10 ^3/uL (0-0.2); Eosinophils # (auto) 0 10 ^3/uL (0-0.8); Lymphocytes # (auto) 0.6 10 ^3/uL (0.4-5.4); Monocytes # (auto) 0.5 10 ^3/uL (0-1.3); Monocytes % (auto) 3.8 % (0.0-12.0); Red Cell Distribution Width 17.9 % (11.8-14.3)
[2025-03-30 05:01] LABS: Hematocrit 33.6 % (36.0-46.0); Hemoglobin 10.7 g/dL (12.2-16.2); Lymphocytes % (auto) 4.6 % (10.0-50.0); Mean Corpuscular Hgb Conc. 31.8 g/dL (32.0-36.0); Mean Corpuscular Volume 75.4 fL (80.0-100.0); Neutrophils % (auto) 91.6 % (37.0-80.0); Platelet Count (auto) 504 10^3/uL (140-450); Red Blood Cells 4.45 10^6/uL (4.0-5.20); White Blood Cell 13.1 10^3/uL (4.4-10.8)
[2025-03-30 05:09] LABS: Anion Gap 13 (5-15); Chloride 104 mmol/L (98-107); Potassium 3.5 mmol/L (3.5-5.1)
[2025-03-30 05:10] LABS: Calcium 9.5 mg/dL (8.7-10.4)
[2025-03-30 05:11] LABS: Carbon Dioxide 33 mmol/L (20-31); Sodium 150 mmol/L (136-145)
[2025-03-30 05:15] LABS: BUN/Creatinine Ratio 29.5 (10.0-20.0); Magnesium 2.4 mg/dL (1.6-2.6)
[2025-03-30 05:16] LABS: Blood Urea Nitrogen 33 mg/dL (9-23); Glucose 305 mg/dL (74-106)
--- NOTE | 2025-03-30 05:54 | DVH ---
EXAM: XR Chest, 1 View CLINICAL INDICATION: s/p extubation, B/L pulm edema TECHNIQUE: Frontal view of the chest. COMPARISON: XY CHEST XRAY 1 VIEW on DOS: 03/29/25, XY CHEST XRAY 1 VIEW on DOS: 03/28/25, XY CHEST XR AY 1 VIEW on DOS: 03/27/25, XY CHEST XRAY 1 VIEW on DOS: 03/26/25, XY CHEST XRAY 1 VIEW on DOS: 03/25/25 FINDINGS: LUNGS AND PLEURAL SPACES: See below. HEART: Cardiomegaly with mild congestion. MEDIASTINUM: Unremarkable. Normal mediastinal contour. BONES/JOINTS: Unremarkable. No acute fracture. TUBES, LINES AND DEVICES: Left-sided cardiac pacemaker. OTHER FINDINGS: . . IMPRESSION: Cardiomegaly with mild congestion.
[2025-03-30] MEDS: POTASSIUM CHL 20MEQ/100ML 100 ML IV ONE ×2 (07:03→09:00)
[2025-03-30 09:34] LABS: Base Excess 9.1 mmol/L (-2.0-3.0)
[2025-03-30] MEDS: INSULIN LANTUS (GLARGINE) 1 /0.01ml (100units/ml) SC ONE (10:02)
[2025-03-30] MEDS: POTASSIUM CHLORIDE IV ONE (11:05)
[2025-03-30] MEDS: D5W 5% IV ONE (11:05)
[2025-03-30] MEDS: ENALAPRILAT 1.25 MG/ML-1ML VIAL IV PRN (16:55)
--- NOTE | 2025-03-30 18:41 | DVHPNRES ---
Progress Note Date Seen: March 30, 2025 Resident Creating Document: JHCLAUDIA ELMORE RESIDENT Medical Necessity Reason Pt with a Central, PICC or Fol: Yes The following are medically ne: Wahl Catheter Reason for wahl catheter: Strict I&O Subjective Review of Systems Patient seen and examined with the bedside Patient is alert and oriented x1, following minimal commands, gag reflex minimally present Net negative balance over the last 24 hours noted to be -2500 mL ABG showed a mixed metabolic and respiratory alkalosis Objective vital signs Vital Sign Date Time Temp Pulse Resp B/P (MAP) Pulse Ox O2 Delivery O2 Flow Rate FiO2 03/30/25 18:13 95 18 100 03/30/25 18:03 Nasal Cannula* 2 28 03/30/25 18:00 150/67 (94) 03/30/25 16:00 98.4 98.4 Total Intake and Output 03/29/25 03/29/25 03/30/25 15:00 23:00 07:00 Intake Total 415 ml 215.0 ml 222.0 ml Output Total 2050 ml 1400 ml Balance 415 ml -1835.0 ml -1178.0 ml medications Current Medications Medications Dose Ordered Sig/Yesica Route Start Time Stop Time Status Last Admin Dose Admin Enoxaparin Sodium 40 mg DAILY SC 03/22/25 10:00 03/30/25 10:19 40 MG Vancomycin HCl 0 ml @ 0 mls/hr UD IV 03/22/25 03:45 Aspirin 81 mg DAILY PO 03/22/25 10:00 03/29/25 09:51 81 MG Clopidogrel Bisulfate 75 mg DAILY PO 03/22/25 10:00 03/29/25 09:51 75 MG Pantoprazole Sodium 40 mg DAILY IV 03/22/25 10:00 03/30/25 10:17 40 MG Diagnostic Test (Pha) 1 strip Q6HR 03/23/25 00:00 03/30/25 18:08 1 STRIP Insulin Human Regular Q6HR SC 03/23/25 00:00 03/30/25 18:32 6 UNITS Dextrose 50 ml UD PRN IV 03/22/25 19:45 Albuterol 2.5 mg Q6HR NEB 03/23/25 12:00 03/30/25 18:03 2.5 MG Ipratropium [place] 0.5 mg Q6HR NEB 03/23/25 12:00 03/30/25 18:03 0.5 MG Enteral Nutritional Formula 1,000 ml 30ML/HR GT 03/24/25 14:30 03/28/25 21:26 1,000 ML Methylprednisolone Sodium Succinate 20 mg BID IV 03/27/25 10:00 03/30/25 10:15 20 MG Piperacillin Sod/ Tazobactam Sod 100 ml @ 25 mls/hr Q8HR IV 03/28/25 14:00 03/30/25 14:57 25 MLS/HR Vancomycin HCl 150 ml @ 150 mls/hr Q24H IV 03/29/25 10:00 03/30/25 10:18 150 MLS/HR Furosemide 60 mg DAILY IV 03/29/25 10:00 03/29/25 09:48 60 MG Acetaminophen 650 mg Q6HP PRN MD 03/29/25 14:15 03/29/25 14:46 650 MG Acetylcysteine 100 mg Q6HR NEB 03/29/25 18:00 03/30/25 18:03 100 MG Ketorolac Tromethamine 15 mg Q6HPRN PRN IV 03/29/25 17:45 04/03/25 17:44 Hold Enalaprilat 2.5 mg Q6HP PRN IV 03/30/25 12:00 03/30/25 16:55 2.5 MG Examination Constitutional: Patient extubated , following minimal commands and is alert and oriented x1 Gen - mild conjunctival pallor, no icterus, no cyanosis, no clubbing, no LAD, no edema . Skin - Patients skin is warm and dry. HEENT - normocephalic, atraumatic, moist mucous membranes. Neck - full ROM, no LAD, no JVD seen Pulmonary - B/L air entry , no crackles heard, no wheezing, no stridor. cardiovascular - variable S1,S2 heard, no added sounds, systolic murmur heard at the apex. capillary refill less than 2 seconds GI - soft abdomen. Bowel sounds normoactive Neurological - following minimal commands, delirious laboratory and microbiology Laboratory Tests 03/30/25 04:42 Test 03/30/25 04:42 Range/Units Serum Glucose 305 H 74-106 mg/dL Microbiology Date/Time Source Procedure Growth Status 03/29/25 18:30 Urine - [place]ahl [place] Urine Culture - Preliminary Resulted 03/29/25 18:14 Blood Blood Culture - Preliminary NO GROWTH AFTER 24 HOURS OF INCUBATION. Resulted 03/29/25 16:25 Bronchial Washings Gram Stain - Final Resulted 03/29/25 16:25 Bronchial Washings Respiratory Culture - Preliminary Resulted 03/23/25 05:42 Nose MRSA Screen - Final Complete Problem List/Assessment/Plan Problem List/Assessment/Plan Neurology Acute metabolic encephalopathy likely due to UTI and hypoxic respiratory failure - head CT shows no acute intracranial hemorrhage, small-vessel ischemic changes seen - on mechanical ventilation, minimal vent settings - on 03/28 patient in the morning had dilated pupils with sudden change in neurological status following which CT head without contrast was done which did not show any acute intracranial abnormality Respiratory Acute on chronic hypoxic respiratory failure COPD ? Exacerbation Pneumonia likely due to Gram +/- bacteria Pulmonary edema Small bilateral pleural effusions - on mechanical ventilation - IV Lasix - nebs q.6 hours - IV antibiotics vancomycin and Zosyn Cardiovascular Acute on chronic heart failure with reduced ejection fraction Ischemic cardiomyopathy Cardiomegaly Coronary artery disease s/p PCI with 4 ДМИТРИЙ Shock likely cardiogenic/septic - echo in August 2024 shows LVEF 25% with anterior anteroseptal anteroapical wall akinesia - new echo done on 03/27/2025 showed LVEF 20 % with the visual estimate, dilated LV, akinetic anteroseptal, RV dysfunction, biatrial enlargement [id number] aortic regurg, severe mitral regurg, [id number] tricuspid regurg - BNP elevated - diuresis - GDMT - started on losartan - on DAPT - vasopressor if required - cardiology on board Infectious disease Septic shock likely due to pneumonia/UTI Sacral ulcer stage II - urine cultures show mixed teresa , blood cultures show staph epidermidis- repeat cultures negative, sputum, wound culture pending - urinary bladder wall thickening seen on CT - IV antibiotics vancomycin and Zosyn Nephrology 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 Code status: DNR Critical care time spent excluding procedures: 63 minutes Plan discussed with Dr. Ram Plan discussed with: Daughter, Other (RN Laura) My Orders My Orders Orders - CLAUDIA SMITH Procedure Category Date Status Time Pharmacy [facility] 03/29/25 In Process Clarification: 20:53 Abg W/ Co-Ox RT 03/30/25 Logged 04:00 Chest Xray 1 View XY 03/30/25 Resulted 04:00 Enalaprilat Injection [facility]A 03/30/25 In Process (Vasotec Injection 12:00 Dietary Evaluation Review Comments: Nutrition Recommendation: 1. TF Pivot 1.5 @ 45 ml/hr x 24 hr (GOAL) along with Pro-stat 1 pk daily. Begin @ 10 ml/hr; advance by 10 ml Q4 hrs or as tolerated to 45 ml/hr x 24 hrs 2. Provide free water flushes of 30 ml Q6 hrs (120 ml total); adjust PRN 3. Syd 1 pk BID, Vit C 500mg BID, Zinc sulfate 220 mb BID x 10 days, MVI w minerals 1 tab daily 4. Monitor BMP/lytes and replete to WNL/PRN TF Provision: TF at goal to provide 1080 ml total volume, 1620 kcal (+Pro-stat 100 kcal = 1720 kcal), 101 gm pro (+15gm prostat = 116gm), 820 ml H20 (meets 100% est. kcal needs, 100% est. pro needs) Expected Outcomes/Goals: To meet at least 75% estimated needs pressure ulcer & DTI to improve FU 2-3 days Date of Service: March 30, 2025 Billing Provider: LARISA RAM MD Common Visit Codes: [id number] CARE 30-74 MIN CLAUDIA SMITH March 30, 2025 18:41 LARISA RAM MD March 31, 2025 10:28
--- NOTE | 2025-03-30 22:59 | DVHPN2 ---
Progress Note - Dictate Date Seen: March 30, 2025 Medical Necessity Reason Pt with a Central, PICC or Fol: Yes The following are medically ne: Wahl Catheter Reason for wahl catheter: Strict I&O Subjective Patient seen and examined at bedside. Remains on supplemental oxygen Overnight events reviewed. vital signs Vital Sign Date Time Temp Pulse Resp B/P (MAP) Pulse Ox O2 Delivery O2 Flow Rate FiO2 03/30/25 21:55 100.4 03/30/25 20:30 89 18 135/53 (80) 03/30/25 20:15 99 03/30/25 20:00 Nasal Cannula* 2 28 Total Intake and Output 03/29/25 03/29/25 03/30/25 15:00 23:00 07:00 Intake Total 415 ml 215.0 ml 222.0 ml Output Total 2050 ml 1400 ml Balance 415 ml -1835.0 ml -1178.0 ml medications Current Medications Medications Dose Ordered Sig/Yesica Route Start Time Stop Time Status Last Admin Dose Admin Enoxaparin Sodium 40 mg DAILY SC 03/22/25 10:00 03/30/25 10:19 40 MG Vancomycin HCl 0 ml @ 0 mls/hr UD IV 03/22/25 03:45 Aspirin 81 mg DAILY PO 03/22/25 10:00 03/29/25 09:51 81 MG Clopidogrel Bisulfate 75 mg DAILY PO 03/22/25 10:00 03/29/25 09:51 75 MG Pantoprazole Sodium 40 mg DAILY IV 03/22/25 10:00 03/30/25 10:17 40 MG Diagnostic Test (Pha) 1 strip Q6HR 03/23/25 00:00 03/30/25 18:08 1 STRIP Insulin Human Regular Q6HR SC 03/23/25 00:00 03/30/25 18:32 6 UNITS Dextrose 50 ml UD PRN IV 03/22/25 19:45 Albuterol 2.5 mg Q6HR NEB 03/23/25 12:00 03/30/25 18:03 2.5 MG Ipratropium [place] 0.5 mg Q6HR NEB 03/23/25 12:00 03/30/25 18:03 0.5 MG Enteral Nutritional Formula 1,000 ml 30ML/HR GT 03/24/25 14:30 03/28/25 21:26 1,000 ML Methylprednisolone Sodium Succinate 20 mg BID IV 03/27/25 10:00 03/30/25 21:56 20 MG Piperacillin Sod/ Tazobactam Sod 100 ml @ 25 mls/hr Q8HR IV 03/28/25 14:00 03/30/25 21:56 25 MLS/HR Vancomycin HCl 150 ml @ 150 mls/hr Q24H IV 03/29/25 10:00 03/30/25 10:18 150 MLS/HR Furosemide 60 mg DAILY IV 03/29/25 10:00 03/29/25 09:48 60 MG Acetaminophen 650 mg Q6HP PRN [place] 03/29/25 14:15 03/30/25 21:55 650 MG Acetylcysteine 100 mg Q6HR NEB 03/29/25 18:00 03/30/25 18:03 100 MG Ketorolac Tromethamine 15 mg Q6HPRN PRN IV 03/29/25 17:45 04/03/25 17:44 Hold Enalaprilat 2.5 mg Q6HP PRN IV 03/30/25 12:00 03/30/25 16:55 2.5 MG objective Gen.: Patient lying in bed in no apparent distress. On supplemental oxygen. Head: Normocephalic, atraumatic. Eyes: EOMI/PERRLA. Ears: Normal hearing. Normal anatomy. Neck/trachea: Trachea midline, supple. Nose: Normal external anatomy. Mouth: Moist mucous membranes. Chest: Decreased air entry bilaterally. No wheezing or rhonchi. Cardiovascular: Positive S1, positive S2. Regular rate and rhythm. Abdomen: Positive bowel sounds in all 4 quadrants. Soft, non-tender, non- distended. : Deferred. Rectal: Deferred. Skin: Warm, dry. Intact. Extremities: 2+ radial pulses bilaterally. No lower extremity edema. Neuro: Awake, alert, oriented x3. No gross motor or sensory deficits. Cranial nerves II through XII intact. Gait not assessed. laboratory and microbiology Laboratory Tests 03/30/25 04:42 Test 03/30/25 04:42 Range/Units Serum Glucose 305 H 74-106 mg/dL Assessment/Plan Impression: Acute hypoxic respiratory failure Mechanical ventilation, s/p extubation Acute metabolic encephalopathy Urinary tract infection line COPD Pneumonia likely due to g negative versus Gram-positive bacteria Pulmonary edema Small pleural effusion Atelectasis Events: Patient seen at bedside Remains on supplemental oxygen, 2 LPM NC Taper O2 as tolerated Head of bed elevation Aspiration precautions Continue IV steroids Continue antibiotics Incentive spirometry Off nitroglycerin drip. Continue BP control with IV Vasotec Plan for central line removal. No gag/weak cough Awaiting swallow eval. Monitor renal function Monitor electrolytes. Supplement as necessary. Potassium supplementation Monitor ins and outs S/p bronchoscopy with BAL of RML on 03/28/25 - cleared mucous plugging from L5- L10 and R4-R10 Please see separate procedure note for details. Sent for fungal and bacterial cultures. Labs and imaging reviewed. Rest of plan as noted below. Plan: S/p extubation on 03/29/25 On supplemental oxygen Titrate to keep O2 sats above 90%. Continue antibiotics. F/u cultures. IV steroids Monitor renal function due to acute kidney injury. Monitor electrolytes. Supplement as necessary. Monitor ins outs. Nutritional support. Accu-Cheks, ISS. GI/DVT prophylaxis. Patient is DNR status Condition: Critical Prognosis: Poor given multiple comorbidities. Rest of plan per hospitalist and other consultants. A total of 35 minutes of critical care time was spent reviewing the patient record, examining the patient, making a diagnostic and therapeutic plan, discussing this plan with the medical personnel, following up on diagnostic studies and following the patient for clinical stability excluding any and all procedures. At least 50% of this time was spent in direct, [id number] contact. Thank you Dr. Fernandes for allowing me to participate in this patient's care. Please do not hesitate to contact me if you have any questions or concerns. This medical document was created using an electronic medical record system with [employer] dictation system. Although this document has been carefully reviewed, there may still be some phonetic and typographical errors. These areas are purely typographical due to imperfections of the software programs, and do not reflect any compromise in the patient's medical care. Dietary Evaluation Review Comments: Nutrition Recommendation: 1. TF Pivot 1.5 @ 45 ml/hr x 24 hr (GOAL) along with Pro-stat 1 pk daily. Begin @ 10 ml/hr; advance by 10 ml Q4 hrs or as tolerated to 45 ml/hr x 24 hrs 2. Provide free water flushes of 30 ml Q6 hrs (120 ml total); adjust PRN 3. Syd 1 pk BID, Vit C 500mg BID, Zinc sulfate 220 mb BID x 10 days, MVI w minerals 1 tab daily 4. Monitor BMP/lytes and replete to WNL/PRN TF Provision: TF at goal to provide 1080 ml total volume, 1620 kcal (+Pro-stat 100 kcal = 1720 kcal), 101 gm pro (+15gm prostat = 116gm), 820 ml H20 (meets 100% est. kcal needs, 100% est. pro needs) Expected Outcomes/Goals: To meet at least 75% estimated needs pressure ulcer & DTI to improve FU 2-3 days Plan discussed with: Other (JOURDAN Sanchez) Critical Care Time(min): 35 URMILA LLOYD MD March 30, 2025 22:59
[2025-03-31] VITALS (29 sets, daily range): BP systolic 114–152; BP diastolic 46–72; PULSE 85–98; RESP 13–24; TEMP 98.1–99.9; O2SAT 95–100
[2025-03-31 05:31] LABS: Basophils # (auto) 0 10 ^3/uL (0-0.2); Basophils % (auto) 0.1 % (0.0-2.0); Eosinophils # (auto) 0 10 ^3/uL (0-0.8); Hemoglobin 11.1 g/dL (12.2-16.2); Lymphocytes # (auto) 1.1 10 ^3/uL (0.4-5.4); Nucleated Red Blood Cells % 0.1 %
[2025-03-31 05:34] LABS: Hematocrit 35.9 % (36.0-46.0); Lymphocytes % (auto) 8.4 % (10.0-50.0); Mean Corpuscular Hemoglobin 23.5 pg (28.0-32.0); Mean Corpuscular Volume 75.9 fL (80.0-100.0); Monocytes # (auto) 0.6 10 ^3/uL (0-1.3); Monocytes % (auto) 4.7 % (0.0-12.0); Neutrophils # (auto) 10.8 10 ^3/uL (1.6-8.6); Neutrophils % (auto) 86.8 % (37.0-80.0); Platelet Count (auto) 497 10^3/uL (140-450); Red Blood Cells 4.73 10^6/uL (4.0-5.20); Red Cell Distribution Width 18.2 % (11.8-14.3); White Blood Cell 12.5 10^3/uL (4.4-10.8)
[2025-03-31 05:38] LABS: Anion Gap 14 (5-15); Calcium 9.7 mg/dL (8.7-10.4)
[2025-03-31 05:43] LABS: BUN/Creatinine Ratio 32.8 (10.0-20.0)
[2025-03-31 05:50] LABS: Blood Urea Nitrogen 38 mg/dL (9-23); Carbon Dioxide 32 mmol/L (20-31); Chloride 109 mmol/L (98-107); Glucose 192 mg/dL (74-106); Magnesium 2.7 mg/dL (1.6-2.6); Potassium 3.4 mmol/L (3.5-5.1); Sodium 155 mmol/L (136-145)
[2025-03-31 06:49] LABS: Base Excess 7.7 mmol/L (-2.0-3.0)
[2025-03-31] MEDS: D5W 5% 1,000 ML IV ONE (08:21)
[2025-03-31] MEDS: POTASSIUM CHL 20MEQ/50ML 50 ML IV SCH (08:21)
--- NOTE | 2025-03-31 10:06 | MEDREC ---
[facility] ASP Intervention Section I [facility] ASP Intervention: Review courses of therapy (Patient has had fever and the WBC has been elevated. The preliminary Bronchial washing culture showed Yeast. Please consider adding an antifungal for patient) IMELDA LAYTON March 31, 2025 10:06
[2025-03-31] MEDS: POTASSIUM CHL 20MEQ/100ML 100 ML IV SCH ×2 (10:49→22:23)
[2025-03-31] MEDS: FUROSEMIDE 40 MG/4 ML VIAL IV SCH (10:51)
[2025-03-31 15:45] LABS: Potassium 3.5 mmol/L (3.5-5.1)
[2025-03-31 15:46] LABS: Anion Gap 14 (5-15); Calcium 10.2 mg/dL (8.7-10.4); Carbon Dioxide 30 mmol/L (20-31); Chloride 109 mmol/L (98-107); Sodium 153 mmol/L (136-145)
[2025-03-31 15:51] LABS: BUN/Creatinine Ratio 27.8 (10.0-20.0); Blood Urea Nitrogen 35 mg/dL (9-23); Glucose 208 mg/dL (74-106)
[2025-03-31 15:52] LABS: Magnesium 2.5 mg/dL (1.6-2.6)
[2025-03-31] MEDS: KETOROLAC TROMETH 30 MG/ML 1ML VIAL IV PRN (16:41)
--- NOTE | 2025-03-31 18:10 | DVHPNRES ---
Progress Note Date Seen: March 31, 2025 Resident Creating Document: JHCLAUDIA ELMORE RESIDENT Medical Necessity Reason Pt with a Central, PICC or Fol: Yes The following are medically ne: Wahl Catheter Reason for wahl catheter: Strict I&O Subjective Review of Systems Patient seen and examined with the bedside Patient is alert and oriented x1, following minimal commands, gag reflex minimally present Net negative balance over the last 24 hours noted to be -80 mL ABG showed a mixed metabolic and respiratory alkalosis Objective vital signs Vital Sign Date Time Temp Pulse Resp B/P (MAP) Pulse Ox O2 Delivery O2 Flow Rate FiO2 03/31/25 18:00 20 100 Nasal Cannula* 1 24 03/31/25 18:00 97 03/31/25 12:00 98.2 141/62 (88) 98.2 Total Intake and Output 03/30/25 03/30/25 03/31/25 15:00 23:00 07:00 Intake Total 537 ml 75 ml 125 ml Output Total 500 ml 350 ml Balance 537 ml -425 ml -225 ml medications Current Medications Medications Dose Ordered Sig/Yesica Route Start Time Stop Time Status Last Admin Dose Admin Enoxaparin Sodium 40 mg DAILY SC 03/22/25 10:00 03/31/25 10:48 40 MG Vancomycin HCl 0 ml @ 0 mls/hr UD IV 03/22/25 03:45 Aspirin 81 mg DAILY PO 03/22/25 10:00 03/29/25 09:51 81 MG Clopidogrel Bisulfate 75 mg DAILY PO 03/22/25 10:00 03/29/25 09:51 75 MG Pantoprazole Sodium 40 mg DAILY IV 03/22/25 10:00 03/31/25 10:47 40 MG Diagnostic Test (Pha) 1 strip Q6HR 03/23/25 00:00 03/31/25 12:33 1 STRIP Insulin Human Regular Q6HR SC 03/23/25 00:00 03/31/25 12:29 4 UNITS Dextrose 50 ml UD PRN IV 03/22/25 19:45 Albuterol 2.5 mg Q6HR NEB 03/23/25 12:00 03/31/25 12:07 2.5 MG Ipratropium [place] 0.5 mg Q6HR NEB 03/23/25 12:00 03/31/25 12:07 0.5 MG Enteral Nutritional Formula 1,000 ml 30ML/HR GT 03/24/25 14:30 03/28/25 21:26 1,000 ML Methylprednisolone Sodium Succinate 20 mg BID IV 03/27/25 10:00 03/31/25 10:47 20 MG Piperacillin Sod/ Tazobactam Sod 100 ml @ 25 mls/hr Q8HR IV 03/28/25 14:00 03/31/25 16:40 25 MLS/HR Vancomycin HCl 150 ml @ 150 mls/hr Q24H IV 03/29/25 10:00 03/31/25 11:12 150 MLS/HR Acetaminophen 650 mg Q6HP PRN [place] 03/29/25 14:15 03/30/25 21:55 650 MG Acetylcysteine 100 mg Q6HR NEB 03/29/25 18:00 03/31/25 12:07 100 MG Enalaprilat 2.5 mg Q6HP PRN IV 03/30/25 12:00 03/30/25 16:55 2.5 MG Furosemide 40 mg DAILY IV 03/31/25 10:00 03/31/25 10:51 40 MG Ketorolac Tromethamine 15 mg Q6HPRN PRN IV 03/31/25 13:15 04/05/25 13:14 03/31/25 16:41 15 MG Potassium Chloride 100 ml @ 50 mls/hr Q2H IV 03/31/25 18:15 03/31/25 22:14 UNV Examination Constitutional: Patient extubated , following minimal commands and is alert and oriented x1 Gen - mild conjunctival pallor, no icterus, no cyanosis, no clubbing, no LAD, no edema . Skin - Patients skin is warm and dry. HEENT - normocephalic, atraumatic, moist mucous membranes. Neck - full ROM, no LAD, no JVD seen Pulmonary - B/L air entry , no crackles heard, no wheezing, no stridor. cardiovascular - variable S1,S2 heard, no added sounds, systolic murmur heard at the apex. capillary refill less than 2 seconds GI - soft abdomen. Bowel sounds normoactive Neurological - following minimal commands, delirious laboratory and microbiology Laboratory Tests 03/31/25 15:10 03/31/25 04:44 Test 03/31/25 15:10 Range/Units Serum Glucose 208 H 74-106 mg/dL Microbiology Date/Time Source Procedure Growth Status 03/29/25 18:30 Urine - [place]ahl [place] Urine Culture - Preliminary Resulted 03/29/25 18:14 Blood Blood Culture - Preliminary NO GROWTH AFTER 24 HOURS OF INCUBATION. Resulted 03/29/25 16:25 Bronchial Washings Gram Stain - Final Resulted 03/29/25 16:25 Bronchial Washings Respiratory Culture - Preliminary Resulted 03/23/25 05:42 Nose MRSA Screen - Final Complete Problem List/Assessment/Plan Problem List/Assessment/Plan Neurology Acute metabolic encephalopathy likely due to UTI and hypoxic respiratory failure - head CT shows no acute intracranial hemorrhage, small-vessel ischemic changes seen - on mechanical ventilation, minimal vent settings - on 03/28 patient in the morning had dilated pupils with sudden change in neurological status following which CT head without contrast was done which did not show any acute intracranial abnormality Respiratory Acute on chronic hypoxic respiratory failure COPD ? Exacerbation Pneumonia likely due to Gram +/- bacteria Pulmonary edema Small bilateral pleural effusions - on mechanical ventilation - IV Lasix - nebs q.6 hours - IV antibiotics vancomycin and Zosyn Cardiovascular Acute on chronic heart failure with reduced ejection fraction Ischemic cardiomyopathy Cardiomegaly Coronary artery disease s/p PCI with 4 ДМИТРИЙ Shock likely cardiogenic/septic - echo in August 2024 shows LVEF 25% with anterior anteroseptal anteroapical wall akinesia - new echo done on 03/27/2025 showed LVEF 20 % with the visual estimate, dilated LV, akinetic anteroseptal, RV dysfunction, biatrial enlargement [id number] aortic regurg, severe mitral regurg, [id number] tricuspid regurg - BNP elevated - diuresis - GDMT - started on losartan - on DAPT - vasopressor if required - cardiology on board Infectious disease Septic shock likely due to pneumonia/UTI Sacral ulcer stage II - urine cultures show mixed teresa , blood cultures show staph epidermidis- repeat cultures negative, sputum, wound culture pending - urinary bladder wall thickening seen on CT - IV antibiotics vancomycin and Zosyn Nephrology LORI on CKD likely due to VMN Hypernatremia - patient on diuresis - D5W @ 50ml/hr Endocrinology Uncontrolled type 2 diabetes with hyperglycemia - HbA1c 11.5% - mild ISS GI History of SBO s/p exploratory laparotomy Currently no GI issues - started on diet with NG tube Hematology Microcytic hypochromic anemia ?Anemia of chronic disease - monitoring H&H DVT prophylaxis: Enoxaparin PUD prophylaxis: Protonix Right subclavian triple-lumen central venous catheter started on 03/23 Wahl's catheter was changed on 03/23 Patient intubated on 03/23 Patient extubated on 03/29 Goals of care discussed with the patient's daughter Yue for over 21 minutes. Code status: DNR Critical care time spent excluding procedures: 61 minutes Plan discussed with Dr. Ram Plan discussed with: Other (RN ( Padma )) My Orders My Orders Orders - CLAUDIA SMITH Procedure Category Date Status Time Abg W/ Co-Ox RT 03/31/25 Logged 04:00 D5w 5% (Dextrose 5%) PHA 03/31/25 In Process 07:30 Furosemide Injection PHA 03/31/25 In Process (Lasix Injection) 10:00 Ketorolac Injection PHA 03/31/25 In Process (Toradol Injection) 13:15 Potassium Chl PHA 03/31/25 Logged 20meq/100ml 18:15 Dietary Evaluation Review Comments: Nutrition Recommendation: 1. TF Pivot 1.5 @ 45 ml/hr x 24 hr (GOAL) along with Pro-stat 1 pk daily. Begin @ 10 ml/hr; advance by 10 ml Q4 hrs or as tolerated to 45 ml/hr x 24 hrs 2. Provide free water flushes of 30 ml Q6 hrs (120 ml total); adjust PRN 3. Syd 1 pk BID, Vit C 500mg BID, Zinc sulfate 220 mb BID x 10 days, MVI w minerals 1 tab daily 4. Monitor BMP/lytes and replete to WNL/PRN TF Provision: TF at goal to provide 1080 ml total volume, 1620 kcal (+Pro-stat 100 kcal = 1720 kcal), 101 gm pro (+15gm prostat = 116gm), 820 ml H20 (meets 100% est. kcal needs, 100% est. pro needs) Expected Outcomes/Goals: To meet at least 75% estimated needs pressure ulcer & DTI to improve FU 2-3 days Date of Service: March 31, 2025 Billing Provider: LARISA RAM MD Common Visit Codes: [id number] INP/OBS CARE(HIGH) CLAUDIA SMITH RESIDENT March 31, 2025 18:10 LARISA RAM MD April 04, 2025 12:41
[2025-03-31] MEDS ORDERED: POTASSIUM CHL 20MEQ/100ML 100 ML IV SCH (18:15)
[2025-03-31] MEDS ORDERED: Glucerna 1.2 Cal 1Liter BOTTLE GT SCH (18:30)
--- NOTE | 2025-03-31 21:48 | DVHPN2 ---
Progress Note - Dictate Date Seen: March 31, 2025 Medical Necessity Reason Pt with a Central, PICC or Fol: Yes The following are medically ne: Wahl Catheter Reason for wahl catheter: Strict I&O Subjective Patient seen and examined at bedside. Remains on supplemental oxygen Overnight events reviewed. vital signs Vital Sign Date Time Temp Pulse Resp B/P (MAP) Pulse Ox O2 Delivery O2 Flow Rate FiO2 03/31/25 20:00 130/55 03/31/25 20:00 92 03/31/25 19:05 20 99 03/31/25 18:55 Nasal Cannula* 1 24 03/31/25 12:00 98.2 98.2 Total Intake and Output 03/30/25 03/30/25 03/31/25 15:00 23:00 07:00 Intake Total 537 ml 75 ml 125 ml Output Total 500 ml 350 ml Balance 537 ml -425 ml -225 ml medications Current Medications Medications Dose Ordered Sig/Yesica Route Start Time Stop Time Status Last Admin Dose Admin Enoxaparin Sodium 40 mg DAILY SC 03/22/25 10:00 03/31/25 10:48 40 MG Vancomycin HCl 0 ml @ 0 mls/hr UD IV 03/22/25 03:45 Aspirin 81 mg DAILY PO 03/22/25 10:00 03/29/25 09:51 81 MG Clopidogrel Bisulfate 75 mg DAILY PO 03/22/25 10:00 03/29/25 09:51 75 MG Pantoprazole Sodium 40 mg DAILY IV 03/22/25 10:00 03/31/25 10:47 40 MG Diagnostic Test (Pha) 1 strip Q6HR 03/23/25 00:00 03/31/25 18:00 1 STRIP Insulin Human Regular Q6HR SC 03/23/25 00:00 03/31/25 18:43 6 UNITS Dextrose 50 ml UD PRN IV 03/22/25 19:45 Albuterol 2.5 mg Q6HR NEB 03/23/25 12:00 03/31/25 18:56 2.5 MG Ipratropium [place] 0.5 mg Q6HR NEB 03/23/25 12:00 03/31/25 18:55 0.5 MG Methylprednisolone Sodium Succinate 20 mg BID IV 03/27/25 10:00 03/31/25 10:47 20 MG Piperacillin Sod/ Tazobactam Sod 100 ml @ 25 mls/hr Q8HR IV 03/28/25 14:00 03/31/25 16:40 25 MLS/HR Vancomycin HCl 150 ml @ 150 mls/hr Q24H IV 03/29/25 10:00 03/31/25 11:12 150 MLS/HR Acetaminophen 650 mg Q6HP PRN [place] 03/29/25 14:15 03/30/25 21:55 650 MG Acetylcysteine 100 mg Q6HR NEB 03/29/25 18:00 03/31/25 18:56 100 MG Enalaprilat 2.5 mg Q6HP PRN IV 03/30/25 12:00 03/31/25 18:46 2.5 MG Furosemide 40 mg DAILY IV 03/31/25 10:00 03/31/25 10:51 40 MG Ketorolac Tromethamine 15 mg Q6HPRN PRN IV 03/31/25 13:15 04/05/25 13:14 03/31/25 16:41 15 MG Potassium Chloride 100 ml @ 50 mls/hr Q2H IV 03/31/25 18:15 03/31/25 22:14 Purified Water 150 ml Q6HR GT 04/01/25 00:00 Enteral Nutritional Formula 1,000 ml 40ML/HR GT 03/31/25 21:30 UNV objective Gen.: Patient lying in bed in no apparent distress. On supplemental oxygen. Head: Normocephalic, atraumatic. Eyes: EOMI/PERRLA. Ears: Normal hearing. Normal anatomy. Neck/trachea: Trachea midline, supple. Nose: Normal external anatomy. Mouth: Moist mucous membranes. Chest: Decreased air entry bilaterally. No wheezing or rhonchi. Cardiovascular: Positive S1, positive S2. Regular rate and rhythm. Abdomen: Positive bowel sounds in all 4 quadrants. Soft, non-tender, non- distended. : Deferred. Rectal: Deferred. Skin: Warm, dry. Intact. Extremities: 2+ radial pulses bilaterally. No lower extremity edema. Neuro: Awake, alert, oriented x3. No gross motor or sensory deficits. Cranial nerves II through XII intact. Gait not assessed. laboratory and microbiology Laboratory Tests 03/31/25 15:10 03/31/25 04:44 Test 03/31/25 15:10 Range/Units Serum Glucose 208 H 74-106 mg/dL Assessment/Plan Impression: Acute hypoxic respiratory failure Acute metabolic encephalopathy Urinary tract infection line COPD Pneumonia likely due to g negative versus Gram-positive bacteria Pulmonary edema Small pleural effusion Atelectasis Events: Patient seen at bedside Remains on supplemental oxygen, 0.5 LPM NC Taper O2 as tolerated Improved O2 requirements Head of bed elevation Aspiration precautions Continue IV steroids - taper as tolerated Continue antibiotics Continue bronchodilators Incentive spirometry Off nitroglycerin drip. Continue BP control with IV Vasotec Plan for central line removal. No gag/weak cough Swallow eval. Diurese with Lasix Monitor renal function Monitor electrolytes. Supplement as necessary. Potassium supplementation Sodium 155 Started IV fluids with D5W Monitor ins and outs Wound care DVT prophylaxis - Lovenox S/p bronchoscopy with BAL of RML on 03/28/25 - cleared mucous plugging from L5- L10 and R4-R10 Please see separate procedure note for details. Sent for fungal and bacterial cultures. Labs and imaging reviewed. Rest of plan as noted below. Plan: S/p extubation on 03/29/25 On supplemental oxygen Titrate to keep O2 sats above 90%. Continue antibiotics. F/u cultures. IV steroids Monitor renal function due to acute kidney injury. Monitor electrolytes. Supplement as necessary. Monitor ins outs. Nutritional support. Accu-Cheks, ISS. GI/DVT prophylaxis. Patient is DNR status Condition: Critical Prognosis: Poor given multiple comorbidities. Rest of plan per hospitalist and other consultants. A total of 35 minutes of critical care time was spent reviewing the patient record, examining the patient, making a diagnostic and therapeutic plan, discussing this plan with the medical personnel, following up on diagnostic studies and following the patient for clinical stability excluding any and all procedures. At least 50% of this time was spent in direct, [id number] contact. Thank you Dr. Fernandes for allowing me to participate in this patient's care. Please do not hesitate to contact me if you have any questions or concerns. This medical document was created using an electronic medical record system with [employer] system. Although this document has been carefully reviewed, there may still be some phonetic and typographical errors. These areas are purely typographical due to imperfections of the software programs, and do not reflect any compromise in the patient's medical care. Dietary Evaluation Review Comments: Nutrition Recommendation: 1. TF Pivot 1.5 @ 45 ml/hr x 24 hr (GOAL) along with Pro-stat 1 pk daily. Begin @ 10 ml/hr; advance by 10 ml Q4 hrs or as tolerated to 45 ml/hr x 24 hrs 2. Provide free water flushes of 30 ml Q6 hrs (120 ml total); adjust PRN 3. Syd 1 pk BID, Vit C 500mg BID, Zinc sulfate 220 mb BID x 10 days, MVI w minerals 1 tab daily 4. Monitor BMP/lytes and replete to WNL/PRN TF Provision: TF at goal to provide 1080 ml total volume, 1620 kcal (+Pro-stat 100 kcal = 1720 kcal), 101 gm pro (+15gm prostat = 116gm), 820 ml H20 (meets 100% est. kcal needs, 100% est. pro needs) Expected Outcomes/Goals: To meet at least 75% estimated needs pressure ulcer & DTI to improve FU 2-3 days Plan discussed with: Other (JOURDAN Rouse) Critical Care Time(min): 35 URMILA LLOYD MD March 31, 2025 21:48
[2025-04-01] VITALS (41 sets, daily range): BP systolic 106–154; BP diastolic 44–82; PULSE 63–98; RESP 13–33; TEMP 98–98.9; O2SAT 89–100
--- NOTE | 2025-04-01 00:03 | DVH ---
CHEST RADIOGRAPH Indication: VERIFY NGT PLACEMENT Technique: Single frontal view of the chest was obtained Comparison: XY CHEST XRAY 1 VIEW on DOS: 03/30/25, XY CHEST XRAY 1 VIEW on DOS: 03/29/25, XY CHEST XRAY 1 VIEW on DOS: 03/28/25 Findings/ IMPRESSION: Limited evaluation due to patient positioning. Right subclavian CVC projecting terminating in the SVC . Left-sided cardiac device with intact leads. Enteric tube side port and tip projecting below the GE junction in proper position. No definitive evidence of endotracheal tube. If there is an endotrachea l tube placed, consider repeat imaging with patient in better positioning.
[2025-04-01] MEDS: Glucerna 1.2 Cal 1Liter BOTTLE GT SCH (02:01)
[2025-04-01 06:56] LABS: Basophils # (auto) 0 10 ^3/uL (0-0.2); Eosinophils # (auto) 0 10 ^3/uL (0-0.8); Hemoglobin 11.2 g/dL (12.2-16.2); Monocytes # (auto) 0.5 10 ^3/uL (0-1.3); Red Cell Distribution Width 18.3 % (11.8-14.3)
[2025-04-01 06:59] LABS: Potassium 3.7 mmol/L (3.5-5.1)
[2025-04-01 07:00] LABS: Anion Gap 13 (5-15); Basophils % (auto) 0.1 % (0.0-2.0); Calcium 10.2 mg/dL (8.7-10.4); Carbon Dioxide 28 mmol/L (20-31); Hematocrit 35.5 % (36.0-46.0); Lymphocytes # (auto) 1.3 10 ^3/uL (0.4-5.4); Lymphocytes % (auto) 9.9 % (10.0-50.0); Mean Corpuscular Hemoglobin 23.9 pg (28.0-32.0); Mean Corpuscular Hgb Conc. 31.4 g/dL (32.0-36.0); Mean Corpuscular Volume 76.2 fL (80.0-100.0); Monocytes % (auto) 4.1 % (0.0-12.0); Neutrophils # (auto) 11.2 10 ^3/uL (1.6-8.6); Neutrophils % (auto) 85.9 % (37.0-80.0); Platelet Count (auto) 453 10^3/uL (140-450); Red Blood Cells 4.66 10^6/uL (4.0-5.20); White Blood Cell 13.1 10^3/uL (4.4-10.8)
[2025-04-01 07:06] LABS: BUN/Creatinine Ratio 31.7 (10.0-20.0); Magnesium 2.5 mg/dL (1.6-2.6)
[2025-04-01 07:07] LABS: Blood Urea Nitrogen 46 mg/dL (9-23); Chloride 110 mmol/L (98-107); Glucose 286 mg/dL (74-106); Sodium 151 mmol/L (136-145)
[2025-04-01] MEDS ORDERED: ACETAMINOPHEN 325 MG TAB PO PRN (08:15)
[2025-04-01] MEDS: D5W 5% 500 ML IV ONE ×2 (08:15→19:00)
[2025-04-01 08:46] LABS: Base Excess 5.3 mmol/L (-2.0-3.0)
[2025-04-01] MEDS: cefTRIAXone 1GM/50ML D5W 50 ML IV SCH (09:10)
[2025-04-01] MEDS: POTASSIUM CHL 20MEQ/100ML 100 ML IV SCH (09:11)
[2025-04-01] MEDS: LOSARTAN POTASSIUM 50 MG TAB NG SCH (09:13)
[2025-04-01] MEDS: CARVEDILOL 3.125 MG TAB NG SCH (09:13)
[2025-04-01] MEDS: EMPAGLIFLOZIN 10 MG TAB NG SCH (09:13)
[2025-04-01] MEDS: INSULIN LANTUS (GLARGINE) 1 /0.01ml (100units/ml) SC ONE (11:35)
[2025-04-01 15:43] LABS: Base Excess 4.5 mmol/L (-2.0-3.0)
[2025-04-01 15:52] LABS: Anion Gap 16 (5-15); Carbon Dioxide 25 mmol/L (20-31)
[2025-04-01 15:53] LABS: Calcium 9.5 mg/dL (8.7-10.4)
[2025-04-01 15:54] LABS: Chloride 112 mmol/L (98-107); Sodium 153 mmol/L (136-145)
[2025-04-01 15:58] LABS: BUN/Creatinine Ratio 31.2 (10.0-20.0)
[2025-04-01 15:59] LABS: Blood Urea Nitrogen 48 mg/dL (9-23); Glucose 232 mg/dL (74-106)
--- NOTE | 2025-04-01 16:20 | DVH ---
EXAM: CT HEAD WITHOUT CONTRAST INDICATION: aloc TECHNIQUE: CT of the head without intravenous contrast. Radiation Dose Information: CT Dose: CTDI volume is 53.6 mGy. Dose-length product is 1056.35 mGy*cm The dose indicators for CT are the volume Computed Tomography (CT) Dose Index (CTDIvol) and the Dose Length Product (DLP), and are measured in units of mGy and mGy-cm, respectively. These indicators are not patient dose, but values generated from the CT scanner acquisition factors. The report includes radiation exposure data for exposures received during this examination. COMPARISON: CT HEAD WITHOUT CONTRAST on DOS: 03/28/25, CT HEAD WITHOUT CONTRAST on DOS: 03/22/25, CT HEA D WITHOUT CONTRAST on DOS: 02/12/24 FINDINGS: There is no evidence of acute intracranial hemorrhage, extra-axial collection, mass effect, midline s hift, herniation or hydrocephalus. The ventricles, sulci and cisterns are age appropriate. The granados-white differentiation is intact. Patchy periventricular and subcortical white matter hypoattenuation is nonspecific but may be related to small vessel ischemic disease. The visualized paranasal sinuses and mastoid air cells are clear. The surrounding soft tissues and osseous structures are unremarkable. IMPRESSION: 1. No acute intracranial abnormality.
[2025-04-01] MEDS ORDERED: DEXTROSE (50%) 50ML SYRG IV PRN (19:00)
--- NOTE | 2025-04-01 19:28 | DVHPN2 ---
Progress Note - Dictate Date Seen: April 01, 2025 Medical Necessity Reason Pt with a Central, PICC or Fol: Yes The following are medically ne: Wahl Catheter Reason for wahl catheter: Strict I&O Subjective Patient seen and examined at bedside. Remains on supplemental oxygen Overnight events reviewed. vital signs Vital Sign Date Time Temp Pulse Resp B/P (MAP) Pulse Ox O2 Delivery O2 Flow Rate FiO2 04/01/25 18:53 95 22 100 04/01/25 18:45 98.5 98.5 04/01/25 18:43 Room Air* 0 21 Total Intake and Output 03/31/25 03/31/25 04/01/25 15:00 23:00 07:00 Intake Total 650 ml 400 ml 785 ml Output Total 1550 ml 200 ml Balance 650 ml -1150 ml 585 ml medications Current Medications Medications Dose Ordered Sig/Yesica Route Start Time Stop Time Status Last Admin Dose Admin Enoxaparin Sodium 40 mg DAILY SC 03/22/25 10:00 04/01/25 08:35 40 MG Aspirin 81 mg DAILY PO 03/22/25 10:00 04/01/25 08:35 81 MG Clopidogrel Bisulfate 75 mg DAILY PO 03/22/25 10:00 04/01/25 08:35 75 MG Pantoprazole Sodium 40 mg DAILY IV 03/22/25 10:00 04/01/25 08:34 40 MG Albuterol 2.5 mg Q6HR NEB 03/23/25 12:00 04/01/25 18:43 2.5 MG Ipratropium [place] 0.5 mg Q6HR NEB 03/23/25 12:00 04/01/25 18:43 0.5 MG Methylprednisolone Sodium Succinate 20 mg BID IV 03/27/25 10:00 04/01/25 08:34 20 MG Acetylcysteine 100 mg Q6HR NEB 03/29/25 18:00 04/01/25 18:43 100 MG Furosemide 40 mg DAILY IV 03/31/25 10:00 Hold 04/01/25 08:35 40 MG Enteral Nutritional Formula 1,000 ml 40ML/HR GT 03/31/25 21:30 04/01/25 02:01 1,000 ML Acetaminophen 650 mg Q6HP PRN PO 04/01/25 08:15 Carvedilol 6.25 mg Q12HR NG 04/01/25 10:00 04/01/25 09:13 6.25 MG Losartan Potassium 50 mg DAILY NG 04/01/25 10:00 04/01/25 09:13 50 MG Empaglifozin 10 mg DAILY NG 04/01/25 10:00 04/01/25 09:13 10 MG Ceftriaxone Sodium 50 ml @ 100 mls/hr DAILY@09 IV 04/01/25 09:00 04/01/25 09:10 100 MLS/HR Diagnostic Test (Pha) 1 strip IQ4HR 04/01/25 20:00 Insulin Human Regular IQ4HR SC 04/01/25 20:00 Dextrose 50 ml UD PRN IV 04/01/25 19:00 Purified Water 200 ml Q6HR GT 04/02/25 00:00 Insulin Glargine 12 units DAILY@1000 SC 04/02/25 10:00 objective Gen.: Patient lying in bed in no apparent distress. On supplemental oxygen. Head: Normocephalic, atraumatic. Eyes: EOMI/PERRLA. Ears: Normal hearing. Normal anatomy. Neck/trachea: Trachea midline, supple. Nose: Normal external anatomy. Mouth: Moist mucous membranes. Chest: Decreased air entry bilaterally. No wheezing or rhonchi. Cardiovascular: Positive S1, positive S2. Regular rate and rhythm. Abdomen: Positive bowel sounds in all 4 quadrants. Soft, non-tender, non- distended. : Deferred. Rectal: Deferred. Skin: Warm, dry. Intact. Extremities: 2+ radial pulses bilaterally. No lower extremity edema. Neuro: Altered. Responding to tactile/verbal stimuli. No gross motor or sensory deficits. Cranial nerves II through XII intact. Gait not assessed. laboratory and microbiology Laboratory Tests 04/01/25 15:32 04/01/25 04:24 Test 04/01/25 15:32 Range/Units Serum Glucose 232 H 74-106 mg/dL Assessment/Plan Impression: Acute hypoxic respiratory failure Acute metabolic encephalopathy Urinary tract infection line COPD Pneumonia likely due to g negative versus Gram-positive bacteria Pulmonary edema Small pleural effusion Atelectasis Events: Patient seen at bedside Remains on supplemental oxygen, 2 LPM NC Taper O2 as tolerated Patient is more altered Responding to tactile/verbal stimuli Obtain STAT ABG STAT CT head to rule out ICH/stroke. Head of bed elevation Aspiration precautions D5W bolus given Continue IV steroids - taper as tolerated Continue antibiotics Continue bronchodilators Incentive spirometry Continue blood pressure control No gag/weak cough Swallow eval. Diurese with Lasix Monitor renal function Monitor electrolytes. Supplement as necessary. Potassium supplementation Monitor ins and outs Wound care DVT prophylaxis - Lovenox S/p bronchoscopy with BAL of RML on 03/28/25 - cleared mucous plugging from L5- L10 and R4-R10 Please see separate procedure note for details. Sent for fungal and bacterial cultures. Labs and imaging reviewed. Rest of plan as noted below. Plan: S/p extubation on 03/29/25 On supplemental oxygen Titrate to keep O2 sats above 90%. Continue antibiotics. F/u cultures. IV steroids Monitor renal function due to acute kidney injury. Monitor electrolytes. Supplement as necessary. Monitor ins outs. Nutritional support. Accu-Cheks, ISS. GI/DVT prophylaxis. Patient is DNR status Condition: Critical Prognosis: Poor given multiple comorbidities. Rest of plan per hospitalist and other consultants. A total of 35 minutes of critical care time was spent reviewing the patient record, examining the patient, making a diagnostic and therapeutic plan, discussing this plan with the medical personnel, following up on diagnostic studies and following the patient for clinical stability excluding any and all procedures. At least 50% of this time was spent in direct, [id number] contact. Thank you Dr. Fernandes for allowing me to participate in this patient's care. Please do not hesitate to contact me if you have any questions or concerns. This medical document was created using an electronic medical record system with [employer] Direct dictation system. Although this document has been carefully reviewed, there may still be some phonetic and typographical errors. These areas are purely typographical due to imperfections of the software programs, and do not reflect any compromise in the patient's medical care. Dietary Evaluation Review Comments: Nutrition Recommendation: 1. TF Pivot 1.5 @ 45 ml/hr x 24 hr (GOAL) along with Pro-stat 1 pk daily. Begin @ 10 ml/hr; advance by 10 ml Q4 hrs or as tolerated to 45 ml/hr x 24 hrs 2. Provide free water flushes of 30 ml Q6 hrs (120 ml total); adjust PRN 3. Syd 1 pk BID, Vit C 500mg BID, Zinc sulfate 220 mb BID x 10 days, MVI w minerals 1 tab daily 4. Monitor BMP/lytes and replete to WNL/PRN TF Provision: TF at goal to provide 1080 ml total volume, 1620 kcal (+Pro-stat 100 kcal = 1720 kcal), 101 gm pro (+15gm prostat = 116gm), 820 ml H20 (meets 100% est. kcal needs, 100% est. pro needs) Expected Outcomes/Goals: To meet at least 75% estimated needs pressure ulcer & DTI to improve FU 2-3 days Plan discussed with: Other (JOURDAN Dao) Critical Care Time(min): 35 URMILA LLOYD MD April 01, 2025 19:28
--- NOTE | 2025-04-01 19:54 | DVHPNRES ---
Progress Note Date Seen: April 01, 2025 Resident Creating Document: JHPortiaJCLAUDIA Cueto RESIDENT Medical Necessity Reason Pt with a Central, PICC or Fol: Yes The following are medically ne: Wahl Catheter Reason for wahl catheter: Strict I&O Subjective Review of Systems Patient seen and examined with the bedside Patient is alert and oriented x1, following minimal commands, gag reflex minimally present Net negative balance over the last 24 hours noted to be -80 mL ABG showed a mixed metabolic and respiratory alkalosis Objective vital signs Vital Sign Date Time Temp Pulse Resp B/P (MAP) Pulse Ox O2 Delivery O2 Flow Rate FiO2 04/01/25 18:53 95 22 100 04/01/25 18:45 98.5 98.5 04/01/25 18:43 Room Air* 0 21 Total Intake and Output 03/31/25 03/31/25 04/01/25 15:00 23:00 07:00 Intake Total 650 ml 400 ml 785 ml Output Total 1550 ml 200 ml Balance 650 ml -1150 ml 585 ml medications Current Medications Medications Dose Ordered Sig/Yesica Route Start Time Stop Time Status Last Admin Dose Admin Enoxaparin Sodium 40 mg DAILY SC 03/22/25 10:00 04/01/25 08:35 40 MG Aspirin 81 mg DAILY PO 03/22/25 10:00 04/01/25 08:35 81 MG Clopidogrel Bisulfate 75 mg DAILY PO 03/22/25 10:00 04/01/25 08:35 75 MG Pantoprazole Sodium 40 mg DAILY IV 03/22/25 10:00 04/01/25 08:34 40 MG Albuterol 2.5 mg Q6HR NEB 03/23/25 12:00 04/01/25 18:43 2.5 MG Ipratropium [place] 0.5 mg Q6HR NEB 03/23/25 12:00 04/01/25 18:43 0.5 MG Methylprednisolone Sodium Succinate 20 mg BID IV 03/27/25 10:00 04/01/25 08:34 20 MG Acetylcysteine 100 mg Q6HR NEB 03/29/25 18:00 04/01/25 18:43 100 MG Furosemide 40 mg DAILY IV 03/31/25 10:00 Hold 04/01/25 08:35 40 MG Enteral Nutritional Formula 1,000 ml 40ML/HR GT 03/31/25 21:30 04/01/25 02:01 1,000 ML Acetaminophen 650 mg Q6HP PRN PO 04/01/25 08:15 Carvedilol 6.25 mg Q12HR NG 04/01/25 10:00 04/01/25 09:13 6.25 MG Losartan Potassium 50 mg DAILY NG 04/01/25 10:00 04/01/25 09:13 50 MG Empaglifozin 10 mg DAILY NG 04/01/25 10:00 04/01/25 09:13 10 MG Ceftriaxone Sodium 50 ml @ 100 mls/hr DAILY@09 IV 04/01/25 09:00 04/01/25 09:10 100 MLS/HR Diagnostic Test (Pha) 1 strip IQ4HR 04/01/25 20:00 Insulin Human Regular IQ4HR SC 04/01/25 20:00 Dextrose 50 ml UD PRN IV 04/01/25 19:00 Purified Water 200 ml Q6HR GT 04/02/25 00:00 Insulin Glargine 12 units DAILY@1000 SC 04/02/25 10:00 Examination Constitutional: Patient extubated , following minimal commands and is alert and oriented x1 Gen - mild conjunctival pallor, no icterus, no cyanosis, no clubbing, no LAD, no edema . Skin - Patients skin is warm and dry. HEENT - normocephalic, atraumatic, moist mucous membranes. Neck - full ROM, no LAD, no JVD seen Pulmonary - B/L air entry , no crackles heard, no wheezing, no stridor. cardiovascular - variable S1,S2 heard, no added sounds, systolic murmur heard at the apex. capillary refill less than 2 seconds GI - soft abdomen. Bowel sounds normoactive Neurological - following minimal commands, delirious laboratory and microbiology Laboratory Tests 04/01/25 15:32 04/01/25 04:24 Test 04/01/25 15:32 Range/Units Serum Glucose 232 H 74-106 mg/dL Microbiology Date/Time Source Procedure Growth Status 03/29/25 18:30 Urine - Wahl [place] Urine Culture - Final Complete 03/29/25 18:14 Blood Blood Culture - Preliminary NO GROWTH AFTER 72 HOURS OF INCUBATION. Resulted 03/29/25 16:25 Bronchial Washings Gram Stain - Final Resulted 03/29/25 16:25 Bronchial Washings Respiratory Culture - Preliminary Resulted 03/23/25 05:42 Nose MRSA Screen - Final Complete Problem List/Assessment/Plan Problem List/Assessment/Plan Neurology Acute metabolic encephalopathy likely due to UTI and hypoxic respiratory failure - head CT shows no acute intracranial hemorrhage, small-vessel ischemic changes seen - on mechanical ventilation, minimal vent settings - on 03/28 patient in the morning had dilated pupils with sudden change in neurological status following which CT head without contrast was done which did not show any acute intracranial abnormality - 04/[address] done due to worsening mental status, did not show any intracranial abnormality Respiratory Acute on chronic hypoxic respiratory failure COPD ? Exacerbation Pneumonia likely due to Gram +/- bacteria Pulmonary edema Small bilateral pleural effusions - on mechanical ventilation - IV Lasix - nebs q.6 hours - IV antibiotics downgraded to ceftriaxone Cardiovascular Acute on chronic heart failure with reduced ejection fraction Ischemic cardiomyopathy Cardiomegaly Coronary artery disease s/p PCI with 4 ДМИТРИЙ Shock likely cardiogenic/septic - echo in August 2024 shows LVEF 25% with anterior anteroseptal anteroapical wall akinesia - new echo done on 03/27/2025 showed LVEF 20 % with the visual estimate, dilated LV, akinetic anteroseptal, RV dysfunction, biatrial enlargement [id number] aortic regurg, severe mitral regurg, [id number] tricuspid regurg - BNP elevated - diuresis - GDMT - started on losartan - on DAPT - vasopressor if required - cardiology on board Infectious disease Septic shock likely due to pneumonia/UTI Sacral ulcer stage II - urine cultures show mixed teresa , blood cultures show staph epidermidis- repeat cultures negative, sputum, wound culture pending - urinary bladder wall thickening seen on CT - IV antibiotics ceftriaxone Nephrology LORI on CKD likely due to VMN Hypernatremia - patient on diuresis - D5W @ 50ml/hr - free water 200ml qhr Endocrinology Uncontrolled type 2 diabetes with hyperglycemia - HbA1c 11.5% - mild ISS GI History of SBO s/p exploratory laparotomy Currently no GI issues - started on diet with NG tube Hematology Microcytic hypochromic anemia ?Anemia of chronic disease - monitoring H&H NG tube feedings- glucerna DVT prophylaxis: Enoxaparin PUD prophylaxis: Protonix Right subclavian triple-lumen central venous catheter started on 03/23 Wahl's catheter was changed on 03/23 Patient intubated on 03/23 Patient extubated on 03/29 patient's daughter Yue was tried to be reached but we could get an answer today. Code status: DNR Critical care time spent excluding procedures: 59 minutes Plan discussed with Dr. Moscoso Plan discussed with: Other (RN ( Feliberto )) My Orders My Orders Orders - CLAUDIA SMITH RESIDENT Procedure Category Date Status Time Chest Portable XY 03/31/25 Resulted 21:20 Abg W/ Co-Ox RT 04/01/25 Logged 04:00 Nutritional PHA 03/31/25 In Process Supplements (Glucerna 21:30 Acetaminophen Tablet PHA 04/01/25 In Process (Tylenol Tablet) 08:15 Carvedilol Tablet PHA 04/01/25 In Process (Coreg Tablet) 10:00 Losartan Tablet PHA 04/01/25 In Process (Cozaar Tablet) 10:00 Empagliflozin PHA 04/01/25 In Process (Jardiance) 10:00 Ceftriaxone 1gm/50ml PHA 04/01/25 In Process D5w (Rocephin) 09:00 Insert Midline ORDERS 04/01/25 Transmitted 10:33 Transfer Orders XFER 04/01/25 Transmitted 10:52 D/C Triple Lumen ORDERS 04/01/25 Transmitted 11:58 Abg W/ Co-Ox RT 04/01/25 Logged 15:[address] 04/01/25 Resulted 15:08 Npo Except For DIANA 04/01/25 In Process Medications 18:39 Glucose Blood PHA 04/01/25 In Process (Accu-Chek Comfort 20:00 Insulin R (Human) PHA 04/01/25 In Process (Insulin R) 20:00 Dextrose 50% Syringe PHA 04/01/25 In Process 19:00 Free Water PHA 04/02/25 In Process 00:00 D5w 5% (Dextrose 5%) PHA 04/01/25 In Process 19:00 Basic Metabolic Panel LAB 04/02/25 Verified 04:00 Complete Blood Count LAB 04/02/25 Verified 04:00 Magnesium LAB 04/02/25 Verified 04:00 Abg W/ Co-Ox RT 04/02/25 Logged 04:00 Insulin Lantus PHA 04/02/25 In Process (Glargine) (Lantus) 10:00 Dietary Evaluation Review Comments: Nutrition Recommendation: 1. TF Pivot 1.5 @ 45 ml/hr x 24 hr (GOAL) along with Pro-stat 1 pk daily. Begin @ 10 ml/hr; advance by 10 ml Q4 hrs or as tolerated to 45 ml/hr x 24 hrs 2. Provide free water flushes of 30 ml Q6 hrs (120 ml total); adjust PRN 3. Syd 1 pk BID, Vit C 500mg BID, Zinc sulfate 220 mb BID x 10 days, MVI w minerals 1 tab daily 4. Monitor BMP/lytes and replete to WNL/PRN TF Provision: TF at goal to provide 1080 ml total volume, 1620 kcal (+Pro-stat 100 kcal = 1720 kcal), 101 gm pro (+15gm prostat = 116gm), 820 ml H20 (meets 100% est. kcal needs, 100% est. pro needs) Expected Outcomes/Goals: To meet at least 75% estimated needs pressure ulcer & DTI to improve FU 2-3 days Date of Service: April 01, 2025 Billing Provider: KARLA MOSCOSO MD Common Visit Codes: [id number] CARE 30-74 MIN CLAUDIA SMITH RESIDENT April 01, 2025 19:54 KARLA MOSCOSO MD April 01, 2025 22:05
[2025-04-01] MEDS: InsuLIN REG 1unit/0.01ml Soln (100units/ml) SC SCH (22:26)
[2025-04-01] MEDS: FREE WATER GT SCH ×2 (22:28)
[2025-04-01] MEDS: ACCU-CHEK COMFORT CURVE STRIP VI SCH (22:45)
[2025-04-02] VITALS (22 sets, daily range): BP systolic 78–147; BP diastolic 35–74; PULSE 77–97; RESP 0–41; TEMP 98.7–99.7; O2SAT 89–100
[2025-04-02] MEDS ORDERED: FREE WATER GT SCH
[2025-04-02 05:19] LABS: Basophils # (auto) 0 10 ^3/uL (0-0.2); Eosinophils # (auto) 0 10 ^3/uL (0-0.8); Hemoglobin 12.8 g/dL (12.2-16.2)
[2025-04-02 05:21] LABS: Basophils % (auto) 0.3 % (0.0-2.0); Eosinophils % (auto) 0.1 % (0.0-7.0); Hematocrit 41.6 % (36.0-46.0); Lymphocytes # (auto) 1.1 10 ^3/uL (0.4-5.4); Lymphocytes % (auto) 7.1 % (10.0-50.0); Mean Corpuscular Hemoglobin 23.8 pg (28.0-32.0); Mean Corpuscular Hgb Conc. 30.9 g/dL (32.0-36.0); Mean Corpuscular Volume 77.1 fL (80.0-100.0); Monocytes # (auto) 0.3 10 ^3/uL (0-1.3); Monocytes % (auto) 2.2 % (0.0-12.0); Neutrophils # (auto) 14.4 10 ^3/uL (1.6-8.6); Neutrophils % (auto) 90.3 % (37.0-80.0); Nucleated Red Blood Cells % 0.2 %; Platelet Count (auto) 462 10^3/uL (140-450); Red Blood Cells 5.39 10^6/uL (4.0-5.20); Red Cell Distribution Width 18.9 % (11.8-14.3); White Blood Cell 15.9 10^3/uL (4.4-10.8)
[2025-04-02 05:27] LABS: Potassium 4.1 mmol/L (3.5-5.1)
[2025-04-02 05:28] LABS: Anion Gap 13 (5-15); Calcium 10.1 mg/dL (8.7-10.4); Carbon Dioxide 26 mmol/L (20-31)
[2025-04-02 05:33] LABS: BUN/Creatinine Ratio 36.2 (10.0-20.0)
[2025-04-02 05:36] LABS: Blood Urea Nitrogen 59 mg/dL (9-23); Chloride 115 mmol/L (98-107); Glucose 308 mg/dL (74-106); Magnesium 2.8 mg/dL (1.6-2.6); Sodium 154 mmol/L (136-145)
[2025-04-02 07:17] LABS: Base Excess 3.1 mmol/L (-2.0-3.0)
[2025-04-02] MEDS: INSULIN LANTUS (GLARGINE) 1 /0.01ml (100units/ml) SC SCH (11:16)
--- NOTE | 2025-04-02 13:41 | DVHDS2 ---
Discharge Summary Date of Admission March 22, 2025 at 03:35 Date of Discharge: April 02, 2025 Admitting Diagnosis Altered level of consciousness Metabolic encephalopathy Sepsis and septic shock Respiratory failure COPD exacerbation Coronary artery disease with history of PCI Heart failure Diabetes/uncontrolled Labs/Diagnostic Data: Laboratory Results Test 04/02/25 11:10 04/02/25 07:09 04/02/25 05:10 04/01/25 08:30 POC Glucose 262 mg/dl (70-106) Blood Gas Specimen Type Arterial Blood Gas Sample Site Left radial Blood Gas Patient Temperature 37.0 Arterial Blood Date Drawn [id number] Arterial Blood pH 7.491 (7.350-7.450) Arterial Blood Partial Pressure CO2 35.0 mmHg (32.0-45.0) Arterial Blood Partial Pressure O2 104.6 mmHg (83.0-108.0) Arterial Blood HCO3 26.1 mmol/L (21.0-28.0) Arterial Blood Oxygen Saturation 97.5 % (94.0-98.0) Arterial Blood Base Excess 3.1 mmol/L (-2.0-3.0) Arterial Blood Oxyhemoglobin 96.3 % (94.0-98.0) Arterial Blood Carboxyhemoglobin 0.9 % (0.5-1.5) Arterial Blood Methemoglobin 0.3 % (0.0-1.5) Moustapha Test Yes Blood Gas Total Hemoglobin 13.70 g/dL (12.0-16.0) Blood Gas Liter Flow 2.00 Blood Gas Modality Nasal cannula FiO2 % 28.0 White Blood Count 15.9 10^3/uL (4.4-10.8) Red Blood Count 5.39 10^6/uL (4.0-5.20) Hemoglobin 12.8 g/dL (12.2-16.2) Hematocrit 41.6 % (36.0-46.0) Mean Corpuscular Volume 77.1 fL (80.0-100.0) Mean Corpuscular Hemoglobin 23.8 pg (28.0-32.0) Mean Corpuscular Hemoglobin Concent 30.9 g/dL (32.0-36.0) Red Cell Distribution Width 18.9 % (11.8-14.3) Platelet Count 462 10^3/uL (140-450) Mean Platelet Volume 7.7 fL (6.9-10.8) Neutrophils (%) (Auto) 90.3 % (37.0-80.0) Lymphocytes (%) (Auto) 7.1 % (10.0-50.0) Monocytes (%) (Auto) 2.2 % (0.0-12.0) Eosinophils (%) (Auto) 0.1 % (0.0-7.0) Basophils (%) (Auto) 0.3 % (0.0-2.0) Neutrophils # (Auto) 14.4 10 ^3/uL (1.6-8.6) Lymphocytes # (Auto) 1.1 10 ^3/uL (0.4-5.4) Monocytes # (Auto) 0.3 10 ^3/uL (0-1.3) Eosinophils # (Auto) 0 10 ^3/uL (0-0.8) Basophils # (Auto) 0 10 ^3/uL (0-0.2) Nucleated Red Blood Cells 0.2 % Sodium Level 154 mmol/L (136-145) Potassium Level 4.1 mmol/L (3.5-5.1) Chloride Level 115 mmol/L (98-107) Carbon Dioxide Level 26 mmol/L (20-31) Anion Gap 13 (5-15) Blood Urea Nitrogen 59 mg/dL (9-23) Creatinine 1.63 mg/dL (0.550-1.02) Glomerular Filtration Rate Calc 34 mL/min (>90) BUN/Creatinine Ratio 36.2 (10.0-20.0) Serum Glucose 308 mg/dL (74-106) Calcium Level 10.1 mg/dL (8.7-10.4) Magnesium Level 2.8 mg/dL (1.6-2.6) Blood Gas Critical Value Read Back Yes Blood Gas Notified Whom Dr. johnston jhajj Blood Gas Notified Time [id number] Blood Gas Notified By Test 03/31/25 09:39 03/29/25 18:30 03/29/25 10:51 03/29/25 05:25 Vancomycin Level Trough 18.1 ug/mL (5-10) Urine Color Light-yellow (Yellow) Urine Clarity Clear (Clear) Urine pH 6.5 (5.0-9.0) Urine Specific [place] 1.016 (1.001-1.035) Urine Protein 1+ (Negative) Urine Ketones Negative (Negative) Urine Blood 1+ /uL (Negative) Urine Nitrite Negative (Negative) Urine Bilirubin Negative (Negative) Urine Urobilinogen Normal mg/dL (Negative) Urine Leukocyte Esterase Negative /uL (Negative) Urine RBC 2 /hpf (0 - 4) Urine Microscopic WBC < 1 /HPF (0-5) Urine Squamous Epithelial Cells Few /hpf (<5) Urine Bacteria None seen /hpf (None Seen) Urine Hyaline Casts Few /lpf (0 - 2) Urine Glucose Normal mg/dL (Normal) Blood Gas Spontaneous Rate 16 Blood Gas Tidal Volume 400.0 Blood Gas Pressure Support 8 Blood Gas PEEP or CPAP 5.0 Blood Gas Set Respiration Rate 20.0 Test 03/27/25 05:04 03/24/25 04:25 03/23/25 18:26 03/23/25 17:00 Random Vancomycin Level 19.2 ug/mL (5-10) Total Bilirubin 0.5 mg/dL (0.2-1.0) Aspartate Amino Transferase (AST) 190 U/L (13-40) Alanine Aminotransferase (ALT) 77 U/L (7-40) Alkaline Phosphatase 127 U/L (46-116) Total Protein 6.3 g/dL (5.7-8.2) Albumin 3.7 g/dL (3.2-4.8) Lactic Acid Level 1.4 mmol/L (0.4-2.0) Urine WBC Clumps Present /hpf (None Seen) Urine Mucus Few (None Seen) Test 03/23/25 09:20 03/23/25 04:45 03/22/25 01:50 03/22/25 00:15 Blood Gas EPAP 5 Blood Gas IPAP 12 Iron Level 22 ug/dL (50-170) Total Iron Binding Capacity 257 ug/dL (250-425) Percent Iron Saturation 8.6 % (15-50) Ferritin 61.3 ng/mL (10-291) Influenza Type A Antigen Negative (Negative) Influenza Type B Antigen Negative (Negative) SARS-CoV-2 Antigen (Rapid) Negative (NEGATIVE) Hemoglobin A1c 11.5 % A1C (<5.7) Troponin I High Sensitivity 16 ng/L (</=34) B-Type Natriuretic Peptide 2378.35 pg/mL (0-100) Thyroid Stimulating Hormone (TSH) 3.30 uIU/mL (0.55-4.78) Other Laboratory Tests 04/02/25 05:10 Brief Hx & Hospital Course: 69-year-old lady admitted to the hospital from the emergency room with altered level of consciousness and respiratory failure. She was treated for sepsis and septic shock. Patient was treated for encephalopathy, respiratory, failure COPD, and acute on chronic heart failure. Patient's condition was not improving significantly. She was made DNR. Daughter requested hospice evaluation and patient was going to be discharged home on hospice. the patient in the hospital before discharge. Condition at Discharge: Guarded Final Diagnosis/Problems List Acute respiratory failure Sepsis and septic shock COPD exacerbation Acute on chronic heart failure Hypernatremia Diabetes/uncontrolled Discharge Disposition: at Hospital Discharge Instruct/Medications Diet: See Comment (Patient at hospital) Activity: Activity comment: Patient in the hospital Follow Up/Referral: Medications: ASSESSMENT ASSESSMENT Assessment Date of Service: April 02, 2025 Billing Provider: KARLA MOSCOSO MD Common Visit Codes: [id number] DISCH DAY <30MIN KARLA MOSCOSO MD April 02, 2025 13:41
--- NOTE | 2025-04-02 15:08 | DVHNC2 ---
Other Procedure Procedure PATIENT PRONOUNCED THE PATIENT FEW MINUTES AGO. SHE WAS DNR STATUS. SHE WAS BEING DISCHARGED HOME ON HOSPICE . NO RESPONSES NO CARDIAC TOE NO RESPIRATORY EFFORT PATIENT PRONOUNCED AT 3:00 P.M. OF 04/02/2025 Date of Service: April 11, 2025 Billing Provider: KARLA MOSCOSO MD Common Visit Codes: NOT BILLABLE KARLA MOSCOSO MD April 02, 2025 15:08
--- NOTE | 2025-04-02 22:53 | DVHPN2 ---
Progress Note - Dictate Date Seen: April 02, 2025 Medical Necessity Reason Pt with a Central, PICC or Fol: Yes The following are medically ne: Wahl Catheter Reason for wahl catheter: Strict I&O Subjective Patient seen and examined at bedside. Remains on supplemental oxygen Overnight events reviewed. vital signs Vital Sign Date Time Temp Pulse Resp B/P (MAP) Pulse Ox O2 Delivery O2 Flow Rate FiO2 04/02/25 15:00 0 04/02/25 14:00 98 Nasal Cannula* 2 28 04/02/25 14:00 77 04/02/25 12:00 99.0 99.0 Total Intake and Output 04/01/25 04/01/25 04/02/25 15:00 23:00 07:00 Intake Total 180 ml 695 ml Output Total 1000 ml 600 ml Balance -820 ml 95 ml medications Current Medications Medications Dose Ordered Sig/Yesica Route Start Time Stop Time Status Last Admin Dose Admin Enoxaparin Sodium 40 mg DAILY SC 03/22/25 10:00 04/02/25 11:13 40 MG Aspirin 81 mg DAILY PO 03/22/25 10:00 04/02/25 11:14 81 MG Clopidogrel Bisulfate 75 mg DAILY PO 03/22/25 10:00 04/02/25 11:14 75 MG Pantoprazole Sodium 40 mg DAILY IV 03/22/25 10:00 04/02/25 11:12 40 MG Albuterol 2.5 mg Q6HR NEB 03/23/25 12:00 04/02/25 11:29 2.5 MG Ipratropium [place] 0.5 mg Q6HR NEB 03/23/25 12:00 04/02/25 11:29 0.5 MG Methylprednisolone Sodium Succinate 20 mg BID IV 03/27/25 10:00 04/02/25 11:13 20 MG Acetylcysteine 100 mg Q6HR NEB 03/29/25 18:00 04/02/25 11:29 100 MG Furosemide 40 mg DAILY IV 03/31/25 10:00 Hold 04/01/25 08:35 40 MG Enteral Nutritional Formula 1,000 ml 40ML/HR GT 03/31/25 21:30 04/01/25 02:01 1,000 ML Acetaminophen 650 mg Q6HP PRN PO 04/01/25 08:15 Carvedilol 6.25 mg Q12HR NG 04/01/25 10:00 04/01/25 22:28 6.25 MG Losartan Potassium 50 mg DAILY NG 04/01/25 10:00 04/01/25 09:13 50 MG Empaglifozin 10 mg DAILY NG 04/01/25 10:00 04/02/25 11:14 10 MG Ceftriaxone Sodium 50 ml @ 100 mls/hr DAILY@09 IV 04/01/25 09:00 04/02/25 08:14 100 MLS/HR Diagnostic Test (Pha) 1 strip IQ4HR 04/01/25 20:00 04/02/25 12:33 1 STRIP Insulin Human Regular IQ4HR SC 04/01/25 20:00 04/02/25 12:35 6 UNITS Dextrose 50 ml UD PRN IV 04/01/25 19:00 Insulin Glargine 12 units DAILY@1000 SC 04/02/25 10:00 04/02/25 11:16 12 UNITS Purified Water 400 ml Q6HR GT 04/01/25 22:15 04/02/25 11:39 400 ML objective Gen.: Patient lying in bed in no apparent distress. On supplemental oxygen. Head: Normocephalic, atraumatic. Eyes: EOMI/PERRLA. Ears: Normal hearing. Normal anatomy. Neck/trachea: Trachea midline, supple. Nose: Normal external anatomy. Mouth: Moist mucous membranes. Chest: Decreased air entry bilaterally. No wheezing or rhonchi. Cardiovascular: Positive S1, positive S2. Regular rate and rhythm. Abdomen: Positive bowel sounds in all 4 quadrants. Soft, non-tender, non- distended. : Deferred. Rectal: Deferred. Skin: Warm, dry. Intact. Extremities: 2+ radial pulses bilaterally. No lower extremity edema. Neuro: Altered. Responding to tactile/verbal stimuli. No gross motor or sensory deficits. Cranial nerves II through XII intact. Gait not assessed. laboratory and microbiology Laboratory Tests 04/02/25 05:10 Test 04/02/25 05:10 Range/Units Serum Glucose 308 H 74-106 mg/dL Assessment/Plan Impression: Acute hypoxic respiratory failure Acute metabolic encephalopathy Urinary tract infection line COPD Pneumonia likely due to g negative versus Gram-positive bacteria Pulmonary edema Small pleural effusion Atelectasis Events: Patient seen at bedside Remains on supplemental oxygen, 2 LPM NC Taper O2 as tolerated Patient is more altered Responding to tactile/verbal stimuli CT head showed no acute intracranial abnormalities. ABG notable for alkalemia Family agreed for hospice Head of bed elevation Aspiration precautions Continue IV steroids - taper as tolerated Continue antibiotics Continue bronchodilators Incentive spirometry Continue blood pressure control NGT Diurese with Lasix Monitor renal function Monitor electrolytes. Supplement as necessary. Potassium supplementation Monitor ins and outs Wound care DVT prophylaxis - Lovenox S/p bronchoscopy with BAL of RML on 03/28/25 - cleared mucous plugging from L5- L10 and R4-R10 Please see separate procedure note for details. Sent for fungal and bacterial cultures. Labs and imaging reviewed. Rest of plan as noted below. Plan: S/p extubation on 03/29/25 On supplemental oxygen Titrate to keep O2 sats above 90%. Continue antibiotics. F/u cultures. IV steroids Monitor renal function due to acute kidney injury. Monitor electrolytes. Supplement as necessary. Monitor ins outs. Nutritional support. Accu-Cheks, ISS. GI/DVT prophylaxis. Patient is DNR status Condition: Critical Prognosis: Poor given multiple comorbidities. Rest of plan per hospitalist and other consultants. A total of 35 minutes of critical care time was spent reviewing the patient record, examining the patient, making a diagnostic and therapeutic plan, discussing this plan with the medical personnel, following up on diagnostic studies and following the patient for clinical stability excluding any and all procedures. At least 50% of this time was spent in direct, [id number] contact. Thank you Dr. Fernandes for allowing me to participate in this patient's care. Please do not hesitate to contact me if you have any questions or concerns. This medical document was created using an electronic medical record system with [employer] dictation system. Although this document has been carefully reviewed, there may still be some phonetic and typographical errors. These areas are purely typographical due to imperfections of the software programs, and do not reflect any compromise in the patient's medical care. Dietary Evaluation Review Comments: Nutrition Recommendation: 1. TF Pivot 1.5 @ 45 ml/hr x 24 hr (GOAL) along with Pro-stat 1 pk daily. Begin @ 10 ml/hr; advance by 10 ml Q4 hrs or as tolerated to 45 ml/hr x 24 hrs 2. Provide free water flushes of 30 ml Q6 hrs (120 ml total); adjust PRN 3. Syd 1 pk BID, Vit C 500mg BID, Zinc sulfate 220 mb BID x 10 days, MVI w minerals 1 tab daily 4. Monitor BMP/lytes and replete to WNL/PRN TF Provision: TF at goal to provide 1080 ml total volume, 1620 kcal (+Pro-stat 100 kcal = 1720 kcal), 101 gm pro (+15gm prostat = 116gm), 820 ml H20 (meets 100% est. kcal needs, 100% est. pro needs) Expected Outcomes/Goals: To meet at least 75% estimated needs pressure ulcer & DTI to improve FU 2-3 days Plan discussed with: Patient, Other (JOURDAN Bustamante) URMILA LLOYD MD April 02, 2025 22:53
== END 2025-04-02 15:00 | DRG 870 ==
LOC: EDBD 23:21 → ER 23:21 → OVERFLOW 03-22 03:35 → WEST WING 03-22 15:53 → DOU IN ICU 03-23 13:20 → ICU CENTRL 03-23 14:46
PROVIDERS: ADMIT Student in an Organized Health Care Education/Training Program; ATTEND Student in an Organized Health Care Education/Training Program
PROC: 05HY33Z Insertion of Infusion Device into Upper Vein, Percutaneous Approach (ICD-10-PCS; principal; 2025-03-23)
PROC: 5A1955Z Respiratory Ventilation, Greater than 96 Consecutive Hours (ICD-10-PCS; 2025-03-23)
PROC: 0BH17EZ Insertion of Endotracheal Airway into Trachea, Via Natural or Artificial Opening (ICD-10-PCS; 2025-03-23)
PROC: 5A09357 Assistance with Respiratory Ventilation, Less than 24 Consecutive Hours, Continuous Positive Airway Pressure (ICD-10-PCS; 2025-03-23)
PROC: 0B9D8ZX Drainage of Right Middle Lung Lobe, Via Natural or Artificial Opening Endoscopic, Diagnostic (ICD-10-PCS; 2025-03-28)
PROC: 0BC78ZZ Extirpation of Matter from Left Main Bronchus, Via Natural or Artificial Opening Endoscopic (ICD-10-PCS; 2025-03-28)
PROC: 5A09357 Assistance with Respiratory Ventilation, Less than 24 Consecutive Hours, Continuous Positive Airway Pressure (ICD-10-PCS; 2025-03-29)
PROC: 05HB33Z Insertion of Infusion Device into Right Basilic Vein, Percutaneous Approach (ICD-10-PCS; 2025-04-01)
PROC: B54MZZA Ultrasonography of Right Upper Extremity Veins, Guidance (ICD-10-PCS; 2025-04-01)
DX: A41.59 Other Gram-negative sepsis (principal); G93.41 Metabolic encephalopathy; L89.153 Pressure ulcer of sacral region, stage 3; I50.23 Acute on chronic systolic (congestive) heart failure; J15.69 Pneumonia due to other Gram-negative bacteria; J96.21 Acute and chronic respiratory failure with hypoxia; N17.0 Acute kidney failure with tubular necrosis; J15.9 Unspecified bacterial pneumonia; R65.21 Severe sepsis with septic shock; N39.0 Urinary tract infection, site not specified; J44.1 Chronic obstructive pulmonary disease with (acute) exacerbation; J44.0 Chronic obstructive pulmonary disease with (acute) lower respiratory infection; F03.94 Unspecified dementia, unspecified severity, with anxiety; I13.0 Hypertensive heart and chronic kidney disease with heart failure and stage 1 through stage 4 chronic kidney disease, or unspecified chronic kidney disease; I38 Endocarditis, valve unspecified; E87.0 Hyperosmolality and hypernatremia; E87.3 Alkalosis; Z20.822 Contact with and (suspected) exposure to COVID-19; Z66 Do not resuscitate; I25.10 Atherosclerotic heart disease of native coronary artery without angina pectoris; E11.65 Type 2 diabetes mellitus with hyperglycemia; N18.9 Chronic kidney disease, unspecified; E11.22 Type 2 diabetes mellitus with diabetic chronic kidney disease; D50.9 Iron deficiency anemia, unspecified; Z95.810 Presence of automatic (implantable) cardiac defibrillator; Z88.6 Allergy status to analgesic agent; Z88.8 Allergy status to other drugs, medicaments and biological substances; Z83.3 Family history of diabetes mellitus; Z82.49 Family history of ischemic heart disease and other diseases of the circulatory system; Z81.8 Family history of other mental and behavioral disorders; Z79.82 Long term (current) use of aspirin; Z79.4 Long term (current) use of insulin; Z79.899 Other long term (current) drug therapy; Z90.49 Acquired absence of other specified parts of digestive tract
CPT/HCPCS: 36415; 36556; 36600; 70450; 71045; 74176; 80048; 80053; 80202; 81001; 82728; 82805; 82962; 83036; 83540; 83550; 83605; 83735; 83880; 84132; 84443; 84484; 85025; 87040; 87070; 87077; 87081; 87086; 87186; 87205; 87426; 87804; 92610; 93005; 93306; 94003; 94640; 94660; 94668; G0378; J1815; J1885; J2470; J2543; J2704; J3480; J7060